=== PATIENT | male | born 1950 | race Caucasian/White ===

== ENCOUNTER → 2017-04-25 08:54 | Outpatient (CLI) | payer OTHER, SELFPAY ==
[2017-04-25 12:48] LABS: Absolute Lymphocyte Count 1.37 X10^3/ul (0.83-4.51); Absolute Neutrophil Count 4.2 X10^3/uL (2.0-7.7); Basophil# 0.01 X10^3/uL; Basophil% 0.2 % (0-1); Eosinophil# 0.18 X10^3/uL; Eosinophils% 2.9 % (0-5); Hematocrit 45.5 % (40-54); Hemoglobin 15.2 g/dl (13.0-16.5); Lymphocyte # 1.37 X10^3/ul (4.0); Lymphocyte % 21.9 % (19-41); Mean Corp Hgb Conc 33.4 g/gl (32-36); Mean Corpuscular Hgb 28.8 pg (27.0-32.0); Mean Corpuscular Volume 86.2 fL (80-94); Mean Platelet Vol. 11.2 fl (6.2-12.0); Monocyte# 0.52 X10^3/uL; Monocyte% 8.3 % (0-10); Neutrophil # 4.18 X10^3/uL (2.7-7.7); Neutrophil % 66.5 % (47-70); Platelet Count 188 K/mm3 (150-450); RBC Distribution Width CV 15.2 % (11.6-14.6); RBC Distribution Width SD 48.2 fl (35.1-43.9); Red Blood Count 5.28 M/mm3 (4.6-6.2); White Blood Count 6.3 K/mm3 (4.4-11.0)
[2017-04-25 12:54] LABS: POSITIVE COUNT NO; POSITIVE DIFFERENTIAL NO; POSITIVE MORPHOLOGY NO
[2017-04-25 12:55] LABS: PSA,Total - Annual Screen 2.02 ng/mL (0.00-4.00)
== END | disposition home or self-care (01) ==
PROVIDERS: Internal Medicine Medical Oncology; Family Provider Family Medicine; PCP Family Medicine; Visit Provider Family Medicine
DX: Z12.5 Encounter for screening for malignant neoplasm of prostate (principal)
CPT/HCPCS: 36415; 84153; 85025; G0103

== ENCOUNTER → 2017-11-02 08:13 | Outpatient (CLI) | payer MEDICARE, OTHER, SELFPAY ==
[2017-11-02 10:00] LABS: Absolute Lymphocyte Count 1.36 X10^3/ul (0.83-4.51); Absolute Neutrophil Count 4.8 X10^3/uL (2.0-7.7); Basophil# 0.01 X10^3/uL; Basophil% 0.1 % (0-1); Eosinophils% 1.4 % (0-5); Hematocrit 47.1 % (40-54); Hemoglobin 16.2 g/dl (13.0-16.5); Lymphocyte # 1.36 X10^3/ul (4.0); Lymphocyte % 19.6 % (19-41); Mean Corp Hgb Conc 34.4 g/gl (32-36); Mean Corpuscular Volume 90.2 fL (80-94); Monocyte# 0.69 X10^3/uL; Monocyte% 9.9 % (0-10); Neutrophil # 4.77 X10^3/uL (2.7-7.7); Neutrophil % 68.9 % (47-70); Platelet Count 171 K/mm3 (150-450); RBC Distribution Width CV 14.3 % (11.6-14.6); RBC Distribution Width SD 46.6 fl (35.1-43.9); Red Blood Count 5.22 M/mm3 (4.6-6.2); White Blood Count 6.9 K/mm3 (4.4-11.0)
[2017-11-02 10:11] LABS: POSITIVE COUNT NO; POSITIVE DIFFERENTIAL NO; POSITIVE MORPHOLOGY NO
[2017-11-02 10:17] LABS: AST(SGOT) 31 U/L (15-37); Alanine Aminotransfer ALT/SGPT 59 U/L (16-61); Albumin, Serum 3.9 g/dL (3.2-5.0); Alkaline Phosphatase 109 U/L (45-117); Anion Gap 7 (5-15); BUN 24 mg/dL (7-18); BUN/Creat Ratio 24.2 RATIO (10-20); Calcium,Total 9.2 mg/dL (8.5-10.1); Chloride 104 mmol/L (98-107); Cholesterol 207 mg/dL (200); Creatinine, Serum 0.99 mg/dL (0.70-1.30); EST Glomerular Filtration Rate 80 mL/min (>60); Est Glom Filt Rate - Afr Amer 97 mL/min (>60); Ferritin 31 ng/mL (26-388); Globulin 3.9 g/dL (2.2-4.2); Glucose 117 mg/dL (74-106); High Density Lipoprotein 44 mg/dL; Iron 120 ug/dL (65-175); Potassium 3.9 mmol/L (3.5-5.1); Protein, Total 7.8 g/dL (6.4-8.2); Sodium Level 138 mmol/L (136-145); Triglycerides 165 mg/dL; Very Low Density Lipoprotein 33 mg/dL (5-40)
== END ==
PROVIDERS: Internal Medicine Medical Oncology; Family Provider Family Medicine; PCP Family Medicine; Visit Provider Family Medicine
DX: E83.118 Other hemochromatosis (principal); R73.01 Impaired fasting glucose; I10 Essential (primary) hypertension; E55.9 Vitamin D deficiency, unspecified
CPT/HCPCS: 80053; 80061; 82306; 82728; 83540; 85025

== ENCOUNTER → 2018-03-15 10:15 | Outpatient (CLI) | payer MEDICARE, OTHER, SELFPAY ==
[2018-03-15 12:33] LABS: Creatinine, Serum 1.01 mg/dL (0.70-1.30); EST Glomerular Filtration Rate 79 mL/min (>60); Est Glom Filt Rate - Afr Amer 95 mL/min (>60)
== END ==
PROVIDERS: Family Provider Family Medicine; PCP Family Medicine; Visit Provider Orthopaedic Surgery
DX: M16.11 Unilateral primary osteoarthritis, right hip (principal); N17.9 Acute kidney failure, unspecified
CPT/HCPCS: 36415; 82565

== ENCOUNTER → 2018-06-08 11:44 | Outpatient (CLI) | payer MEDICARE, SELFPAY ==
[2018-06-08 11:44] VITALS: BMI 38.0
[2018-06-08 16:02] LABS: PSA,Total - Annual Screen 2.19 ng/mL (0.00-4.00)
--- OUTSIDE RECORDS SUMMARY | 2018-07-25 07:15 | XMS RPT_ITS ---
:1950 Author Organization OHIP Support Name Relationship Address Phone [facility] Unavailable [address] + [place] [address] TIMOTEO, CHELSEA Unavailable [address] [facility] + [place] [address] COLIN ACHARYA Unavailable Unavailable + [facility] Unavailable [address] + [place] [address] TIMOTEO, CHELSEA Unavailable [address] [facility] + [place] [address] COLIN ACHARYA Unavailable Unavailable + [facility] Unavailable Unavailable + [facility] Unavailable [address] + [place] [address] TIMOTEO, CHELSEA Unavailable [address] [facility] + [place] [address] COLIN ACHARYA Unavailable Unavailable + [facility] Unavailable [address] + [place] [address] TIMOTEO, CHELSEA Unavailable [address] [facility] + [place] [address] COLIN ACHARYA Unavailable Unavailable + [facility] Unavailable [address] + [place] [address] TIMOTEO CHELSEA Unavailable [address] [facility] [address] [address] [address] + [place] [address] COLIN ACHARYA Unavailable Unavailable + [facility] [address] + [place] [address] TIMOTEO, CHELSEA Unavailable [address] + [place] [address] COLIN ACHARYA Unavailable Unavailable + [facility] [address] + [place] [address] TIMOTEO, CHELSEA Unavailable [address] + [place] [address] COLIN ACHARYA Unavailable Unavailable + [facility] [address] + [place] [address] TIMOTEO, CHELSEA Unavailable [address] + [place] [address] COLIN ACHARYA Unavailable Unavailable + [facility] [address] + [place] [address] TIMOTEO, CHELSEA Unavailable [address] + [place] [address] COLIN ACHARYA Unavailable Unavailable + [facility] [address] + [place] [address] TIMOTEO, CHELSEA Unavailable [address] + [place] [address] COLIN ACHARYA Unavailable Unavailable + [facility] [address] + [place] [address] TIMOTEO, CHELSEA Unavailable [address] + [place] [address] COLIN ACHARYA Unavailable Unavailable [phone] [facility] [address] + [place] [address] TIMOTEO, CHELSEA Unavailable [address] + [place] [address] COLIN ACHARYA Unavailable Unavailable [phone] Care Team Providers Name Role Phone Rober Sandoval Attending Unavailable Dae Peoples Referring Unavailable BenjaminTres Attending Unavailable Benjamin, Tres Primary Care Unavailable Benjamin, Tres Attending Unavailable Benjamin, Tres Primary Care Unavailable Benjamin, Tres Primary Care Unavailable Bayron Ling Attending Unavailable Benjamin, Tres Primary Care Unavailable Emily Ward Attending Unavailable Mars, Gabriela Attending Unavailable Benjamin, Tres Primary Care Unavailable Benjamin, Tres Referring Unavailable Benjamin, Tres Attending Unavailable BenjaminLeandro Referring Unavailable Benjamin, Tres Primary Care Unavailable Praanay, Roque Consulting Unavailable Praanay, Roque Attending Unavailable Benjamin, Tres Referring Unavailable Benjamin, Tres Primary Care Unavailable Mars, Gabriela Consulting Unavailable Carl Alcantar Attending Unavailable Benjamin, Tres Primary Care Unavailable Prah, Roque Attending Unavailable Benjamin, Tres Referring Unavailable Benjamin, Tres Primary Care Unavailable Mars, Gabriela Consulting Unavailable Dae Peoples Admitting Unavailable Dae Peoples Attending Unavailable Dae Peoples Referring Unavailable Benjamin, Tres Primary Care Unavailable Flores Beatty Attending Unavailable Flores Beatty Referring Unavailable Benjamin, Tres Primary Care Unavailable Eshenaur, Ray Admitting Unavailable Eshenaur, Ray Attending Unavailable Arnold Escobedo Primary Care Unavailable PROBLEMS PROBLEMS DATE TYPE CONDITION / CODE ATTENDING STATUS SOURCE 06/16/2018 Unknown R30.0 - Dysuria / Tres Alexander Active [facility] R30.0(ICD-10) [facility] Repository 06/15/2018 Unknown Z96.641 - Presence of Dae Peoples Active [facility] right artificial hip [facility] joint / Hospital Z96.641(ICD-10) Repository 06/08/2018 Unknown Z12.5 - Encounter for Tres Alexander Active [facility] screening for [facility] malignant neoplasm of Hospital prostate / Repository Z12.5(ICD-10) 06/05/2018 Unknown Z01.810 - Encounter Rober Sandoval Active [facility] for preprocedural [facility] cardiovascular Hospital examination / Repository Z01.810(ICD-10) 05/10/2018 Unknown E83.119 - Roque Gunter Active [facility] Hemochromatosis, Community unspecified / Hospital E83.119(ICD-10) Repository 05/10/2018 Unknown E83.118 - Other Mars, Gabriela Active [facility] hemochromatosis / Community E83.118(ICD-10) Hospital Repository 11/02/2017 Unknown R73.01 - Impaired Tres Alexander Active Sh[facility]uth[facility] fasting glucose / Community R73.01(ICD-10) Hospital Repository 11/02/2017 Unknown I10 - Essential Tres Alexander Active Shruthi (primary) [facility] hypertension / Hospital I10(ICD-10) Repository 11/02/2017 Unknown E55.9 - Vitamin D Tres Alexander Active [facility] deficiency, Community unspecified / Hospital E55.9(ICD-10) Repository PROCEDURES PROCEDURES No Procedure Records FoundRESULTS RESULTS Observed: 07/04/2018 Status: F Source: SORRENTO CULTURE, URINE 3:30 PM [facility] REPOSITORY Urine Culture ORGANISM 1: Enterococcus faecalis Reading Count >100,000 Enterococcus faecalis: REACTION Ampicillin $ <=2 S Benzylpenicillin NF 0.5 S Ciprofloxacin $ <=0.5 S Gentamicin SYN-S S Levofloxacin $ 0.5 S Linezolid $$$$ 2 S Nitrofurantoin $ <=16 S Streptomycin $ SYN-R R Tetracycline NF >=16 R Vancomycin $ 1 S (NF) indicates non-formulary drug at [facility]. Approval by Infectious Disease Specialist required before non-formulary drugs may be ordered and/or dispensed. * CLSI guidelines does not recommend testing of cephalosporins. This interpretation is deduced from Beta-lactam/penicillin results. Performed By: #### M100.0650 #### [facility] [address] [facility] [place], [address] EMERGENCY DEPARTMENT Observed: 06/22/2018 Status: F Source: SORRENTO SUMMARY 11:35 PM [facility] REPOSITORY [facility] Medical Records Department [address] [place] [address] Emergency Department Summary 06/22/18 1802 MR#: [id number] Acct: [id number] Name: EDWIGE MAHMOOD Rep #: [id number] : 1950 67 From: Emily Ward MD PCP: Tres Alexander DO Status: DEP ER - ER Visit Summary Date of Service: 06/22/18 Chief Complaint: Urinary retention History of Present Illness: The patient is a 67 M who had a hip replacement on June 14. He had urinary retention requiring a catheter which was taken out yesterday. He feels the need to urinate but is only getting small trickles of urine. He is currently on Bactrim although his urine did not show sign of infection when seen here the . He is also on Flomax twice a day. Physical Examination: Vital signs significant for hypertension with a blood pressure of 170/90. Head neck examination normal. Heart is regular rate and rhythm. Lung sounds are clear. Abdomen is soft with mild superpubic tenderness. Test Results: [] Emergency Department Course and Treatment: Alvarez catheter was placed with 1700 cc of urine returned. Patient feels significantly improved. Alvarez will be left in place. He will continue his Flomax and will follow up with urology. Treatment Plan: [] Disposition: Discharge Impression: Urinary retention This note was generated with [employer] dictation software. It may contain incorrect words, spelling, and punctuation that were not noted in review of the chart prior to signing ED Disposition - Plan for ED Patient: Chief Complaint: Complaint Referrals: Tres Alexander, DO [Primary Care Provider] - What to do if you have Problems For any increased pain, shortness of breath, bleeding, nausea or vomiting, chest pain, or any unexpected problems, contact your Primary Care Provider. Call [facility] ([phone]) or report to the closest Emergency Room. Call 911 if necessary. 06/22/18 9620 <Electronically signed by Emily Ward MD> Date Emily Ward MD Cosigner Signature (If Indicated): Date CC: Tres Alexander DO DISCHARGE INSTRUCTION Observed: 06/22/2018 Status: F Source: SORRENTO 6:06 PM [facility] REPOSITORY [facility] Medical Records Department [address] [place] [address] Discharge Instruction 06/22/18 0575 MR#: [id number] Acct: [id number] Name: EDWIGE MAHMOOD Rep #: [id number] : 1950 67 From: Emily Ward MD PCP: Tres Alexander DO Status: REG ER ED Disposition - Plan for ED Patient: Disposition: Home or Assisted Living Chief Complaint: Complaint Instructions: ED Retention Urinary Male Referrals: Yoshi Sanderson MD [STAFF PHYSICIAN] - As soon as possible What to do if you have Problems For any increased pain, shortness of breath, bleeding, nausea or vomiting, chest pain, or any unexpected problems, contact your Primary Care Provider. Call [facility] ([phone]) or report to the closest Emergency Room. Call 911 if necessary. 06/22/181805 <Electronically signed by Emily Ward MD> Date Emily Ward MD Cosigner Signature (If Indicated): Date CC: Tres Alexander DO EMERGENCY DEPARTMENT Observed: 06/19/2018 Status: F Source: SORRENTO SUMMARY 7:03 AM [facility] Medical Records Department [address] [place] [address] Emergency Department Summary 06/17/18 0738 MR#: [id number] Acct: [id number] Name: EDWIGE MAHMOOD Rep #: [id number] : 1950 67 From: Bayron Ling DO PCP: Tres Alexander DO Status: DEP ER - ER Visit Summary Date of Service: 06/17/18 Chief Complaint: Dysuria History of Present Illness: The patient is a 67 M who is postoperative day 3 from a right total hip replacement by Dr. Peoples. He states that on Tuesday he had a surgery and he stayed overnight. He does not know if he had a catheter. He states that he developed some dysuria and on Tuesday saw his primary care physician. He had a rectal examination which found an enlarged prostate. He was already on Flomax and they had him double his Flomax. I also placed him on Bactrim for UTI. He states he continues to have dribbling, suprapubic pressure, and dysuria. He notes that he had difficulty with urination with prior abdominal surgery. He is never had urologic surgery. He denies any fevers. No bowel issues. He notes his hip is progressing appropriately. He also states that he is passing gas but has not had a bowel movement since surgery. He took a Dulcolax this morning. Physical Examination: Afebrile vital signs are stable Gen: Well-nourished well-developed Head: Normocephalic atraumatic Eyes: Perrl EOMI ENT: TMs clear no rhinorrhea moist mucous membranes Neck: Supple no lymphadenopathy no JVD nontender CVS: Regular rate rhythm no murmurs normal S1-S2 Respiratory: No distress clear to auscultation bilaterally chest nontender Abdomen: Soft suprapubic discomfort with palpation normal bowel sounds no masses Back: Nontender Extremity: ABHAY hose are in place. Surgical site clean dry and intact. Skin: Normal color no rash Neuro: alert orientated 3 CN II-XII intact normal strength sensation reflexes Psych: Normal affect normal mood Test Results: Urinalysis is negative for infection. It did dip positive for nitrates however the microscopic is normal. Creatinine is normal. White count is normal. Emergency Department Course and Treatment: Bedside ultrasound was obtained which demonstrates a distended bladder. Alvarez catheter was placed by nursing. This removed 1500 cc. Patient feels significantly improved. He is to continue on his Flomax and Bactrim. I will also give him some magnesium citrate to assist in his bowel movement. He should call his doctor's office on Tuesday to see if they have office hours and can remove the catheter. I will also give him urology's phone number and if nobody can remove it he is to come back to the emergency room for removal to see if he can urinate again. Patient and noted understanding. Impression: 1. Acute urinary retention 2. Constipation This note was generated with [employer] software. It may contain incorrect words, spelling, and punctuation that were not noted in review of the chart prior to signing ED Disposition - Plan for ED Patient: Disposition: Home or Assisted Living Chief Complaint: Complaint Instructions: ED Retention Urinary Male Referrals: Tres Alexander DO [Primary Care Provider] - (call on Tuesday to see if they are able to remove catheter) Yoshi Sanderson MD [STAFF PHYSICIAN] - (call on Tuesday if your PCP is unable to remove catheter) Additional Instructions: If no one is available to remove the catheter please return to the emergency department What to do if you have Problems For any increased pain, shortness of breath, bleeding, nausea or vomiting, chest pain, or any unexpected problems, contact your Primary Care Provider. Call [facility] ([phone]) or report to the closest Emergency Room. Call 911 if necessary. 06/19/18 0703 <Electronically signed by Bayron Ling DO> Date Bayron Ling DO Cosigner Signature (If Indicated): Date CC: Tres Alexander DO URINALYSIS, COMPLETE Collected: 06/17/2018 Status: F Source: SHRUTHI 7:35 AM [facility] REPOSITORY Order Comment: Order Date: 06/17/18 Has pt arrived? Y How was Urine Obtained? CLEAN CATCH TYPE CODE TESTS RESULT OUT OF RANGE REFERENCE UNITS LAB L400.3000 Yellow COLOR Normal Yellow LAB L400.3050 Clear Normal CLARITY Clear LAB L400.3200 Normal mg/dl Normal GLUCOSE, UR Normal LAB L400.3300 Negative mg/dL Normal BILIRUBIN URINE Negative LAB L400.3400 Negative mg/dl High 5 KETONE UR LAB L400.3465 1.002-1.030 Normal SP.GR. DIPSTX 1.010 LAB L400.3550 5.0 - 8.0 pH UR Normal 6.5 LAB L400.3600 Negative mg/dl PROT Normal DIPSTX Negative LAB L400.3700 Normal mg/dl Normal UROBILI Normal LAB L400.3750 Negative High NITRITE UR Positive LAB L400.3780 Negative /ul Normal OCCULT BLOOD-UR Negative LAB L400.3800 Negative /ul LEUK Normal ESTERASE Negative LAB L400.4050 0-5 /hpf WBC 0 Normal SEEN LAB L400.4100 0-5 /hpf 0 Normal RBC-UA SEEN LAB L400.4150 0-5 /hpf SQUAM 0 Normal EPI SEEN LAB L400.4300 None Seen /hpf 0 Normal BACTERIA SEEN LAB L400.4350 <or=2+ /hpf 0 Normal MUCUS, URINE SEEN Performed By: #### L400.0001 #### [facility] [address] [place], [address] CBC W/DIFF, AUTOMATED Collected: 06/17/2018 Status: F Source: SORRENTO 7:18 AM [facility] REPOSITORY TYPE CODE TESTS RESULT OUT OF RANGE REFERENCE UNITS LAB L100.1000 4.4-11.0 K/mm3 Normal WBC 7.2 LAB L100.1200 4.6-6.2 M/mm3 Low RBC 4.22 LAB L100.1300 13.0-16.5 g/dl Normal HGB 13.6 LAB L100.1400 40-54 % Low HCT 38.5 LAB L100.1500 80-94 fL Normal MCV 91.2 LAB L100.1600 27.0-32.0 pg High MCH 32.2 LAB L100.1700 32-36 g/gl Normal MCHC 35.3 LAB L100.1810 11.6-14.6 % Normal RDW CV 13.4 LAB L100.1820 35.1-43.9 fl High RDW SD 44.0 LAB L100.1900 150-450 K/mm3 Low PLT 148 LAB L100.2000 6.2-12.0 fl Normal MPV 10.4 LAB L100.2100 47-70 % High NEUT% 77.2 LAB L100.2200 19-41 % Low LY% 12.8 LAB L100.2300 0-10 % Normal MONO% 8.5 LAB L100.2400 0-5 % Normal EO% 1.3 LAB L100.2500 0-1 % Normal BASO% 0.1 LAB L100.2550 0.0-0.9 % Normal IM GRAN % 0.100 Result Comment: IG% - Immature Granulocytes (promyelocytes, myelocytes and metamyelocytes) > 1% indicates that a LEFT SHIFT is Present. LAB L100.2620 2.0-7.7 X10 3/uL Normal Absolute Neut 5.5 LAB L100.2720 0.83-4.51 X10 3/ul Normal Absolute Lymph 0.92 Performed By: #### L100.0100 #### [facility] [address] [place], [place], [address] BASIC METABOLIC Collected: 06/17/2018 Status: F Source: SHRUTHI PROFILE (BMP) 7:18 AM [facility] REPOSITORY TYPE CODE TESTS RESULT OUT OF RANGE REFERENCE UNITS LAB L501.0100 74-106 mg/dL High GLU 146 Result Comment: Fasting Glucose result greater than or equal to 126 mg/dL suggests DIABETES MELLITUS per A.D.A. criteria. Please note revised GLUCOSE reference range effective 2017. LAB L501.1000 7-18 mg/dL Normal BUN 12 LAB L501.1100 0.70-1.30 mg/dL Normal CREAT,SERUM 1.03 Result Comment: The validity of the calculated GFR AND GFRAA in patients over 70 years has not been determined. Clinical correlation is essential. LAB L501.1110 >60 mL/min Normal EST GFR 77 Result Comment: Non- GFR Calc LAB L501.1115 >60 mL/min Normal EST GFR - AA 93 Result Comment: GFR Calc LAB L501.1255 ml/min Normal Estimated CRCL 83.13 LAB L501.1300 10-20 RATIO Normal BUN/CRE 11.7 LAB L501.2200 8.5-10 mg/dL Normal .1 CA 8.8 LAB L501.5300 136-14 mmol/L Low 5 NA 135 LAB L501.5600 3.5-5. mmol/L Low 1 K 3.3 LAB L501.5900 98-107 mmol/L Normal CL 98 LAB L501.6100 21.0-3 mmol/L Normal 2.0 CO2 26.0 LAB L501.6200 5-15 Normal GAP 11 Performed By: #### L500.2500 #### [facility] [address] [place], [place], [address] Observed: 06/16/2018 Status: F Source: SHRUTHI CULTURE, URINE 1:27 PM [facility] REPOSITORY Urine Culture Culture exhibits no growth. Performed By: #### M100.0650 #### [facility] [address] [place], [address] DISCHARGE INSTRUCTION Observed: 06/15/2018 Status: F Source: SHRUTHI 8:36 AM [facility] REPOSITORY [facility] Medical Records Department [address] [place] [address] Instructions for Home/Discharge Instructions 06/15/18 0835 MR#: [id number] Acct: [id number] Name: EDWIGE MAHMOOD Rep #: [id number] : 1950 67 From: Ronny Dupree PA-C PCP: Tres Alexander DO Status: ADM IN Discharge Diet: No Restrictions Discharge Activity: May Not Drive - while taking narcotic pain medications. May shower in (days): 1 - Turned dressing away from water Ice area for (Minutes): 20 - Every 1-2 hours while awake Weight Bearing Status: Weight bearing as tolerated Elevate: Operative Extremity Additional Activity Instructions:: Wear elastic stockings for 2 weeks. DO NOT use alcohol with narcotic pain medication. DO NOT make important decisions while taking narcotic medication. If you have problems with taking your medication (rash, itching, nausea, etc.) call the office at once. Call your doctor if your incision/area has: Increased Pain/ Swelling, Increased Redness, Foul Smelling Discharge Call your doctor if you observe: Fever of 101 or Higher Remove Dressing in (days):: 4 - Okay to remove dressing on June 19, 2018 Additional Instructions: Follow [facility] orthopedic postop instructions Allergies/Adverse Reactions: Allergies Penicillins [PCN] Allergy (Severe, Verified 05/29/18 14:27) Hives nabumetone [From Relafen] Allergy (Verified 05/29/18 14:27) Unknown ezetimibe [From Zetia] Adverse Reaction (Intermediate, Verified 05/10/18 12:11) Pain in joints Jhjhmhm-Icg-Xwv Reductase Inhibitor Adverse Reaction (Verified 05/10/18 12:11) Unknown Medications to take at Discharge Sertraline HCl [Zoloft] 100 mg PO DAILY 05/31/13 Multivit-Min/FA/Lycopene/Lut [Centrum Silver Tablet] 1 each PO DAILY 05/22/14 Losartan/Hydrochlorothiazide [Losartan-Hctz 50-12.5 mg Tab] 1 tab PO DAILY 05/10/18 Cholecalciferol (Vitamin D3) [Vitamin D3] 5,000 unit PO DAILY 05/29/18 Acetaminophen [Tylenol] 1,000 mg PO Q8 #90 tab 06/15/18 Aspirin [Aspirin, Baby] 81 mg PO BIDCM #60 tab.chew 06/15/18 Famotidine [Pepcid] 20 mg PO DAILY #30 tab 06/15/18 Meloxicam [Mobic] 7.5 mg PO BID tablet 06/15/18 Oxycodone [Oxyir] 5 - 10 mg PO Q4H PRN PRN 5 Days #60 tab 06/15/18 Senna/Docusate Sodium [Senokot-S] 2 tab PO BID #20 tab 06/15/18 The following prescriptions were given: Oxycodone [Oxyir] 5 - 10 mg PO Q4H PRN PRN 5 Days #60 tab PRN Reason: Mod-Severe Pain (-04/05) Acetaminophen [Tylenol] 1,000 mg PO Q8 #90 tab Famotidine [Pepcid] 20 mg PO DAILY #30 tab Aspirin [Aspirin, Baby] 81 mg PO BIDCM #60 tab.chew Senna/Docusate Sodium [Senokot-S] 2 tab PO BID #20 tab Primary Care Physician: Tres Alexander DO [Primary Care Provider] - Test Results: Test results from this visit will be discussed in further detail at your follow-up appointment, if applicable. Please Follow Up With: Physical Therapy @ [facility] When: 06/19/18 @ 2:30 pm Please Follow Up With: Ronny Dupree PA-C When: 06/28/18 @ 10:30 am 06/15/18 0836 <Electronically signed by Ronny Dupree PA-C> Date Ronny Dupree PA-C CC: Tres Alexander DO CBC-COMPLETE BLOOD CNT Collected: 06/15/2018 Status: F Source: SHRUTHI NO DIFF 5:54 AM [facility] REPOSITORY TYPE CODE TESTS RESULT OUT OF RANGE REFERENCE UNITS LAB L100.1000 4.4-11.0 K/mm3 Normal WBC 10.0 LAB L100.1200 4.6-6.2 M/mm3 Low RBC 4.00 LAB L100.1300 13.0-16.5 g/dl Normal HGB 13.1 LAB L100.1400 40-54 % Low HCT 37.1 LAB L100.1500 80-94 fL Normal MCV 92.8 LAB L100.1600 27.0-32.0 pg High MCH 32.8 LAB L100.1700 32-36 g/gl Normal MCHC 35.3 LAB L100.1810 11.6-14.6 % Normal RDW CV 12.9 LAB L100.1820 35.1-43.9 fl Normal RDW SD 43.0 LAB L100.1900 150-450 K/mm3 Low PLT 146 LAB L100.2000 6.2-12.0 fl Normal MPV 10.4 Performed By: #### L100.0500 #### [facility] [place], [address] BASIC METABOLIC Collected: 06/15/2018 Status: F Source: SHRUTHI PROFILE (BMP) 5:54 AM [facility] REPOSITORY TYPE CODE TESTS RESULT OUT OF RANGE REFERENCE UNITS LAB L501.0100 74-106 mg/dL High GLU 130 Result Comment: Fasting Glucose result greater than or equal to 126 mg/dL suggests DIABETES MELLITUS per A.D.A. criteria. Please note revised GLUCOSE reference range effective 2017. LAB L501.1000 7-18 mg/dL Normal BUN 18 LAB L501.1100 0.70-1.30 mg/dL Normal CREAT,SERUM 1.06 Result Comment: The validity of the calculated GFR AND GFRAA in patients over 70 years has not been determined. Clinical correlation is essential. LAB L501.1110 >60 mL/min Normal EST GFR 74 Result Comment: Non- GFR Calc LAB L501.1115 >60 mL/min Normal EST GFR - AA 90 Result Comment: GFR Calc LAB L501.1255 ml/min Normal Estimated CRCL 78.52 LAB L501.1300 10-20 RATIO Normal BUN/CRE 17.0 LAB L501.2200 8.5-10 mg/dL Normal .1 CA 8.6 LAB L501.5300 136-14 mmol/L Normal 5 NA 137 LAB L501.5600 3.5-5. mmol/L Normal 1 K 3.9 LAB L501.5900 98-107 mmol/L Normal CL 102 LAB L501.6100 21.0-3 mmol/L Normal 2.0 CO2 28.0 LAB L501.6200 5-15 Normal GAP 7 Performed By: #### L500.2500 #### [facility] [address] [facility] [place], [address] OPERATIVE REPORT Observed: 06/14/2018 Status: F Source: SORRENTO 12:11 PM [facility] REPOSITORY [facility] Medical Records Department [address] [place] [address] Operative Report 06/14/18 1022 MR#: [id number] Acct: [id number] Name: TIMOTEO,EDWIGE Moncada Rep #: [id number] : 1950 67 From: Dae Peoples MD PCP: Tres Alexander DO Status: ADM IN Y [id number] Date of Procedure: 06/14/18 Pre-Operative Diagnosis: Right hip osteoarthritis Post-Operative Diagnosis: Right hip osteoarthritis Surgery/Procedure Performed:: Right direct anterior total hip replacement Description of Surgical Findings:: stable hip with equal leg lengths hl7 developer: Shabnam Santillan Type of Anesthesia:: Spinal Anesthesiologist: Isma Paredes Special Medications: Cleocin 600 mg, 1 g TXA at incision, 1 g TXA closure, 10 mg Decadron, joint cocktail (5 mg Duramorph, 30 mL of 0.5% Ropivicaine, 1000 units of epinephrine, 30 mg of Toradol) Specimen's removed: Bony cuts Estimated Blood Loss (mL): 350 Fluids Replaced: 1 liter crystalloid Description of Procedure: Components used: 1. Accolade 2 Vincent femoral stem size 7 127 2. [place] trident acetabular shell size 62 mm 3. Vincent X3 polyethylene g 4. Vincent Biolox delta 36mm, 0mm femoral head Brief history operative indications: 67 yo M who failed conservative measures for their hip osteoarthritis. X-rays were consistent with osteoarthritis including joint space narrowing, osteophyte formation and subchondral cysts. Total hip replacement was discussed with the patient with risks and benefits including but not limited to blood loss, DVTs, PEs, neurovascular damage, dislocation, general risks of anesthesia including loss of life. Patient demonstrated an understanding medical clearance is obtained the patient was consented for surgery. Procedure: On the date of procedure the patient's R hip was marked in the preoperative area. Patient was then taken back to the operating room where anesthesia assumed control of the C-spine and airway and administered anesthetic. Patient was transferred to the operating table and placed in the supine position. The hips were placed at the break of the bed and a sacral bump was placed. The R lower extremity was then prepped out in a sterile fashion using chlorhexidine while the surgeon scrubbed. The PA was vital in the positioning of the patient. Upon reentering the room the R lower extremity was draped in the standard orthopedic fashion and the incision was marked. A timeout was called and everyone agreed upon the side, the site, the procedure be performed, antibody given, and patient's identity. At this time incision was made through skin, subcutaneous tissue, and fat down to fascia. The fascia was then incised and the TFL was retracted laterally. A retractor was placed on the lateral border of the femoral neck. Attention was directed to the inferior portion of the approach and all crossing vessels were identified and appropriately coagulated. A retractor was then placed on the medial portion of the femoral neck. The anterior capsule was then cleared of all soft tissue and then H shaped capsulotomy was made. The retractors were then placed inside the capsule. The femoral neck was identified and a cleanup cut was made. At this time a power corkscrew was used to remove the femoral head. Attention was then turned toward the acetabulum where the soft tissues were appropriately retracted and the acetabulum was sequentially reamed to 62 mm. A 62 mm cup was then selected and impacted into place. Acetabular liner was impacted into place and locking mechanism was verified. The position of the acetabular cup was then verified under live fluoroscopy. Attention was then turned to the femur. Soft tissue releases on the medial and lateral femoral neck were appropriately done, the leg was externally rotated and lateralized. A Lott retractor was placed medially and proximally to the greater trochanter this allowed appropriate visualization and exposure of the femoral canal. Rongeour was then used to remove excess lateral bone. A canal finder and entry broach were used to open the proximal canal. Once we verified we were down the femoral canal we subsequently broached up to a size 7 femur. The appropriate neck was placed in the previously selected head was trialed with a 0 mm neck. Traction was pulled and the hip was reduced with internal rotation. Once it was appropriately reduced and stability was checked. There was minimal shuck, equal leg lengths and appropriate stability with hyperextension and external rotation as well as with 90 flexion and internal rotation. Fluoroscopy was then also used to verify the position of the components and leg lengths using the contralateral side for comparison. The trial components were then dislocated the proximal femur was again exposed and the components were removed from the wound. The final components were verified and opened. The wound was copiously irrigated out with normal saline. The acetabulum was checked for any residual debris. The final components were placed and impacted. Traction and internal rotation were again used to reduce the hip. After adequate reduction the hip remained stable with appropriate leg lengths. The final components were once again checked with live fluoroscopy and were found to be satisfactory. The wound was then copiously irrigated with normal saline once more, and hemostasis was obtained. Closure was then done using #1 Vicryl runner to close the fascia. A 2-0 vicryl interuppted sutures were used to close the subcutaneous skin. A 3-0 Monocryl and Steri-Strips were used for final skin closure. A Silverlon dressing was placed. Patient was awakened by anesthesia and transferred to the [facility]. Patient was then transferred to the PACU for recovery. Postoperative plan: Patient will get 24 hours postop antibiotics. Patient will get in-house physical therapy and will be weight-bear as tolerated. Patient will follow up in office in 2 weeks for a wound check and x-rays. Grafts/Implants Used: Accolade 2, Trident 2 - Complications none - Admit VTE Documentation VTE Present on Admission: No VTE Mechan Device Prophylaxis: SCD's, Thigh High ABHAY Hose VTE Pharm Prophylaxis ordered?: Yes 06/14/18 1211 <Electronically signed by Dae Peoples MD> Date Dae Peoples MD CC: Tres Alexander DO; Dae Peoples MD Signed HIP MIN 2 VIEWS Observed: 06/14/2018 Status: F Source: SHRUTHI (PORTABLE) 7:17 AM [facility] REPOSITORY [facility] Imaging Services [address] [place] [address] Hip Min 2 Views (Portable) MR#: [id number] Acct: [id number] Name: EDWIGE MAHMOOD Rep #: [id number] : 1950 M 67 From: Devan Ny MD PCP: Tres Alexander DO Status: ADM IN Study: Hip Min 2 Views (Portable) Date of Exam: 06/14/18 Exam# [id number] Ordering Dr: Dae Peoples MD STUDY: X-RAY - RIGHT HIP REASON FOR EXAM: Male, 67 years old. Right hip replacement. TECHNIQUE: 2 views of the hip. COMPARISON: None. FINDINGS: The patient is status post right total hip replacement. There is good alignment. RAD/Hip Min 2 Views (Portable) IMPRESSION: Status post right total hip replacement. Electronically Signed: Devan Ny MD at 14:24 EST Tel [phone], Service support , CC: Tres Alexander DO; Dae Peoples MD Planning And Analysis Manager: Signed HIP 1 VIEW WITH Observed: 06/14/2018 Status: F Source: SHRUTHI PELVIS 2:59 AM [facility] REPOSITORY [facility] Imaging Services [address] [place] [address] Hip 1 view with Pelvis MR#: [id number] Acct: [id number] Name: EDWIGE MAHMOOD Coral Rep #: [id number] : 1950 M 67 From: Devan Ny MD PCP: Tres Alexander DO Status: ADM IN Study: Hip 1 view with Pelvis Date of Exam: 06/14/18 Exam# [id number] Ordering Dr: Dae Peoples MD STUDY: X-RAY - RIGHT HIP REASON FOR EXAM: Male, 67 years old. Anterior thalamic replacement. TECHNIQUE: 2 coned-down intraoperative views of the hip. COMPARISON: None. FINDINGS: Intraoperative fluoroscopic imaging was provided for right hip replacement. RAD/Hip 1 view with Pelvis IMPRESSION: Intraoperative imaging provided for right hip replacement. There is good alignment. Electronically Signed: Devan yN MD at 12:58 EST Tel [phone], Service support , CC: Tres Alexander DO; Dae Peoples MD Planning And Analysis Manager: Signed PSA,TOTAL - ANNUAL Collected: 06/08/2018 Status: F Source: SORRENTO SCREEN 11:52 AM [facility] REPOSITORY TYPE CODE TESTS RESULT OUT OF RANGE REFERENCE UNITS LAB L501.9910 0.00-4.00 ng/mL Normal PSA,TOT 2.19 SCREEN Result Comment: This test was performed using the TPSA assay method for the [employer] chemistry system. Values obtained with different assay methods cannot be used interchangably. When changing PSA assays in the course of monitoring a patient, additional sequential testing should be carried out to confirm baseline values. Performed By: #### L501.9910 #### [facility] [address] [place] [address]. [place], [address] HISTORY AND PHYSICAL Observed: 05/30/2018 Status: F Source: SORRENTO EXAM 9:59 PM [facility] REPOSITORY [facility] Medical Records Department [address] [place] [address] History and Physical 05/30/18 2158 MR#: [id number] Acct: [id number] Name: EDWIGE MAHMOOD Rep #: [id number] : 1950 67 From: Ronny Dupree PA-C PCP: Benjamin MENDOZATres Status: PRE IN Y Location: [facility] History and Physical DATE OF SURGERY: 06/14/2018 SCHEDULED PROCEDURE: Right Total Hip Arthroplasty HISTORY OF PRESENT ILLNESS: This is a 67-year-old male who is been having ongoing pain in his right hip since November 2017. Patient states his hip pain has been progressively getting worse. Pain is intermittent, aching, sharp, stabbing. She has increased pain standing. He has increased pain with walking. Patient does complain of startup pain. Pain is located over the lateral hip and radiates into the groin. He has difficult time with activities of daily living including getting dressed putting on socks as well as leisure activities such as walking. Pain does waken him at night. Patient has tried conservative measures consisting of rest, ice, elevation with minimal relief. Patient had an intra-articular right hip injection with only temporary relief. He states the injection gave him approximately 1 day of relief. He has been through physical therapy with no relief in symptoms. He has also been to the chiropractor with no relief in symptoms. Patient denies previous surgery on the right hip. Patient denies any chest pain, shortness of breath, fevers chills, or recent infections. Patient has a medical history pertinent for hypertension, M ni re's disease, hemachromatosis. We are obtaining surgical clearance from his primary care physician. Patient does see Dr. Gunter for his hemachromatosis. REVIEW OF SYSTEMS: ROS: Const: Reports hard of hearing, denies anorexia, anxiety, change in appetite, fever and weight change and vision problems. CV: Denies chest pain, heart murmur, irregular heartbeat and peripheral vascular disease. Resp: Reports sleep apnea (mild), but denies asthma, cough, pneumonia, SOB, tuberculosis and wheezing GI: Denies constipation, diarrhea, heartburn, nausea, bloody stools and vomiting, and difficulty swallowing. : Denies incontinence. Musculo: Denies leg swelling, trouble walking and weakness and limp. Skin: Denies Raynaud's, history of shingles and tattoo. Neuro: Denies ambulatory dysfunction, dizziness, numbness/tingling and tremor. Psych: Denies anxiety, depression, insomnia, mental illness and stress. Dwight/Lymph: Denies anemia, bleeding/bruising tendency and past transfusion. Reviewed, no changes. PAST MEDICAL HISTORY: Advance Care Plan: Other Directive, LIVING WILL Effective Date: 01/17/2018 PMH: Medical Problems: Arthritis, High Blood Pressure, Psoriasis, Mineres, Hemacromotosis Accidents: Fracture - Ankle Surgical Hx: Appendectomy - Shruthi Colon Resection - (1999) Shruthi Hernia Repair - [place] Arthroscopy - (09/07/2006) R KNEE [facility] MSK Back Fusion And L4 Removed - Vasectomy Hemilaminotomy Revision, Neuroforaminotomy - (03/17/2011) CAR @ [facility] Anesthesia Complications: None Assistive Devices: Dentures, Glasses, Hearing Aid Reviewed and updated. 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 Personal Habits: Smoking: Patient is a former smoker.Cigarette Use: Former - 1 pk/day for 15 yrs .Alcohol: Occasionally.Drug Use: Denies Use.Enjoy Exercising: Daily. Reviewed and updated. VITALS: Ht: 73.5 Wt: 299lb Wt k.626 BMI: 38.9 BP: 142/87 Pulse: 65 Resp: 20 T: 97.9 T: 36.6C ALLERGIES: Penicillin Relafen MEDICATIONS: Meloxicam 15 mg 1 by mouth every day, Vitamin D 5000 Unit 1po qday, Sertraline HCL 100 mg 1po qday, Losartan Potassium/Hydrochlorothiazide 50-12.5 mg 1 tab PO daily PRE-OP EXAM: General appearance:NORMAL Other: Eyes: Conjunctivae and lids: NORMAL Pupils: ERR Ears, Nose, Mouth, and Throat: NORMAL Other: Inspection of lips, teeth and gums: NORMAL Other: Neck: Examination of neck: no masses noted. Respiratory: Assessment of respiratory effort: NORMAL Other: Auscultation of lungs: clear to auscultation no wheezes, rhonchi or rales. Cardiovascular: Auscultation of heart: regular rate and rhythm, no murmurs, gallops or rubs. Exam of carotid arteries: NORMAL Other: Gastrointestinal: Exam of abdomen: soft, nontender, nondistended bowel sounds present. PHYSICAL EXAMINATION: Patient does walk with an antalgic gait. Patient has tenderness to palpation over the right greater trochanter. Range of motion right hip: Forward flexion 80, internal rotation neutral, external rotation 20. Pain is increased with range of motion. Patient has pain and weakness with single-leg stance on the right. Sensation intact to light touch. Neurovascularly intact. IMAGING STUDIES: X-rays of the right hip reveal joint space narrowing, subchondral sclerosis, osteophyte formation consistent with moderate to severe osteoarthritis. MRI of the right hip showed degenerative tearing of the labrum with articular cartilage thinning and subchondral cysts in the femoral head and acetabulum. This is consistent with severe arthrosis of the hip. Lumbar MRI reveals significant L5-S1 left sided foraminal stenosis and degenerative changes in lumbar spine. IMPRESSION: 1. Severe right hip osteoarthritis 2. Lumbar degenerative disc disease 3. Hypertension 4. M ni re's disease 5. Hemochromatosis PLAN: Dr. Dae Peoples did discuss and review with the patient all treatment options including surgical versus nonsurgical options. Patient does wish to proceed with the above-stated procedure. Potential risks, benefits, and complications of the procedure were discussed in detail including but not limited to , infection, nerve and blood vessel damage, persistent pain, numbness, tingling, paresthesias, blood clot, pulmonary embolism, and requirement for possible further surgery. The patient expressed full understanding and has no further questions for the doctor. Patient does agree to proceed with the above-stated procedure and has signed the surgery consent form. This dictation was created using voice recognition software. Phonetic and/or grammatical errors may exist.. ___ I have re-examined the patient. There are no clinical changes since date of exam. ___ See progress notes for changes. ___ Dictated on admission Date: Time: Signature: 05/30/18 2909 <Electronically signed by Ronny Eshenaur PA-C> Date Ronny Dupree PA-C Cosigner Signature: Date (if applicable) CC: Tres Alexander DO; Ronny PRIETO Signed 12 LEAD ELECTROCARDIOGRAM Observed: 05/30/2018 Status: F Source: SHRUTHI 3:28 PM [facility] REPOSITORY [facility] Cardiovascular Services [address] [place] [address] EKG - [facility] 05/29/18 1509 MR#: [id number] Acct: [id number] Name: EDWIGE MAHMOOD Rep #: [id number] : 1950 67 From: Rober Sandoval MD Attending Dr: Dae Peoples MD Status: PRE IN Ordering Dr: Dae Peoples MD Date: 05/29/18 Location: [facility] Sex: M C Admitted: Test Reason : Blood Pressure : / mmHG Vent. Rate : 060 BPM Atrial Rate : 060 BPM P-R Int : 162 ms QRS Dur : 076 ms QT Int : 400 ms P-R-T Axes : 047 058 038 degrees QTc Int : 400 ms Normal sinus rhythm Normal ECG Confirmed by LORI FREEMAN, ROBER ([id number]), editor magazine [employer]ATORRE ([id number]) on 05/30/2018 3:28:03 PM Referred By: Dae Peoples Confirmed By:ROBER SANDOVAL MD 05/30/18 1528 Date Rober Sandoval MD CC: Tres Alexander DO; Dae Peoples MD Date Dictated: 05/29/18 1509 Date Transcribed: 05/29/18 150 Planning And Analysis Manager: Signed CBC W/DIFF, AUTOMATED Collected: 05/29/2018 Status: F Source: SHRUTHI 3:14 PM [facility] REPOSITORY TYPE CODE TESTS RESULT OUT OF RANGE REFERENCE UNITS LAB L100.1000 4.4-11.0 K/mm3 Normal WBC 8.9 LAB L100.1200 4.6-6.2 M/mm3 Normal RBC 5.16 LAB L100.1300 13.0-16.5 g/dl High HGB 16.7 LAB L100.1400 40-54 % Normal HCT 47.0 LAB L100.1500 80-94 fL Normal MCV 91.1 LAB L100.1600 27.0-32.0 pg High MCH 32.4 LAB L100.1700 32-36 g/gl Normal MCHC 35.5 LAB L100.1810 11.6-14.6 % Normal RDW CV 13.5 LAB L100.1820 35.1-43.9 fl High RDW SD 44.4 LAB L100.1900 150-450 K/mm3 Normal PLT 182 LAB L100.2000 6.2-12.0 fl Normal MPV 11.0 LAB L100.2100 47-70 % Normal NEUT% 65.5 LAB L100.2200 19-41 % Normal LY% 23.3 LAB L100.2300 0-10 % Normal MONO% 9.0 LAB L100.2400 0-5 % Normal EO% 1.7 LAB L100.2500 0-1 % Normal BASO% 0.2 LAB L100.2550 0.0-0.9 % Normal IM GRAN % 0.300 Result Comment: IG% - Immature Granulocytes (promyelocytes, myelocytes and metamyelocytes) > 1% indicates that a LEFT SHIFT is Present. LAB L100.2620 2.0-7.7 X10 3/uL Normal Absolute Neut 5.8 LAB L100.2720 0.83-4.51 X10 3/ul Normal Absolute Lymph 2.06 Performed By: #### L100.0100 #### [facility] [address] [place], [place], [id number] BASIC METABOLIC Collected: 05/29/2018 Status: F Source: SHRUTHI PROFILE (BMP) 3:14 PM [facility] REPOSITORY TYPE CODE TESTS RESULT OUT OF RANGE REFERENCE UNITS LAB L501.0100 74-106 mg/dL High GLU 119 Result Comment: Fasting Glucose result from 100 to 125 mg/dL suggests IMPAIRED HOMEOSTASIS per A.D.A. criteria. Please note revised GLUCOSE reference range effective 2017. LAB L501.1000 7-18 mg/dL High BUN 23 LAB L501.1100 0.70-1.30 mg/dL Normal CREAT,SERUM 0.92 Result Comment: The validity of the calculated GFR AND GFRAA in patients over 70 years has not been determined. Clinical correlation is essential. LAB L501.1110 >60 mL/min Normal EST GFR 87 Result Comment: Non- GFR Calc LAB L501.1115 >60 mL/min Normal EST GFR - AA 106 Result Comment: GFR Calc LAB L501.1255 ml/min Normal Estimated CRCL 90.47 LAB L501.1300 10-20 RATIO High BUN/CRE 24.9 LAB L501.2200 8.5-10 mg/dL Normal .1 CA 9.3 LAB L501.5300 136-14 mmol/L Normal 5 NA 137 LAB L501.5600 3.5-5. mmol/L Normal 1 K 3.8 LAB L501.5900 98-107 mmol/L Normal CL 102 LAB L501.6100 21.0-3 mmol/L Normal 2.0 CO2 25.0 LAB L501.6200 5-15 Normal GAP 10 Performed By: #### L500.2500 #### [facility] [address] [facility] [place], [address] Observed: 05/29/2018 Status: F Source: SORRENTO MRSA/SAID SCREEN 3:14 PM [facility] REPOSITORY MRSA/SAID SCRN S. AUREUS S. aureus Negative MRSA MRSA Negative Performed By: #### M100.651 #### [facility] [place], [address] ONCOLOGY VISIT REPORT Observed: 05/10/2018 Status: F Source: SORRENTO 12:12 PM [facility] REPOSITORY [facility] [address] [address] OFFICE VISIT Date of Service: 05/10/18 1159 MR#: [id number] Acct: [id number] Name: EDWIGE MAHMOOD Rep #: [id number] : 1950 From: Roque Gunter MD Age/Sex: 67/M Location: ON[facility] Status: Signed Subjective - Date of Service Date of Service:: 05/10/18 - Chief Complaint F/u for hemochromatosis. 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 He has been having therapeutic phlebotomies, lately on hold because Ferritin has been less than 50. Comes in for follow up today. He feels well, going for R hip surgery. He feels he has a foreign body sensation in the back of the tongue x 2 wks. - Past Medical/Social History Past Medical History Past Medical History: Arthritis,Diverticulitis,Hyperlipidemia, Hypertension Other Past Medical History: Hereditary Hemochromatosis cirrhoisis vertigo MAURI Past Surgical History Surgical: Appendectomy,Back,Colon resection,Hernia repair Other Surgical History: Vasectomy Bilateral eye surgery Left Retinal Repair Right ear shunt Family History Paternal Past Medical History: Heart disease Maternal Past Medical History: COPD Social History Smoking Status Unknown if ever smoked Review of Systems Constitutional:: Denies: Fever, Sweats, Weight loss, Appetite change, Chills Cardiovascular:: Denies: Chest pain, Palpitations, Dyspnea on exertion, Orthopnea, PND, Shortness of breath Respiratory: Denies: Cough, Hemoptysis, Shortness of Breath, Wheezing Gastrointestinal:: Denies: Abdominal pain, Nausea, Vomiting, Diarrhea, Constipation, Hematochezia Genitourinary: Denies: Dysuria, Hematuria, 15, Flank pain Musculoskeletal:: Denies: Back pain, Myalgia, Arthralgia Skin: Denies: Rash, Skin Changes, Wounds Neurological:: Denies: Headache, Dizziness, Visual changes, Tinnitus, Hearing loss Psychiatric: Denies: Anxiety, Depression, Homicidal Ideations, Suicidal Ideations Vital Signs Height 6 ft 2.5 in Weight: 131.088 kg Weight in Pounds 289.0 lbs Pulse Ox 95 - Physical Exam General: Alert, Oriented x3, No apparent distress HEENT: Atraumatic, PERRLA, EOMI, Normocephalic Oropharynx:: Dry mucosa Neck:: Supple, Trachea midline. Negative for: JVD, bilateral Cardiac:: Regular rate, Regular rhythm, Normal S1, Normal S2. Negative for: Murmur Lungs: Clear to auscultation, Excusion symmetrical. Negative for: Rhonchi, Wheezes Abdomen:: Bowel sounds x 4, Soft, Non-tender, Non-distended. Negative for: Hepatosplenomegaly Extremities:: Negative for: Cyanosis, Edema Neurological: Neuro grossly intact Skin:: Negative for: Lesions, Rash, Petechiae, Ecchymosis Psychiatric:: Appropriate affect, Euthymic Lymphatics:: Negative for: Cervical lymphadenopathy, Supraclavicular lymphadenopathy, Axillary lymphadenopathy Laboratory Data: Laboratory Tests WBC 5.8 (4.4-11.0) K/mm3 RBC 4.84 (4.6-6.2) M/mm3 Hgb 15.9 (13.0-16.5) g/dl Laboratory Tests Iron 76 Ferritin 26 Assessment and Plan Hemochromatosis, Ferritin 26 on 05/04/2018. No need for phlebotomy. Foreign body sensation in throat. Plan is to continue Observation. He will contact ENT-Dr. Briggs for evaluation. Pt wants 6 months follow up. RTC 6 months with CBC, Ferritin. Medications: Prescriptions This Visit Medication Instructions Recorded Meloxicam [Mobic] 15 mg PO QODAY 09/16/16 Primary Care Provider: Tres Alexander DO Referring Provider: - Problem List (1) Hemochromatosis Status: Chronic Code Visit Office Visits / Consults: [id number] OV L3 Est 05/10/18 1212 <Electronically signed by Roque Gunter MD> Date Roque Gunter MD Cosigner Signature: Date (if applicable) CC: Tres Alexander DO CBC W/DIFF, AUTOMATED Collected: 05/10/2018 Status: F Source: SHRUTHI 11:17 AM [facility] REPOSITORY Order Comment: Reason for Laboratory Test . TYPE CODE TESTS RESULT OUT OF RANGE REFERENCE UNITS LAB L100.1000 4.4-11.0 K/mm3 Normal WBC 5.8 LAB L100.1200 4.6-6.2 M/mm3 Normal RBC 4.84 LAB L100.1300 13.0-16.5 g/dl Normal HGB 15.9 LAB L100.1400 40-54 % Normal HCT 45.2 LAB L100.1500 80-94 fL Normal MCV 93.4 LAB L100.1600 27.0-32.0 pg High MCH 32.9 LAB L100.1700 32-36 g/gl Normal MCHC 35.2 LAB L100.1810 11.6-14.6 % Normal RDW CV 13.9 LAB L100.1820 35.1-43.9 fl High RDW SD 47.3 LAB L100.1900 150-450 K/mm3 Normal PLT 153 LAB L100.2000 6.2-12.0 fl Normal MPV 11.1 LAB L100.2100 47-70 % Normal NEUT% 62.3 LAB L100.2200 19-41 % Normal LY% 23.2 LAB L100.2300 0-10 % High MONO% 10.7 LAB L100.2400 0-5 % Normal EO% 3.4 LAB L100.2500 0-1 % Normal BASO% 0.2 LAB L100.2550 0.0-0.9 % Normal IM GRAN % 0.200 Result Comment: IG% - Immature Granulocytes (promyelocytes, myelocytes and metamyelocytes) > 1% indicates that a LEFT SHIFT is Present. LAB L100.2620 2.0-7.7 X10 3/uL Normal Absolute Neut 3.6 LAB L100.2720 0.83-4.51 X10 3/ul Normal Absolute Lymph 1.35 Performed By: #### L100.0100 #### [facility] [address] [place], [address] COMPREHENSIVE METABOLIC Collected: 05/10/2018 Status: F Source: [facility] 11:17 AM [facility] REPOSITORY Order Comment: Reason for Laboratory Test . TYPE CODE TESTS RESULT OUT OF RANGE REFERENCE UNITS LAB L501.0100 74-106 mg/dL High GLU 117 Result Comment: Fasting Glucose result from 100 to 125 mg/dL suggests IMPAIRED HOMEOSTASIS per A.D.A. criteria. Please note revised GLUCOSE reference range effective 2017. LAB L501.1000 7-18 mg/dL High BUN 28 LAB L501.1100 0.70-1.30 mg/dL Normal CREAT,SERUM 1.00 Result Comment: The validity of the calculated GFR AND GFRAA in patients over 70 years has not been determined. Clinical correlation is essential. LAB L501.1110 >60 mL/min Normal EST GFR 80 Result Comment: Non- GFR Calc LAB L501.1115 >60 mL/min Normal EST GFR - AA 97 Result Comment: GFR Calc LAB L501.1255 ml/min Normal Estimated CRCL 85.63 LAB L501.1300 10-20 RATIO High BUN/CRE 28.1 LAB L501.1500 6.4-8. g/dL Normal 2 T PROT 7.6 LAB L501.1800 3.2-5. g/dL Normal 0 ALB 3.7 LAB L501.1950 2.2-4. g/dL Normal 2 GLOB 3.9 LAB L501.2000 0.9-2. RATIO Normal 4 A/G 0.9 LAB L501.2200 8.5-10 mg/dL Normal .1 CA 8.9 LAB L501.4100 15-37 U/L High AST 69 LAB L501.4305 45-117 U/L Normal ALK P 116 LAB L501.4405 16-61 U/L High ALT 99 LAB L501.4600 0.20-1 mg/dL Normal .00 T BILI 0.70 LAB L501.5300 136-14 mmol/L Normal 5 NA 141 LAB L501.5600 3.5-5. mmol/L Normal 1 K 4.3 LAB L501.5900 98-107 mmol/L Normal CL 107 LAB L501.6100 21.0-3 mmol/L Normal 2.0 CO2 25.0 LAB L501.6200 5-15 Normal GAP 9 Performed By: #### L500.4050 #### [facility] [address] [place], [place], [address] AFP, TUMOR MARKER Collected: 05/10/2018 Status: F Source: SORRENTO 11:17 AM [facility] REPOSITORY Order Comment: Reason for Laboratory Test . Is Patient ? N TYPE CODE TESTS RESULT OUT OF RANGE REFERENCE UNITS LAB L3300.0700 0.0-8.3 ng/mL Normal AFP TUMOR 2.1 2253 Result Comment: Ginger ECLIA methodology Performed at: - [facility] [address], [place], [place] [id number] Registrar Nurses' Registry: Hao Marks PhD, Phone: [phone] Performed By: #### L3300.0700 #### [facility] (refer to report for specific site) refer to report for address and phone number IRON Collected: 05/10/2018 Status: F Source: SORRENTO 11:17 AM [facility] REPOSITORY Order Comment: Reason for Laboratory Test . Reason for Laboratory Test . TYPE CODE TESTS RESULT OUT OF RANGE REFERENCE UNITS LAB L503.6150 65-175 ug/dL Normal IRON 103 Performed By: #### L503.6150, L503.6550 #### [facility] [address] [place], [place], [address] FERRITIN Collected: 05/10/2018 Status: F Source: SORRENTO 11:17 AM [facility] REPOSITORY Order Comment: Reason for Laboratory Test . Reason for Laboratory Test . TYPE CODE TESTS RESULT OUT OF RANGE REFERENCE UNITS LAB L503.6550 26-388 ng/mL Normal FERRITIN 48 Performed By: #### L503.6150, L503.6550 #### [facility] [address] [place], [place], [address] SERUM CREATININE AND Collected: 03/15/2018 Status: F Source: SORRENTO GFR 10:18 AM [facility] REPOSITORY TYPE CODE TESTS RESULT OUT OF RANGE REFERENCE UNITS LAB L501.1100 0.70-1.30 mg/dL Normal 1.01 CREAT,SERUM Result Comment: The validity of the calculated GFR AND GFRAA in patients over 70 years has not been determined. Clinical correlation is essential. LAB L501.1110 >60 mL/min Normal EST GFR 79 Result Comment: Non- GFR Calc LAB L501.1115 >60 mL/min Normal EST GFR - AA 95 Result Comment: GFR Calc Performed By: #### L501.1105 #### [facility] [address] [place], [place], [address] ONCOLOGY VISIT REPORT Observed: 11/02/2017 Status: F Source: SORRENTO 11:48 AM [facility] REPOSITORY [facility] [address] [place] [address] OFFICE VISIT Date of Service: 11/02/17 1130 MR#: [id number] Acct: [id number] Name: EDWIGE MAHMOOD Rep #: [id number] : 1950 From: Roque Gunter MD Age/Sex: 67/M Location: ONC Status: Signed Subjective - Date of Service Date of Service:: 11/02/17 - Chief Complaint F/u for hemochromatosis. 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 He has been having therapeutic phlebotomies, comes in for follow up today. He feels well. - Past Medical/Social History Past Medical History Past Medical History: Arthritis,Diverticulitis,Hyperlipidemia, Hypertension Other Past Medical History: Hereditary Hemochromatosis cirrhoisis vertigo MAURI Past Surgical History Surgical: Appendectomy,Back,Colon resection,Hernia repair Other Surgical History: Vasectomy Bilateral eye surgery Left Retinal Repair Right ear shunt Family History Paternal Past Medical History: Heart disease Maternal Past Medical History: COPD Social History Smoking Status Unknown if ever smoked Review of Systems Constitutional:: Denies: Fever, Sweats, Weight loss, Appetite change, Chills Cardiovascular:: Denies: Chest pain, Palpitations, Dyspnea on exertion, Orthopnea, PND, Shortness of breath Respiratory: Denies: Cough, Hemoptysis, Shortness of Breath, Wheezing Gastrointestinal:: Denies: Abdominal pain, Nausea, Vomiting, Diarrhea, Constipation, Hematochezia Genitourinary: Denies: Dysuria, Hematuria, 15, Flank pain Musculoskeletal:: Denies: Back pain, Myalgia, Arthralgia Skin: Denies: Rash, Skin Changes, Wounds Neurological:: Denies: Headache, Dizziness, Visual changes, Tinnitus, Hearing loss Psychiatric: Denies: Anxiety, Depression, Homicidal Ideations, Suicidal Ideations Vital Signs Height 6 ft 2.5 in Weight: 131.088 kg Weight in Pounds 289.0 lbs Pulse Ox 95 - Physical Exam General: Alert, Oriented x3, No apparent distress HEENT: Atraumatic, PERRLA, EOMI, Normocephalic Oropharynx:: Dry mucosa Neck:: Supple, Trachea midline. Negative for: JVD, bilateral Cardiac:: Regular rate, Regular rhythm, Normal S1, Normal S2. Negative for: Murmur Lungs: Clear to auscultation, Excusion symmetrical. Negative for: Rhonchi, Wheezes Abdomen:: Bowel sounds x 4, Soft, Non-tender, Non-distended. Negative for: Hepatosplenomegaly Extremities:: Negative for: Cyanosis, Edema Neurological: Neuro grossly intact Skin:: Negative for: Lesions, Rash, Petechiae, Ecchymosis Psychiatric:: Appropriate affect, Euthymic Lymphatics:: Negative for: Cervical lymphadenopathy, Supraclavicular lymphadenopathy, Axillary lymphadenopathy Laboratory Data: 11/02/2017 ferritin 31. Assessment and Plan Hemochromatosis, Ferritin 31 today. No need for phlebotomy. Plan is to continue Observation. Pt wants 6 months follow up. RTC 6 months with CBC, Ferritin. Medications: Prescriptions This Visit Medication Instructions Recorded Meloxicam [Mobic] 15 mg PO QODAY 09/16/16 Primary Care Provider: Tres Alexander DO Referring Provider: - Problem List (1) Hemochromatosis Status: Chronic Code Visit Office Visits / Consults: 21403 OV L3 Est 11/02/17 1148 <Electronically signed by Roque Gunter MD> Date Roque Gunter MD Cosigner Signature: Date (if applicable) CC: VITAMIN D,25 HYDROXY Collected: 11/02/2017 Status: F Source: SHRUTHI 8:27 AM [facility] REPOSITORY Order Comment: DR ALEXANDER ORDERED VITD/LIPID/CMP DR GUNTER ORDERED CBCD/CMP/CRISTY/FE TYPE CODE TESTS RESULT OUT OF REFERENCE UNITS RANGE LAB L506.1000 29.95-100.01 ng/mL Low Vitamin D 24.0 25-OH Result Comment: Vitamin D 25(OH) Status Range Deficiency <20 ng/mL (50nmol/L) Insuffciency 20 - 30 ng/mL (50 - 75 nmol/L) Sufficiency 30 - 100 ng/mL (75 - 250 nmol/L) Toxicity >100 ng/mL (>250 nmol/L) Performed By: #### L506.1000 #### [facility] [place], [address] CBC W/DIFF, AUTOMATED Collected: 11/02/2017 Status: F Source: SHRUTHI 8:25 AM [facility] REPOSITORY Order Comment: Reason for Laboratory Test OV DR ALEXANDER ORDERED VITD/LIPID/CMP DR GUNTER ORDERED CBCD/CMP/CRISTY/FE TYPE CODE TESTS RESULT OUT OF RANGE REFERENCE UNITS LAB L100.1000 4.4-11.0 K/mm3 Normal WBC 6.9 LAB L100.1200 4.6-6.2 M/mm3 Normal RBC 5.22 LAB L100.1300 13.0-16.5 g/dl Normal HGB 16.2 LAB L100.1400 40-54 % Normal HCT 47.1 LAB L100.1500 80-94 fL Normal MCV 90.2 LAB L100.1600 27.0-32.0 pg Normal MCH 31.0 LAB L100.1700 32-36 g/gl Normal MCHC 34.4 LAB L100.1810 11.6-14.6 % Normal RDW CV 14.3 LAB L100.1820 35.1-43.9 fl High RDW SD 46.6 LAB L100.1900 150-450 K/mm3 Normal PLT 171 LAB L100.2000 6.2-12.0 fl Normal MPV 11.0 LAB L100.2100 47-70 % Normal NEUT% 68.9 LAB L100.2200 19-41 % Normal LY% 19.6 LAB L100.2300 0-10 % Normal MONO% 9.9 LAB L100.2400 0-5 % Normal EO% 1.4 LAB L100.2500 0-1 % Normal BASO% 0.1 LAB L100.2550 0.0-0.9 % Normal IM GRAN % 0.100 Result Comment: IG% - Immature Granulocytes (promyelocytes, myelocytes and metamyelocytes) > 1% indicates that a LEFT SHIFT is Present. LAB L100.2620 2.0-7.7 X10 3/uL Normal Absolute Neut 4.8 LAB L100.2720 0.83-4.51 X10 3/ul Normal Absolute Lymph 1.36 Performed By: #### L100.0100 #### [facility] [address] [place], [address] COMPREHENSIVE METABOLIC Collected: 11/02/2017 Status: F Source: SHRUTHI [facility] 8:25 AM [facility] REPOSITORY Order Comment: Reason for Laboratory Test OV DR ALEXANDER ORDERED VITD/LIPID/CMP DR GUNTER ORDERED CBCD/CMP/CRISTY/FE TYPE CODE TESTS RESULT OUT OF RANGE REFERENCE UNITS LAB L501.0100 74-106 mg/dL High GLU 117 Result Comment: Fasting Glucose result from 100 to 125 mg/dL suggests IMPAIRED HOMEOSTASIS per A.D.A. criteria. Please note revised GLUCOSE reference range effective 2017. LAB L501.1000 7-18 mg/dL High BUN 24 LAB L501.1100 0.70-1.30 mg/dL Normal CREAT,SERUM 0.99 Result Comment: The validity of the calculated GFR AND GFRAA in patients over 70 years has not been determined. Clinical correlation is essential. LAB L501.1110 >60 mL/min Normal EST GFR 80 Result Comment: Non- GFR Calc LAB L501.1115 >60 mL/min Normal EST GFR - AA 97 Result Comment: GFR Calc LAB L501.1300 10-20 RATIO High BUN/CRE 24.2 LAB L501.1500 6.4-8.2 g/dL T Normal PROT 7.8 LAB L501.1800 3.2-5.0 g/dL Normal ALB 3.9 LAB L501.1950 2.2-4.2 g/dL Normal GLOB 3.9 LAB L501.2000 0.9-2.4 RATIO Normal A/G 1.0 LAB L501.2200 8.5-10.1 mg/dL CA Normal 9.2 LAB L501.4100 15-37 U/L Normal AST 31 LAB L501.4305 45-117 U/L Normal ALK P 109 LAB L501.4405 16-61 U/L Normal ALT 59 LAB L501.4600 0.20-1.00 mg/dL T Normal BILI 0.70 LAB L501.5300 136-145 mmol/L NA Normal 138 LAB L501.5600 3.5-5.1 mmol/L K Normal 3.9 LAB L501.5900 98-107 mmol/L CL Normal 104 LAB L501.6100 21.0-32.0 mmol/L Normal CO2 27.0 LAB L501.6200 5-15 Normal GAP 7 Performed By: #### L500.4050, L500.4100, L503.6150, L503.6550 #### [facility] [address] [place], [place], [address] LIPID PROFILE Collected: 11/02/2017 Status: F Source: SORRENTO 8:25 AM [facility] REPOSITORY Order Comment: Reason for Laboratory Test OV DR ALEXANDER ORDERED VITD/LIPID/CMP DR GUNTER ORDERED CBCD/CMP/CRISTY/FE TYPE CODE TESTS RESULT OUT OF RANGE REFERENCE UNITS LAB L501.4900 200 mg/dL High CHOL 207 Result Comment: <200 mg/dL Desirable 200-240 mg/dL Borderline >240 mg/dL High Risk LAB L501.5000 mg/dL Normal TRIG 165 Result Comment: The drugs N-Acetylcysteine and Metamizole may falsely depress this assay. Serum Triglycerides Reference Interval Normal <150 mg/dL Borderline high 150 - 199 mg/dL High 200 - 499 mg/dL Very High > or = 500 mg/dL LAB L501.6400 mg/dL Normal HDL 44 Result Comment: The drugs N-Acetylcysteine and Metamizole may falsely depress this assay. Reference Range HDL <40 mg/dL Low HDL Cholesterol HDL >or= 60 mg/dL High HDL Cholesterol LAB L501.6500 0-130 mg/dL Normal LDL 130 LAB L501.6600 5-40 mg/dL Normal VLDL 33 Performed By: #### L500.4050, L500.4100, L503.6150, L503.6550 #### [facility] [address] [place], [place], [address] IRON Collected: 11/02/2017 Status: F Source: SORRENTO 8:25 AM [facility] REPOSITORY Order Comment: Reason for Laboratory Test OV DR ALEXANDER ORDERED VITD/LIPID/CMP DR GUNTER ORDERED CBCD/CMP/CRISTY/FE TYPE CODE TESTS RESULT OUT OF RANGE REFERENCE UNITS LAB L503.6150 65-175 ug/dL Normal IRON 120 Performed By: #### L500.4050, L500.4100, L503.6150, L503.6550 #### [facility] [address] [place], [address] FERRITIN Collected: 11/02/2017 Status: F Source: SORRENTO 8:25 AM [facility] REPOSITORY Order Comment: Reason for Laboratory Test OV DR ALEXANDER ORDERED VITD/LIPID/CMP DR GUNTER ORDERED CBCD/CMP/CRISTY/FE TYPE CODE TESTS RESULT OUT OF RANGE REFERENCE UNITS LAB L503.6550 26-388 ng/mL Normal FERRITIN 31 Performed By: #### L500.4050, L500.4100, L503.6150, L503.6550 #### [facility] [address] [place], [address] ALLERGIES ALLERGIES DATE TYPE / CODE NAME / CODE REACTION SEVERITY SOURCE 06/22/2018 Drug Penicillins/J87760 Hives SV Shruthi Allergy/416 0476(RXNORM) [facility] 734180([email or web address] ED CT) Repository 06/22/2018 Drug Puhqphy-Xxu-Aut Unknown Unknown [place] Allergy/416 Reductase [facility] 890836([facility] Inhibitor/[id number] [facility] ED CT) 95(RXNORM) Repository 06/22/2018 Drug nabumetone/[id number] Unknown Unknown [place] Allergy/416 622(RXNORM) [facility] 894400([email or web address] ED CT) Repository 06/22/2018 Drug ezetimibe/[id number] Pain in joints [place] Allergy/416 17(RXNORM) [facility] 967721([email or web address] ED CT) Repository Drug/228916 penicillins [place] 003([facility]) System Repository ENCOUNTERS ENCOUNTERS ADMIT/DISCHARGE ACCOUNT NUMBER ADMITTING ENCOUNTER LOCATION SOURCE CLASS 07/04/2018 [id number] Ambulatory [facility] ding:LABSPEC Repository 06/22/2018/06/22/20 [id number] Emergency [address] ding:ED Repository 06/19/2018 [id number] [place], Ambulatory [facility] ding:[facility] Repository 06/19/2018 [id number] Ambulatory [address] [place] [address] Repository 06/17/2018/06/17/20 [id number] Emergency [address] ding:ED Repository 06/16/2018 [id number] Ambulatory [facility] ding:LAB.FUT Repository URE 06/14/2018/06/15/20 [id number] [place], Inpatient [address] ding:EN3Grbo Repository : TK743Vsl: 1 06/08/2018 [id number] Ambulatory [facility] ding:BFHLAB Repository 05/29/2018 [id number] Ambulatory BMSBuilding: [place] [facility] Repository 05/10/2018 [id number] Ambulatory BMSBuilding: [place] BMS.CF.[facility] Repository 05/10/2018 [id number] Ambulatory [facility] ding:OMD Repository 03/15/2018 [id number] Ambulatory [facility] ding:BFHLAB Repository 11/02/2017 [id number] Ambulatory BMSBuilding: [place] BMS.CF.[facility] Repository 11/02/[id number] [facility] ding:MTLAB Repository PAYERS PAYERS ENCOUNTER GUARANTOR PAYER SUBSCRIBER SOURCE 07/04/2018 EDWIGE [id number] Primary EDWIGE Hawkins [address] Insurance:MEDICARE MOTZDOB: [place] BPolicy [id number] [facility] [address]Zcj: Number: Repository [id number] () Date:2018-07-04 07/04/2018 Secondary EDWIGE Hawkins Insurance:NEW ERA MOTZDOB: Community LIFE INSURANCE [id number] Hospital COMPANIPolicy Number: Repository [id number] Date:5601-31-45YP [address] [place] [address] 10757IJ: 07/04/2018 Tertiary NOT GIVENUNK Shruthi Insurance:SELF PAY [facility] Number: Effective Repository Date:2018-07-04 06/22/2018 EDWIGE E [id number] Primary EDWIGE E Shruthi [address] Insurance:MEDICARE MOTZDOB: Community [place] BPolicy [id number] Regional Medical Center 79416Koi: Number: Repository [id number] (HP) Date:2018-06-22 06/22/2018 Secondary EDWIGE E [place] Insurance:NEW ERA MOTZDOB: Community [employer] INSURANCE [id number] Hospital COMPANolicy Number: Repository [id number] Date:2692-86-54DX [address] [place] [address] 40014PI: 06/22/2018 Tertiary NOT GIVENUNK Shruthi Insurance:SELF PAY [facility] Hospital Number: Effective Repository Date:2018-06-22 06/19/2018 EDWIGE E Primary EDWIGE E [place] MOTZDOB: Insurance:MedicarePol MOTZDOB: [facility] icy Number: Effective [id number] System [facility] Date:2018-05-29 - [facility] [id number] [place], [place] Name:CD:[id number] [facility] [address]Ggz: [id number], [place] [address]Fzq: [id number]: (800) (HP) [phone] (HP) () 06/19/2018 Secondary EDWIGE E [place] Insurance:COMMERCIAL MOTZDOB: [facility] [id number] System Number: Effective [facility] Repository Date:2018-05-29 - [facility], 5030-23-03Kbqc [place] Name:CD:[id number] [place] [id number]: [address] [place] [address]HJ: (298) (HP) [phone] () 06/19/2018 EDWIGE MOTZDOB: Primary EDWIGE MOTQuentinDOB: [place] Insurance:MedicarePol [id number] icy Number: [facility] Repository [place], [id number] [place] [id number]: Date:Plan Name:[facility] [id number]: A (HP) (HP) 06/19/2018 Secondary EDWIGE MOTQuentinDOB: [place] Insurance:MedicarePol [id number] Hospitals icy Number: [facility] Repository [id number] [place], Date:Plan Name:[facility] [id number]: B () 06/19/2018 Tertiary EDWIGE MOTZDOB: [place] Insurance:CommercialP [id number] Hospitals olic Number: [facility] Repository [id number] [place], Date:Plan Name:[facility] [id number]: () 06/17/2018 EDWIGE Coral [id number] Primary EDWIGE E Shruthi [facility] Insurance:MEDICARE MOTZDOB: Community [place] BPolic [id number] Regional Medical Center [address]Fjx: Number: Repository [id number] (HP) Date:2018-06-17 06/17/2018 Secondary EDWIGE E Shruthi Insurance:NEW ERA MOTZDOB: Community [employer]UR[employer] [id number] Hospital COMPANolicy Number: Repository [id number] Date:2179-99-65FN [address] [place] [address] 08846OS: 06/17/2018 Tertiary NOT GIVENUNK Shruthi Insurance:SELF PAY [facility] Effective Repository Date:2018-06-17 06/16/2018 EDWIGE Moncada [id number] Primary EDWIGE E Shruthi [address] Insurance:MEDICARE MOTZDOB: Community [place] A [facility] [id number] Regional Medical Center [address]Tyd: Number: Repository [id number] (HP) Date:2018-06-16 06/16/2018 Secondary EDWIGE E Shruthi Insurance:NEW ERA MOTZDOB: Community [employer] [id number] Hospital COMPANolicy Number: Repository [id number] Date:0904-75-43PS [address] [place] [address] 65496YC: 06/16/2018 Tertiary NOT GIVENUNK Shruthi Insurance:SELF PAY [facility] Number: Effective Repository Date:2018-06-16 06/14/2018 EDWIGE Moncada [id number] Primary EDWIGE E Shruthi [address] Insurance:MEDICARE MOTZDOB: [facility] [id number] Regional Medical Center 383[address]Bhn: Number: Repository [id number] (HP) Date:2018-05-02 06/14/2018 Secondary EDWIGE E [place] Insurance:NEW ERA MOTZDOB: Community [employer] INSURANCE [id number] County Medical Centery Number: Repository [id number] Date:8144-55-56AE [address] [address]AI: 06/14/2018 Tertiary NOT GIVENUNK Shruthi Insurance:SELF PAY [facility] Number: Effective Repository Date:2018-05-02 06/08/2018 EDWIGE Moncada [id number] Primary EDWIGE E Shruthi [address] Insurance:MEDICARE MOTZDOB: Community [place] A [facility] [id number] Regional Medical Center 47[address]Pvc: Number: Repository [id number] (HP) e Date:2018-06-08 06/08/2018 Secondary NOT GIVENUNK [place] Insurance:SELF PAY [facility] Number: Effective Repository Date:2018-06-08 05/29/2018 EDWIGE E [id number] Primary EDWIGE E [place] [address] Insurance:MEDICARE MOTZDOB: Community [place] A [facility] [id number] Regional Medical Center [address]Tkp: Number: Repository [id number] (HP) Date:2018-05-02 05/29/2018 Secondary EDWIGE E Shruthi Insurance:NEW ERA MOTZDOB: Community [employer] [id number] Hospital COMPANIPolicy Number: Repository [id number] Date:5508-34-91FJ [address] [place] [address] 04660LD: 05/29/2018 Tertiary NOT GIVENUNK [place] Insurance:SELF PAY [facility] Number: Effective Repository Date:2018-05-29 05/10/2018 EDWIGE E [id number] Primary EDWIGE E [place] [address] Insurance:MEDICARE MOTZDOB: Community [place] A [facility] [id number] Regional Medical Center 57[address]Fbf: Number: Repository [id number] (HP) Date:2017-08-25 05/10/2018 Secondary EDWIGE E [place] Insurance:NEW ERA MOTZDOB: Community [employer]UR[employer] [id number] Health Allen Hospitalolicy Number: Repository [id number] Date:3908-19-92LS [address] [address]OG: 05/10/2018 Tertiary NOT GIVENUNK Shruthi Insurance:SELF PAY [facility] Number: Effective Repository Date:2018-05-10 05/10/2018 EDWIGE E [id number] Primary EDWIGE E Shruthi [address] [place] Insurance:MEDICARE MOTZDOB: Community [place] A [facility] [id number] Regional Medical Center 30216Xaq: Number: Repository [id number] (HP) Date:2017-08-25 05/10/2018 Secondary EDWIGE E Shruthi Insurance:NEW ERA MOTZDOB: Community [employer] [id number] Hospital COMPANolicy Number: Repository [id number] Date:9213-56-47OV [address] [place] [address] 26104LH: 05/10/2018 Tertiary NOT GIVENUNK Shruthi Insurance:SELF PAY [facility] Number: Effective Repository Date:2016-09-14 03/15/2018 EDWIGE E [id number] Primary EDWIGE E [place] [address] Insurance:MEDICARE MOTZDOB: Community [place] A [facility] [id number] Regional Medical Center 27643Igg: Number: Repository [id number] (HP) Date:2018-03-15 03/15/2018 Secondary EDWIGE E [place] Insurance:NEW ERA MOTZDOB: Community [employer]URANCE [id number] County Medical Centery Number: Repository [id number] Date:8177-62-72LO [address] [place] [address] 35640TE: 03/15/2018 Tertiary NOT GIVENUNK [place] Insurance:SELF PAY [facility] Number: Effective Repository Date:2018-03-15 11/02/2017 EDWIGE E [id number] Primary EDWIGE E [place] [address] Insurance:MEDICARE MOTZDOB: Community [place] A [facility] [id number] Regional Medical Center 05240Tze: Number: Repository [id number] (HP) Date:2017-08-25 11/02/2017 Secondary EDWIGE E Shruthi Insurance:NEW ERA MOTZDOB: Community [employer] [id number] Hospital COMPANolicy Number: Repository [id number] Date:1249-87-44LX [address] [place] [address] 733[address]CV: 11/02/2017 Tertiary NOT GIVENUNK [place] Insurance:SELF PAY [facility] Number: Effective Repository Date:2017-11-02 11/02/2017 EDWIGE E [id number] Primary EDWIGE E [place] [address] Insurance:MEDICARE MOTZDOB: Community [place] [address] [facility] [id number] Regional Medical Center 31844Zzx: Number: Repository [id number] (HP) Date:2017-11-02 11/02/2017 Secondary EDIWGE Hawkins Insurance:NEW ERA DAVONB: [facility] [id number] Number: Repository [id number] Date:0268-12-98JG [address] [place], [place] [address]WP: 11/02/2017 Tertiary NOT GIVENDENA Hawkins Insurance[facility] [place]: Effective Repository Date:2017-11-02
== END ==
PROVIDERS: Family Provider Family Medicine; PCP Family Medicine; Visit Provider Family Medicine
DX: Z12.5 Encounter for screening for malignant neoplasm of prostate (principal)
CPT/HCPCS: 36415; 84153; G0103

== ENCOUNTER 2018-06-14 08:03 | Inpatient (IN) | payer MEDICARE, OTHER, SELFPAY ==
[2018-05-29 14:30] VITALS: BP 144/78; PULSE 64; RESP 16; TEMP 37.2; O2SAT 93; BMI 38.9
--- NOTE | 2018-05-29 15:15 | SDCEKG_ITS ---
Test Reason : Blood Pressure : / mmHG Vent. Rate : 060 BPM Atrial Rate : 060 BPM P-R Int : 162 ms QRS Dur : 076 ms QT Int : 400 ms P-R-T Axes : 047 058 038 degrees QTc Int : 400 ms Normal sinus rhythm Normal ECG Confirmed by LORI FREEMAN, GOYO ([id number]), sound editor BLADE DELATORRE ([id number]) on 05/30/2018 3:28:03 PM Referred By: Dae Peoples Confirmed By:GOYO SANDOVAL MD
[2018-05-29 16:25] LABS: Absolute Lymphocyte Count 2.06 X10^3/ul (0.83-4.51); Absolute Neutrophil Count 5.8 X10^3/uL (2.0-7.7); Basophil# 0.02 X10^3/uL; Basophil% 0.2 % (0-1); Eosinophil# 0.15 X10^3/uL; Eosinophils% 1.7 % (0-5); Hemoglobin 16.7 g/dl (13.0-16.5); Lymphocyte # 2.06 X10^3/ul (4.0); Lymphocyte % 23.3 % (19-41); Mean Corp Hgb Conc 35.5 g/gl (32-36); Mean Corpuscular Hgb 32.4 pg (27.0-32.0); Mean Corpuscular Volume 91.1 fL (80-94); Neutrophil # 5.79 X10^3/uL (2.7-7.7); Neutrophil % 65.5 % (47-70); Platelet Count 182 K/mm3 (150-450); RBC Distribution Width CV 13.5 % (11.6-14.6); RBC Distribution Width SD 44.4 fl (35.1-43.9); Red Blood Count 5.16 M/mm3 (4.6-6.2); White Blood Count 8.9 K/mm3 (4.4-11.0)
[2018-05-29 16:29] LABS: POSITIVE COUNT NO; POSITIVE DIFFERENTIAL NO; POSITIVE MORPHOLOGY NO
[2018-05-29 16:56] LABS: BUN 23 mg/dL (7-18); Creatinine, Serum 0.92 mg/dL (0.70-1.30); Glucose 119 mg/dL (74-106)
[2018-05-29 16:57] LABS: Anion Gap 10 (5-15); BUN/Creat Ratio 24.9 RATIO (10-20); Calcium,Total 9.3 mg/dL (8.5-10.1); Chloride 102 mmol/L (98-107); EST Glomerular Filtration Rate 87 mL/min (>60); Est Glom Filt Rate - Afr Amer 106 mL/min (>60); Estimated Creatinine Clearance 90.47 ml/min; Potassium 3.8 mmol/L (3.5-5.1); Sodium Level 137 mmol/L (136-145)
--- NOTE | 2018-05-30 21:58 | PCM.HP.BLA ---
History and Physical DATE OF SURGERY: 06/14/2018 SCHEDULED PROCEDURE: Right Total Hip Arthroplasty HISTORY OF PRESENT ILLNESS: This is a 67-year-old male who is been having ongoing pain in his right hip since November 2017. Patient states his hip pain has been progressively getting worse. Pain is intermittent, aching, sharp, stabbing. She has increased pain standing. He has increased pain with walking. Patient does complain of startup pain. Pain is located over the lateral hip and radiates into the groin. He has difficult time with activities of daily living including getting dressed putting on socks as well as leisure activities such as walking. Pain does waken him at night. Patient has tried conservative measures consisting of rest, ice, elevation with minimal relief. Patient had an intra-articular right hip injection with only temporary relief. He states the injection gave him approximately 1 day of relief. He has been through physical therapy with no relief in symptoms. He has also been to the chiropractor with no relief in symptoms. Patient denies previous surgery on the right hip. Patient denies any chest pain, shortness of breath, fevers chills, or recent infections. Patient has a medical history pertinent for hypertension, M?ni?re's disease, hemachromatosis. We are obtaining surgical clearance from his primary care physician. Patient does see Dr. Kang for his hemachromatosis. REVIEW OF SYSTEMS: ROS: Const: Reports hard of hearing, denies anorexia, anxiety, change in appetite, fever and weight change and vision problems. CV: Denies chest pain, heart murmur, irregular heartbeat and peripheral vascular disease. Resp: Reports sleep apnea (mild), but denies asthma, cough, pneumonia, SOB, tuberculosis and wheezing GI: Denies constipation, diarrhea, heartburn, nausea, bloody stools and vomiting, and difficulty swallowing. : Denies incontinence. Musculo: Denies leg swelling, trouble walking and weakness and limp. Skin: Denies Raynaud's, history of shingles and tattoo. Neuro: Denies ambulatory dysfunction, dizziness, numbness/tingling and tremor. Psych: Denies anxiety, depression, insomnia, mental illness and stress. Dwight/Lymph: Denies anemia, bleeding/bruising tendency and past transfusion. Reviewed, no changes. PAST MEDICAL HISTORY: Advance Care Plan: Other Directive, LIVING WILL Effective Date: 01/17/2018 PMH: Medical Problems: Arthritis, High Blood Pressure, Psoriasis, Mineres, Hemacromotosis Accidents: Fracture - Ankle Surgical Hx: Appendectomy - [place] Colon Resection - (1999) [facility]i Hernia Repair - [place] Arthroscopy - (09/07/2006) R KNEE [facility] Back Fusion And L4 Removed - Vasectomy Hemilaminotomy Revision, Neuroforaminotomy - (03/17/2011) CAR @ [facility] Anesthesia Complications: None Assistive Devices: Dentures, Glasses, Hearing Aid Reviewed and updated. 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 Personal Habits: Smoking: Patient is a former smoker.Cigarette Use: Former - 1 pk/day for 15 yrs .Alcohol: Occasionally.Drug Use: Denies Use.Enjoy Exercising: Daily. Reviewed and updated. VITALS: Ht: 73.5 Wt: 299lb Wt k.626 BMI: 38.9 BP: 142/87 Pulse: 65 Resp: 20 T: 97.9 T: 36.6C ALLERGIES: Penicillin Relafen MEDICATIONS: Meloxicam 15 mg 1 by mouth every day, Vitamin D 5000 Unit 1po qday, Sertraline HCL 100 mg 1po qday, Losartan Potassium/Hydrochlorothiazide 50-12.5 mg 1 tab PO daily PRE-OP EXAM: General appearance:NORMAL Other: Eyes: Conjunctivae and lids: NORMAL Pupils: ERR Ears, Nose, Mouth, and Throat: NORMAL Other: Inspection of lips, teeth and gums: NORMAL Other: Neck: Examination of neck: no masses noted. Respiratory: Assessment of respiratory effort: NORMAL Other: Auscultation of lungs: clear to auscultation no wheezes, rhonchi or rales. Cardiovascular: Auscultation of heart: regular rate and rhythm, no murmurs, gallops or rubs. Exam of carotid arteries: NORMAL Other: Gastrointestinal: Exam of abdomen: soft, nontender, nondistended bowel sounds present. PHYSICAL EXAMINATION: Patient does walk with an antalgic gait. Patient has tenderness to palpation over the right greater trochanter. Range of motion right hip: Forward flexion 80, internal rotation neutral, external rotation 20. Pain is increased with range of motion. Patient has pain and weakness with single-leg stance on the right. Sensation intact to light touch. Neurovascularly intact. IMAGING STUDIES: X-rays of the right hip reveal joint space narrowing, subchondral sclerosis, osteophyte formation consistent with moderate to severe osteoarthritis. MRI of the right hip showed degenerative tearing of the labrum with articular cartilage thinning and subchondral cysts in the femoral head and acetabulum. This is consistent with severe arthrosis of the hip. Lumbar MRI reveals significant L5-S1 left sided foraminal stenosis and degenerative changes in lumbar spine. IMPRESSION: 1. Severe right hip osteoarthritis 2. Lumbar degenerative disc disease 3. Hypertension 4. M?ni?re's disease 5. Hemochromatosis PLAN: Dr. Dae Peoples did discuss and review with the patient all treatment options including surgical versus nonsurgical options. Patient does wish to proceed with the above-stated procedure. Potential risks, benefits, and complications of the procedure were discussed in detail including but not limited to , infection, nerve and blood vessel damage, persistent pain, numbness, tingling, paresthesias, blood clot, pulmonary embolism, and requirement for possible further surgery. The patient expressed full understanding and has no further questions for the doctor. Patient does agree to proceed with the above-stated procedure and has signed the surgery consent form. This dictation was created using voice recognition software. Phonetic and/or grammatical errors may exist.. ___ I have re-examined the patient. There are no clinical changes since date of exam. ___ See progress notes for changes. ___ Dictated on admission Date: Time: Signature:
--- NOTE | 2018-06-06 13:55 | CASEMGMT ---
Call placed to patient to discuss discharge needs after upcoming surgery. Patient unsure if he wants to go straight home after surgery, is possibly interested in an inpatient unit for therapy. Patient concerned that since I'm a big cricket will not be able to assist with care post-op at home. Currently patient has outpatient physical therapy set up on 06/19/18 at 1430 at [facility], near patients home. will assist with transportation to/from therapy. Patient has a walker, grab bars in bathroom, high toilet. Does not have a shower seat. There is a bed/bathroom on 1st level of home and 2 steps into home. Informed patient that RN-CM will follow up with him and regarding discharge planning after surgery. Marilynn Bates LPN Clinical Support
[2018-06-08 11:44] VITALS: BMI 38.0
[2018-06-14] VITALS (11 sets, daily range): BP systolic 107–159; BP diastolic 61–91; PULSE 59–73; RESP 12–18; TEMP 36.2–37.2; O2SAT 91–96; BMI 38.9
--- NOTE | 2018-06-14 07:13 | RAD_ITS ---
STUDY: X-RAY - RIGHT HIP REASON FOR EXAM: Male, 67 years old. Right hip replacement. TECHNIQUE: 2 views of the hip. COMPARISON: None. FINDINGS: The patient is status post right total hip replacement. There is good alignment. RAD/Hip Min 2 Views (Portable) IMPRESSION: Status post right total hip replacement. Electronically Signed: Devan Ny MD at 14:24 EST Tel [phone], Service support ,
[2018-06-14] MEDS: Celecoxib 200 MG Capsule 400 MG PO (08:54)
[2018-06-14] MEDS: Acetaminophen 500 MG Tablet 1000 MG PO ×3 (08:55→22:00)
--- NOTE | 2018-06-14 10:15 | RAD_ITS ---
STUDY: X-RAY - RIGHT HIP REASON FOR EXAM: Male, 67 years old. Anterior thalamic replacement. TECHNIQUE: 2 coned-down intraoperative views of the hip. COMPARISON: None. FINDINGS: Intraoperative fluoroscopic imaging was provided for right hip replacement. RAD/Hip 1 view with Pelvis IMPRESSION: Intraoperative imaging provided for right hip replacement. There is good alignment. Electronically Signed: Devan Ny MD at 12:58 EST Tel [phone], Service support ,
--- NOTE | 2018-06-14 10:22 | PCM.OPRPT ---
Report of Operation Date of Procedure: 06/14/18 Pre-Operative Diagnosis: Right hip osteoarthritis Post-Operative Diagnosis: Right hip osteoarthritis Surgery/Procedure Performed:: Right direct anterior total hip replacement Description of Surgical Findings:: stable hip with equal leg lengths emergency department manager: Shabnam Santillan Type of Anesthesia:: Spinal Anesthesiologist: Isma Paredes Special Medications: Cleocin 600 mg, 1 g TXA at incision, 1 g TXA closure, 10 mg Decadron, joint cocktail (5 mg Duramorph, 30 mL of 0.5% Ropivicaine, 1000 units of epinephrine, 30 mg of Toradol) Specimen's removed: Bony cuts Estimated Blood Loss (mL): 350 Fluids Replaced: 1 liter crystalloid Description of Procedure: Components used: 1. Accolade 2 Vincent femoral stem size 7 127? 2. Vincent trident acetabular shell size 62 mm 3. [place] X3 polyethylene g 4. [place] Biolox delta 36mm, 0mm femoral head Brief history operative indications: 67 yo M who failed conservative measures for their hip osteoarthritis. X-rays were consistent with osteoarthritis including joint space narrowing, osteophyte formation and subchondral cysts. Total hip replacement was discussed with the patient with risks and benefits including but not limited to blood loss, DVTs, PEs, neurovascular damage, dislocation, general risks of anesthesia including loss of life. Patient demonstrated an understanding medical clearance is obtained the patient was consented for surgery. Procedure: On the date of procedure the patient's R hip was marked in the preoperative area. Patient was then taken back to the operating room where anesthesia assumed control of the C-spine and airway and administered anesthetic. Patient was transferred to the operating table and placed in the supine position. The hips were placed at the break of the bed and a sacral bump was placed. The R lower extremity was then prepped out in a sterile fashion using chlorhexidine while the surgeon scrubbed. The PA was vital in the positioning of the patient. Upon reentering the room the R lower extremity was draped in the standard orthopedic fashion and the incision was marked. A timeout was called and everyone agreed upon the side, the site, the procedure be performed, antibody given, and patient's identity. At this time incision was made through skin, subcutaneous tissue, and fat down to fascia. The fascia was then incised and the TFL was retracted laterally. A retractor was placed on the lateral border of the femoral neck. Attention was directed to the inferior portion of the approach and all crossing vessels were identified and appropriately coagulated. A retractor was then placed on the medial portion of the femoral neck. The anterior capsule was then cleared of all soft tissue and then H shaped capsulotomy was made. The retractors were then placed inside the capsule. The femoral neck was identified and a cleanup cut was made. At this time a power corkscrew was used to remove the femoral head. Attention was then turned toward the acetabulum where the soft tissues were appropriately retracted and the acetabulum was sequentially reamed to 62 mm. A 62 mm cup was then selected and impacted into place. Acetabular liner was impacted into place and locking mechanism was verified. The position of the acetabular cup was then verified under live fluoroscopy. Attention was then turned to the femur. Soft tissue releases on the medial and lateral femoral neck were appropriately done, the leg was externally rotated and lateralized. A Lott retractor was placed medially and proximally to the greater trochanter this allowed appropriate visualization and exposure of the femoral canal. Rongeour was then used to remove excess lateral bone. A canal finder and entry broach were used to open the proximal canal. Once we verified we were down the femoral canal we subsequently broached up to a size 7 femur. The appropriate neck was placed in the previously selected head was trialed with a 0 mm neck. Traction was pulled and the hip was reduced with internal rotation. Once it was appropriately reduced and stability was checked. There was minimal shuck, equal leg lengths and appropriate stability with hyperextension and external rotation as well as with 90? flexion and internal rotation. Fluoroscopy was then also used to verify the position of the components and leg lengths using the contralateral side for comparison. The trial components were then dislocated the proximal femur was again exposed and the components were removed from the wound. The final components were verified and opened. The wound was copiously irrigated out with normal saline. The acetabulum was checked for any residual debris. The final components were placed and impacted. Traction and internal rotation were again used to reduce the hip. After adequate reduction the hip remained stable with appropriate leg lengths. The final components were once again checked with live fluoroscopy and were found to be satisfactory. The wound was then copiously irrigated with normal saline once more, and hemostasis was obtained. Closure was then done using #1 Vicryl runner to close the fascia. A 2-0 vicryl interuppted sutures were used to close the subcutaneous skin. A 3-0 Monocryl and Steri-Strips were used for final skin closure. A Silverlon dressing was placed. Patient was awakened by anesthesia and transferred to the [facility]. Patient was then transferred to the PACU for recovery. Postoperative plan: Patient will get 24 hours postop antibiotics. Patient will get in-house physical therapy and will be weight-bear as tolerated. Patient will follow up in office in 2 weeks for a wound check and x-rays. Grafts/Implants Used: Accolade 2, Trident 2 - Complications none - Admit VTE Documentation VTE Present on Admission: No VTE Mechan Device Prophylaxis: SCD's, Thigh High ABHAY Hose VTE Pharm Prophylaxis ordered?: Yes
[2018-06-14] MEDS: Lactated Ringers 1,000 ML 999 ML IV (12:58)
[2018-06-14] MEDS: Scopolamine 1mg/72hr Patch 1 PATCH TD (13:02)
[2018-06-14] MEDS: Lactated Ringers 1,000 ML 125 ML IV ×2 (13:40→22:01)
[2018-06-14] MEDS: Senna/Docusate Sodium 1 Tablet 2 TABLET PO ×2 (15:01→22:01)
[2018-06-14] MEDS: Sertraline 100 MG Tablet PO (15:01)
[2018-06-14] MEDS: Famotidine 20 MG Tablet PO (15:02)
[2018-06-14] MEDS: Aspirin 81 MG TAB.CHEW PO (16:16)
--- NOTE | 2018-06-14 18:20 | NURSING ---
pt requested that scopoline patch be removed, mouth very dry. patch removed and disgarded as per protocol.
[2018-06-14] MEDS: oxyCODONE 5 MG Tablet PO (19:43)
[2018-06-14] MEDS: BENZOCAINE/MENTHOL 1 LOZENGE MUCOUS MEM (22:02)
[2018-06-15 02:00] VITALS: BP 129/85; PULSE 57; RESP 16; TEMP 36.4; O2SAT 95
[2018-06-15] MEDS: Acetaminophen 500 MG Tablet 1000 MG PO ×2 (05:52→13:02)
[2018-06-15 06:04] LABS: Hematocrit 37.1 % (40-54); Hemoglobin 13.1 g/dl (13.0-16.5); Mean Corp Hgb Conc 35.3 g/gl (32-36); Mean Corpuscular Hgb 32.8 pg (27.0-32.0); Mean Corpuscular Volume 92.8 fL (80-94); Mean Platelet Vol. 10.4 fl (6.2-12.0); Platelet Count 146 K/mm3 (150-450); RBC Distribution Width CV 12.9 % (11.6-14.6)
[2018-06-15 06:22] LABS: Scan Indicated on CBC? Y/N NO
[2018-06-15 06:30] LABS: Anion Gap 7 (5-15); BUN 18 mg/dL (7-18); Calcium,Total 8.6 mg/dL (8.5-10.1); Chloride 102 mmol/L (98-107); Creatinine, Serum 1.06 mg/dL (0.70-1.30); EST Glomerular Filtration Rate 74 mL/min (>60); Est Glom Filt Rate - Afr Amer 90 mL/min (>60); Estimated Creatinine Clearance 78.52 ml/min; Glucose 130 mg/dL (74-106); Potassium 3.9 mmol/L (3.5-5.1); Sodium Level 137 mmol/L (136-145)
--- NOTE | 2018-06-15 08:32 | PN.ORTHO_ITS ---
Subjective: The patient was sitting in bedside chair upon examination. Patient denies any chest pain, shortness of breath, dizziness, lightheadedness, nausea or vomiting, or calf pain. Pain is controlled on medications. No adverse overnight events. Patient does complain of soreness in the anterior thigh region. Overall he states he is doing well. He has been up walking in the room. He has not had physical therapy. Objective: Vital signs stable and afebrile. Patient is able to plantarflex and dorsiflex actively. Sensation is intact to light touch to saphenous, sural, superficial and deep peroneal, and tibial distribution. Dressing is intact with mild drainage over the distal one third not touching any border Negative Homans bilaterally, negative signs and symptoms of DVT. - Physical Exam General: Alert, Oriented x3, Cooperative, No apparent distress Vital Signs Temp Pulse Resp BP Pulse Ox 97.5 F L 57 L 16 129/85 H 95 06/15/18 02:00 06/15/18 02:00 06/15/18 02:00 06/15/18 02:00 06/15/18 02:00 Oxygen Delivery Method Bi-pap Weight: 135.624 kg Body Mass Index (BMI) 38.9 Intake and Output for Last 24 Hours 06/13/18 06/14/18 06/15/18 23:59 23:59 23:59 Intake Total 3954 / 3954 1437 / 1437 Output Total 1650 / 1650 Balance 3954 / 3954 -213 / -213 Laboratory Tests Past 24 Hrs 06/15/18 06/15/18 05:54 05:54 WBC 10.0 RBC 4.00 L Hgb 13.1 Hct 37.1 L MCV 92.8 MCH 32.8 H MCHC 35.3 RDW 12.9 RDW Differential 43.0 Plt Count 146 L MPV 10.4 Sodium 137 Potassium 3.9 Chloride 102 Carbon Dioxide 28.0 Anion Gap 7 BUN 18 Creatinine 1.06 Estim Creat Clear Calc 78.52 Est GFR (MDRD) Af Amer 90 Est GFR (MDRD) Non-Af 74 BUN/Creatinine Ratio 17.0 Glucose 130 H Calcium 8.6 Medical Necessity - Tobacco Use Smoking Status: Unknown if ever smoked Assessment/Plan 1. S/P direct anterior right total hip arthroplasty POD #1 2. Continue Pain Medications: Tylenol and OxyIR 3. DVT Prophylaxis: Aspirin 81 mg twice daily with food for 4 weeks postoperatively 4. PT/OT: Weightbearing as tolerated 5. H & H: 13.1/37.1, asymptomatic 6. Encouraged Incentive Spirometry 7. Disposition: Plan will be for possible discharge home this afternoon/evening if patient tolerates physical therapy and pain is controlled. Prescriptions wi ll be attached to chart. Patient will follow-up per postop instructions.
--- NOTE | 2018-06-15 08:36 | DCINST_ITS ---
Discharge Diet: No Restrictions Discharge Activity: May Not Drive - while taking narcotic pain medications. May shower in (days): 1 - Turned dressing away from water Ice area for (Minutes): 20 - Every 1-2 hours while awake Weight Bearing Status: Weight bearing as tolerated Elevate: Operative Extremity Additional Activity Instructions:: Wear elastic stockings for 2 weeks. DO NOT use alcohol with narcotic pain medication. DO NOT make important decisions while taking narcotic medication. If you have problems with taking your medication (rash, itching, nausea, etc.) call the office at once. Call your doctor if your incision/area has: Increased Pain/ Swelling, Increased Redness, Foul Smelling Discharge Call your doctor if you observe: Fever of 101 or Higher Remove Dressing in (days):: 4 - Okay to remove dressing on June 19, 2018 Additional Instructions: Follow Shruthi orthopedic postop instructions Allergies/Adverse Reactions: Allergies Penicillins [PCN] Allergy (Severe, Verified 05/29/18 14:27) Hives nabumetone [From Relafen] Allergy (Verified 05/29/18 14:27) Unknown ezetimibe [From Zetia] Adverse Reaction (Intermediate, Verified 05/10/18 12:11) Pain in joints Yynvnpi-Uqb-Zbx Reductase Inhibitor Adverse Reaction (Verified 05/10/18 12:11) Unknown Medications to take at Discharge Sertraline HCl [Zoloft] 100 mg PO DAILY 05/31/13 Multivit-Min/FA/Lycopene/Lut [Centrum Silver Tablet] 1 each PO DAILY 05/22/14 Losartan/Hydrochlorothiazide [Losartan-Hctz 50-12.5 mg Tab] 1 tab PO DAILY 05/10/18 Cholecalciferol (Vitamin D3) [Vitamin D3] 5,000 unit PO DAILY 05/29/18 Acetaminophen [Tylenol] 1,000 mg PO Q8 #90 tab 06/15/18 Aspirin [Aspirin, Baby] 81 mg PO BIDCM #60 tab.chew 06/15/18 Famotidine [Pepcid] 20 mg PO DAILY #30 tab 06/15/18 Meloxicam [Mobic] 7.5 mg PO BID tablet 06/15/18 Oxycodone [Oxyir] 5 - 10 mg PO Q4H PRN PRN 5 Days #60 tab 06/15/18 Senna/Docusate Sodium [Senokot-S] 2 tab PO BID #20 tab 06/15/18 The following prescriptions were given: Oxycodone [Oxyir] 5 - 10 mg PO Q4H PRN PRN 5 Days #60 tab PRN Reason: Mod-Severe Pain (-04/05) Acetaminophen [Tylenol] 1,000 mg PO Q8 #90 tab Famotidine [Pepcid] 20 mg PO DAILY #30 tab Aspirin [Aspirin, Baby] 81 mg PO BIDCM #60 tab.chew Senna/Docusate Sodium [Senokot-S] 2 tab PO BID #20 tab Primary Care Physician: Tres Alexander DO [Primary Care Provider] - Test Results: Test results from this visit will be discussed in further detail at your follow- up appointment, if applicable. Please Follow Up With: Physical Therapy @ [facility] When: 06/19/18 @ 2:30 pm Please Follow Up With: Ronny Dupree PA-C When: 06/28/18 @ 10:30 am
[2018-06-15 08:37] VITALS: BP 134/64; PULSE 62; RESP 18; TEMP 36.6; O2SAT 99
[2018-06-15] MEDS: hydroCHLOROthiazide 12.5mg 12.5 MG PO (08:43)
[2018-06-15] MEDS: Senna/Docusate Sodium 1 Tablet 2 TABLET PO (08:43)
[2018-06-15] MEDS: Aspirin 81 MG TAB.CHEW PO (08:43)
[2018-06-15] MEDS: Losartan Potassium 50 MG Tablet PO (08:43)
[2018-06-15] MEDS: Famotidine 20 MG Tablet PO (08:43)
[2018-06-15] MEDS: Meloxicam 7.5 MG Tablet PO (08:43)
[2018-06-15] MEDS: Sertraline 100 MG Tablet PO (08:43)
[2018-06-15] MEDS: oxyCODONE 5 MG Tablet PO ×2 (08:51→13:02)
--- NOTE | 2018-06-15 11:50 | CASEMGMT ---
CLYDE VASQUEZ Face to Face with patient for initial transition planning/care coordination assessment. RN CM introduced self and role at [facility]. Patient lying in bed, alert and oriented. Patient willing to participate in assessment and is able to answer all questions appropriately. Care providers, pharmacy, and demographics verified. Patient wishes to discharge home and is setup with outpatient therapy at [facility] in [place] with providing transportation. Patient has high toilet, walker, and grab bars at home. Patient states he has no further needs or concerns at this time. CM to follow for discharge planning needs that may arise. Disposition Plan: Patient to discharge home with outpatient therapy, family support, and follow-up plans in place. Margoth ERICKSON, RN, CM
[2018-06-15 13:45] VITALS: BP 125/63; PULSE 60; RESP 18; TEMP 36.3; O2SAT 96
--- OUTSIDE RECORDS SUMMARY | 2018-09-15 08:33 | XMS RPT_ITS ---
:1950 Author Organization OHIP Support Name Relationship Address Phone [facility] Unavailable [address] + [place] [address] TIMOTEO, CHELSEA Unavailable [address] + [place] [address] COLIN ACHARYA Unavailable Unavailable + [facility] Unavailable [address] + [place] [address] TIMOTEO, CHELSEA Unavailable [address] [facility] + [place] [address] COLIN ACHARYA Unavailable Unavailable + [facility] Unavailable Unavailable + [facility] Unavailable [address] + [place] [address] TIMOTEO, CHELSEA Unavailable [address] [facility] [address] + [place] [address] COLIN ACHARYA Unavailable Unavailable + [facility] Unavailable [address] + [place] [address] TIMOTEO, CHELSEA Unavailable [address] [facility] [address] + [place] [address] COLIN ACHARYA Unavailable Unavailable + [facility] Unavailable [address] + [place] [address] TIMOTEO CHELSEA Unavailable [address] + [place] [address] COLIN ACHARYA Unavailable Unavailable + [facility] Unavailable [address] + [place] [address] TIMOTEO, CHELSEA Unavailable [address] + [place] [address] COLIN ACHARYA Unavailable Unavailable + [facility] [address] + [place] [address] TIMOTEO, CHELSEA Unavailable [address] + [place] [address] COLIN ACHARYA Unavailable Unavailable + [facility] Unavailable [address] + [place] [address] TIMOTEO, CHELSEA Unavailable [address] + [place] [address] COLIN ACHARYA Unavailable Unavailable + [facility] Unavailable [address] + [place] [address] TIMOTEO, CHELSEA Unavailable [address] + [place] [address] COLIN ACHARYA Unavailable Unavailable + [facility] [address] + [place] [address] TIMOTEO, CHELSEA Unavailable [address] + [place] [address] COLIN ACHARYA Unavailable Unavailable + [facility] Unavailable [address] + [place] [address] TIMOTEO, CHELSEA Unavailable [address] + [place] [address] COLIN ACHARYA Unavailable Unavailable [phone] [facility] [address] + [place] [address] TIMOTEO, CHELSEA Unavailable [address] + [place] [address] COLIN ACHARYA Unavailable Unavailable [phone] Care Team Providers Name Role Phone Rober Sandoval Attending Unavailable Dae Peoples Referring Unavailable BenjaminTres howe Attending Unavailable Benjamin, Tres Primary Care Unavailable Benjamin, Tres Attending Unavailable Benjamin, Tres Primary Care Unavailable Benjamin, Tres Primary Care Unavailable Bayron Ling Attending Unavailable Benjamin, Tres Primary Care Unavailable Emily Ward Attending Unavailable Flores Beatty Attending Unavailable Rogerio, Flores Huitron Referring Unavailable Benjamin, Tres Primary Care Unavailable Mars, Gabriela Attending Unavailable Benjamin, Tres Primary Care Unavailable Benjamin, Tres Referring Unavailable Benjamin, Tres Attending Unavailable BenjaminLeandro Referring Unavailable Benjamin, Tres Primary Care Unavailable Praanay, Roque Consulting Unavailable Praanay, Roque Attending Unavailable Benjamin, Tres Referring Unavailable Benjamin, Tres Primary Care Unavailable Mars, Gabriela Consulting Unavailable Carl Alcantar Attending Unavailable Benjamin, Tres Primary Care Unavailable Praanay, Roque Attending Unavailable Benjamin, Tres Referring Unavailable Benjamin, Tres Primary Care Unavailable Mars, Gabriela Consulting Unavailable Dae Peoples Admitting Unavailable Dae Peoples Attending Unavailable Dae Peoples Referring Unavailable Benjamin, Tres Primary Care Unavailable Arnold Escobedo Primary Care Unavailable Alonzo Dupree Attending Unavailable Alonzo Dupree Admitting Unavailable PROBLEMS PROBLEMS DATE TYPE CONDITION / CODE ATTENDING STATUS SOURCE 06/16/2018 Unknown R30.0 - Dysuria / Tres Alexander Active [facility] R30.0(ICD-10) [facility] Repository 06/15/2018 Unknown Z96.641 - Presence of Dae Peoples Active [facility] right artificial hip [facility] joint / Hospital Z96.641(ICD-10) Repository 06/08/2018 Unknown Z12.5 - Encounter for Tres Alexander Active [facility] screening for [facility] malignant neoplasm of Hospital prostate / Repository Z12.5(ICD-10) 06/05/2018 Unknown Z01.810 - Encounter Rober Sandoval Active [facility] for preprocedural [facility] cardiovascular Hospital examination / Repository Z01.810(ICD-10) 05/10/2018 Unknown E83.119 - Roque Gunter Active [facility] Hemochromatosis, Community unspecified / Hospital E83.119(ICD-10) Repository 05/10/2018 Unknown E83.118 - Other Mars, Gabriela Active [facility] hemochromatosis / Community E83.118(ICD-10) Hospital Repository 11/02/2017 Unknown R73.01 - Impaired Tres Alexander Active [facility] fasting glucose / Community R73.01(ICD-10) Hospital Repository 11/02/2017 Unknown I10 - Essential Tres Alexander Active [facility] (primary) [facility] hypertension / Hospital I10(ICD-10) Repository 11/02/2017 Unknown E55.9 - Vitamin D Tres Alexander Active [facility] deficiency, Community unspecified / Hospital E55.9(ICD-10) Repository PROCEDURES PROCEDURES No Procedure Records FoundRESULTS RESULTS Observed: 07/04/2018 Status: F Source: [place] CULTURE, URINE 3:30 PM [facility] Urine Culture ORGANISM 1: Enterococcus faecalis Brogan Count >100,000 Enterococcus faecalis: REACTION Ampicillin $ <=2 S Benzylpenicillin NF 0.5 S Ciprofloxacin $ <=0.5 S Gentamicin SYN-S S Levofloxacin $ 0.5 S Linezolid $$$$ 2 S Nitrofurantoin $ <=16 S Streptomycin $ SYN-R R Tetracycline NF >=16 R Vancomycin $ 1 S (NF) indicates non-formulary drug at [facility]. Approval by Infectious Disease Specialist required before non-formulary drugs may be ordered and/or dispensed. * CLSI guidelines does not recommend testing of cephalosporins. This interpretation is deduced from Beta-lactam/penicillin results. Performed By: #### M100.0650 #### [facility] [address] [place], [address] EMERGENCY DEPARTMENT Observed: 06/22/2018 Status: F Source: [place] SUMMARY 11:35 PM [facility] Medical Records Department [address] [place] [address] Emergency Department Summary 06/22/18 1802 MR#: [id number] Acct: [id number] Name: DEWIGE MAHMOOD Rep #: [id number] : 1950 67 From: Emily Ward MD [...] Urinary retention This note was generated with [facility] dictation software. It may contain incorrect words, [...] your Primary Care Provider. Call [facility] ([phone]) or report to the closest Emergency Room. Call 911 if necessary. 06/22/18 2197 <Electronically signed by Emily Ward MD> Date Emily Ward MD Cosigner Signature (If Indicated): Date CC: Tres Alexander DO DISCHARGE INSTRUCTION Observed: 06/22/2018 Status: F Source: [place] 6:06 PM [facility] Medical Records Department [address] [place] [address] Discharge Instruction 06/22/18 6115 MR#: [id number] Acct: [id number] Name: EDWIGE MAHMOOD Rep #: [id number] : 1950 67 From: Emily Ward MD [...] your Primary Care Provider. Call [facility] ([phone]) or report to the closest Emergency Room. Call 911 if necessary. 06/22/181805 <Electronically signed by Emily Ward MD> Date Emily Ward MD Cosigner Signature (If Indicated): Date CC: Tres Alexander DO EMERGENCY DEPARTMENT Observed: 06/19/2018 Status: F Source: [place] SUMMARY 7:03 AM [facility] Medical Records Department [address] [place] [address] Emergency Department Summary 06/17/18 0738 MR#: [id number] Acct: [id number] Name: EDWIGE MAHMOOD Rep #: [id number] : 1950 67 From: Bayron Ling DO [...] 2. Constipation This note was generated with [employer] software. It may contain incorrect words, spelling, [...] your Primary Care Provider. Call [facility] ([phone]) or report to the closest Emergency Room. Call 911 if necessary. 06/19/18 0703 <Electronically signed by Bayron Ling DO> Date Bayron Ling DO Cosigner Signature (If Indicated): Date CC: Tres Alexander DO URINALYSIS, COMPLETE Collected: 06/17/2018 Status: F Source: [place] 7:35 AM [facility] Order Comment: Order Date: 06/17/18 Has [...] URINE SEEN Performed By: #### L400.0001 #### [facility] [address] [place], [address] CBC W/DIFF, AUTOMATED Collected: 06/17/2018 Status: F Source: [place] 7:18 AM [facility] TYPE CODE TESTS RESULT OUT OF [...] Lymph 0.92 Performed By: #### L100.0100 #### [facility] [address] [place], [place], [address] BASIC METABOLIC Collected: 06/17/2018 Status: F Source: [place] PROFILE (BMP) 7:18 AM [facility] TYPE CODE TESTS RESULT OUT OF [...] GAP 11 Performed By: #### L500.2500 #### [facility] [address] [place], [place], [address] Observed: 06/16/2018 Status: F Source: [place] CULTURE, URINE 1:27 PM [facility] Urine Culture Culture exhibits no growth. Performed By: #### M100.0650 #### [facility] [address] [place], [address] DISCHARGE INSTRUCTION Observed: 06/15/2018 Status: F Source: [place] 8:36 AM [facility] Medical Records Department [address] [place] [address] Instructions for Home/Discharge Instructions 06/15/18 0835 MR#: [id number] Acct: [id number] Name: EDWIGE MAHMOOD Rep #: [id number] : 1950 67 From: Ronny Dupree PA-C [...] on June 19, 2018 Additional Instructions: Follow [facility] orthopedic postop instructions Allergies/Adverse Reactions: Allergies Penicillins [PCN] Allergy (Severe, Verified 05/29/18 14:27) Hives nabumetone [From Relafen] Allergy (Verified 05/29/18 14:27) Unknown ezetimibe [From Zetia] Adverse Reaction (Intermediate, Verified 05/10/18 12:11) Pain in joints Mogdstw-San-Kqg Reductase Inhibitor Adverse Reaction (Verified 05/10/18 12:11) [...] Please Follow Up With: Physical Therapy @ [facility] When: 06/19/18 @ 2:30 pm Please Follow Up With: Ronny Dupree PA-C When: 06/28/18 @ 10:30 am 06/15/18 0836 <Electronically signed by Ronny Dupree PA-C> Date Ronny Dupree PA-C CC: Tres Alexander DO CBC-COMPLETE BLOOD CNT Collected: 06/15/2018 Status: F Source: [place] NO DIFF 5:54 AM [facility] TYPE CODE TESTS RESULT OUT OF [...] MPV 10.4 Performed By: #### L100.0500 #### [facility] [place], [address] BASIC METABOLIC Collected: 06/15/2018 Status: F Source: [place] PROFILE (BMP) 5:54 AM [facility] TYPE CODE TESTS RESULT OUT OF [...] GAP 7 Performed By: #### L500.2500 #### [facility] [address] [place], [address] OPERATIVE REPORT Observed: 06/14/2018 Status: F Source: [place] 12:11 PM [facility] Medical Records Department [address] [place] [address] Operative Report 06/14/18 1022 MR#: [id number] Acct: [id number] Name: TIMOTEO,EDWIGE Moncada Rep #: [id number] : 1950 67 From: Dae Peoples MD PCP: Tres Alexander DO Status: ADM IN Y [facility] Operation Date of Procedure: 06/14/18 Pre-Operative Diagnosis: Right hip osteoarthritis Post-Operative Diagnosis: Right hip osteoarthritis Surgery/Procedure Performed:: Right direct anterior total hip replacement Description of Surgical Findings:: stable hip with equal leg lengths assistant printer floor covering: Shabnam Santillan Type of Anesthesia:: Spinal Anesthesiologist: [...] Vincent femoral stem size 7 127 2. Eola trident acetabular shell size 62 mm 3. [...] awakened by anesthesia and transferred [facility]. Patient was then transferred to the PACU [...] Status: F Source: [place] (PORTABLE) 7:17 AM [facility] Imaging Services [address] [place] [address] Hip Min 2 Views (Portable) MR#: [id number] Acct: [id number] Name: EDWIGE MAHMOOD Rep #: [id number] : 1950 M 67 From: Devan Ny MD PCP: Tres Alexander DO Status: ADM IN Study: Hip Min 2 Views (Portable) Date of Exam: 06/14/18 Exam# [id number] Ordering Dr: Dae Peoples MD STUDY: X-RAY - RIGHT HIP REASON FOR EXAM: Male, 67 years old. Right hip replacement. TECHNIQUE: 2 views of the hip. COMPARISON: None. FINDINGS: The patient is status post right total hip replacement. There is good alignment. RAD/Hip Min 2 Views (Portable) IMPRESSION: Status post right total hip replacement. Electronically Signed: Devan Ny MD at 14:24 EST Tel [phone], Service support , CC: Tres Alexander DO; Dae Peoples MD Drying Tunnel Operator: Signed HIP 1 VIEW WITH Observed: 06/14/2018 Status: F Source: [place] PELVIS 2:59 AM [facility] REPOSITORY [facility] Imaging Services [address] [place] [address] Hip 1 view with Pelvis MR#: [id number] Acct: [id number] Name: EDWIGE MAHMOOD [place] Rep #: [id number] : 1950 M 67 From: Devan Ny MD PCP: Tres Alexander DO Status: ADM IN Study: Hip 1 view with Pelvis Date of Exam: 06/14/18 Exam# [id number] Ordering Dr: Dae Peoples MD STUDY: X-RAY - RIGHT HIP REASON FOR EXAM: Male, 67 years old. Anterior thalamic replacement. TECHNIQUE: 2 coned-down intraoperative views of the hip. COMPARISON: None. FINDINGS: Intraoperative fluoroscopic imaging was provided for right hip replacement. RAD/Hip 1 view with Pelvis IMPRESSION: Intraoperative imaging provided for right hip replacement. There is good alignment. Electronically Signed: Devan Ny MD at 12:58 EST Tel [phone], Service support , CC: Tres Alexander DO; Dae Peoples MD Drying Tunnel Operator: Signed PSA,TOTAL - ANNUAL Collected: 06/08/2018 Status: F Source: [place] SCREEN 11:52 AM [facility] TYPE CODE TESTS RESULT OUT OF RANGE REFERENCE UNITS LAB L501.9910 0.00-4.00 ng/mL Normal PSA,TOT 2.19 SCREEN Result Comment: This test was performed using the TPSA assay method for the [employer] chemistry system. Values obtained with different assay methods cannot be used interchangably. When changing PSA assays in the course of monitoring a patient, additional sequential testing should be carried out to confirm baseline values. Performed By: #### L501.9910 #### [facility] [address] [place] [address]. [place], [address] HISTORY AND PHYSICAL Observed: 05/30/2018 Status: F Source: [place] EXAM 9:59 PM [facility] Medical Records Department [address] [address] History and Physical 05/30/18 2158 MR#: [id number] Acct: [id number] Name: EDWIGE MAHMOOD Rep #: [id number] : 1950 67 From: Ronny Dupree PA-C PCP: Benjamin MENDOZATres Status: PRE IN Y Location: [facility] History and Physical DATE OF SURGERY: 06/14/2018 [...] Resection - (1999) [facility] Hernia Repair - Dixon Arthroscopy - (09/07/2006) R KNEE [facility] MSK Back Fusion And L4 Removed - Vasectomy Hemilaminotomy Revision, Neuroforaminotomy - (03/17/2011) CAR @ [facility] Anesthesia Complications: None Assistive Devices: Dentures, Glasses, Hearing Aid Reviewed and updated. 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 Personal [...] Dictated on admission Date: Time: Signature: 05/30/18 2869 <Electronically signed by Ronny Eshenaur PA-C> Date Ronny Dupree PA-C Cosigner Signature: Date (if applicable) CC: Tres Alexander DO; Ronny PRIETO Signed 12 LEAD ELECTROCARDIOGRAM Observed: 05/30/2018 Status: F Source: [place] 3:28 PM [facility] Cardiovascular Services [address] [place] [address] EKG - [facility] 05/29/18 1509 MR#: [id number] Acct: [id number] Name: EDWIGE MAHMOOD Rep #: [id number] : 1950 67 From: Rober Sandoval MD Attending Dr: Dae Peoples MD Status: PRE IN Ordering Dr: Dae Peoples MD Date: 05/29/18 Location: [facility] Sex: M C Admitted: Test Reason : Blood Pressure : / mmHG Vent. Rate : 060 BPM Atrial Rate : 060 BPM P-R Int : 162 ms QRS Dur : 076 ms QT Int : 400 ms P-R-T Axes : 047 058 038 degrees QTc Int : 400 ms Normal sinus rhythm Normal ECG Confirmed by LORI FREEMAN, ROBER ([id number]), proposal editor BLADE DELATORRE ([id number]) on 05/30/2018 3:28:03 PM Referred By: Dae Peoples Confirmed By:ROBER SANDOVAL MD 05/30/18 1528 Date Rober Sandoval MD CC: Tres Alexander DO; Dae Peoples MD Date Dictated: 05/29/18 1509 Date Transcribed: 05/29/18 150 Drying Tunnel Operator: Signed CBC W/DIFF, AUTOMATED Collected: 05/29/2018 Status: F Source: [place] 3:14 PM [facility] TYPE CODE TESTS RESULT OUT OF [...] Lymph 2.06 Performed By: #### L100.0100 #### [facility] [address] [place], [place], [address] BASIC METABOLIC Collected: 05/29/2018 Status: F Source: [place] PROFILE (BMP) 3:14 PM [facility] TYPE CODE TESTS RESULT OUT OF [...] GAP 10 Performed By: #### L500.2500 #### [facility] [address] [place], [address] Observed: 05/29/2018 Status: F Source: [place] MRSA/SAID SCREEN 3:14 PM [facility] MRSA/SAID SCRN S. AUREUS S. aureus Negative MRSA MRSA Negative Performed By: #### M100.651 #### [facility] [place], [address] ONCOLOGY VISIT REPORT Observed: 05/10/2018 Status: F Source: [place] 12:12 PM [facility] [address] [place] [address] OFFICE VISIT Date of Service: 05/10/18 1159 MR#: [id number] Acct: [id number] Name: EDWIGE MAHMOOD Rep #: [id number] : 1950 From: Roque Gunter MD Age/Sex: [...] Chronic Code Visit Office Visits / Consults: 20679 OV L3 Est 05/10/18 1212 <Electronically signed by Roque Gunter MD> Date Roque Gunter MD Cosigner Signature: Date (if applicable) CC: Tres Alexander DO CBC W/DIFF, AUTOMATED Collected: 05/10/2018 Status: F Source: [place] 11:17 AM [facility] Order Comment: Reason for Laboratory Test [...] Lymph 1.35 Performed By: #### L100.0100 #### [facility] [address] [place], [address] COMPREHENSIVE METABOLIC Collected: 05/10/2018 Status: F Source: [facility] 11:17 AM [facility] Order Comment: Reason for Laboratory Test [...] GAP 9 Performed By: #### L500.4050 #### [facility] [address] [place], [place], [id number] AFP, TUMOR MARKER Collected: 05/10/2018 Status: F Source: [place] 11:17 AM [facility] Order Comment: Reason for Laboratory Test . Is Patient ? N TYPE CODE TESTS RESULT OUT OF RANGE REFERENCE UNITS LAB L3300.0700 0.0-8.3 ng/mL Normal AFP TUMOR 2.1 2253 Result Comment: Ginger ECLIA methodology Performed at: - [facility] [address], [place], [place] [id number] Sba Underwriter: Hao Marks PhD, Phone: [phone] Performed By: #### L3300.0700 #### [facility] (refer to report for specific site) refer to report for address and phone number IRON Collected: 05/10/2018 Status: F Source: [place] 11:17 AM [facility] Order Comment: Reason for Laboratory Test . Reason for Laboratory Test . TYPE CODE TESTS RESULT OUT OF RANGE REFERENCE UNITS LAB L503.6150 65-175 ug/dL Normal IRON 103 Performed By: #### L503.6150, L503.6550 #### [facility] [address] [place], [place], [address] FERRITIN Collected: 05/10/2018 Status: F Source: [place] 11:17 AM [facility] Order Comment: Reason for Laboratory Test . Reason for Laboratory Test . TYPE CODE TESTS RESULT OUT OF RANGE REFERENCE UNITS LAB L503.6550 26-388 ng/mL Normal FERRITIN 48 Performed By: #### L503.6150, L503.6550 #### [facility] [address] [place], [place], [address] SERUM CREATININE AND Collected: 03/15/2018 Status: F Source: [place] GFR 10:18 AM [facility] TYPE CODE TESTS RESULT OUT OF [...] GFR Calc Performed By: #### L501.1105 #### [facility] [address] [place], [place], [address] ONCOLOGY VISIT REPORT Observed: 11/02/2017 Status: F Source: [place] 11:48 AM [facility] [address] [place] [address] OFFICE VISIT Date of Service: 11/02/17 1130 MR#: [id number] Acct: [id number] Name: EDWIGE MAHMOOD Rep #: [id number] : 1950 From: Roque Gunter MD Age/Sex: [...] Chronic Code Visit Office Visits / Consults: 98046 OV L3 Est 11/02/17 1148 <Electronically signed by Roque Gunter MD> Date Roque Gunter MD Cosigner Signature: Date (if applicable) CC: VITAMIN D,25 HYDROXY Collected: 11/02/2017 Status: F Source: [place] 8:27 AM [facility] Order Comment: DR ALEXANDER ORDERED VITD/LIPID/CMP [...] (>250 nmol/L) Performed By: #### L506.1000 #### [facility] [place], [address] CBC W/DIFF, AUTOMATED Collected: 11/02/2017 Status: F Source: [place] 8:25 AM [facility] Order Comment: Reason for Laboratory Test [...] Lymph 1.36 Performed By: #### L100.0100 #### [facility] [address] [place], [address] COMPREHENSIVE METABOLIC Collected: 11/02/2017 Status: F Source: [place] [facility] 8:25 AM [facility] Order Comment: Reason for Laboratory Test [...] By: #### L500.4050, L500.4100, L503.6150, L503.6550 #### [facility] [address] [place], [place], [address] LIPID PROFILE Collected: 11/02/2017 Status: F Source: [place] 8:25 AM [facility] Order Comment: Reason for Laboratory Test [...] By: #### L500.4050, L500.4100, L503.6150, L503.6550 #### [facility] [address] [place], [place], [address] IRON Collected: 11/02/2017 Status: F Source: [place] 8:25 AM [facility] Order Comment: Reason for Laboratory Test OV DR ALEXANDER ORDERED VITD/LIPID/CMP DR GUNTER ORDERED CBCD/CMP/CRISTY/FE TYPE CODE TESTS RESULT OUT OF RANGE REFERENCE UNITS LAB L503.6150 65-175 ug/dL Normal IRON 120 Performed By: #### L500.4050, L500.4100, L503.6150, L503.6550 #### [facility] [address] [place], [address] FERRITIN Collected: 11/02/2017 Status: F Source: [place] 8:25 AM [facility] Order Comment: Reason for Laboratory Test OV DR ALEXANDER ORDERED VITD/LIPID/CMP DR GUNTER ORDERED CBCD/CMP/CRISTY/FE TYPE CODE TESTS RESULT OUT OF RANGE REFERENCE UNITS LAB L503.6550 26-388 ng/mL Normal FERRITIN 31 Performed By: #### L500.4050, L500.4100, L503.6150, L503.6550 #### [facility] [address] [place], [address] ALLERGIES ALLERGIES DATE TYPE / CODE NAME / CODE REACTION SEVERITY SOURCE 06/22/2018 Drug Penicillins/G10685 Hives SV Sh[facility]i Allergy/416 0476(RXNORM) [facility] [facility] 550240[facility] ED CT) Repository 06/22/2018 Drug Mufbccl-Rkh-Zit Unknown Unknown [place] Allergy/416 Reductase Formerly [facility] 440696([facility] Inhibitor/[id number] [facility] ED CT) 95(RXNORM) Repository 06/22/2018 Drug nabumetone/[id number] Unknown Unknown [place] Allergy/416 622(RXNORM) Community [address]480([facility] ED CT) Repository 06/22/2018 Drug ezetimibe/[id number] Pain in joints [place] Allergy/416 17(RXNORM) [facility] 297188([facility] ED CT) Repository Drug/[id number] penicillins [facility] 003([facility]) System Repository ENCOUNTERS ENCOUNTERS ADMIT/DISCHARGE ACCOUNT NUMBER ADMITTING ENCOUNTER LOCATION SOURCE CLASS 07/04/2018 [id number] Ambulatory [facility] ding:LABSPEC Repository 06/22/2018/06/22/20 [id number] Emergency [address] ding:ED Repository 06/19/2018 [id number] [place], Ambulatory [facility] ding:[facility] Repository 06/19/2018 [id number] Ambulatory [address] [place] [address] Repository 06/17/2018/06/17/20 [id number] Emergency [address] ding:ED Repository 06/16/2018 [id number] Ambulatory [facility] ding:LAB.FUT Repository URE 06/14/2018/06/15/20 [id number] [place], Inpatient [address] ding:GX9Jqby Repository : ZO223Xuk: 1 06/08/2018 [id number] Ambulatory [facility] ding:BFHLAB Repository 05/29/2018 [id number] Ambulatory B[facility]Building: [facility] Repository 05/10/2018 [id number] Ambulatory BMSBuilding: [place] BMS.CF.[facility]ly [facility] Repository 05/10/2018 [id number] Ambulatory [facility] ding:OMD Repository 03/15/2018 [id number] Ambulatory [facility] ding:BFHLAB Repository 11/02/2017 [id number] Ambulatory BMSBuilding: [place] BMS.CF.Formerly [facility] Repository 11/02/2017 [id number] General acute hospital ding:MTLAB Repository PAYERS PAYERS ENCOUNTER GUARANTOR PAYER SUBSCRIBER SOURCE 07/04/2018 EDWIGE [id number] Primary EDWIGE Hawkins [place] Insurance:MEDICARE MOTZDOB: Community [place] BPolicy [id number] 31731Jxe: Number: Repository [id number] () Date:2018-07-04 07/04/2018 Secondary EDWIGE Hawkins Insurance:NEW ERA MOTZDOB: Community LIFE INSURANCE [id number] Hospital COMPANIPolicy Number: Repository [id number] Date:2538-24-58LV [address] [place] [address] 87844WZ: 07/04/2018 Tertiary NOT GIVENUNK Shruthi Insurance:SELF PAY [facility] Number: Effective Repository Date:2018-07-04 06/22/2018 EDWIGE E [id number] Primary EDWIGE E Shruthi [place] Insurance:MEDICARE MOTZDOB: Community [place] BPolicy [id number] [facility]eman Hospital 48595Syc: Number: Repository [id number] (HP) Date:2018-06-22 06/22/2018 Secondary EDWIGE E [place] Insurance:NEW ERA MOTZDOB: Community LIFE INSURANCE [id number] Hospital COMPANolicy Number: Repository [id number] Date:6606-71-38VV [address] [place] [address] 24427AQ: 06/22/2018 Tertiary NOT GIVENUNK Shruthi Insurance:SELF PAY [facility] Number: Effective Repository Date:2018-06-22 06/19/2018 EDWIGE E Primary EDWIGE E [facility] MOTZDOB: Insurance:MedicarePol MOTZDOB: [facility] icy Number: Effective [id number] System [facility] Date:2018-05-29 - [facility] [id number] [place], [place] Name:CD:[id number] [facility] [address]Uas: [id number], [place] [address]Ttn: [id number]: [phone] (HP) [phone] (HP) () 06/19/2018 Secondary EDWIGE E [facility] Insurance:COMMERCIAL MOTZDOB: [facility] [id number] System Number: Effective [facility] Repository Date:2018-05-29 - [facility], [id number] [place] Name:CD:[id number] [place] [id number]: [address] [place] [address]FL: [phone] (HP) [phone] () 06/19/2018 EDWIGE MOTZDOB: Primary EDWIGE MOTQuentinDOB: [place] Insurance:MedicarePol [id number] icy Number: [facility] Repository [place], [id number] [place] [id number]: Date:Plan Name:[facility] [id number]: A (HP) (HP) 06/19/2018 Secondary EDWIGE MOTQuentinDOB: [place] Insurance:MedicarePol [id number] Hospitals icy Number: [facility] Repository [id number] [place], Date:Plan Name:[facility] [id number]: B () 06/19/2018 Tertiary EDWIGE MOTZDOB: [place] Insurance:CommercialP [id number] Hospitals olic Number: [facility] Repository [id number] [place], Date:Plan Name:[facility] [id number]: () 06/17/2018 EDWIGE Coral [id number] Primary EDWIGE E Shruthi [facility] Insurance:MEDICARE MOTZDOB: Community [place] BPolic [id number] [facility] Hospital [address]Iqb: Number: Repository [id number] (HP) Date:2018-06-17 06/17/2018 Secondary EDWIGE E Shruthi Insurance:NEW ERA MOTZDOB: Community LIFE INSURANCE [id number] Hospital COMPANolicy Number: Repository [id number] Date:1884-66-63JO [address] [place] [address] 37797OY: 06/17/2018 Tertiary NOT GIVENUNK Shruthi Insurance:SELF PAY [facility] Number: Effective Repository Date:2018-06-17 06/16/2018 EDWIGE Moncada [id number] Primary EDWIGE E Shruthi [place] Insurance:MEDICARE MOTZDOB: Community [place] [facility] [id number] Kaseman Hospital [address]Aqz: Number: Repository [id number] (HP) Date:2018-06-16 06/16/2018 Secondary EDWIGE E Shruthi Insurance:NEW ERA MOTZDOB: Community LIFE INSURANCE [id number] Hospital COMPANolicy Number: Repository [id number] Date:8341-33-91QA [address] [place] [address] 36137VV: 06/16/2018 Tertiary NOT GIVENUNK Shruthi Insurance:SELF PAY [facility] Number: Effective Repository Date:2018-06-16 06/14/2018 EDWIGE Moncada [id number] Primary EDWIGE E Shruthi [place] Insurance:MEDICARE MOTZDOB: [facility] [id number] Kaseman Hospital 30023Sdz: Number: Repository [id number] (HP) Date:2018-05-02 06/14/2018 Secondary EDWIGE E [place] Insurance:NEW ERA MOTZDOB: Community LIFE INSURANCE [id number] Number: Repository [id number] Date:5954-50-47[address] [address]LL: 06/14/2018 Tertiary NOT GIVENUNK Shruthi Insurance:SELF PAY [facility] Number: Effective Repository Date:2018-05-02 06/08/2018 EDWIGE Moncada [id number] Primary EDWIGE E Shruthi [place] Insurance:MEDICARE MOTZDOB: Community [place] [facility] [id number] [facility] Hospital 85393Xhb: Number: Repository [id number] (HP) e Date:2018-06-08 06/08/2018 Secondary NOT GIVENUNK [place] Insurance:SELF PAY [facility] Number: Effective Repository Date:2018-06-08 05/29/2018 EDWIGE E [id number] Primary EDWIGE E [place] Insurance:MEDICARE MOTZDOB: Community [place] [facility] [id number] [facility]eman Hospital 46526Lwf: Number: Repository [id number] (HP) Date:2018-05-02 05/29/2018 Secondary EDWIGE E Shruthi Insurance:NEW ERA MOTZDOB: Community [employer]URANCE [id number] Hospital COMPANIPolicy Number: Repository [id number] Date:2422-32-69OX [address] [place] [address] 45321TP: 05/29/2018 Tertiary NOT GIVENUNK [place] Insurance:SELF PAY [facility] Number: Effective Repository Date:2018-05-29 05/10/2018 EDWIGE E [id number] Primary EDWIGE E [place] Insurance:MEDICARE MOTZDOB: Community [place] [facility] [id number] Kaseman Hospital 40523Dcj: Number: Repository [id number] (HP) Date:2017-08-25 05/10/2018 Secondary EDWIGE E [place] Insurance:NEW ERA MOTZDOB: Community LIFE INSURANCE [id number] Health [facility] Hospitalolicy Number: Repository [id number] Date:3893-53-63ZA [address] [address]SD: 05/10/2018 Tertiary NOT GIVENUNK Shruthi Insurance:SELF PAY [facility] Number: Effective Repository Date:2018-05-10 05/10/2018 EDWIGE E [id number] Primary EDWIGE E Shruthi [place] Insurance:MEDICARE MOTZDOB: Community [place] [facility] [id number] Kaseman Hospital 88544Xnc: Number: Repository [id number] (HP) Date:2017-08-25 05/10/2018 Secondary EDWIGE E Shruthi Insurance:NEW ERA MOTZDOB: Community [employer]URANCE [id number] Hospital COMPANolicy Number: Repository [id number] Date:5577-83-03FH [address] [place] [address] 47610IA: 05/10/2018 Tertiary NOT GIVENUNK Shruthi Insurance:SELF PAY [facility] Number: Effective Repository Date:2016-09-14 03/15/2018 EDWIGE E [id number] Primary EDWIGE E [place] Insurance:MEDICARE MOTZDOB: Community [place] [facility] [id number] Kaseman Hospital 73786Tpw: Number: Repository [id number] (HP) Date:2018-03-15 03/15/2018 Secondary EDWIGE E [place] Insurance:NEW ERA MOTZDOB: Community LIFE INSURANCE [id number] Hospital [facility] Number: Repository [id number] Date:8496-99-61MA [address] [place] [address] 75942VB: 03/15/2018 Tertiary NOT GIVENUNK [place] Insurance:SELF PAY [facility] Number: Effective Repository Date:2018-03-15 11/02/2017 EDWIGE E [id number] Primary EDWIGE E [place] Insurance:MEDICARE MOTZDOB: Community [place] [facility] [id number] Kaseman Hospital 79999Kcm: Number: Repository [id number] (HP) Date:2017-08-25 11/02/2017 Secondary EDWIGE E Shruthi Insurance:NEW ERA MOTZDOB: Community [employer]URANCE [id number] Hospital COMPANolicy Number: Repository [id number] Date:8195-87-11AV [address] [place] [address] 59249EQ: 11/02/2017 Tertiary NOT GIVENUNK [place] Insurance:SELF PAY [facility] Number: Effective Repository Date:2017-11-02 11/02/2017 EDWIGE E [id number] Primary EDWIGE E [place] Insurance:MEDICARE MOTZDOB: Community [place] [facility] [id number] Kaseman Hospital 15416Htd: Number: Repository [id number] (HP) Date:2017-11-02 11/02/2017 Secondary EDWIGE [place] Insurance:NEW ERA DAVONB: Community [facility] [id number] Hospital Number: Repository [id number] Date:6530-38-30[address], [place] [address]OL: 11/02/2017 Tertiary NOT GIVENDENA [place] Insurance:SELF PAY [facility] Number: Effective Repository Date:2017-11-02
== END 2018-06-15 15:15 | disposition home or self-care (01) | DRG 470 ==
LOC: ACINP 08:08 → MS3 11:07
PROVIDERS: Admitting Provider Specialist; Family Provider Family Medicine; PCP Family Medicine; Referring Provider Specialist; Visit Provider Specialist
PROC: 0SR904A Replacement of Right Hip Joint with Ceramic on Polyethylene Synthetic Substitute, Uncemented, Open Approach (ICD-10-PCS; CPT 27284; principal; 2018-06-14 09:50)
DX: M16.11 Unilateral primary osteoarthritis, right hip (principal); I10 Essential (primary) hypertension; E83.119 Hemochromatosis, unspecified; Z87.891 Personal history of nicotine dependence; H81.09 Meniere's disease, unspecified ear
CPT/HCPCS: 36415; 73501; 73502; 76000; 80048; 85025; 85027; 87081; 93005; 97110; 97161; 97165; 97530; 97535; 99251; C1776; J7120; G0463

== ENCOUNTER → 2018-06-16 13:22 | Outpatient (CLI) | payer MEDICARE, OTHER, SELFPAY ==
[2018-06-14 14:30] VITALS: BMI 38.9
== END ==
PROVIDERS: Family Provider Family Medicine; PCP Family Medicine; Visit Provider Family Medicine
DX: R30.0 Dysuria (principal)
CPT/HCPCS: 87086

== ENCOUNTER 2018-06-17 06:44 | Emergency (ER) | payer MEDICARE, OTHER, SELFPAY ==
[2018-06-14 14:30] VITALS: BMI 38.9
[2018-06-17 06:44] VITALS: PULSE 74; RESP 18; TEMP 36.9; O2SAT 96; BMI 39.9
[2018-06-17 06:46] VITALS: TEMP 36.9
[2018-06-17 06:48] VITALS: BP 164/80; PULSE 73; RESP 18; O2SAT 95
[2018-06-17] MEDS: Lidocaine Jelly 2% 20 ML Syringe (URO-JET) 20 APPLIC TOPICAL (07:36)
--- NOTE | 2018-06-17 07:38 | ED.VISSUMM ---
- ER Visit Summary Date of Service: 06/17/18 Chief Complaint: Dysuria History of Present Illness: The patient is a 67 M who is postoperative day 3 from a right total hip replacement by Dr. Peoples. He states that on Tuesday he had a surgery and he stayed overnight. He does not know if he had a catheter. He states that he developed some dysuria and on Tuesday saw his primary care physician. He had a rectal examination which found an enlarged prostate. He was already on Flomax and they had him double his Flomax. I also placed him on Bactrim for UTI. He states he continues to have dribbling, suprapubic pressure, and dysuria. He notes that he had difficulty with urination with prior abdominal surgery. He is never had urologic surgery. He denies any fevers. No bowel issues. He notes his hip is progressing appropriately. He also states that he is passing gas but has not had a bowel movement since surgery. He took a Dulcolax this morning. Physical Examination: Afebrile vital signs are stable Gen: Well-nourished well-developed Head: Normocephalic atraumatic Eyes: Perrl EOMI ENT: TMs clear no rhinorrhea moist mucous membranes Neck: Supple no lymphadenopathy no JVD nontender CVS: Regular rate rhythm no murmurs normal S1-S2 Respiratory: No distress clear to auscultation bilaterally chest nontender Abdomen: Soft suprapubic discomfort with palpation normal bowel sounds no masses Back: Nontender Extremity: ABHAY hose are in place. Surgical site clean dry and intact. Skin: Normal color no rash Neuro: alert orientated ?3 CN II-XII intact normal strength sensation reflexes Psych: Normal affect normal mood Test Results: Urinalysis is negative for infection. It did dip positive for nitrates however the microscopic is normal. Creatinine is normal. White count is normal. Emergency Department Course and Treatment: Bedside ultrasound was obtained which demonstrates a distended bladder. Alvarez catheter was placed by nursing. This removed 1500 cc. Patient feels significantly improved. He is to continue on his Flomax and Bactrim. I will also give him some magnesium citrate to assist in his bowel movement. He should call his doctor's office on Tuesday to see if they have office hours and can remove the catheter. I will also give him urology's phone number and if nobody can remove it he is to come back to the emergency room for removal to see if he can urinate again. Patient and noted understanding. Impression: 1. Acute urinary retention 2. Constipation This note was generated with [employer] dictation software. It may contain incorrect words, spelling, and punctuation that were not noted in review of the chart prior to signing ED Disposition - Plan for ED Patient: Disposition: Home or Assisted Living Chief Complaint: Complaint Instructions: ED Retention Urinary Male Referrals: Tres Alexander DO [Primary Care Provider] - (call on Tuesday to see if they are able to remove catheter) Yoshi Sanderson MD [STAFF PHYSICIAN] - (call on Tuesday if your PCP is unable to remove catheter) Additional Instructions: If no one is available to remove the catheter please return to the emergency department
[2018-06-17 07:39] LABS: Absolute Lymphocyte Count 0.92 X10^3/ul (0.83-4.51); Absolute Neutrophil Count 5.5 X10^3/uL (2.0-7.7); Basophil# 0.01 X10^3/uL; Basophil% 0.1 % (0-1); Eosinophil# 0.09 X10^3/uL; Eosinophils% 1.3 % (0-5); Hematocrit 38.5 % (40-54); Hemoglobin 13.6 g/dl (13.0-16.5); Lymphocyte # 0.92 X10^3/ul (4.0); Lymphocyte % 12.8 % (19-41); Mean Corp Hgb Conc 35.3 g/gl (32-36); Mean Corpuscular Hgb 32.2 pg (27.0-32.0); Mean Corpuscular Volume 91.2 fL (80-94); Mean Platelet Vol. 10.4 fl (6.2-12.0); Monocyte# 0.61 X10^3/uL; Monocyte% 8.5 % (0-10); Neutrophil # 5.52 X10^3/uL (2.7-7.7); Neutrophil % 77.2 % (47-70); POSITIVE COUNT NO; POSITIVE DIFFERENTIAL NO; POSITIVE MORPHOLOGY NO; Platelet Count 148 K/mm3 (150-450); RBC Distribution Width CV 13.4 % (11.6-14.6); Red Blood Count 4.22 M/mm3 (4.6-6.2); White Blood Count 7.2 K/mm3 (4.4-11.0)
[2018-06-17 07:42] LABS: Bacteria 0 SEEN /hpf (None Seen); Mucous, Urine 0 SEEN /hpf (<or=2+); Red Blood Cells-Urine 0 SEEN /hpf (0-5); Squamous Epithelial Cells - UA 0 SEEN /hpf (0-5); White Blood Cells 0 SEEN /hpf (0-5)
[2018-06-17 07:42] LABS: Anion Gap 11 (5-15); BUN 12 mg/dL (7-18); BUN/Creat Ratio 11.7 RATIO (10-20); Calcium,Total 8.8 mg/dL (8.5-10.1); Chloride 98 mmol/L (98-107); Creatinine, Serum 1.03 mg/dL (0.70-1.30); EST Glomerular Filtration Rate 77 mL/min (>60); Est Glom Filt Rate - Afr Amer 93 mL/min (>60); Estimated Creatinine Clearance 83.13 ml/min; Glucose 146 mg/dL (74-106); Potassium 3.3 mmol/L (3.5-5.1); Sodium Level 135 mmol/L (136-145)
[2018-06-17 07:43] LABS: Color, Urine Yellow (Yellow); Glucose, Dipstick Normal (Normal); Ketone-Dipstick 5 mg/dl (Negative); Leukocyte Esterase-Dipstick Negative /ul (Negative); Nitrite-Dipstick Positive (Negative); Occult Blood-Urine Negative /ul (Negative); Protein-Dipstick Negative (Negative); Urine Bilirubin Dipstick Negative (Negative); Urine Clarity Clear (Clear); Urine Urobilinogen Normal (Normal); Urine pH 6.5 (5.0 - 8.0)
[2018-06-17 08:28] VITALS: BP 124/67; PULSE 59; RESP 16; O2SAT 98
[2018-06-17] MEDS: Magnesium Citrate 300 ML PO (08:31)
== END 2018-06-17 08:31 | disposition home or self-care (01) ==
PROVIDERS: Emergency Provider Emergency Medicine; Family Provider Family Medicine; PCP Family Medicine
DX: N40.1 Benign prostatic hyperplasia with lower urinary tract symptoms (principal); R33.8 Other retention of urine; R30.0 Dysuria; N39.0 Urinary tract infection, site not specified; K59.00 Constipation, unspecified; Z79.82 Long term (current) use of aspirin; Z79.899 Other long term (current) drug therapy; Z96.641 Presence of right artificial hip joint
CPT/HCPCS: 51702; 80048; 81001; 85025; 99285; A4216

== ENCOUNTER 2018-06-22 16:31 | Emergency (ER) | payer MEDICARE, OTHER, SELFPAY ==
[2018-06-22 16:32] VITALS: BP 170/90; PULSE 86; RESP 18; TEMP 36.5; O2SAT 96; BMI 37.8
[2018-06-22 17:18] VITALS: PULSE 83; RESP 18; TEMP 36.5; O2SAT 99
[2018-06-22] MEDS: Lidocaine Jelly 2% 20 ML Syringe (URO-JET) 20 APPLIC TOPICAL (17:56)
--- NOTE | 2018-06-22 18:02 | ED.VISSUMM ---
- ER Visit Summary Date of Service: 06/22/18 Chief Complaint: Urinary retention History of Present Illness: The patient is a 67 M who had a hip replacement on June 14. He had urinary retention requiring a catheter which was taken out yesterday. He feels the need to urinate but is only getting small trickles of urine. He is currently on Bactrim although his urine did not show sign of infection when seen here the . He is also on Flomax twice a day. Physical Examination: Vital signs significant for hypertension with a blood pressure of 170/90. Head neck examination normal. Heart is regular rate and rhythm. Lung sounds are clear. Abdomen is soft with mild superpubic tenderness. Test Results: [] Emergency Department Course and Treatment: Alvarez catheter was placed with 1700 cc of urine returned. Patient feels significantly improved. Alvarez will be left in place. He will continue his Flomax and will follow up with urology. Treatment Plan: [] Disposition: Discharge Impression: Urinary retention This note was generated with [employer] dictation software. It may contain incorrect words, spelling, and punctuation that were not noted in review of the chart prior to signing ED Disposition - Plan for ED Patient: Chief Complaint: Complaint Referrals: Tres Alexander DO [Primary Care Provider] -
--- NOTE | 2018-06-22 18:05 | ED.DEP ---
ED Disposition - Plan for ED Patient: Disposition: Home or Assisted Living Chief Complaint: Complaint Instructions: ED Retention Urinary Male Referrals: Yoshi Sanderson MD [STAFF PHYSICIAN] - As soon as possible
== END 2018-06-22 18:26 | disposition home or self-care (01) ==
PROVIDERS: Emergency Provider Emergency Medicine; Family Provider Family Medicine; PCP Family Medicine
DX: R33.9 Retention of urine, unspecified (principal); I10 Essential (primary) hypertension; Z79.82 Long term (current) use of aspirin; Z79.899 Other long term (current) drug therapy; Z87.891 Personal history of nicotine dependence
CPT/HCPCS: 51702; 99284

== ENCOUNTER → 2018-07-04 17:14 | Outpatient (CLI) | payer MEDICARE, OTHER, SELFPAY ==
[2018-06-22 16:32] VITALS: BMI 37.8
== END ==
PROVIDERS: Family Provider Family Medicine; PCP Family Medicine; Referring Provider Nurse Practitioner Adult Health; Visit Provider Nurse Practitioner Adult Health
DX: R30.0 Dysuria (principal); R33.9 Retention of urine, unspecified
CPT/HCPCS: 87077; 87086; 87088; 87186

== ENCOUNTER → 2018-10-12 08:38 | Outpatient (CLI) | payer MEDICARE, OTHER, SELFPAY ==
[2018-10-12 12:15] LABS: Absolute Lymphocyte Count 1.06 X10^3/ul (0.83-4.51); Absolute Neutrophil Count 3.1 X10^3/uL (2.0-7.7); Basophil# 0.01 X10^3/uL; Basophil% 0.2 % (0-1); Eosinophil# 0.12 X10^3/uL; Eosinophils% 2.5 % (0-5); Hematocrit 46.3 % (40-54); Hemoglobin 15.9 g/dl (13.0-16.5); Lymphocyte # 1.06 X10^3/ul (4.0); Lymphocyte % 21.9 % (19-41); Mean Corp Hgb Conc 34.3 g/gl (32-36); Mean Corpuscular Hgb 29.8 pg (27.0-32.0); Mean Corpuscular Volume 86.9 fL (80-94); Mean Platelet Vol. 11.3 fl (6.2-12.0); Monocyte% 10.4 % (0-10); Neutrophil # 3.13 X10^3/uL (2.7-7.7); Neutrophil % 64.8 % (47-70); Platelet Count 161 K/mm3 (150-450); RBC Distribution Width SD 44.5 fl (35.1-43.9); Red Blood Count 5.33 M/mm3 (4.6-6.2); White Blood Count 4.8 K/mm3 (4.4-11.0)
[2018-10-12 12:17] LABS: POSITIVE COUNT NO; POSITIVE DIFFERENTIAL NO; POSITIVE MORPHOLOGY NO
[2018-10-12 12:30] LABS: AST(SGOT) 72 U/L (15-37); Alanine Aminotransfer ALT/SGPT 106 U/L (16-61); Alkaline Phosphatase 100 U/L (45-117); Anion Gap 6 (5-15); BUN 19 mg/dL (7-18); BUN/Creat Ratio 18.3 RATIO (10-20); Calcium,Total 9.3 mg/dL (8.5-10.1); Chloride 105 mmol/L (98-107); Cholesterol 228 mg/dL (200); Creatinine, Serum 1.04 mg/dL (0.70-1.30); EST Glomerular Filtration Rate 76 mL/min (>60); Est Glom Filt Rate - Afr Amer 92 mL/min (>60); Globulin 3.9 g/dL (2.2-4.2); Glucose 127 mg/dL (74-106); High Density Lipoprotein 38 mg/dL; Potassium 4.2 mmol/L (3.5-5.1); Protein, Total 7.9 g/dL (6.4-8.2); Sodium Level 138 mmol/L (136-145); Triglycerides 220 mg/dL; Very Low Density Lipoprotein 44 mg/dL (5-40)
[2018-10-12 12:31] LABS: Hemoglobin A1c 6.5 % (4.2-6.3)
== END ==
PROVIDERS: Internal Medicine Medical Oncology; Family Provider Family Medicine; PCP Family Medicine; Visit Provider Family Medicine
DX: I10 Essential (primary) hypertension (principal); R73.01 Impaired fasting glucose; R61 Generalized hyperhidrosis; E66.9 Obesity, unspecified; E83.119 Hemochromatosis, unspecified
CPT/HCPCS: 36415; 80053; 80061; 83036; 85025

== ENCOUNTER → 2018-11-30 11:54 | Outpatient (CLI) | payer MEDICARE, OTHER, SELFPAY ==
[2018-11-01 14:18] VITALS: BMI 37.0
[2018-12-05 09:37] LABS: Testosterone, Free 10.77 ng/dL (5.00-21.00)
[2018-12-05 13:24] LABS: Testosterone, % Free 2.79 % (1.50-4.20); Testosterone, Total 386 ng/dL (264-916)
== END ==
PROVIDERS: Family Provider Family Medicine; PCP Family Medicine; Visit Provider Family Medicine
DX: R53.83 Other fatigue (principal); R23.2 Flushing
CPT/HCPCS: 36415; 84402; 84403

== ENCOUNTER → 2018-12-19 10:06 | Outpatient (CLI) | payer MEDICARE, OTHER, SELFPAY ==
[2018-11-01 14:18] VITALS: BMI 37.0
[2018-12-22 03:07] LABS: Lyme IgG P18 Ab Absent (.); Lyme IgG P23 Ab Absent (.); Lyme IgG P28 Ab Absent (.); Lyme IgG P30 Ab Absent (.); Lyme IgG P39 Ab Absent (.); Lyme IgG P41 Ab Absent (.); Lyme IgG P45 Ab Absent (.); Lyme IgG P58 Ab Absent (.); Lyme IgG P66 Ab Absent (.); Lyme IgG P93 Ab Absent (.); Lyme IgM P23 Ab Absent (.); Lyme IgM P39 Ab Absent (.); Lyme IgM P41 Ab Absent (.)
[2018-12-22 11:17] LABS: EBV Acute VCA IgM < 36.0 U/mL (0.0-35.9); EBV Early Antigen IgG >150.0 U/mL (0.0-8.9); EBV-VCA IgG > 600.0 U/mL (0.0-17.9); Lyme IgG WB Interpretation Negative (.); Lyme IgM WB Interpretation Negative (.)
== END ==
PROVIDERS: Family Provider Family Medicine; PCP Family Medicine; Visit Provider Family Medicine
DX: M25.50 Pain in unspecified joint (principal); R53.83 Other fatigue
CPT/HCPCS: 36415; 86617; 86663; 86664; 86665

== ENCOUNTER → 2019-06-05 13:05 | Outpatient (CLI) | payer MEDICARE, OTHER, SELFPAY ==
[2019-05-09 10:37] VITALS: BMI 35.8
--- NOTE | 2019-06-05 13:09 | ECHOCS_ITS ---
Reason For Study: Afib/Flutter Procedure This was a 2D Doppler, Color Flow transthoracic echocardiogram. The study was technically difficult. Contrast injection was performed. Exam performed in department. Left Ventricle Normal LV size. Left ventricular systolic function is normal. The estimated ejection fraction is 60 %. Unable to assess diastolic dysfunction due to arrhythmia. No regional wall motion abnormalities noted. Right Ventricle Normal RV size. Normal systolic function. Atria The left atrium is mildly enlarged. The right atrium is mildly enlarged. Bubble contrast study negative for right to left interatrial shunt. Mitral Valve Normal mitral valve. Tricuspid Valve Normal tricuspid valve. Mild tricuspid valve insufficiency. Aortic Valve The aortic valve is not well visualized. Mild (1+) aortic valve insufficiency. Pulmonic Valve Normal pulmonic valve. Great Vessels Normal aortic root. The pulmonary artery is normal size. Normal inferior vena cava. Pericardium/Pleural No pericardial effusion. Medication 22 gauge I.V. with prn adaptor inserted into right arm. Diluted definity 3ml given slow IV push to enhance endocardial definition. Performed a rapid injection of agitated mix of 9 cc saline and 1cc air to assess for atrial septal defect. MMode/2D Measurements & Calculations LVIDd: 3.9 cm IVSd: 1.4 cm LA dimension: 3.8 cm LVIDs: 2.6 cm LVPWd: 1.1 cm FS: 32.4 % LAV(MOD-bp): 72.5 ml LA A4 area: 24.3 cm2 RA A4 area: 23.1 cm2 LAV(MOD-bp) Indexed: 29.1 ml/m2 LAV(MOD-sp2): 65.1 ml LAV(MOD-sp4): 82.3 ml Doppler Measurements & Calculations MV E max deisy: 58.1 cm/sec Ao V2 max: 78.0 cm/sec AI max deisy: 289.5 cm/sec MV A max deisy: 75.9 cm/sec Ao max P.4 mmHg AI max P.5 mmHg MV E/A: 0.77 AI dec slope: 133.7 cm/sec2 AI P1/2t: 634.1 msec LV V1 max: 73.2 cm/sec PA V2 max: 82.8 cm/sec TR max deisy: 210.0 cm/sec LV V1 max P.1 mmHg TR max P.6 mmHg Interpretation Summary Normal LV size. Left ventricular systolic function is normal. The estimated ejection fraction is 60 %. Unable to assess diastolic dysfunction due to arrhythmia. Bubble contrast study negative for right to left interatrial shunt. Ordering Physician: Faustino Chin Referring Physician: Tres Alexander Performed By: Wilmar Toure RCS
== END ==
PROVIDERS: Family Provider Family Medicine; PCP Family Medicine; Referring Provider Internal Medicine Cardiovascular Disease; Visit Provider Internal Medicine Cardiovascular Disease
DX: R94.31 Abnormal electrocardiogram [ECG] [EKG] (principal); I48.91 Unspecified atrial fibrillation; I48.92 Unspecified atrial flutter; I10 Essential (primary) hypertension; E78.5 Hyperlipidemia, unspecified; E83.119 Hemochromatosis, unspecified; Z79.01 Long term (current) use of anticoagulants
CPT/HCPCS: 93306; Q9957; A4216; C8929

== ENCOUNTER 2019-06-11 10:22 | Day surgery (SDC) | payer MEDICARE, OTHER, SELFPAY ==
[2019-05-09 10:37] VITALS: BMI 35.8
--- NOTE | 2019-05-09 11:32 | RAD_ITS ---
STUDY: X-RAY CHEST REASON FOR EXAM: Male, 68 years old. Preop. TECHNIQUE: Frontal and lateral views of the chest. COMPARISON: 06/02/2016. FINDINGS: The lungs are hyperexpanded. There are coarsened interstitial markings suggestive of mild chronic fibrosis. Micronodular pattern in both upper lobes is stable and likely related to previous granulomatous disease. No gross focal infiltrates. No gross effusions. Normal size heart. Normal mediastinum and leta. Normal visualized pulmonary arteries. Normal visualized aortic arch and descending thoracic aorta. Normal visualized thoracic spine. Normal visualized ribs, clavicles, and shoulders. There is no demonstrated abnormality of the visualized soft tissue structures of the upper abdomen. RAD/Chest PA and Lateral IMPRESSION: There are findings consistent with COPD. There is no evidence of acute chest disease. Electronically Signed: Daren Donnelly MD at 18:27 EST , Service support ,
[2019-05-09 12:42] LABS: International Normalized Ratio 1.9; Prothrombin Time (Protime)PT. 22.1 SECONDS (11.7-14.9)
[2019-05-09 13:00] LABS: Anion Gap 5 (5-15); BUN 26 mg/dL (7-18); BUN/Creat Ratio 30.4 RATIO (10-20); Calcium,Total 9.5 mg/dL (8.5-10.1); Chloride 105 mmol/L (98-107); Creatinine, Serum 0.85 mg/dL (0.70-1.30); EST Glomerular Filtration Rate 95 mL/min (>60); Est Glom Filt Rate - Afr Amer 115 mL/min (>60); Glucose 109 mg/dL (74-106); Sodium Level 135 mmol/L (136-145)
[2019-06-05 13:56] LABS: International Normalized Ratio 2.6; Prothrombin Time (Protime)PT. 28.3 SECONDS (11.7-14.9)
[2019-06-08 10:12] VITALS: BMI 35.8
--- NOTE | 2019-06-11 11:59 | HP.PCM_ITS ---
History and Physical Date of Admission: 06/11/19 This is a 68 year old gentleman that presents here today for a cardioversion. He does have a hx of htn and atrial flutter status post cardioversion in June 2016. At that time he had been undergoing a colonoscopy when this occurred. He does not have any chest discomfort/heaviness/tightness. He does not have any worsening symptoms of shortness of breath. He denies any PND. He does not have any orthopnea. He does not have any symptoms of congestive heart failure. He does not have any palpitations that he is aware of. He does not have any lightheadedness or dizziness. He does not have any near-syncope or syncope. He does not have any lower extremity edema. He does not have any symptoms of claudication. Intake VS: see chart Allergies Penicillins [PCN] Allergy (Severe, Verified 05/02/19 13:49) Hives nabumetone [From Relafen] Allergy (Verified 05/02/19 13:49) Unknown ezetimibe [From Zetia] Adverse Reaction (Intermediate, Verified 05/02/19 13:49) Pain in joints Hmznujz-Kpr-Nyq Reductase Inhibitor Adverse Reaction (Verified 05/02/19 13:49) Unknown Medications Multivit-Min/FA/Lycopene/Lut [Centrum Silver Tablet] 1 ea PO DAILY 05/22/14 [History Confirmed 05/09/19] Losartan/Hydrochlorothiazide [Losartan-Hctz 50-12.5 mg Tab] 1 tab PO DAILY 05/10/18 [History Confirmed 05/09/19] Acetaminophen [Tylenol] 1,000 mg PO Q8 PRN 11/01/18 [History Confirmed 05/09/19] Warfarin Sodium [Coumadin] 10 mg PO DAILY 05/02/19 [History Confirmed 05/09/19] meloxicam 15 mg tablet 15 mg PO DAILY 05/09/19 [History Confirmed 05/09/19] metoprolol succinate ER 50 mg tablet,extended release 24 hr 50 mg PO DAILY #90 tab 05/09/19 [Rx Confirmed 05/09/19] sertraline 100 mg tablet 100 mg PO DAILY 05/09/19 [History Confirmed 05/09/19] [facility] Medical History Paroxysmal atrial flutter (Chronic) Essential (primary) hypertension (Chronic) Hyperlipidemia (Chronic) Hemochromatosis (Chronic) Obesity (Chronic) Arthritis (Chronic) Cirrhosis (Chronic) Diverticulitis (Chronic) Hereditary hemochromatosis (Chronic) MAURI (obstructive sleep apnea) (Chronic) Vertigo (Chronic) Surgical History History of cardioversion (Resolved 06/2016) History of appendectomy (Resolved) History of back surgery (Resolved) History of colon resection (Resolved) History of eye surgery (Resolved) History of hernia repair (Resolved) History of hip replacement, total (Resolved) History of vasectomy (Resolved) Family History Mother COPD (chronic obstructive pulmonary disease) Father Heart disease Social History (Updated 05/09/19 @ 11:07 by Faustino Chin MD) Smoking Status: Former smoker ROS Const Const: Negative for fatigue, weakness, headache(s), frequent falls, difficulty sleeping or excessive sweating Eyes Eyes: Negative for loss of peripheral vision, transient loss of vision, blurry vision, double vision or tunnel vision ENT ENT: Negative for headache(s), dizziness, Nosebleed/epistaxis or balance problems Cardio Chest Pain: No Palpitations: No Edema: None Muscle aches with walking: None Resp Respiratory: Negative for SOB with activity, SOB at rest, SOB orthopnea\SOB lying down, Cough or paroxysmal nocturnal dyspnea Additional Details: Using Bi-Pap GI GI: Negative nausea, vomiting, heartburn or black,tarry stools : Negative for hematuria Musc Musc: Negative for muscle aches/ myalgia, muscle weakness, joint pain or balance problems Skin Skin: Negative non-healing lesions, rash or unusual bruising Neuro Neuro: Negative for dizziness, lightheadedness, near syncope, syncope, orthostatic symptoms, frequent falls, headache(s), weakness, blurry vision, double vision or lack of coordination Dwight Hematologic/Lymphatic: Negative for easy bleeding or easy bruising Endo Endo: Negative for fatigue, excessive sweating or increased thirst/drinking Psych Psych: Negative for anxiety or depression Allergy Allergy/Immunology: Negative for hives, Negative for rash Cardiology Exam Const Appearance: cooperative, healthy appearing, no acute distress, well developed and well groomed Nutritional Appearance: average body habitus and well nourished Orientation: alert, awake and oriented x3 Head Head: normal to inspection, normocephalic and atraumatic Ears: hearing grossly normal bilaterally and external ears normal Nose: external nose normal, nares normal, nasal mucous membranes and turbinates normal, septum normal, no nasal discharge Face and Sinus: face symmetric Mouth: oral mucosae normal, tongue normal, oropharynx normal and moist mucous membranes Teeth and gingiva: dentition normal Throat: posterior oropharynx normal, tonsils normal and uvula midline Eyes General: appearance normal, both eyes and all related structures Eyelids: eyelids normal Conjunctivae: conjunctivae normal Pupils: PERRL, normal by confrontation and accommodation normal EOM: EOM intact bilaterally Neck Neck: normal visual inspection, trachea midline and no JVD JVD: +5 Carotids: normal carotid upstroke and bounding pulses Chest Chest inspection: normal inspection of the chest, symmetric chest movement and normal respiratory effort Auscultation: Bilateral: Clear to Auscultation Cardio Palpation: normal PMI Rate: regular rate Rhythm: irregular rhythm Heart sounds: S1 normal, S2 normal and normal, physiologic split S2; negative rub, gallop or murmur GI GI: normal to inspection, soft, no hepatosplenomegaly and bowel sounds present Neuro General: alert, awake, oriented x3, gait normal, moves all extremities and no focal sensory deficit Skin Skin: no rashes or lesions noted Extremities Pulses: Normal: Right Femoral Pulse, Left Femoral Pulse, Right Dorsalis Pedis Pulse, Left Dorsalis Pedis Pulse, Right Posterior Tibial Pulse, Left Posterior Tibial Pulse, Right Radial Pulse, Left Radial Pulse Lower Extremity Edema: None: Bilateral Musculoskel Musculoskeletal: No joint tenderness Psych Psychological: normal affect Assessment & Plan 1. Paroxysmal atrial flutter I48.92 He does have a history of paroxysmal atrial flutter. At this time it appears to be persistent. He is agreeable to undergo a cardioversion today. 2. Essential (primary) hypertension I10 Blood pressure is well controlled on current medications, we do not recommend any changes at this time.
--- NOTE | 2019-06-11 12:18 | CARDIOVERS ---
Cardioversion Cardioversion: DC cardioversion 68-year-old male with a history of atrial flutter. The patient has been on anticoagulation for the appropriate period of time. The patient was brought into the cardiac catheterization suite in the postabsorptive nonsedated state. The patient was seen by Dr. Amaya of the critical care division. Informed consent was obtained. Anterior-posterior pads were applied. 200 J of synchronized DC cardioversion energy were applied after atrial flutter was confirmed. The patient converted back to sinus rhythm. Patient tolerated the procedure well. Conclusion: DC cardioversion to sinus rhythm from atrial flutter successfully
--- NOTE | 2019-06-11 12:34 | PRO.PCM_ITS ---
Procedure Report Date of Procedure: 06/11/19 CONSCIOUS SEDATION REPORT DATE OF SERVICE: June 11, 2019 BRIEF HISTORY OF PRESENT ILLNESS: The patient is a 68-year-old male who presented to [facility] for an elective outpatient cardioversion due to underlying atrial fibrillation. The patient does have a known history of obstructive sleep apnea and currently utilizes nocturnal BiPAP therapy. His last surface echocardiogram revealed an ejection fraction of approximately 60%. He is currently anticoagulated on Coumadin with an INR of 2.8 today. He denies a history of previous anesthetic complications. He similarly denies a history of COPD or asthma. PHYSICAL EXAMINATION: VITAL SIGNS: Reviewed and were acceptable. GENERAL: The patient is an obese male, in no apparent distress, speaking in full sentences. HEENT: Normocephalic, atraumatic. Mucous membranes are moist and pink. Good mouth opening noted. Trachea is midline. Good neck mobility. MPIII CHEST: S1, S2 irregularly irregular. No murmurs, rubs or gallops were noted. LUNGS: Clear to auscultation bilaterally without appreciable wheezes, rales or rhonchi. ABDOMEN: Soft, nontender, nondistended. Positive bowel sounds. EXTREMITIES: There is no clubbing, cyanosis or edema. ASA Class: II DESCRIPTION OF PROCEDURE: After confirmation of informed consent, the patient's anesthesia plan was reviewed in detail. Propofol was chosen. Risks and benefits were reviewed and the patient agreed to proceed. At 1207, the patient was given his first bolus of propofol. In total, the patient required 100 mg of propofol to achieve an appropriate level of sedation, after which time, he was given a 200 joule synchronized cardioversion by Dr. Chin at the bedside. This was successful in achieving normal sinus rhythm. The patient was monitored until 1218, at which time he reached his baseline mental status and function. The patient tolerated the procedure well. COMPLICATIONS: None ESTIMATED BLOOD LOSS: None RECOMMENDATIONS: Okay to recover in usual fashion. Code Visit 9xxxx: Other Procedure See Report - [id number]
[2019-06-11 14:23] LABS: Prothrombin Time Fingerstick 32.3 SEC (11.9-14.4)
[2019-06-12 15:28] LABS: International Normalized Ratio 2.8; Prothrombin Time (Protime)PT. 29.4 SECONDS (11.7-14.9)
[2019-06-12 15:29] LABS: Anion Gap 9 (5-15); BUN 22 mg/dL (7-18); BUN/Creat Ratio 24.4 RATIO (10-20); Calcium,Total 9.5 mg/dL (8.5-10.1); Chloride 103 mmol/L (98-107); EST Glomerular Filtration Rate 90 mL/min (>60); Est Glom Filt Rate - Afr Amer 109 mL/min (>60); Estimated Creatinine Clearance 93.87 ml/min; Glucose 93 mg/dL (74-106); Potassium 4.1 mmol/L (3.5-5.1); Sodium Level 136 mmol/L (136-145)
== END 2019-06-11 13:30 | disposition home or self-care (01) ==
PROVIDERS: Family Provider Family Medicine; PCP Family Medicine; Referring Provider Internal Medicine Cardiovascular Disease; Visit Provider Internal Medicine Cardiovascular Disease
DX: I48.92 Unspecified atrial flutter (principal); I25.10 Atherosclerotic heart disease of native coronary artery without angina pectoris; I10 Essential (primary) hypertension; R07.9 Chest pain, unspecified; E78.5 Hyperlipidemia, unspecified; M19.90 Unspecified osteoarthritis, unspecified site; E83.110 Hereditary hemochromatosis; G47.33 Obstructive sleep apnea (adult) (pediatric); F17.210 Nicotine dependence, cigarettes, uncomplicated; E66.9 Obesity, unspecified; Z68.33 Body mass index [BMI] 33.0-33.9, adult; Z79.01 Long term (current) use of anticoagulants; Z79.899 Other long term (current) drug therapy
CPT/HCPCS: 36415; 36416; 71046; 80048; 85610; 92960; 93005; J7040

== ENCOUNTER 2019-06-18 09:02 | Outpatient (RCR) | payer MEDICARE, OTHER, SELFPAY ==
[2019-06-18 09:49] LABS: International Normalized Ratio 2.8; Prothrombin Time (Protime)PT. 29.6 SECONDS (11.7-14.9)
== END 2019-06-18 18:00 | disposition home or self-care (01) ==
LOC: LAB 09:02
PROVIDERS: Family Provider Family Medicine; PCP Family Medicine; Referring Provider Internal Medicine Cardiovascular Disease; Visit Provider Internal Medicine Cardiovascular Disease
DX: I48.92 Unspecified atrial flutter (principal); Z79.01 Long term (current) use of anticoagulants
CPT/HCPCS: 36415; 85610

== ENCOUNTER → 2019-11-15 12:31 | Outpatient (CLI) | payer MEDICARE, OTHER, SELFPAY ==
[2018-11-01 14:18] VITALS: BMI 37.0
[2019-10-31 14:24] VITALS: BMI 36.8
[2019-11-16 07:01] LABS: SAR-COV-2 IGG ANTIBODY Negative (Negative)
== END ==
PROVIDERS: Family Provider Family Medicine; PCP Family Medicine; Referring Provider Family Medicine; Visit Provider Family Medicine
DX: Z20.828 Contact with and (suspected) exposure to other viral communicable diseases (principal)
CPT/HCPCS: 86769; G2023

== ENCOUNTER → 2019-12-18 | Outpatient (CLI) | payer MEDICARE, OTHER, SELFPAY ==
[2019-10-31 14:24] VITALS: BMI 36.8
== END | disposition home or self-care (01) ==
LOC: LABSPEC 12:21
PROVIDERS: PCP Family Medicine; Referring Provider Family Medicine; Visit Provider Family Medicine
DX: Z20.828 Contact with and (suspected) exposure to other viral communicable diseases (principal)
CPT/HCPCS: 87635; U0003

== ENCOUNTER → 2020-01-01 10:12 | Outpatient (CLI) | payer MEDICARE, OTHER, SELFPAY ==
[2019-10-31 14:24] VITALS: BMI 36.8
== END ==
PROVIDERS: PCP Family Medicine; Visit Provider Family Medicine
DX: Z20.828 Contact with and (suspected) exposure to other viral communicable diseases (principal)
CPT/HCPCS: 87635; G2023; U0003

== ENCOUNTER → 2020-11-13 08:53 | Outpatient (CLI) | payer MEDICARE, OTHER, SELFPAY ==
[2020-01-29 15:38] VITALS: BMI 37.8
[2020-10-29 14:05] VITALS: BMI 34.9
[2020-11-13 10:41] LABS: Vitamin D,25 Hydroxy 49.5 ng/mL
[2020-11-13 10:57] LABS: Cholesterol 217 mg/dL (200); Hemoglobin A1c 5.6 % (3.8-5.6); High Density Lipoprotein 46 mg/dL; PSA,Total - Annual Screen 1.78 ng/mL (0.00-4.00); Triglycerides 170 mg/dL; Very Low Density Lipoprotein 34 mg/dL (5-40)
== END ==
PROVIDERS: PCP Family Medicine; Referring Provider Family Medicine; Visit Provider Family Medicine
DX: I10 Essential (primary) hypertension (principal); E55.9 Vitamin D deficiency, unspecified; R73.03 Prediabetes; Z12.5 Encounter for screening for malignant neoplasm of prostate
CPT/HCPCS: 36415; 80061; 82306; 83036; 84153; G0103

== ENCOUNTER 2021-05-29 06:49 | Day surgery (SDC) | payer MEDICARE, OTHER, SELFPAY ==
[2021-05-29] VITALS (11 sets, daily range): BP systolic 111–163; BP diastolic 77–102; PULSE 59–74; RESP 16; TEMP 36.2–37.1; O2SAT 93–99; BMI 34.8
[2021-05-29] MEDS: Lactated Ringers 1,000 ML 15 ML IV (07:37)
--- NOTE | 2021-05-29 08:00 | COLBX_PTH ---
PATIENT: EDWIGE MAHMOOD LOC: EN U#:[id number] AGE/SX: 70/M ROOM: RE05/29/[address]: Dr. Douglas Renner MD : 1950 BED: DIS: 05/29/2021 SPEC #: [id number] RECD: 05/29/21 10:45 STATUS: RASHEED RESTREPO #: [id number] SERGE: 05/29/21 08:[address]: Douglas Renner DEPT: SURGICAL PATHOLOGY RECD BY: [address]le St ENTERED: 05/29/21 11:46 SP TYPE: COLON BX OTHR DR: Dr. Tres Alexander, DO Tissues: Rectum, NOS Procedures: Surgery Specimen Level IV HEADER OPERATION: Colonoscopy ? open access (MOD) PRE-OP DIAGNOSIS: History of colonic polyps TISSUE SUBMITTED: Rectal polyp MICROSCOPIC DIAGNOSIS Rectal polyp, biopsy: Hyperplastic polyp. AM:tommy 06/01/2021 MICROSCOPIC DESCRIPTION Slides are reviewed. GROSS DESCRIPTION Received in fixative is one container labeled with the patient's name and designated rectal polyp. The specimen consists of a flores-pink polyp measuring 0.6 x 0.6 x 0.3 cm. The entire specimen is submitted in one cassette. / SJ:tommy 05/29/21 TC:5 CPT: 12473
--- NOTE | 2021-05-29 08:09 | PCM.HP.STD ---
HPI - General HPI Narrative EDWIGE MAHMOOD, is a 70 M who presents today for surveillance colonoscopy. He has a history of colon polyps. He also has a history of hemochromatosis. His last colonoscopy was performed by myself 5 years ago. He has not had COVID-19. He has been vaccinated. He has no abdominal pain no bright red blood per rectum or melena. He otherwise has been enjoying good health particularly over the past year. [facility] Medical History (Updated 05/29/21 @ 08:[address] Douglas Renner MD) Alcohol use Arthritis Back pain BiPAP (biphasic positive airway pressure) dependence Cardiology follow-up encounter Cirrhosis Depression Diverticulitis Essential (primary) hypertension Hemochromatosis Hereditary hemochromatosis Hyperlipidemia Hypertension Leg cramps Meniere disease Non-smoker Obesity MAURI (obstructive sleep apnea) Paroxysmal atrial flutter Vertigo Wears dentures Wears hearing aid Wears partial dentures Home Medications lucwlkeb-dsw-OK-lycopen-lutein 1 ea PO DAILY 05/22/14 [History Last Taken Unknown] meloxicam 15 mg tablet 15 mg PO DAILY 05/09/19 [History Last Taken Unknown] losartan 100 mg tablet 100 mg PO DAILY #90 tab 01/29/20 [Rx Last Taken 05/29/21] Cholecalciferol (Vitamin D3) [Vitamin D3] 1 cap PO DAILY 04/30/20 [History Last Taken Unknown] hydrochlorothiazide 25 mg PO DAILY 04/30/20 [History Last Taken Unknown] sertraline 100 mg tablet 100 mg PO DAILY tab 03/19/21 [History Last Taken Unknown] Allergy/AdvReac Type Severity Reaction Status Date / Time Penicillins [PCN] Allergy Severe Hives Verified 05/29/21 07:18 nabumetone [From Relafen] Allergy Unknown Verified 05/29/21 07:18 ezetimibe [From Zetia] AdvReac Intermediate Pain in Verified 05/29/21 07:18 joints Ikangsf-UYJ-OuN Reductase AdvReac Unknown Verified 05/29/21 07:18 Inhibitor [Pfurdpt-Kpe-Hmc Reductase Inhibitor] Family History Mother COPD (chronic obstructive pulmonary disease) Father Heart disease Surgical History (Updated 05/26/21 @ 16:01 by Christy Gentile) History of appendectomy History of back surgery History of brain shunt History of cardioversion (06/11/19) History of colon resection History of eye surgery History of hernia repair History of hip replacement, total History of liver biopsy History of vasectomy Hx of left cataract extraction Hx of right cataract extraction Social History Smoking Status: Never smoker ROS Constitutional Constitutional: Reports systems reviewed and no addt'l complaints, except as documented Cardiovascular Cardiovascular: Denies chest pain Respiratory/Chest Respiratory/Chest: Denies shortness of breath at rest Gastrointestinal Gastrointestinal: Denies abdominal pain, change in bowel habits, hematochezia or melena Vital Signs Vital Signs Vital Signs: 05/29/21 07:21 Temperature 97.2 F L Temperature Source Temporal Pulse Rate 74 Respiratory Rate 16 Respiratory Pattern Normal Blood Pressure 163/102 H Blood Pressure Mean 122 Blood Pressure Source Monitor Blood Pressure Position Sitting Blood Pressure Location Left Arm Pulse Ox 99 Oxygen Delivery Method Room Air Weight Weight: 271 lb 2.697 oz Body Mass Index (BMI) 34.8 Physical Exam Const alert, oriented x3 and no apparent distress General Appearance: cooperative and comfortable Eyes General Eye: normal appearance of both eyes Neck General: normal visual inspection Chest inspection of chest normal Resp Effort and Inspection: able to speak in complete sentences and symmetric chest movement Auscultation: clear to auscultation bilaterally Cardio regular rate and regular rhythm GI soft to palpation, non-tender and non-distended Extremity no calf tenderness Neuro oriented x3 Psych thought process normal Assessment & Plan Assessment/Plan (1) Personal history of colonic polyps: PLAN: The patient presents via open access today. I propose for him a colonoscopy with possible biopsy or polypectomy as indicated. He is aware of the technique, benefit, risk, alternatives. He has had an opportunity to ask and have questions answered. We will proceed as noted. Douglas Renner M.D., F.A.C.S.
[2021-05-29] MEDS: Midazolam 5 MG/ML Syringe (08:35)
--- NOTE | 2021-05-29 08:38 | OP.COLON_ITS ---
Patient Name: Bernabe Johnson Procedure Date: 05/29/2021 8:06 AM Date of : 1950 Age: 70 Procedure: Colonoscopy Indications: High risk colon cancer surveillance: Personal history of colonic polyps Providers: Douglas Renner MD Medicines: Midazolam 4 mg IV, Meperidine 100 mg IV Patient Profile: Last Colonoscopy: 5 years ago. Complications: No immediate complications. Procedure: Pre-Anesthesia Assessment: - Prior to the procedure, a History and Physical was performed, and patient medications and allergies were reviewed. The patient's tolerance of previous anesthesia was also reviewed. The risks and benefits of the procedure and the sedation options and risks were discussed with the patient. All questions were answered, and informed consent was obtained. Prior Anticoagulants: The patient has taken no previous anticoagulant or antiplatelet agents. ASA Grade Assessment: II - A patient with mild systemic disease. After reviewing the risks and benefits, the patient was deemed in satisfactory condition to undergo the procedure. After I obtained informed consent, the scope was passed under direct vision. Throughout the procedure, the patient's blood pressure, pulse, and oxygen saturations were monitored continuously. The colonoscope was introduced through the anus and advanced to the cecum, identified by appendiceal orifice and ileocecal valve. The colonoscopy was performed without difficulty. The patient tolerated the procedure well. The quality of the bowel preparation was good. The ileocecal valve and the appendiceal orifice were photographed. Moderate Sedation: Moderate (conscious) sedation was personally administered by the endoscopist. The following parameters were monitored: oxygen saturation, heart rate, blood pressure, and response to care. Total physician intraservice time was 15 minutes. Scope In: 8:19:25 AM Scope Withdrawal Time 0 hours 8 minutes 12 seconds Scope Out: 8:32:40 AM Total Procedure Duration Time 0 hours 13 minutes 15 seconds Findings: The digital rectal exam findings include non-thrombosed internal hemorrhoids and internal hemorrhoids that prolapse with straining, but spontaneously regress to the resting position (Grade II). A 6 mm polyp was found in the rectum. The polyp was sessile. The polyp was removed with a hot snare. Resection and retrieval were complete. There was evidence of a prior end-to-end colo-colonic anastomosis in the proximal rectum. This was patent. The exam was otherwise without abnormality. Impression: - Non-thrombosed internal hemorrhoids and internal hemorrhoids that prolapse with straining, but spontaneously regress to the resting position (Grade II) found on digital rectal exam. - One 6 mm polyp in the rectum, removed with a hot snare. Resected and retrieved. - Patent end-to-end colo-colonic anastomosis. - The examination was otherwise normal. Recommendation: - Discharge patient to home. - Resume previous diet. - Continue present medications. - Repeat colonoscopy in 5 years for surveillance based on pathology results. - Telephone my office for pathology results in 1 week. Procedure Code(s): --- Professional --- 20578, Colonoscopy, flexible; with removal of tumor(s), polyp(s), or other lesion(s) by snare technique 33588, 59, Moderate sedation services provided by the same physician or other qualified health urgent care physician performing the diagnostic or therapeutic service that the sedation supports, requiring the presence of an independent trained observer to assist in the monitoring of the patient's level of consciousness and physiological status; initial 15 minutes of intraservice time, patient age 5 years or older Diagnosis Code(s): --- Professional --- Z86.010, Personal history of colonic polyps K64.1, Second degree hemorrhoids K62.1, Rectal polyp Z98.0, Intestinal bypass and anastomosis status CPT copyright 2017 [employer]. All rights reserved. The codes documented in this report are preliminary and upon human resources executive assistant review may be revised to meet current compliance requirements. Douglas Renner MD 05/29/2021 8:38:10 AM This report has been signed electronically. Number of Addenda: 0 Note Initiated On: 05/29/2021 8:06 AM
--- NOTE | 2021-05-29 08:39 | OP.CCLET_ITS ---
05/29/[address] [facility] [place] [address] Re : Colonoscopy procedure for Bernabe Johnson Dear Dr. Alexander This procedure was performed on Saturday, May 29, 2021. My impressions and recommendations are as follows: Impressions : - Non-thrombosed internal hemorrhoids and internal hemorrhoids that prolapse with straining, but spontaneously regress to the resting position (Grade II) found on digital rectal exam. - One 6 mm polyp in the rectum, removed with a hot snare. Resected and retrieved. - Patent end-to-end colo-colonic anastomosis. - The examination was otherwise normal. Recommendations : - Discharge patient to home. - Resume previous diet. - Continue present medications. - Repeat colonoscopy in 5 years for surveillance based on pathology results. - Telephone my office for pathology results in 1 week. My findings are described in the full procedure note, which is enclosed. If I can be of further assistance, please feel free to contact me at Doctor phone number(s): Work: . Sincerely, Douglas Renner MD 05/29/2021 8:38:10 AM This report has been signed electronically.
== END 2021-05-29 09:22 ==
LOC: EN 06:52 → AC 06:53
PROVIDERS: PCP Family Medicine; Referring Provider Family Medicine; Visit Provider Surgery
PROC: 0DJD8ZZ Inspection of Lower Intestinal Tract, Via Natural or Artificial Opening Endoscopic (ICD-10-PCS; CPT 45378; principal; 2021-05-29 07:55)
DX: Z12.11 Encounter for screening for malignant neoplasm of colon (principal); Z86.010 Personal history of colon polyps; K64.8 Other hemorrhoids; K62.1 Rectal polyp; M19.90 Unspecified osteoarthritis, unspecified site; I10 Essential (primary) hypertension; E78.5 Hyperlipidemia, unspecified; E83.110 Hereditary hemochromatosis; G47.33 Obstructive sleep apnea (adult) (pediatric); F41.9 Anxiety disorder, unspecified; F32.9 Major depressive disorder, single episode, unspecified; I48.92 Unspecified atrial flutter; E66.9 Obesity, unspecified; Z98.0 Intestinal bypass and anastomosis status; Z79.899 Other long term (current) drug therapy
CPT/HCPCS: 45385; 88305; 99152; 99153; J7120

== ENCOUNTER → 2021-12-15 | Outpatient (CLI) | payer MEDICARE, OTHER, SELFPAY ==
--- NOTE | 2021-12-15 09:49 | US_ITS ---
STUDY: ABDOMINAL ULTRASOUND REASON FOR EXAM: Male, 71 years old. ABDOMINAL PAIN TECHNIQUE: Transabdominal ultrasound was performed with real-time and static sharpe scale imaging. COMPARISON: 17 FINDINGS: Liver: There is increased echogenicity consistent with fatty infiltration. The bile ducts are within normal limits. There is hepatic color flow. The direction of portal flow is hepatopetal. There is no demonstrated mass lesion. Gallbladder: Normal distended gallbladder. The gallbladder wall measures 2 mm. There is a negative sonographic Rutledge''s sign. There is no pericholecystic fluid. There are multiple echogenic structures within the gallbladder, consistent with multiple gallstones. Common Bile Duct (C.B.D.): The common bile duct measures ( in mm): 4 Pancreas: Normal size of the head and body of the pancreas. There is increased echogenicity of the pancreas. There is no demonstrated pancreatic mass or cyst. Spleen: There is splenomegaly. The spleen measures 17.2 cm. Right Kidney: Normal size of the right kidney. The right kidney measures 12 cm. .There is a normal cortex of the kidney. There is 29mm demonstrated renal cyst. No follow-up required. There is no right hydronephrosis. Left Kidney: Normal size of the left kidney. The left kidney measures 12.5 cm. . There is a normal cortex of the left kidney. There is no demonstrated renal mass or cyst. There is no left hydronephrosis. Aorta: 23 mm in maximal aortic diameter. I.V.C.: The IVC is patent. There is no ascites. US/Abdomen Complete IMPRESSION: Fatty liver. There is splenomegaly. Gallstones. Electronically Signed: Jerome Oakley MD at 16:39 EDT ,
== END | disposition home or self-care (01) ==
LOC: US 09:45
PROVIDERS: PCP Family Medicine; Referring Provider Nurse Practitioner Family; Visit Provider Nurse Practitioner Family
DX: E83.110 Hereditary hemochromatosis (principal); K76.0 Fatty (change of) liver, not elsewhere classified; K80.20 Calculus of gallbladder without cholecystitis without obstruction
CPT/HCPCS: 76700

== ENCOUNTER 2023-01-18 15:01 | Emergency (ER) | payer MEDICARE, OTHER, SELFPAY ==
[2023-01-18 15:02] VITALS: BP 128/84; PULSE 114; RESP 17; TEMP 36.1; O2SAT 92; BMI 36.5
--- NOTE | 2023-01-18 15:28 | EDS_ITS ---
HPI History of Present Illness Chief Complaint: Fatigue Informant: patient, spouse/S.O. and EMS Narrative Narrative: Woke up feeling fatigued today. A couple episodes of lightheadedness, and a couple episodes of sweating but no palpitations, chest discomfort, dyspnea, or neurologic symptoms. Checked his blood pressure/pulse at home, noticed that his blood pressure was high 140-150/100 or so, and his pulse was over 100 multiple checks. Went to the fire station and EMS did an EKG so that he was in atrial flutter and recommended he come to the emergency department. He states he had some type of dysrhythmia before, he saw Dr. Chin, had a cardioversion, and has been fine ever since, is not anticoagulated or on any AV joe reynaldo since then. No other history of heart disease. [facility] Medical History Acute otitis externa of left ear Acute pharyngitis, unspecified Alcohol use Arthritis Back pain BiPAP (biphasic positive airway pressure) dependence Cirrhosis Depression Diverticulitis Essential (primary) hypertension Hemochromatosis Hyperlipidemia Hypertension Leg cramps Meniere disease Non-smoker Obesity MAURI (obstructive sleep apnea) Paroxysmal atrial flutter Personal history of colonic polyps Vertigo Wears dentures Wears hearing aid Wears partial dentures Home Medications bcjnsucu-mvt-dqwnf acid 0.4 mg-lycopene 300 mcg-lutein 250 mcg tablet 1 ea PO DAILY SUPPLEMENT 05/22/14 [History Last Taken Unknown] losartan 100 mg tablet 100 mg PO DAILY #90 tabs 01/29/20 [Rx Last Taken 05/29/21] Cholecalciferol (Vitamin D3) [Vitamin D3] 1 cap PO DAILY 04/30/20 [History Last Taken Unknown] hydrochlorothiazide 25 mg tablet 25 mg PO DAILY 04/30/20 [History Last Taken Unknown] sertraline 100 mg tablet 100 mg PO DAILY 03/19/21 [History Last Taken Unknown] polyethylene glycol 400 0.25 % eye gel drops (Blink Gel Tears) 1 drp ophthalmic (eye) .QDAY PRN dry eye(s) 12/09/21 [History Last Taken Unknown] apixaban 5 mg tablet (Eliquis) 5 mg PO BID #60 tabs 01/18/23 [Rx Last Taken Unknown] metoprolol tartrate 50 mg tablet 50 mg PO BID #60 tabs 01/18/23 [Rx Last Taken Unknown] Allergy/AdvReac Type Severity Reaction Status Date / Time Penicillins [PCN] Allergy Severe Hives Verified 01/18/23 15:05 nabumetone [From Relafen] Allergy Unknown Verified 01/18/23 15:05 ezetimibe [From Zetia] AdvReac Intermediate Pain in Verified 01/18/23 15:05 joints Rlxlddh-CQA-KsS Reductase AdvReac Unknown Verified 01/18/23 15:05 Inhibitor [Uyxbacj-Uby-Nqr Reductase Inhibitor] Family History Mother COPD (chronic obstructive pulmonary disease) Father Heart disease Surgical History History of appendectomy History of back surgery History of brain shunt History of cardioversion (06/11/19) History of colon resection History of eye surgery History of hernia repair History of hip replacement, total History of liver biopsy History of vasectomy Hx of left cataract extraction Hx of right cataract extraction Social History Smoking Status: Never smoker alcohol intake: never ROS ROS ED Constitutional Constitutional ED: Reports fatigue and sweats; Denies chills or fever(s) Eyes Eyes: Denies change in vision or diplopia ENT ENT ED: Denies rhinorrhea or sore throat Cardiovascular Cardiovascular: Reports lightheadedness; Denies chest pain, orthopnea, palpitations, racing heartbeat or syncope Respiratory/Chest Respiratory/Chest: Denies cough, dyspnea, dyspnea on exertion or orthopnea Gastrointestinal Gastrointestinal: Denies abdominal pain, diarrhea, nausea or vomiting Genitourinary Genitourinary ED: Denies dysuria or hematuria Musculoskeletal Musculoskeletal: Denies back pain or neck pain Integumentary Denies abscess or rash Neurologic Neurologic: Denies headache(s), paresthesias or weakness Psychiatric Psychiatric: Denies anxiety or suicidal thoughts EXAM Physical Exam Const Vital Signs: 01/18/23 15:02 01/18/23 15:06 01/18/23 15:51 Temperature 97 F L Temperature Source Temporal Pulse Rate 114 H 86 Respiratory Rate 17 Respiratory Effort Normal Non-Labored Blood Pressure 128/84 H Blood Pressure Mean 98 Pulse Ox 92 Oxygen Delivery Method Room Air Positive well nourished and well developed General Appearance ED: well developed and NAD HEENT Reports moist mucous membranes normocephalic and atraumatic Eyes PERRL and EOMs intact bilaterally Neck full ROM and supple Resp normal respiratory effort and clear to auscultation bilaterally Cardio regular rate, regular rhythm and no murmurs GI non-tender and non-distended Auscultation: normoactive bowel sounds Palpation: soft Back/Spine no CVA tenderness General Back: other FROM Extremity normal to inspection General Extremety ED: Negative for edema, pulses abnormal or tenderness General Extremity: Negative for edema or pulses abnormal Neuro oriented x3, CN's II-XII intact bilaterally and no sensory deficits noted Sensorium / Orientation: awake and alert Motor Exam: strength 5/5 throughout Skin no rashes or lesions noted and no wounds MDM MDM MDM Narrative Medical decision making narrative: While performing laboratory work-up and EKG, confirming a flutter with mild RVR no acute injury pattern, patient was given IV Cardizem 20 mg, on reevaluation his heart rate is in the 80s he is still in atrial flutter, blood pressure stable 128/84. Patient is feeling well. Discussed with cardiology Dr. Chin, he recommends putting him on metoprolol 50 mg twice daily and have him follow-up as an outpatient, as well as anticoagulation given his [id number] 2 score of 2. History & Record Review Additional record(s) reviewed:: Prior outpatient record (Echocardiogram 2018, normal LV function, EF 60%.) Lab Data Attestation: I reviewed the patient's lab results. Labs: Laboratory Results - last 24 hr 01/18/23 15:10 WBC 8.5 RBC 5.04 Hgb 17.2 H Hct 46.9 MCV 93.1 MCH 34.1 H MCHC 36.7 H RDW Std Deviation 42.9 RDW Coeff of Rogelio 12.6 Plt Count 188 MPV 11.3 Immature Gran % (Auto) 0.500 Neut % (Auto) 70.8 H Lymph % (Auto) 19.3 [place] % (Auto) 7.8 Eos % (Auto) 1.1 Baso % (Auto) 0.5 Absolute Neuts (auto) 6.1 Absolute Lymphs (auto) 1.65 Nucleated RBC % 0 Sodium 136 Potassium 3.6 Chloride 105 Carbon Dioxide 24.0 Anion Gap 7 BUN 22 H Creatinine 1.05 Estim Creat Clear Calc 76.11 Est GFR (MDRD) Af Amer 90 Est GFR (MDRD) Non-Af 74 BUN/Creatinine Ratio 21.0 H Glucose 152 H Calcium 9.8 Troponin I High Sens 11 Rhythm Strip Rhythm Strip: Atrial flutter Rate: 110 Ectopy: None EKG Initial EKG: Attestation: I personally reviewed and interpreted this EKG as follows: Interpretation: No Acute Injury Pattern, Atrial Flutter and Non-Specific ST Changes Prior EKG tracings: available for review Prior: Unchanged Management Discussion w/another healthcare provider: Software Support Technician Discharge Plan Triage Chief Complaint: Fatigue ED Provider: Grover Lemons Dx/Rx/DC Orders Clinical Impression: Paroxysmal atrial flutter Instructions: ED Atrial Flutter Prescriptions: New metoprolol tartrate 50 mg tablet 50 mg PO BID Qty: 60 0RF Eliquis 5 mg tablet 5 mg PO BID Qty: 60 0RF Continued sertraline 100 mg tablet 100 mg PO DAILY losartan 100 mg tablet 100 mg PO DAILY Qty: 90 3RF Blink Gel Tears 0.25 % drops,gel 1 drp ophthalmic (eye) .QDAY PRN (Reason: dry eye(s)) faewftoe-rex-KQ-lycopen-lutein 1 EACH tablet 1 ea PO DAILY Patient Comments: suppliment hydrochlorothiazide 25 MG tablet 25 mg PO DAILY Cholecalciferol (Vitamin D3) [Vitamin D3] 5,000 UNIT capsule 1 cap PO DAILY Discontinued meloxicam 15 mg tablet 15 mg PO DAILY Primary Care Provider: Tres Alexander Referrals: Faustino Chin MD [Med Staff - Active Staff] - As soon as possible Tres Alexander DO [Primary Care Provider] - Disposition Disposition: Home, Self Care
--- NOTE | 2023-01-18 15:28 | EKG12_ITS ---
Test Reason : INCREASE HR Blood Pressure : / mmHG Vent. Rate : 114 BPM Atrial Rate : 264 BPM P-R Int : 000 ms QRS Dur : 084 ms QT Int : 306 ms P-R-T Axes : 253 038 -07 degrees QTc Int : 421 ms Atrial flutter with variable A-V block Junctional ST depression, probably normal Abnormal ECG Confirmed by MARE FREEMAN, HERMINIO ([id number]), subeditor NEY REILLY ([id number]) on 01/19/2023 2:25:01 PM Referred By: TANVIR/BB Confirmed By:HERMINIO GARVEY MD
[2023-01-18] MEDS: dilTIAZem 25 MG/5 ML Vial 20 MG IV BOLUS (15:37)
[2023-01-18 15:38] LABS: Absolute Lymphocyte Count 1.65 X10^3/uL (0.83-4.51); Absolute Neutrophil Count 6.1 X10^3/uL (2.0-7.7); Basophil# 0.04 X10^3/uL; Basophil% 0.5 % (0-1); Eosinophil# 0.09 X10^3/uL; Eosinophils% 1.1 % (0-5); Hematocrit 46.9 % (40-54); Hemoglobin 17.2 g/dL (13.0-16.5); Lymphocyte # 1.65 X10^3/ul (0.83-4.51); Lymphocyte % 19.3 % (19-41); Mean Corp Hgb Conc 36.7 g/dL (32-36); Mean Corpuscular Hgb 34.1 pg (27.0-32.0); Mean Corpuscular Volume 93.1 fL (80-94); Mean Platelet Vol. 11.3 fl (6.2-12.0); Monocyte# 0.67 X10^3/uL; Monocyte% 7.8 % (0-10); NRBC Flagged by Analyzer 0 % (0-5); Neutrophil # 6.05 X10^3/uL (2.7-7.7); Neutrophil % 70.8 % (47-70); Platelet Count 188 K/mm3 (150-450); RBC Distribution Width CV 12.6 % (11.6-14.6); RBC Distribution Width SD 42.9 fl (35.1-43.9); Red Blood Count 5.04 M/mm3 (4.6-6.2); White Blood Count 8.5 K/mm3 (4.4-11.0)
[2023-01-18 15:51] VITALS: PULSE 86
[2023-01-18 15:55] LABS: Anion Gap 7 (5-15); BUN 22 mg/dL (7-18); Calcium,Total 9.8 mg/dL (8.5-10.1); Chloride 105 mmol/L (98-107); Creatinine, Serum 1.05 mg/dL (0.70-1.30); EST Glomerular Filtration Rate 74 mL/min (>60); Est Glom Filt Rate - Afr Amer 90 mL/min (>60); Estimated Creatinine Clearance 76.11 ml/min; Glucose 152 mg/dL (74-106); Potassium 3.6 mmol/L (3.5-5.1); Sodium Level 136 mmol/L (136-145); Troponin-I HS 11 pg/mL (3.0-78.0)
[2023-01-18] MEDS: Metoprolol Tartrate 50 MG Tablet PO (17:10)
[2023-01-18 17:13] VITALS: PULSE 85; RESP 18; O2SAT 95
== END 2023-01-18 17:13 | disposition home or self-care (01) ==
PROVIDERS: Emergency Provider Emergency Medicine; PCP Family Medicine; Visit Provider Emergency Medicine
DX: I48.92 Unspecified atrial flutter (principal); I10 Essential (primary) hypertension; G47.33 Obstructive sleep apnea (adult) (pediatric); Z79.899 Other long term (current) drug therapy
CPT/HCPCS: 80048; 84484; 85025; 93005; 96361; 96374; 99285; J7040; A4216

== ENCOUNTER → 2023-01-28 | Outpatient (CLI) | payer MEDICARE, OTHER, SELFPAY ==
--- NOTE | 2023-01-28 08:49 | ECHOD_ITS ---
Reason For Study: AFIB/FLUTTER Procedure This was a 2D Doppler, Color Flow transthoracic echocardiogram. Exam performed in department. Left Ventricle Normal LV size. Left ventricular systolic function is normal. The estimated ejection fraction is 55 %. No regional wall motion abnormalities noted. Right Ventricle Normal RV size. Normal systolic function. Atria Normal left atrium. Normal right atrium. Mitral Valve Normal mitral valve. Tricuspid Valve Normal tricuspid valve. Mild tricuspid valve insufficiency. Pulmonary artery systolic pressure is 30 mmHg. Aortic Valve Normal aortic valve. Pulmonic Valve Normal pulmonic valve. Great Vessels Normal aortic root. Pericardium/Pleural No pericardial effusion. MMode/2D Measurements & Calculations LVIDd: 4.5 cm IVSd: 1.2 cm Ao root diam: 3.6 cm LVIDs: 2.9 cm LVPWd: 1.1 cm FS: 36.6 % LAV(MOD-bp): 75.0 ml LA A4 area: 22.3 cm2 LA dimension(2D): 4.0 cm LAV(MOD-bp) Indexed: 29.9 ml/m2 LAV(MOD-sp2): 73.5 ml LAV(MOD-sp4): 73.8 ml Doppler Measurements & Calculations MV E max deisy: 91.5 cm/sec Ao V2 max: 115.4 cm/sec LV V1 max: 85.3 cm/sec Ao max P.3 mmHg LV V1 max P.9 mmHg Ao V2 mean: 83.4 cm/sec LV V1 mean P.7 mmHg Ao mean P.1 mmHg LV V1 mean: 62.5 cm/sec Ao V2 VTI: 22.9 cm LV V1 VTI: 17.1 cm AV (velocity ratio): 0.75 PA V2 max: 82.5 cm/sec TR max deisy: 251.4 cm/sec PA V2 mean: 63.6 cm/sec TR max P.3 mmHg ECHO/Echo Complete Interpretation Summary Normal LV size. Left ventricular systolic function is normal. The estimated ejection fraction is 55 %. Pulmonary artery systolic pressure is 30 mmHg. Ordering Physician: Latoya Wadsworth Referring Physician: Tres Alexander Performed By: Leslee Pfeiffer, SHANDA, RVT
== END | disposition home or self-care (01) ==
LOC: CVS 08:49
PROVIDERS: PCP Family Medicine; Referring Provider Physician Assistant Medical; Visit Provider Physician Assistant Medical
DX: E83.110 Hereditary hemochromatosis (principal); I48.92 Unspecified atrial flutter; R53.83 Other fatigue
CPT/HCPCS: 93306

== ENCOUNTER → 2023-03-09 | Day surgery (SDC) | payer MEDICARE, OTHER, SELFPAY ==
--- NOTE | 2023-02-13 08:46 | HP.PCM_ITS ---
History and Physical Date of Admission: 03/09/23 Bernabe Johnson is a 72 year-old gentleman that presents here today for cardioversion. He has a history of atrial flutter with a cardioversion in 2017 and 2019. He also has a history of hypertension and hyperlipidemia. He also does have a history of hemochromatosis and does follow with hematology. Pt was in the ER on 01/18/2023. He notes that in the morning he woke up and just did not feel right. He felt like his balance was a little off. His BP was elevated, HR was elevated. He did go to the fire department, they had recommended he come to the ER to be seen. He notes that over the last few weeks he has been fatigued. He does not have any chest pain/heaviness. He does not have any worsening SOB. He does not feel his aflutter. He does not have any lightheadedness/dizziness. While in the ER he was started on Eliquis for his atrial flutter, he was started on Eliquis. He was also started on metoprolol at 50 mg BID. Intake Vital Signs: See EMR Intake Visit Reasons: DCCV Healthcare Management Required: No Is patient in pain?: No Allergies Penicillins [PCN] Allergy (Severe, Verified 01/20/23 10:29) Hives nabumetone [From Relafen] Allergy (Verified 01/20/23 10:29) Unknown ezetimibe [From Zetia] Adverse Reaction (Intermediate, Verified 01/20/23 10:29) Pain in joints Mmwlhzg-TXK-CsE Reductase Inhibitor [Lhogzvv-Lyu-Mck Reductase Inhibitor] Adverse Reaction (Verified 01/20/23 10:29) Unknown Medications See EMR [facility] Medical History Acute otitis externa of left ear Acute pharyngitis, unspecified Alcohol use Arthritis Back pain BiPAP (biphasic positive airway pressure) dependence Cirrhosis Depression Diverticulitis Essential (primary) hypertension Hemochromatosis Hyperlipidemia Hypertension Leg cramps Meniere disease Non-smoker Obesity MAURI (obstructive sleep apnea) Paroxysmal atrial flutter Personal history of colonic polyps Vertigo Wears dentures Wears hearing aid Wears partial dentures Surgical History History of appendectomy History of back surgery History of brain shunt History of cardioversion (06/11/19) History of colon resection History of eye surgery History of hernia repair History of hip replacement, total History of liver biopsy History of vasectomy Hx of left cataract extraction Hx of right cataract extraction Family History Mother COPD (chronic obstructive pulmonary disease)Father Heart disease Social History Smoking Status: Never smoker alcohol intake: never ROS Const Const: Positive for fatigue; Negative for weakness, headache(s), frequent falls, difficulty sleeping or excessive sweating Eyes Eyes: Negative for loss of peripheral vision, transient loss of vision, blurry vision, double vision or tunnel vision ENT ENT: Negative for headache(s), dizziness, Nosebleed/epistaxis or balance problems Cardio Chest Pain: No Palpitations: No Edema: None Muscle aches with walking: None Resp Respiratory: Negative for SOB with activity, SOB at rest, SOB orthopnea\SOB lying down, Cough or paroxysmal nocturnal dyspnea GI GI: Negative nausea, vomiting, heartburn or black,tarry stools : Negative for hematuria Musc Musc: Negative for muscle aches/ myalgia, muscle weakness, joint pain or balance problems Skin Skin: Negative non-healing lesions, rash or unusual bruising Neuro Neuro: Negative for dizziness, lightheadedness, near syncope, syncope, orthostatic symptoms, frequent falls, headache(s), weakness, confusion, memory loss, blurry vision, double vision, vertigo or lack of coordination Dwight Hematologic/Lymphatic: Negative for easy bleeding or easy bruising Endo Endo: Positive for fatigue; Negative for excessive sweating, flushing or increased thirst/drinking Psych Psych: Negative for anxiety or depression Allergy Allergy/Immunology: Negative for hives and Negative for rash Cardiology Exam Const Appearance: cooperative, healthy appearing, comfortable, no acute distress and well developed Orientation: alert, awake and oriented x3 Head Head: normal to inspection Ears: hearing grossly normal bilaterally Nose: external nose normal Face and Sinus: face symmetric Mouth: oral mucosae normal, lip normal and moist mucous membranes Eyes General: appearance normal, both eyes and all related structures Eyelids: eyelids normal Conjunctivae: conjunctivae normal Pupils: PERRL EOM: EOM intact bilaterally Neck Neck: normal visual inspection and trachea midline; Negative no JVD Carotids: Negative bruit Chest Chest inspection: normal inspection of the chest Auscultation: Bilateral: Clear to Auscultation Cardio Palpation: normal PMI Rate: regular rate Rhythm: irregularly irregular Heart sounds: S1 normal and S2 normal; Negative rub, gallop or murmur GI GI: soft, no hepatosplenomegaly and bowel sounds present Neuro General: patient alert, patient awake, patient oriented x3 and CN's II-XI intact bilaterally Extremities Pulses: Normal: Right Posterior Tibial Pulse, Left Posterior Tibial Pulse, Right Radial Pulse and Left Radial Pulse Lower Extremity Edema: None: Bilateral Psych Psychological: normal affect Supplemental Info Echocardiogram from 01/28/2023: Interpretation Summary Normal LV size. Left ventricular systolic function is normal. The estimated ejection fraction is 55 %. Pulmonary artery systolic pressure is 30 mmHg. ECHOCARDIOGRAM 06/05/2019 Interpretation Summary Normal LV size. Left ventricular systolic function is normal. The estimated ejection fraction is 60 %. Unable to assess diastolic dysfunction due to arrhythmia. Bubble contrast study negative for right to left interatrial shunt. Assessment and Plan Assessment and Plan (1) Paroxysmal atrial flutter: Status: Chronic Plan: Patient has returned to atrial flutter. Currently he is not symptomatic as his heart rate is controlled. He will continue with his metoprolol. He also was started on Eliquis. He will proceed with cardioversion. If he has any further recurrence can discuss an EP referral for possible ablation. (2) Essential (primary) hypertension: Status: Chronic Plan: Blood pressure is well controlled on current medications, we do not recommend any changes at this time. (3) Hyperlipidemia: Status: Chronic Plan: Laboratory Tests 11/13/20 08:58 Cholesterol 217 H LDL Cholesterol 137 H HDL Cholesterol 46 Pt is not on anything. He is intolerant to medications. Will monitor with diet. (4) Fatigue: Status: Acute Plan: It is believed that his fatigue is related to his atrial flutter. To assess LV size and atrium size, underwent an echocardiogram 01/28/2023 that showed ejection fraction 55% and normal left and right atrium.
[2023-03-07 16:08] LABS: Absolute Lymphocyte Count 1.44 X10^3/uL (0.83-4.51); Absolute Neutrophil Count 5.1 X10^3/uL (2.0-7.7); Basophil# 0.03 X10^3/uL; Basophil% 0.4 % (0-1); Eosinophil# 0.23 X10^3/uL; Eosinophils% 3.1 % (0-5); Hemoglobin 15.6 g/dL (13.0-16.5); Lymphocyte # 1.44 X10^3/ul (0.83-4.51); Lymphocyte % 19.2 % (19-41); Mean Corp Hgb Conc 36.3 g/dL (32-36); Mean Corpuscular Hgb 34.1 pg (27.0-32.0); Mean Corpuscular Volume 93.9 fL (80-94); Mean Platelet Vol. 11.4 fl (6.2-12.0); Monocyte# 0.67 X10^3/uL; Monocyte% 8.9 % (0-10); NRBC Flagged by Analyzer 0 % (0-5); Neutrophil # 5.11 X10^3/uL (2.7-7.7); Neutrophil % 68.1 % (47-70); Platelet Count 167 K/mm3 (150-450); RBC Distribution Width CV 13.1 % (11.6-14.6); RBC Distribution Width SD 44.7 fl (35.1-43.9); Red Blood Count 4.58 M/mm3 (4.6-6.2); White Blood Count 7.5 K/mm3 (4.4-11.0)
[2023-03-07 16:53] LABS: Anion Gap 9 (5-15); BUN 21 mg/dL (7-18); BUN/Creat Ratio 15.4 RATIO (10-20); Calcium,Total 9.5 mg/dL (8.5-10.1); Chloride 102 mmol/L (98-107); Creatinine, Serum 1.36 mg/dL (0.70-1.30); EST Glomerular Filtration Rate 55 mL/min (>60); Est Glom Filt Rate - Afr Amer 67 mL/min (>60); Glucose 188 mg/dL (74-106); Potassium 3.7 mmol/L (3.5-5.1); Sodium Level 137 mmol/L (136-145)
[2023-03-08 07:53] VITALS: BMI 36.8
--- NOTE | 2023-03-09 10:41 | EKG12_ITS ---
Test Reason : DCCV Blood Pressure : / mmHG Vent. Rate : 056 BPM Atrial Rate : 056 BPM P-R Int : 182 ms QRS Dur : 078 ms QT Int : 412 ms P-R-T Axes : 031 045 046 degrees QTc Int : 397 ms Sinus bradycardia Otherwise normal ECG No previous ECGs available Confirmed by MARE FREEMAN, FAUSTINO ([id number]), non linear editor NEY REILLY ([id number]) on 04/06/2023 10:32:48 AM Referred By: Faustino Chin Confirmed By:FAUSTINO CHIN MD
== END | disposition home or self-care (01) ==
LOC: CLSP 10:55
PROVIDERS: Physician Assistant Medical; PCP Family Medicine; Referring Provider Internal Medicine Cardiovascular Disease; Visit Provider Internal Medicine Cardiovascular Disease
DX: I48.92 Unspecified atrial flutter (principal); I10 Essential (primary) hypertension; E78.5 Hyperlipidemia, unspecified; R53.83 Other fatigue; G47.33 Obstructive sleep apnea (adult) (pediatric); Z79.01 Long term (current) use of anticoagulants; Z79.899 Other long term (current) drug therapy
CPT/HCPCS: 36415; 80048; 85025; 93005

== ENCOUNTER → 2023-03-22 | Outpatient (CLI) | payer MEDICARE, OTHER, SELFPAY ==
[2023-03-22 09:22] LABS: Cholesterol 180 mg/dL (200); High Density Lipoprotein 43 mg/dL; Triglycerides 289 mg/dL; Very Low Density Lipoprotein 58 mg/dL (5-40)
[2023-03-22 09:41] LABS: Microalbumin,Random Urine 19.1 mg/L (NO RANGE EST.); Microalbumin:Creatinine Ratio 13.1 mg/g CRE (<30 mg/g CRE)
[2023-03-22 10:11] LABS: Hemoglobin A1c 7.5 % (3.8-5.6)
== END | disposition home or self-care (01) ==
LOC: LAB 07:45
PROVIDERS: PCP Family Medicine; Referring Provider Family Medicine; Visit Provider Family Medicine
DX: E11.9 Type 2 diabetes mellitus without complications (principal)
CPT/HCPCS: 36415; 80061; 82043; 82570; 83036

== ENCOUNTER → 2023-06-14 | Outpatient (CLI) | payer MEDICARE, OTHER, SELFPAY ==
--- NOTE | 2023-06-14 07:12 | US_ITS ---
STUDY: ABDOMINAL ULTRASOUND - RIGHT UPPER QUADRANT REASON FOR VISIT: Male, 72 years old F/U HEMOCHROMATOSIS TECHNIQUE: Ultrasound evaluation of the right upper quadrant was performed with real-time and static sharpe-scale imaging. TECHNICAL QUALITY: Adequate. COMPARISON: Comparison is made with prior study dated December 15, 2021. FINDINGS: Liver: The liver measures 18.6 cm. There is increased echogenicity consistent with fatty infiltration. The bile ducts are within normal limits. There is hepatic color flow. The direction of portal flow is hepatopetal. There is no demonstrated mass lesion. Gallbladder: Normal distended gallbladder. The gallbladder wall measures 2.0 mm. There is a negative sonographic Rutledge''s sign. There is no pericholecystic fluid. There is a solitary echogenic gallstone within the gallbladder. The gallstone measures 5 mm x 4 mm. Common Bile Duct (C.B.D.): The common bile duct measures 4 mm. Pancreas: Normal size of the head, body and tail of the pancreas. There is normal echogenicity of the pancreas. There is no demonstrated pancreatic mass or cyst. Right Kidney: Normal size of the right kidney. The right kidney measures 13.5 cm x 7.2 cm x 7 cm. Normal renal cortex. The right cortex measures 2.3 cm. There is a 3.4 cm x 3.6 x 2.7 cm right renal cyst. There is no right hydronephrosis. IMPRESSION: Mild hepatomegaly. Fatty infiltration of the liver. Solitary gallstone. Small right renal cyst. Electronically Signed: Devan Ny MD at 13:05 EST , STUDY: ABDOMINAL ULTRASOUND - ELASTOGRAPHY REASON FOR VISIT: Male, 72 years old. Hemochromatosis. TECHNIQUE: Liver stiffness measurements were obtained on a [employer] RS 85 ultrasound machine using a CA 1-7 probe following the SRU guidelines. 3 measurements were obtained using a 2-D-SWE method. TheIQR/M was 20% suggesting a quality data set. TECHNICAL QUALITY: Adequate. COMPARISON: Comparison is made with prior study done earlier in the day. FINDINGS: Liver: Fatty infiltration of the liver. Median liver stiffness measured 7.7 kPa. Abdomen: There is no demonstrated mass lesion. US/Abdomen Limited IMPRESSION: Liver stiffness measures 7.7 kPa compatible with F2-F3 (Mild to moderate liver fibrosis) Metavir score. Electronically Signed: Devan Ny MD at 13:06 EST ,
== END | disposition home or self-care (01) ==
LOC: US 07:12
PROVIDERS: PCP Family Medicine; Referring Provider Internal Medicine Medical Oncology; Visit Provider Internal Medicine Medical Oncology
DX: E83.110 Hereditary hemochromatosis (principal); R79.89 Other specified abnormal findings of blood chemistry
CPT/HCPCS: 76705; 76981

== ENCOUNTER → 2023-07-11 | Outpatient (CLI) | payer MEDICARE, OTHER, SELFPAY ==
[2023-07-11 20:48] LABS: Hemoglobin A1c < 3.8 % (3.8-5.6)
== END | disposition home or self-care (01) ==
LOC: LAB 09:32
PROVIDERS: PCP Family Medicine; Referring Provider Urology; Visit Provider Urology
DX: R35.0 Frequency of micturition (principal); Z79.899 Other long term (current) drug therapy
CPT/HCPCS: 36415; 83036

== ENCOUNTER 2023-08-01 13:31 | Emergency (ER) | payer MEDICARE, OTHER, SELFPAY ==
[2023-08-01 13:32] VITALS: BP 180/95; PULSE 52; RESP 16; TEMP 36; O2SAT 100; BMI 35.9
--- NOTE | 2023-08-01 13:52 | RAD_ITS ---
STUDY: X-RAY - UNILATERAL RIBS ( LEFT ) WITH CHEST REASON FOR EXAM: Male, 72 years old. Left rib pain following a recent fall. TECHNIQUE - RIBS: 4 view(s) of the ribs. TECHNIQUE - CHEST: Single PA view of the chest. COMPARISON: Comparison is made with prior chest radiograph dated May 09, 2019. FINDINGS - RIBS: Nondisplaced transverse fracture of the left ninth 10th and 11th ribs. FINDINGS - CHEST: Stable increased markings in both lungs worse in the right upper lobe and left lower lobe suggestive of scarring. There is no demonstrated pleural abnormality. Normal size heart. Normal mediastinum and leta. Normal visualized pulmonary arteries. There is atherosclerotic tortuosity of the aortic arch and descending thoracic aorta. There are diffuse degenerative changes of the visualized thoracic spine. Normal visualized ribs, clavicles, and shoulders. Kidney stones in the left kidney. RAD/Ribs Uni Min 3V w/PA Chest IMPRESSION: RIBS: Nondisplaced fractures of the left ninth 10th and 11th ribs. Stable scarring as described. CHEST: Normal x-ray examination of the chest. Electronically Signed: Devan Ny MD at 14:14 EST ,
[2023-08-01 17:42] VITALS: BP 176/85; PULSE 85; RESP 14; O2SAT 96; O2SAT 97
--- NOTE | 2023-08-01 17:45 | EX.ED.GENINJ ---
HPI History of Present Illness Chief Complaint: Chest Other Informant: patient and spouse/S.O. Narrative Narrative: Patient presents with left-sided rib pain after a fall yesterday morning. This is a repeat dictation due to a loss dictation because of dragon. There are features and details that may have been placed in the first dictation that are missed in the second. Patient slipped about 1:30 in the morning on Tuesday. He was walking downstairs to urinate at night which she commonly has to do. This was a mechanical fall. He landed on his left ribs and elbow and did not hit his head. He is on Eliquis. He states the only thing that really hurts is his left posterior ribs. He states he is not short of breath. He can even take a deep breath most of the time. He just has sharp pain if he moves or twists a certain way. He is eating and drinking well. He is urinating normally. No blood in the urine. Not lightheaded or dizzy. [facility] Medical History Acute otitis externa of left ear Acute pharyngitis, unspecified Alcohol use Arthritis Back pain BiPAP (biphasic positive airway pressure) dependence Cirrhosis Depression Diverticulitis Essential (primary) hypertension Hemochromatosis Hyperlipidemia Hypertension Leg cramps Meniere disease Non-smoker Obesity MAURI (obstructive sleep apnea) Paroxysmal atrial flutter Personal history of colonic polyps Vertigo Wears dentures Wears hearing aid Wears partial dentures Home Medications lrtdogsv-ruo-odtyg acid 0.4 mg-lycopene 300 mcg-lutein 250 mcg tablet 1 ea PO DAILY SUPPLEMENT 05/22/14 [History Last Taken 03/09/23] losartan 100 mg tablet 100 mg PO DAILY #90 tabs 01/29/20 [Rx Last Taken 03/09/23] Cholecalciferol (Vitamin D3) [Vitamin D3] 1 cap PO DAILY 04/30/20 [History Last Taken 03/09/23] hydrochlorothiazide 25 mg tablet 25 mg PO DAILY 04/30/20 [History Last Taken Unknown] sertraline 100 mg tablet 100 mg PO DAILY 03/19/21 [History Last Taken 03/09/23] polyethylene glycol 400 0.25 % eye gel drops (Blink Gel Tears) 1 drp ophthalmic (eye) .QDAY PRN dry eye(s) 12/09/21 [History Last Taken 03/09/23] meloxicam 15 mg tablet 15 mg PO DAILY 01/20/23 [History Last Taken 03/09/23] metoprolol tartrate 50 mg tablet 50 mg PO BID #180 tabs 02/02/23 [Rx Last Taken 03/09/23] apixaban 5 mg tablet (Eliquis) 5 mg PO BID #180 tabs 03/01/23 [Rx Last Taken 03/09/23] oxycodone-acetaminophen 5 mg-325 mg tablet 1 tab PO Q6H PRN PRN Pain 3 days #12 TABLETS 08/01/23 [Rx Last Taken Unknown] Allergy/AdvReac Type Severity Reaction Status Date / Time Penicillins [PCN] Allergy Severe Hives Verified 06/01/23 14:42 nabumetone [From Relafen] Allergy Unknown Verified 06/01/23 14:42 ezetimibe [From Zetia] AdvReac Intermediate Pain in Verified 06/01/23 14:42 joints Nybygtl-QAA-JnU Reductase AdvReac Unknown Verified 06/01/23 14:42 Inhibitor [Klqwozt-Csh-Hkx Reductase Inhibitor] Family History Mother COPD (chronic obstructive pulmonary disease) Father Heart disease Surgical History History of appendectomy History of back surgery History of brain shunt History of cardioversion (06/11/19) History of colon resection History of eye surgery History of hernia repair History of hip replacement, total History of liver biopsy History of vasectomy Hx of left cataract extraction Hx of right cataract extraction Social History Smoking Status: Never smoker alcohol intake: never ROS ROS ED Constitutional Constitutional ED: Denies chills or fever(s) Eyes Eyes: Denies change in vision ENT ENT ED: Denies rhinorrhea Cardiovascular Cardiovascular: Reports chest pain; Denies palpitations or racing heartbeat Respiratory/Chest Respiratory/Chest: Denies cough or dyspnea Gastrointestinal Gastrointestinal: Denies abdominal pain, melena, nausea or vomiting Genitourinary Genitourinary ED: Denies hematuria Musculoskeletal Musculoskeletal: Reports other Details: See history of present illness. Integumentary Reports Abrasions Neurologic Neurologic: Denies headache(s), paresthesias or weakness Hematologic/Lymphatic Hematologic/Lymphatic: Reports easy bleeding and easy bruising Allergic/Immunologic Allergic/Immunologic ED: Denies urticaria EXAM Physical Exam Narrative Exam Narrative: CONSTITUTIONAL: Patient is nontoxic in appearance. The patient looks comfortable. Work of breathing looks normal. HEENT: No notable trauma. Mucous membranes moist. EYES: No conjunctival injection. No proptosis. NECK:No JVD. No stridor. CARDIOVASCULAR: Regular rate. Regular rhythm. No notable murmur. No JVD. Tones are not muffled and peripheral pulses are normal. RESPIRATORY: There is a small superficial skin abrasion on the left posterior ribs. There is tenderness in this area. But I do not feel a step-off. There is no crepitance. No subcu air. But this area is where he has tenderness. If he moves or twists it hurts. GASTROINTESTINAL: Not distended. Bowel sounds are normal. No tenderness. No guarding. No rebound. No palpable mass. No bruit is heard. Overall very benign abdomen. GENITOURINARY: No tenderness over the bladder. No CVA tenderness. MUSCULOSKELETAL: Slight contusion to posterior elbow but there is no pain with range of motion. NEUROLOGICAL: Patient is alert and appropriate. No focal deficit noted. SKIN: Very slight abrasions and contusions. PSYCHIATRIC: Patient is calm. Mood is appropriate. Const Vital Signs: 08/01/23 13:32 08/01/23 17:42 08/01/23 17:45 Temperature 96.8 F L Temperature Source Temporal Pulse Rate 52 L 85 Respiratory Rate 16 14 Respiratory Effort Normal Non-Labored Blood Pressure 180/95 H 176/85 H Blood Pressure Mean 123 115 Pulse Ox 100 96 Oxygen Delivery Method Room Air MDM MDM MDM Narrative Medical decision making narrative: My independent interpretation of the patient's 5 view x-ray of the ribs do show fractures and final reading is nondisplaced fractures of left ninth 10th and 11th ribs. But I also note there is no notable effusion or haziness. No sign of pulmonary contusion or bleeding. We discussed that with the patient on Eliquis We would often consider CT scan. But this is over a day and a half and there is no clinical indication of significant bleeding. He is not pale or lightheaded or dizzy. There is no effusion or pulmonary contusion noted. His abdomen is completely benign. I do not think we need to CT scan now. We will give him meds for pain. Will use incentive spirometer. I explained duration timing and expected course. We discussed returning with worsening pain and he dyspnea any lightheadedness significant bruising, blood in stool urine problems eating or abdominal pain. Radiography Diagnostic Testing: Clinical Impression(s) from Imaging Studies Ribs w/Chest X-Ray 08/01/23 13:52 IMPRESSION: RIBS: Nondisplaced fractures of the left ninth 10th and 11th ribs. Stable scarring as described. CHEST: Normal x-ray examination of the chest. Electronically Signed: Devan Ny MD at 14:14 EST , Discharge Plan Triage Chief Complaint: Chest Other ED Provider: Jose Luis Bell Dx/Rx/DC Orders Clinical Impression: Medication induced coagulopathy, Left rib fracture, Fall at home Instructions: ED Rib Fracture Prescriptions: New oxycodone-acetaminophen [oxycodone-acetaminophen] 5-325 mg tablet 1 tab PO Q6H PRN PRN (Reason: Pain) 3 Days Qty: 12 0RF No Action sertraline 100 mg tablet 100 mg PO DAILY losartan 100 mg tablet 100 mg PO DAILY Qty: 90 3RF Blink Gel Tears 0.25 % drops,gel 1 drp ophthalmic (eye) .QDAY PRN (Reason: dry eye(s)) meloxicam 15 mg tablet 15 mg PO DAILY kevclcco-fap-BE-lycopen-lutein 1 EACH tablet 1 ea PO DAILY Patient Comments: suppliment hydrochlorothiazide 25 MG tablet 25 mg PO DAILY Cholecalciferol (Vitamin D3) [Vitamin D3] 5,000 UNIT capsule 1 cap PO DAILY metoprolol tartrate 50 mg tablet 50 mg PO BID Qty: 180 3RF Eliquis 5 mg tablet 5 mg PO BID Qty: 180 4RF Primary Care Provider: Tres Alexander Referrals: Tres Alexander DO [Primary Care Provider] - 1-2 Weeks Disposition Disposition: Home, Self Care
[2023-08-01 18:14] VITALS: BP 147/88; PULSE 76; RESP 14; O2SAT 99
== END 2023-08-01 18:15 | disposition home or self-care (01) ==
PROVIDERS: Emergency Provider Emergency Medicine; PCP Family Medicine; Visit Provider Emergency Medicine
DX: S22.42XA Multiple fractures of ribs, left side, initial encounter for closed fracture (principal); D68.9 Coagulation defect, unspecified; G47.33 Obstructive sleep apnea (adult) (pediatric); W19.XXXA Unspecified fall, initial encounter
CPT/HCPCS: 71101; 99282

== ENCOUNTER 2023-09-22 10:57 | Outpatient (RCR) | payer MEDICARE, OTHER, SELFPAY ==
[2023-09-15 11:37] LABS: International Normalized Ratio 1.1; Prothrombin Time (Protime)PT. 14.4 SECONDS (11.7-14.9)
[2023-09-22 11:21] LABS: International Normalized Ratio 1.2; Prothrombin Time (Protime)PT. 14.8 SECONDS (11.7-14.9)
== END 2023-09-25 01:03 | disposition home or self-care (01) ==
LOC: LAB 10:57
PROVIDERS: PCP Family Medicine; Referring Provider Physician Assistant Medical; Visit Provider Physician Assistant Medical
DX: E83.110 Hereditary hemochromatosis (principal); Z79.01 Long term (current) use of anticoagulants
CPT/HCPCS: 36415; 85610

== ENCOUNTER 2023-10-20 11:05 | Outpatient (RCR) | payer MEDICARE, OTHER, SELFPAY ==
[2023-09-29 13:15] LABS: International Normalized Ratio 1.2; Prothrombin Time (Protime)PT. 15.4 SECONDS (11.7-14.9)
[2023-10-13 11:51] LABS: International Normalized Ratio 1.5; Prothrombin Time (Protime)PT. 17.7 SECONDS (11.7-14.9)
[2023-10-20 12:20] LABS: International Normalized Ratio 1.5; Prothrombin Time (Protime)PT. 18.3 SECONDS (11.7-14.9)
== END 2023-10-25 23:15 | disposition home or self-care (01) ==
LOC: LAB 11:05
PROVIDERS: PCP Family Medicine; Referring Provider Physician Assistant Medical; Visit Provider Physician Assistant Medical
DX: E83.110 Hereditary hemochromatosis (principal); Z79.01 Long term (current) use of anticoagulants
CPT/HCPCS: 36415; 85610

== ENCOUNTER 2023-11-24 10:57 | Outpatient (RCR) | payer MEDICARE, OTHER, SELFPAY ==
[2023-10-27 12:00] LABS: International Normalized Ratio 1.6; Prothrombin Time (Protime)PT. 18.8 SECONDS (11.7-14.9)
[2023-11-03 12:43] LABS: International Normalized Ratio 1.7; Prothrombin Time (Protime)PT. 19.6 SECONDS (11.7-14.9)
[2023-11-17 11:45] LABS: International Normalized Ratio 1.6; Prothrombin Time (Protime)PT. 18.8 SECONDS (11.7-14.9)
[2023-11-24 12:05] LABS: Absolute Lymphocyte Count 1.45 X10^3/uL (0.83-4.51); Absolute Neutrophil Count 3.7 X10^3/uL (2.0-7.7); Basophil# 0.03 X10^3/uL; Basophil% 0.5 % (0-1); Eosinophil# 0.12 X10^3/uL; Eosinophils% 2.1 % (0-5); Hematocrit 44.6 % (40-54); Lymphocyte # 1.45 X10^3/ul (0.83-4.51); Mean Corp Hgb Conc 35.9 g/dL (32-36); Mean Corpuscular Hgb 33.5 pg (27.0-32.0); Mean Corpuscular Volume 93.3 fL (80-94); Mean Platelet Vol. 11.3 fl (6.2-12.0); Monocyte# 0.48 X10^3/uL; Monocyte% 8.3 % (0-10); NRBC Flagged by Analyzer 0 % (0-5); Neutrophil % 63.9 % (47-70); Platelet Count 144 K/mm3 (150-450); RBC Distribution Width CV 13.2 % (11.6-14.6); RBC Distribution Width SD 45.2 fl (35.1-43.9); Red Blood Count 4.78 M/mm3 (4.6-6.2); White Blood Count 5.8 K/mm3 (4.4-11.0)
[2023-11-24 12:17] LABS: International Normalized Ratio 1.8; Prothrombin Time (Protime)PT. 20.6 SECONDS (11.7-14.9)
[2023-11-24 12:38] LABS: ALB/GLOB Ratio 0.9 RATIO (0.9-2.4); AST(SGOT) 40 U/L (15-37); Alanine Aminotransfer ALT/SGPT 50 U/L (16-61); Albumin, Serum 3.6 g/dL (3.2-5.0); Alkaline Phosphatase 93 U/L (45-117); Anion Gap 6 (5-15); BUN 23 mg/dL (7-18); BUN/Creat Ratio 26.2 RATIO (10-20); Calcium,Total 9.5 mg/dL (8.5-10.1); Chloride 103 mmol/L (98-107); Creatinine, Serum 0.88 mg/dL (0.70-1.30); EST Glomerular Filtration Rate 91 mL/min (>60); Est Glom Filt Rate - Afr Amer 110 mL/min (>60); Ferritin 91 ng/mL (26-388); Globulin 4.2 g/dL (2.2-4.2); Glucose 112 mg/dL (74-106); LDH 199 U/L (87-241); Potassium 4.1 mmol/L (3.5-5.1); Protein, Total 7.8 g/dL (6.4-8.2); Sodium Level 134 mmol/L (136-145)
[2023-11-25 08:12] LABS: AFP, Tumor Marker 1.9 ng/mL (0.0-8.4)
== END 2023-11-24 18:00 | disposition home or self-care (01) ==
LOC: LAB 10:57
PROVIDERS: Internal Medicine Medical Oncology; PCP Family Medicine; Referring Provider Physician Assistant Medical; Visit Provider Physician Assistant Medical
DX: E83.110 Hereditary hemochromatosis (principal); Z79.01 Long term (current) use of anticoagulants
CPT/HCPCS: 36415; 80053; 82105; 82728; 83615; 85025; 85610

== ENCOUNTER 2023-12-15 11:54 | Outpatient (RCR) | payer MEDICARE, OTHER, SELFPAY ==
[2023-12-01 11:08] LABS: INR Fingerstick 1.6; Prothrombin Time Fingerstick 17.6 SEC (11.7-14.9)
[2023-12-01 12:51] LABS: International Normalized Ratio 2.1; Prothrombin Time (Protime)PT. 23.2 SECONDS (11.7-14.9)
[2023-12-15 12:36] LABS: Prothrombin Time (Protime)PT. 22.2 SECONDS (11.7-14.9)
== END 2023-12-15 18:00 | disposition home or self-care (01) ==
LOC: LAB 11:54
PROVIDERS: PCP Family Medicine; Referring Provider Physician Assistant Medical; Visit Provider Physician Assistant Medical
DX: E83.110 Hereditary hemochromatosis (principal); Z79.01 Long term (current) use of anticoagulants; I48.92 Unspecified atrial flutter
CPT/HCPCS: 36415; 36416; 85610

== ENCOUNTER 2024-01-19 10:48 | Outpatient (RCR) | payer MEDICARE, OTHER, SELFPAY ==
[2024-01-05 11:50] LABS: International Normalized Ratio 1.8; Prothrombin Time (Protime)PT. 20.5 SECONDS (11.7-14.9)
[2024-01-19 11:37] LABS: International Normalized Ratio 1.9; Prothrombin Time (Protime)PT. 21.4 SECONDS (11.7-14.9)
== END 2024-01-25 18:00 | disposition home or self-care (01) ==
LOC: LAB 10:48
PROVIDERS: PCP Family Medicine; Referring Provider Physician Assistant Medical; Visit Provider Physician Assistant Medical
DX: E83.110 Hereditary hemochromatosis (principal); Z79.01 Long term (current) use of anticoagulants
CPT/HCPCS: 36415; 85610

== ENCOUNTER 2024-02-23 11:05 | Outpatient (RCR) | payer MEDICARE, OTHER, SELFPAY ==
[2024-02-02 11:35] LABS: International Normalized Ratio 1.5; Prothrombin Time (Protime)PT. 18.3 SECONDS (11.7-14.9)
[2024-02-09 12:35] LABS: International Normalized Ratio 1.9; Prothrombin Time (Protime)PT. 21.2 SECONDS (11.7-14.9)
[2024-02-23 11:50] LABS: International Normalized Ratio 1.9; Prothrombin Time (Protime)PT. 21.7 SECONDS (11.7-14.9)
== END 2024-02-23 18:00 | disposition home or self-care (01) ==
LOC: LAB 11:05
PROVIDERS: Internal Medicine Cardiovascular Disease; PCP Family Medicine; Referring Provider Physician Assistant Medical; Visit Provider Physician Assistant Medical
DX: Z79.01 Long term (current) use of anticoagulants (principal); E83.110 Hereditary hemochromatosis; I48.92 Unspecified atrial flutter
CPT/HCPCS: 36415; 85610

== ENCOUNTER 2024-03-08 10:45 | Outpatient (RCR) | payer MEDICARE, OTHER, SELFPAY ==
[2024-03-08 11:46] LABS: International Normalized Ratio 2.2; Prothrombin Time (Protime)PT. 24.7 SECONDS (11.7-14.9)
== END 2024-03-08 18:00 | disposition home or self-care (01) ==
LOC: LAB 10:45
PROVIDERS: PCP Family Medicine; Referring Provider Physician Assistant Medical; Visit Provider Physician Assistant Medical
DX: E83.110 Hereditary hemochromatosis (principal); Z79.01 Long term (current) use of anticoagulants
CPT/HCPCS: 36415; 85610

== ENCOUNTER 2024-03-29 12:23 | Outpatient (RCR) | payer MEDICARE, OTHER, SELFPAY ==
[2024-03-29 14:09] LABS: International Normalized Ratio 2.9; Prothrombin Time (Protime)PT. 29.9 SECONDS (11.7-14.9)
== END 2024-03-29 18:00 | disposition home or self-care (01) ==
LOC: LAB 12:23
PROVIDERS: PCP Family Medicine; Referring Provider Physician Assistant Medical; Visit Provider Physician Assistant Medical
DX: E83.110 Hereditary hemochromatosis (principal); Z79.01 Long term (current) use of anticoagulants
CPT/HCPCS: 36415; 85610

== ENCOUNTER → 2024-05-07 | Outpatient (CLI) | payer MEDICARE, OTHER, SELFPAY ==
[2024-05-07 12:51] LABS: Microalbumin,Random Urine 24.4 mg/L (NO RANGE EST.)
== END | disposition home or self-care (01) ==
LOC: BFHLAB 10:12
PROVIDERS: PCP Family Medicine; Referring Provider Family Medicine; Visit Provider Family Medicine
DX: E11.40 Type 2 diabetes mellitus with diabetic neuropathy, unspecified (principal); Z12.5 Encounter for screening for malignant neoplasm of prostate
CPT/HCPCS: 82043; 82570

== ENCOUNTER 2024-05-25 12:42 | Outpatient (RCR) | payer MEDICARE, OTHER, SELFPAY ==
[2024-04-27 12:38] LABS: International Normalized Ratio 3.3
[2024-05-11 08:56] LABS: International Normalized Ratio 2.6; Prothrombin Time (Protime)PT. 27.5 SECONDS (11.7-14.9)
[2024-05-11 08:58] LABS: Cholesterol 226 mg/dL (200); High Density Lipoprotein 35 mg/dL; PSA,Total - Annual Screen 2.56 ng/mL (0.00-4.00); Triglycerides 220 mg/dL; Very Low Density Lipoprotein 44 mg/dL (5-40)
[2024-05-25 13:06] LABS: International Normalized Ratio 2.7; Prothrombin Time (Protime)PT. 28.8 SECONDS (11.7-14.9)
== END 2024-05-26 18:00 | disposition home or self-care (01) ==
LOC: LAB 12:42
PROVIDERS: PCP Family Medicine; Referring Provider Physician Assistant Medical; Visit Provider Physician Assistant Medical
DX: E11.40 Type 2 diabetes mellitus with diabetic neuropathy, unspecified; E83.110 Hereditary hemochromatosis; Z79.01 Long term (current) use of anticoagulants; Z12.5 Encounter for screening for malignant neoplasm of prostate
CPT/HCPCS: 36415; 80061; 84153; 85610; G0103

== ENCOUNTER → 2024-06-06 | Outpatient (CLI) | payer MEDICARE, OTHER, SELFPAY ==
--- NOTE | 2024-06-06 08:13 | US_ITS ---
EXAM: US ABDOMEN LIMITED, RIGHT UPPER QUADRANT CLINICAL INDICATION: RUQ; hemachromatosis TECHNIQUE: Real-time ultrasound of the right upper quadrant with image documentation. COMPARISON: June 14, 2023 FINDINGS: LIVER: 15.5 cm liver is echogenic/fatty. No intrahepatic biliary ductal dilation. GALLBLADDER: Solitary gallstone measuring 6 mm. Sonographic Rutledge''s sign is absent. Gallbladder wall measures 2 mm. No pericholecystic fluid. COMMON BILE DUCT: Common bile duct measures 4 mm. The proximal common bile duct is within normal limits for the patient''s age. PANCREAS: Echogenic pancreas with tail not visualized. No pancreatic ductal dilatation. RIGHT KIDNEY: Right kidney is unremarkable except for note of a 3.5 cm exophytic cyst at the interpolar level, which is likely benign. There is no hydronephrosis. No shadowing calculus. OTHER VASCULATURE: Main portal vein is patent with normal direction of blood flow. US/Abdomen Limited IMPRESSION: 1. Fatty liver. 2. Cholelithiasis without acute cholecystitis. 3. Right renal cyst is benign. It did Electronically Signed: Triston Flower MD at 20:11 EST ,
== END | disposition home or self-care (01) ==
LOC: US 08:09
PROVIDERS: PCP Family Medicine; Referring Provider Nurse Practitioner Family; Visit Provider Nurse Practitioner Family
DX: R10.11 Right upper quadrant pain (principal); E83.110 Hereditary hemochromatosis
CPT/HCPCS: 76705

== ENCOUNTER 2024-06-22 07:55 | Outpatient (RCR) | payer MEDICARE, OTHER, SELFPAY ==
[2024-06-14 12:01] LABS: International Normalized Ratio 4.1
[2024-06-22 08:29] LABS: International Normalized Ratio 2.1; Prothrombin Time (Protime)PT. 23.7 SECONDS (11.7-14.9)
== END 2024-06-22 18:00 | disposition home or self-care (01) ==
LOC: LAB 07:55
PROVIDERS: PCP Family Medicine; Referring Provider Physician Assistant Medical; Visit Provider Physician Assistant Medical
DX: E83.110 Hereditary hemochromatosis (principal); Z79.01 Long term (current) use of anticoagulants
CPT/HCPCS: 36415; 85610

== ENCOUNTER 2024-07-12 10:11 | Outpatient (RCR) | payer MEDICARE, OTHER, SELFPAY ==
[2024-06-28 13:54] LABS: International Normalized Ratio 2.3; Prothrombin Time (Protime)PT. 25.5 SECONDS (11.7-14.9)
[2024-07-12 10:58] LABS: International Normalized Ratio 2.2
== END 2024-07-12 18:00 | disposition home or self-care (01) ==
LOC: LAB 10:11
PROVIDERS: PCP Family Medicine; Referring Provider Physician Assistant Medical; Visit Provider Physician Assistant Medical
DX: Z79.01 Long term (current) use of anticoagulants (principal); E83.110 Hereditary hemochromatosis
CPT/HCPCS: 36415; 85610

== ENCOUNTER 2025-04-20 19:21 | Emergency (ER) | payer MEDICARE, OTHER, SELFPAY ==
[2025-04-20 19:22] VITALS: BP 118/102; PULSE 84; RESP 14; TEMP 36.2; O2SAT 98; BMI 33.6
[2025-04-20 19:48] VITALS: BP 168/89; PULSE 79; RESP 16; O2SAT 99
--- NOTE | 2025-04-20 19:52 | EX.ED.GUMALE ---
HPI History of Present Illness Chief Complaint: Complaint Narrative Narrative: This is a 74-year-old male who presents to the emergency department with urinary retention, abdominal pain and dysuria. The patient states since yesterday he has been having some dysuria. The patient was able to fully urinate this morning but has not been able to since then. He is having trouble initiating stream. He has quite a bit of burning when he urinates. No hematuria. He feels a lot of pain and pressure in the suprapubic region of his abdomen. No back or flank pain. No fevers or chills. No nausea or vomiting. The patient states that he has been constipated, but he drink a full glass with MiraLAX and took a Dulcolax this morning and now he is starting to have multiple bowel movements. Patient states his gave him Azo for the dysuria. He does have a history of BPH. He has required a Alvarez catheter in the past. [facility] Medical History Acute otitis externa of left ear Acute pharyngitis, unspecified Personal history of colonic polyps Wears hearing aid Wears partial dentures Wears dentures Depression Alcohol use Back pain Meniere disease Non-smoker BiPAP (biphasic positive airway pressure) dependence Leg cramps Hypertension Obesity Paroxysmal atrial flutter Essential (primary) hypertension MAURI (obstructive sleep apnea) Vertigo Cirrhosis Hyperlipidemia Diverticulitis Arthritis Hemochromatosis Home Medications ?Medication ?Instructions ?Recorded ?Last Taken ?Type kcsaztjz-lco-vqvtt acid 0.4 1 ea PO DAILY SUPPLEMENT 05/22/14 03/09/23 History mg-lycopene 300 mcg-lutein 250 mcg tablet losartan 100 mg tablet 100 mg PO DAILY #90 tabs 01/29/20 03/09/23 Rx Cholecalciferol (Vitamin D3) 1 cap PO DAILY 04/30/20 03/09/23 History [Vitamin D3] hydrochlorothiazide 25 mg tablet 25 mg PO DAILY 04/30/20 Unknown History sertraline 100 mg tablet 100 mg PO DAILY 03/19/21 03/09/23 History meloxicam 15 mg tablet 15 mg PO DAILY 01/20/23 03/09/23 History apixaban 5 mg tablet 5 mg PO BID #180 tabs 06/22/24 Unknown Rx metoprolol tartrate 50 mg tablet 50 mg PO BID #180 tabs 11/06/24 Unknown Rx semaglutide 1 mg/dose (4 mg/3 mL) 1 mg subcut QWEEK 11/27/24 Unknown History subcutaneous pen injector (Ozempic) docusate sodium 100 mg capsule 100 mg PO DAILY 30 days #30 caps 04/20/25 Unknown Rx (Colace) Allergy/AdvReac Type Severity Reaction Status Date / Time Penicillins (PCN) Allergy Severe Hives Verified 04/20/25 19:23 nabumetone (From Relafen) Allergy Unknown Verified 04/20/25 19:23 ezetimibe (From Zetia) AdvReac Intermediate Pain in Verified 04/20/25 19:23 joints Xowihvw-UPC-XiT Reductase AdvReac Unknown Verified 04/20/25 19:23 Inhibitor (Ybxtgzv-Rop-Xvp Reductase Inhibitor) Family History Mother COPD (chronic obstructive pulmonary disease) Father Heart disease Surgical History History of liver biopsy History of brain shunt Hx of right cataract extraction Hx of left cataract extraction History of cardioversion (06/11/19) History of hip replacement, total History of eye surgery History of vasectomy History of hernia repair History of colon resection History of back surgery History of appendectomy Social History Smoking Status: Never smoker alcohol intake: never ROS ROS ED Constitutional Constitutional ED: Reports as per HPI and headache(s); Denies chills or fever(s) Cardiovascular Cardiovascular: Denies chest pain or dyspnea Respiratory/Chest Respiratory/Chest: Denies dyspnea Gastrointestinal Gastrointestinal: Reports abdominal pain, constipation and diarrhea; Denies nausea or vomiting Genitourinary Genitourinary ED: Reports burning urination and dysuria; Denies flank pain, hematuria or urinary frequency Musculoskeletal Musculoskeletal: Reports arthralgias; Denies back pain or myalgias Hematologic/Lymphatic Hematologic/Lymphatic: Reports none Allergic/Immunologic Allergic/Immunologic ED: Reports none EXAM Physical Exam Const Vital Signs: 04/20/25 19:22 04/20/25 19:48 10/25/25 20:07 Temperature 97.1 F L Temperature Source Temporal Pulse Rate 84 79 66 Respiratory Rate 14 16 16 Blood Pressure 118/102 H 168/89 H 128/79 H Blood Pressure Mean 107 115 95 Pulse Ox 98 99 98 Oxygen Delivery Method Room Air Room Air Room Air Positive well nourished, well developed, oriented x3 and healthy appearing General Appearance ED: active, cooperative and well developed Orientation / Consciousness: awake and oriented to person Exam Limitations: no limitations Nutritional Appearance: Negative for overweight HEENT Reports normocephalic, head/scalp atraumatic, moist mucous membranes, nasal mucous membranes and turbinates normal and oropharynx normal normocephalic, normal to inspection and atraumatic Eyes PERRL, EOMs intact bilaterally and conjunctivae normal General Eye ED: Yes normal appearance of both eyes Visual Acuity: acuity normal Eyelid: eyelids normal Conjunctiva: conjunctiva normal Sclera: sclera normal Cornea: cornea normal Pupil: PERRL and accommodation reflex normal EOM: EOM abnormal Neck full ROM Chest Wall inspection of chest normal Chest: abnormal inspection of the chest Resp normal respiratory effort and normal air movement Effort and Inspection: able to speak in complete sentences and symmetric chest movement Auscultation: clear to auscultation bilaterally Cardio regular rate and regular rhythm Rate: regular rate Peripheral Pulses: pulses 2+ throughout GI normal to inspection, nondistended, normoactive bowel sounds Palpation: soft and tender suprapubic Rectal Exam: deferred Back/Spine normal ROM and normal to inspection Cervical Spine: cervical ROM normal Extremity normal to inspection, full ROM and normal capillary refill Neuro oriented x3, CN's II-XII intact bilaterally, moves all extremities and no focal motor deficits Sensorium / Orientation: awake and alert Motor Exam: strength 5/5 throughout Psych mental status grossly normal Appearance: grossly normal and appropriate Speech: normal speech Skin no rashes or lesions noted MDM MDM MDM Narrative Medical decision making narrative: Patient presents to the emergency department with suprapubic pain and difficulty urinating. We did bedside bladder scan after the patient attempted to urinate he had 800 cc urine in his bladder. At this point we placed a Alvarez catheter and he had output of more than a liter of urine. This was yellow in color. We sent this for urinalysis and patient does not have any evidence of acute infection at this time. Patient continued to have collection of fluid. I discussed keeping the urinary catheter in place given his urinary retention he is agreeable with this. He already follows with urology and will call for follow-up appointment this week. As for the patient's constipation, he will repeat the Dulcolax and MiraLAX tomorrow morning and I also write him prescription for Colace. He was given strict return precautions. All questions answered. We will place a leg bag on and provide emptying instructions of the collecting bag to the patient and his . They are agreeable with this plan. Lab Data Labs: Laboratory Results - last 24 hr 04/20/25 20:05 Urine Color Yellow Urine Clarity Clear Urine pH 6.5 Ur Specific [place] 1.010 Urine Protein 15 H Urine Glucose (UA) Normal Urine Ketones Negative Urine Occult Blood 10 H Urine Nitrite Negative Urine Bilirubin Negative Urine Urobilinogen Normal Ur Leukocyte Esterase Negative Urine RBC 0-5 SEEN Urine WBC 0-5 SEEN Ur Squamous Epith Cells 0-5 SEEN Urine Bacteria 0 SEEN Urine Mucus 0 SEEN Discharge Plan Triage Chief Complaint: Complaint ED Provider: Marine Gold Dx/Rx/DC Orders Clinical Impression: Urinary retention, Constipation Instructions: ED Constipation (Adult), ED Alvarez Catheter, Care, ED Urinary Retention, Male Prescriptions: New docusate sodium [Colace] 100 mg capsule 100 mg PO DAILY 30 Days Qty: 30 0RF No Action sertraline 100 mg tablet 100 mg PO DAILY losartan 100 mg tablet 100 mg PO DAILY Qty: 90 3RF meloxicam 15 mg tablet 15 mg PO DAILY Ozempic 1 mg/dose (4 mg/3 mL) pen injector 1 mg subcut QWEEK ddgioqti-igd-BB-lycopen-lutein 1 EACH tablet 1 ea PO DAILY Patient Comments: suppliment hydrochlorothiazide 25 MG tablet 25 mg PO DAILY Cholecalciferol (Vitamin D3) [Vitamin D3] 5,000 UNIT capsule 1 cap PO DAILY apixaban 5 mg tablet 5 mg PO BID Qty: 180 3RF Rx Instructions: Sending to [facility] metoprolol tartrate 50 mg tablet 50 mg PO BID Qty: 180 3RF Primary Care Provider: Tres Alexander Referrals: Tres Alexander DO [Primary Care Provider, Family Practice] Print Language: [place] Disposition Disposition: Home, Self Care
--- OUTSIDE RECORDS SUMMARY | 2025-04-20 19:57 | XMS RPT_ITS | CCD ---
Author Organization [facility] Care Team Providers Care Warehouse Attendant Name Role Phone Misa TANG, Latoya Woo Unavailable Yamini Lim Unavailable Unavailable Alonzo Dupree Admitting Unavailable Alonzo Dupree Attending Unavailable Arnold Escobedo Primary Care Unavailable Yamini Lim Unavailable Unavailable Ada Alexander Unavailable Vani Cordon Unavailable Unavailable Dr. Ada Alexander Primary Care Provider [phone] Dr. Ada Alexander Referring Provider Mars HOOD, ROAD PATCHER-C Gabriela Attending Provider Dr. Ada Alexander Primary Care Provider Dr. Ada Alexander Referring Provider CONNER Law Attending Provider Dr. Roque Kang Attending Provider CONNER Grover Attending Provider Dr. Faustino Chin Attending Provider Anil HOOD, DEVAUGHN Cueva Attending Provider Dr. Ada Alexander Primary Care Provider [phone] Ada Alexander Referring Provider [phone] Faustino Chin Other Provider Dr. Ada Alexander Primary Care Provider [phone] Dr. Ada Alexander Referring Provider CONNER Grover Attending Provider Dr. Roque Kang Attending Provider Dr. Ada Alexander Primary Care Provider [phone] Dr. Ada Alexander Referring Provider Dr. Ada Alexander Primary Care Provider [phone] Dr. Ada Alexander Referring Provider Dr. Roque Kang Attending Provider CONNER Grover Attending Provider Dr. Ada Alexander Primary Care Provider [phone] Dr. Ada Alexander Referring Provider ANDREZ PINEDO Attending Unavailable HONG, GLORIA HYUN Referring Unavailable FRANCOIS, ADA A Primary Care Unavailable HONG, GLORIA HYUN Referring Unavailable FRANCOIS, ADA A Primary Care Unavailable HONG, GLORIA HYUN Referring Unavailable FRANCOIS, ADA A Primary Care Unavailable HONG, GLORIA HYUN Referring Unavailable FRANCOIS, ADA A Primary Care Unavailable HONG, GLORIA HYUN Referring Unavailable FRANCOIS, ADA A Primary Care Unavailable HONG, GLORIA HYUN Referring Unavailable FRANCOIS, ADA A Primary Care Unavailable ARI CARABALLO Attending Unavailable HONG, GLORIA HYUN Referring Unavailable FRANCOIS, ADA A Primary Care Unavailable Francois Dr. Ada MENDOZA Primary Care Provider Dr. Ada Alexander DO Referring Provider [phone] PATCHER-C, Gabriela Attending Provider Ada Alexander Attending Unavailable Francois, Ada Primary Care Unavailable Francois, Ada Attending Unavailable Francois, Ada Primary Care Unavailable Francois, Ada Referring Unavailable Mars ROAD PATCHER, Gabriela Referring Unavailable Mars ROAD PATCHER, Gabriela Attending Unavailable Francois, Ada Primary Care Unavailable Jay Carter Attending Unavailable Francois, Ada Primary Care Unavailable Francois, Ada Referring Unavailable Francois, Ada Referring Unavailable Mars ROAD PATCHER, Gabriela Attending Unavailable Francois, Ada Primary Care Unavailable Francois, Ada Primary Care Unavailable Francois, Ada Referring Unavailable Latoya Grover Attending Unavail able Mars ROAD PATCHER, Gabriela Attending Unavailable Francois, Ada Primary Care Unavailable Francois, Ada Referring Unavailable Elsy, Faustino Consulting Unavailable Francois, Ada Primary Care Unavailable Latoya Grover Attending Unavail able Latoya Grover Referring Unavail able Francois, Ada Primary Care Unavailable Latoya Grover Referring Unavail able Elsy, Faustino Consulting Unavailable Latoya Grover Attending Unavail able Francois, Ada Primary Care Unavailable Latoya Grover Referring Unavail able Elsy, Afustino Consulting Unavailable Latoya Grover Attending Unavail able Elsy, [place] Consulting Unavailable Francois, Ada Primary Care Unavailable Latoya Grover Referring Unavail able Latoya Grover Attending Unavail able Francois, Ada Attending Unavailable Francois, Ada Primary Care Unavailable Francois, Ada Referring Unavailable Francois, Ada Referring Unavailable Mars ROAD PATCHER, Gabriela Attending Unavailable Francois, Ada Primary Care Unavailable Elsy, Faustino Consulting Unavailable Francois, Ada Primary Care Unavailable Latoya Grover Attending Unavail able Latoya Grover Referring Unavail able Francois, Ada Primary Care Unavailable Latoya Grover Referring Unavail able Elsy, [place] Consulting Unavailable Latoya Grover Attending Unavail able Elsy, [place] Consulting Unavailable Francois, Ada Primary Care Unavailable Latoya Grover Attending Unavail able Latoya Grover Referring Unavail able Allergies Allergy Classification Reported Allergen(s) Allergy Type Date of Onset Reaction(s) Facility Penicillins (antibiotic) (1 source) Penicillin Drug Allergy Hives/Urticaria [facility] (3 sources) ezetimibe drug allergy 6 myalgia [facility] Work Phone: (3 sources) fish, unspecified; Translations: [STATIN MEDICATIONS] food allergy 6 Elevated LFT's [facility] Work Phone: (4 sources) penicillin drug allergy Hives/Urticaria [facility] Work Phone: (12 sources) Penicillins; Translations: [penicillins] Propensity to adverse reactions to drug (disorder) [facility] (10 sources) ezetimibe Drug Allergy 2 Pain in joints [facility] (10 sources) nabumetone Drug Allergy 2 Unknown [facility] (11 sources) Nbwulob-Dlj-Mkm Reductase Inhibitor; Translations: [Qioylcf-Dwd-Ar a Reductase Inhibitor] Propensity to adverse reactions 2 Unknown [facility] (1 source) ALLERGIES NOT ON FILE; Translations: [ALLERGIES NOT ON FILE] Propensity to adverse reactions (disorder) [facility] 2 Repository (1 source) ezetimibe Drug Allergy 5 [facility] Repository (1 source) nabumetone Drug Allergy 5 [facility] Repository Medications Current Medications Medication Drug Class(es) Dates Sig (Normalized) Sig (Original) apixaban 5 mg oral tablet (20 sources) Factor Xa Inhibitor Start: 06-22-2024 take 1 tablet by mouth twice daily Apixaban 5 mg tablet Active 5 mg PO TWICE A DAY 180 June 22, 2024 1:00am Sending to [facility] Start: 01-18-2023 End: 09-01-2023 take 1 tablet by mouth twice daily Apixaban (Eliquis) 5 mg tablet Discontinued 5 mg PO TWICE A DAY 180 August 22, 2023 12:40pm September 01, 2023 11:05am Cholecalciferol (Vitamin D3) (Vitamin D3) 5,000 UNIT capsule (10 sources) Start: 04-30-2020 Cholecalcifero l (Vitamin D3) (Vitamin D3) 5,000 UNIT capsule Active 1 NMA PO DAILY April 30, 2020 1:00am Start: 04-30-2020 take 1 capsule by mo uth once daily Cholecalciferol (Vitamin D3) (Vitamin D3) 5,000 UNIT capsule Active 1 CAP PO DAILY April 30, 2020 12:00am Start: 04-30-2020 take 1 capsule by mo uth once daily Cholecalciferol (Vitamin D3) (Vitamin D3) 5,000 UNIT capsule Active 1 CAP PO DAILY April 30, 2020 1:00am hydroCHLOROthiazide 25 mg oral tablet (20 sources) Thiazide Diuretic Start: 04-30-2020 take 1 tablet by mouth once daily Hydrochlorothiazide 25 MG tablet Active 25 mg PO DAILY April 30, 2020 1:00am Start: 01-29-2020 End: 01-29-2020 take 1 tablet by mouth once daily Hydrochlorothiazide 12.5 mg tablet Discontinued 12.5 mg PO DAILY January 29, 2020 12:00am January 29, 2020 4:09pm losartan potassium 100 mg oral tablet (20 sources) Angiotensin 2 Receptor Fabio Start: 01-29-2020 take 1 tablet by mouth once daily Losartan 100 mg tablet Active 100 mg PO DAILY 90 January 29, 2020 12:00am Start: 01-29-2020 End: 01-29-2020 take 1 tablet by mouth once daily Losartan 50 mg tablet Discontinued 50 mg PO DAILY January 29, 2020 12:00am January 29, 2020 4:10pm take [facility] daily losartan 25 mg oral tablet ; 1 tab(s) orally once a day Quantity: 0 Refills: 0 Ordered: 21-Jun-2019 Keely Abbott Generic Substitution Allowed meloxicam 15 mg oral tablet (20 sources) Nonsteroidal Anti-inflammatory Drug Start: 01-20-2023 take 1 tablet by mouth once daily Meloxicam 15 mg tablet Active 15 mg PO DAILY January 20, 2023 12:00am Start: 05-09-2019 End: 01-18-2023 take 1 tablet by mouth once daily Meloxicam 15 mg tablet Discontinued 15 mg PO DAILY May 09, 2019 1:00am January 18, 2023 4:57pm Start: 06-15-2018 End: 05-09-2019 take 1 tablet by mouth twice daily Meloxicam 7.5 MG tablet Discontinued 7.5 mg PO TWICE A DAY June 15, 2018 1:00am May 09, 2019 11:42am Start: 01-27-2016 End: 06-15-2018 take 1 tablet by mouth every other day Meloxicam (Mobic) 15 MG tablet Discontinued 15 mg PO EVERY OTHER DAY September 16, 2016 12:00am June 15, 2018 9:34am take 1 capsule by mo [facility] once daily meloxicam 5 mg oral capsule ; 1 cap(s) orally once a day Quantity: 0 Refills: 0 Ordered: 21-Jun-2019 Keely Abbott Generic Substitution Allowed End: 10-28-2015 take 1 tablet by mouth once daily MELOXICAM 15 MG TABS One tablet by mouth daily MELOXICAM [id number] Morgandesean Villalta metoprolol tartrate 50 mg oral tablet (20 sources) beta-Adrenergic Fabio Start: 01-18-2023 End: 11-06-2024 take 1 tablet by mouth twice daily Metoprolol Tartrate 50 mg tablet Active 50 mg PO TWICE A DAY November 06, 2024 12:05pm Start: 05-09-2019 End: 01-29-2020 take 1 tablet by mouth once daily Metoprolol Succinate (Toprol Xl) 50 mg tablet extended release 24 hr Discontinued 50 mg PO DAILY July 05, 2019 2:52pm January 29, 2020 4:10pm Start: 06-04-2016 METOPROLOL TAR TRATE 25 MG TABS One half tablet by mouth twice daily- STOP METOPROLOL TARTRATE [id number] Latoya Wadsworth PA-C Zairgmcx-Hqf-Nw-Lycopen-Lute in (9 sources) Start: 05-22-2014 Zwhilcdq-Wrc-Ku-Lycopen-Lute in Active 1 EACH PO DAILY May 22, 2014 12:00am Start: 05-22-2014 Gyccwtkf-Rce-E x-Ghptndk-Oxltka Active 1 EACH PO DAILY May 22, 2014 1:00am Vjkmgvrk-Khh-Tj-Lycopen-Lute in 1 EACH tablet (1 source) Start: 05-22-2014 Cukzbtfy-Fge-Zg-Lycopen-Lute in 1 EACH tablet Active 1 NMA PO DAILY May 22, 2014 1:00am Multivitamin preparation (2 sources) Multi Vitamin+ Q uantity: 0 Refills: 0 Ordered: 21-Jun-2019 Keely Abbott Generic Substitution Allowed Semaglutide (1 source) Start: 11-27-2024 Semaglutide (Ozempic) 1 mg/d ose (4 mg/3 mL) pen injector Active 1 mg SC EVERY WEEK November 27, 2024 12:00am sertraline 100 mg oral table t (20 sources) Seroto greg Reupta ke Inhibi tor Start: 03-19-2021 take 1 tablet by mouth once daily Sertraline 100 mg tablet Active 100 mg PO DAILY March 19, 2021 1:00pm Start: 05-09-2019 End: 03-19-2021 take 2 tablets by mouth once daily Sertraline 100 mg tablet Discontinued 200 mg PO DAILY May 09, 2019 1:00am March 19, 2021 1:01pm Start: 05-09-2019 End: 03-19-2021 take 200 mg by mouth once daily Sertraline Discontinue d 200 MG PO DAILY May 09, 2019 1:00am March 19, 2021 1:01pm Start: 05-31-2013 End: 05-09-2019 Sertraline 100 MG tablet Discontinued 50 mg PO DAILY May 31, 2013 1:00am May 09, 2019 11:41am weaning off of Start: 05-31-2013 End: 05-09-2019 take 50 mg by mouth once daily Sertraline Discontinued 50 MG PO DAILY May 31, 2013 1:00am May 09, 2019 11:41am weaning off of Start: 11-07-2012 take 1 tablet by wolf th once daily ZOLOFT 100 MG TABS One tablet by mouth daily SERTRALINE HCL [id number] Clau Smart LPN take 1 tablet by wolf th once daily sertraline 25 mg oral tablet ; 1 tab(s) orally once a day Quantity: 0 Refills: 0 Ordered: 21-Jun-2019 Keely Abbott Generic Substitution Allowed take 1 tablet by wolf th every other day, then take 0.5 tablet by mouth once daily ZOLOFT 50 MG TABS One tablet by mouth every other day. Take 1/2 tablet (25 mg) on the opposite days. SERTRALINE HCL [id number] Eddie Villalta take 1 tablet by wolf th once daily ZOLOFT 50 MG TABS One tablet by mouth daily. SERTRALINE HCL [id number] Lalito Carty DO Completed/Discontinued Medications Medication Drug Class(es) Dates Sig (Normalized) Sig (Original) acetaminophen 500 mg oral tablet (10 sources) Start: 06-15-2018 End: 11-01-2018 take 2 tablets by mouth every eight hours Acetaminophen 500 MG tablet Discontinued 1000 mg PO EVERY 8 HOURS June 15, 2018 1:00am November 01, 2018 2:16pm Start: 06-15-2018 End: 11-01-2018 take 1000 mg by mouth every eight hours Acetaminophen Discontinued 1000 MG PO EVERY 8 HOURS June 15, 2018 1:00am November 01, 2018 2:16pm acetaminophen 325 mg / oxyCODONE hydrochloride 5 mg oral tablet (4 sources) Opioid Agonist Start: 08-01-2023 End: 03-20-2024 Oxycodone-Acetaminophen 5-32 5 mg tablet Discontinued 1 {tbl} PO EVERY 6 HOURS NEEDED as needed for Pain 05 29August 01, 2023 March 20, 2024 11:27am Start: 08-01-2023 take 1 tablet by wolf th every six hours as needed Oxycodone-Acetaminophen Active 1 TABLET PO EVERY 6 HOURS NEEDED 05 29August 01, 2023 aspirin 81 mg delayed release oral tablet (2 sources) Nonsteroidal Anti-inflammatory Drug Start: 11-15-2016 take 1 tablet by mouth once daily ASPIRIN EC 81 MG TBEC One tablet by mouth daily ASPIRIN [id number] Latoya Wadsworth PA-C azithromycin 250 mg oral tablet (2 sources) Macrolide Antimicrobial Start: 06-21-2019 Zithromax Z-Tez 250 mg oral tablet ; as directed on package Quantity: 1 Refills: 0 Ordered: 21-Jun-2019 Carl Haq Start: 21-Jun-2019 Status: Completed Generic Substitution Allowed Comments: Do not take dairy products, antacids, or iron preparations within one hour of this medication.Finish all this medication unless otherwise directed by prescriber. Comment on above: Do not take dairy pr oducts, antacids, or iron preparations within one hour of this medication.Finish all this medication unless otherwise directed by prescriber. benzonatate 100 mg oral capsule (1 source) Non-narcotic Antitussive Start: 06-19-2024 End: 11-27-2024 take 2 capsules by mouth three times daily as needed for cough Benzonatate 100 mg capsule Discontinued 200 mg PO THREE TIMES A DAY as needed for cough June 19, 2024 1:00am November 27, 2024 2:24pm cholecalciferol 0.125 mg oral capsule (12 sources) Vitamin D Start: 05-29-2018 End: 05-09-2019 take 1 capsule by mouth once daily Cholecalciferol (Vitamin D3) 5,000 UNIT capsule Discontinued 5000 U PO DAILY May 29, 2018 1:00am May 09, 2019 11:43am take 1 capsule by mouth every we ek Vitamin D3 50,000 intl units (1250 mcg) oral capsule ; 1 cap(s) orally once a week Quantity: 0 Refills: 0 Ordered: 21-Jun-2019 Keely Abbott Generic Substitution Allowed doxycycline monohydrate 100 mg oral tablet (1 source) Tetracycline-class Drug Start: 06-19-2024 End: 06-29-2024 take 1 tablet by mouth twice daily Doxycycline Monohydrate 100 mg tablet Discontinued 100 mg PO TWICE A DAY 15 04June 19, 2024 1:00am June 28, 2024 1:00am June 29, 2024 1:11am ezetimibe 10 mg oral tablet (6 sources) Dietary Cholesterol Absorption Inhibitor End: 07-17-2014 take 1 tablet by mouth once daily ZETIA 10 MG TABS One tablet by mouth daily EZETIMIBE [id number] Clau Smart LPN hydroCHLOROthiazide 12.5 mg / losartan potassium 50 mg oral tablet (10 sources) Thiazide Diuretic, Angiotensin 2 Receptor Fabio Start: 05-10-2018 End: 01-29-2020 Losartan-Hydroch lorothiazide 1 EACH tablet Discontinued 1 {tbl} PO DAILY May 10, 2018 1:00am January 29, 2020 3:44pm Start: 05-10-2018 End: 01-29-2020 take 1 tablet by mouth once daily Losartan-Hydrochlorothiazide Discontinue d 1 TABLET PO DAILY May 10, 2018 1:00am January 29, 2020 3:44pm hydroCHLOROthiazide 25 mg / valsartan 160 mg oral tablet (6 sources) Thiazide Diuretic, Angiotensin 2 Receptor Fabio DIOVAN HCT 160-25 MG TABS One-half tablet by mouth daily VALSARTAN-HYDROCHLOROTHIAZIDE [id number] [facility] 0.5 tablet by m outh once daily, then take 160-25 tablets by mouth DIOVAN HCT 160-25 MG TABS One-half table t by mouth daily VALSARTAN-HYDROCHLOROTHIAZIDE [id number] [facility] H Machelle DO take 1 tablet by wolf th once daily DIOVAN HCT 160-25 MG TABS One tablet by mouth daily VALSARTAN-HYDROCHLOROTHIAZIDE [id number] Clau Smart LPN hydrocortisone 10 mg/ml / neomycin 3.5 mg/ml / polymyxin b 08922 unt/ml otic suspension (9 sources) Aminoglycoside Antibacterial, Polymyxin-class Antibacterial, Corticosteroid Start: 10-28-2022 End: 11-07-2022 Jaozeaya-Sijeywhzh-Bh 3.5-10,000-1 mg/mL-unit/mL-% drops,suspension Discontinued 4 NMA OTIC THREE TIMES A DAY 04 05October 28, 2022 12:00am November 06, 2022 12:00am November 07, 2022 12:04am to affected ear(s) Start: 10-28-2022 End: 11-07-2022 Jngnecwy-Swxrpjyki-Bs Discon tinued 4 DRP OTIC THREE TIMES A DAY 04 05October 28, 2022 12:00am November 07, 2022 12:04am to affected ear(s) ibuprofen 200 mg oral tablet (6 sources) Nonsteroidal Anti-inflammatory Drug End: 07-17-2014 take 2 tablets by mouth three times daily as needed ADVIL 200 MG TABS Two tablets by mouth three times daily as needed IBUPROFEN [id number] Clau Smart LPN 3 ml insulin glargine 100 unt/ml pen injector (1 source) Insulin Analog Start: 03-20-2024 End: 11-27-2024 Insulin Glargine (Basaglar Kwikpen U-100 Insulin) 100 unit/mL (3 mL) insulin pen Discontinued U SC March 20, 2024 12:00am November 27, 2024 2:22pm MULTIPLE VITAMIN (2 sources) take 1 tablet by mouth once daily MULTIVITAMINS TABS One tablet by mouth daily MULTIPLE VITAMIN [id number] Clau Smart LPN MULTIPLE VITAMIN (1 source) take 1 tablet by mouth once daily MULTIVITAMINS TABS One tablet by mouth daily MULTIPLE VITAMIN [id number] Clau Smart LPN oxyCODONE hydrochloride 5 mg oral tablet (10 sources) Opioid Agonist Start: 06-15-2018 End: 06-20-2018 take 5-10 mg by mouth every four hours as needed for pain Oxycodone 5 MG tablet Discontinued 5 - 10 mg PO EVERY 4 HOURS NEEDED as needed for Mod-Severe Pain (4-10/10) 60 5 June 15, 2018 1:00am June 19, 2018 1:00am June 20, 2018 1:09am polyethylene glycol 400 2.5 mg/ml ophthalmic solution (10 sources) Start: 12-09-2021 End: 03-20-2024 apply 0.25 drop(s) into the eye(s) once daily as needed Polyethylene Glycol 400 (Blink Gel Tears) 0.25 % drops,gel Discontinued 1 NMA OPHTHALMIC .QDAY as needed for dry eye(s) December 09, 2021 12:00am March 20, 2024 11:27am Start: 12-09-2021 apply 0.25 drop(s) i nto the eye(s) once daily Polyethylene Glycol 400 (Blink Gel Tears) 0.25 % drops,gel Active 1 DRP OPHTHALMIC .QDAY December 09, 2021 12:00am Start: 12-09-2021 Polyethylene G lycol 400 (Blink Gel Tears) 0.25 % drops,gel Active DRP OPHTHALMIC December 09, 2021 12:00am predniSONE 10 mg oral tablet (12 sources) Start: 06-28-2019 End: 01-29-2020 take 30 mg by mouth once daily Prednisone Discontinued 30 MG PO DAILY June 28, 2019 1:00am January 29, 2020 3:43pm Start: 06-26-2019 End: 01-29-2020 take 3 tablets by mouth once daily Prednisone 10 mg tablet Discontinued 30 mg PO DAILY June 28, 2019 1:00am January 29, 2020 3:43pm Comment on above: It is very important that you take or use this exactly as directed. Do not skip doses or discontinue unless directed by your doctor.Obtain medical advice before taking any non-prescription drugs as some may affect the action of this medication.Take with food or milk. rivaroxaban 20 mg oral tablet (16 sources) Factor Xa Inhibitor Start: 05-07-20 End: 05-07-20 take 1 tablet by mouth once daily in the evening Rivaroxaban (Xarelto) 20 mg tablet Discontinued 20 mg PO EVERY EVENING May 07, 2019 1:00am May 07, 2019 4:52pm Start: 06-04-2016 End: 07-07-2016 take 1 tablet by mouth once daily XARELTO 20 MG TABS One tablet by mouth daily RIVAROXABAN [id number] Faustino Chin MD rosuvastatin 10 mg oral capsule (1 source) HMG-CoA Reductase Inhibitor Start: 05-30-2024 End: 11-27-2024 take 1 tablet by mouth at bedtime Rosuvastatin 10 mg tablet Discontinued 10 mg PO AT BEDTIME May 30, 2024 1:00am November 27, 2024 2:25pm terbinafine 250 mg oral tablet (1 source) Allylamine Antifungal Start: 11-30-2023 End: 03-20-2024 take 1 tablet by mouth once daily Terbinafine Hcl 250 mg tablet Discontinued 250 mg PO DAILY November 30, 2023 12:00am March 20, 2024 11:27am warfarin sodium 5 mg oral tablet (20 sources) Vitamin K Antagonist Start: 01-02-2024 End: 07-16-2024 take 2 tablets by mouth once daily Warfarin 5 mg tablet Discontinued 10 mg PO DAILY June 22, 2024 5:41pm July 16, 2024 11:42am Take 10mg (2 tabs) daily; or use as directed Will discontinue once patient received eliquis from [facility] Please contact the information source for Protocol details. Start: 10-28-2023 End: 06-22-2024 Warfarin 4 mg tablet Discont inued 4 mg PO .COMPLEX 200 October 28, 2023 2:07pm June 22, 2024 5:39pm 4 mg orally 2 tablets ( 8 mg) Mon, , , ; and 2.5 tablets (10 mg) on Tuesday, Tue, and Tuesday; or as directed; please give 200 tablets for dose changes Please contact the information source for Protocol details. Start: 09-01-2023 End: 10-28-2023 take 1 tablet by mouth once daily Warfarin 4 mg tablet Discontinued 4 mg PO DAILY September 07, 2023 11:35am October 28, 2023 2:09pm Please contact the information source for Protocol details. Start: 05-18-2019 End: 01-29-2020 take 1 tablet by mouth four times weekly Warfarin (Coumadin) 2.5 mg tablet Discontinued 2.5 mg PO .COMPLEX July 05, 2019 2:52pm January 29, 2020 4:10pm 2.5 mg PO 4 times per week or as directed for dose changes; Please contact the information source for Protocol details. Start: 05-02-2019 End: 01-29-2020 take 1 tablet by mouth once daily Warfarin 10 mg tablet Discontinued 10 mg PO DAILY July 05, 2019 2:52pm January 29, 2020 4:10pm or otherwise as directed Please contact the information source for Protocol details. Problems Active Problems Problem Classification Problem Date Documented Da te Episodic/Chronic Cardiac dysrhythmias (20 sources) Atrial flutter; Translations: [Paroxysmal atrial flutter] Onset: 06-02-2016 06-02-2016 Chronic Coagulation and hemorrhagic disorders (4 sources) Acquired coagulation disorder; Translations: [Coagulation defect, unspecified] 08-01-2023 Chronic Diabetes mellitus with complications (2 sources) Type 2 diabetes mellitus with diabetic neuropathy, unspecified; Translations: [Type 2 diabetes mellitus with diabetic neuropathy, unspecified] Onset: 05-07-2024 Chronic Disorders of lipid metabolism (20 sources) Hyperlipidemia; Translations: [Hyperlipidemia, unspecified] Onset: 06-02-2016 06-02-2016 Chronic E Codes: Fall (4 sources) Fall in home; Translations: [Unspecified fall, initial encounter] 08-01-2023 Episodic Essential hypertension (20 sources) Hypertensive disorder; Translations: [Essential hypertension] Onset: 06-02-2016 06-02-2016 Chronic Lymphadenitis (1 source) Lymphadenopathy; Translations: [Enlargement of lymph nodes] 12-31-2020 Episodic Malaise and fatigue (12 sources) Fatigue; Translations: [Other fatigue] 01-20-2023 Episodic Other aftercare (10 sources) Long-term current use of anticoagulant; Translations: [assisted (current) use of anticoagulants] 10-31-2019 Episodic Other and unspecified benign neoplasm (10 sources) History of polyp of colon; Translations: [Personal history of colonic polyps] 01-24-2022 Episodic Other ear and sense organ disorders (9 sources) Acute otitis externa; Translations: [Unspecified acute noninfective otitis externa, left ear] 10-28-2022 Episodic Other ear and sense organ disorders (1 source) Unspecified acute noninfective otitis externa, left ear; Translations: [Infective otitis externa, unspecified] 10-28-2022 Episodic Other fractures (1 source) Fracture of rib; Translations: [Fracture of one rib, left side, initial encounter for closed fracture] 08-01-2023 Episodic Other fractures (3 sources) Fracture of left rib; Translations: [Fracture of one rib, left side, initial encounter for closed fracture] 08-09-2023 Episodic Other non-traumatic joint disorders (2 sources) Pain in left hip; Translations: [Pain in left hip] Onset: 02-16-2024 Episodic Other nutritional; endocrine; and metabolic disorders (5 sources) Body mass index (BMI) 36.0-36.9, adult; Translations: [Hereditary hemochromatosis] Onset: 12-10-2003 06-04-2016 Chronic Other nutritional; endocrine; and metabolic disorders (1 source) Hereditary hemochromatosis; Translations: [Hereditary hemochromatosis] Onset: 12-10-2003 11-07-2012 Chronic Other nutritional; endocrine; and metabolic disorders (12 sources) Hemochromatosis; Translations: [Hemochromatosis, unspecified] 12-08-2022 Chronic Other nutritional; endocrine; and metabolic disorders (17 sources) Hemochromatosis, unspecified; Translations: [Other hemochromatosis] Onset: 11-27-2024 Chronic Other nutritional; endocrine; and metabolic disorders (2 sources) Hereditary hemochromatosis; Translations: [Hereditary hemochromatosis] Onset: 11-27-2024 Chronic Other upper respiratory disease (2 sources) Pain in throat 12-31-2020 Episodic Comment on above: SORE THROAT Other upper respiratory disease (2 sources) Nasal congestion; Translations: [Other disease of nasal cavity and sinuses] 09-16-2021 Episodic Other upper respiratory infections (12 sources) Viral upper respiratory tract infection; Translations: [Acute upper respiratory infections of unspecified site] 09-16-2021 Episodic Spondylosis; intervertebral disc disorders; other back problems (4 sources) Spinal stenosis, lumbar region with neurogenic claudication; Translations: [Spinal stenosis, lumbar region without neurogenic claudication] Onset: 02-16-2024 Episodic Unclassified (1 source) Enlarged lymph node 12-31-2020 Unclassified (2 sources) COUGH CONGESTED 09-16-2021 Comment on above: COUGH CONGESTED Unclassified (1 source) Viral URI with cough 09-16-2021 Past or Other Problems Problem Classification Problem Date Documented Da te Episodic/Chronic Abdominal pain (1 source) Right upper quadrant pain; Translations: [Right upper quadrant pain] Onset: 07-08-2024 Episodic Other 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 (3 sources) 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; Translations: [Long-term (current) use of anticoagulants] Onset: 07-28-2024 09-01-2023 Episodic Other screening for suspected conditions (not mental disorders or infectious disease) (2 sources) Encounter for screening for malignant neoplasm of prostate; Translations: [Encounter for screening for malignant neoplasm of prostate] Onset: 05-07-2024 Episodic Results Test Name Value Interpretation Reference Range Facility Absolute lymphocyte countOrd ered By: Gabriela Crews on 11-27-2024 Lymphocytes Auto (Unsp spec) [#/Vol] 1.50 10*3/uL 0.83-4.51 [facility] Absolute neutrophil countOrd ered By: Gabriela Crews on 11-27-2024 Neutrophils (Bld) [#/Vol] 5.3 10*3/uL 2.0-7.7 [facility] Anion gap in Serum or Plasma Ordered By: Gabriela Crews on 11-27-2024 Anion gap [Moles/Vol] 12 mmol/L 5-15 [facility] Automated lymphocyte count a s percentage of total leukocytesOrdered By: Gabriela Crews on 11-27-2024 Lymphocytes/100 WBC Auto (Unsp spec) 19.9 % 19-41 [facility] BUN/creatinine ratioOrdered By: [facility] on 11-27-2024 Urea nitrogen/Creatinine [Mass ratio] 25.0 mg/mg High 10-20 [facility] Basophil percentageOrdered B y: Gabriela Crews on 11-27-2024 Basophils/100 WBC (Bld) 0.4 % 0-1 [facility] Bilirubin, totalOrdered By: Gabriela Crews on 11-27-2024 Bilirubin [Mass/Vol] 0.99 mg/dL 0.00-1.30 [facility] CBC W/Diff, Automatedon Absolute Lymph 1.50 X10 3/uL Normal 0.83-4.51 [facility] Comment on above: Performed By: #### L 501.9910, L300.3900, L500.4100 #### [facility] [address] [place], [place], [id number] Absolute Neut 5.3 X10 3/uL Normal 2.0-7.7 [facility] Comment on above: Performed By: #### L 501.9910, L300.3900, L500.4100 #### [facility] [address] [place], [address] Basophils/100 WBC (Bld) 0.4 % Normal 0-1 [facility] Comment on above: Performed By: #### L 501.9910, L300.3900, L500.4100 #### [facility] [address] [place], [address] Eosinophils/100 WBC (Bld) 1.9 % Normal 0-5 [facility] Comment on above: Performed By: #### L 501.9910, L300.3900, L500.4100 #### [facility] [address] [place], [address] Erythrocyte distribution width (RBC) [Ratio] 13.2 % Normal 11.6-14.6 [facility] Comment on above: Performed By: #### L 501.9910, L300.3900, L500.4100 #### [facility] [address] [place], [address] Hematocrit (Bld) [Volume fraction] 44.7 % Normal 40-54 [facility] Comment on above: Performed By: #### L 501.9910, L300.3900, L500.4100 #### [facility] [address] [place], [address] Hemoglobin (Bld) [Mass/Vol] 16.5 g/dL Normal 13.0-16.5 [facility] Comment on above: Performed By: #### L 501.9910, L300.3900, L500.4100 #### [facility] [address] [place], [address] IG% 0.300 Normal 0.0-0.9 [facility] Comment on above: Result Comment: IG% - Immature Granulocytes (promyelocytes, myelocytes and metamyelocytes) > 1% indicates that a LEFT SHIFT is Present. Performed By: #### L 501.9910, L300.3900, L500.4100 #### [facility] [address] [place], [address] Lymphocytes/100 WBC (Bld) 19.9 % Normal 19-41 [facility] Comment on above: Performed By: #### L 501.9910, L300.3900, L500.4100 #### [facility] [address] [place], [address] MCH (RBC) [Entitic mass] 34.2 pg High 27.0-32.0 [facility] Comment on above: Performed By: #### L 501.9910, L300.3900, L500.4100 #### [facility] [address] [place], [address] MCHC (RBC) [Mass/Vol] 36.9 g/dL High 32-36 [facility] Comment on above: Performed By: #### L 501.9910, L300.3900, L500.4100 #### [facility] [address] [place], [address] MCV (RBC) [Entitic vol] 92.5 fL Normal 80-94 [facility] Comment on above: Performed By: #### L 501.9910, L300.3900, L500.4100 #### [facility] [address] [place], [address] Monocytes/100 WBC (Bld) 7.7 % Normal 0-10 [facility] Comment on above: Performed By: #### L 501.9910, L300.3900, L500.4100 #### [facility] [address] [place], [address] Neutrophils/100 WBC (Bld) 69.8 % Normal 47-70 [facility] Comment on above: Performed By: #### L 501.9910, L300.3900, L500.4100 #### [facility] [address] [place], [address] Nucleated RBC (Bld) [#/Vol] 0 10*3/uL Normal 0-5 [facility] Comment on above: Performed By: #### L 501.9910, L300.3900, L500.4100 #### [facility] [address] [place], [address] Platelet mean volume (Bld) [Entitic vol] 10.6 fL Normal 6.2-12.0 [facility] Comment on above: Performed By: #### L 501.9910, L300.3900, L500.4100 #### [facility] [address] [place], [address] Platelets (Bld) [#/Vol] 196 10*3/uL Normal 150-450 [facility] Comment on above: Performed By: #### L 501.9910, L300.3900, L500.4100 #### [facility] [address] [place], [address] RBC (Bld) [#/Vol] 4.83 10*6/uL Normal 4.6-6.[address] [facility] Comment on above: Performed By: #### L 501.9910, L300.3900, L500.4100 #### [facility] [address] [place], [address] RDW SD 44.9 fl High 35.1-43.9 [facility] Comment on above: Performed By: #### L 501.9910, L300.3900, L500.4100 #### [facility] [address] [place], [address] WBC (Bld) [#/Vol] 7.6 10*3/uL Normal 4.4-11.0 [facility] Comment on above: Performed By: #### L 501.9910, L300.3900, L500.4100 #### [facility] [address] [place], [address] Carbon dioxide, total [Moles /volume] in Central venous bloodOrdered By: Gabriela Mars on 11-27-2024 CO2 [Moles/Vol] 22.9 mmol/L 21.0-32.0 [facility] Chloride assayOrdered By: Ty ra Crews on 11-27-2024 Chloride [Moles/Vol] 99 mmol/L 98-108 [facility] Comprehensive Metabolic Prof ilon 11-27-2024 Albumin [Mass/Vol] 4.4 g/dL Normal 3.4-4.8 [facility] Comment on above: Performed By: #### L 501.9910, L300.3900, L500.4100 #### [facility] [address] [place], [address] Albumin/Globulin [Mass ratio] 1.3 {ratio} Normal 0.9-2.4 [facility] Comment on above: Performed By: #### L 501.9910, L300.3900, L500.4100 #### [facility] [address] [place], [address] ALK PHOS 100 U/L Normal 40-129 [facility] Comment on above: Performed By: #### L 501.9910, L300.3900, L500.4100 #### [facility] [address] [place], [address] ALT [Catalytic activity/Vol] 38 U/L Normal <=46 [facility] Comment on above: Performed By: #### L 501.9910, L300.3900, L500.4100 #### [facility] [address] [place], [address] AST [Catalytic activity/Vol] 38 U/L Normal <=37 [facility] Comment on above: Performed By: #### L 501.9910, L300.3900, L500.4100 #### [facility] [address] [place], [address] Bilirubin [Mass/Vol] 0.99 mg/dL Normal 0.00-1.30 [facility] Comment on above: Performed By: #### L 501.9910, L300.3900, L500.4100 #### [facility] [address] [place], [address] BUN/CRE 25.0 RATIO High 10-20 [facility] Comment on above: Performed By: #### L 501.9910, L300.3900, L500.4100 #### [facility] [address] [place], [address] Calcium [Mass/Vol] 9.9 mg/dL Normal 7.6-11.0 [facility] Comment on above: Performed By: #### L 501.9910, L300.3900, L500.4100 #### [facility] [address] [place], [address] Chloride [Moles/Vol] 99 mmol/L Normal 98-108 [facility] Comment on above: Performed By: #### L 501.9910, L300.3900, L500.4100 #### [facility] [address] [place], [address] CO2 [Moles/Vol] 22.9 mmol/L Normal 21.0-32.0 [facility] Comment on above: Performed By: #### L 501.9910, L300.3900, L500.4100 #### [facility] [address] [place], [address] Creatinine [Mass/Vol] 0.94 mg/dL Normal 0.70-1.20 [facility] Comment on above: Performed By: #### L 501.9910, L300.3900, L500.4100 #### [facility] [address] [place], [address] ECRCL 104.28 ml/min Normal 50-250 [facility] Comment on above: Performed By: #### L 501.9910, L300.3900, L500.4100 #### [facility] [address] [place], [address] GAP 12 Normal 5-15 [facility] Comment on above: Performed By: #### L 501.9910, L300.3900, L500.4100 #### [facility] [address] [place], [address] GFR/1.73 sq M.predicted among non-blacks MDRD (S/P/Bld) [Vol rate/Area] 86 mL/min/{1.73_m2} Normal >60 [facility] Comment on above: Result Comment: mL/m in/1.73m2 CKD-EPI Creatinine Equation (2020) Performed By: #### L 501.9910, L300.3900, L500.4100 #### [facility] [address] [place], [address] Globulin (S) [Mass/Vol] 3.3 g/dL Normal 2.2-4.2 [facility] Comment on above: Performed By: #### L 501.9910, L300.3900, L500.4100 #### [facility] [address] [place], [address] Glucose [Mass/Vol] 125 mg/dL High 70-99 [facility] Comment on above: Performed By: #### L 501.9910, L300.3900, L500.4100 #### [facility] [address] [place], [address] Potassium [Moles/Vol] 4.0 mmol/L Normal 3.3-5.1 [facility] Comment on above: Performed By: #### L 501.9910, L300.3900, L500.4100 #### [facility] [address] [place], [address] Sodium [Moles/Vol] 134 mmol/L Normal 133-145 [facility] Comment on above: Performed By: #### L 501.9910, L300.3900, L500.4100 #### [facility] [address] [place], [address] T PROT 7.7 g/dL Normal 5.9-8.4 [facility] Comment on above: Performed By: #### L 501.9910, L300.3900, L500.4100 #### [facility] [address] [place], [address] Urea nitrogen [Mass/Vol] 24 mg/dL High 4-19 [facility] Comment on above: Performed By: #### L 501.9910, L300.3900, L500.4100 #### [facility] [address] [place], [address] Eosinophil percentageOrdered By: Gabriela Mars on 11-27-2024 Eosinophils/100 WBC (Bld) 1.9 % 0-5 [facility] Erythrocyte distribution wid th ratioOrdered By: Gabriela Mars on 11-27-2024 Erythrocyte distribution width (RBC) [Ratio] 13.2 % 11.6-14.6 [facility] Erythrocyte distribution wid th standard deviationOrdered By: Gabriela Mars on 11-27-2024 Erythrocyte distribution width (RBC) [Ratio] 44.9 fl High 35.1-43.9 [facility] Ferritinon 11-27-2024 Ferritin [Mass/Vol] 153 ng/mL Normal 37-[address] [facility] Comment on above: Performed By: #### L 501.9910, L300.3900, L500.4100 #### [facility] [address] [place], [address] Glomerular filtration rate ( GFR) estimation/1.73 sq m using serum, plasma, or whole bOrdered By: Gabriela Crews on 11-27-2024 GFR/1.73 sq M.predicted among non-blacks MDRD (S/P/Bld) [Vol rate/Area] 86 mL/min/{1.73_m2} >60 [facility] Comment on above: mL/min/1.73m2 CKD-EP I Creatinine Equation (2020) Hematocrit Auto (Bld) [Volum e fraction]Ordered By: Gabriela Crews on 11-27-2024 Hematocrit (Bld) [Volume fraction] 44.7 % 40-54 [facility] Hemoglobin measurementOrdere d By: Gabriela Crews on 11-27-2024 Hemoglobin (Bld) [Mass/Vol] 16.5 g/dL 13.0-16.5 [facility] Immature granulocytes/100 WB C Auto (Bld)Ordered By: Gabriela Crews on 11-27-2024 Immature granulocytes/100 WBC (Bld) 0.300 % 0.0-0.9 [facility] Comment on above: IG% - Immature Granu locytes (promyelocytes, myelocytes and metamyelocytes) > 1% indicates that a LEFT SHIFT is Present. Laboratory - Chemistry and C hemistry - challengeOrdered By: Gabriela Crews on 11-27-2024 AST [Catalytic activity/Vol] 38 U/L <38 [facility] MCV (mean corpuscular volume ) determinationOrdered By: Gabriela Crews on 11-27-2024 MCV (RBC) [Entitic vol] 92.5 fL 80-94 [facility] Mean corpuscular hemoglobin (MCH) determinationOrdered By: Gabriela Crews on 11-27-2024 MCH (RBC) [Entitic mass] 34.2 pg High 27.0-32.0 [facility] Mean corpuscular hemoglobin concentration (MCHC) determinationOrdered By: Gabriela Crews on 11-27-2024 MCHC (RBC) [Mass/Vol] 36.9 g/dL High 32-36 [facility] Mean platelet volume determi nationOrdered By: Gabriela Crews on 11-27-2024 Platelet mean volume (Bld) [Entitic vol] 10.6 fL 6.2-12.0 [facility] Monocyte percentageOrdered B y: Gabriela Crews on 11-27-2024 Monocytes/100 WBC (Bld) 7.7 % 0-10 [facility] Neutrophil percentageOrdered By: Gabriela Crews on 11-27-2024 Neutrophils/100 WBC (Bld) 69.8 % 47-70 [facility] Nucleated red blood cell per centageOrdered By: Gabriela Crews on 11-27-2024 Nucleated RBC/100 WBC (Bld) [Ratio] 0 % 0-5 [facility] Oncology Visit Reporton Oncology Visit Report [facility] [address] [place] [address] OFFICE VISIT Date of Service: 11/27/24 1417 MR#: [id number] Acct: [id number] Name: EDWIGE JOHNSON Rep #: [id number] : 1950 From: Gabriela [address] [employer] -C Age/Sex: 74/M [place] 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 He has been having therapeutic phlebotomies for Ferritin >150. Interval History The patient is presenting to clinic for a routine 6 month follow up. Last phlebotomy 05/30/24. Fatigue mild. Specifically denies sweats, joint pain, abd pain, pruritus, changes in his bowel habits, and swelling/pain of his extremities. [facility] Medical History Acute otitis externa of left ear Acute pharyngitis, unspecified Personal history of colonic polyps Wears hearing aid Wears partial dentures Wears dentures Depression Alcohol use Back pain Meniere disease Non-smoker BiPAP (biphasic positive airway pressure) dependence Leg cramps Hypertension Obesity Paroxysmal atrial flutter Essential (primary) hypertension MAURI (obstructive sleep apnea) Vertigo Cirrhosis Hyperlipidemia Diverticulitis Arthritis Hemochromatosis Surgical History History of liver biopsy History of brain shunt Hx of right cataract extraction Hx of left cataract extraction History of cardioversion (06/11/19) History of hip replacement, total History of eye surgery History of vasectomy History of hernia repair History of colon resection History of back surgery History of appendectomy Family History Mother COPD (chronic obstructive pulmonary disease) Father Heart disease Social History Smoking Status: Never smoker alcohol intake: never ROS ROS Narrative Negative except as documented in the interval HPI Intake Vital Signs 05/30/24 14:08 11/27/24 14:19 Height 6 ft 2 in 6 ft 2 in Weight: 277 lb 4 oz BMI 35.6 BP 116/77 Blood Pressure Location Lt brachial Position Sitting Respiration 18 Pulse 63 Pulse Source Monitor Temp 98.2 F Temperature Source Temporal Artery Pulse Oximetry (%) 93 Oxygen Delivery Method room air Intake Is patient in pain?: No Allergies Penicillins (PCN) Allergy (Severe, Verified 11/27/24 14:22) Hives nabumetone (From Relafen) Allergy (Verified 11/27/24 14:22) Unknown ezetimibe (From Zetia) Adverse Reaction (Intermediate, Verified 11/27/24 14:22) Pain in joints Lusoapa-HHJ-ReP Reductase Inhibitor (Qoarexw-Qfq-Mpe Reductase Inhibitor) Adverse Reaction (Verified 11/27/24 14:22) Unknown Medications ???Medication ???Instructions ???Recorded ???Confirmed ???Type xhbinlli-mer-ppcdm acid 0.4 1 ea PO DAILY SUPPLEMENT 05/22/14 11/27/24 History mg-lycopene 300 mcg-lutein 250 mcg tablet losartan 100 mg tablet 100 mg PO DAILY #90 tabs 01/29/20 11/27/24 Rx Cholecalciferol (Vitamin D3) 1 cap PO DAILY 04/30/20 11/27/24 H istory [Vitamin D3] hydrochlorothiazide 25 mg tablet 25 mg PO DAILY 04/30/20 11/27/24 H istory sertraline 100 mg tablet 100 mg PO DAILY 03/19/21 11/27/24 History meloxicam 15 mg tablet 15 mg PO DAILY 01/20/23 11/27/24 H istory apixaban 5 mg tablet 5 mg PO BID #180 tabs 06/22/2409/18 Rx metoprolol tartrate 50 mg tablet 50 mg PO BID #180 tabs 11/06/24 Rx semaglutide 1 mg/dose (4 mg/3 mL) 1 mg subcut QWEEK 11/27/24 History subcutaneous pen injector (Ozempic) Have you fallen in the past year?: Yes (fell down stairs) Laboratory Tests 12/09/21 11/27/24 14:25 13:37 WBC 7.6 Hgb 15.9 16.5 Hct 44.7 MCV 92.5 Plt Count 196 BUN 24 H Creatinine 0.94 Ferritin 153 Total Bilirubin 0.99 AST 38 ALT 38 Alkaline Phosphatase 100 Exam Physical Exam Const alert, oriented x3 and no apparent distress General Appearance: comfortable HEENT normocephalic Neck no lymphadenopathy and supple Resp normal respiratory effort Cardio regular rate, regular rhythm, S1 normal heart sound and S2 normal heart sound GI normal to inspection, nondistended, normoactive bowel sounds Back/Spine thoracic and lumbar spine normal to inspection Extremity normal to inspection Skin no rashes or lesions noted Neuro oriented x3, CN's II-XII intact bilaterally and moves all extremities Psych mental status grossly normal and cooperative Coding Level of Care Code O (more content not included)... Normal [facility] Platelet countOrdered By: Peewee Crews on 11-27-2024 Platelets (Bld) [#/Vol] 196 10*3/uL 150-450 [facility] Potassium measurement (mass/ volume)Ordered By: Gabriela Crews on 11-27-2024 Potassium (Unsp spec) [Mass/Vol] 4.0 mmol/L 3.3-5.1 [facility] RBC Auto (Bld) [#/Vol]Ordere d By: Gabriela Crews on 11-27-2024 RBC (Bld) [#/Vol] 4.83 10*6/uL 4.6-6.[address] [facility] Serum creatinine measurement (mass/volume)Ordered By: Gabriela Crews on 11-27-2024 Creatinine [Mass/Vol] 0.94 mg/dL 0.70-1.20 [facility] Serum globulin measurementOr dered By: Gabriela Crews on 11-27-2024 Globulin (S) [Mass/Vol] 3.3 g/dL 2.2-4.2 [facility] Serum glucose measurement (m ass/volume)Ordered By: Gabriela Crews on 11-27-2024 Glucose [Mass/Vol] 125 mg/dL High 70-99 [facility] Serum or plasma alanine turcios otransferase (ALT) measurementOrdered By: Gabriela Crews on 11-27-2024 ALT [Catalytic activity/Vol] 38 U/L <47 [facility] Serum or plasma albumin liudmila urement (mass/volume)Ordered By: Gabriela Crews on 11-27-2024 Albumin [Mass/Vol] 4.4 g/dL 3.4-4.8 [facility] Serum or plasma albumin/glob ulin mass ratioOrdered By: Gabriela Crews on 11-27-2024 Albumin/Globulin [Mass ratio] 1.3 {ratio} 0.9-2.4 [facility] Serum or plasma alkaline christel sphatase measurementOrdered By: Gabriela Crews on 11-27-2024 ALP [Catalytic activity/Vol] 100 U/L 40-129 [facility] Serum or plasma calcium liudmila urement (mass/volume)Ordered By: Gabriela Crews on 11-27-2024 Calcium [Mass/Vol] 9.9 mg/dL 7.6-11.0 [facility] Serum or plasma ferritin ash surement (mass/volume)Ordered By: Gabriela Crews on 11-27-2024 Ferritin [Mass/Vol] 153 ng/mL 37-[address] [facility] Serum or plasma urea nitroge n measurement (mass/volume)Ordered By: Gabriela Crews on 11-27-2024 Urea nitrogen [Mass/Vol] 24 mg/dL High 4-19 [facility] Sodium levelOrdered By: Gabriela Crews on 11-27-2024 Sodium [Moles/Vol] 134 mmol/L 133-145 [facility] Total proteinOrdered By: Ryan Crews on 11-27-2024 Protein [Mass/Vol] 7.7 g/dL 5.9-8.4 [facility] White blood cell (WBC) count Ordered By: Gabriela Cerws on 11-27-2024 WBC (Bld) [#/Vol] 7.6 10*3/uL 4.4-11.0 [facility] Prothrombin Time w/INRon INR Coag (PPP) [Relative time] 2.2 {INR} Normal [facility] Comment on above: Performed By: #### L 501.9910, L300.3900, L500.4100 #### [facility] [address] [place], [address] PT Coag (PPP) [Time] 25.0 s High 11.7-14.9 [facility] Comment on above: Performed By: #### L 501.9910, L300.3900, L500.4100 #### [facility] [address] [place], [address] Prothrombin Time w/INRon INR Coag (PPP) [Relative time] 2.3 {INR} Normal [facility] Comment on above: Performed By: #### L 300.3900 #### [facility] [address] [place], [address] PT Coag (PPP) [Time] 25.5 s High 11.7-14.9 [facility] Comment on above: Performed By: #### L 300.3900 #### [facility] [address] [place], [address] Prothrombin Time w/INRon INR Coag (PPP) [Relative time] 2.1 {INR} Normal [facility] Comment on above: Performed By: #### L 300.3900 #### [facility] [address] [place], [address] PT Coag (PPP) [Time] 23.7 s High 11.7-14.9 [facility] Comment on above: Performed By: #### L 891.9085 #### [facility] [address] [place], [address] Urgent Care Visit Reporton 1 08-20-2023 Urgent Care Visit Report [facility] [address], [address] [place], [place] [address] OFFICE VISIT Date of Service: 06/19/24 MR#: [id number] Acct: [id number] Name: EDWIGE JOHNSON Rep #: [id number] : 1950 Provider: CONNER Wilson Age/Sex: 73/M [place] [facility] Status: Signed Intake Vital Signs 05/30/24 15:27 06/19/24 08:51 Height 6 ft 2 in 6 ft 2 in Weight: 305 lb 6 oz BMI 39.2 BP 122/84 H Pulse 54 L Temp 97.6 F L Temp Source Oral Pulse Oximetry (%) 97 Intake Visit Reasons: COUGH/KAVITA/SINUS COMP Chief Complaint: Cough and congestion Allergies Penicillins (PCN) Allergy (Severe, Verified 06/19/24 08:45) Hives nabumetone (From Relafen) Allergy (Verified 06/19/24 08:45) Unknown ezetimibe (From Zetia) Adverse Reaction (Intermediate, Verified 06/19/24 08:45) Pain in joints Azkvgfs-FWS-WeF Reductase Inhibitor (Qdaeubu-Xnm-Efu Reductase Inhibitor) Adverse Reaction (Verified 06/19/24 08:45) Unknown Medications ???Medication ???Instructions ???Recorded ???Confirmed ???Type lpybajrw-znb-pjtqd acid 0.4 1 ea PO DAILY SUPPLEMENT 05/22/14 06/19/24 History mg-lycopene 300 mcg-lutein 250 mcg tablet losartan 100 mg tablet 100 mg PO DAILY #90 tabs 01/29/20 06/19/24 Rx Cholecalciferol (Vitamin D3) 1 cap PO DAILY 04/30/20 06/19/24 History [Vitamin D3] hydrochlorothiazide 25 mg tablet 25 mg PO DAILY 04/30/20 06/19/24 History sertraline 100 mg tablet 100 mg PO DAILY 03/19/21 06/19/24 History meloxicam 15 mg tablet 15 mg PO DAILY 01/20/23 06/19/24 History warfarin 4 mg tablet 4 mg PO .COMPLEX #200 tabs 10/28/23 06/19/24 Rx metoprolol tartrate 50 mg tablet 50 mg PO BID 12/28/23 06/19/24 History warfarin 5 mg tablet 10 mg PO DAILY #180 tabs 01/02/24 06/19/24 Rx insulin glargine 100 unit/mL (3 unit subcut 03/20/24 06/19/24 History mL) subcutaneous pen (Basaglar KwikPen U-100 Insulin) rosuvastatin 10 mg tablet 10 mg PO QHS 05/30/24 06/19/24 History benzonatate 100 mg capsule 200 mg (2 x 100 mg) PO TID PRN 06/19/24 06/19/24 Rx cough #30 caps doxycycline monohydrate 100 mg 100 mg PO BID 10 days #20 tabs 06/19/24 06/19/24 Rx tablet Have you fallen in the past year?: No Nurse's Note: Patient has been congested for 8 days. Patient has a ST,Laryngitis and he is coughing up phlegm and blowing green snot. [facility] Medical History Acute otitis externa of left ear Acute pharyngitis, unspecified Personal history of colonic polyps Wears hearing aid Wears partial dentures Wears dentures Depression Alcohol use Back pain Meniere disease Non-smoker BiPAP (biphasic positive airway pressure) dependence Leg cramps Hypertension Obesity Paroxysmal atrial flutter Essential (primary) hypertension MAURI (obstructive sleep apnea) Vertigo Cirrhosis Hyperlipidemia Diverticulitis Arthritis Hemochromatosis Surgical History History of liver biopsy History of brain shunt Hx of right cataract extraction Hx of left cataract extraction History of cardioversion (06/11/19) History of hip replacement, total History of eye surgery History of vasectomy History of hernia repair History of colon resection History of back surgery History of appendectomy Family History Mother COPD (chronic obstructive pulmonary disease) Father Heart disease Social History Smoking Status: Never smoker alcohol intake: never HPI HPI Chief Complaint: Cough and congestion Details: EDWIGE JOHNSON, is a 73 M who presents to the office today for complaint of cough and congestion for the past 8 days. Patient states that he has had a sore throat and sinus pressure as well as pain and sinus headache. He denies fever, chills, sweats. No hemoptysis, shortness of breath or difficulty breathing. No loss of taste or smell. No other associated symptoms or alleviating/aggravating factors. ROS Const Constitutional: No other (As above) Exam Const General: cooperative and healthy appearing HENMT Head: normal to inspection Ears: hearing grossly normal bilaterally, TM's normal bilaterally and EAC's normal Nose: nasal discharge purulent Face and sinus: sinus tenderness frontal and maxillary Mouth: oral mucosae normal Throat: abnormal tonsil bilaterally erythema and hypertrophy 1+ and postnasal drainage Resp Effort Inspection: normal respiratory effort Auscultation: Bilateral: Clear to Auscultation Cardio Rate: regular rate Rhythm: regular rhythm Neuro General: CN's II-XI intact bilaterally Psych Appearance: grossly normal Mental Status: mental status grossly normal Coding Level of Care Code Off vis,est,level (more content not included)... Normal [facility] Prothrombin Time w/INRon INR Coag (PPP) [Relative time] 4.1 {INR} Invalid Interpretation Code [facility] Comment on above: Result Comment: CRIT ICAL VALUE CALLED TO ROSEY TANG ([facility]) 06/14/24 [address] RESULTS READ BACK BY SAME. Performed By: #### L 501.9910, L300.3900, L500.4100 #### [facility] [address] [place], [place], [id number] PT Coag (PPP) [Time] 39.0 s High 11.7-14.9 [facility] Comment on above: Performed By: #### L 501.9910, L300.3900, L500.4100 #### [facility] [address] [place], [address] Abdomen Limitedon 06-06-2024 Abdomen Limited [facility] [address] [place] [address] Abdomen Limited MR#: [id number] Acct: [id number] Name: EDWIGE JOHNSON Rep #: [id number] : 1950 M 73 From: Triston Flower MD PCP: Dr. Ada Alexander DO Status: REG CLI Study: Abdomen Limited Date of Exam: 06/06/24 Exam# [id number] Ordering Dr: Gabriela Crews NP, NP [id number] EXAM: US ABDOMEN LIMITED, RIGHT UPPER QUADRANT CLINICAL INDICATION: RUQ; hemachromatosis TECHNIQUE: Real-time ultrasound of the right upper quadrant with image documentation. COMPARISON: June 14, 2023 FINDINGS: LIVER: 15.5 cm liver is echogenic/fatty. No intrahepatic biliary ductal dilation. GALLBLADDER: Solitary gallstone measuring 6 mm. Sonographic Rutledge''s sign is absent. Gallbladder wall measures 2 mm. No pericholecystic fluid. COMMON BILE DUCT: Common bile duct measures 4 mm. The proximal common bile duct is within normal limits for the patient''s age. PANCREAS: Echogenic pancreas with tail not visualized. No pancreatic ductal dilatation. RIGHT KIDNEY: Right kidney is unremarkable except for note of a 3.5 cm exophytic cyst at the interpolar level, which is likely benign. There is no hydronephrosis. No shadowing calculus. OTHER VASCULATURE: Main portal vein is patent with normal direction of blood flow. US/Abdomen Limited IMPRESSION: 1. Fatty liver. 2. Cholelithiasis without acute cholecystitis. 3. Right renal cyst is benign. It did Electronically Signed: Triston Flower MD at 20:11 EST , CC: DEVAUGHN Crews; Dr. Ada Alexander DO Director Strategic Planning: Signed Normal [facility] CBC W/Diff, Automatedon 12-0 4-2024 Absolute Lymph 1.59 X10 3/uL Normal 0.83-4.51 [facility] Comment on above: Performed By: #### L 501.9910, L300.3900, L500.4100 #### [facility] [address] [place], [address] Absolute Neut 4.6 X10 3/uL Normal 2.0-7.7 [facility] Comment on above: Performed By: #### L 501.9910, L300.3900, L500.4100 #### [facility] [address] [place], [address] Basophils/100 WBC (Bld) 0.3 % Normal 0-1 [facility] Comment on above: Performed By: #### L 501.9910, L300.3900, L500.4100 #### [facility] [address] [place], [address] Eosinophils/100 WBC (Bld) 2.1 % Normal 0-5 [facility] Comment on above: Performed By: #### L 501.9910, L300.3900, L500.4100 #### [facility] [address] [place], [address] Erythrocyte distribution width (RBC) [Ratio] 13.1 % Normal 11.6-14.6 [facility] Comment on above: Performed By: #### L 501.9910, L300.3900, L500.4100 #### [facility] [address] [place], [address] Hematocrit (Bld) [Volume fraction] 43.7 % Normal 40-54 [facility] Comment on above: Performed By: #### L 501.9910, L300.3900, L500.4100 #### [facility] [address] [place], [address] Hemoglobin (Bld) [Mass/Vol] 15.8 g/dL Normal 13.0-16.5 [facility] Comment on above: Performed By: #### L 501.9910, L300.3900, L500.4100 #### [facility] [address] [place], [address] IG% 0.400 Normal 0.0-0.9 [facility] Comment on above: Result Comment: IG% - Immature Granulocytes (promyelocytes, myelocytes and metamyelocytes) > 1% indicates that a LEFT SHIFT is Present. Performed By: #### L 501.9910, L300.3900, L500.4100 #### [facility] [address] [place], [address] Lymphocytes/100 WBC (Bld) 22.8 % Normal 19-41 [facility] Comment on above: Performed By: #### L 501.9910, L300.3900, L500.4100 #### [facility] [address] [place], [address] MCH (RBC) [Entitic mass] 33.8 pg High 27.0-32.0 [facility] Comment on above: Performed By: #### L 501.9910, L300.3900, L500.4100 #### [facility] [address] [place], [address] MCHC (RBC) [Mass/Vol] 36.2 g/dL High 32-36 [facility] Comment on above: Performed By: #### L 501.9910, L300.3900, L500.4100 #### [facility] [address] [place], [address] MCV (RBC) [Entitic vol] 93.4 fL Normal 80-94 [facility] Comment on above: Performed By: #### L 501.9910, L300.3900, L500.4100 #### [facility] [address] [place], [address] Monocytes/100 WBC (Bld) 8.0 % Normal 0-10 [facility] Comment on above: Performed By: #### L 501.9910, L300.3900, L500.4100 #### [facility] [address] [place], [address] Neutrophils/100 WBC (Bld) 66.4 % Normal 47-70 [facility] Comment on above: Performed By: #### L 501.9910, L300.3900, L500.4100 #### [facility] [address] [place], [address] Nucleated RBC (Bld) [#/Vol] 0 10*3/uL Normal 0-5 [facility] Comment on above: Performed By: #### L 501.9910, L300.3900, L500.4100 #### [facility] [address] [place], [address] Platelet mean volume (Bld) [Entitic vol] 10.9 fL Normal 6.2-12.0 [facility] Comment on above: Performed By: #### L 501.9910, L300.3900, L500.4100 #### [facility] [address] [place], [address] Platelets (Bld) [#/Vol] 173 10*3/uL Normal 150-450 [facility] Comment on above: Performed By: #### L 501.9910, L300.3900, L500.4100 #### [facility] [address] [place], [address] RBC (Bld) [#/Vol] 4.68 10*6/uL Normal 4.6-6.[address] [facility] Comment on above: Performed By: #### L 501.9910, L300.3900, L500.4100 #### [facility] [address] [place], [address] RDW SD 44.5 fl High 35.1-43.9 [facility] Comment on above: Performed By: #### L 501.9910, L300.3900, L500.4100 #### [facility] [address] [place], [address] WBC (Bld) [#/Vol] 7.0 10*3/uL Normal 4.4-11.0 [facility] Comment on above: Performed By: #### L 501.9910, L300.3900, L500.4100 #### [facility] [address] [place], [address] Comprehensive Metabolic Prof ilon 05-30-2024 Albumin [Mass/Vol] 3.7 g/dL Normal 3.2-5.0 [facility] Comment on above: Order Comment: 1 Performed By: #### L 501.9910, L300.3900, L500.4100 #### [facility] [address] [place], [address] Albumin/Globulin [Mass ratio] 0.9 {ratio} Normal 0.9-2.4 [facility] Comment on above: Order Comment: 1 Performed By: #### L 501.9910, L300.3900, L500.4100 #### [facility] [address] [place], [address] ALK P 115 U/L Normal 45-117 [facility] Comment on above: Order Comment: 1 Performed By: #### L 501.9910, L300.3900, L500.4100 #### [facility] [address] [place], [address] ALT [Catalytic activity/Vol] 73 U/L High 16-61 [facility] Comment on above: Order Comment: 1 Performed By: #### L 501.9910, L300.3900, L500.4100 #### [facility] [address] [place], [address] AST [Catalytic activity/Vol] 62 U/L High 15-37 [facility] Comment on above: Order Comment: 1 Result Comment: Slig ht Hemolysis, Result may be falsely increased. Performed By: #### L 501.9910, L300.3900, L500.4100 #### [facility] [address] [place], [address] Bilirubin [Mass/Vol] 0.70 mg/dL Normal 0.20-1.00 [facility] Comment on above: Order Comment: 1 Result Comment: For patients on eltrombopag therapy, use of Dimension [place] TBIL is not recommended. Performed By: #### L 501.9910, L300.3900, L500.4100 #### [facility] [address] [place], [address] BUN/CRE 27.4 RATIO High 10-20 [facility] Comment on above: Order Comment: 1 Performed By: #### L 501.9910, L300.3900, L500.4100 #### [facility] [address] [place], [address] CA,Total 9.2 mg/dL Normal 8.5-10.1 [facility] Comment on above: Order Comment: 1 Performed By: #### L 501.9910, L300.3900, L500.4100 #### [facility] [address] [place], [address] Chloride [Moles/Vol] 105 mmol/L Normal 98-107 [facility] Comment on above: Order Comment: 1 Performed By: #### L 501.9910, L300.3900, L500.4100 #### [facility] [address] [place], [address] CO2 [Moles/Vol] 25.0 mmol/L Normal 21.0-32.0 [facility] Comment on above: Order Comment: 1 Performed By: #### L 501.9910, L300.3900, L500.4100 #### [facility] [address] [place], [address] Creatinine [Mass/Vol] 0.91 mg/dL Normal 0.70-1.30 [facility] Comment on above: Order Comment: 1 Result Comment: The validity of the calculated GFR GFRAA in patients over 70 years has not been determined. Clinical correlation is essential. Performed By: #### L 501.9910, L300.3900, L500.4100 #### [facility] [address] [place], [address] ECRCL 109.30 ml/min Normal [facility] Comment on above: Order Comment: 1 Performed By: #### L 501.9910, L300.3900, L500.4100 #### [facility] [address] [place], [address] EST GFR - AA 105 mL/min Normal >60 [facility] Comment on above: Order Comment: 1 Result Comment: Afri can [place] GFR Calc Performed By: #### L 501.9910, L300.3900, L500.4100 #### [facility] [address] [place], [address] GAP 6 Normal 5-15 [facility] Comment on above: Order Comment: 1 Performed By: #### L 501.9910, L300.3900, L500.4100 #### [facility] [address] [place], [address] GFR/1.73 sq M.predicted among non-blacks MDRD (S/P/Bld) [Vol rate/Area] 87 mL/min/{1.73_m2} Normal >60 [facility] Comment on above: Order Comment: 1 Result Comment: Non- GFR Calc Performed By: #### L 501.9910, L300.3900, L500.4100 #### [facility] [address] [place], [address] Globulin (S) [Mass/Vol] 4.0 g/dL Normal 2.2-4.2 [facility] Comment on above: Order Comment: 1 Performed By: #### L 501.9910, L300.3900, L500.4100 #### [facility] [address] [place], [address] Glucose [Mass/Vol] 162 mg/dL High 74-106 [facility] Comment on above: Order Comment: 1 Result Comment: Fast ing Glucose result greater than or equal to 126 mg/dL suggests DIABETES MELLITUS per A.D.A. criteria. Performed By: #### L 501.9910, L300.3900, L500.4100 #### [facility] [address] [place], [address] Potassium [Moles/Vol] 4.0 mmol/L Normal 3.5-5.1 [facility] Comment on above: Order Comment: 1 Result Comment: Slig ht Hemolysis, Result may be falsely increased. Performed By: #### L 501.9910, L300.3900, L500.4100 #### [facility] [address] [place], [address] Sodium [Moles/Vol] 137 mmol/L Normal 136-145 [facility] Comment on above: Order Comment: 1 Performed By: #### L 501.9910, L300.3900, L500.4100 #### [facility] [address] [place], [address] T PROT 7.7 g/dL Normal 6.4-8.2 [facility] Comment on above: Order Comment: 1 Performed By: #### L 501.9910, L300.3900, L500.4100 #### [facility] [address] [place], [address] Urea nitrogen [Mass/Vol] 25 mg/dL High 7-18 [facility] Comment on above: Order Comment: 1 Performed By: #### L 501.9910, L300.3900, L500.4100 #### [facility] [address] [place], [address] Ferritinon 05-30-2024 Ferritin [Mass/Vol] 156 ng/mL Normal 26-[address] [facility] Comment on above: Order Comment: 1 Performed By: #### L 501.9910, L300.3900, L500.4100 #### [facility] [address] [place], [address] LDHon 05-30-2024 LDH 258 U/L High 87-241 [facility] Comment on above: Order Comment: 1 Result Comment: Slig ht Hemolysis, Result may be falsely increased. Performed By: #### L 501.9910, L300.3900, L500.4100 #### [facility] [address] [place], [address] Lactate dehydrogenase (LDH) measurementOrdered By: Roque Kang on 05-30-2024 LDH [Catalytic activity/Vol] 258 U/L High 87-241 [facility] Comment on above: Slight Hemolysis, Re sult may be falsely increased. Oncology Visit Reporton Oncology Visit Report [facility] [address] [place] [address] OFFICE VISIT Date of Service: 05/30/24 1406 MR#: [id number] Acct: [id number] Name: EDWIGE JOHNSON Rep #: [id number] : 1950 From: Gabriela Castillo Age/Sex: 73/M [place] 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 He has been having therapeutic phlebotomies for Ferritin >150. Interval History The patient is presenting to clinic for a routine 6 month follow up. Fatigue mild. Specifically denies sweats, joint pain, abd pain, pruritus, changes in his bowel habits, and swelling/pain of his extremities. [facility] Medical History Acute otitis externa of left ear Acute pharyngitis, unspecified Personal history of colonic polyps Wears hearing aid Wears partial dentures Wears dentures Depression Alcohol use Back pain Meniere disease Non-smoker BiPAP (biphasic positive airway pressure) dependence Leg cramps Hypertension Obesity Paroxysmal atrial flutter Essential (primary) hypertension MAURI (obstructive sleep apnea) Vertigo Cirrhosis Hyperlipidemia Diverticulitis Arthritis Hemochromatosis Surgical History History of liver biopsy History of brain shunt Hx of right cataract extraction Hx of left cataract extraction History of cardioversion (06/11/19) History of hip replacement, total History of eye surgery History of vasectomy History of hernia repair History of colon resection History of back surgery History of appendectomy Family History Mother COPD (chronic obstructive pulmonary disease) Father Heart disease Social History Smoking Status: Never smoker alcohol intake: never ROS ROS Narrative Negative except as documented in the interval HPI Intake Vital Signs 11/30/23 15:06 05/30/24 14:08 Height 6 ft 2 in 6 ft 2 in Weight: 300 lb 3 oz BMI 38.5 BP 127/82 H Blood Pressure Location Rt brachial Position Sitting Respiration 18 Pulse 54 L Pulse Source Monitor Temp 97.8 F Temperature Source Oral Pulse Oximetry (%) 93 Oxygen Delivery Method room air Intake Is patient in pain?: No Allergies Penicillins (PCN) Allergy (Severe, Verified 05/30/24 14:10) Hives nabumetone (From Relafen) Allergy (Verified 05/30/24 14:10) Unknown ezetimibe (From Zetia) Adverse Reaction (Intermediate, Verified 05/30/24 14:10) Pain in joints Uahuvwx-WRZ-SpC Reductase Inhibitor (Hntstap-Ixb-Oki Reductase Inhibitor) Adverse Reaction (Verified 05/30/24 14:10) Unknown Medications ???Medication ???Instructions ???Recorded ???Confirmed ???Type fkaxfaks-rba-quryf acid 0.4 1 ea PO DAILY SUPPLEMENT 05/22/14 05/30/24 History mg-lycopene 300 mcg-lutein 250 mcg tablet losartan 100 mg tablet 100 mg PO DAILY #90 tabs 01/29/20 05/30/24 Rx Cholecalciferol (Vitamin D3) 1 cap PO DAILY 04/30/20 05/30/24 History [Vitamin D3] hydrochlorothiazide 25 mg tablet 25 mg PO DAILY 04/30/20 05/30/24 History sertraline 100 mg tablet 100 mg PO DAILY 03/19/21 05/30/24 History meloxicam 15 mg tablet 15 mg PO DAILY 01/20/23 05/30/24 History warfarin 4 mg tablet 4 mg PO .COMPLEX #200 tabs 10/28/23 05/30/24 Rx metoprolol tartrate 50 mg tablet 50 mg PO BID 12/28/23 05/30/24 History warfarin 5 mg tablet 10 mg PO DAILY #180 tabs 01/02/24 05/30/24 Rx insulin glargine 100 unit/mL (3 unit subcut 03/20/24 05/30/24 History mL) subcutaneous pen (Basaglar KwikPen U-100 Insulin) rosuvastatin 10 mg tablet 10 mg PO QHS 05/30/24 05/30/24 History Have you fallen in the past year?: Yes Laboratory Results 05/30/24 13:40 WBC 7.0 Hgb 15.8 Hct 43.7 MCV 93.4 Plt Count 173 Sodium 137 Potassium 4.0 Chloride 105 Carbon Dioxide 25.0 Anion Gap 6 BUN 25 H Creatinine 0.91 Glucose 162 H Calcium 9.2 Ferritin 156 Total Bilirubin 0.70 AST 62 H ALT 73 H Lactate Dehydrogenase 258 H Exam Physical Exam Const alert, oriented x3 and no apparent distress General Appearance: comfortable HEENT normocephalic Neck no lymphadenopathy and supple Resp normal respiratory effort Cardio regular rate, regular rhythm, S1 normal heart sound and S2 normal heart sound GI normal to inspection, nondistended, normoactive bowel sounds Back/Spine thoracic and lumbar spine normal to inspection Extremity normal to inspection Skin no rash (more content not included)... Normal [facility] Prothrombin Time w/INRon INR Coag (PPP) [Relative time] 2.7 {INR} Normal [facility] Comment on above: Performed By: #### L 300.3900 #### [facility] [address] [place], [address] PT Coag (PPP) [Time] 28.8 s High 11.7-14.9 [facility] Comment on above: Performed By: #### L 300.3900 #### [facility] [address] [place], [address] Lipid Profileon 05-11-2024 Cholesterol [Mass/Vol] 226 mg/dL High 200 [facility] Comment on above: Result Comment: <200 mg/dL Desirable 200-240 mg/dL Borderline >240 mg/dL High Risk Performed By: #### L 501.9910, L300.3900, L500.4100 #### [facility] [address] [place], [address] Cholesterol in HDL [Mass/Vol] 35 mg/dL Low [facility] Comment on above: Result Comment: The drugs N-Acetylcysteine and Metamizole may falsely depress this assay. Reference Range HDL <40 mg/dL Low HDL Cholesterol HDL >or= 60 mg/dL High HDL Cholesterol Performed By: #### L 501.9910, L300.3900, L500.4100 #### [facility] [address] [place], [address] Cholesterol in LDL [Mass/Vol] 147 mg/dL High 0-130 [facility] Comment on above: Performed By: #### L 501.9910, L300.3900, L500.4100 #### [facility] [address] [place], [address] Cholesterol in VLDL [Mass/Vol] 44 mg/dL High 5-40 [facility] Comment on above: Performed By: #### L 501.9910, L300.3900, L500.4100 #### [facility] [address] [place], [address] Triglyceride [Mass/Vol] 220 mg/dL High [facility] Comment on above: Result Comment: The drugs N-Acetylcysteine and Metamizole may falsely depress this assay. Serum Triglycerides Reference Interval Normal <150 mg/dL Borderline high 150 - 199 mg/dL High 200 - 499 mg/dL Very High > or = 500 mg/dL Performed By: #### L 501.9910, L300.3900, L500.4100 #### [facility] [address] [place], [address] PSA,Total - Annual Screenon 05-11-2024 PSA,TOT SCREEN 2.56 ng/mL Normal 0.00-4.00 [facility] Comment on above: Result Comment: This test was performed using the TPSA assay method for the [employer] chemistry system. Values obtained with different assay methods cannot be used interchangably. When changing PSA assays in the course of monitoring a patient, additional sequential testing should be carried out to confirm baseline values. Performed By: #### L 501.9910, L300.3900, L500.4100 #### [facility] [address] [place], [address] Prothrombin Time w/INRon INR Coag (PPP) [Relative time] 2.6 {INR} Normal [facility] Comment on above: Performed By: #### L 501.9910, L300.3900, L500.4100 #### [facility] [address] [place], [address] PT Coag (PPP) [Time] 27.5 s High 11.7-14.9 [facility] Comment on above: Performed By: #### L 501.9910, L300.3900, L500.4100 #### [facility] [address] [place], [address] Microalb:Creat Ratio,Random URon 05-07-2024 Creatinine [Mass/Vol] 61.00 mg/dL Normal NO RAN GE EST. [facility] Comment on above: Performed By: #### L 502.0250 #### [facility] [address] [place], [address] MALB:CRE 40.0 mg/g CRE High <30 mg/g CRE [facility] Comment on above: Performed By: #### L 502.0250 #### [facility] [address] [place], [address] MICROALBUMIN,UR 24.4 mg/L Normal NO RANGE EST. [facility] Comment on above: Performed By: #### L 502.0250 #### [facility] [address] [place], [address] Prothrombin Time w/INRon INR Coag (PPP) [Relative time] 3.3 {INR} Normal [facility] [facility] Comment on above: Performed By: #### L 300.3900 #### [facility] [address] [place], [address] PT Coag (PPP) [Time] 33.0 s High 11.7-14.9 [facility] Comment on above: Performed By: #### L 300.3900 #### [facility] [address] [place], [address] Prothrombin Time w/INRon INR Coag (PPP) [Relative time] 2.9 {INR} Normal [facility] Comment on above: Performed By: #### L 300.3900 #### [facility] [address] [place], [address] PT Coag (PPP) [Time] 29.9 s High 11.7-14.9 [facility] Comment on above: Performed By: #### L 300.3900 #### [facility] [address] [place], [address] Cardiology Visit Reporton Cardiology Visit Report [facility] [address] [place] [address] OFFICE VISIT Date of Service: 03/20/24 MR#: [id number] Acct: [id number] Name: EDWIGE JOHNSON Rep #: [id number] : 1950 Provider: CONNER Encarnacion Age/Sex: 73/M [place] [facility] Status: Signed HPI HPI History of Present Illness Details: Edwige Johnson is a 73 year-old gentleman that presents here today for a cardiovascular follow-up. He has a history of atrial flutter with a cardioversion in 2016 and 2018. He also has a history of hypertension and hyperlipidemia. He also does have a history of hemochromatosis and does follow with hematology. Pt ws in the ER in December of 2022 and noted to be in Atrial flutter. In 08/2023 was scheduled to undergo a DCCV, His pre procedure EKG demonstrated Sinus Asad. From a cardiac standpoint, patient is doing well. He does not have any chest discomfort/heaviness/tight ness. His exercise tolerance is stable for his age. He does not have any worsening symptoms of shortness of breath. He denies any PND. He does not have any orthopnea. He does not have any symptoms of congestive heart failure. He does not have any palpitations that he is aware of. He does not have any lightheadedness or dizziness. He does not have any near-syncope or syncope. He does not have any lower extremity edema. He does not have any symptoms of claudication. Intake Vital Signs 11/30/23 15:06 03/20/24 11:24 03/20/24 11:29 Height 6 ft 2 in 6 ft 2 in 6 ft 2 in Weight: 298 lb BMI 38.2 BP 151/88 H 138/78 H Blood Pressure Location Lt brachial Position Sitting Respiration 18 Pulse 57 L Pulse Source Monitor Pulse Oximetry (%) 95 Intake Visit Reasons: 6 m fu Supervisory Investigative Specialist Required: No Is patient in pain?: No Allergies Penicillins (PCN) Allergy (Severe, Verified 03/20/24 11:26) Hives nabumetone (From Relafen) Allergy (Verified 03/20/24 11:26) Unknown ezetimibe (From Zetia) Adverse Reaction (Intermediate, Verified 03/20/24 11:26) Pain in joints Thchzqr-SAI-UtN Reductase Inhibitor (Yabuygx-Bnp-Kui Reductase Inhibitor) Adverse Reaction (Verified 03/20/24 11:26) Unknown Medications ???Medication ???Instructions ???Recorded ???Confirmed ???Type tzfwkcdh-[id number] acid 0.4 1 ea PO DAILY SUPPLEMENT 05/22/14 11/30/23 History mg-lycopene 300 mcg-lutein 250 mcg tablet losartan 100 mg tablet 100 mg PO DAILY #90 tabs 01/29/20 03/20/24 Rx Cholecalciferol (Vitamin D3) 1 cap PO DAILY 04/30/20 03/20/24 History [Vitamin D3] hydrochlorothiazide 25 mg tablet 25 mg PO DAILY 04/30/20 03/20/24 History sertraline 100 mg tablet 100 mg PO DAILY 03/19/21 03/20/24 History meloxicam 15 mg tablet 15 mg PO DAILY 01/20/23 03/20/24 History warfarin 4 mg tablet 4 mg PO .COMPLEX #200 tabs 10/28/23 03/20/24 Rx metoprolol tartrate 50 mg tablet 50 mg PO BID 12/28/23 03/20/24 History warfarin 5 mg tablet 10 mg PO DAILY #180 tabs 01/02/24 03/20/24 Rx insulin glargine 100 unit/mL (3 unit subcut 03/20/24 03/20/24 History mL) subcutaneous pen (Basaglar KwikPen U-100 Insulin) Have you fallen in the past year?: No PFSH Medical History Acute otitis externa of left ear Acute pharyngitis, unspecified Personal history of colonic polyps Wears hearing aid Wears partial dentures Wears dentures Depression Alcohol use Back pain Meniere disease Non-smoker BiPAP (biphasic positive airway pressure) dependence Leg cramps Hypertension Obesity Paroxysmal atrial flutter Essential (primary) hypertension MAURI (obstructive sleep apnea) Vertigo Cirrhosis Hyperlipidemia Diverticulitis Arthritis Hemochromatosis Surgical History History of liver biopsy History of brain shunt Hx of right cataract extraction Hx of left cataract extraction History of cardioversion (06/11/19) History of hip replacement, total History of eye surgery History of vasectomy History of hernia repair History of colon resection History of back surgery History of appendectomy Family History Mother COPD (chronic obstructive pulmonary disease) Father Heart disease Social History Smoking Status: Never smoker alcohol intake: never ROS Const Const: Negative for fatigue, weakness, headache(s), frequent falls, difficulty sleeping or excessive sweating Eyes Eyes: Negative for loss of peripheral vision, transient loss of vision, blurry vision, double vision or tunnel vision ENT ENT: Negative for headache(s), dizziness, Nosebleed/epistaxis or balance problems Cardio Chest Pain: No Palpitati (more content not included)... Normal [facility] Prothrombin Time w/INRon INR Coag (PPP) [Relative time] 2.2 {INR} Normal [facility] Comment on above: Performed By: #### L 501.9910, L300.3900, L500.4100 #### [facility] [address] [place], [address] PT Coag (PPP) [Time] 24.7 s High 11.7-14.9 [facility] Comment on above: Performed By: #### L 501.9910, L300.3900, L500.4100 #### [facility] [address] [place], [address] Prothrombin Time w/INRon INR Coag (PPP) [Relative time] 1.9 {INR} Normal [facility] Comment on above: Performed By: #### L 300.3900 #### [facility] [address] [place], [address] PT Coag (PPP) [Time] 21.7 s High 11.7-14.9 [facility] Comment on above: Performed By: #### L 300.3900 #### [facility] [address] [place], [address] Prothrombin Time w/INRon INR Coag (PPP) [Relative time] 1.9 {INR} Normal [facility] Comment on above: Order Comment: Comme nts: STANDING ORDER-MAY DO FINGERSTICK Performed By: #### L 501.9910, L300.3900, L500.4100 #### [facility] [address] [place], [address] PT Coag (PPP) [Time] 21.2 s High 11.7-14.9 [facility] Comment on above: Order Comment: Comme nts: STANDING ORDER-MAY DO FINGERSTICK Performed By: #### L 501.9910, L300.3900, L500.4100 #### [facility] [address] [place], [address] Laboratory - CoagulationOrde red By: Latoya Wadsworth on 10-20-2023 INR Coag (Bld) [Relative time] 1.5 {INR} [facility] PT Coag (PPP) [Time] 18.3 s 11.7-14.9 [facility] - CoagulationOrde red By: Latoya Wadsworth on 09-22-2023 INR Coag (Bld) [Relative time] 1.2 {INR} [facility] PT Coag (PPP) [Time] 14.8 s 11.7-14.9 [facility] Whole blood hemoglobin A1c/t otal hemoglobin ratio (mass fraction)Ordered By: Yoshi Sanderson on 07-11-2023 HbA1c (Bld) [Mass fraction] % 3.8-5.6 [facility] Comment on above: Normal < 5.7 % Predi abetic 5.7 - 6.4 % Diabetic >or= 6.5 % Please note range changes. Absolute lymphocyte countOrd ered By: Roque Kang on 06-01-2023 Lymphocytes Auto (Unsp spec) [#/Vol] 1.32 10*3/uL 0.83-4.51 [facility] Basophil percentageOrdered B y: Roque Kang on 06-01-2023 Basophils/100 WBC (Bld) 0.5 % 0-1 [facility] Bilirubin [Mass/Vol] 0.70 mg/dL 0.20-1.00 [facility] Comment on above: For patients on eltr ombopag therapy, use of Dimension [place] TBIL is not recommended. Chloride [Moles/Vol] 103 mmol/L 98-107 [facility] Eosinophils/100 WBC (Bld) 1.6 % 0-5 [facility] Glucose [Mass/Vol] 225 mg/dL 74-106 [facility] Comment on above: Glucose result great er than or equal to 200 mg/dLsuggests DIABETES MELLITUS per A.D.A. criteria. LDH [Catalytic activity/Vol] 233 U/L 87-241 [facility] Neutrophils (Bld) [#/Vol] 4.4 10*3/uL 2.0-7.7 [facility] Neutrophils/100 WBC (Bld) 69.2 % 47-70 [facility] Potassium [Moles/Vol] 3.9 mmol/L 3.5-5.1 [facility] Protein [Mass/Vol] 7.6 g/dL 6.4-8.2 [facility] Sodium [Moles/Vol] 135 mmol/L 136-145 [facility] WBC (Bld) [#/Vol] 6.4 10*3/uL 4.4-11.0 [facility] Blood erythrocytes count (nu mber/volume)Ordered By: Roque Kang on 06-01-2023 RBC (Bld) [#/Vol] 4.90 10*6/uL 4.6-6.[address] [facility] Blood hemoglobin measurement (mass/volume)Ordered By: Roque Kang on 06-01-2023 Hemoglobin (Bld) [Mass/Vol] 15.9 g/dL 13.0-16.5 [facility] Blood lymphocytes/100 leukoc ytesOrdered By: Roque Kang on 06-01-2023 Lymphocytes/100 WBC (Bld) 20.6 % 19-41 [facility] Blood monocytes/100 leukocyt esOrdered By: Roque Kang on 06-01-2023 Monocytes/100 WBC (Bld) 7.8 % 0-10 [facility] Blood platelet mean volumeOr dered By: Roque Kang on 06-01-2023 Platelet mean volume (Bld) [Entitic vol] 11.3 fL 6.2-12.0 [facility] Determination of erythrocyte mean corpuscular volume (MCV)Ordered By: Roque Kang on 06-01-2023 MCV (RBC) [Entitic vol] 91.2 fL 80-94 [facility] Hematocrit Auto (Bld) [Volum e fraction]Ordered By: Roque Kang on 06-01-2023 Hematocrit (Bld) [Volume fraction] 44.7 % 40-54 [facility] - Chemistry and C hemistry - challengeOrdered By: Roque Kang on 06-01-2023 ALP [Catalytic activity/Vol] 140 U/L 45-117 [facility] ALT [Catalytic activity/Vol] 140 U/L 16-61 [facility] CO2 [Moles/Vol] 25.0 mmol/L 21.0-32.0 [facility] Globulin (S) [Mass/Vol] 3.9 g/dL 2.2-4.2 [facility] Urea nitrogen/Creatinine [Mass ratio] 23.1 mg/mg 10-20 [facility] - Hematology and Cell countsOrdered By: Roque Kang on 06-01-2023 Erythrocyte distribution width (RBC) [Entitic vol] 42.1 fL 35.1-43.9 [facility] Erythrocyte distribution width (RBC) [Ratio] 12.7 % 11.6-14.6 [facility] Immature granulocytes/100 WBC (Bld) 0.300 % 0.0-0.9 [facility] Comment on above: IG% - Immature Granu locytes (promyelocytes, myelocytes and metamyelocytes) > 1% indicates that a LEFT SHIFT is Present. MCH (RBC) [Entitic mass] 32.4 pg 27.0-32.0 [facility] Nucleated RBC/100 WBC (Bld) [Ratio] 0 % [facility] [Mass/Vol]Or dered By: Roque Kang on 06-01-2023 MCHC (RBC) [Mass/Vol] 35.6 g/dL 32-36 [facility] No Panel InformationOrdered By: Roque Kang on 06-01-2023 Estimated Creatinine Clearance Calc 76.84 ml/min [facility] Estimated GFR (MDRD) Amer 91 mL/min >60 [facility] Comment on above: GFR Calc Estimated GFR (MDRD) Non-Af Amer 75 mL/min >60 [facility] Comment on above: Non- GFR Calc Platelets bldOrdered By: Piyush Kang on 06-01-2023 Platelets (Bld) [#/Vol] 166 10*3/uL 150-450 [facility] Serum or plasma albumin liudmila urement (mass/volume)Ordered By: Roque Kang on 06-01-2023 Albumin [Mass/Vol] 3.7 g/dL 3.2-5.0 [facility] Serum or plasma albumin/glob ulin mass ratioOrdered By: Roque Kang on 06-01-2023 Albumin/Globulin [Mass ratio] 0.9 {ratio} 0.9-2.4 [facility] Serum or plasma calcium liudmila urement (mass/volume)Ordered By: Roque Kang on 06-01-2023 Calcium [Mass/Vol] 9.2 mg/dL 8.5-10.1 [facility] Serum or plasma creatinine m easurement (mass/volume)Ordered By: Roque Kang on 06-01-2023 Creatinine [Mass/Vol] 1.04 mg/dL 0.70-1.30 [facility] Comment on above: The validity of the calculated GFR & GFRAA in patients over 70 years has not been determined. Clinical correlation is essential. Serum or plasma ferritin ash surement (mass/volume)Ordered By: Roque Kang on 06-01-2023 Ferritin [Mass/Vol] 276 ng/mL 26-[address] [facility] Serum or plasma urea nitroge n measurement (mass/volume)Ordered By: Roque Kang on 06-01-2023 Urea nitrogen [Mass/Vol] 24 mg/dL 7-18 [facility] Thin prep Papanicolaou smear with manual screeningOrdered By: Roque Kang on 06-01-2023 Thin prep Papanicolaou smear with manual screening 106 U/L 15-37 [facility] Thin prep Papanicolaou smear with manual screening 7 5-15 [facility] Basophil percentageOrdered B y: Ada Alexander on 03-22-2023 Cholesterol [Mass/Vol] 180 mg/dL <200 [facility] Comment on above: <200 mg/dL Desirable 200-240 mg/dL Borderline >240 mg/dL High Risk Triglyceride [Mass/Vol] 289 mg/dL <199 [facility] Comment on above: The drugs N-Acetylcy steine and Metamizole may falsely depress this assay.Serum Triglycerides Reference Interval Normal <150 mg/dL Borderline high 150 - 199 mg/dL High 200 - 499 mg/dL Very High > or = 500 mg/dL No Panel InformationOrdered By: Ada Alexander on 03-22-2023 Urine Microalbumin/Creatinin e Ratio 13.1 mg/g CRE <30 [facility] Serum or plasma cholesterol in HDL measurement (mass/volume)Ordered By: Ada Alexander on 03-22-2023 Cholesterol in HDL [Mass/Vol] 43 mg/dL >40 [facility] Comment on above: The drugs N-Acetylcy steine and Metamizole may falsely depress this assay. Reference Range HDL <40 mg/dL Low HDL Cholesterol HDL >or= 60 mg/dL High HDL Cholesterol Serum or plasma cholesterol in VLDL measurement (mass/volume)Ordered By: Ada Alexander on 03-22-2023 Cholesterol in VLDL [Mass/Vol] 58 mg/dL 5-40 [facility] Serum or plasma low density lipoprotein (LDL) cholesterol measurement (mass/volume)Ordered By: Ada Alexander on 03-22-2023 Cholesterol in LDL [Mass/Vol] 79 mg/dL 0-130 [facility] Thin prep Papanicolaou smear with manual screeningOrdered By: Ada Alexander on 03-22-2023 Thin prep Papanicolaou smear with manual screening 19.1 mg/L NO RANGE EST. [facility] Urine creatinine measurement (mass/volume)Ordered By: Ada Alexander on 03-22-2023 Creatinine (U) [Mass/Vol] 146.00 mg/dL NO RANGE EST. [facility] Whole blood hemoglobin A1c/t otal hemoglobin ratio (mass fraction)Ordered By: Ada Alexander on 03-22-2023 HbA1c (Bld) [Mass fraction] 7.5 % 3.8-5.6 [facility] Comment on above: Normal < 5.7 % Predi abetic 5.7 - 6.4 % Diabetic >or= 6.5 % Please note range changes. Absolute lymphocyte countOrd ered By: Latoya Wadsworth on 03-07-2023 Lymphocytes Auto (Unsp spec) [#/Vol] 1.44 10*3/uL 0.83-4.51 [facility] Basophil percentageOrdered B y: Latoya Wadsworth on 03-07-2023 Basophils/100 WBC (Bld) 0.4 % 0-1 [facility] Chloride [Moles/Vol] 102 mmol/L 98-107 [facility] Eosinophils/100 WBC (Bld) 3.1 % 0-5 [facility] Glucose [Mass/Vol] 188 mg/dL 74-106 [facility] Comment on above: Fasting Glucose resu lt greater than or equal to 126 mg/dL suggests DIABETES MELLITUS per A.D.A. criteria. Neutrophils (Bld) [#/Vol] 5.1 10*3/uL 2.0-7.7 [facility] Neutrophils/100 WBC (Bld) 68.1 % 47-70 [facility] Potassium [Moles/Vol] 3.7 mmol/L 3.5-5.1 [facility] Sodium [Moles/Vol] 137 mmol/L 136-145 [facility] WBC (Bld) [#/Vol] 7.5 10*3/uL 4.4-11.0 [facility] Blood erythrocytes count (nu mber/volume)Ordered By: Latoya Wadsworth on 03-07-2023 RBC (Bld) [#/Vol] 4.58 10*6/uL 4.6-6.[address] [facility] Blood hemoglobin measurement (mass/volume)Ordered By: Latoya Wadsworth on 03-07-2023 Hemoglobin (Bld) [Mass/Vol] 15.6 g/dL 13.0-16.5 [facility] Blood lymphocytes/100 leukoc ytesOrdered By: Latoya Wadsworth on 03-07-2023 Lymphocytes/100 WBC (Bld) 19.2 % 19-41 [facility] Blood monocytes/100 leukocyt esOrdered By: Latoya Wadsworth on 03-07-2023 Monocytes/100 WBC (Bld) 8.9 % 0-10 [facility] Blood platelet mean volumeOr dered By: Latoya Wadsworth on 03-07-2023 Platelet mean volume (Bld) [Entitic vol] 11.4 fL 6.2-12.0 [facility] Determination of erythrocyte mean corpuscular volume (MCV)Ordered By: Latoya Wadsworth on 03-07-2023 MCV (RBC) [Entitic vol] 93.9 fL 80-94 [facility] Hematocrit Auto (Bld) [Volum e fraction]Ordered By: Latoya Wadsworth on 03-07-2023 Hematocrit (Bld) [Volume fraction] 43.0 % 40-54 [facility] - Chemistry and C hemistry - challengeOrdered By: Latoya Wadsworth on 03-07-2023 CO2 [Moles/Vol] 26.0 mmol/L 21.0-32.0 [facility] Urea nitrogen/Creatinine [Mass ratio] 15.4 mg/mg 10-20 [facility] - Hematology and Cell countsOrdered By: Latoya Wadsworth on 03-07-2023 Erythrocyte distribution width (RBC) [Entitic vol] 44.7 fL 35.1-43.9 [facility] Erythrocyte distribution width (RBC) [Ratio] 13.1 % 11.6-14.6 [facility] Immature granulocytes/100 WBC (Bld) 0.300 % 0.0-0.9 [facility] Comment on above: IG% - Immature Granu locytes (promyelocytes, myelocytes and metamyelocytes) > 1% indicates that a LEFT SHIFT is Present. MCH (RBC) [Entitic mass] 34.1 pg 27.0-32.0 [facility] Nucleated RBC/100 WBC (Bld) [Ratio] 0 % 0-5 [facility] MCHC Auto (RBC) [Mass/Vol]Or dered By: Latoya Wadsworth on 03-07-2023 MCHC (RBC) [Mass/Vol] 36.3 g/dL 32-36 [facility] No Panel InformationOrdered By: Latoya Wadsworth on 03-07-2023 Estimated GFR (MDRD) Amer 67 mL/min >60 [facility] Comment on above: GFR Calc Estimated GFR (MDRD) Non-Af Amer 55 mL/min >60 [facility] Comment on above: Non- GFR Calc Platelets bldOrdered By: Shakeel jannadinh Wadsworth on 03-07-2023 Platelets (Bld) [#/Vol] 167 10*3/uL 150-450 [facility] Serum or plasma calcium liudmila urement (mass/volume)Ordered By: Latoya Wadsworth on 03-07-2023 Calcium [Mass/Vol] 9.5 mg/dL 8.5-10.1 [facility] Serum or plasma creatinine m easurement (mass/volume)Ordered By: Latoya Wadsworth on 03-07-2023 Creatinine [Mass/Vol] 1.36 mg/dL 0.70-1.30 [facility] Comment on above: The validity of the calculated GFR & GFRAA in patients over 70 years has not been determined. Clinical correlation is essential. Serum or plasma urea nitroge n measurement (mass/volume)Ordered By: Latoya Wadsworth on 03-07-2023 Urea nitrogen [Mass/Vol] 21 mg/dL 7-18 [facility] Thin prep Papanicolaou smear with manual screeningOrdered By: Latoya Wadsworth on 03-07-2023 Thin prep Papanicolaou smear with manual screening 9 5-15 [facility] Absolute lymphocyte countOrd ered By: Grover Lemons on 01-18-2023 Lymphocytes Auto (Unsp spec) [#/Vol] 1.65 10*3/uL 0.83-4.51 [facility] Basophil percentageOrdered B y: Grover Lemons on 01-18-2023 Basophils/100 WBC (Bld) 0.5 % 0-1 [facility] Chloride [Moles/Vol] 105 mmol/L 98-107 [facility] Eosinophils/100 WBC (Bld) 1.1 % 0-5 [facility] Glucose [Mass/Vol] 152 mg/dL 74-106 [facility] Comment on above: Fasting Glucose resu lt greater than or equal to 126 mg/dL suggests DIABETES MELLITUS per A.D.A. criteria. Neutrophils (Bld) [#/Vol] 6.1 10*3/uL 2.0-7.7 [facility] Neutrophils/100 WBC (Bld) 70.8 % 47-70 [facility] Potassium [Moles/Vol] 3.6 mmol/L 3.5-5.1 [facility] Sodium [Moles/Vol] 136 mmol/L 136-145 [facility] WBC (Bld) [#/Vol] 8.5 10*3/uL 4.4-11.0 [facility] Blood erythrocytes count (nu mber/volume)Ordered By: Grover Lemons on 01-18-2023 RBC (Bld) [#/Vol] 5.04 10*6/uL 4.6-6.[address] [facility] Blood hemoglobin measurement (mass/volume)Ordered By: Grover Lemons on 01-18-2023 Hemoglobin (Bld) [Mass/Vol] 17.2 g/dL 13.0-16.5 [facility] Blood lymphocytes/100 leukoc ytesOrdered By: Grover Lemons on 01-18-2023 Lymphocytes/100 WBC (Bld) 19.3 % 19-41 [facility] Blood monocytes/100 leukocyt esOrdered By: Grover Lemons on 01-18-2023 Monocytes/100 WBC (Bld) 7.8 % 0-10 [facility] Blood platelet mean volumeOr dered By: Grover Lemons on 01-18-2023 Platelet mean volume (Bld) [Entitic vol] 11.3 fL 6.2-12.0 [facility] Determination of erythrocyte mean corpuscular volume (MCV)Ordered By: Grover Lemons on 01-18-2023 MCV (RBC) [Entitic vol] 93.1 fL 80-94 [facility] Hematocrit Auto (Bld) [Volum e fraction]Ordered By: Grover Lemons on 01-18-2023 Hematocrit (Bld) [Volume fraction] 46.9 % 40-54 [facility] - Chemistry and C hemistry - challengeOrdered By: Grover Lemons on 01-18-2023 CO2 [Moles/Vol] 24.0 mmol/L 21.0-32.0 [facility] Urea nitrogen/Creatinine [Mass ratio] 21.0 mg/mg 10-20 [facility] - Hematology and Cell countsOrdered By: Grover Lemons on 01-18-2023 Erythrocyte distribution width (RBC) [Entitic vol] 42.9 fL 35.1-43.9 [facility] Erythrocyte distribution width (RBC) [Ratio] 12.6 % 11.6-14.6 [facility] Immature granulocytes/100 WBC (Bld) 0.500 % 0.0-0.9 [facility] Comment on above: IG% - Immature Granu locytes (promyelocytes, myelocytes and metamyelocytes) > 1% indicates that a LEFT SHIFT is Present. MCH (RBC) [Entitic mass] 34.1 pg 27.0-32.0 [facility] Nucleated RBC/100 WBC (Bld) [Ratio] 0 % 0-5 [facility] MCHC Auto (RBC) [Mass/Vol]Or dered By: Grover Lemons on 01-18-2023 MCHC (RBC) [Mass/Vol] 36.7 g/dL 32-36 [facility] No Panel InformationOrdered By: Grover Lemons on 01-18-2023 Estimated Creatinine Clearance Calc 76.11 ml/min [facility] Estimated GFR (MDRD) Amer 90 mL/min >60 [facility] Comment on above: GFR Calc Estimated GFR (MDRD) Non-Af Amer 74 mL/min >60 [facility] Comment on above: Non- GFR Calc Troponin I High Sensitivity 11 pg/mL 3.0-78.0 [facility] Comment on above: Please Note: New Aicha t Units and Gender Specific Reference Ranges. For more information see Policy Stat Procedure [place] High Sensitivity Troponin (TNIH) and attachments. Platelets bldOrdered By: Nunu Lemons on 01-18-2023 Platelets (Bld) [#/Vol] 188 10*3/uL 150-450 [facility] Serum or plasma calcium liudmila urement (mass/volume)Ordered By: Grover Lemons on 01-18-2023 Calcium [Mass/Vol] 9.8 mg/dL 8.5-10.1 [facility] Serum or plasma creatinine m easurement (mass/volume)Ordered By: Grover Lemons on 01-18-2023 Creatinine [Mass/Vol] 1.05 mg/dL 0.70-1.30 [facility] Comment on above: The validity of the calculated GFR & GFRAA in patients over 70 years has not been determined. Clinical correlation is essential. Serum or plasma urea nitroge n measurement (mass/volume)Ordered By: Grover Lemons on 01-18-2023 Urea nitrogen [Mass/Vol] 22 mg/dL 7-18 [facility] Thin prep Papanicolaou smear with manual screeningOrdered By: Grover Lemons on 01-18-2023 Thin prep Papanicolaou smear with manual screening 7 - [facility] Absolute lymphocyte countOrd ered By: Rouqe Kang on 12-08-2022 Lymphocytes Auto (Unsp spec) [#/Vol] 1.64 10*3/uL 0.83-4.51 [facility] Basophil percentageOrdered B y: Roque Kang on 12-08-2022 Basophils/100 WBC (Bld) 0.5 % 0-1 [facility] Bilirubin [Mass/Vol] 0.90 mg/dL 0.20-1.00 [facility] Comment on above: For patients on eltr ombopag therapy, use of Dimension [place] TBIL is not recommended. Chloride [Moles/Vol] 104 mmol/L 98-107 [facility] Eosinophils/100 WBC (Bld) 1.7 % 0-5 [facility] Glucose [Mass/Vol] 129 mg/dL 74-106 [facility] Comment on above: Fasting Glucose resu lt greater than or equal to 126 mg/dL suggests DIABETES MELLITUS per A.D.A. criteria. LDH [Catalytic activity/Vol] 189 U/L 87-241 [facility] Neutrophils (Bld) [#/Vol] 4.2 10*3/uL 2.0-7.7 [facility] [facility] Neutrophils/100 WBC (Bld) 64.3 % 47-70 [facility] Potassium [Moles/Vol] 3.9 mmol/L 3.5-5.1 [facility] Protein [Mass/Vol] 7.9 g/dL 6.4-8.2 [facility] Sodium [Moles/Vol] 137 mmol/L 136-145 [facility] WBC (Bld) [#/Vol] 6.5 10*3/uL 4.4-11.0 [facility] Blood erythrocytes count (nu mber/volume)Ordered By: Roque Kang on 12-08-2022 RBC (Bld) [#/Vol] 4.91 10*6/uL 4.6-6.[address] [facility] Blood hemoglobin measurement (mass/volume)Ordered By: Roque Kang on 12-08-2022 Hemoglobin (Bld) [Mass/Vol] 16.6 g/dL 13.0-16.5 [facility] Blood lymphocytes/100 leukoc ytesOrdered By: Roque Kang on 12-08-2022 Lymphocytes/100 WBC (Bld) 25.2 % 19-41 [facility] Blood monocytes/100 leukocyt esOrdered By: Roque Kang on 12-08-2022 Monocytes/100 WBC (Bld) 7.8 % 0-10 [facility] Blood platelet mean volumeOr dered By: Roque Kang on 12-08-2022 Platelet mean volume (Bld) [Entitic vol] 10.9 fL 6.2-12.0 [facility] Determination of erythrocyte mean corpuscular volume (MCV)Ordered By: Roque Kang on 12-08-2022 MCV (RBC) [Entitic vol] 93.5 fL 80-94 [facility] Hematocrit Auto (Bld) [Volum e fraction]Ordered By: Roque Kang on 12-08-2022 Hematocrit (Bld) [Volume fraction] 45.9 % 40-54 [facility] Laboratory - Chemistry and C hemistry - challengeOrdered By: Roque Kang on 12-08-2022 ALP [Catalytic activity/Vol] 107 U/L 45-117 [facility] ALT [Catalytic activity/Vol] 69 U/L 16-61 [facility] CO2 [Moles/Vol] 25.0 mmol/L 21.0-32.0 [facility] Globulin (S) [Mass/Vol] 4.0 g/dL 2.2-4.2 [facility] Urea nitrogen/Creatinine [Mass ratio] 29.5 mg/mg 10-20 [facility] Laboratory - Hematology and Cell countsOrdered By: Roque Kang on 12-08-2022 Erythrocyte distribution width (RBC) [Entitic vol] 44.2 fL 35.1-43.9 [facility] Erythrocyte distribution width (RBC) [Ratio] 12.9 % 11.6-14.6 [facility] Immature granulocytes/100 WBC (Bld) 0.500 % 0.0-0.9 [facility] Comment on above: IG% - Immature Granu locytes (promyelocytes, myelocytes and metamyelocytes) > 1% indicates that a LEFT SHIFT is Present. MCH (RBC) [Entitic mass] 33.8 pg 27.0-32.0 [facility] Nucleated RBC/100 WBC (Bld) [Ratio] 0 % 0-5 [facility] MCHC Auto (RBC) [Mass/Vol]Or dered By: Roque Kang on 12-08-2022 MCHC (RBC) [Mass/Vol] 36.2 g/dL 32-36 [facility] No Panel InformationOrdered By: Roque Kang on 12-08-2022 Estimated Creatinine Clearance Calc 86.87 ml/min [facility] Estimated GFR (MDRD) Amer 105 mL/min >60 [facility] Comment on above: GFR Calc Estimated GFR (MDRD) Non-Af Amer 87 mL/min >60 [facility] Comment on above: Non- GFR Calc Platelets bldOrdered By: Piyush Kang on 12-08-2022 Platelets (Bld) [#/Vol] 175 10*3/uL 150-450 [facility] Serum or plasma albumin liudmila urement (mass/volume)Ordered By: Roque Kang on 12-08-2022 Albumin [Mass/Vol] 3.9 g/dL 3.2-5.0 [facility] Serum or plasma albumin/glob ulin mass ratioOrdered By: Roque Kang on 12-08-2022 Albumin/Globulin [Mass ratio] 1.0 {ratio} 0.9-2.4 [facility] Serum or plasma calcium liudmila urement (mass/volume)Ordered By: Roque Kang on 12-08-2022 Calcium [Mass/Vol] 10.0 mg/dL 8.5-10.1 [facility] Serum or plasma creatinine m easurement (mass/volume)Ordered By: Roque Guadalupe on 12-08-2022 Creatinine [Mass/Vol] 0.92 mg/dL 0.70-1.30 [facility] Comment on above: The validity of the calculated GFR & GFRAA in patients over 70 years has not been determined. Clinical correlation is essential. Serum or plasma ferritin ash surement (mass/volume)Ordered By: Roque Guadalupe on 12-08-2022 Ferritin [Mass/Vol] 98 ng/mL 26-[address] [facility] Serum or plasma urea nitroge n measurement (mass/volume)Ordered By: [facility] on 12-08-2022 Urea nitrogen [Mass/Vol] 27 mg/dL 7-18 [facility] Thin prep Papanicolaou smear with manual screeningOrdered By: [facility] on 12-08-2022 Thin prep Papanicolaou smear with manual screening 48 U/L 15-37 [facility] Thin prep Papanicolaou smear with manual screening 8 5-15 [facility] Laboratory - Microbiology an d Antimicrobial susceptibilityon 10-28-2022 S. pyogenes Ag IA Ql (Unsp spec) Negative [facility] Provider Note - ED v3on 12-25 Provider Note - ED v3 Provider Note: Chart Review: HISTORY OF PRESENTING ILLNESS EDWIGE is a 71 year old Male and was seen by me at 04-Jan-2022 08:47. Triage Information: Most recent Vital Sign Value Date PAST MEDICAL HISTORY CURRENT OR FORMER SUBSTANCE USE: Tobacco/Nicotine Use: never smoker Alcohol Use: occasionally ALLERGIES/INTOLERANCES: Allergy Allergen: penicillin Type: Drug Reaction: Hives/Urticaria HEALTH HISTORY: Medical History Name:Atrial flutter Code:I48.92 OUTPATIENT MEDICATIONS: Home Medications Review Status for Reconciliation: Complete Med Status: Patient Currently Takes Medications Drug Name: sertraline 25 mg oral tablet Instructions: 1 tab(s) orally once a day Drug Name: meloxicam 5 mg oral capsule Instructions: 1 cap(s) orally once a day Drug Name: losartan 25 mg oral tablet Instructions: 1 tab(s) orally once a day Drug Name: Vitamin D3 50,000 intl units (1250 mcg) oral capsule Instructions: 1 cap(s) orally once a week Drug Name: Multi Vitamin+ Instructions: null Drug Name: hydroCHLOROthiazide 25 mg oral tablet Instructions: 1 tab(s) orally once a day Drug Name: butenafine 1% topical cream Instructions: Apply topically to affected area once a day SIGNIFICANT EVENTS: Past Medical History Description:Hypertension (HTN) CRITICAL CARE VITAL SIGNS: T PRBP SpO2O2(LPM) %FiO2 Method 04-Jan-2022 08:48:[id number] 96 MDM MDM/ED COURSE: CC: I have a Rash on my feet HPI: Historian: Patient The patient presents today with symptoms starting {30 days ago). Symptoms include see ROS Negative for see ROS.. Patient has tried using cortisone cream that has not helped. REVIEW OF SYSTEMS (-)=Denies (+)=Complains of General: (-)Fatigue, (-)Fever, and (-)Chills. Skin: (+) Itching, , (+) peeling skin, (-) drainage, (+) redness, (+) crusting, (-) bruising, and (-) bleeding. Vision:(-) Eye pain, Nose/Sinuses:(-) Nasal Stuffiness, (-)Congestion, (-)Discharge, Ears: (-) Pain, Pulmonary: (-) Cough, (-) Dyspnea, (-) Wheezing. Cardiovascular: (-) Chest pain, Gastrointestinal: (-) Nausea, (-) Vomiting, (-) Diarrhea, (-) Abdominal Pain. Psychological: (-) Anxiety, (-) Depression, (-) Thoughts of self-harm PHYSICAL EXAM Patient in seated position. Appearance well groomed, alert and orientated, no acute distress, speech clear, and evenly paced, good historian, cooperative. Head: Normocephalic. Ear: External pinna skin intact with no mases, lesions, tenderness, or discharge. Otoscopic: Landmarks external canals clear with no redness swelling, lesions, discharge. TM bilaterally pearly sharpe with light reflex and landmarks intact, no perforation. Clear effusion left ear Nose: Nose symmetric, no deformity, or lesions, nares patent, mucosa pink, no discharge, Mouth: Throat mucosa pink, no lesions, or exudate. Uvula midline rises on phonation. Tonsils 1+, + gag reflex. Lips moist and pink. Teeth intact and well maintained no missing or chipped teeth. No foul-smelling odor from breath. Soft and hard palpate intact. Tongue surface smooth, shiny with veins. Skin: Inspection: Color: medium brown, Bilateral feet difuse scale on the plantar surface and side of the foot, erythema skin between the toes Cardiac: Regular S1 S2 no murmur, gallop/rub noted Lungs: Inspection +symmetric expansion, Patient sitting , respirations full, easy, and unlabored, skin color appropriate for ethnicity, pink, no cyanosis, or lesions noted. Auscultation Clear to auscultation bilaterally all vesicular paulson. Tracheal/bronchial- loud high pitch. Bronchovesicular moderate pitch. Plan: RX Butenafine cream Patient Education and Follow up: Patient educated on plan above. Pt verbalized understanding; Reviewed red flags, counseled on potential adverse reactions of treatments, expectations for improvement in sxs, and advised to follow-up with primary care provider in 3-5 days if symptoms persist, or to ER sooner if worsening or if any additional concerns/red flags develop. Patient agreed with plan of care; questions were encouraged and answered. DISPOSITION Diagnosis/Annotation: ED Dx Name:Tinea pedis Code:B35.3 Disposition: discharged Type: home CONSULT CRITICAL CARE TIME Is this a critically ill patient: no Electronic Signatures: Devi Barry ([facility]) (Signed 04-Jan-2022 09:42) Authored: HPI, PMH, PE, Results/Vital Signs, MDM/ED Course, Clinical Impression, Attestation, Chart Review, Scores Last Updated: 04-Jan-2022 09:42 by Devi Barry ([facility]) Normal [facility] Absolute lymphocyte counton 12-09-2021 Lymphocytes Auto (Unsp spec) [#/Vol] 1.35 10*3/uL 0.83-4.51 [facility] Work Phone: Basophil percentageon 2021 Basophils/100 WBC (Bld) 0.2 % 0-1 [facility] Work Phone: Bilirubin [Mass/Vol] 0.80 mg/dL 0.20-1.00 [facility] Work Phone: Comment on above: For patients on eltr ombopag therapy, use of Dimension [place] TBIL is not recommended. Chloride [Moles/Vol] 103 mmol/L 98-107 [facility] Work Phone: Eosinophils/100 WBC (Bld) 1.2 % 0-5 [facility] Work Phone: Glucose [Mass/Vol] 155 mg/dL 74-106 [facility] Work Phone: Comment on above: Fasting Glucose resu lt greater than or equal to 126 mg/dL suggests DIABETES MELLITUS per A.D.A. criteria. Neutrophils (Bld) [#/Vol] 4.5 10*3/uL 2.0-7.7 [facility] Work Phone: Neutrophils/100 WBC (Bld) 70.2 % 47-70 [facility] Work Phone: Potassium [Moles/Vol] 3.8 mmol/L 3.5-5.1 [facility] Work Phone: Protein [Mass/Vol] 7.7 g/dL 6.4-8.2 [facility] Work Phone: Sodium [Moles/Vol] 137 mmol/L 136-145 [facility] Work Phone: WBC (Bld) [#/Vol] 6.5 10*3/uL 4.4-11.0 [facility] Work Phone: Blood erythrocytes count (nu mber/volume)on 12-09-2021 RBC (Bld) [#/Vol] 4.74 10*6/uL 4.6-6.[address] [facility] Work Phone: Blood hemoglobin measurement (mass/volume)on 12-09-2021 Hemoglobin (Bld) [Mass/Vol] 15.9 g/dL 13.0-16.5 [facility] Work Phone: Blood lymphocytes/100 leukoc yteson 12-09-2021 Lymphocytes/100 WBC (Bld) 20.9 % 19-41 [facility] Work Phone: Blood monocytes/100 leukocyt eson 12-09-2021 Monocytes/100 WBC (Bld) 7.0 % 0-10 [facility] Work Phone: Blood platelet mean volumeon 12-09-2021 Platelet mean volume (Bld) [Entitic vol] 11.0 fL 6.2-12.0 [facility] Work Phone: Determination of erythrocyte mean corpuscular volume (MCV)on 12-09-2021 MCV (RBC) [Entitic vol] 94.5 fL 80-94 [facility] Work Phone: Hematocrit Auto (Bld) [Volum e fraction]on 12-09-2021 Hematocrit (Bld) [Volume fraction] 44.8 % 40-54 [facility] Work Phone: [phone] Laboratory - Chemistry and C hemistry - challengeon 12-09-2021 ALP [Catalytic activity/Vol] 96 U/L 45-117 [facility] Work Phone: ALT [Catalytic activity/Vol] 81 U/L 16-61 [facility] Work Phone: CO2 [Moles/Vol] 25.0 mmol/L 21.0-32.0 [facility] Work Phone: [phone] Globulin (S) [Mass/Vol] 3.9 g/dL 2.2-4.2 [facility] Work Phone: Urea nitrogen/Creatinine [Mass ratio] 20.3 mg/mg 10-20 [facility] Work Phone: Laboratory - Hematology and Cell countson 12-09-2021 Erythrocyte distribution width (RBC) [Entitic vol] 44.2 fL 35.1-43.9 [facility] Work Phone: Erythrocyte distribution width (RBC) [Ratio] 12.8 % 11.6-14.6 [facility] Work Phone: Immature granulocytes/100 WBC (Bld) 0.500 % 0.0-0.9 [facility] Work Phone: [phone] Comment on above: IG% - Immature Granu locytes (promyelocytes, myelocytes and metamyelocytes) > 1% indicates that a LEFT SHIFT is Present. MCH (RBC) [Entitic mass] 33.5 pg 27.0-32.0 [facility] Work Phone: Nucleated RBC/100 WBC (Bld) [Ratio] 0 % 0-5 [facility] Work Phone: MCHC Auto (RBC) [Mass/Vol]on 12-09-2021 MCHC (RBC) [Mass/Vol] 35.5 g/dL 32-36 [facility] Work Phone: No Panel Informationon 12-09 Estimated Creatinine Clearance Calc 63.33 ml/min [facility] Work Phone: Estimated GFR (MDRD) Amer 72 mL/min >60 [facility] Work Phone: Comment on above: GFR Calc Estimated GFR (MDRD) Non-Af Amer 59 mL/min >60 [facility] Work Phone: Comment on above: Non- GFR Calc Platelets bldon 12-09-2021 Platelets (Bld) [#/Vol] 166 10*3/uL 150-450 [facility] Work Phone: Serum or plasma albumin liudmila urement (mass/volume)on 12-09-2021 Albumin [Mass/Vol] 3.8 g/dL 3.2-5.0 [facility] Work Phone: Serum or plasma albumin/glob ulin mass ratioon 12-09-2021 Albumin/Globulin [Mass ratio] 1.0 {ratio} 0.9-2.4 [facility] Work Phone: Serum or plasma [id number] protein tumor marker measurement (units/volume)Ordered By: Roque Kang on 12-09-2021 AFP.tumor marker Qn 1.7 ng/mL 0.0-8.[address] [facility] Comment on above: [employer] El ectrochemiluminescence Immunoassay(ECLIA)Values obtained with different assay methods or kits cannotbe used interchangeably. Results cannot be interpreted asabsolute evidence of the presence or absence of malignantdisease.This test is not interpretable in females.Performed at: [facility] [id number] Director: Hao Marks PhD, Phone: [phone] Serum or plasma calcium liudmila urement (mass/volume)on 12-09-2021 Calcium [Mass/Vol] 9.4 mg/dL 8.5-10.1 [facility] Work Phone: Serum or plasma creatinine m easurement (mass/volume)on 12-09-2021 Creatinine [Mass/Vol] 1.28 mg/dL 0.70-1.30 [facility] Work Phone: Comment on above: The validity of the calculated GFR & GFRAA in patients over 70 years has not been determined. Clinical correlation is essential. Serum or plasma ferritin ash surement (mass/volume)on 12-09-2021 Ferritin [Mass/Vol] 107 ng/mL 26-[address] [facility] Work Phone: Serum or plasma urea nitroge n measurement (mass/volume)on 12-09-2021 Urea nitrogen [Mass/Vol] 26 mg/dL 7-18 [facility] Work Phone: Thin prep Papanicolaou smear with manual screeningon 12-09-2021 Thin prep Papanicolaou smear with manual screening 53 U/L 15-37 [facility] Work Phone: Thin prep Papanicolaou smear with manual screening 9 5-15 [facility] Work Phone: Thin prep Papanicolaou smear with manual screening 191 U/L 87-241 [facility] Work Phone: Covid 19 Resultson 2 SARS-CoV-2 (COVID-19) RNA JAYNE+probe Ql (Unsp spec) NEGATIVE COVID-19 Test Coronaviruses are common world-wide and are the cause of many common colds. SARS-COV2 is a new coronavirus that began circulating worldwide in 2019 so we are calling it COVID-19. It has been estimated that four out of five patients with COVID-19 will recover at home without the need for medical attention. Symptoms of COVID-19 may include cough, fever, shortness of breath, loss of taste or smell and other flu-like symptoms including chills, sore muscles, sore throat, and headache. Severe illness is more common in older people and people with other health problems such as high blood pressure, obesity, and immune system problems. If the test is positive, you have COVID-19. You will be contacted by the ordering physicians office and instructed to remain on home isolation, in accordance with CDC guidelines. You may also be contacted by the [facility] to see if any of your close contacts may have been exposed to the virus and need to quarantine. If the test is negative, you likely do not have COVID-19 at this time, but you still may have a different illness that can spread to other people (like Influenza, or the Flu) and could still be at risk for getting COVID-19. We recommend that you stay away from other people to limit the spread of illness until your symptoms are improving and you are fever-free for 24 hours without the use of fever lowering medications such as acetaminophen or ibuprofen. No test is 100% accurate so if you are still concerned you may have COVID-19, talk to your doctor about the need to continue to stay away from others. Medicines Unless your provider told you not to use the following: Acetaminophen (Tylenol and others) is generally safe. Anti-inflammatory medications, such as Ibuprofen (Advil or Motrin) or Naproxen (Aleve) can also be used. Opzw-hia-mciugxn cough and cold medicines can be used according to the instructions on the package. Some pnar-xmp-bvbpurx medicines also contain acetaminophen. Make sure you are not taking more than your recommended dose. For those not hospitalized, there is no specific treatment available for this illness. Antibiotics do not treat Coronaviruses. Follow-Up Follow up with your doctor by scheduling a virtual visit or consider follow-up at one of our urgent care fever clinics. If you are having difficulty breathing, or are very weak and having difficulty standing, this is a medical emergency. Call 911 or have someone take you to the nearest emergency room immediately. If possible, wear a facemask. Additional guidance from the CDC for patients who tested POSITIVE for COVID-19 How to isolate: Isolate yourself in a specific room at home and limit your contact with others. Use a separate bathroom from other members of the household, when possible. Leave home only to get essential medical care. Do not go to work, school or public areas. Avoid using public transportation, ride-sharing, or taxis. Restrict contact with pets and other animals. If you must care for your pet or be around animals while you are sick, wash your hands before and after your interaction and wear a facemask. Make sure that shared spaces in the home have good airflow, such as by an air conditioner or an opened window, weather permitting. Personal Hygiene Procedures: Wear a face mask when in the same room as other people or pets. If a face mask interferes with your breathing, others should wear a mask when sharing space with you. Frequent hand-washing: wash your hands with soap and water for at least 20 seconds. If soap and water are not available, use alcohol-based hand hospital sales representative. Avoid touching your eyes, nose, and mouth with unwashed hands. Household Hygiene Procedures: Avoid sharing personal household items such as dishes, glassware, cups, eating utensils, towels or bedding with other people or pets in your home. After use, these items should be washed with soap and hot water. Disinfect all high-touch surfaces every day with antibacterial cleaning solutions such as Lysol wipes, bleach, cleansers, etc. High-touch surfaces include tabletops, doorknobs, bathroom fixtures, toilets, phones, keyboards, tablets and bedside tables. Immediately clean any surfaces that may have blood, poop or body fluids on them, using antibacterial cleaning solutions such as Lysol wipes, bleach, cleansers, etc. If clothing or bedding come into contact with blood, poop or body fluids, they should be washed immediately. Follow the directions on the laundry detergent and clothing labels but hot water is recommended when possible. Stopping home isolation precautions: If possible, consult your doctor before stopping home isolation precautions. According to the CDC, you can discontinue home isolation precautions when you have met both of these criteria: Your fever and respiratory symptoms have been gone for 24 janice (more content not included)... Normal [facility] INFLUENZA A/B, COVID 2019 PC R,SYMPTOMATICon 09-17-2021 INFLUENZA A, PCR Not detected Normal Not Detected [facility] Comment on above: Result Comment: Resp iratory virus testing is performed routinely by PCR for Influenza A/B and RSV. If Influenza and RSV PCR are negative, testing for parainfluenza 1,2,3 viruses and adenovirus is routinely performed for oncology inpatients and intensive care unit patients at [facility] and is available on request on other patients by calling Laboratory Client Services at [phone]. Not Detected results do not preclude Influenza A/B or RSV infections since the adequacy of sample collection or low viral burden may impact the clinical sensitivity of this test method. Performed By: #### C OINP #### [facility] [address] [place] [address] INFLUENZA B, PCR Not detected Normal Not Detected [facility] Comment on above: Result Comment: Resp iratory virus testing is performed routinely by PCR for Influenza A/B and RSV. If Influenza and RSV PCR are negative, testing for parainfluenza 1,2,3 viruses and adenovirus is routinely performed for oncology inpatients and intensive care unit patients at [facility] and is available on request on other patients by calling Laboratory Client Services at [phone] Not Detected results do not preclude Influenza A/B or RSV infections since the adequacy of sample collection or low viral burden may impact the clinical sensitivity of this test method. . The TaqManTM SARS-CoV-2, Flu A, Flu B Multiplex Assay is a multiplex, real-time RT-PCR assay for the detection of RNA from the SARS-CoV-2, Influenza A, and Influenza B viruses. A negative result does not preclude the possibility of SARS-CoV-2, Influenza A, or Influenza B infections, and should not be used as the sole basis for patient management decision as a negative result may be caused by very low levels of infection, collection errors, or testing errors. . This test was developed and its performance characteristics were determined by the Microbiology Laboratory, Department of Pathology, [facility], [place], [place]. It has not been cleared or approved by the US Food and Drug Administration; however, FDA clearance or approval is not currently required for clinical use. This test should not be regarded as investigational or for research purposes. Performed By: #### C OINP #### [facility] [address] [place] [address] SARS-CoV-2 (COVID-19) RNA JAYNE+probe Ql (Unsp spec) Not detected Normal Not Detected [facility] Comment on above: Result Comment: . This assay is designed to detect the N, ORF1ab and/or S genes of SARS-CoV-2 via nucleic acid amplification. A Negative (NOT DETECTED) result does not preclude 2019-nCoV infection since the adequacy of sample collection and/or low viral burden may result in presence of viral nucleic acids below the clinical sensitivity of this test method. Negative (NOT DETECTED) result should not be used as the sole basis for treatment or other patient management decisions. Rather negative results should be combined with clinical observations, patient history, and epidemiological information to make patient management decisions. Fact sheet for providers: https://www.fda.gov/media/646193/download Fact sheet for patients: https://www.fda.gov/media/882540/download This test has received FDA Emergency Use Authorization (EUA) and has been verified by [facility] ([facility]). This test is only authorized for the duration of time that circumstances exist to justify the authorization of the emergency use of in vitro diagnostic tests for the detection of SARS-CoV-2 virus and/or diagnosis of COVID-19 infection under section 564(b)(1) of the Act, 21 U.S.C. 360bbb-3(b)(1), unless the authorization is terminated or revoked sooner. [facility] is certified under CLIA-88 as qualified to perform high complexity testing. Testing is performed in the [facility] laboratories located at [address] [place] [address]. Performed By: #### C OINP #### [facility] [id number] [place] [address]. [place] [address] INFLUENZA A/B, COVID 2019 PC R,SYMPTOMATICon 09-16-2021 Lab Specimen Source Nasal, Nasopharyngeal Normal [facility] Comment on above: Performed By: #### C OINP #### [address] [place] [address] DATE OF SYMPTOM ONSET [YYYYMMDD]? [id number] Normal [facility] Comment on above: Performed By: #### C OINP #### [facility] [address] [place] [address] Provider Note - ED v3on 08-26 Provider Note - ED v3 Provider Note: Chart Review HISTORY OF PRESENTING ILLNESS EDWIGE is a 71 year old Male and was seen by me at 16-Sep-2021 11:05. The historian is the patient. Triage Information: Most recent Vital Sign Value Date PAST MEDICAL HISTORY ALLERGIES/INTOLERANCES: Allergy Allergen: penicillin Type: Drug Reaction: Hives/Urticaria HEALTH HISTORY: Medical History Name:Atrial flutter Code:I48.92 Pt also reports history of HTN, Meniere's Disease, arthritis, anxiety/depression, sleep apnea (wears BiPap nightly), and a shunt in his R ear. No other known health issues. Follows regularly with PCP Dr. Alexander. Family history: no pertinent history. Social history: Former smoker - quit ~40 years ago. 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 . Has grandchildren in [place]. OUTPATIENT MEDICATIONS: Home Medications Review Status for Reconciliation: Complete Med Status: Complete Medication History Drug Name: sertraline 25 mg oral tablet Instructions: 1 tab(s) orally once a day Drug Name: meloxicam 5 mg oral capsule Instructions: 1 cap(s) orally once a day Drug Name: losartan 25 mg oral tablet Instructions: 1 tab(s) orally once a day Drug Name: Vitamin D3 50,000 intl units (1250 mcg) oral capsule Instructions: 1 cap(s) orally once a week Drug Name: Multi Vitamin+ Instructions: null Drug Name: hydroCHLOROthiazide 25 mg oral tablet Instructions: 1 tab(s) orally once a day SIGNIFICANT EVENTS: Past Medical History Description:Hypertension (HTN) Also reports history of shunt in R ear r/t Meniere's Disease. No other known significant events or known past surgical history. Has received Moderna COVID-19 Vaccine x 2 + one booster vaccine. CRITICAL CARE VITAL SIGNS: T PRBP SpO2O2(LPM) %FiO2 Method 16-Sep-2021 10:41:[id number] 95 Recheck BP 147/75. MDM MDM/ED COURSE: This note was generated with voice recognition software and may contain errors including spelling, grammar, syntax, and misrecognization of what was dictated CHIEF COMPLAINT cough, stuffy nose, fatigue HISTORY OF PRESENT ILLNESS Patient presents today for evaluation of cold symptoms. Reports he woke up Tuesday AM and had a sore throat - attributed it to his BiPap not working correctly overnight - humidification chamber was still full in the morning. Reports his sore throat has resolved, but since then, he has developed a dry cough, PND, and mild fatigue. Also has nasal congestion (clear drainage) - worst in the AM. He denies any fever/chills, body aches, sinus tenderness, ear pain, headaches, abdominal pain, chest pain, wheezing/shortness of breath, rashes, urinary symptoms, nausea/vomiting, and diarrhea. Denies any lightheadedness or dizziness; no changes in mental status. No new swelling in legs. Appetite is normal and is able to drink fluids without difficulty; denies any loss of sense of taste/smell. Reports feels like symptoms are a little worse since onset. Has been taking cough drops with some relief; no other rjnu-wsh-jyqvqvj medications or home remedies for symptom management. No known ill contacts. Has received the COVID-19 vaccine x2 plus one booster. Did not receive flu vaccine this year. Is a former smoker. REVIEW OF SYSTEMS 10 systems reviewed negative with exception of history of present illness listed above PHYSICAL EXAMINATION General: Mildly ill-appearing, well nourished older male; alert and oriented; in no acute distress. Sitting comfortably on exam table. Non-dyspneic. Eyes: Pupils equal, round and reactive to light. No conjunctival erythema; no scleral icterus. HENT: No frontal or maxillary sinus tenderness; + very mild audible nasal congestion. Airway patent. Wearing hearing aids bilat - upon removal, TMs with cloudy fluid but no erythema and not retracted or bulging, and ear canals clear bilaterally. Nasal mucosa mildly injected and edematous. Oral mucosa moist. Posterior pharynx unremarkable and without vesicles or oropharyngeal exudate aside from PND. Uvula is midline. Managing oral secretions without difficulty. Neck: Supple. Mildly tender, mobile anterior cervical lymphadenopathy bilat. Trachea is midline. No JVD. Respiratory: Respirations easy and unlabored, Breath sounds equal. Lungs are clear to auscultation; no wheezes, rhonchi, or rales; has good air movement throughout. Loose, mild, productive cough noted a few times during visit. Non-dyspneic with ambulation; able to maintain SpO2. Cardiovascular: Normal rate, Regular rhythm. Normal S1S2. No m/r/g. No peripheral edema. Gastrointestinal: Soft, non-tender, non-distended; no palpable masses or organomegaly. Bowel sounds normoactive. Musculoskeletal: Grossly normal; appropriate for age. Integumentary: [place], warm, dry, and intact. No rashes or skin discoloration appreciated. Good skin turgor. Neurologic: Alert an (more content not included)... Normal [facility] Erythrocyte distribution wid th standard deviationon 11-01-2018 Erythrocyte distribution width (RBC) [Entitic vol] 43.7 fL 35.1-43.9 [facility] Iron measurement (mass/mass) on 11-01-2018 Iron (Unsp spec) [Mass/Mass] 108 ug/dL 65-175 [facility] Laboratory - Hematology and Cell countson 11-01-2018 Erythrocyte distribution width (RBC) [Ratio] 14.3 % 11.6-14.6 [facility] No Panel Informationon 11-01 Total Iron Binding Capacity 308 ug/dL 250-450 [facility] Serum or plasma iron saturat ion measurement (mass fraction)on 11-01-2018 Iron saturation [Mass fraction] 35.1 % 15.0-55.0 [facility] Total cell counton 9 Cells counted Molgen (Bld/Tiss) [#] Not Reportable [facility] Office Visit: [facility] 11-16-19 17 Documentation of current medications (procedure) Done Invalid Interpretation Code [facility] [employer] Work Phone: Fall risk assessment No [facility] [employer] Work Phone: Clinical Lists Update: 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 Left ventricular Ejection fraction 65 % [facility] [employer] Work Phone: Lab Report: AFP, Tumor Ning donahue 07-28-2016 AFP TUMOR 2253 1.7 ng/mL 0.0-8.3 [facility] [employer] Work Phone: alpha-1 fetoprotein tumor marker, serum/plasma 1.7 ng/mL Invalid Interpretation Code 0.0-8.3 [facility] Work Phone: Lab Report: CBC W/Diff, Auto - EPLAB Onlyon 07-27-2016 Basophils/100 leukocytes 0.8 % Invalid Interpretation Code 0-1 [facility] Work Phone: Basophils/100 WBC (Bld) 0.8 % 0-1 [facility] Work Phone: Eosinophils/100 leukocytes 3.7 % Invalid Interpretation Code 0-5 [facility] Work Phone: Eosinophils/100 WBC (Bld) 3.7 % 0-5 [facility] Work Phone: Erythrocyte distribution width (RBC) [Ratio] 15.1 % High 11.6-14.6 [facility] Work Phone: Erythrocytes (RBC) 5.17 10*6/uL Invalid Interpretation Code 4.6-6.2 [facility] Work Phone: Hematocrit (Bld) [Volume fraction] 43.1 % 40-54 [facility] Work Phone: Hematocrit (HCT) 43.1 % Invalid Interpretation Code 40-54 [facility] Work Phone: Hemoglobin (HGB) 13.8 g/dL 13.0-16.5 [facility] Work Phone: Lymphocytes 1.36 X10 3/UL Invalid Interpretation Code 0.83-4.51 [facility] Work Phone: Lymphocytes (Bld) [#/Vol] 1.36 X10 3/UL 0.83-4.51 [facility] Work Phone: Lymphocytes/100 leukocytes 21.2 % Invalid Interpretation Code 19-41 [facility] Work Phone: Lymphocytes/100 WBC (Bld) 21.2 % 19-41 [facility] Work Phone: MCH 26.7 pg Low 27.0-32.0 [facility] Work Phone: MCH (RBC) [Entitic mass] 26.7 pg Low 27.0-32.0 [facility] Work Phone: MCHC 32.0 g/dL Invalid Interpretation Code 32-36 [facility] Work Phone: MCHC (RBC) [Mass/Vol] 32.0 g/dL 32-36 [facility] Work Phone: MCV 83.5 fL Invalid Interpretation Code 80-94 [facility] Work Phone: MCV (RBC) [Entitic vol] 83.5 fL 80-94 [facility] Work Phone: Monocytes/100 leukocytes 6.3 % Invalid Interpretation Code 0-10 [facility] Work Phone: Monocytes/100 WBC (Bld) 6.3 % 0-10 [facility] Work Phone: neutrophil count, blood 4.4 X10 3/UL Invalid Interpretation Code 2.0-7.7 [facility] Work Phone: Neutrophils (Bld) [#/Vol] 4.4 X10 3/UL 2.0-7.7 [facility] Work Phone: Neutrophils/100 leukocytes 67.9 % Invalid Interpretation Code 47-70 [facility] Work Phone: Neutrophils/100 WBC (Bld) 67.9 % 47-70 [facility] Work Phone: Platelet mean volume (Bld) [Entitic vol] 8.2 fL 6.2-12.0 [facility] Work Phone: Platelets 192 10*3/mm3 Invalid Interpretation Code 150-450 [facility] Work Phone: Platelets (Bld) [#/Vol] 192 10*3/mm3 150-450 [facility] Work Phone: PMV by Ruchi 8.2 fL Invalid Interpretation Code 6.2-12.0 [facility] Work Phone: RBC (Bld) [#/Vol] 5.17 10*6/uL 4.6-6.2 [facility] Work Phone: RDW-CA 15.1 % High 11.6-14.6 [facility] Work [phone] WBC (Bld) [#/Vol] 6.4 10*3/uL 4.4-11.0 [facility] Work Phone: [phone] WBC (Leukocytes) 6.4 10*3/uL Invalid Interpretation Code 4.4-11.0 [facility] Work Phone: [phone] Lab Report: Comprehensive [facility] Profilon 07-27-2016 Alanine aminotransferase (ALT) 53 U/L 12-78 [facility] Work Phone: [phone] Albumin 3.7 g/dL 3.4-5.0 [facility] Work Phone: [phone] Albumin/Globulin Ratio 0.9 {ratio} 0.9-2.4 [facility] Work Phone: [phone] Alkaline phosphatase (ALP) 103 U/L Invalid Interpretation Code 45-117 [facility] Work Phone: [phone] ALP (Bld) [Catalytic activity/Vol] 103 U/L 45-117 [facility] Work Phone: [phone] Anion gap 10 mmol/L Invalid Interpretation Code 5-15 [facility] Work Phone: [phone] Anion gap [Moles/Vol] 10 mmol/L 5-15 [facility] Work Phone: [phone] Aspartate aminotransferase (AST) 42 U/L High 15-37 [facility] Work Phone: [phone] Bilirubin (total) 0.60 mg/dL 0.20-1.00 [facility] Work Phone: [phone] BUN/Creatinine Ratio 15.9 RATIO 10-[address] [facility] Work Phone: [phone] Calcium 9.0 mg/dL 8.5-10.1 [facility] Work Phone: [phone] Chloride 101 mmol/L 98-107 [facility] Work Phone: [phone] CO2 26.0 mmol/L Invalid Interpretation Code 21.0-32.0 [facility] Work Phone: [phone] CO2 (BldV) [Partial pressure] 26.0 mmol/L 21.0-32.0 [facility] Work Phone: [phone] Creatinine 1.07 mg/dL 0.70-1.30 [facility] Work Phone: [phone] eGFR (non-black) 90 mL/min/{1.73_m2} Invalid Interpretation Code >60 [facility] Work Phone: [phone] eGFR (non-black) 74 mL/min/{1.73_m2} >60 [facility] Work Phone: [phone] EST GFR - AA 90 mL/min >60 [facility] Work Phone: [phone] Globulin 4.0 g/dL High 2.3-3.5 [facility] Work Phone: [phone] Globulin (S) [Mass/Vol] 4.0 g/dL High 2.3-3.5 [facility] Work [phone] Glucose 163 mg/dL High 70-110 [facility] Work Phone: [phone] Glucose [Mass/Vol] 163 mg/dL High 70-110 [facility] Work Phone: [phone] Potassium 4.3 mmol/L 3.5-5.1 [facility] Work Phone: [phone] Protein 7.7 g/dL 6.4-8.2 [facility] Work Phone: [phone] Sodium 137 mmol/L 136-145 [facility] Work Phone: [phone] Urea nitrogen 17 mg/dL 7-18 [facility] Work Phone: [phone] Lab Report: Ferritinon 07-27 Ferritin 17 ng/mL Low 26-388 [facility] Work Phone: [phone] Lab Report: Ironon 7 Iron 52 ug/dL Low 65-175 [facility] Work Phone: [phone] Lab Report: Iron Binding Cap acity,Totalon 07-27-2016 iron binding capacity, total 322 ug/dL 250-450 [facility] Work Phone: Lab Report: LDHon 07-27-2016 lactate dehydrogenase - serum 184 U/L Invalid Interpretation Code 87-241 [facility] Work Phone: [phone] LDH 184 U/L 87-241 [facility] Work Phone: [phone] Lab Report: Uric Acidon 06-29 Urate 5.8 mg/dL 3.5-7.2 [facility] Work Phone: [phone] Office Visit: 6 month f/u (H H) *PHQ9 Completeon 07-27-2016 Adolescent depression screening assessment Adolescent depression screening assessment Invalid Interpretation Code [employer] Phone: [phone] Adult depression screening assessment Adolescent depression screening assessment [employer] Phone: [phone] Dietary management education, guidance, and counseling (procedure) yes Invalid Interpretation Code [employer] Phone: [phone] Documentation of current medications (procedure) Done Invalid Interpretation Code [facility] Work Phone: [phone] Tobacco smoking status NHIS Former smoker [facility] Work Phone: [phone] Tobacco use CPHS Former smoker Invalid Interpretation Code [employer] Phone: [phone] Replaced Document: Jeri Bookeron 07-07-2016 EKG QRS axis 47 deg [employer] Phone: [phone] electrocardiogram interpretation Sinus Bradycardia WITHIN NORMAL LIMITS Invalid Interpretation Code [employer] Phone: [phone] GE use only - for [employer] import when terms are not otherwise specified 407 ms Invalid Interpretation Code [employer] Phone: [phone] Interpretation Sinus Bradycardia WI THIN NORMAL LIMITS [employer] Phone: [phone] P [place] 34 deg [facility] Work Phone: [phone] P wave axis, electrocardiogram 34 deg Invalid Interpretation Code [facility] Work Phone: [phone] MA Interval 170 ms [facility] Work Phone: [phone] MA interval, electrocardiogram 170 ms Invalid Interpretation Code [facility] Work Phone: [phone] Pulse (Heart Rate) 57 /min Invalid Interpretation Code [facility] Work Phone: [phone] QRS axis, electrocardiogram 47 deg Invalid Interpretation Code [facility] Work Phone: [phone] QRS Duration 84 ms [facility] Work Phone: [phone] QRS duration, electrocardiogram 84 ms Invalid Interpretation Code [facility] Work Phone: [phone] QT Interval new path ms [facility] Work Phone: [phone] QT interval, electrocardiogram new path ms Invalid Interpretation Code [facility] Work Phone: [phone] QTc Aldana 407 ms [facility] Work Phone: [phone] T Milaca 29 deg [facility] Work Phone: [phone] T wave axis, electrocardiogram 29 deg Invalid Interpretation Code [facility] Work Phone: [phone] 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 Ur-Randomon 01-28-2016 Protein [Mass] in unspecified time Urine 8.9 mg/dL Not Estab. [facility] Work Phone: [phone] Lab Report: Protein Electrop h, Son 01-28-2016 Globulin . Invalid Interpretation Code [facility] Work Phone: [phone] M-SPIKE . [facility] Work Phone: [phone] Albumin 3.6 g/dL 2.9-4.4 [facility] Work Phone: [phone] Albumin/Globulin Ratio 0.9 (?) 0.7-1.7 [facility] Work Phone: [phone] ALPHA-1 GLOBUL 0.2 g/dL 0.0-0.4 [facility] Work Phone: [phone] ALPHA-2 GLOBUL 0.9 g/dL 0.4-1.0 [facility] Work Phone: BETA GLOBULIN 1.1 g/dL 0.7-1.3 [facility] Work Phone: [phone] GAMMA GLOBULIN 1.6 g/dL 0.4-1.8 [facility] Work Phone: [phone] Globulin 1.6 g/dL Invalid Interpretation Code 0.4-1.8 [facility] Work Phone: [phone] Globulin 1.1 g/dL Invalid Interpretation Code 0.7-1.3 [facility] Work Phone: [phone] Globulin 0.9 g/dL Invalid Interpretation Code 0.4-1.0 [facility] Work Phone: [phone] Globulin 0.2 g/dL Invalid Interpretation Code 0.0-0.4 [facility] Work Phone: [phone] Globulin 3.8 g/dL Invalid Interpretation Code 2.2-3.9 [facility] [employer] Work Phone: [phone] Globulin (S) [Mass/Vol] 3.8 g/dL 2.2-3.9 [facility] Work Phone: [phone] INTERPRETATION Comment . [facility] Work Phone: [phone] lab comments Comment Invalid Interpretation Code . [facility] Work Phone: [phone] NOTE: Comment . [facility] Work Phone: [phone] Protein 7.4 g/dL 6.0-8.5 [facility] Work Phone: [phone] serum protein electrophoresis, interpretation/comment Comment Invalid Interpretation Code . [facility] Work Phone: [phone] Lab Report: Bilirubin, Direc ton 01-23-2016 Bilirubin (direct) 0.12 mg/dL 0.00-0.30 [facility] Work Phone: [phone] Lab Report: CBC W/Diff, Auto matedon 01-23-2016 Erythrocyte distribution width (RBC) [Ratio] 44.2 fL High 35.1-43.9 [facility] Work Phone: [phone] Immature granulocytes (Bld) [#/Vol] 0.200 % 0.0-0.9 [facility] Work Phone: [phone] immature granulocytes, percentage of total cells, blood 0.200 % Invalid Interpretation Code 0.0-0.9 [facility] Work Phone: [phone] red blood cell distribution width, size density 44.2 fL High 35.1-43.9 [facility] Work Phone: [phone] Lab Report: Lipid Profileon 07-15-2015 Cholesterol 166 mg/dL 200 [facility] Work Phone: [phone] HDL Cholesterol 37 mg/dL Low [facility] Work Phone: [phone] LDL Cholesterol 106 mg/dL 0-130 [facility] Work Phone: [phone] Triglyceride 115 mg/dL [facility] Work Phone: [phone] very low density lipoproteins 23 mg/dL 5-40 [facility] Work Phone: [phone] Replaced Document: Microalb: Creat Ratio,Random URon 07-15-2015 ACR (microalbumin/creatini ne) ratio 6.9 MG/G CRE Invalid Interpretation Code <30 mg/g CRE [facility] Work Phone: [phone] Albumin/Creatinine DL <= 20 mg/L (U) [Ratio] 6.9 MG/G CRE <30 mg/g CRE [facility] Work Phone: [phone] Urine, creatinine 159.00 mg/dL NO RANGE EST. [facility] Work Phone: [phone] Urine, microalbumin 1.1 mg/dL Units converted. See lab report for original value. [facility] Work Phone: [phone] Office Visiton 04-16-2015 Smoking cessation education (procedure) yes Invalid Interpretation Code [employer] Phone: [phone] Lab Report: CBC W/Diff, Auto - EPLAB Onlyon 01-15-2015 Absolute Neut 3.9 X10 3/UL 2.0-7.7 [facility] Work Phone: [phone] Absolute Neutrophil count 3.9 X10 3/UL Invalid Interpretation Code 2.0-7.7 [facility] Work Phone: [phone] Lab Report: LDHon 01-15-2015 Lactate dehydrogenase (LDH) 193 U/L 84-246 [facility] Work Phone: Office Visit: 3 month follow up.on 06-27-2012 Colonoscopy (procedure) Hyperplastic Polyp Invalid Interpretation Code [facility] [employer] Phone: Vital Signs Date Time Vital Sign Value Performing Clinician Facility 11-27-2024 14:19-0400 Body height 187.[address] Ada Alexander DO Work Phone: [facility] 11-27-2024 14:19-0400 Body mass index (BMI) [Ratio] 35.6 kg/m2 Dr. Ada Alexander DO Work Phone: [facility] 11-27-2024 14:19-0400 Body temperature 98.2 [degF] Dr. Aad Alxeander DO Work Phone: [facility] 11-27-2024 14:19-0400 Body weight 125.[address] Ada Alexander DO Work Phone: [facility] 11-27-2024 14:19-0400 Diastolic blood pressure 77 mm[Hg] Dr. Ada Alexander DO Work Phone: [facility] 11-27-2024 14:19-0400 Heart rate 63 /min Dr. Ada Alexander DO Work Phone: [facility] 11-27-2024 14:19-0400 Respiratory rate 18 /min Dr. Ada Alexander DO Work Phone: [facility] 11-27-2024 14:19-0400 SaO2% (BldA) [Mass fraction] 93 % Dr. Ada Alexander DO Work Phone: [facility] 11-27-2024 14:19-0400 Systolic blood pressure 116 mm[Hg] Dr. Ada Alexander DO Work Phone: [facility] 05-30-2024 15:44-0500 Body temperature 97.2 [degF] Dr. Ada Alexander DO Work Phone: [facility] 05-30-2024 15:44-0500 Diastolic blood pressure 67 mm[Hg] Dr. Ada Alexander DO Work Phone: [facility] 05-30-2024 15:44-0500 Heart rate 54 /min Dr. Ada Alexander DO Work Phone: [facility] 05-30-2024 15:44-0500 Respiratory rate 16 /min Dr. Ada Alexander DO Work Phone: [facility] 05-30-2024 15:44-0500 SaO2% (BldA) [Mass fraction] 96 % Dr. Ada Alexander DO Work Phone: [facility] 05-30-2024 15:44-0500 Systolic blood pressure 141 mm[Hg] Dr. Ada Alexander DO Work Phone: [facility] 05-30-2024 15:27-0500 Body mass index (BMI) [Ratio] 38.5 kg/m2 Dr. Ada Alexander DO Work Phone: [facility] 09-01-2023 10:11-0500 Diastolic blood pressure 84 mm[Hg] Dr. Ada Alexander Work Phone: [facility] 09-01-2023 10:11-0500 Systolic blood pressure 128 mm[Hg] Dr. Ada Alexander Work Phone: [facility] 09-01-2023 09:30-0500 Body height 187.[address] Ada Alexander Work Phone: [facility] 09-01-2023 09:30-0500 Body mass index (BMI) [Ratio] 34.1 kg/m2 Dr. Ada Alexander Work Phone: [facility] 09-01-2023 09:30-0500 Body weight 120.[address] Ada Alexander Work Phone: [facility] 09-01-2023 09:30-0500 Heart rate 59 /min Dr. Ada Alexander Work Phone: [facility] 09-01-2023 09:30-0500 Respiratory rate 20 /min Dr. Ada Alexander Work Phone: [facility] 09-01-2023 09:30-0500 SaO2% (BldA) [Mass fraction] 93 % Dr. Ada Alexander Work Phone: [facility] 08-01-2023 18:14-0500 Diastolic blood pressure 88 mm[Hg] Dr. Ada Alexander Work Phone: [facility] 08-01-2023 18:14-0500 Heart rate 76 /min Dr. Ada Alexander Work Phone: [facility] 08-01-2023 18:14-0500 Respiratory rate 14 /min Dr. Ada Alexander Work Phone: [facility] 08-01-2023 18:14-0500 SaO2% (BldA) [Mass fraction] 99 % Dr. Ada Alexander Work Phone: [facility] 08-01-2023 18:14-0500 Systolic blood pressure 147 mm[Hg] Dr. Ada Alexander Work Phone: [facility] 08-01-2023 13:32-0500 Body height 187.[address] Ada Alexander Work Phone: [facility] 08-01-2023 13:32-0500 Body mass index (BMI) [Ratio] 35.9 kg/m2 Dr. Ada Alexander Work Phone: [facility] 08-01-2023 13:32-0500 Body temperature 96.8 [degF] Dr. Ada Alexander Work Phone: [facility] 08-01-2023 13:32-0500 Body weight 126.[address] Ada Alexander Work Phone: [facility] 06-01-2023 15:35-0500 Diastolic blood pressure 63 mm[Hg] Dr. Ada Alexander Work Phone: [facility] 06-01-2023 15:35-0500 Heart rate 61 /min Dr. Ada Alexander Work Phone: [facility] 06-01-2023 15:35-0500 Respiratory rate 16 /min Dr. Ada Alexander Work Phone: [facility] 06-01-2023 15:35-0500 Systolic blood pressure 123 mm[Hg] Dr. Ada Alexander Work Phone: [facility] 06-01-2023 15:22-0500 Body height 187.[address] Ada Alexander Work Phone: [facility] 06-01-2023 14:36-0500 Body mass index (BMI) [Ratio] 35.9 kg/m2 Dr. Ada Alexander Work Phone: [facility] 06-01-2023 14:36-0500 Body temperature 97.5 [degF] Dr. Ada Alexander Work Phone: [facility] 06-01-2023 14:36-0500 Body weight 127.[address] Ada Alexander Work Phone: [facility] 06-01-2023 14:36-0500 Diastolic blood pressure 78 mm[Hg] Dr. Ada Alexander Work Phone: [facility] 06-01-2023 14:36-0500 Heart rate 63 /min Dr. Ada Alexander Work Phone: [facility] 06-01-2023 14:36-0500 Respiratory rate 18 /min Dr. Ada Alexander Work Phone: [facility] 06-01-2023 14:36-0500 SaO2% (BldA) [Mass fraction] 95 % Dr. Ada Alexander Work Phone: [facility] 12-06-2023 14:36-0500 Systolic blood pressure 118 mm[Hg] Dr. Ada Alexander Work Phone: [facility] 03-22-2023 09:10-0400 Body height 187.[address] Ada Alexander Work Phone: [facility] 03-22-2023 09:10-0400 Body mass index (BMI) [Ratio] 36.1 kg/m2 Dr. Ada Alexander Work Phone: [facility] 03-22-2023 09:10-0400 Body weight 127.[address] Ada Alexander Work Phone: [facility] 03-22-2023 09:10-0400 Diastolic blood pressure 77 mm[Hg] Dr. Ada Alexander Work Phone: [facility] 03-22-2023 09:10-0400 Heart rate 74 /min Dr. Ada Alexander Work Phone: [facility] 03-22-2023 09:10-0400 Respiratory rate 18 /min Dr. Ada Alexander Work Phone: [facility] 03-22-2023 09:10-0400 SaO2% (BldA) [Mass fraction] 94 % Dr. Ada Alexander Work Phone: [facility] 03-22-2023 09:10-0400 Systolic blood pressure 146 mm[Hg] Dr. Ada Alexander Work Phone: [facility] 03-08-2023 14:24-0400 Body height 187.[address] Ada Alexander Work Phone: [facility] 03-08-2023 14:24-0400 Body weight 130.[address] Ada Alexander Work Phone: [facility] 03-08-2023 07:53-0400 Body mass index (BMI) [Ratio] 36.8 kg/m2 Dr. Ada Alexander Work Phone: [facility] 01-20-2023 10:28-0400 Body height 187.[address] Ada Alexander Work Phone: [facility] 01-20-2023 10:28-0400 Body mass index (BMI) [Ratio] 36.1 kg/m2 Dr. Ada Alexander Work Phone: [facility] 01-20-2023 10:28-0400 Body weight 127.[address] Ada Alexander Work Phone: [facility] 01-20-2023 10:28-0400 Diastolic blood pressure 87 mm[Hg] Dr. Ada Alexander Work Phone: [facility] 01-20-2023 10:28-0400 Heart rate 97 /min Dr. Ada Alexander Work Phone: [facility] 01-20-2023 10:28-0400 Respiratory rate 18 /min Dr. Ada Alexander Work Phone: [facility] 01-20-2023 10:28-0400 SaO2% (BldA) [Mass fraction] 98 % Dr. Ada Alexander Work Phone: [facility] 01-20-2023 10:28-0400 Systolic blood pressure 124 mm[Hg] Dr. Ada Alexander Work Phone: [facility] 01-18-2023 17:13-0400 Heart rate 85 /min Dr. Ada Alexander Work Phone: [facility] 01-18-2023 17:13-0400 Respiratory rate 18 /min Dr. Ada Alexander Work Phone: [facility] 01-18-2023 17:13-0400 SaO2% (BldA) [Mass fraction] 95 % Dr. Ada Alexander Work Phone: [facility] 01-18-2023 15:02-0400 Body mass index (BMI) [Ratio] 36.5 kg/m2 Dr. Ada Alexander Work Phone: [facility] 01-18-2023 15:02-0400 Body temperature 97 [degF] Dr. Ada Alexander Work Phone: [facility] 01-18-2023 15:02-0400 Body weight [address] Ada Alexander Work Phone: [facility] 01-18-2023 15:02-0400 Diastolic blood pressure 84 mm[Hg] Dr. Ada Alexander Work Phone: [facility] 01-18-2023 15:02-0400 Systolic blood pressure 128 mm[Hg] Dr. Ada Alexander Work Phone: [facility] 12-08-2022 14:49-0400 Body mass index (BMI) [Ratio] 36.8 kg/m2 Dr. Ada Alexander Work Phone: [facility] 12-08-2022 14:49-0400 Body temperature 97.7 [degF] Dr. Ada Alexander Work Phone: [facility] 12-08-2022 14:49-0400 Body weight 126.[address] Ada Alexander Work Phone: [facility] 12-08-2022 14:49-0400 Diastolic blood pressure 77 mm[Hg] Dr. Ada Alexander Work Phone: [facility] 12-08-2022 14:49-0400 Heart rate 62 /min Dr. Ada Alexander Work Phone: [facility] 12-08-2022 14:49-0400 Respiratory rate 16 /min Dr. Ada Alexander Work Phone: [facility] 12-08-2022 14:49-0400 SaO2% (BldA) [Mass fraction] 62 % Dr. Ada Alexander Work Phone: [facility] 12-08-2022 14:49-0400 Systolic blood pressure 133 mm[Hg] Dr. Ada Alexander Work Phone: [facility] 10-28-2022 17:05-0400 Body mass index (BMI) [Ratio] 36.9 kg/m2 Dr. Ada Alexander Work Phone: [facility] 10-28-2022 17:05-0400 Body temperature 97.8 [degF] Dr. Ada Alexander Work Phone: [facility] 10-28-2022 17:05-0400 Body weight [address] Ada Alexander Work Phone: [facility] 10-28-2022 17:05-0400 Diastolic blood pressure 90 mm[Hg] Dr. Ada Alexander Work Phone: [facility] 10-28-2022 17:05-0400 Heart rate 67 /min Dr. Ada Alexander Work Phone: [facility] 10-28-2022 17:05-0400 Respiratory rate 16 /min Dr. Ada Alexander Work Phone: [facility] 10-28-2022 17:05-0400 SaO2% (BldA) [Mass fraction] 96 % Dr. Ada Alexander Work Phone: [facility] 10-28-2022 17:05-0400 Systolic blood pressure 162 mm[Hg] Dr. Ada Alexander Work Phone: [facility] 06-09-2022 14:54-0500 Diastolic blood pressure 77 mm[Hg] Dr. Ada Alexander Work Phone: [facility] 06-09-2022 14:54-0500 Heart rate 67 /min Dr. Ada Alexander Work Phone: [facility] 06-09-2022 14:54-0500 Respiratory rate 16 /min Dr. Ada Alexander Work Phone: [facility] 06-09-2022 14:54-0500 Systolic blood pressure 141 mm[Hg] Dr. Ada Alexander Work Phone: [facility] 12-09-2021 16:36-0400 Diastolic blood pressure 71 mm[Hg] Dr. Ada Alexnader Work Phone: [facility] Work Phone: 12-09-2021 16:36-0400 Heart rate 61 /min Dr. Ada Alexander Work Phone: [facility] Work Phone: 12-09-2021 16:36-0400 Respiratory rate 16 /min Dr. Ada Alexander Work Phone: [facility] Work Phone: 12-09-2021 16:36-0400 SaO2% (BldA) [Mass fraction] 92 % Dr. Ada Alexander Work Phone: [facility] 12-09-2021 16:36-0400 Systolic blood pressure 140 mm[Hg] Dr. Ada Alexander Work Phone: [facility] Work Phone: 12-09-2021 16:12-0400 Body mass index (BMI) [Ratio] 36.2 kg/m2 Dr. Ada Alexander Work Phone: [facility] 12-09-2021 15:00-0400 Body height 189.[address] Ada Alexander Work Phone: [facility] Work Phone: 12-09-2021 15:00-0400 Body mass index (BMI) [Ratio] 35.6 kg/m2 Dr. Ada Alexander Work Phone: [facility] Work Phone: 12-09-2021 15:00-0400 Body temperature 97.6 [degF] Dr. Ada Alexander Work Phone: [facility] Work Phone: 12-09-2021 15:00-0400 Body weight 127.[address] Ada Alexander Work Phone: [facility] Work Phone: 12-09-2021 15:00-0400 Diastolic blood pressure 73 mm[Hg] Dr. Ada Alexander Work Phone: [facility] Work Phone: 12-09-2021 15:00-0400 Heart rate 66 /min Dr. Ada Alexander Work Phone: [facility] Work Phone: 12-09-2021 15:00-0400 Respiratory rate 16 /min Dr. Ada Alexander Work Phone: [facility] Work Phone: 12-09-2021 15:00-0400 SaO2% (BldA) [Mass fraction] 93 % Dr. Ada Alexander Work Phone: [facility] Work Phone: 12-09-2021 15:00-0400 Systolic blood pressure 145 mm[Hg] Dr. Ada Alexander Work Phone: [facility] Work Phone: 09-16-2021 12:41-0400 Body height 187.9 cm Ada Alexander Other Phone: [facility] 09-16-2021 12:41-0400 Body temperature 98.42 [degF] Ada Alexander Other Phone: [facility] 09-16-2021 12:41-0400 Diastolic blood pressure 90 mm[Hg] Ada Alexander Other Phone: [facility] 09-16-2021 12:41-0400 Heart rate 61 /min Ada Alexander Other Phone: [facility] 09-16-2021 12:41-0400 Respiratory rate 16 /min Ada Alexander Other Phone: [facility] 09-16-2021 12:41-0400 SaO2% (BldA) [Mass fraction] 95 % Ada Alexander Other Phone: [facility] 09-16-2021 12:41-0400 Systolic blood pressure 168 mm[Hg] Ada Alexander Other Phone: [facility] 06-02-2021 12:03-0500 Body weight 129.[address] Ada Alexander Work Phone: [facility] 12-31-2020 13:46-0400 Body height 187.9 cm Ada Alexander Other Phone: [facility] 12-31-2020 13:46-0400 Body temperature 98.24 [degF] Ada Alexander Other Phone: [facility] 12-31-2020 13:46-0400 Diastolic blood pressure 73 mm[Hg] Ada Alexander Other Phone: [facility] 12-31-2020 13:46-0400 Heart rate 60 /min Ada Alexander Other Phone: [facility] 12-31-2020 13:46-0400 Respiratory rate 16 /min Ada Alexander Other Phone: [facility] 12-31-2020 13:46-0400 SaO2% (BldA) [Mass fraction] 97 % Ada Alexander Other Phone: [facility] 12-31-2020 13:46-0400 Systolic blood pressure 124 mm[Hg] Ada Alexander Other Phone: [facility] 04-30-2020 14:09-0500 Body temperature 97.3 [degF] Dr. Ada Alexander Work Phone: [facility] 11-15-2016 14:00-0400 BMI (Body Mass Index) 38.43 kg/m2 Yamini Lim [facility] Work Phone: 11-15-2016 14:00-0400 Body weight 137.62 kg [facility] Work Phone: 11-15-2016 14:00-0400 BP Diastolic 80 mm[Hg] [facility] Work Phone: 11-15-2016 14:00-0400 BP Systolic 144 mm[Hg] [facility] Work Phone: 11-15-2016 14:00-0400 Pulse (Heart Rate) 56 /min [facility] Work Phone: 11-15-2016 14:00-0400 Weight 137.62 kg Y[facility]i [facility] Work Phone: 07-27-2016 10:38-0500 BMI (Body Mass Index) 37.92 kg/m2 [facility] Work Phone: 07-27-2016 10:38-0500 Body Temperature 97.5 [degF] [facility] Work Phone: 07-27-2016 10:38-0500 Body weight 136.09 kg Yamini [facility] Work Phone: 07-27-2016 10:38-0500 BP Diastolic 79 mm[Hg] [facility] Work Phone: 07-27-2016 10:38-0500 BP Systolic 123 mm[Hg] Latoya Bynum RN [facility] Work Phone: 07-27-2016 10:38-0500 BSA (Body Surface Area) 2.59 m2 Latoya Bynum RN [facility] Work Phone: 07-27-2016 10:38-0500 Height 189.23 cm [facility] Work Phone: 07-27-2016 10:38-0500 Pulse (Heart Rate) 60 /min [facility] Work Phone: 07-27-2016 10:38-0500 Pulse Oximetry 95 % Latoya Bynum RN [facility] Work Phone: 07-27-2016 10:38-0500 Respiratory Rate 20 /min [facility] Work Phone: 07-27-2016 10:38-0500 Weight 135.81 kg Latoya Bynum RN [facility] Work Phone: 07-27-2016 10:38-0500 Weight 136.09 kg Latoya Bynum RN [facility] Work Phone: 07-07-2016 11:20-0500 Heart rate 57 /min [facility] Work Phone: 06-04-2016 08:01-0500 Height 189.23 cm [facility] Work Phone: 04-27-2016 12:28-0400 Body surface area Derived from formula 89.70 mL/min [facility] Work Phone: 01-27-2016 11:18-0400 Body Temperature 98.29 [degF] [facility] Work Phone: Encounters Encounter Date Encounter Type Care Provider Facility Start: 05-10-2025 ambulatory Ada Alexander Facility: [facility] Start: 11-27-2024 Registered Recurring Gabriela CANTOR -[facility] Start: 11-27-2024 End: 11-27-2024 Patient encounter procedure Gabriela CANTOR [facility] Work Phone: Start: 11-27-2024 End: 11-27-[address] Ada Alexander DO Work Phone: [facility] Work Phone: Start: 07-28-2024 ambulatory [facility] Facility:[facility] Start: 07-12-2024 End: 07-12-2024 ambulatory Faustino Elsy Facility:[facility] Start: 06-22-2024 End: 06-22-2024 ambulatory Faustino Elsy Facility:[facility] Start: 06-19-2024 End: 06-19-2024 ambulatory Jay Montiel PA Facility:[facility] Start: 06-06-2024 End: 06-06-[address] Facility:[facility] Start: 05-30-2024 End: 05-30-[address] Facility:[facility] Start: 05-25-2024 End: 05-26-2024 ambulatory Hollywood Elsy Facility:[facility] Start: 05-07-2024 End: 05-07-2024 ambulatory Ada Alexander Facility:[facility] Start: 03-29-2024 End: 03-29-2024 ambulatory Ada Alexander Facility:[facility] Start: 03-20-2024 End: 03-20-2024 ambulatory Ada Alexander Facility:[facility] Start: 03-19-2024 End: 03-19-2024 ambulatory ARI [facility]ABALL[facility] Start: 03-16-2024 End: 03-16-2024 ambulatory [facility] Start: 03-09-2024 End: 03-09-2024 ambulatory [facility] Start: 03-08-2024 End: 03-08-2024 ambulatory Ada Alexander Facility:[facility] Start: 03-05-2024 End: 03-05-2024 ambulatory [facility] Start: 02-24-2024 End: 02-24-2024 ambulatory [facility] Start: 02-23-2024 End: 02-23-2024 ambulatory Ada Alexander Facility:[facility] Start: 02-20-2024 End: 02-20-2024 ambulatory [facility] Start: 02-16-2024 End: 02-16-2024 ambulatory ANDREZ PINEDO [facility] Start: 10-20-2023 End: 10-25-[address] Ada Alexander Work Phone: [facility] Work Phone: Start: 10-20-2023 End: 10-25-[address] Ada Alexander Work Phone: [facility] Work Phone: Start: 09-22-2023 End: 09-25-[address] Ada Alexander Work Phone: [facility] Work Phone: Start: 09-22-2023 End: 09-25-[address] Ada Alexander Work Phone: [facility] Work Phone: Start: 09-01-2023 End: 09-01-[address] Ada Alexander Work Phone: [facility] Work Phone: Start: 08-01-2023 End: 08-01-2023 Emergency department patient visit Dr. Ada Alexander Work Phone: [facility]Emer[facility] Department Work Phone: Start: 07-11-2023 End: 07-11-[address] Ada Alexander Work Phone: [facility] Work Phone: Start: 07-11-2023 End: 07-11-[address] Ada Alexander Work Phone: [facility] Work Phone: Start: 06-14-2023 End: 06-14-[address] Ada Alexander Work Phone: [facility] Work Phone: Start: 06-14-2023 End: 06-14-[address] Ada Alexander Work Phone: [facility] Work Phone: Start: 06-01-2023 End: 06-01-[address] Ada Alexander Work Phone: [facility] Work Phone: Start: 06-01-[address] Ada Alexander Work Phone: [facility] Start: 03-22-2023 End: 03-22-[address] Ada Alexander Work Phone: [facility] Work Phone: Start: 03-22-2023 End: 03-22-[address] Ada Alexander Work Phone: [facility] Work Phone: Start: 03-22-2023 End: 03-22-[address] Ada Alexander Work Phone: [facility] Work Phone: Start: 03-09-2023 End: 03-09-2023 Admission to same day surgery center Dr. Ada Alexander Work Phone: [facility] Work Phone: Start: 03-09-2023 End: 03-09-[address] Ada Alexander Work Phone: [facility] Work Phone: Start: 02-13-2023 Non-patient / Non-visit Dr. Janae Alexander Work Phone: [facility] Start: 01-28-2023 Non-patient / Non-visit Dr. Janae Alexander Work Phone: [facility] Work Phone: Start: 01-28-2023 Non-patient / Non-visit Dr. Janae Alexander Work Phone: [facility] Start: 01-28-2023 End: 01-28-[address] Ada Alexander Work Phone: [facility] Work Phone: Start: 01-28-2023 End: 01-28-[address] [facility] Start: 01-20-2023 End: 01-20-[address] Ada Alexander Work Phone: [facility] Work Phone: Start: 01-18-2023 End: 01-18-2023 Emergency department patient visit Dr. Ada Alexander Work Phone: [facility] Work Phone: Start: 12-08-[address] dAa Alexander Work Phone: [facility] Start: 12-08-2022 End: 12-08-[address] Ada Alexander Work Phone: [facility] Work Phone: Start: 10-28-2022 End: 10-28-[address] Ada Alexander Work Phone: [facility] Work Phone: Start: 12-15-2021 End: 12-15-[address] Ada Alexander Work Phone: [facility] Start: 12-09-2021 End: 12-09-[address] Ada Alexander Work Phone: [facility] Start: 12-09-[address] Ada Alexander Work Phone: [facility] Start: 09-16-2021 End: 09-16-2021 Emergency department patient visit Vani Cordon [facility] 02 Start: 12-31-2020 End: 12-31-2020 Emergency department patient visit Vani Cordon [facility] 02 Start: 06-19-2018 End: 09-15-2018 Patient encounter procedure Ray Eshenaur Facility:[facility] Procedures Date Procedure Procedure Detail Performing Clinician Start: 11-27-[address] Ada Alexander DO Work Phone: Start: 05-30-2024 Measurement of renal function Dr. Ada Alexander DO Work Phone: Comment on above: GFR Calc Start: 08-01-2023 X-ray of chest posteroanterior view Dr. Ada Alexander Work Phone: Start: 06-14-[address] Ada Alexander Work Phone: Start: 06-14-[address] Ada Alexander Work Phone: Start: 12-15-[address] Ada Alexander Work Phone: Start: 11-15-2016 End: 11-15-2016 Documentation of current medications Yamini Lim Start: 11-15-2016 End: 11-15-2016 REGISTERED [facility] Latoya Wadsworth PA-C Work Phone: Start: 11-15-2016 End: 11-15-2016 Follow Up Appt 6 months Latoya melchor PA-C Work Phone: Start: 07-27-2016 End: 07-27-2016 Dietary management education, guidance, and counseling Yamini Ramosby Start: 07-27-2016 End: 07-27-2016 *CMP Complete Metabolic Panel Eddie Villalta Work Phone: Start: 07-27-2016 End: 07-27-2016 Ferritin Eddie Villalta Work Phone: Start: 07-27-2016 End: 07-27-2016 Iron Eddie Villalta Work Phone: Start: 07-27-2016 End: 07-27-2016 Iron binding capacity [Mass/volume] in Serum or Plasma Eddie Villalta Work Phone: Start: 07-27-2016 End: 07-27-2016 Lactate dehydrogenase (LDH) Eddie gonzáles Work Phone: Start: 07-27-2016 End: 07-27-2016 Urate Eddie Villalta Work Phone: Start: 07-07-2016 End: 07-07-2016 Electrocardiogram, complete Faustino Howard i, MD Start: 07-07-2016 End: 07-07-2016 Follow Up Appt 4 months Penny Ramirez Start: 07-07-2016 End: 07-07-2016 MMM Faustino Chin MD Start: 06-04-2016 End: 06-04-2016 REGISTERED [facility] HE[facility] Faustino Chin MD Start: 06-04-2016 End: 06-11-2016 Echocardiography Faustino Chin MD Start: 06-04-2016 End: 06-04-2016 Follow Up Appt 6 weeks Faustino Chin MD Start: 04-27-2016 End: 04-27-2016 *CMP Complete Metabolic Panel Eddie Villalta Work Phone: Start: 04-27-2016 End: 04-27-2016 Ferritin Eddie Villalta Work Phone: Start: 04-27-2016 End: 04-27-2016 Iron Eddie Villalta Work Phone: Start: 04-27-2016 End: 04-27-2016 Iron binding capacity [Mass/volume] in Serum or Plasma Eddie Villalta Work Phone: Start: 04-27-2016 End: 04-27-2016 Lactate dehydrogenase (LDH) Eddie Clark gonzáles Work Phone: Start: 04-27-2016 End: 04-27-2016 Urate Eddie Villalta Work Phone: Start: 01-23-2016 End: 01-26-2016 *CBC with Differential Eddie Villalta Work Phone: Start: 01-23-2016 End: 01-26-2016 *CMP Complete Metabolic Panel Eddie Huitron Alapenny Work Phone: Start: 01-23-2016 End: 01-26-2016 Ferritin Eddie Villalta Work Phone: Start: 01-23-2016 End: 01-26-2016 Lactate dehydrogenase (LDH) Eddie Huitron A gonzáles Work Phone: Start: 01-23-2016 End: 01-26-2016 Urate Eddie Villalta Work Phone: Start: 11-25-2015 End: 11-26-2015 *CMP Complete Metabolic Panel Eddie Villalta Work Phone: Start: 11-25-2015 End: 11-26-2015 Lactate dehydrogenase (LDH) Eddie Clark gonzáles Work Phone: Start: 11-25-2015 End: 11-26-2015 Urate Eddie Villalta Work Phone: Start: 10-15-2015 End: 10-28-2015 *CMP Complete Metabolic Panel Lalito Kelvin Machelle DO Start: 10-15-2015 End: 10-28-2015 Ferritin Lalito Kelvin Machelle DO Start: 10-15-2015 End: 10-28-2015 Lactate dehydrogenase (LDH) Lalito Kelvin Ac harya DO Start: 10-15-2015 End: 10-28-2015 Urate Lalito H Machelle DO Start: 07-15-2015 End: 07-15-2015 *CMP Complete Metabolic Panel Lalito H Machelle DO Start: 07-15-2015 End: 07-15-2015 Ferritin Lalito Carty DO Start: 07-15-2015 End: 07-15-2015 Lactate dehydrogenase (LDH) Lalito bunch DO Start: 07-15-2015 End: 07-15-2015 Urate Lalito Carty DO Start: 04-16-2015 End: 04-16-2015 Smoking cessation education Yamini Lim Start: 04-16-2015 End: 04-16-2015 *CMP Complete Metabolic Panel Morgan M Alam Work Phone: Start: 04-16-2015 End: 04-16-2015 Lactate dehydrogenase (LDH) Morgan M A gonzáles Work Phone: Start: 04-16-2015 End: 04-16-2015 Urate Morgan M Alam Work Phone: Start: 01-15-2015 End: 01-21-2015 *CMP Complete Metabolic Panel Morgan M Alam Work Phone: Start: 01-15-2015 End: 01-21-2015 Lactate dehydrogenase (LDH) Morgan M A gonzáles Work Phone: Start: 01-15-2015 End: 01-21-2015 Urate Morgan M Alam Work Phone: Start: 10-16-2014 End: 10-16-2014 *CMP Complete Metabolic Panel Morgan M Alam Work Phone: Start: 10-16-2014 End: 10-16-2014 Ferritin Morgan M Alam Work Phone: Start: 10-16-2014 End: 10-16-2014 Lactate dehydrogenase (LDH) Morgan M A gonzáles Work Phone: Start: 10-16-2014 End: 10-16-2014 Urate Morgan M Alam Work Phone: Start: 07-17-2014 End: 10-10-2014 *CBC with Differential Morgan M Alam Work Phone: Start: 07-17-2014 End: 10-10-2014 Ferritin Morgan M Alam Work Phone: Start: 06-27-2012 End: 06-27-2012 Aster Yamini Lim Plan of Treatment Date Care Activity Detail Author Start: 11-27-2024 Phlebotomy [facility] Start: 11-27-2024 [facility] Start: 05-30-2024 Phlebotomy [facility] Start: 08-01-2023 Incentive spirometry [facility] Start: 08-01-2023 [facility] Start: 06-01-2023 Phlebotomy [facility] Start: 06-09-2022 Phlebotomy [facility] Start: 12-09-2021 Phlebotomy [facility] Start: 06-02-2021 Phlebotomy [facility] Start: 05-02-2019 Flushing of Port-a-cath [facility] Work Phone: Start: 05-02-2019 Irrigation of vascular catheter [facility] Start: 05-11-2018 Ferritin [Mass/volume] in Serum or Plasma [facility] Start: 04-29-2017 End: 04-29-2017 Appointment Appointment [facility] Work Phone: Start: 04-29-2017 End: 04-29-2017 Appointment Appointment [facility] Work Phone: Start: 11-15-2016 End: 11-15-2016 Appointment [facility] Work Phone: Start: 11-15-2016 End: 11-15-2016 REGISTERED NURSE [facility]IORAL HEALTH REGISTERED [facility] Work Phone: Start: 11-15-2016 End: 07-27-2016 Echo exam of abdomen US Abdomen, limited [facility] Work Phone: Start: 11-15-2016 End: 11-15-2016 Follow Up Appt 6 months Follow Up Appt 6 months [facility] Work Phone: Start: 10-25-2016 Ferritin [Mass/volume] in Serum or Plasma [facility] Start: 10-25-2016 Iron [Mass/mass] in Unspecified specimen [facility] Start: 10-18-2016 End: 07-27-2016 *CBC w/Diff - oncology ONLY *CBC w/Diff - oncology ONLY [facility] Work Phone: Start: 10-18-2016 End: 07-27-2016 *CMP Complete Metabolic Panel *CMP Complete Metabolic Panel [facility] Work Phone: Start: 10-18-2016 End: 07-27-2016 [id number] (AFP) tumor marker *AFPT - Alpha-Fetoprotein -Serum [facility] Work Phone: Start: 10-18-2016 End: 07-27-2016 Ferritin *Ferritin [facility] Work Phone: Start: 10-18-2016 End: 07-27-2016 Iron *Iron [facility] Work Phone: Start: 10-18-2016 End: 07-27-2016 Iron binding capacity [Mass/volume] in Serum or Plasma *TIBC [facility] Work Phone: Start: 07-27-2016 End: 01-27-2016 *CBC with Differential *CBC with Differential [facility] Work Phone: Start: 07-27-2016 End: 07-27-2016 *CMP Complete Metabolic Panel *CMP Complete Metabolic Panel [facility] Work Phone: Start: 07-27-2016 End: 07-27-2016 Ferritin *Ferritin [facility] Work Phone: Start: 07-27-2016 End: 07-27-2016 Iron *Iron [facility] Work Phone: Start: 07-27-2016 End: 07-27-2016 Iron binding capacity [Mass/volume] in Serum or Plasma *TIBC [facility] Work Phone: Start: 07-27-2016 End: 07-27-2016 Lactate dehydrogenase (LDH) *LDH -LDH (Lactate Dehydrogenase) [facility] Work Phone: Start: 07-27-2016 End: 07-27-2016 Urate *Uric Acid Blood [facility] Work Phone: Start: 07-07-2016 End: 07-07-2016 Electrocardiogram, complete EKG (In office) [facility] Work Phone: Start: 07-07-2016 End: 07-07-2016 Follow Up Appt 4 months Follow Up Appt 4 months [facility] Work Phone: Start: 07-07-2016 End: 07-07-2016 MMM MMM [facility] Work Phone: Start: 06-04-2016 End: 06-04-2016 REGISTERED NURSE BEHAVIORAL HEALTH REGISTERED NURSE BEHAVIORAL HEALTH [facility] Work Phone: Start: 06-04-2016 End: 06-04-2016 Echocardiography Echocardiogram (complete) [facility] Work Phone: Start: 06-04-2016 End: 06-04-2016 Follow Up Appt 6 weeks Follow Up Appt 6 weeks [facility] Work Phone: Start: 04-27-2016 End: 01-27-2016 *CBC with Differential *CBC with Differential [facility] Work Phone: Start: 04-27-2016 End: 04-27-2016 *CMP Complete Metabolic Panel *CMP Complete Metabolic Panel [facility] Work Phone: Start: 04-27-2016 End: 04-27-2016 Ferritin *Ferritin [facility] Work Phone: Start: 04-27-2016 End: 04-27-2016 Iron *Iron [facility] Work Phone: Start: 04-27-2016 End: 04-27-2016 Iron binding capacity [Mass/volume] in Serum or Plasma *TIBC [facility] Work Phone: Start: 04-27-2016 End: 04-27-2016 Lactate dehydrogenase (LDH) *LDH -LDH (Lactate Dehydrogenase) [facility] Work Phone: Start: 04-27-2016 End: 04-27-2016 Urate *Uric Acid Blood [facility] Work Phone: Start: 01-23-2016 End: 01-26-2016 *CBC with Differential *CBC with Differential [facility] Work Phone: Start: 01-23-2016 End: 01-26-2016 *CMP Complete Metabolic Panel *CMP Complete Metabolic Panel [facility] Work Phone: Start: 01-23-2016 End: 01-26-2016 Ferritin *Ferritin [facility] Work Phone: Start: 01-23-2016 End: 01-26-2016 Lactate dehydrogenase (LDH) *LDH -LDH (Lactate Dehydrogenase) [facility] Work Phone: Start: 01-23-2016 End: 01-26-2016 Urate *Uric Acid Blood [facility] Work Phone: Start: 11-25-2015 End: 11-26-2015 *CMP Complete Metabolic Panel *CMP Complete Metabolic Panel [facility] Work Phone: Start: 11-25-2015 End: 11-26-2015 Lactate dehydrogenase (LDH) *LDH -LDH (Lactate Dehydrogenase) [facility] Work Phone: Start: 11-25-2015 End: 11-26-2015 Urate *Uric Acid Blood [facility] Work Phone: Start: 10-15-2015 End: 04-16-2015 *CBC with Differential *CBC with Differential [facility] Work Phone: Start: 10-15-2015 End: 10-28-2015 *CMP Complete Metabolic Panel *CMP Complete Metabolic Panel [facility] Work Phone: Start: 10-15-2015 End: 10-28-2015 Ferritin *Ferritin [facility] Work Phone: Start: 10-15-2015 End: 10-28-2015 Lactate dehydrogenase (LDH) *LDH -LDH (Lactate Dehydrogenase) [facility] Work Phone: Start: 10-15-2015 End: 10-28-2015 Urate *Uric Acid Blood [facility] Work Phone: Start: 07-15-2015 End: 04-16-2015 *CBC with Differential *CBC with Differential [facility] Work Phone: Start: 07-15-2015 End: 07-15-2015 *CMP Complete Metabolic Panel *CMP Complete Metabolic Panel [facility] Work Phone: Start: 07-15-2015 End: 07-15-2015 Ferritin *Ferritin [facility] Work Phone: Start: 07-15-2015 End: 07-15-2015 Lactate dehydrogenase (LDH) *LDH -LDH (Lactate Dehydrogenase) [facility] Work Phone: Start: 07-15-2015 End: 07-15-2015 Urate *Uric Acid Blood [facility] Work Phone: Start: 04-16-2015 End: 01-01-2015 *CBC with Differential *CBC with Differential [facility] Work Phone: Start: 04-16-2015 End: 04-16-2015 *CMP Complete Metabolic Panel *CMP Complete Metabolic Panel [facility] Work Phone: Start: 04-16-2015 End: 04-16-2015 Lactate dehydrogenase (LDH) *LDH -LDH (Lactate Dehydrogenase) [facility] Work Phone: Start: 04-16-2015 End: 04-16-2015 Urate *Uric Acid Blood [facility] Work Phone: Start: 01-15-2015 End: 01-01-2015 *CBC with Differential *CBC with Differential [facility] Work Phone: Start: 01-15-2015 End: 01-15-2015 *CMP Complete Metabolic Panel *CMP Complete Metabolic Panel [facility] Work Phone: Start: 01-15-2015 End: 01-15-2015 Lactate dehydrogenase (LDH) *LDH -LDH (Lactate Dehydrogenase) [facility] Work Phone: Start: 01-15-2015 End: 01-15-2015 Urate *Uric Acid Blood [facility] Work Phone: Start: 10-16-2014 End: 10-10-2014 *CBC with Differential *CBC with Differential [facility] Work Phone: Start: 10-16-2014 End: 10-16-2014 *CMP Complete Metabolic Panel *CMP Complete Metabolic Panel [facility] Work Phone: Start: 10-16-2014 End: 10-16-2014 Ferritin *Ferritin [facility] Work Phone: Start: 10-16-2014 End: 10-16-2014 Lactate dehydrogenase (LDH) *LDH -LDH (Lactate Dehydrogenase) [facility] Work Phone: Start: 10-16-2014 End: 10-16-2014 Urate *Uric Acid Blood [facility] Work Phone: Start: 07-17-2014 End: 10-10-2014 *CBC with Differential *CBC with Differential [facility] Work Phone: Start: 07-17-2014 End: 10-10-2014 Ferritin *Ferritin [facility] Work Phone: CBC W Auto Different ial panel - Blood [facility] Work Phone: CBC W Auto Different ial panel - Blood [facility] CBC W Auto Different ial panel - Blood [facility] Comprehensive metabo lic 2000 panel - Serum or Plasma [facility] Ferritin [Mass/volum e] in Serum or Plasma [facility] Work Phone: Ferritin [Mass/volum e] in Serum or Plasma [facility] Ferritin [Mass/volum e] in Serum or Plasma [facility] Lactate dehydrogenas e measurement [facility] Patient Education [facility] Work Phone: Patient referral [facility] Work Phone: [place] Abdomen limited [facility] Immunizations Immunization Date Immunization Notes Care Provider Fa cili 05-16-[address] Ada Alexander Work Phone: [facility] 03-27-[address] Ada Alexander Work Phone: [facility] Payers Date Payer Category Payer Medicare 2018 Unknown 2017 Medicare [id number] 2017 Unknown [id number] 2016 Self-pay [id number] 2016 Unknown [id number] 1950 Unknown [id number] 2.16.84 [id number] 1950 Unknown [id number] 2.16.8 40.1.817346.3.579.2.1243 1950 Unknown [id number] 2.16.8 40.1.859430.3.579.2.1243 1950 Unknown [id number] 2.16.8 40.1.430976.3.579.2.1243 1950 Unknown [id number] 2.16.8 40.1.366391.3.579.2.1243 1950 Unknown [id number] 2.16.8 40.1.361724.3.579.2.1243 1950 Unknown [id number] 2.16.8 40.1.175806.3.579.2.1243 1950 Unknown [id number] 2.16.8 40.1.193746.3.579.2.1243 Unknown [id number] 2.16.8 40.1.058851.3.579.2.462 Unknown [id number] 2.16.8 40.1.714329.3.579.2.462 Unknown [id number] 2.16.8 40.1.995906.3.579.2.462 Unknown [id number] 2.16.8 40.1.423666.3.579.2.462 Unknown [id number] 2.16.8 40.1.235106.3.579.2.462 Unknown [id number] 2.16.8 40.1.711420.3.579.2.462 Unknown [id number] 2.16.8 40.1.685917.3.579.2.462 Unknown [id number] 2.16.8 40.1.382177.3.579.2.462 Unknown [id number] 2.16.8 40.1.603673.3.579.2.462 Unknown [id number] 2.16.8 40.1.954104.3.579.2.462 Unknown [id number] 2.16.8 40.1.515867.3.579.2.462 Unknown [id number] 2.16.8 40.1.623634.3.579.2.462 Unknown [id number] 2.16.8 40.1.351038.3.579.2.462 Unknown [id number] 2.16.8 40.1.095593.3.579.2.462 Unknown [id number] 2.16.8 40.1.683153.3.579.2.462 Unknown [id number] 2.16.8 40.1.943614.3.579.2.462 Social History Date Type Detail Facility [facility] Start: 05-26-2021 End: 09-01-2023 Tobacco smoking consumption unknown [facility] Start: 1950 Sex Assigned At Male [facility] Start: 09-01-2023 Tobacco smoking status NHIS Never smoked tobacco (finding) [facility] Medical Equipment Procedure Code Equipment Code Equipment Origin al Text Equipment Identifier Dates Primary uncemented total hip replacement TRIDENT X3 0 POLY INSERT FDA Start: 06-14-2018 Primary uncemented total hip replacement accolade [address] FDA Start: 06-14-2018 Primary uncemented total hip replacement biolox delta ceramic fem head FDA Start: 06-14-2018 Primary uncemented total hip replacement trident tritanium acetab. leonie FDA Start: 06-14-2018 Primary uncemented total hip replacement TRIDENT X3 0 POLY INSERT FDA Start: 06-14-2018 Primary uncemented total hip replacement accolade [address] FDA Start: 06-14-2018 Primary uncemented total hip replacement biolox delta ceramic fem head FDA Start: 06-14-2018 Primary uncemented total hip replacement trident tritanium acetab. leonie FDA Start: 06-14-2018 Primary uncemented total hip replacement TRIDENT X3 0 POLY INSERT FDA Start: 06-14-2018 Primary uncemented total hip replacement accolade [address] FDA Start: 06-14-2018 Primary uncemented total hip replacement biolox delta ceramic fem head FDA Start: 06-14-2018 Primary uncemented total hip replacement trident tritanium acetab. leonie FDA Start: 06-14-2018 Primary uncemented total hip replacement TRIDENT X3 0 POLY INSERT FDA Start: 06-14-2018 Primary uncemented total hip replacement accolade [address] FDA Start: 06-14-2018 Primary uncemented total hip replacement biolox delta ceramic fem head FDA Start: 06-14-2018 Primary uncemented total hip replacement trident tritanium acetab. leonie FDA Start: 06-14-2018 Primary uncemented total hip replacement TRIDENT X3 0 POLY INSERT FDA Start: 06-14-2018 Primary uncemented total hip replacement accolade [address] FDA Start: 06-14-2018 Primary uncemented total hip replacement biolox delta ceramic fem head FDA Start: 06-14-2018 Primary uncemented total hip replacement trident tritanium acetab. leonie FDA Start: 06-14-2018 Primary uncemented total hip replacement TRIDENT X3 0 POLY INSERT FDA Start: 06-14-2018 Primary uncemented total hip replacement accolade [address] FDA Start: 06-14-2018 Primary uncemented total hip replacement biolox delta ceramic fem head FDA Start: 06-14-2018 Primary uncemented total hip replacement trident tritanium acetab. leonie FDA Start: 06-14-2018 Primary uncemented total hip replacement TRIDENT X3 0 POLY INSERT FDA Start: 06-14-2018 Primary uncemented total hip replacement accolade [address] FDA Start: 06-14-2018 Primary uncemented total hip replacement biolox delta ceramic fem head FDA Start: 06-14-2018 Primary uncemented total hip replacement trident tritanium acetab. leonie FDA Start: 06-14-2018 Primary uncemented total hip replacement TRIDENT X3 0 POLY INSERT FDA Start: 06-14-2018 Primary uncemented total hip replacement accolade [address] FDA Start: 06-14-2018 Primary uncemented total hip replacement biolox delta ceramic fem head FDA Start: 06-14-2018 Primary uncemented total hip replacement trident tritanium acetab. leonie FDA Start: 06-14-2018 Primary uncemented total hip replacement TRIDENT X3 0 POLY INSERT FDA Start: 06-14-2018 Primary uncemented total hip replacement accolade [address] FDA Start: 06-14-2018 Primary uncemented total hip replacement biolox delta ceramic fem head FDA Start: 06-14-2018 Primary uncemented total hip replacement trident tritanium acetab. leonie FDA Start: 06-14-2018 Primary uncemented total hip replacement TRIDENT X3 0 POLY INSERT FDA Start: 06-14-2018 Primary uncemented total hip replacement accolade [address] FDA Start: 06-14-2018 Primary uncemented total hip replacement biolox delta ceramic fem head FDA Start: 06-14-2018 Primary uncemented total hip replacement trident tritanium acetab. leonie FDA Start: 06-14-2018 Mental Status Date Assessment Result Facility 05-30-2024 Cognitive function [facility] Work Phone: 08-01-2023 Cognitive function Awake;Alert;A ppropriate;Follo ws Commands [facility] Work Phone: 06-01-2023 Cognitive function Awake;Alert;A ppropriate;Follo ws Commands [facility] Work Phone: 01-18-2023 Cognitive function Level Of Cons ciousness Awake;Alert;Appropriate [facility] Work Phone: 12-09-2021 Cognitive function Level Of Cons ciousness Awake;Alert;Appropriate;Follo ws Commands [facility] Work Phone: 06-02-2021 Cognitive function Voice/Name [facility] Work Phone: Clinical Notes 02-14-2023 to 11-27-2024 Note Date & Type Note Facility 11-27-2024 Progress note [facility] 08-01-2023 Discharge summary Note Date/Time August 01, 2023 5:50pm [facility] Medical Records Department [address] [place] [address] Emergency Department Summary 08/01/23 MR#: [id number] Acct: [id number] Name: EDWIGE JOHNSON Rep #:[id number] : 1950 72 From: Jose Luis Bell MD PCP: Dr. Ada Alexander, DO Status:REG ER Location: ED HPI History of Present Illness Chief Complaint: Chest Other Informant: patient and spouse/S.O. Narrative Narrative: Patient presents with left-sided rib pain after a fall yesterday morning. This is a repeat dictation due to a loss dictation because of dragon. There arefeatures and details that may have been placed in the first dictation that are missed in the second. Patient slipped about 1:30 in the morning on Tuesday. He was walking downstairs to urinate at night which she commonly has to do. This was a mechanical fall. He landed on his left ribs and elbow and did not hit his head. He is on Eliquis. He states the only thing that really hurts is his left posterior ribs. He states he is not short of breath. He can even take a deep breath most of the time. He just has sharp pain if he moves or twists a certain way. He is eating and drinking well. He is urinating normally. No blood in the urine. Not lightheaded or dizzy. [facility] Medical History Acute otitis externa of left ear Acute pharyngitis, unspecified Alcohol use Arthritis Back pain BiPAP (biphasic positive airway pressure) dependence Cirrhosis Depression Diverticulitis Essential (primary) hypertension Hemochromatosis Hyperlipidemia Hypertension Leg cramps Meniere disease Non-smoker Obesity MAURI (obstructive sleep apnea) Paroxysmal atrial flutter Personal history of colonic polyps Vertigo Wears dentures Wears hearing aid Wears partial dentures Home Medications dekarmks-oqy-squsl acid 0.4 mg-lycopene 300 mcg-lutein 250 mcg tablet 1 ea PO DAILY SUPPLEMENT 05/22/14 [History Last Taken 03/09/23] losartan 100 mg tablet 100 mg PO DAILY #90 tabs 01/29/20 [Rx Last Taken 03/09/23] Cholecalciferol (Vitamin D3) [Vitamin D3] 1 cap PO DAILY 04/30/20 [History Last Taken 03/09/23] hydrochlorothiazide 25 mg tablet 25 mg PO DAILY 04/30/20 [History Last Taken Unknown] sertraline 100 mg tablet 100 mg PO DAILY 03/19/21 [History Last Taken 03/09/23] polyethylene glycol 400 0.25 % eye gel drops (Blink Gel Tears) 1 drp ophthalmic (eye) .QDAY PRN dry eye(s) 12/09/21 [History Last Taken 03/09/23] meloxicam 15 mg tablet 15 mg PO DAILY 01/20/23 [History Last Taken 03/09/23] metoprolol tartrate 50 mg tablet 50 mg PO BID #180 tabs 02/02/23 [Rx Last Taken 03/09/23] apixaban 5 mg tablet (Eliquis) 5 mg PO BID #180 tabs 03/01/23 [Rx Last Taken 03/09/23] oxycodone-acetaminophen 5 mg-325 mg tablet 1 tab PO Q6H PRN PRN Pain 3 days #12 TABLETS 08/01/23 [Rx Last Taken Unknown] Allergy/AdvReac Type Severity Reaction Status Date / Time Penicillins [PCN] Allergy Severe Hives Verified 06/01/23 14:42 nabumetone [From Relafen] Allergy Unknown Verified 06/01/23 14:42 ezetimibe [From Zetia] AdvReac Intermediate Pain in Verified 06/01/23 14:42 joints Mwjyxem-LXM-PxB Reductase AdvReac Unknown Verified 06/01/23 14:42 Inhibitor [Bgngtbl-Hdo-Pjk Reductase Inhibitor] Family History Mother COPD (chronic obstructive pulmonary disease) Father Heart disease Surgical History History of appendectomy History of back surgery History of brain shunt History of cardioversion (06/11/19) History of colon resection History of eye surgery History of hernia repair History of hip replacement, total History of liver biopsy History of vasectomy Hx of left cataract extraction Hx of right cataract extraction Social History Smoking Status: Never smoker alcohol intake: never ROS ROS ED Constitutional Constitutional ED: Denies chills or fever(s) Eyes Eyes: Denies change in vision ENT ENT ED: Denies rhinorrhea Cardiovascular Cardiovascular: Reports chest pain; Denies palpitations or racing heartbeat Respiratory/Chest Respiratory/Chest: Denies cough or dyspnea Gastrointestinal Gastrointestinal: Denies abdominal pain, melena, nausea or vomiting Genitourinary Genitourinary ED: Denies hematuria Musculoskeletal Musculoskeletal: Reports other Details: See history of present illness. Integumentary Reports Abrasions Neurologic Neurologic: Denies headache(s), paresthesias or weakness Hematologic/Lymphatic Hematologic/Lymphatic: Reports easy bleeding and easy bruising Allergic/Immunologic Allergic/Immunologic ED: Denies urticaria EXAM Physical Exam Narrative Exam Narrative: CONSTITUTIONAL: Patient is nontoxic in appearance. The patient looks comfortable. Work of breathing looks normal. HEENT: No notable trauma. Mucous membranes moist. EYES: No conjunctival injection. No proptosis. NECK:No JVD. No stridor. CARDIOVASCULAR: Regular rate. Regular rhythm. No notable murmur. No JVD. Tones are not muffled and peripheral pulses are normal. RESPIRATORY: There is a small superficial skin abrasion on the left posterior ribs. There is tenderness in this area. But I do not feel a step-off. There is no crepitance. No subcu air. But this area is where he has tenderness. If he moves or twists it hurts. GASTROINTESTINAL: Not distended. Bowel sounds are normal. No tenderness. No guarding. No rebound. No palpable mass. No bruit is heard. Overall very benign abdomen. GENITOURINARY: No tenderness over the bladder. No CVA tenderness. MUSCULOSKELETAL: Slight contusion to posterior elbow but there is no pain with range of motion. NEUROLOGICAL: Patient is alert and appropriate. No focal deficit noted. SKIN: Very slight abrasions and contusions. PSYCHIATRIC: Patient is calm. Mood is appropriate. Const Vital Signs: 08/01/23 13:32 08/01/23 17:42 08/01/23 17:45 Temperature 96.8 F L Temperature Source Temporal Pulse Rate 52 L 85 Respiratory Rate 16 14 Respiratory Effort Normal Non-Labored Blood Pressure 180/95 H 176/85 H Blood Pressure Mean 123 115 Pulse Ox 100 96 Oxygen Delivery Method Room Air MDM MDM MDM Narrative Medical decision making narrative: My independent interpretation of the patient's 5 view x-ray of the ribs do show fractures and final reading is nondisplaced fractures of left ninth 10th and 11th ribs. But I also note there is no notable effusion or haziness. No sign of pulmonary contusion or bleeding. We discussed that with the patient on Eliquis We would often consider CT scan. But this is over a day and a half and there is no clinical indication of significant bleeding. He is not pale or lightheaded or dizzy. There is no effusion or pulmonary contusion noted. His abdomen is completely benign. I do not think we need to CT scan now. We will give him meds for pain. Will use incentive spirometer. I explained duration timing and expected course. We discussed returning with worsening painand he dyspnea any lightheadedness significant bruising, blood in stool urine problems eating or abdominal pain. Radiography Diagnostic Testing: Clinical Impression(s) from Imaging Studies Ribs w/Chest X-Ray 08/01/23 13:52 IMPRESSION: RIBS: Nondisplaced fractures of the left ninth 10th and 11th ribs. Stable scarring as described. CHEST: Normal x-ray examination of the chest. Electronically Signed: Devan Ny MD at 14:14 EST , Discharge Plan Triage Chief Complaint: Chest Other ED Provider: Jose Luis Bell Dx/Rx/DC Orders Clinical Impression: Medication induced coagulopathy, Left rib fracture, Fall at home Instructions: ED Rib Fracture Prescriptions: New oxycodone-acetaminophen [oxycodone-acetaminophen] 5-325 mg tablet 1 tab PO Q6H PRN PRN (Reason: Pain) 3 Days Qty: 12 0RF No Action sertraline 100 mg tablet 100 mg PO DAILY losartan 100 mg tablet 100 mg PO DAILY Qty: 90 3RF Blink Gel Tears 0.25 % drops,gel 1 drp ophthalmic (eye) .QDAY PRN (Reason: dry eye(s)) meloxicam 15 mg tablet 15 mg PO DAILY pijzrccy-cha-ST-lycopen-lutein 1 EACH tablet 1 ea PO DAILY Patient Comments: suppliment hydrochlorothiazide 25 MG tablet 25 mg PO DAILY Cholecalciferol (Vitamin D3) [Vitamin D3] 5,000 UNIT capsule 1 cap PO DAILY metoprolol tartrate 50 mg tablet 50 mg PO BID Qty: 180 3RF Eliquis 5 mg tablet 5 mg PO BID Qty: 180 4RF Primary Care Provider: Ada Alexander Referrals: Ada Alexander DO [Primary Care Provider] - 1-2 Weeks Disposition Disposition: Home, Self Care What to do if you have Problems For any increased pain, shortness of breath, bleeding, nausea or vomiting, chestpain, or any unexpected problems, contact your Primary Care Provider. Call [facility] ([phone]) or report to the closest Emergency Room. Call 911 if necessary. 08/01/23 [id number] <Electronically signed by Jose Luis Bell MD> Cosigner Signature (if applicable): CC: Dr. Ada Alexander, DO ~ Signed [facility] Work Phone: 1(845) 484-542508-21-2023 History and physical note Author Faustino Chin [facility] February 14, 2023 3:35pm Note Date/Time February 13, 2023 8: 52am [facility] Medical Records Department [address] [place] [address] History & Physical Exam 02/13/23 0846 MR#: [id number] Acct: [id number] Name: EDWIGE JOHNSON Rep #:[id number] : 1950 72 From: Faustino Chin MD PCP: Dr. Ada Alexander DO Status:[facility] [place] Location: [facility] History and Physical Date of Admission: 03/09/23 Edwige Johnson is a 72 year-old gentleman that presents here today for cardioversion. He has a history of atrial flutter with a cardioversion in 2017 and 2019. He also has a history of hypertension and hyperlipidemia. He also does have a history of hemochromatosis and does follow with hematology. Pt was in the ER on 01/18/2023. He notes that in the morning he woke up and just did not feel right. He felt like his balance was a little off. His BP waselevated, HR was elevated. He did go to the fire department, they had recommended he come to the ER to be seen. He notes that over the last few weekshe has been fatigued. He does not have any chest pain/heaviness. He does not have any worsening SOB. He does not feel his aflutter. He does not have any lightheadedness/dizziness. While in the ER he was started on Eliquis for his atrial flutter, he was started on Eliquis. He was also started on metoprolol at 50 mg BID. 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 Is patient in pain?: No Allergies Penicillins [PCN] Allergy (Severe, Verified 01/20/23 10:29) Hives nabumetone [From Relafen] Allergy (Verified 01/20/23 10:29) Unknown ezetimibe [From Zetia] Adverse Reaction (Intermediate, Verified 01/20/23 10:29) Pain in joints Bspbvyq-RPC-EsZ Reductase Inhibitor [Mwtzcpr-Art-Hrx Reductase Inhibitor] Adverse Reaction (Verified 01/20/23 10:29) Unknown Medications See EMR [facility] Medical History Acute otitis externa of left ear Acute pharyngitis, unspecified Alcohol use Arthritis Back pain BiPAP (biphasic positive airway pressure) dependence Cirrhosis Depression Diverticulitis Essential (primary) hypertension Hemochromatosis Hyperlipidemia Hypertension Leg cramps Meniere disease Non-smoker Obesity MAURI (obstructive sleep apnea) Paroxysmal atrial flutter Personal history of colonic polyps Vertigo Wears dentures Wears hearing aid Wears partial dentures Surgical History History of appendectomy History of back surgery History of brain shunt History of cardioversion (06/11/19) History of colon resection History of eye surgery History of hernia repair History of hip replacement, total History of liver biopsy History of vasectomy Hx of left cataract extraction Hx of right cataract extraction Family History Mother COPD (chronic obstructive pulmonary disease)Father Heart disease Social History Smoking Status: Never smoker alcohol intake: never ROS Const Const: Positive for fatigue; Negative for weakness, headache(s), frequent falls, difficulty sleeping or excessive sweating Eyes Eyes: Negative for loss of peripheral vision, transient loss of vision, blurry vision, double vision or tunnel vision ENT ENT: Negative for headache(s), dizziness, Nosebleed/epistaxis or balance problems Cardio Chest Pain: No Palpitations: No Edema: None Muscle aches with walking: None Resp Respiratory: Negative for SOB with activity, SOB at rest, SOB orthopnea\SOB lying down, Cough or paroxysmal nocturnal dyspnea GI GI: Negative nausea, vomiting, heartburn or black,tarry stools : Negative for hematuria Musc Musc: Negative for muscle aches/ myalgia, muscle weakness, joint pain or balanceproblems Skin Skin: Negative non-healing lesions, rash or unusual bruising Neuro Neuro: Negative for dizziness, lightheadedness, near syncope, syncope, orthostatic symptoms, frequent falls, headache(s), weakness, confusion, memory loss, blurry vision, double vision, vertigo or lack of coordination Dwight Hematologic/Lymphatic: Negative for easy bleeding or easy bruising Endo Endo: Positive for fatigue; Negative for excessive sweating, flushing or increased thirst/drinking Psych Psych: Negative for anxiety or depression Allergy Allergy/Immunology: Negative for hives and Negative for rash Cardiology Exam Const Appearance: cooperative, healthy appearing, comfortable, no acute distress and well developed Orientation: alert, awake and oriented x3 Head Head: normal to inspection Ears: hearing grossly normal bilaterally Nose: external nose normal Face and Sinus: face symmetric Mouth: oral mucosae normal, lip normal and moist mucous membranes Eyes General: appearance normal, both eyes and all related structures Eyelids: eyelids normal Conjunctivae: conjunctivae normal Pupils: PERRL EOM: EOM intact bilaterally Neck Neck: normal visual inspection and trachea midline; Negative no JVD Carotids: Negative bruit Chest Chest inspection: normal inspection of the chest Auscultation: Bilateral: Clear to Auscultation Cardio Palpation: normal PMI Rate: regular rate Rhythm: irregularly irregular Heart sounds: S1 normal and S2 normal; Negative rub, gallop or murmur GI GI: soft, no hepatosplenomegaly and bowel sounds present Neuro General: patient alert, patient awake, patient oriented x3 and CN's II-XI intactbilaterally Extremities Pulses: Normal: Right Posterior Tibial Pulse, Left Posterior Tibial Pulse, RightRadial Pulse and Left Radial Pulse Lower Extremity Edema: None: Bilateral Psych Psychological: normal affect Supplemental Info Echocardiogram from 01/28/2023: Interpretation Summary Normal LV size. Left ventricular systolic function is normal. The estimated ejection fraction is 55 %. Pulmonary artery systolic pressure is 30 mmHg. ECHOCARDIOGRAM 06/05/2019 Interpretation Summary Normal LV size. Left ventricular systolic function is normal. The estimated ejection fraction is 60 %. Unable to assess diastolic dysfunction due to arrhythmia. Bubble contrast study negative for right to left interatrial shunt. Assessment and Plan Assessment and Plan (1) Paroxysmal atrial flutter: Status: Chronic Plan: Patient has returned to atrial flutter. Currently he is not symptomatic as his heart rate is controlled. He will continue with his metoprolol. He also was started on Eliquis. He will proceed with cardioversion. If he has any further recurrence can discuss an EP referral for possible ablation. (2) Essential (primary) hypertension: Status: Chronic Plan: Blood pressure is well controlled on current medications, we do not recommend any changes at this time. (3) Hyperlipidemia: Status: Chronic Plan: Laboratory Tests 11/13/20 08:58 Cholesterol 217 H LDL Cholesterol 137 H HDL Cholesterol 46 Pt is not on anything. He is intolerant to medications. Will monitor with diet. (4) Fatigue: Status: Acute Plan: It is believed that his fatigue is related to his atrial flutter. To assess LV size and atrium size, underwent an echocardiogram 01/28/2023 that showed ejection fraction 55% and normal left and right atrium. 02/14/23 1535 <Electronically signed by Faustino Chin MD> Cosigner Signature (if applicable): 02/13/23 2407 <Electronically signed by Brandan CANTOR> CC: DEVAUGHN Ma; Dr. Faustino Chin MD; Dr. Ada Alexander, DO~ Signed [facility] Work Phone: Evaluation note* Diagnosis Onset Date Resolution Status Hemochromatosis chronic Hemochromatosis chronic [facility] Work Phone: Evaluation note* Diagnosis Onset Date Resolution Status Acute otitis externa of left ear acute Acute pharyngitis, unspecified acute Hemochromatosis chronic Hemochromatosis chronic Fatigue acute Essential (primary) hypertension chronic Hyperlipidemia chronic Paroxysmal atrial flutter [facility] Work Phone: Evaluation note* Diagnosis Onset Date Resolution Status Hemochromatosis chronic Hemochromatosis chronic Fatigue acute Essential (primary) hypertension chronic Hyperlipidemia chronic Paroxysmal atrial flutter [facility] Work Phone: Evaluation note* Diagnosis Onset Date Resolution Status Hemochromatosis chronic Hemochromatosis chronic Fatigue acute Essential (primary) hypertension chronic Hyperlipidemia chronic Paroxysmal atrial flutter [facility] Essential (primary) hypertension chronic Hyperlipidemia chronic Paroxysmal atrial flutter [facility] Work Phone: Evaluation note* Diagnosis Onset Date Resolution Status Essential (primary) hypertension chronic Hyperlipidemia chronic Paroxysmal atrial flutter [facility] Hemochromatosis chronic Hemochromatosis [facility] Work Phone: Evaluation note* Diagnosis Onset Date Resolution Status Hemochromatosis chronic Hemochromatosis chronic Essential (primary) hypertension chronic Hyperlipidemia 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 Paroxysmal atrial flutter [facility] Work Phone: Evaluation note* Diagnosis Onset Date Resolution Status Essential (primary) hypertension chronic Hyperlipidemia chronic assisted (current) use of anticoagulants chronic Paroxysmal atrial flutter [facility] Work Phone: Evaluation note* Diagnosis Onset Date Resolution Status Admit Date Hemochromatosis chronic November 27, 2024 1:35pm Hemochromatosis chronic November 27, 2024 1:45pm [facility] Work [facility] Work Phone: Hospital Discharge instructionsAmbulatory Orders* Iron Facility: [facility], Location: Laboratory * Ferritin Facility: [facility], Location: Laboratory * Ferritin Location: Laboratory [facility] Work Phone: Progress note Author Gabriela Crews [facility] Note Date/Time November 27, 2024 2:59p m [facility] [address] [place] [address] OFFICE VISIT Date of Service: 11/27/24 1417 MR#: [id number] Acct: [id number] Name: EDWIGE JOHNSON Rep #: [id number] : 1950 From: Gabriela Álvarez ch [address] PATCHER-C Age/Sex: 74/M Location: [facility] Status: Signed HPI Subjective Date of Service 11/27/24 Chief Complaint phlebotomy History of Present Illness 74 y.o.man was diagnosed with Hemochromatosis, 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 He has been having therapeuticphlebotomies for Ferritin >150. Interval History The patient is presenting to clinic for a routine 6 month follow up. Last phlebotomy 05/30/24. Fatigue mild. Specifically denies sweats, joint pain, abd pain, pruritus, changes in his bowelhabits, and swelling/pain of his extremities. [facility] Medical History Acute otitis externa of left ear Acute pharyngitis, unspecified Personal history of colonic polyps Wears hearing aid Wears partial dentures Wears dentures Depression Alcohol use Back pain Meniere disease Non-smoker BiPAP (biphasic positive airway pressure) dependence Leg cramps Hypertension Obesity Paroxysmal atrial flutter Essential (primary) hypertension MAURI (obstructive sleep apnea) Vertigo Cirrhosis Hyperlipidemia Diverticulitis Arthritis Hemochromatosis Surgical History History of liver biopsy History of brain shunt Hx of right cataract extraction Hx of left cataract extraction History of cardioversion (06/11/19) History of hip replacement, total History of eye surgery History of vasectomy History of hernia repair History of colon resection History of back surgery History of appendectomy Family History Mother COPD (chronic obstructive pulmonary disease) Father Heart disease Social History Smoking Status: Never smoker alcohol intake: never ROS ROS Narrative Negative except as documented in the interval HPI Intake Vital Signs 05/30/24 14:08 11/27/24 14:19 Height 6 ft 2 in 6 ft 2 in Weight: 277 lb 4 oz BMI 35.6 BP 116/77 Blood Pressure Location Lt brachial Position Sitting Respiration 18 Pulse 63 Pulse Source Monitor Temp 98.2 F Temperature Source Temporal Artery Pulse Oximetry (%) 93 Oxygen Delivery Method room air Intake Is patient in pain?: No Allergies Penicillins (PCN) Allergy (Severe, Verified 11/27/24 14:22) Hives nabumetone (From Relafen) Allergy (Verified 11/27/24 14:22) Unknown ezetimibe (From Zetia) Adverse Reaction (Intermediate, Verified 11/27/24 14:22) Pain in joints Jubaiky-EGE-WjP Reductase Inhibitor (Fzwuqvz-Vfp-Tfq Reductase Inhibitor) Adverse Reaction (Verified 11/27/24 14:22) Unknown Medications ?Medication ?Instructions ?Recorded ?Confirmed ?Type njmkyzjp-via-maziy acid 0.4 1 ea PO DAILY SUPPLEMENT 1 07/22/13 11/27/24 History mg-lycopene 300 mcg-lutein 250 mcg tablet losartan 100 mg tablet 100 mg PO DAILY #90 tabs 10/1411/27/24 Rx Cholecalciferol (Vitamin D3) 1 cap PO DAILY 04/30/20 0 11/27/24 History [Vitamin D3] hydrochlorothiazide 25 mg tablet 25 mg PO DAILY 11/27/24 History sertraline 100 mg tablet 100 mg PO DAILY 03/19/2109/18 History meloxicam 15 mg tablet 15 mg PO DAILY 01/20/2309/18 History apixaban 5 mg tablet 5 mg PO BID #180 tabs 11/27/24 Rx metoprolol tartrate 50 mg tablet 50 mg PO BID #180 tab s 11/06/24 11/27/24 Rx semaglutide 1 mg/dose (4 mg/3 mL) 1 mg subcut QWEEK 11/27/24 History subcutaneous pen injector (Ozempic) Have you fallen in the past year?: Yes (fell down stairs) Laboratory Tests 12/09/21 11/27/24 14:25 13:37 WBC 7.6 Hgb 15.9 16.5 Hct 44.7 MCV 92.5 Plt Count 196 BUN 24 H Creatinine 0.94 Ferritin 153 Total Bilirubin 0.99 AST 38 ALT 38 Alkaline Phosphatase 100 Exam Physical Exam Const alert, oriented x3 and no apparent distress General Appearance: comfortable HEENT normocephalic Neck no lymphadenopathy and supple Resp normal respiratory effort Cardio regular rate, regular rhythm, S1 normal heart sound and S2 normal heart sound GI normal to inspection, nondistended, normoactive bowel sounds Back/Spine thoracic and lumbar spine normal to inspection Extremity normal to inspection Skin no rashes or lesions noted Neuro oriented x3, CN's II-XII intact bilaterally and moves all extremities Psych mental status grossly normal and cooperative Coding Level of Care Code Off vis,est,level 4 Exam Problem Focused Diagnoses Hereditary hemochromatosis E83.110 Hemochromatosis type: hereditary Assessment and Plan Assessment and Plan (1) Hemochromatosis: Status: Chronic Qualifiers: Hemochromatosis type: hereditary Qualified Code(s): E83.110 - Hereditary hemochromatosis Plan: Phlebotomy 500cc today. Request RUQ US May 2025. RTO in 6 mo, CBC/CMP/FERRITIN Orders: Orders CBC W/Diff, Automated 6 Months E83.110 - Hereditary hemochromatosis Comprehensive Metabolic Profil 6 Months E83.110 - Hereditary hemochromatosis Ferritin 6 Months E83.110 - Hereditary hemochromatosis Abdomen Limited 6 Months E83.110 - Hereditary hemochromatosis Clinical Quality Measures Falls Risk Screening/Assistive Devices Have you fallen in the past year?: Yes (fell down stairs) 11/27/24 7038 <Electronically signed by Gabriela cueva NP ROAD PATCHER-C> Date _ Gabriela Crews NP ROAD PATCHER-C Cosigner Signature: Date (if applicable) CC: ~ [facility] Work Phone: Reason for referral (narrative)No reason for referral information availableBlWhittier [facility] Work Phone: Summary Purpose Family History No Family History Records Found Relationship Condition Age at Onset Recorded Date/T lynette mother Chronic obstructive pulmonary disease Unk nown father Cardiac disease Unknown Advance Directives No Advanced Directives Records Found Advance Directive Response Recorded Date/ Time Advance Directives Yes May 11:54am Living Will Yes May 26, 021 4:42pm Power of [employer] [place] Yes May 26, 2021 4:42pm Advance Directive Response Recorded Date/ Time Advance Directives Yes May 11:54am Living Will No January 18, 2023 3:06pm Power of [employer] [place] No January 18 3:06pm Advance Directive Response Recorded Date/ Time Advance Directives on File No 2022 2:24pm Advance Directives No February 2:24pm Living Will No March 08, 2023 2:24pm Power of [employer] [place] No February 2:24pm Advance Directive Response Recorded Date/ Time Advance Directives on File No 2022 1:24pm Advance Directives No February 1:24pm Living Will No March 08, 2023 1:24pm Power of [employer] [place] No February 1:24pm Advance Directive Response Recorded Date/ Time Advance Directives No February 1:24pm Living Will No March 08, 2023 1:24pm Power of [employer] [place] No February 1:24pm Advance Directive Response Recorded Date/ Time Advance Directives No February 1:24pm Living Will No August 01 5:45pm Power of [employer] [place] No August 01, 2023 5:45pm Advance Directive Response Recorded Date/ Time Advance Directives No February 2:24pm Living Will No August 01 6:45pm Power of [employer] [place] No August 01, 2023 6:45pm Advance Directive Response Recorded Date/ Time Living Will No April 27 11:50am Do you have a Healthcare Power of [employer] [place]? No April 27, 2016 11:50am Advance Directives No February 2:24pm Chief Complaint and Reason for Visit Chief Complaint ONC/HEM 6MO LABS PHLEBO? Hereditary hemochromatosis Reason for Visit Hemochromatosis Hemochromatosis Chief Complaint SORE THROAT 6MO LABS PHLEBO ONC/HEM FATIGUE S/P [facility] 01/18/23 AFLUTTER AFIB Amb Documentation Reason for Visit Acute otitis externa of left ear Acute pharyngitis, unspecified Hemochromatosis Hemochromatosis Fatigue Essential (primary) hypertension Hyperlipidemia Paroxysmal atrial flutter Chief Complaint 6MO LABS PHLEBO ONC/HEM FATIGUE S/P [facility] 01/18/23 AFLUTTER AFIB Amb Documentation A FLUTTER A FLUTTER Reason for Visit Hemochromatosis Hemochromatosis Fatigue Essential (primary) hypertension Hyperlipidemia Paroxysmal atrial flutter Chief Complaint 6MO LABS PHLEBO ONC/HEM FATIGUE S/P [facility] 01/18/23 AFLUTTER AFIB Amb Documentation A FLUTTER A FLUTTER 2 m fu Reason for Visit Hemochromatosis Hemochromatosis Fatigue Essential (primary) hypertension Hyperlipidemia Paroxysmal atrial flutter Essential (primary) hypertension Hyperlipidemia Paroxysmal atrial flutter Chief Complaint A FLUTTER 2 m fu ONC/HEM 6MO LABS PHLEBO Hemochromatosis, unspecified Reason for Visit Essential (primary) hypertension Hyperlipidemia Paroxysmal atrial flutter Hemochromatosis Hemochromatosis Chief Complaint 2 m fu ONC/HEM 6MO LABS PHLEBO Hemochromatosis, unspecified Reason for Visit Essential (primary) hypertension Hyperlipidemia Paroxysmal atrial flutter Hemochromatosis Hemochromatosis Chief Complaint ONC/HEM 6MO LABS PHLEBO Hemochromatosis, unspecified chest other Reason for Visit Hemochromatosis Hemochromatosis Chief Complaint ONC/HEM 6MO LABS PHLEBO Hemochromatosis, unspecified chest other Wants moved up, see clinical note Zen CLAY RECURRING INR Reason for Visit Hemochromatosis Hemochromatosis Essential (primary) hypertension Hyperlipidemia assisted (current) use of anticoagulants Paroxysmal atrial flutter Chief Complaint chest other Wants moved up, see clinical note Zen CLAY RECURRING INR NEW RECURRING INR Reason for Visit Essential (primary) hypertension Hyperlipidemia assisted (current) use of anticoagulants Paroxysmal atrial flutter Chief Complaint Admit Date 6MO LABS PHLEBO November 27, 2024 1:35p m ONC/HEM November 27, 2024 1:45p m Reason for Visit Admit Date Hemochromatosis November 27, 2024 1:35p m Hemochromatosis November 27, 2024 1:45p m Additional Source Comments (unrecognized sect ion and content) No Status Records FoundNo Status Records FoundNo Status Records FoundNo Status Records FoundNo Status Records Found INFORMATION SOURCE (unrecogn ized section and content) DATE CREATED AUTHOR 09/15/2018 [facility] DATE CREATED AUTHOR AUTHOR'S ORGANIZ ATION 09/18/2021 [facility] DATE CREATED AUTHOR AUTHOR'S ORGANIZ ATION 01/13/2022 [facility] DATE CREATED AUTHOR AUTHOR'S ORGANIZ ATION 03/24/2024 [facility] DATE CREATED AUTHOR AUTHOR'S ORGANIZ ATION 02/06/2025 [facility] <item><item> Privacy Markings (unrecogniz ed section and content) Section Author: Mariluz Mitchell PROHIBITION ON REDISCLOSURE OF CONFIDENTIAL INFORMATION This notice accompanies a disclosure of information concerning a client made to you with the consent of such client. Section Author: Mariluz Mitchell PROHIBITION ON REDISCLOSURE OF CONFIDENTIAL INFORMATION This notice accompanies a disclosure of information concerning a client made to you with the consent of such client. Goals (unrecognized section and content) Goals may be documented in a n alternate sectionGoals may be documented in an alternate sectionGoals may be documented in an alternate sectionGoals may be documented in an alternate sectionGoals may be documented in an alternate sectionGoals may be documented in an alternate sectionGoals may be documented in an alternate sectionGoals may be documented in an alternate sectionGoals may be documented in an alternate sectionGoals may be documented in an alternate section Care Teams (unrecognized sec tion and content) Team Status: Active Member Role Status Dates Dr. Ada Alexander DO Family Provider Active Dr. Ada Alexander DO Primary Care Provider Active Team Status: Inactive Member Role Status Dates Dr. Ada Alexander DO Primary Care Provider, Referrin g Provider Active Dr. Roque Kang MD Attending Provider Active Team Status: Inactive Member Role Status Dates Dr. Ada Alexander DO Primary Care Provider, Referrin g Provider Active Gloria Rdz PA, PA Attending Provider Active Team Status: Inactive Member Role Status Dates Dr. Ada Alexander DO Primary Care Provider, Referrin g Provider Active Latoya Wadsworth PA, PA Attending Provider Active Team Status: Active Member Role Status Dates Dr. Ada Alexander DO Primary Care Provider Active Dr. Faustino Chin MD Attending Provider Active Team Status: Active Member Role Status Dates Dr. Ada Alexander DO Primary Care Provider Active Brandan Ma ROAD PATCHER, ROAD PATCHER-C Attending Provider Active Team Status: Active Member Role Status Dates Dr. Ada Alexander DO Primary Care Prov ider, Family Provider, Referring Provider Active Gabriela Crews ROAD PATCHER, ROAD PATCHER-C Attending Provider Active Team Status: Inactive Member Role Status Dates Dr. Ada Alexander DO Primary Care Provider Active Dr. Grover Lemons MD Attending Provider, Emergency Provider Active Team Status: Inactive Member Role Status Dates Dr. Ada Alexander DO Primary Care Provider Active Latoya Wadsworth PA, PA Attending Provider, Referr ing Provider Active Team Status: Active Member Role Status Dates Dr. Ada Alexander DO Primary Care Provider Active Dr. Faustino Chin MD Attending Provider, Other Provide r Active Team Status: Inactive Member Role Status Dates Dr. Ada Alexander DO Primary Care Provider Active Dr. Faustino Chin MD Attending Provider, Referring Pro vider Active Team Status: Inactive Member Role Status Dates Dr. Ada Alexander DO Primary Care Prov ider, Attending Provider, Referring Provider Active Team Status: Inactive Member Role Status Dates Dr. Ada Alexander DO Primary Care Provider Active Dr. Roque Kang MD Attending Provider, Referring Pro vider Active Team Status: Inactive Member Role Status Dates Dr. Ada Alexander DO Primary Care Provider Active Dr. Yoshi Sanderson MD Attending Provider, Referr ing Provider Active Team Status: Inactive Member Role Status Dates Dr. Ada Alexander DO Primary Care Provider Active Dr. Jose Luis Bell MD Emergency Provider Active Team Status: Inactive Member Role Status Dates Dr. Ada Alexander DO Primary Care Provider Active Dr. Jose Luis Bell MD Attending Provider, Emergency Provider Active Team Status: Active Member Role Status Dates Dr. Ada Alexander DO Primary Care Provider Active Team Status: Inactive Member Role Status Dates Dr. Ada Alexander DO Primary Care Provider Active Start: November 27, 2024 End: November 27, 2024 Dr. Ada Alexander DO Referring Provider Active Start: November 27, 2024 End: November 27, [address] PATCHER-C Attending Provider Active Start: November 27, 2024 End: November 27, 2024 Team Status: Active Member Role Status Dates Dr. Ada Alexander DO Primary Care Provider Active Start: November 27, 2024 Dr. Ada Alexander DO Family Provider Active St art: November 27, 2024 Dr. Ada Alexander DO Referring Provider Active Start: November 27, 2024 Gabriela Crews NP, ROAD PATCHER-C Attending Provider Active Start: November 27, 2024 FOR RECORDS PERTAINING TO PATIENTS WHO ARE OR HAVE BEEN ENROLLED IN A CHEMICAL DEPENDENCY/SUBSTANCEABUSE PROGRAM, SOME INFORMATION MAY BE OMITTED. This clinical summary was aggregated from multiple sources. Caution should be exercised in using it in the provision of clinical care. This summary normalizes information from multiple sources, and as a consequence, information in this document may materially change the coding, format and clinical context of patient data. In addition, data may be omitted in some cases. CLINICAL DECISIONS SHOULD BE BASED ON THE PRIMARY CLINICAL RECORDS. [employer] provides no warranty or guarantee of the accuracy or completeness of information in this document.
[2025-04-20 20:07] VITALS: BP 128/79; PULSE 66; RESP 16; O2SAT 98
[2025-04-20 20:10] LABS: Mucous, Urine 0 SEEN /hpf (<or=2+)
[2025-04-20 20:12] LABS: Color, Urine Yellow (Yellow); Glucose, Dipstick Normal (Normal); Ketone-Dipstick Negative (Negative); Leukocyte Esterase-Dipstick Negative /ul (Negative); Nitrite-Dipstick Negative (Negative); Occult Blood-Urine 10 /ul (Negative); Protein-Dipstick 15 mg/dl (Negative); Specific Gravity, Urine 1.010 (1.002-1.030); Urine Bilirubin Dipstick Negative (Negative)
[2025-04-20 20:47] LABS: Red Blood Cells-Urine 0-5 SEEN /hpf (0-5); Squamous Epithelial Cells - UA 0-5 SEEN /hpf (0-5)
[2025-04-20 22:00] VITALS: BP 134/82; PULSE 65; RESP 16; TEMP 36.7; O2SAT 95
[2025-04-20 22:07] VITALS: BP 134/82; PULSE 65; RESP 16; TEMP 36.7; O2SAT 95
== END 2025-04-20 22:08 | disposition home or self-care (01) ==
PROVIDERS: Emergency Provider Emergency Medicine; PCP Family Medicine; Visit Provider Emergency Medicine
DX: N40.1 Benign prostatic hyperplasia with lower urinary tract symptoms (principal); K59.00 Constipation, unspecified; R33.8 Other retention of urine; R30.0 Dysuria; I10 Essential (primary) hypertension; E78.5 Hyperlipidemia, unspecified; Z79.01 Long term (current) use of anticoagulants; Z79.85 Long-term (current) use of injectable non-insulin antidiabetic drugs; Z79.899 Other long term (current) drug therapy
CPT/HCPCS: 81001; 99282

== ENCOUNTER 2025-04-22 09:54 | Emergency (ER) | payer MEDICARE, OTHER, SELFPAY ==
[2025-04-22 09:55] VITALS: BP 135/86; PULSE 97; RESP 18; TEMP 36.6; O2SAT 96
--- NOTE | 2025-04-22 10:11 | ED.VIS.GI ---
HPI HPI - GI History of Present Illness Chief Complaint: Constipation Informant: patient and spouse/S.O. Narrative Narrative: Patient is a 74-year-old male with a history of diverticulitis and colonic resection presenting with constipation and abdominal discomfort. - Reports constipation for past 4 days, with associated abdominal discomfort and nausea today. - Describes a sensation of pressure in the rectal area, particularly bothersome when sitting; alleviated when lying down. - Has felt some liquid stool on toilet paper but not in the toilet. - Has tried Miralax (two capfuls yesterday, morning and night) and Colace (two doses yesterday) with minimal relief. - Denies significant dietary changes; has been on Ozempic for 6-8 months with previous mild constipation managed by Dulcolax. - Has lost 55 lbs since starting Ozempic. - Recent urinary retention required catheterization 2 days ago; has an enlarged prostate and is awaiting follow-up with urologist. - History of four hernia repairs and colonic resection in 2000 for diverticulitis; denies having a colostomy bag. [facility] Medical History Acute otitis externa of left ear Acute pharyngitis, unspecified Personal history of colonic polyps Wears hearing aid Wears partial dentures Wears dentures Depression Alcohol use Back pain Meniere disease Non-smoker BiPAP (biphasic positive airway pressure) dependence Leg cramps Hypertension Obesity Paroxysmal atrial flutter Essential (primary) hypertension MAURI (obstructive sleep apnea) Vertigo Cirrhosis Hyperlipidemia Diverticulitis Arthritis Hemochromatosis Home Medications ?Medication ?Instructions ?Recorded ?Last Taken ?Type rxtsmbqb-muh-otzaa acid 0.4 1 ea PO DAILY SUPPLEMENT 05/22/14 03/09/23 History mg-lycopene 300 mcg-lutein 250 mcg tablet losartan 100 mg tablet 100 mg PO DAILY #90 tabs 01/29/20 03/09/23 Rx Cholecalciferol (Vitamin D3) 1 cap PO DAILY 04/30/20 03/09/23 History [Vitamin D3] hydrochlorothiazide 25 mg tablet 25 mg PO DAILY 04/30/20 Unknown History sertraline 100 mg tablet 100 mg PO DAILY 03/19/21 03/09/23 History meloxicam 15 mg tablet 15 mg PO DAILY 01/20/23 03/09/23 History apixaban 5 mg tablet 5 mg PO BID #180 tabs 06/22/24 Unknown Rx metoprolol tartrate 50 mg tablet 50 mg PO BID #180 tabs 11/06/24 Unknown Rx semaglutide 1 mg/dose (4 mg/3 mL) 1 mg subcut QWEEK 11/27/24 Unknown History subcutaneous pen injector (Ozempic) docusate sodium 100 mg capsule 100 mg PO DAILY 30 days #30 caps 04/20/25 Unknown Rx (Colace) Allergy/AdvReac Type Severity Reaction Status Date / Time Penicillins (PCN) Allergy Severe Hives Verified 04/22/25 09:58 nabumetone (From Relafen) Allergy Unknown Verified 04/22/25 09:58 ezetimibe (From Zetia) AdvReac Intermediate Pain in Verified 04/22/25 09:58 joints Odrtovz-VQF-OxD Reductase AdvReac Unknown Verified 04/22/25 09:58 Inhibitor (Teulsbh-Mmt-Pzv Reductase Inhibitor) Family History Mother COPD (chronic obstructive pulmonary disease) Father Heart disease Surgical History History of liver biopsy History of brain shunt Hx of right cataract extraction Hx of left cataract extraction History of cardioversion (06/11/19) History of hip replacement, total History of eye surgery History of vasectomy History of hernia repair History of colon resection History of back surgery History of appendectomy Social History Smoking Status: Never smoker alcohol intake: never ROS ROS ED Constitutional Constitutional ED: Denies chills or fever(s) Eyes Eyes: Denies change in vision or diplopia ENT ENT ED: Denies rhinorrhea or sore throat Cardiovascular Cardiovascular: Denies chest pain or palpitations Respiratory/Chest Respiratory/Chest: Denies cough or dyspnea Gastrointestinal Gastrointestinal: Reports abdominal pain, constipation and nausea; Denies diarrhea, hematochezia, melena or vomiting Genitourinary Genitourinary ED: Denies hematuria Musculoskeletal Musculoskeletal: Denies back pain or neck pain Integumentary Denies abscess or rash Neurologic Neurologic: Denies headache(s), paresthesias or weakness Psychiatric Psychiatric: Denies anxiety or suicidal thoughts EXAM Physical Exam Const Vital Signs: 04/22/25 09:55 Temperature 97.8 F Temperature Source Oral Pulse Rate 97 Respiratory Rate 18 Blood Pressure 135/86 H Blood Pressure Mean 102 Pulse Ox 96 Oxygen Delivery Method Room Air Positive well nourished and well developed General Appearance ED: well developed and NAD HEENT Reports moist mucous membranes normocephalic and atraumatic Eyes PERRL and EOMs intact bilaterally Neck full ROM and supple Resp normal respiratory effort and clear to auscultation bilaterally Cardio regular rate, regular rhythm and no murmurs GI non-tender and non-distended Auscultation: normoactive bowel sounds Palpation: soft Narrative: There is no rectal tenderness or abscess, fissure. There is hard stool palpable deep within the rectal vault fingertip, it is movable and light brown and there is no blood or melena. Back/Spine no CVA tenderness General Back: other FROM Extremity normal to inspection General Extremety ED: Negative for edema, pulses abnormal or tenderness General Extremity: Negative for edema or pulses abnormal Neuro oriented x3, CN's II-XII intact bilaterally and no sensory deficits noted Sensorium / Orientation: awake and alert Motor Exam: strength 5/5 throughout Skin no rashes or lesions noted and no wounds MDM MDM MDM Narrative Medical decision making narrative: Assessment: The patient is a 74-year-old male with PMH of enlarged prostate, multiple prior abdominal hernia repairs, and a 2001 colon resection for diverticulitis presenting for four-day constipation now progressed to fecal impaction with associated abdominal pressure, nausea, and sensation of incomplete evacuation. He also carries a Alvarez catheter placed two days ago for urinary retention, which may be multifactorial but likely exacerbated by the current impaction. Following bedside digital disimpaction and enemas, copious stool was expelled with immediate reduction in abdominal discomfort and nausea. Plan: - Bedside digital disimpaction completed in ED. - Therapeutic enemas administered for further stool evacuation. - Continue oral stool softener (Colace) and polyethylene glycol (Miralax) 1 capful daily x 1?2 weeks to prevent recurrence. - Encourage liberal oral fluid intake. - Maintain indwelling Alvarez catheter until scheduled urology follow-up tomorrow; defer trial of void until then. - Discharged home in improved condition with return precautions and instructions provided. Reevaluations: - Post-procedure: significant stool output; patient reports reduced pressure, improved nausea; rectal soreness only. Discharge Plan Triage Chief Complaint: Constipation ED Provider: Grover Lemons Dx/Rx/DC Orders Clinical Impression: Fecal impaction, Constipation Instructions: ED Fecal Impaction, Treated Prescriptions: No Action sertraline 100 mg tablet 100 mg PO DAILY losartan 100 mg tablet 100 mg PO DAILY Qty: 90 3RF meloxicam 15 mg tablet 15 mg PO DAILY Ozempic 1 mg/dose (4 mg/3 mL) pen injector 1 mg subcut QWEEK misbjqkp-mdz-IV-lycopen-lutein 1 EACH tablet 1 ea PO DAILY Patient Comments: suppliment hydrochlorothiazide 25 MG tablet 25 mg PO DAILY Cholecalciferol (Vitamin D3) [Vitamin D3] 5,000 UNIT capsule 1 cap PO DAILY docusate sodium [Colace] 100 mg capsule 100 mg PO DAILY 30 Days Qty: 30 0RF apixaban 5 mg tablet 5 mg PO BID Qty: 180 3RF Rx Instructions: Sending to [facility] metoprolol tartrate 50 mg tablet 50 mg PO BID Qty: 180 3RF Primary Care Provider: Tres Alexander Referrals: Tres Alexander DO [Primary Care Provider, Family Practice] - As Needed Activity Restrictions/Additional Instructions: - Continue your stool softeners for the next 1?2 weeks to keep your bowels moving: - Miralax (polyethylene glycol) one capful mixed in water once daily - Colace as you were using before - Drink plenty of fluids each day, especially with your Miralax doses - If you become constipated again, use a therapeutic dose of Miralax (one full cup of powder mixed in water) with plenty of fluid to help flush the blockage - Keep your urinary catheter in place and attend your urology follow-up appointment tomorrow morning before trying to remove it - If constipation or difficulty urinating returns after your urology visit, contact your healthcare provider for further guidance Print Language: Belgian Disposition Disposition: Home, Self Care
[2025-04-22 10:40] VITALS: BMI 33.0
[2025-04-22 12:24] VITALS: BP 135/86; PULSE 97; RESP 18; TEMP 36.6; O2SAT 96
== END 2025-04-22 12:25 | disposition home or self-care (01) ==
PROVIDERS: Emergency Provider Emergency Medicine; PCP Family Medicine; Visit Provider Emergency Medicine
DX: K56.41 Fecal impaction (principal); N40.1 Benign prostatic hyperplasia with lower urinary tract symptoms; R33.8 Other retention of urine; I10 Essential (primary) hypertension; E78.5 Hyperlipidemia, unspecified; Z79.01 Long term (current) use of anticoagulants; Z79.85 Long-term (current) use of injectable non-insulin antidiabetic drugs; Z79.899 Other long term (current) drug therapy; Z87.19 Personal history of other diseases of the digestive system
CPT/HCPCS: 99284

== ENCOUNTER → 2025-05-02 | Outpatient (CLI) | payer MEDICARE, OTHER, SELFPAY ==
[2025-05-02 10:43] LABS: Creatinine, Urine (random) 89.20 mg/dL (39.00-259.00); Microalbumin,Random Urine 25.2 mg/L (<20 mg/L)
[2025-05-02 10:50] LABS: AST(SGOT) 32 U/L (<=37); Alanine Aminotransfer ALT/SGPT 32 U/L (<=46); Albumin, Serum 4.3 g/dL (3.4-4.8); Alkaline Phosphatase 101 U/L (40-129); Anion Gap 11 (5-15); BUN 16 mg/dL (4-19); BUN/Creat Ratio 19.7 RATIO (10-20); Calcium,Total 10.2 mg/dL (7.6-11.0); Carbon Dioxide 25.9 mmol/L (21.0-32.0); Chloride 99 mmol/L (98-108); Cholesterol 174 mg/dL (<=200); Globulin 3.4 g/dL (2.2-4.2); Glucose 133 mg/dL (70-99); Low Density Lipoprotein Calc. 105 mg/dL; Potassium 4.3 mmol/L (3.3-5.1); Triglycerides 201 mg/dL; Very Low Density Lipoprotein 40 mg/dL (5-40); cholesterol:hdl ratio screen 5.10
== END | disposition home or self-care (01) ==
LOC: LAB 08:59
PROVIDERS: PCP Family Medicine; Referring Provider Family Medicine; Visit Provider Family Medicine
DX: I10 Essential (primary) hypertension (principal); E11.59 Type 2 diabetes mellitus with other circulatory complications; E83.110 Hereditary hemochromatosis; Z12.5 Encounter for screening for malignant neoplasm of prostate
CPT/HCPCS: 36415; 80053; 80061; 82043; 82570; 83036

== ENCOUNTER → 2025-05-16 | Outpatient (CLI) | payer MEDICARE, OTHER, SELFPAY ==
[2025-05-16 17:44] LABS: Hematocrit 45.4 % (40-54); Hemoglobin 15.9 g/dL (13.0-16.5); Immature Granulocytes Count 0.030 X10^3/uL (0.0-0.0); Mean Corp Hgb Conc 35.0 g/dL (32-36); Mean Corpuscular Volume 93.6 fL (80-94); Mean Platelet Vol. 11.1 fl (6.2-12.0); NRBC Flagged by Analyzer 0 % (0-5); Platelet Count 179 K/mm3 (150-450); RBC Distribution Width CV 13.2 % (11.6-14.6); RBC Distribution Width SD 45.0 fl (35.1-43.9); Red Blood Count 4.85 M/mm3 (4.6-6.2); White Blood Count 7.5 K/mm3 (4.4-11.0)
[2025-05-16 18:18] LABS: AST(SGOT) 38 U/L (<=37); Alanine Aminotransfer ALT/SGPT 44 U/L (<=46); Albumin, Serum 4.3 g/dL (3.4-4.8); Alkaline Phosphatase 100 U/L (40-129); Anion Gap 14 (5-15); BUN 22 mg/dL (4-19); BUN/Creat Ratio 25.9 RATIO (10-20); Calcium,Total 10.1 mg/dL (7.6-11.0); Carbon Dioxide 23.0 mmol/L (21.0-32.0); Chloride 97 mmol/L (98-108); Ferritin 180 ng/mL (37-417); Globulin 3.6 g/dL (2.2-4.2); Glucose 160 mg/dL (70-99); Potassium 4.0 mmol/L (3.3-5.1)
[2025-05-16 18:43] LABS: PSA,Total - Annual Screen 7.07 ng/mL (0.02-4.00)
--- OUTSIDE RECORDS SUMMARY | 2025-05-16 19:04 | XMS RPT_ITS | CCD ---
Author Organization [facility] Care Team Providers Care Trim Line Worker Name Role Phone Misa TANG, Latoya Woo Unavailable Yamini Lim Unavailable Unavailable Alonzo Dupree Admitting Unavailable Alonzo Dupree Attending Unavailable Arnold Escobedo Primary Care Unavailable Yamini Lim Unavailable Unavailable Ada Alexander Unavailable Vani Cordon Unavailable Unavailable Dr. Ada Alexander Primary Care Provider [phone] Dr. Ada Alexander Referring Provider Mars HOOD, QUALITY ASSURANCE PRACTICE MANAGER-C Gabriela Attending Provider Dr. Ada Alexander Primary Care Provider Dr. Ada Alexander Referring Provider CONNER Law Attending Provider Dr. Roque Kang Attending Provider CONNER Grover Attending Provider Dr. Faustino Chin Attending Provider Anil HOOD, DEVAUGHN Warren Attending Provider Dr. Ada Alexander Primary Care Provider [phone] Ada Alexander Referring Provider [phone] Faustino Chin Other Provider Dr. Ada Alexander Primary Care Provider [phone] Dr. Ada Alexander Referring Provider CONNER Grover Attending Provider Dr. Roque Kang Attending Provider Dr. Ada Alexander Primary Care Provider Dr. Ada Alexander Referring Provider Dr. Ada Alexander Primary Care Provider [phone] Dr. Ada Alexander Referring Provider Dr. Roque Kang Attending Provider CONNER Grover Attending Provider Dr. Ada Alexander Primary Care Provider Dr. Ada Alexander Referring Provider ANDREZ PINEDO Attending Unavailable HONG, GLORIA HYUN Referring Unavailable FRANCOIS, ADA A Primary Care Unavailable HONG, GLORIA KINGN Referring Unavailable FRANCOIS, ADA A Primary Care Unavailable HONG, GLORIA KINGN Referring Unavailable FRANCOIS, ADA A Primary Care Unavailable HONG, GLORIA HYUN Referring Unavailable FRANCOIS, ADA A Primary Care Unavailable HONG, GLORIA PURVIS Referring Unavailable FRANCOIS, ADA A Primary Care Unavailable HONG, GLORIA PURVIS Referring Unavailable FRANCOIS, ADA A Primary Care Unavailable ARI CARABALLO Attending Unavailable HONG, GLORIA HYUN Referring Unavailable FRANCOIS, ADA A Primary Care Unavailable Francois Dr. Ada MENDOZA Primary Care Provider Dr. Ada Alexander DO Referring Provider [phone] Mars QUALITY ASSURANCE PRACTICE MANAGER-C, Gabriela Attending Provider Ada Alexander Attending Unavailable Francois, Ada Primary Care Unavailable Francois, Ada Attending Unavailable Francois, Ada Primary Care Unavailable Francois, Ada Referring Unavailable Francois, Ada Primary Care Unavailable Elsy, Orchard Consulting Unavailable Ermelinda PRIETO, Latoya Huitron Attending Unavail able Latoya Grover Referring Unavail able FrancoisAda miramontes Attending Unavailable Francois, Ada Primary Care Unavailable Francois, Ada Referring Unavailable Francois, Ada Primary Care Unavailable Mars QUALITY ASSURANCE PRACTICE MANAGER, Gabriela Referring Unavailable Mars QUALITY ASSURANCE PRACTICE MANAGER, Gabriela Attending Unavailable Francois, Ada Primary Care Unavailable Francois, Ada Referring Unavailable Mars QUALITY ASSURANCE PRACTICE MANAGER, Gabriela Attending Unavailable Francois, Ada Primary Care Unavailable Francois, Ada Referring Unavailable Mars QUALITY ASSURANCE PRACTICE MANAGER, Gabriela Attending Unavailable Francois, Ada Primary Care Unavailable Francois, Ada Referring Unavailable Jay Carter Attending Unavailable Francois, Ada Primary Care Unavailable Latoya Grover Attending Unavail able Elsy, Faustino Consulting Unavailable Latoya Grover Referring Unavail able Francois, Ada Primary Care Unavailable Latoya Grover Attending Unavail able Elsy, Orchard Consulting Unavailable Latoya Grover Referring Unavail able Francois, Ada Primary Care Unavailable Francois, Ada Referring Unavailable Francois, Ada Attending Unavailable Francois, Ada Primary Care Unavailable Marine Gold Attending Unavailable Francois, Ada Primary Care Unavailable Grover Lemons Attending Unavailable Francois, Ada Referring Unavailable Mars QUALITY ASSURANCE PRACTICE MANAGER, Gabriela Attending Unavailable Francois, Ada Primary Care Unavailable Francois, Ada Primary Care Unavailable Latoya Grover Attending Unavail able Elsy, Faustino Consulting Unavailable Latoya Grover Referring Unavail able Allergies Allergy Classification Reported Allergen(s) Allergy Type Date of Onset Reaction(s) Facility Penicillins (antibiotic) (1 source) Penicillin Drug Allergy Hives/Urticaria [facility] (3 sources) ezetimibe drug allergy 6 myalgia [facility] Work Phone: (3 sources) fish, unspecified; Translations: [STATIN MEDICATIONS] food allergy 6 Elevated LFT's [facility] Work Phone: (4 sources) penicillin drug allergy Hives/Urticaria [facility] Work Phone: (12 sources) Penicillins; Translations: [penicillins] Propensity to adverse reactions to drug (disorder) 2 [facility] Repository (10 sources) ezetimibe Drug Allergy 2 Pain in joints [facility] (10 sources) nabumetone Drug Allergy 2 Unknown [facility] (11 sources) Zdccspk-Mfn-Sww Reductase Inhibitor; Translations: [Qyrmwxb-Kld-Qv a Reductase Inhibitor] Propensity to adverse reactions 2 Unknown [facility] (1 source) ALLERGIES NOT ON FILE; Translations: [ALLERGIES NOT ON FILE] Propensity to adverse reactions (disorder) [facility] 2 Repository (1 source) ezetimibe Drug Allergy 5 [facility] Repository (1 source) nabumetone Drug Allergy 5 [facility] Repository Medications Current Medications Medication Drug Class(es) Dates Sig (Normalized) Sig (Original) apixaban 5 mg oral tablet (20 sources) Factor Xa Inhibitor Start: 06-22-2024 take 1 tablet by mouth twice daily Apixaban 5 mg tablet Active 5 mg PO TWICE A DAY 180 June 22, 2024 1:00am Sending to [employer] Start: 01-18-2023 End: 09-01-2023 take 1 tablet [...] Start: 04-30-2020 take 1 capsule by mo [facility] once daily Cholecalciferol (Vitamin D3) (Vitamin D3) 5,000 UNIT capsule Active 1 CAP PO DAILY April 30, 2020 12:00am Start: 04-30-2020 take 1 capsule by mo [facility] once daily Cholecalciferol (Vitamin D3) (Vitamin D3) [...] mg tablet Active 100 mg PO DAILY January 29, 2020 12:00am Start: 01-29-2020 End: 01-29-2020 take 1 tablet by mouth once daily Losartan 50 mg tablet Discontinued 50 mg PO DAILY January 29, 2020 12:00am January 29, 2020 4:10pm [facility] losartan 25 mg oral tablet [...] 2018 9:34am take 1 capsule by mo [facility] once daily meloxicam 5 mg oral capsule ; 1 cap(s) orally once a day Quantity: 0 Refills: 0 Ordered: 21-Jun-2019 Keely Abbott Generic Substitution Allowed End: 10-28-2015 take 1 tablet by mouth once daily MELOXICAM 15 MG TABS One tablet by mouth daily MELOXICAM [id number] Eddie Villalta metoprolol tartrate 50 mg oral tablet [...] by mouth twice daily- STOP METOPROLOL TARTRATE [id number] Latoya Wadsworth PA-C Mtccqtna-Ivs-Md-Lycopen-Lute in (9 sources) Start: 05-22-2014 Mqyziigf-Chr-Ax-Lycopen-Lute in Active 1 EACH PO DAILY May 22, 2014 12:00am Start: 05-22-2014 Pndzlaur-Hky-B d-Ogfxgtu-Hbtrvz Active 1 EACH PO DAILY May 22, 2014 1:00am Efldasyn-Skc-Pa-Lycopen-Lute in 1 EACH tablet (1 source) Start: 05-22-2014 Paifzvqg-Skx-Ck-Lycopen-Lute in 1 EACH tablet Active 1 NMA [...] oral table t (20 sources) Seroto greg Rekaydena ke Inhibi tor Start: 03-19-2021 take 1 [...] One tablet by mouth daily SERTRALINE HCL [id number] Clau Smart LPN take 1 tablet by [...] mg) on the opposite days. SERTRALINE HCL [id number] Eddie Villalta take 1 tablet by wolf th once daily ZOLOFT 50 MG TABS One tablet by mouth daily. SERTRALINE HCL [id number] Lalito Carty DO Completed/Discontinued Medications Medication Drug [...] TBEC One tablet by mouth daily ASPIRIN [id number] Latoya Wadsworth PA-C azithromycin 250 mg oral [...] TABS One tablet by mouth daily EZETIMIBE [id number] Clau Smart LPN hydroCHLOROthiazide 12.5 mg / [...] TABS One-half tablet by mouth daily VALSARTAN-HYDROCHLOROTHIAZIDE [id number] [facility] Machelle DO take 0.5 tablet by m outh once daily, then take 160-25 tablets by mouth DIOVAN HCT 160-25 MG TABS One-half table t by mouth daily VALSARTAN-HYDROCHLOROTHIAZIDE [id number] [facility] Machelle DO take 1 tablet by wolf th once daily DIOVAN HCT 160-25 MG TABS One tablet by mouth daily VALSARTAN-HYDROCHLOROTHIAZIDE [id number] Clau Smart LPN hydrocortisone 10 mg/ml / neomycin 3.5 mg/ml / polymyxin b 46217 unt/ml otic suspension (9 sources) Aminoglycoside Antibacterial, Polymyxin-class Antibacterial, Corticosteroid Start: 10-28-2022 End: 11-07-2022 Qvgqzveh-Mpzobsoxh-Lb 3.5-10,000-1 mg/mL-unit/mL-% drops,suspension Discontinued 4 NMA OTIC THREE TIMES A DAY 04 05October 28, 2022 12:00am November 06, 2022 12:00am November 07, 2022 12:04am to affected ear(s) Start: 10-28-2022 End: 11-07-2022 Orrqxvfi-Fzplkfrmk-Wp Discon tinued 4 DRP OTIC THREE TIMES A DAY 10 October 28, 2022 12:00am November 07, 2022 12:04am to affected ear(s) ibuprofen 200 mg oral tablet (6 sources) Nonsteroidal Anti-inflammatory Drug End: 07-17-2014 take 2 tablets by mouth three times daily as needed ADVIL 200 MG TABS Two tablets by mouth three times daily as needed IBUPROFEN [id number] Clau Berry LPN 3 ml insulin glargine 100 unt/ml pen injector (1 source) Insulin Analog Start: 03-20-2024 End: 11-27-2024 Insulin Glargine (Basaglar Kwikpen U-100 Insulin) 100 unit/mL (3 mL) insulin pen Discontinued U SC March 20, 2024 12:00am November 27, 2024 2:22pm MULTIPLE VITAMIN (2 sources) take 1 tablet by mouth once daily MULTIVITAMINS TABS One tablet by mouth daily MULTIPLE VITAMIN [id number] Clau Berry PUENTE MULTIPLE VITAMIN (1 source) take 1 tablet by mouth once daily MULTIVITAMINS TABS One tablet by mouth daily MULTIPLE VITAMIN [id number] Clau Berry LPN oxyCODONE hydrochloride 5 mg oral tablet [...] TABS One tablet by mouth daily RIVAROXABAN [id number] Faustino Chin MD rosuvastatin 10 mg oral [...] Will discontinue once patient received eliquis from [facility] Please contact the information source for Protocol details. Start: 10-28-2023 End: 06-22-2024 Warfarin 4 mg tablet Discont inued 4 mg PO .COMPLEX 200 October 28, 2023 2:07pm June 22, 2024 5:39pm 4 mg orally 2 tablets ( 8 mg) Tue, , , ; and 2.5 tablets (10 [...] unspecified] 08-01-2023 Chronic Diabetes mellitus with complications (3 sources) Type 2 diabetes mellitus with other circulatory complications; Translations: [Type 2 diabetes mellitus with diabetic neuropathy, unspecified] Onset: 05-07-2024 Chronic Disorders of lipid metabolism (20 sources) Hyperlipidemia; Translations: [Hyperlipidemia, unspecified] Onset: 06-02-2016 06-02-2016 Chronic E Codes: Fall (4 sources) Fall in home; Translations: [Unspecified fall, initial encounter] 08-01-2023 Episodic Essential hypertension (20 sources) Hypertensive disorder; Translations: [Essential hypertension] Onset: 06-02-2016 06-02-2016 Chronic Genitourinary symptoms and ill-defined conditions (1 source) Unspecified symptoms and signs involving the genitourinary system; Translations: [Unspecified symptoms and signs involving the genitourinary system] Onset: 05-02-2025 Episodic Lymphadenitis (1 source) Lymphadenopathy; Translations: [Enlargement of lymph nodes] 12-31-2020 Episodic Malaise and fatigue (12 sources) Fatigue; Translations: [Other fatigue] 01-20-2023 Episodic Other aftercare (10 sources) Long-term current use of anticoagulant; Translations: [senior care (current) use of anticoagulants] 10-31-2019 Episodic Other [...] encounter for closed fracture] 08-09-2023 Episodic Other gastrointestinal disorders (1 source) Constipation, unspecified; Translations: [Constipation, unspecified] Onset: 05-03-2025 Episodic Other non-traumatic joint disorders (2 sources) [...] Translations: [Hereditary hemochromatosis] Onset: 11-27-2024 Chronic Other screening for suspected conditions (not mental disorders or infectious disease) (2 sources) Encounter for screening for malignant neoplasm of prostate; Translations: [Encounter for screening for malignant neoplasm of prostate] Onset: 05-26-2024 Episodic Other upper respiratory disease (2 sources) Pain [...] Onset: 07-08-2024 Episodic Other aftercare (3 sources) 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, [address] Albumin/Globulin [Mass ratio] 1.2 {ratio} Normal 0.9-2.4 [facility] Comment on above: Performed By: #### L 503.6550, L500.4050, L100.0100 #### [facility] [address] [place], [address] ALK PHOS 101 U/L Normal 40-129 [facility] Comment on above: Performed By: #### L 503.6550, L500.4050, L100.0100 #### [facility] [address] [place], [address] ALT [Catalytic activity/Vol] 32 U/L Normal <=46 [facility] Comment on above: Performed By: #### L 503.6550, L500.4050, L100.0100 #### [facility] [address] [place], [address] AST [Catalytic activity/Vol] 32 U/L Normal <=37 [facility] Comment on above: Performed By: #### L 503.6550, L500.4050, L100.0100 #### [facility] [address] [place], [address] Bilirubin [Mass/Vol] 0.91 mg/dL Normal 0.00-1.30 [facility] Comment on above: Performed By: #### L 503.6550, L500.4050, L100.0100 #### [facility] [address] [place], [address] BUN/CRE 19.7 RATIO Normal 10-20 [facility] Comment on above: Performed By: #### L 503.6550, L500.4050, L100.0100 #### [facility] [address] [place], [address] Calcium [Mass/Vol] 10.2 mg/dL Normal 7.6-11.0 [facility] Comment on above: Performed By: #### L 503.6550, L500.4050, L100.0100 #### [facility] [address] [place], [address] Chloride [Moles/Vol] 99 mmol/L Normal 98-108 [facility] Comment on above: Performed By: #### L 503.6550, L500.4050, L100.0100 #### [facility] [address] [place], [address] CO2 [Moles/Vol] 25.9 mmol/L Normal 21.0-32.0 [facility] Comment on above: Performed By: #### L 503.6550, L500.4050, L100.0100 #### [facility] [address] [place], [address] Creatinine [Mass/Vol] 0.82 mg/dL Normal 0.70-1.20 [facility] Comment on above: Performed By: #### L 503.6550, L500.4050, L100.0100 #### [facility] [address] [place], [address] GAP 11 Normal 5-15 [facility] Comment on above: Performed By: #### L 503.6550, L500.4050, L100.0100 #### [facility] [address] [place], [address] GFR/1.73 sq M.predicted among non-blacks MDRD (S/P/Bld) [Vol rate/Area] 93 mL/min/{1.73_m2} Normal >60 [facility] Comment on above: Result Comment: mL/m in/1.73m2 CKD-EPI Creatinine Equation (2020) Performed By: #### L 503.6550, L500.4050, L100.0100 #### [facility] [address] [place], [address] Globulin (S) [Mass/Vol] 3.4 g/dL Normal 2.2-4.2 [facility] Comment on above: Performed By: #### L 503.6550, L500.4050, L100.0100 #### [facility] [address] [place], [address] Glucose [Mass/Vol] 133 mg/dL High 70-99 [facility] Comment on above: Performed By: #### L 503.6550, L500.4050, L100.0100 #### [facility] [address] [place], [address] Potassium [Moles/Vol] 4.3 mmol/L Normal 3.3-5.1 [facility] Comment on above: Performed By: #### L 503.6550, L500.4050, L100.0100 #### [facility] [address] [place], [address] Sodium [Moles/Vol] 136 mmol/L Normal 133-145 [facility] Comment on above: Performed By: #### L 503.6550, L500.4050, L100.0100 #### [facility] [address] [place], [address] T PROT 7.7 g/dL Normal 5.9-8.4 [facility] Comment on above: Performed By: #### L 503.6550, L500.4050, L100.0100 #### [facility] [address] [place], [address] Urea nitrogen [Mass/Vol] 16 mg/dL Normal 4-19 [facility] Comment on above: Performed By: #### L 503.6550, L500.4050, L100.0100 #### [facility] [address] [place], [address] Hemoglobin A1con 05-02-2025 HbA1c (Bld) [Mass fraction] 5.9 % High <=5.6 [facility] Comment on above: Result Comment: Norm al < 5.7 % Prediabetic 5.7 - 6.4 % Diabetic >or= 6.5 % Please note range changes. Performed By: #### L 503.6550, L500.4050, L100.0100 #### [facility] [address] [place], [address] Lipid Profileon 05-02-2025 CHOL:HDL 5.10 Normal [facility] Comment on above: Performed By: #### L 503.6550, L500.4050, L100.0100 #### [facility] [address] [place], [address] Cholesterol [Mass/Vol] 174 mg/dL Normal <=200 [facility] Comment on above: Result Comment: Chol esterol level, Desirable <200 mg/dL Borderline high cholesterol 200-239 mg/dL High cholesterol >=240 mg/dL Recommendations of the NCEP Adult Treatment Panel for the following risk-cutoff thresholds for the [place] population. Performed By: #### L 503.6550, L500.4050, L100.0100 #### [facility] [address] [place], [address] Cholesterol in HDL [Mass/Vol] 34 mg/dL Low [facility] Comment on above: Result Comment: Alla onal Cholesterol Education Program (NCEP) guidelines: <40 mg/dL: Low HDL-cholesterol (major risk factor for CHD) >= 60 mg/dL: High HDL-cholesterol (negative risk factor for CHD) HDL-cholesterol is affected by a number of factors, e.g. smoking, exercise, hormones, sex and age. Performed By: #### L 503.6550, L500.4050, L100.0100 #### [facility] [address] [place], [address] Cholesterol in LDL [Mass/Vol] 105 mg/dL Normal [facility] Comment on above: Result Comment: Bord kfpweb=687-425 mg/dL Higher Tkvj=302 mg/dL or greater Wilson Equation 2020 for LDL-C Performed By: #### L 503.6550, L500.4050, L100.0100 #### [facility] [address] [place], [address] Cholesterol in VLDL [Mass/Vol] 40 mg/dL Normal 5-40 [facility] Comment on above: Performed By: #### L 503.6550, L500.4050, L100.0100 #### [facility] [address] [place], [address] Triglyceride [Mass/Vol] 201 mg/dL High [facility] Comment on above: Result Comment: The drugs N-Acetylcysteine and Metamizole may falsely depress this assay. Normal range: <150 mg/dL Borderline High: 150-199 mg/dL High: 200-499 mg/dL Very High: >500 mg/dL Performed By: #### L 503.6550, L500.4050, L100.0100 #### [facility] [address] [place], [address] Microalb:Creat Ratio,Random URon 05-02-2025 Creatinine [Mass/Vol] 89.20 mg/dL Normal 39.00- 259.0 0 [facility] Comment on above: Performed By: #### L 503.6550, L500.4050, L100.0100 #### [facility] [address] [place], [address] MALB:CREAT 28.3 mg/g CRE Normal <30 mg/g CRE [facility] Comment on above: Performed By: #### L 503.6550, L500.4050, L100.0100 #### [facility] [address] [place], [address] MICROALBUMIN,UR 25.2 mg/L Normal <20 mg/L [facility] Comment on above: Performed By: #### L 503.6550, L500.4050, L100.0100 #### [facility] [address] [place], [address] Emergency Department Summary on 04-22-2025 Emergency Department Summary [facility] Medical Records Department [address] [place] [address] Emergency Department Summary 04/22/25 MR#: [id number] Acct: [id number] Name: EDWIGE MAHMOOD Rep #: [id number] : 1950 74 From: Grover Lemons MD PCP: Dr. Ada Alexander, DO Status:REG ER Location: ED HPI HPI - GI History of Present Illness Chief Complaint: Constipation Informant: patient and spouse/S.O. Narrative Narrative: Patient is a 74-year-old male with a history of diverticulitis and colonic resection presenting with constipation and abdominal discomfort. - Reports constipation for past 4 days, with associated abdominal discomfort and nausea today. - Describes a sensation of pressure in the rectal area, particularly bothersome when sitting; alleviated when lying down. - Has felt some liquid stool on toilet paper but not in the toilet. - Has tried Miralax (two capfuls yesterday, morning and night) and Colace (two doses yesterday) with minimal relief. - Denies significant dietary changes; has been on Ozempic for 6-8 months with previous mild constipation managed by Dulcolax. - Has lost 55 lbs since starting Ozempic. - Recent urinary retention required catheterization 2 days ago; has an enlarged prostate and is awaiting follow-up with urologist. - History of four hernia repairs and colonic resection in 2000 for diverticulitis; denies having a colostomy bag. [facility] Medical History Acute otitis externa of left ear Acute pharyngitis, unspecified Personal history of colonic polyps Wears hearing aid Wears partial dentures Wears dentures Depression Alcohol use Back pain Meniere disease Non-smoker BiPAP (biphasic positive airway pressure) dependence Leg cramps Hypertension Obesity Paroxysmal atrial flutter Essential (primary) hypertension MAURI (obstructive sleep apnea) Vertigo Cirrhosis Hyperlipidemia Diverticulitis Arthritis Hemochromatosis Home Medications ???Medication ???Instructions ???Recorded ???Last Taken ???Type odnmbetl-ebn-fzmyo acid 0.4 1 ea PO DAILY SUPPLEMENT 05/22/14 03/09/23 History mg-lycopene 300 mcg-lutein 250 mcg tablet losartan 100 mg tablet 100 mg PO DAILY #90 tabs 01/29/20 03/09/23 Rx Cholecalciferol (Vitamin D3) 1 cap PO DAILY 04/30/20 03/09/23 H istory [Vitamin D3] hydrochlorothiazide 25 mg tablet 25 mg PO DAILY 04/30/20 Unknown Hi story sertraline 100 mg tablet 100 mg PO DAILY 03/19/21 03/09/23 History meloxicam 15 mg tablet 15 mg PO DAILY 01/20/23 03/09/23 H istory apixaban 5 mg tablet 5 mg PO BID #180 tabs 06/22/24 Unk nown Rx metoprolol tartrate 50 mg tablet 50 mg PO BID #180 tabs 11/06/24 Un known Rx semaglutide 1 mg/dose (4 mg/3 mL) 1 mg subcut QWEEK 11/27/24 Unknow n History subcutaneous pen injector (Ozempic) docusate sodium 100 mg capsule 100 mg PO DAILY 30 days #30 caps 1 Unknown Rx (Colace) Allergy/AdvReac Type Severity Reaction Status Date / Time Penicillins (PCN) Allergy Severe Hives Verified 04/22/25 09:58 nabumetone (From Relafen) Allergy Unknown Verified 04/22/25 09:58 ezetimibe (From Zetia) AdvReac Intermediate Pain in Verified 04/22/25 09:58 joints Wrbnjpn-OXA-ApI Reductase AdvReac Unknown Verified 04/22/25 09:58 Inhibitor (Vhqdegg-Nxd-Dpk Reductase Inhibitor) Family History Mother COPD (chronic obstructive pulmonary disease) Father Heart disease Surgical History History of liver biopsy History of brain shunt Hx of right cataract extraction Hx of left cataract extraction History of cardioversion (06/11/19) History of hip replacement, total History of eye surgery History of vasectomy History of hernia repair History of colon resection History of back surgery History of appendectomy Social History Smoking Status: Never smoker alcohol intake: never ROS ROS ED Constitutional Constitutional ED: Denies chills or fever(s) Eyes Eyes: Denies change in vision or diplopia ENT ENT ED: Denies rhinorrhea or sore throat Cardiovascular Cardiovascular: Denies chest pain or palpitations Respiratory/Chest Respiratory/Chest: Denies cough or dyspnea Gastrointestinal Gastrointestinal: Reports abdominal pain, constipation and nausea; Denies diarrhea, hematochezia, melena or vomiting Genitourinary Genitourinary ED: Denies hematuria Musculoskeletal Musculoskeletal: Denies back pain or neck pain Integumentary Denies abscess or rash Neurologic Neurologic: Denies headache(s), paresthesias or weakness Psychiatric Psychiatric: Denies anxiety or suicidal thoughts EXAM Physical Exam (more content not included)... Normal [facility] Department Summary on 04-20-2025 Emergency Department Summary [facility] Medical Records Department [address] [place] [address] Emergency Department Summary 04/20/25 MR#: [id number] Acct: [id number] Name: EDWIGE MAHMOOD Cor[place] Rep #: [id number] : 1950 74 From: Marine Gold MD PCP: Dr. Ada Alexander DO Status:REG ER Location: ED HPI History of Present Illness Chief Complaint: Complaint Narrative Narrative: This is a 74-year-old male who presents to the emergency department with urinary retention, abdominal pain and dysuria. The patient states since yesterday he has been having some dysuria. The patient was able to fully urinate this morning but has not been able to since then. He is having trouble initiating stream. He has quite a bit of burning when he urinates. No hematuria. He feels a lot of pain and pressure in the suprapubic region of his abdomen. No back or flank pain. No fevers or chills. No nausea or vomiting. The patient states that he has been constipated, but he drink a full glass with MiraLAX and took a Dulcolax this morning and now he is starting to have multiple bowel movements. Patient states his gave him Azo for the dysuria. He does have a history of BPH. He has required a Alvarez catheter in the past. [facility] Medical History Acute otitis externa of left ear Acute pharyngitis, unspecified Personal history of colonic polyps Wears hearing aid Wears partial dentures Wears dentures Depression Alcohol use Back pain Meniere disease Non-smoker BiPAP (biphasic positive airway pressure) dependence Leg cramps Hypertension Obesity Paroxysmal atrial flutter Essential (primary) hypertension MAURI (obstructive sleep apnea) Vertigo Cirrhosis Hyperlipidemia Diverticulitis Arthritis Hemochromatosis Home Medications ???Medication ???Instructions ???Recorded ???Last Taken ???Type clsytlde-jpy-sxozd acid 0.4 1 ea PO DAILY SUPPLEMENT 05/22/14 03/09/23 History mg-lycopene 300 mcg-lutein 250 mcg tablet losartan 100 mg tablet 100 mg PO DAILY #90 tabs 01/29/20 03/09/23 Rx Cholecalciferol (Vitamin D3) 1 cap PO DAILY 04/30/20 03/09/23 H istory [Vitamin D3] hydrochlorothiazide 25 mg tablet 25 mg PO DAILY 04/30/20 Unknown Hi story sertraline 100 mg tablet 100 mg PO DAILY 03/19/21 03/09/23 History meloxicam 15 mg tablet 15 mg PO DAILY 01/20/23 03/09/23 H istory apixaban 5 mg tablet 5 mg PO BID #180 tabs 06/22/24 Unk nown Rx metoprolol tartrate 50 mg tablet 50 mg PO BID #180 tabs 11/06/24 Un known Rx semaglutide 1 mg/dose (4 mg/3 mL) 1 mg subcut QWEEK 11/27/24 Unknow n History subcutaneous pen injector (Ozempic) docusate sodium 100 mg capsule 100 mg PO DAILY 30 days #30 caps 1 Unknown Rx (Colace) Allergy/AdvReac Type Severity Reaction Status Date / Time Penicillins (PCN) Allergy Severe Hives Verified 04/20/25 19:23 nabumetone (From Relafen) Allergy Unknown Verified 04/20/25 19:23 ezetimibe (From Zetia) AdvReac Intermediate Pain in Verified 04/20/25 19:23 joints Hmmtmus-NXX-PoG Reductase AdvReac Unknown Verified 04/20/25 19:23 Inhibitor (Bjprksp-Zay-Nua Reductase Inhibitor) Family History Mother COPD (chronic obstructive pulmonary disease) Father Heart disease Surgical History History of liver biopsy History of brain shunt Hx of right cataract extraction Hx of left cataract extraction History of cardioversion (06/11/19) History of hip replacement, total History of eye surgery History of vasectomy History of hernia repair History of colon resection History of back surgery History of appendectomy Social History Smoking Status: Never smoker alcohol intake: never ROS ROS ED Constitutional Constitutional ED: Reports as per HPI and headache(s); Denies chills or fever(s) Cardiovascular Cardiovascular: Denies chest pain or dyspnea Respiratory/Chest Respiratory/Chest: Denies dyspnea Gastrointestinal Gastrointestinal: Reports abdominal pain, constipation and diarrhea; Denies nausea or vomiting Genitourinary Genitourinary ED: Reports burning urination and dysuria; Denies flank pain, hematuria or urinary frequency Musculoskeletal Musculoskeletal: Reports arthralgias; Denies back pain or myalgias Hematologic/Lymphatic Hematologic/Lymphatic: Reports none Allergic/Immunologic Allergic/Immunologic ED: Reports none EXAM Physical Exam Const Vital Signs: 04/20/25 19:22 04/20/25 19:48 04/20/25 20:07 Temperature 97.1 F L Temperature Source Temporal Pulse Rate 84 79 66 Respiratory Rate 14 16 16 Blood Pressure 118/102 H 168/89 H 128/7 (more content not included)... Normal [facility] Urinalysis, Completeon 04-20 EPI,SQUAMOUS 0-5 SEEN Normal 0-5 [facility] Comment on above: Order Comment: BRANDON TER SPECIMEN Performed By: #### L 400.0001 #### [facility] [address] [place], [address] RBC 0-5 SEEN Normal 0-5 [facility] Comment on above: Order Comment: BRANDON TER SPECIMEN Performed By: #### L 400.0001 #### [facility] [address] [place], [address] WBC 0-5 SEEN Normal 0-5 [facility] Comment on above: Order Comment: BRANDON TER SPECIMEN Performed By: #### L 400.0001 #### [facility] [address] [place], [address] BACTERIA 0 SEEN Normal None Seen [facility] Comment on above: Order Comment: BRANDON TER SPECIMEN Performed By: #### L 400.0001 #### [facility] [address] [place], [address] Mucus Ql (Urine sed) 0 SEEN Normal [facility] Comment on above: Order Comment: BRANDON TER SPECIMEN Performed By: #### L 400.0001 #### [facility] [address] [place], [address] Absolute lymphocyte countOrd ered By: Gabirela Crews on 11-27-2024 Lymphocytes Auto (Unsp spec) [#/Vol] 1.50 10*3/uL 0.83-4.51 [facility] Absolute neutrophil countOrd ered By: Gabriela Crews on 11-27-2024 Neutrophils (Bld) [#/Vol] 5.3 10*3/uL 2.0-7.7 [facility] Anion gap in Serum or Plasma Ordered By: Gabriela Crews on 11-27-2024 Anion gap [Moles/Vol] 12 mmol/L 5-15 [facility] Automated lymphocyte count a s percentage of total leukocytesOrdered By: Gabriela Crews on 11-27-2024 Lymphocytes/100 WBC Auto (Unsp spec) 19.9 % 19-41 [facility] BUN/creatinine ratioOrdered By: Gabriela Crews on 11-27-2024 Urea nitrogen/Creatinine [Mass ratio] 25.0 mg/mg High 10-20 [facility] Basophil percentageOrdered B y: Gabriela Crews on 11-27-2024 Basophils/100 WBC (Bld) 0.4 % 0-1 [facility] Bilirubin, totalOrdered By: Gabriela Crews on 11-27-2024 Bilirubin [Mass/Vol] 0.99 mg/dL 0.00-1.30 [facility] CBC W/Diff, Automatedon Absolute Lymph 1.50 X10 3/uL Normal 0.83-4.51 [facility] Comment on above: Performed By: #### L 503.6550, L500.4050, L100.0100 #### [facility] [address] [place], [address] Absolute Neut 5.3 X10 3/uL Normal 2.0-7.7 [facility] Comment on above: Performed By: #### L 503.6550, L500.4050, L100.0100 #### [facility] [address] [place], [address] Basophils/100 WBC (Bld) 0.4 % Normal 0-1 [facility] Comment on above: Performed By: #### L 503.6550, L500.4050, L100.0100 #### [facility] [address] [place], [address] Eosinophils/100 WBC (Bld) 1.9 % Normal 0-5 [facility] Comment on above: Performed By: #### L 503.6550, L500.4050, L100.0100 #### [facility] [address] [place], [address] Erythrocyte distribution width (RBC) [Ratio] 13.2 % Normal 11.6-14.6 [facility] Comment on above: Performed By: #### L 503.6550, L500.4050, L100.0100 #### [facility] [address] [place], [address] Hematocrit (Bld) [Volume fraction] 44.7 % Normal 40-54 [facility] Comment on above: Performed By: #### L 503.6550, L500.4050, L100.0100 #### [facility] [address] [place], [address] Hemoglobin (Bld) [Mass/Vol] 16.5 g/dL Normal 13.0-16.5 [facility] Comment on above: Performed By: #### L 503.6550, L500.4050, L100.0100 #### [facility] [address] [place], [address] IG% 0.300 Normal 0.0-0.9 [facility] Comment on above: Result Comment: IG% - Immature Granulocytes (promyelocytes, myelocytes and metamyelocytes) > 1% indicates that a LEFT SHIFT is Present. Performed By: #### L 503.6550, L500.4050, L100.0100 #### [facility] [address] [place], [address] Lymphocytes/100 WBC (Bld) 19.9 % Normal 19-41 [facility] Comment on above: Performed By: #### L 503.6550, L500.4050, L100.0100 #### [facility] [address] [place], [address] MCH (RBC) [Entitic mass] 34.2 pg High 27.0-32.0 [facility] Comment on above: Performed By: #### L 503.6550, L500.4050, L100.0100 #### [facility] [address] [place], [address] MCHC (RBC) [Mass/Vol] 36.9 g/dL High 32-36 [facility] Comment on above: Performed By: #### L 503.6550, L500.4050, L100.0100 #### [facility] [address] [place], [address] MCV (RBC) [Entitic vol] 92.5 fL Normal 80-94 [facility] Comment on above: Performed By: #### L 503.6550, L500.4050, L100.0100 #### [facility] [address] [place], [address] Monocytes/100 WBC (Bld) 7.7 % Normal 0-10 [facility] Comment on above: Performed By: #### L 503.6550, L500.4050, L100.0100 #### [facility] [address] [place], [address] Neutrophils/100 WBC (Bld) 69.8 % Normal 47-70 [facility] Comment on above: Performed By: #### L 503.6550, L500.4050, L100.0100 #### [facility] [address] [place], [address] Nucleated RBC (Bld) [#/Vol] 0 10*3/uL Normal 0-5 [facility] Comment on above: Performed By: #### L 503.6550, L500.4050, L100.0100 #### [facility] [address] [place], [address] Platelet mean volume (Bld) [Entitic vol] 10.6 fL Normal 6.2-12.0 [facility] Comment on above: Performed By: #### L 503.6550, L500.4050, L100.0100 #### [facility] [address] [place], [address] Platelets (Bld) [#/Vol] 196 10*3/uL Normal 150-450 [facility] Comment on above: Performed By: #### L 503.6550, L500.4050, L100.0100 #### [facility] [address] [place], [address] RBC (Bld) [#/Vol] 4.83 10*6/uL Normal 4.6-6.2 [facility] Comment on above: Performed By: #### L 503.6550, L500.4050, L100.0100 #### [facility] [address] [place], [address] RDW SD 44.9 fl High 35.1-43.9 [facility] Comment on above: Performed By: #### L 503.6550, L500.4050, L100.0100 #### [facility] [address] [place], [address] WBC (Bld) [#/Vol] 7.6 10*3/uL Normal 4.4-11.0 [facility] Comment on above: Performed By: #### L 503.6550, L500.4050, L100.0100 #### [facility] [address] [place], [address] Carbon dioxide, total [Moles /volume] in Central venous bloodOrdered By: Gabriela Mars on 11-27-2024 CO2 [Moles/Vol] 22.9 mmol/L 21.0-32.0 [facility] Chloride assayOrdered By: Peewee Crews on 11-27-2024 Chloride [Moles/Vol] 99 mmol/L 98-108 [facility] Comprehensive Metabolic Prof ilon 11-27-2024 Albumin [Mass/Vol] 4.4 g/dL Normal 3.4-4.8 [facility] Comment on above: Performed By: #### L 503.6550, L500.4050, L100.0100 #### [facility] [address] [place], [address] Albumin/Globulin [Mass ratio] 1.3 {ratio} Normal 0.9-2.4 [facility] Comment on above: Performed By: #### L 503.6550, L500.4050, L100.0100 #### [facility] [address] [place], [address] ALK PHOS 100 U/L Normal 40-129 [facility] Comment on above: Performed By: #### L 503.6550, L500.4050, L100.0100 #### [facility] [address] [place], [address] ALT [Catalytic activity/Vol] 38 U/L Normal <=46 [facility] Comment on above: Performed By: #### L 503.6550, L500.4050, L100.0100 #### [facility] [address] [place], [address] AST [Catalytic activity/Vol] 38 U/L Normal <=37 [facility] Comment on above: Performed By: #### L 503.6550, L500.4050, L100.0100 #### [facility] [address] [place], [address] Bilirubin [Mass/Vol] 0.99 mg/dL Normal 0.00-1.30 [facility] Comment on above: Performed By: #### L 503.6550, L500.4050, L100.0100 #### [facility] [address] [place], [address] BUN/CRE 25.0 RATIO High 10-20 [facility] Comment on above: Performed By: #### L 503.6550, L500.4050, L100.0100 #### [facility] [address] [place], [address] Calcium [Mass/Vol] 9.9 mg/dL Normal 7.6-11.0 [facility] Comment on above: Performed By: #### L 503.6550, L500.4050, L100.0100 #### [facility] [address] [place], [address] Chloride [Moles/Vol] 99 mmol/L Normal 98-108 [facility] Comment on above: Performed By: #### L 503.6550, L500.4050, L100.0100 #### [facility] [address] [place], [address] CO2 [Moles/Vol] 22.9 mmol/L Normal 21.0-32.0 [facility] Comment on above: Performed By: #### L 503.6550, L500.4050, L100.0100 #### [facility] [address] [place], [address] Creatinine [Mass/Vol] 0.94 mg/dL Normal 0.70-1.20 [facility] Comment on above: Performed By: #### L 503.6550, L500.4050, L100.0100 #### [facility] [address] [place], [address] ECRCL 104.28 ml/min Normal 50-250 [facility] Comment on above: Performed By: #### L 503.6550, L500.4050, L100.0100 #### [facility] [address] [place], [address] GAP 12 Normal 5-15 [facility] Comment on above: Performed By: #### L 503.6550, L500.4050, L100.0100 #### [facility] [address] [place], [address] GFR/1.73 sq M.predicted among non-blacks MDRD (S/P/Bld) [Vol rate/Area] 86 mL/min/{1.73_m2} Normal >60 [facility] Comment on above: Result Comment: mL/m in/1.73m2 CKD-EPI Creatinine Equation (2020) Performed By: #### L 503.6550, L500.4050, L100.0100 #### [facility] [address] [place], [address] Globulin (S) [Mass/Vol] 3.3 g/dL Normal 2.2-4.2 [facility] Comment on above: Performed By: #### L 503.6550, L500.4050, L100.0100 #### [facility] [address] [place], [address] Glucose [Mass/Vol] 125 mg/dL High 70-99 [facility] Comment on above: Performed By: #### L 503.6550, L500.4050, L100.0100 #### [facility] [address] [place], [address] Potassium [Moles/Vol] 4.0 mmol/L Normal 3.3-5.1 [facility] Comment on above: Performed By: #### L 503.6550, L500.4050, L100.0100 #### [facility] [address] [place], [address] Sodium [Moles/Vol] 134 mmol/L Normal 133-145 [facility] Comment on above: Performed By: #### L 503.6550, L500.4050, L100.0100 #### [facility] [address] [place], [address] T PROT 7.7 g/dL Normal 5.9-8.4 [facility] Comment on above: Performed By: #### L 503.6550, L500.4050, L100.0100 #### [facility] [address] [place], [place], [address] Urea nitrogen [Mass/Vol] 24 mg/dL High 4-19 [facility] Comment on above: Performed By: #### L 503.6550, L500.4050, L100.0100 #### [facility] [address] [place], [place], [id number] (820) Eosinophil percentageOrdered By: Gabriela Crews on 11-27-2024 Eosinophils/100 WBC (Bld) 1.9 % 0-5 [facility] Erythrocyte distribution wid th ratioOrdered By: Gabriela Crews on 11-27-2024 Erythrocyte distribution width (RBC) [Ratio] 13.2 % 11.6-14.6 [facility] Erythrocyte distribution wid th standard deviationOrdered By: Gabriela Crews on 11-27-2024 Erythrocyte distribution width (RBC) [Ratio] 44.9 fl High 35.1-43.9 [facility] Ferritinon 11-27-2024 Ferritin [Mass/Vol] 153 ng/mL Normal 37-417 [facility] Comment on above: Performed By: #### L 503.6550, L500.4050, L100.0100 #### [facility] [address] [place], [place], [address] Glomerular filtration rate ( GFR) estimation/1.73 sq m using serum, plasma, or whole bOrdered By: Gabriela Crews on 11-27-2024 GFR/1.73 sq M.predicted among non-blacks MDRD (S/P/Bld) [Vol rate/Area] 86 mL/min/{1.73_m2} >60 [facility] Comment on above: mL/min/1.73m2 CKD-EP I Creatinine Equation (2020) Hematocrit Auto (Bld) [Volum e fraction]Ordered By: Gabriela Crews on 11-27-2024 Hematocrit (Bld) [Volume fraction] 44.7 % 40-54 [facility] Hemoglobin measurementOrdere d By: Gabriela Crews on 11-27-2024 Hemoglobin (Bld) [Mass/Vol] 16.5 g/dL 13.0-16.5 [facility] Immature granulocytes/100 WB C Auto (Bld)Ordered By: Gabriela Crews on 11-27-2024 Immature granulocytes/100 WBC (Bld) 0.300 % 0.0-0.9 [facility] Comment on above: IG% - Immature Granu locytes (promyelocytes, myelocytes and metamyelocytes) > 1% indicates that a LEFT SHIFT is Present. Laboratory - Chemistry and C hemistry - challengeOrdered By: Gabriela Crews on 11-27-2024 AST [Catalytic activity/Vol] 38 U/L <38 [facility] MCV (mean corpuscular volume ) determinationOrdered By: Gabriela Crews on 11-27-2024 MCV (RBC) [Entitic vol] 92.5 fL 80-94 [facility] Mean corpuscular hemoglobin (MCH) determinationOrdered By: Gabriela Crews on 11-27-2024 MCH (RBC) [Entitic mass] 34.2 pg High 27.0-32.0 [facility] Mean corpuscular hemoglobin concentration (MCHC) determinationOrdered By: Gabriela Crews on 11-27-2024 MCHC (RBC) [Mass/Vol] 36.9 g/dL High 32-36 [facility] Mean platelet volume determi nationOrdered By: Gabriela Crews on 11-27-2024 Platelet mean volume (Bld) [Entitic vol] 10.6 fL 6.2-12.0 [facility] Monocyte percentageOrdered B y: Gabriela Crews on 11-27-2024 Monocytes/100 WBC (Bld) 7.7 % 0-10 [facility] Neutrophil percentageOrdered By: Garbiela Crews on 11-27-2024 Neutrophils/100 WBC (Bld) 69.8 % 47-70 [facility] Nucleated red blood cell per centageOrdered By: Gabriela Crews on 11-27-2024 Nucleated RBC/100 WBC (Bld) [Ratio] 0 % 0-5 [facility] Oncology Visit Reporton 06-0 Oncology Visit Report [facility] [address] [place] [address] OFFICE VISIT Date of Service: 11/27/24 1417 MR#: [id number] Acct: [id number] Name: EDWIGE MAHMOOD Rep #: [id number] : 1950 From: Gabriela Crews NP [employer] -C Age/Sex: 74/M Location: [facility] [place] Status: Signed HPI Subjective Date of Service [...] bowel habits, and swelling/pain of his extremities. [facility] Medical History Acute otitis externa of left [...] (Intermediate, Verified 11/27/24 14:22) Pain in joints Lpwropv-ZZK-SpO Reductase Inhibitor (Xbbtvdl-Yne-Bts Reductase Inhibitor) Adverse Reaction (Verified 11/27/24 14:22) Unknown Medications ???Medication ???Instructions ???Recorded ???Confirmed ???Type kgojxhfa-jat-dhwkc acid 0.4 1 ea PO DAILY SUPPLEMENT [...] Code O (more content not included)... Normal [facility] Platelet countOrdered By: Peewee Crews on 11-27-2024 Platelets (Bld) [#/Vol] 196 10*3/uL 150-450 [facility] Potassium measurement (mass/ volume)Ordered By: Gabriela Crews on 11-27-2024 Potassium (Unsp spec) [Mass/Vol] 4.0 mmol/L 3.3-5.1 [facility] RBC Auto (Bld) [#/Vol]Ordere d By: Gabriela Crews on 11-27-2024 RBC (Bld) [#/Vol] 4.83 10*6/uL 4.6-6.2 [facility] Serum creatinine measurement (mass/volume)Ordered By: Gabriela Crews on 11-27-2024 Creatinine [Mass/Vol] 0.94 mg/dL 0.70-1.20 [facility] Serum globulin measurementOr dered By: Gabriela Crews on 11-27-2024 Globulin (S) [Mass/Vol] 3.3 g/dL 2.2-4.2 [facility] Serum glucose measurement (m ass/volume)Ordered By: Gabriela Crews on 11-27-2024 Glucose [Mass/Vol] 125 mg/dL High 70-99 [facility] Serum or plasma alanine turcios otransferase (ALT) measurementOrdered By: Gabriela Crews on 11-27-2024 ALT [Catalytic activity/Vol] 38 U/L <47 [facility] Serum or plasma albumin liudmila urement (mass/volume)Ordered By: Gabriela Crews on 11-27-2024 Albumin [Mass/Vol] 4.4 g/dL 3.4-4.8 [facility] Serum or plasma albumin/glob ulin mass ratioOrdered By: Gabriela Crews on 11-27-2024 Albumin/Globulin [Mass ratio] 1.3 {ratio} 0.9-2.4 [facility] Serum or plasma alkaline christel sphatase measurementOrdered By: Gabriela Crews on 11-27-2024 ALP [Catalytic activity/Vol] 100 U/L 40-129 [facility] Serum or plasma calcium liudmila urement (mass/volume)Ordered By: Gabriela Crews on 11-27-2024 Calcium [Mass/Vol] 9.9 mg/dL 7.6-11.0 [facility] Serum or plasma ferritin ash surement (mass/volume)Ordered By: Gabriela Crews on 11-27-2024 Ferritin [Mass/Vol] 153 ng/mL 37-417 [facility] Serum or plasma urea nitroge n measurement (mass/volume)Ordered By: Gabriela Crews on 11-27-2024 Urea nitrogen [Mass/Vol] 24 mg/dL High 4-19 [facility] Sodium levelOrdered By: Gabriela Crews on 11-27-2024 Sodium [Moles/Vol] 134 mmol/L 133-145 [facility] Total proteinOrdered By: Ryan Crews on 11-27-2024 Protein [Mass/Vol] 7.7 g/dL 5.9-8.4 [facility] White blood cell (WBC) count Ordered By: Gabriela Crews on 11-27-2024 WBC (Bld) [#/Vol] 7.6 10*3/uL 4.4-11.0 [facility] Prothrombin Time w/INRon INR Coag (PPP) [Relative time] 2.2 {INR} Normal [facility] Comment on above: Performed By: #### L 503.6577, L500.4050, L100.0100 #### [facility] [address] [place], [place] [address], [address] PT Coag (PPP) [Time] 25.0 s High 11.7-14.9 [facility] Comment on above: Performed By: #### L 503.6550, L500.4050, L100.0100 #### [facility] [address] [place], [address] Prothrombin Time w/INRon INR Coag (PPP) [Relative time] 2.3 {INR} Normal [facility] Comment on above: Performed By: #### L 300.3900 #### [facility] [address] [place], [address] PT Coag (PPP) [Time] 25.5 s High 11.7-14.9 [facility] Comment on above: Performed By: #### L 300.3900 #### [facility] [address] [place], [address] Prothrombin Time w/INRon INR Coag (PPP) [Relative time] 2.1 {INR} Normal [facility] Comment on above: Performed By: #### L 300.3900 #### [facility] [address] [place], [address] PT Coag (PPP) [Time] 23.7 s High 11.7-14.9 [facility] Comment on above: Performed By: #### L 300.3900 #### [facility] [address] [place], [address] Urgent Care Visit Reporton 1 08-20-2023 Urgent Care Visit Report [facility] [address] , [address] [place], [place] [address] OFFICE VISIT Date of Service: 06/19/24 MR#: [id number] Acct: [id number] Name: EDWIGE MAHMOOD [place] Rep #: [id number] : 1950 Provider: CONNER Wilson Age/Sex: 73/M Location: [facility] Status: Signed Intake Vital Signs 05/30/24 15:27 [...] (Intermediate, Verified 06/19/24 08:45) Pain in joints Airblzb-LYK-XsM Reductase Inhibitor (Imzcudi-Igy-Des Reductase Inhibitor) Adverse Reaction (Verified 06/19/24 08:45) Unknown Medications ???Medication ???Instructions ???Recorded ???Confirmed ???Type fjlxwcar-uke-nggvl acid 0.4 1 ea PO DAILY SUPPLEMENT [...] coughing up phlegm and blowing green snot. [facility] Medical History Acute otitis externa of left [...] Chief Complaint: Cough and congestion Details: EDWIGE MAHMOOD, is a 73 M who presents to [...] Off vis,est,level (more content not included)... Normal [facility] Prothrombin Time w/INRon INR Coag (PPP) [Relative time] 4.1 {INR} Invalid Interpretation Code [facility] Comment on above: Result Comment: CRIT ICAL VALUE CALLED TO ROSEY TANG ([facility]) 06/14/24 [address] RESULTS READ BACK BY SAME. Performed By: #### L 503.6550, L500.4050, L100.0100 #### [facility] [address] [place], [address] PT Coag (PPP) [Time] 39.0 s High 11.7-14.9 [facility] Comment on above: Performed By: #### L 503.6550, L500.4050, L100.0100 #### [facility] [address] [place], [address] Abdomen Limitedon 06-06-2024 Abdomen Limited [facility] [address] [place] [address] Abdomen Limited MR#: [id number] Acct: [id number] Name: EDWIGE MAHMOOD Rep #: [id number] : 1950 M 73 From: Triston Flower MD PCP: Dr. Ada Alexander, DO Status: REG CLI Study: Abdomen Limited Date of Exam: 06/06/24 Exam# [id number] Ordering Dr: Gabriela Crews QUALITY ASSURANCE PRACTICE MANAGER QUALITY ASSURANCE PRACTICE MANAGER -C 62:[id number] EXAM: US ABDOMEN LIMITED, RIGHT UPPER QUADRANT [...] CC: DEVAUGHN Crews; Dr. Ada Alexander DO [employer] Line [employer]: Signed Normal [facility] CBC W/Diff, Automatedon 12-0 Absolute Lymph 1.59 X10 3/uL Normal 0.83-4.51 [facility] Comment on above: Performed By: #### L 503.6550, L500.4050, L100.0100 #### [facility] [address] [place], [address] Absolute Neut 4.6 X10 3/uL Normal 2.0-7.7 [facility] Comment on above: Performed By: #### L 503.6550, L500.4050, L100.0100 #### [facility] [address] [place], [address] Basophils/100 WBC (Bld) 0.3 % Normal 0-1 [facility] Comment on above: Performed By: #### L 503.6550, L500.4050, L100.0100 #### [facility] [address] [place], [address] Eosinophils/100 WBC (Bld) 2.1 % Normal 0-5 [facility] Comment on above: Performed By: #### L 503.6550, L500.4050, L100.0100 #### [facility] [address] [place], [address] Erythrocyte distribution width (RBC) [Ratio] 13.1 % Normal 11.6-14.6 [facility] Comment on above: Performed By: #### L 503.6550, L500.4050, L100.0100 #### [facility] [address] [place], [address] Hematocrit (Bld) [Volume fraction] 43.7 % Normal 40-54 [facility] Comment on above: Performed By: #### L 503.6550, L500.4050, L100.0100 #### [facility] [address] [place], [address] Hemoglobin (Bld) [Mass/Vol] 15.8 g/dL Normal 13.0-16.5 [facility] Comment on above: Performed By: #### L 503.6550, L500.4050, L100.0100 #### [facility] [address] [place], [address] IG% 0.400 Normal 0.0-0.9 [facility] Comment on above: Result Comment: IG% - Immature Granulocytes (promyelocytes, myelocytes and metamyelocytes) > 1% indicates that a LEFT SHIFT is Present. Performed By: #### L 503.6550, L500.4050, L100.0100 #### [facility] [address] [place], [address] Lymphocytes/100 WBC (Bld) 22.8 % Normal 19-41 [facility] Comment on above: Performed By: #### L 503.6550, L500.4050, L100.0100 #### [facility] [address] [place], [address] MCH (RBC) [Entitic mass] 33.8 pg High 27.0-32.0 [facility] Comment on above: Performed By: #### L 503.6550, L500.4050, L100.0100 #### [facility] [address] [place], [address] MCHC (RBC) [Mass/Vol] 36.2 g/dL High 32-36 [facility] Comment on above: Performed By: #### L 503.6550, L500.4050, L100.0100 #### [facility] [address] [place], [address] MCV (RBC) [Entitic vol] 93.4 fL Normal 80-94 [facility] Comment on above: Performed By: #### L 503.6550, L500.4050, L100.0100 #### [facility] [address] [place], [address] Monocytes/100 WBC (Bld) 8.0 % Normal 0-10 [facility] Comment on above: Performed By: #### L 503.6550, L500.4050, L100.0100 #### [facility] [address] [place], [address] Neutrophils/100 WBC (Bld) 66.4 % Normal 47-70 [facility] Comment on above: Performed By: #### L 503.6550, L500.4050, L100.0100 #### [facility] [address] [place], [address] Nucleated RBC (Bld) [#/Vol] 0 10*3/uL Normal 0-5 [facility] Comment on above: Performed By: #### L 503.6550, L500.4050, L100.0100 #### [facility] [address] [place], [address] Platelet mean volume (Bld) [Entitic vol] 10.9 fL Normal 6.2-12.0 [facility] Comment on above: Performed By: #### L 503.6550, L500.4050, L100.0100 #### [facility] [address] [place], [address] Platelets (Bld) [#/Vol] 173 10*3/uL Normal 150-450 [facility] Comment on above: Performed By: #### L 503.6550, L500.4050, L100.0100 #### [facility] [address] [place], [address] RBC (Bld) [#/Vol] 4.68 10*6/uL Normal 4.6-6.2 [facility] Comment on above: Performed By: #### L 503.6550, L500.4050, L100.0100 #### [facility] [address] [place], [address] RDW SD 44.5 fl High 35.1-43.9 [facility] Comment on above: Performed By: #### L 503.6550, L500.4050, L100.0100 #### [facility] [address] [place], [address] WBC (Bld) [#/Vol] 7.0 10*3/uL Normal 4.4-11.0 [facility] Comment on above: Performed By: #### L 503.6550, L500.4050, L100.0100 #### [facility] [address] [place], [address] Comprehensive Metabolic Prof hermelindo 05-30-2024 Albumin [Mass/Vol] 3.7 g/dL Normal 3.2-5.0 [facility] Comment on above: Order Comment: 1 Performed By: #### L 503.6550, L500.4050, L100.0100 #### [facility] [address] [place], [address] Albumin/Globulin [Mass ratio] 0.9 {ratio} Normal 0.9-2.4 [facility] Comment on above: Order Comment: 1 Performed By: #### L 503.6550, L500.4050, L100.0100 #### [facility] [address] [place], [address] ALK P 115 U/L Normal 45-117 [facility] Comment on above: Order Comment: 1 Performed By: #### L 503.6550, L500.4050, L100.0100 #### [facility] [address] [place], [address] ALT [Catalytic activity/Vol] 73 U/L High 16-61 [facility] Comment on above: Order Comment: 1 Performed By: #### L 503.6550, L500.4050, L100.0100 #### [facility] [address] [place], [address] AST [Catalytic activity/Vol] 62 U/L High 15-37 [facility] Comment on above: Order Comment: 1 Result Comment: Slig ht Hemolysis, Result may be falsely increased. Performed By: #### L 503.6550, L500.4050, L100.0100 #### [facility] [address] [place], [address] Bilirubin [Mass/Vol] 0.70 mg/dL Normal 0.20-1.00 [facility] Comment on above: Order Comment: 1 Result Comment: For patients on eltrombopag therapy, use of Dimension [place] TBIL is not recommended. Performed By: #### L 503.6550, L500.4050, L100.0100 #### [facility] [address] [place], [address] BUN/CRE 27.4 RATIO High 10-20 [facility] Comment on above: Order Comment: 1 Performed By: #### L 503.6550, L500.4050, L100.0100 #### [facility] [address] [place], [address] CA,Total 9.2 mg/dL Normal 8.5-10.1 [facility] Comment on above: Order Comment: 1 Performed By: #### L 503.6550, L500.4050, L100.0100 #### [facility] [address] [place], [address] Chloride [Moles/Vol] 105 mmol/L Normal 98-107 [facility] Comment on above: Order Comment: 1 Performed By: #### L 503.6550, L500.4050, L100.0100 #### [facility] [address] [place], [address] CO2 [Moles/Vol] 25.0 mmol/L Normal 21.0-32.0 [facility] Comment on above: Order Comment: 1 Performed By: #### L 503.6550, L500.4050, L100.0100 #### [facility] [address] [place], [address] Creatinine [Mass/Vol] 0.91 mg/dL Normal 0.70-1.30 [facility] Comment on above: Order Comment: 1 Result Comment: The validity of the calculated GFR GFRAA in patients over 70 years has not been determined. Clinical correlation is essential. Performed By: #### L 503.6550, L500.4050, L100.0100 #### [facility] [address] [place], [address] ECRCL 109.30 ml/min Normal [facility] Comment on above: Order Comment: 1 Performed By: #### L 503.6550, L500.4050, L100.0100 #### [facility] [address] [place], [address] EST GFR - AA 105 mL/min Normal >60 [facility] Comment on above: Order Comment: 1 Result Comment: Afri can Turkish GFR Calc Performed By: #### L 503.6550, L500.4050, L100.0100 #### [facility] [address] [place], [address] GAP 6 Normal 5-15 [facility] Comment on above: Order Comment: 1 Performed By: #### L 503.6550, L500.4050, L100.0100 #### [facility] [address] [place], [address] GFR/1.73 sq M.predicted among non-blacks MDRD (S/P/Bld) [Vol rate/Area] 87 mL/min/{1.73_m2} Normal >60 [facility] Comment on above: Order Comment: 1 Result Comment: Non- GFR Calc Performed By: #### L 503.6550, L500.4050, L100.0100 #### [facility] [address] [place], [address] Globulin (S) [Mass/Vol] 4.0 g/dL Normal 2.2-4.2 [facility] Comment on above: Order Comment: 1 Performed By: #### L 503.6550, L500.4050, L100.0100 #### [facility] [address] [place], [address] Glucose [Mass/Vol] 162 mg/dL High 74-106 [facility] Comment on above: Order Comment: 1 Result Comment: Fast ing Glucose result greater than or equal to 126 mg/dL suggests DIABETES MELLITUS per A.D.A. criteria. Performed By: #### L 503.6550, L500.4050, L100.0100 #### [facility] [address] [place], [address] Potassium [Moles/Vol] 4.0 mmol/L Normal 3.5-5.1 [facility] Comment on above: Order Comment: 1 Result Comment: Slig ht Hemolysis, Result may be falsely increased. Performed By: #### L 503.6550, L500.4050, L100.0100 #### [facility] [address] [place], [address] Sodium [Moles/Vol] 137 mmol/L Normal 136-145 [facility] Comment on above: Order Comment: 1 Performed By: #### L 503.6550, L500.4050, L100.0100 #### [facility] [address] [place], [address] T PROT 7.7 g/dL Normal 6.4-8.2 [facility] Comment on above: Order Comment: 1 Performed By: #### L 503.6550, L500.4050, L100.0100 #### [facility] [address] [place], [address] Urea nitrogen [Mass/Vol] 25 mg/dL High 7-18 [facility] Comment on above: Order Comment: 1 Performed By: #### L 503.6550, L500.4050, L100.0100 #### [facility] [address] [place], [address] Ferritinon 05-30-2024 Ferritin [Mass/Vol] 156 ng/mL Normal 26-388 [facility] Comment on above: Order Comment: 1 Performed By: #### L 503.6550, L500.4050, L100.0100 #### [facility] [address] [place], [address] LDHon 05-30-2024 LDH 258 U/L High 87-241 [facility] Comment on above: Order Comment: 1 Result Comment: Slig ht Hemolysis, Result may be falsely increased. Performed By: #### L 503.6550, L500.4050, L100.0100 #### [facility] [address] [place], [address] Lactate dehydrogenase (LDH) measurementOrdered By: Roque Kang on 05-30-2024 LDH [Catalytic activity/Vol] 258 U/L High 87-241 [facility] Comment on above: Slight Hemolysis, Re sult may be falsely increased. Oncology Visit Reporton Oncology Visit Report [facility] [address] [place] [address] OFFICE VISIT Date of Service: 05/30/24 1406 MR#: [id number] Acct: [id number] Name: EDWIGE MAHMOOD Coral Rep #: [id number] : 1950 From: Gabriela Crews NP QUALITY ASSURANCE PRACTICE MANAGER -C Age/Sex: 73/M Location: [facility] Status: Signed HPI Subjective Date of Service [...] bowel habits, and swelling/pain of his extremities. [facility] Medical History Acute otitis externa of left [...] (Intermediate, Verified 05/30/24 14:10) Pain in joints Nxrywdw-TMR-MjZ Reductase Inhibitor (Skiwkax-Myw-Zzd Reductase Inhibitor) Adverse Reaction (Verified 05/30/24 14:10) Unknown Medications ???Medication ???Instructions ???Recorded ???Confirmed ???Type lrdrusqo-yjw-czgxn acid 0.4 1 ea PO DAILY SUPPLEMENT [...] no rash (more content not included)... Normal [facility] Prothrombin Time w/INRon INR Coag (PPP) [Relative time] 2.7 {INR} Normal [facility] Comment on above: Performed By: #### L 503.6550, L500.4050, L100.0100 #### [facility] [address] [place], [address] PT Coag (PPP) [Time] 28.8 s High 11.7-14.9 [facility] Comment on above: Performed By: #### L 503.6550, L500.4050, L100.0100 #### [facility] [address] [place], [address] Lipid Profileon 05-11-2024 Cholesterol [Mass/Vol] 226 mg/dL High 200 [facility] Comment on above: Result Comment: <200 mg/dL Desirable 200-240 mg/dL Borderline >240 mg/dL High Risk Performed By: #### L 501.9910, L300.3900, L500.4100 #### [facility] [address] [place], [address] Cholesterol in HDL [Mass/Vol] 35 mg/dL Low [facility] Comment on above: Result Comment: The drugs N-Acetylcysteine and Metamizole may falsely depress this assay. Reference Range HDL <40 mg/dL Low HDL Cholesterol HDL >or= 60 mg/dL High HDL Cholesterol Performed By: #### L 501.9910, L300.3900, L500.4100 #### [facility] [address] [place], [address] Cholesterol in LDL [Mass/Vol] 147 mg/dL High 0-130 [facility] Comment on above: Performed By: #### L 501.9910, L300.3900, L500.4100 #### [facility] [address] [place], [address] Cholesterol in VLDL [Mass/Vol] 44 mg/dL High 5-40 [facility] Comment on above: Performed By: #### L 501.9910, L300.3900, L500.4100 #### [facility] [address] [place], [address] Triglyceride [Mass/Vol] 220 mg/dL High [facility] Comment on above: Result Comment: The drugs N-Acetylcysteine and Metamizole may falsely depress this assay. Serum Triglycerides Reference Interval Normal <150 mg/dL Borderline high 150 - 199 mg/dL High 200 - 499 mg/dL Very High > or = 500 mg/dL Performed By: #### L 501.9910, L300.3900, L500.4100 #### [facility] [address] [place], [address] PSA,Total - Annual Screenon 05-11-2024 PSA,TOT SCREEN 2.56 ng/mL Normal 0.00-4.00 [facility] Comment on above: Result Comment: This test was performed using the TPSA assay method for the [facility] chemistry system. Values obtained with different assay methods cannot be used interchangably. When changing PSA assays in the course of monitoring a patient, additional sequential testing should be carried out to confirm baseline values. Performed By: #### L 501.9910, L300.3900, L500.4100 #### [facility] [address] [place], [address] Prothrombin Time w/INRon INR Coag (PPP) [Relative time] 2.6 {INR} Normal [facility] Comment on above: Performed By: #### L 501.9910, L300.3900, L500.4100 #### [facility] [address] [place], [address] PT Coag (PPP) [Time] 27.5 s High 11.7-14.9 [facility] Comment on above: Performed By: #### L 501.9910, L300.3900, L500.4100 #### [facility] [address] [place], [address] Microalb:Creat Ratio,Random URon 05-07-2024 Creatinine [Mass/Vol] 61.00 mg/dL Normal NO RAN GE EST. [facility] Comment on above: Performed By: #### L 502.0250 #### [facility] [address] [place], [address] MALB:CRE 40.0 mg/g CRE High <30 mg/g CRE [facility] Comment on above: Performed By: #### L 502.0250 #### [facility] [address] [place], [address] MICROALBUMIN,UR 24.4 mg/L Normal NO RANGE EST. [facility] Comment on above: Performed By: #### L 502.0250 #### [facility] [address] [place], [address] Laboratory - CoagulationOrde red By: Latoya Wadsworth on 10-20-2023 INR Coag (Bld) [Relative time] 1.5 {INR} [facility] PT Coag (PPP) [Time] 18.3 s 11.7-14.9 [facility] - CoagulationOrde red By: Latoya Wadsworth on 09-22-2023 INR Coag (Bld) [Relative time] 1.2 {INR} [facility] PT Coag (PPP) [Time] 14.8 s 11.7-14.9 [facility] Whole blood hemoglobin A1c/t otal hemoglobin ratio (mass fraction)Ordered By: Yoshi Sanderson on 07-11-2023 HbA1c (Bld) [Mass fraction] % 3.8-5.6 [facility] Comment on above: Normal < 5.7 % Predi abetic 5.7 - 6.4 % Diabetic >or= 6.5 % Please note range changes. Absolute lymphocyte countOrd ered By: Roque Kang on 06-01-2023 Lymphocytes Auto (Unsp spec) [#/Vol] 1.32 10*3/uL 0.83-4.51 [facility] Basophil percentageOrdered B y: Roque Kang on 06-01-2023 Basophils/100 WBC (Bld) 0.5 % 0-1 [facility] Bilirubin [Mass/Vol] 0.70 mg/dL 0.20-1.00 [facility] Comment on above: For patients on eltr ombopag therapy, use of Dimension [place] TBIL is not recommended. Chloride [Moles/Vol] 103 mmol/L 98-107 [facility] Eosinophils/100 WBC (Bld) 1.6 % 0-5 [facility] Glucose [Mass/Vol] 225 mg/dL 74-106 [facility] Comment on above: Glucose result great er than or equal to 200 mg/dLsuggests DIABETES MELLITUS per A.D.A. criteria. LDH [Catalytic activity/Vol] 233 U/L 87-241 [facility] Neutrophils (Bld) [#/Vol] 4.4 10*3/uL 2.0-7.7 [facility] Neutrophils/100 WBC (Bld) 69.2 % 47-70 [facility] Potassium [Moles/Vol] 3.9 mmol/L 3.5-5.1 [facility] Protein [Mass/Vol] 7.6 g/dL 6.4-8.2 [facility] Sodium [Moles/Vol] 135 mmol/L 136-145 [facility] WBC (Bld) [#/Vol] 6.4 10*3/uL 4.4-11.0 [facility] Blood erythrocytes count (nu mber/volume)Ordered By: Roque Kang on 06-01-2023 RBC (Bld) [#/Vol] 4.90 10*6/uL 4.6-6.2 [facility] Blood hemoglobin measurement (mass/volume)Ordered By: Roque Kang on 06-01-2023 Hemoglobin (Bld) [Mass/Vol] 15.9 g/dL 13.0-16.5 [facility] Blood lymphocytes/100 leukoc ytesOrdered By: Roque Kang on 06-01-2023 Lymphocytes/100 WBC (Bld) 20.6 % 19-41 [facility] Blood monocytes/100 leukocyt esOrdered By: Roque Kang on 06-01-2023 Monocytes/100 WBC (Bld) 7.8 % 0-10 [facility] Blood platelet mean volumeOr dered By: Roque Kang on 06-01-2023 Platelet mean volume (Bld) [Entitic vol] 11.3 fL 6.2-12.0 [facility] Determination of erythrocyte mean corpuscular volume (MCV)Ordered By: Roque Kang on 06-01-2023 MCV (RBC) [Entitic vol] 91.2 fL 80-94 [facility] Hematocrit Auto (Bld) [Volum e fraction]Ordered By: Roque Kang on 06-01-2023 Hematocrit (Bld) [Volume fraction] 44.7 % 40-54 [facility] - Chemistry and C hemistry - challengeOrdered By: Roque Kang on 06-01-2023 ALP [Catalytic activity/Vol] 140 U/L 45-117 [facility] ALT [Catalytic activity/Vol] 140 U/L 16-61 [facility] CO2 [Moles/Vol] 25.0 mmol/L 21.0-32.0 [facility] Globulin (S) [Mass/Vol] 3.9 g/dL 2.2-4.2 [facility] Urea nitrogen/Creatinine [Mass ratio] 23.1 mg/mg 10-20 [facility] - Hematology and Cell countsOrdered By: Roque Kang on 06-01-2023 Erythrocyte distribution width (RBC) [Entitic vol] 42.1 fL 35.1-43.9 [facility] Erythrocyte distribution width (RBC) [Ratio] 12.7 % 11.6-14.6 [facility] Immature granulocytes/100 WBC (Bld) 0.300 % 0.0-0.9 [facility] Comment on above: IG% - Immature Granu locytes (promyelocytes, myelocytes and metamyelocytes) > 1% indicates that a LEFT SHIFT is Present. MCH (RBC) [Entitic mass] 32.4 pg 27.0-32.0 [facility] Nucleated RBC/100 WBC (Bld) [Ratio] 0 % 0-5 [facility] MCHC Auto (RBC) [Mass/Vol]Or dered By: Roque Kang on 06-01-2023 MCHC (RBC) [Mass/Vol] 35.6 g/dL 32-36 [facility] No Panel InformationOrdered By: Roque Kang on 06-01-2023 Estimated Creatinine Clearance Calc 76.84 ml/min [facility] Estimated GFR (MDRD) Amer 91 mL/min >60 [facility] Comment on above: GFR Calc Estimated GFR (MDRD) Non-Af Amer 75 mL/min >60 [facility] Comment on above: Non- GFR Calc Platelets bldOrdered By: Piyush Kang on 06-01-2023 Platelets (Bld) [#/Vol] 166 10*3/uL 150-450 [facility] Serum or plasma albumin liudmila urement (mass/volume)Ordered By: Roque Kang on 06-01-2023 Albumin [Mass/Vol] 3.7 g/dL 3.2-5.0 [facility] Serum or plasma albumin/glob ulin mass ratioOrdered By: Roque Kang on 06-01-2023 Albumin/Globulin [Mass ratio] 0.9 {ratio} 0.9-2.4 [facility] Serum or plasma calcium liudmila urement (mass/volume)Ordered By: Roque Kang on 06-01-2023 Calcium [Mass/Vol] 9.2 mg/dL 8.5-10.1 [facility] Serum or plasma creatinine m easurement (mass/volume)Ordered By: Roque Kang on 06-01-2023 Creatinine [Mass/Vol] 1.04 mg/dL 0.70-1.30 [facility] Comment on above: The validity of the calculated GFR & GFRAA in patients over 70 years has not been determined. Clinical correlation is essential. Serum or plasma ferritin ash surement (mass/volume)Ordered By: Roque Kang on 06-01-2023 Ferritin [Mass/Vol] 276 ng/mL 26-388 [facility] Serum or plasma urea nitroge n measurement (mass/volume)Ordered By: Roque Kang on 06-01-2023 Urea nitrogen [Mass/Vol] 24 mg/dL 7-18 [facility] Thin prep Papanicolaou smear with manual screeningOrdered By: Roque Kang on 06-01-2023 Thin prep Papanicolaou smear with manual screening 106 U/L 15-37 [facility] Thin prep Papanicolaou smear with manual screening 7 5-15 [facility] Basophil percentageOrdered B y: Ada Alexander on 03-22-2023 Cholesterol [Mass/Vol] 180 mg/dL <200 [facility] Comment on above: <200 mg/dL Desirable 200-240 mg/dL Borderline >240 mg/dL High Risk Triglyceride [Mass/Vol] 289 mg/dL <199 [facility] Comment on above: The drugs N-Acetylcy steine and Metamizole may falsely depress this assay.Serum Triglycerides Reference Interval Normal <150 mg/dL Borderline high 150 - 199 mg/dL High 200 - 499 mg/dL Very High > or = 500 mg/dL No Panel InformationOrdered By: Ada Alexander on 03-22-2023 Urine Microalbumin/Creatinin e Ratio 13.1 mg/g CRE <30 [facility] Serum or plasma cholesterol in HDL measurement (mass/volume)Ordered By: Ada Alexander on 03-22-2023 Cholesterol in HDL [Mass/Vol] 43 mg/dL >40 [facility] Comment on above: The drugs N-Acetylcy steine and Metamizole may falsely depress this assay. Reference Range HDL <40 mg/dL Low HDL Cholesterol HDL >or= 60 mg/dL High HDL Cholesterol Serum or plasma cholesterol in VLDL measurement (mass/volume)Ordered By: Ada Alexander on 03-22-2023 Cholesterol in VLDL [Mass/Vol] 58 mg/dL 5-40 [facility] Serum or plasma low density lipoprotein (LDL) cholesterol measurement (mass/volume)Ordered By: Ada Alexander on 03-22-2023 Cholesterol in LDL [Mass/Vol] 79 mg/dL 0-130 [facility] Thin prep Papanicolaou smear with manual screeningOrdered By: Ada Alexander on 03-22-2023 Thin prep Papanicolaou smear with manual screening 19.1 mg/L NO RANGE EST. [facility] Urine creatinine measurement (mass/volume)Ordered By: Ada Alexander on 03-22-2023 Creatinine (U) [Mass/Vol] 146.00 mg/dL NO RANGE EST. [facility] Whole blood hemoglobin A1c/t otal hemoglobin ratio (mass fraction)Ordered By: Ada Alexander on 03-22-2023 HbA1c (Bld) [Mass fraction] 7.5 % 3.8-5.6 [facility] Comment on above: Normal < 5.7 % Predi abetic 5.7 - 6.4 % Diabetic >or= 6.5 % Please note range changes. Absolute lymphocyte countOrd ered By: Latoya Wadsworth on 03-07-2023 Lymphocytes Auto (Unsp spec) [#/Vol] 1.44 10*3/uL 0.83-4.51 [facility] Basophil percentageOrdered B y: Latoya Wadsworth on 03-07-2023 Basophils/100 WBC (Bld) 0.4 % 0-1 [facility] Chloride [Moles/Vol] 102 mmol/L 98-107 [facility] Eosinophils/100 WBC (Bld) 3.1 % 0-5 [facility] Glucose [Mass/Vol] 188 mg/dL 74-106 [facility] Comment on above: Fasting Glucose resu lt greater than or equal to 126 mg/dL suggests DIABETES MELLITUS per A.D.A. criteria. Neutrophils (Bld) [#/Vol] 5.1 10*3/uL 2.0-7.7 [facility] Neutrophils/100 WBC (Bld) 68.1 % 47-70 [facility] Potassium [Moles/Vol] 3.7 mmol/L 3.5-5.1 [facility] Sodium [Moles/Vol] 137 mmol/L 136-145 [facility] WBC (Bld) [#/Vol] 7.5 10*3/uL 4.4-11.0 [facility] Blood erythrocytes count (nu mber/volume)Ordered By: Latoya Wadsworth on 03-07-2023 RBC (Bld) [#/Vol] 4.58 10*6/uL 4.6-6.2 [facility] Blood hemoglobin measurement (mass/volume)Ordered By: Latoya Wadsworth on 03-07-2023 Hemoglobin (Bld) [Mass/Vol] 15.6 g/dL 13.0-16.5 [facility] Blood lymphocytes/100 leukoc ytesOrdered By: Latoya Wadsworth on 03-07-2023 Lymphocytes/100 WBC (Bld) 19.2 % 19-41 [facility] Blood monocytes/100 leukocyt esOrdered By: Latoya Wadsworth on 03-07-2023 Monocytes/100 WBC (Bld) 8.9 % 0-10 [facility] Blood platelet mean volumeOr dered By: Latoya Wadsworth on 03-07-2023 Platelet mean volume (Bld) [Entitic vol] 11.4 fL 6.2-12.0 [facility] Determination of erythrocyte mean corpuscular volume (MCV)Ordered By: Latoya Wadsworth on 03-07-2023 MCV (RBC) [Entitic vol] 93.9 fL 80-94 [facility] Hematocrit Auto (Bld) [Volum e fraction]Ordered By: Latoya Wadsworth on 03-07-2023 Hematocrit (Bld) [Volume fraction] 43.0 % 40-54 [facility] - Chemistry and C hemistry - challengeOrdered By: Latoya Wadsworth on 03-07-2023 CO2 [Moles/Vol] 26.0 mmol/L 21.0-32.0 [facility] Urea nitrogen/Creatinine [Mass ratio] 15.4 mg/mg 10-20 [facility] - Hematology and Cell countsOrdered By: Latoya Wadsworth on 03-07-2023 Erythrocyte distribution width (RBC) [Entitic vol] 44.7 fL 35.1-43.9 [facility] Erythrocyte distribution width (RBC) [Ratio] 13.1 % 11.6-14.6 [facility] Immature granulocytes/100 WBC (Bld) 0.300 % 0.0-0.9 [facility] Comment on above: IG% - Immature Granu locytes (promyelocytes, myelocytes and metamyelocytes) > 1% indicates that a LEFT SHIFT is Present. MCH (RBC) [Entitic mass] 34.1 pg 27.0-32.0 [facility] Nucleated RBC/100 WBC (Bld) [Ratio] 0 % 0-5 [facility] MCHC Auto (RBC) [Mass/Vol]Or dered By: Latoya Wadsworth on 03-07-2023 MCHC (RBC) [Mass/Vol] 36.3 g/dL 32-36 [facility] No Panel InformationOrdered By: Latoya Wadsworth on 03-07-2023 Estimated GFR (MDRD) Amer 67 mL/min >60 [facility] Comment on above: GFR Calc Estimated GFR (MDRD) Non-Af Amer 55 mL/min >60 [facility] Comment on above: Non- GFR Calc Platelets bldOrdered By: Shakeel Wadsworth on 03-07-2023 Platelets (Bld) [#/Vol] 167 10*3/uL 150-450 [facility] Serum or plasma calcium liudmila urement (mass/volume)Ordered By: Latoya Wadsworth on 03-07-2023 Calcium [Mass/Vol] 9.5 mg/dL 8.5-10.1 [facility] Serum or plasma creatinine m easurement (mass/volume)Ordered By: Latoya Wadsworth on 03-07-2023 Creatinine [Mass/Vol] 1.36 mg/dL 0.70-1.30 [facility] Comment on above: The validity of the calculated GFR & GFRAA in patients over 70 years has not been determined. Clinical correlation is essential. Serum or plasma urea nitroge n measurement (mass/volume)Ordered By: Latoya Wadsworth on 03-07-2023 Urea nitrogen [Mass/Vol] 21 mg/dL 7-18 [facility] Thin prep Papanicolaou smear with manual screeningOrdered By: Latoya Wadsworth on 03-07-2023 Thin prep Papanicolaou smear with manual screening 9 5-15 [facility] Absolute lymphocyte countOrd ered By: Grover Lemons on 01-18-2023 Lymphocytes Auto (Unsp spec) [#/Vol] 1.65 10*3/uL 0.83-4.51 [facility] Basophil percentageOrdered B y: Grover Lemons on 01-18-2023 Basophils/100 WBC (Bld) 0.5 % 0-1 [facility] Chloride [Moles/Vol] 105 mmol/L 98-107 [facility] Eosinophils/100 WBC (Bld) 1.1 % 0-5 [facility] Glucose [Mass/Vol] 152 mg/dL 74-106 [facility] Comment on above: Fasting Glucose resu lt greater than or equal to 126 mg/dL suggests DIABETES MELLITUS per A.D.A. criteria. Neutrophils (Bld) [#/Vol] 6.1 10*3/uL 2.0-7.7 [facility] Neutrophils/100 WBC (Bld) 70.8 % 47-70 [facility] Potassium [Moles/Vol] 3.6 mmol/L 3.5-5.1 [facility] Sodium [Moles/Vol] 136 mmol/L 136-145 [facility] WBC (Bld) [#/Vol] 8.5 10*3/uL 4.4-11.0 [facility] Blood erythrocytes count (nu mber/volume)Ordered By: Grover Lemons on 01-18-2023 RBC (Bld) [#/Vol] 5.04 10*6/uL 4.6-6.2 [facility] Blood hemoglobin measurement (mass/volume)Ordered By: Grover Lemons on 01-18-2023 Hemoglobin (Bld) [Mass/Vol] 17.2 g/dL 13.0-16.5 [facility] Blood lymphocytes/100 leukoc ytesOrdered By: Grover Lemons on 01-18-2023 Lymphocytes/100 WBC (Bld) 19.3 % 19-41 [facility] Blood monocytes/100 leukocyt esOrdered By: Grover Lemons on 01-18-2023 Monocytes/100 WBC (Bld) 7.8 % 0-10 [facility] Blood platelet mean volumeOr dered By: Grover Lemons on 01-18-2023 Platelet mean volume (Bld) [Entitic vol] 11.3 fL 6.2-12.0 [facility] Determination of erythrocyte mean corpuscular volume (MCV)Ordered By: Grover Lemons on 01-18-2023 MCV (RBC) [Entitic vol] 93.1 fL 80-94 [facility] Hematocrit Auto (Bld) [Volum e fraction]Ordered By: Grover Lemons on 01-18-2023 Hematocrit (Bld) [Volume fraction] 46.9 % 40-54 [facility] Laboratory - Chemistry and C hemistry - challengeOrdered By: Grover Lemons on 01-18-2023 CO2 [Moles/Vol] 24.0 mmol/L 21.0-32.0 [facility] Urea nitrogen/Creatinine [Mass ratio] 21.0 mg/mg 10-20 [facility] - Hematology and Cell countsOrdered By: Grover Lemons on 01-18-2023 Erythrocyte distribution width (RBC) [Entitic vol] 42.9 fL 35.1-43.9 [facility] Erythrocyte distribution width (RBC) [Ratio] 12.6 % 11.6-14.6 [facility] Immature granulocytes/100 WBC (Bld) 0.500 % 0.0-0.9 [facility] Comment on above: IG% - Immature Granu locytes (promyelocytes, myelocytes and metamyelocytes) > 1% indicates that a LEFT SHIFT is Present. MCH (RBC) [Entitic mass] 34.1 pg 27.0-32.0 [facility] Nucleated RBC/100 WBC (Bld) [Ratio] 0 % 0-5 [facility] MCHC Auto (RBC) [Mass/Vol]Or dered By: Grover Lemons on 01-18-2023 MCHC (RBC) [Mass/Vol] 36.7 g/dL 32-36 [facility] No Panel InformationOrdered By: Grover Lemons on 01-18-2023 Estimated Creatinine Clearance Calc 76.11 ml/min [facility] Estimated GFR (MDRD) Amer 90 mL/min >60 [facility] Comment on above: GFR Calc Estimated GFR (MDRD) Non-Af Amer 74 mL/min >60 [facility] Comment on above: Non- GFR Calc Troponin I High Sensitivity 11 pg/mL 3.0-78.0 [facility] Comment on above: Please Note: New Aicha t Units and Gender Specific Reference Ranges. For more information see Policy Stat Procedure [place] High Sensitivity Troponin (TNIH) and attachments. Platelets bldOrdered By: Nunu Lemons on 01-18-2023 Platelets (Bld) [#/Vol] 188 10*3/uL 150-450 [facility] Serum or plasma calcium liudmila urement (mass/volume)Ordered By: Grover Lemons on 01-18-2023 Calcium [Mass/Vol] 9.8 mg/dL 8.5-10.1 [facility] Serum or plasma creatinine m easurement (mass/volume)Ordered By: Grover Lemons on 01-18-2023 Creatinine [Mass/Vol] 1.05 mg/dL 0.70-1.30 [facility] Comment on above: The validity of the calculated GFR & GFRAA in patients over 70 years has not been determined. Clinical correlation is essential. Serum or plasma urea nitroge n measurement (mass/volume)Ordered By: Grover Lemons on 01-18-2023 Urea nitrogen [Mass/Vol] 22 mg/dL 7-18 [facility] Thin prep Papanicolaou smear with manual screeningOrdered By: Grover Lemons on 01-18-2023 Thin prep Papanicolaou smear with manual screening 7 5-15 [facility] Absolute lymphocyte countOrd ered By: Roque Kang on 12-08-2022 Lymphocytes Auto (Unsp spec) [#/Vol] 1.64 10*3/uL 0.83-4.51 [facility] Basophil percentageOrdered B y: Roque Kang on 12-08-2022 Basophils/100 WBC (Bld) 0.5 % 0-1 [facility] Bilirubin [Mass/Vol] 0.90 mg/dL 0.20-1.00 [facility] Comment on above: For patients on eltr ombopag therapy, use of Dimension [place] TBIL is not recommended. Chloride [Moles/Vol] 104 mmol/L 98-107 [facility] Eosinophils/100 WBC (Bld) 1.7 % 0-5 [facility] Glucose [Mass/Vol] 129 mg/dL 74-106 [facility] Comment on above: Fasting Glucose resu lt greater than or equal to 126 mg/dL suggests DIABETES MELLITUS per A.D.A. criteria. LDH [Catalytic activity/Vol] 189 U/L 87-241 [facility] Neutrophils (Bld) [#/Vol] 4.2 10*3/uL 2.0-7.7 [facility] Neutrophils/100 WBC (Bld) 64.3 % 47-70 [facility] Potassium [Moles/Vol] 3.9 mmol/L 3.5-5.1 [facility] Protein [Mass/Vol] 7.9 g/dL 6.4-8.2 [facility] Sodium [Moles/Vol] 137 mmol/L 136-145 [facility] WBC (Bld) [#/Vol] 6.5 10*3/uL 4.4-11.0 [facility] Blood erythrocytes count (nu mber/volume)Ordered By: Roque Kang on 12-08-2022 RBC (Bld) [#/Vol] 4.91 10*6/uL 4.6-6.2 [facility] Blood hemoglobin measurement (mass/volume)Ordered By: Roque Kang on 12-08-2022 Hemoglobin (Bld) [Mass/Vol] 16.6 g/dL 13.0-16.5 [facility] Blood lymphocytes/100 leukoc ytesOrdered By: Roque Kang on 12-08-2022 Lymphocytes/100 WBC (Bld) 25.2 % 19-41 [facility] Blood monocytes/100 leukocyt esOrdered By: Roque Kang on 12-08-2022 Monocytes/100 WBC (Bld) 7.8 % 0-10 [facility] Blood platelet mean volumeOr dered By: Roque Kang on 12-08-2022 Platelet mean volume (Bld) [Entitic vol] 10.9 fL 6.2-12.0 [facility] Determination of erythrocyte mean corpuscular volume (MCV)Ordered By: Roque Kang on 12-08-2022 MCV (RBC) [Entitic vol] 93.5 fL 80-94 [facility] Hematocrit Auto (Bld) [Volum e fraction]Ordered By: Roque Kang on 12-08-2022 Hematocrit (Bld) [Volume fraction] 45.9 % 40-54 [facility] - Chemistry and C hemistry - challengeOrdered By: Roque Kang on 12-08-2022 ALP [Catalytic activity/Vol] 107 U/L 45-117 [facility] ALT [Catalytic activity/Vol] 69 U/L 16-61 [facility] CO2 [Moles/Vol] 25.0 mmol/L 21.0-32.0 [facility] Globulin (S) [Mass/Vol] 4.0 g/dL 2.2-4.2 [facility] Urea nitrogen/Creatinine [Mass ratio] 29.5 mg/mg 10-20 [facility] - Hematology and Cell countsOrdered By: Roque Kang on 12-08-2022 Erythrocyte distribution width (RBC) [Entitic vol] 44.2 fL 35.1-43.9 [facility] Erythrocyte distribution width (RBC) [Ratio] 12.9 % 11.6-14.6 [facility] Immature granulocytes/100 WBC (Bld) 0.500 % 0.0-0.9 [facility] Comment on above: IG% - Immature Granu locytes (promyelocytes, myelocytes and metamyelocytes) > 1% indicates that a LEFT SHIFT is Present. MCH (RBC) [Entitic mass] 33.8 pg 27.0-32.0 [facility] Nucleated RBC/100 WBC (Bld) [Ratio] 0 % 0-5 [facility] MCHC Auto (RBC) [Mass/Vol]Or dered By: Roque Kang on 12-08-2022 MCHC (RBC) [Mass/Vol] 36.2 g/dL 32-36 [facility] No Panel InformationOrdered By: Roque Kang on 12-08-2022 Estimated Creatinine Clearance Calc 86.87 ml/min [facility] Estimated GFR (MDRD) Amer 105 mL/min >60 [facility] Comment on above: GFR Calc Estimated GFR (MDRD) Non-Af Amer 87 mL/min >60 [facility] Comment on above: Non- GFR Calc Platelets bldOrdered By: Piyush Kang on 12-08-2022 Platelets (Bld) [#/Vol] 175 10*3/uL 150-450 [facility] Serum or plasma albumin liudmila urement (mass/volume)Ordered By: Roque Kang on 12-08-2022 Albumin [Mass/Vol] 3.9 g/dL 3.2-5.0 [facility] Serum or plasma albumin/glob ulin mass ratioOrdered By: Roque Kang on 12-08-2022 Albumin/Globulin [Mass ratio] 1.0 {ratio} 0.9-2.4 [facility] Serum or plasma calcium liudmila urement (mass/volume)Ordered By: Roque Kang on 12-08-2022 Calcium [Mass/Vol] 10.0 mg/dL 8.5-10.1 [facility] Serum or plasma creatinine m easurement (mass/volume)Ordered By: Roque Kang on 12-08-2022 Creatinine [Mass/Vol] 0.92 mg/dL 0.70-1.30 [facility] Comment on above: The validity of the calculated GFR & GFRAA in patients over 70 years has not been determined. Clinical correlation is essential. Serum or plasma ferritin ash surement (mass/volume)Ordered By: Roque Kang on 12-08-2022 Ferritin [Mass/Vol] 98 ng/mL 26-388 [facility] Serum or plasma urea nitroge n measurement (mass/volume)Ordered By: Roque Kang on 12-08-2022 Urea nitrogen [Mass/Vol] 27 mg/dL 7-18 [facility] Thin prep Papanicolaou smear with manual screeningOrdered By: Roque Kang on 12-08-2022 Thin prep Papanicolaou smear with manual screening 48 U/L 15-37 [facility] Thin prep Papanicolaou smear with manual screening 8 5-15 [facility] Laboratory - Microbiology an d Antimicrobial susceptibilityon 10-28-2022 S. pyogenes Ag IA Ql (Unsp spec) Negative [facility] Provider Note - ED v3on 12-25 [...] SIGNS: T PRBP SpO2O2(LPM) %FiO2 Method 04-Jan-2022 08:48:[id number]/76 96 MDM MDM/ED COURSE: CC: I have [...] encouraged and answered. DISPOSITION Diagnosis/Annotation: ED Dx Name:Cipriano ashley Code:B35.3 Disposition: discharged Type: home CONSULT CRITICAL CARE TIME Is this a critically ill patient: no Electronic Signatures: Devi Barry (DENTAL TECH-TAX INTERN) (Signed 04-Jan-2022 09:42) Authored: HPI, PMH, PE, Results/Vital Signs, MDM/ED Course, Clinical Impression, Attestation, Chart Review, Scores Last Updated: 04-Jan-2022 09:42 by Devi Barry (DENTAL TECH-TAX INTERN) [facility]ly [facility] Absolute lymphocyte counton 12-09-2021 Lymphocytes Auto (Unsp spec) [#/Vol] 1.35 10*3/uL 0.83-4.51 [facility] Work Phone: [phone] Basophil percentageon 2021 Basophils/100 WBC (Bld) 0.2 % 0-1 [facility] Work Phone: [phone] Bilirubin [Mass/Vol] 0.80 mg/dL 0.20-1.00 [facility] Work Phone: [phone] Comment on above: For patients on eltr ombopag therapy, use of Dimension [place] TBIL is not recommended. Chloride [Moles/Vol] 103 mmol/L 98-107 [facility] Work Phone: [phone] Eosinophils/100 WBC (Bld) 1.2 % 0-5 [facility] Work Phone: [phone] Glucose [Mass/Vol] 155 mg/dL 74-106 [facility] Work Phone: [phone] Comment on above: Fasting Glucose resu lt greater than or equal to 126 mg/dL suggests DIABETES MELLITUS per A.D.A. criteria. Neutrophils (Bld) [#/Vol] 4.5 10*3/uL 2.0-7.7 [facility] Work Phone: [phone] Neutrophils/100 WBC (Bld) 70.2 % 47-70 [facility] Work Phone: [phone] Potassium [Moles/Vol] 3.8 mmol/L 3.5-5.1 [facility] Work Phone: Protein [Mass/Vol] 7.7 g/dL 6.4-8.2 [facility] Work Phone: Sodium [Moles/Vol] 137 mmol/L 136-145 [facility] Work Phone: WBC (Bld) [#/Vol] 6.5 10*3/uL 4.4-11.0 [facility] Work Phone: [phone] Blood erythrocytes count (nu mber/volume)on 12-09-2021 RBC (Bld) [#/Vol] 4.74 10*6/uL 4.6-6.2 [facility] Work Phone: [phone] Blood hemoglobin measurement (mass/volume)on 12-09-2021 Hemoglobin (Bld) [Mass/Vol] 15.9 g/dL 13.0-16.5 [facility] Work Phone: Blood lymphocytes/100 leukoc yteson 12-09-2021 Lymphocytes/100 WBC (Bld) 20.9 % 19-41 [facility] Work Phone: Blood monocytes/100 leukocyt eson 12-09-2021 Monocytes/100 WBC (Bld) 7.0 % 0-10 [facility] Work Phone: Blood platelet mean volumeon 12-09-2021 Platelet mean volume (Bld) [Entitic vol] 11.0 fL 6.2-12.0 [facility] Work Phone: [phone] Determination of erythrocyte mean corpuscular volume (MCV)on 12-09-2021 MCV (RBC) [Entitic vol] 94.5 fL 80-94 [facility] Work Phone: Hematocrit Auto (Bld) [Volum e fraction]on 12-09-2021 Hematocrit (Bld) [Volume fraction] 44.8 % 40-54 [facility] Work Phone: [phone] Laboratory - Chemistry and C hemistry - challengeon 06-15-2022 ALP [Catalytic activity/Vol] 96 U/L 45-117 [facility] Work Phone: ALT [Catalytic activity/Vol] 81 U/L 16-61 [facility] Work Phone: [phone] CO2 [Moles/Vol] 25.0 mmol/L 21.0-32.0 [facility] Work Phone: [phone] Globulin (S) [Mass/Vol] 3.9 g/dL 2.2-4.2 [facility] Work Phone: [phone] Urea nitrogen/Creatinine [Mass ratio] 20.3 mg/mg 10-20 [facility] Work Phone: Laboratory - Hematology and Cell countson 12-09-2021 Erythrocyte distribution width (RBC) [Entitic vol] 44.2 fL 35.1-43.9 [facility] Work Phone: [phone] Erythrocyte distribution width (RBC) [Ratio] 12.8 % 11.6-14.6 [facility] Work Phone: [phone] Immature granulocytes/100 WBC (Bld) 0.500 % 0.0-0.9 [facility] Work Phone: [phone] Comment on above: IG% - Immature Granu locytes (promyelocytes, myelocytes and metamyelocytes) > 1% indicates that a LEFT SHIFT is Present. MCH (RBC) [Entitic mass] 33.5 pg 27.0-32.0 [facility] Work Phone: [phone] Nucleated RBC/100 WBC (Bld) [Ratio] 0 % 0-5 [facility] Work Phone: [phone] MCHC Auto (RBC) [Mass/Vol]on 12-09-2021 MCHC (RBC) [Mass/Vol] 35.5 g/dL 32-36 [facility] Work Phone: [phone] No Panel Informationon 12-09 Estimated Creatinine Clearance Calc 63.33 ml/min [facility] Work Phone: [phone] Estimated GFR (MDRD) Amer 72 mL/min >60 [facility] Work Phone: Comment on above: GFR Calc Estimated GFR (MDRD) Non-Af Amer 59 mL/min >60 [facility] Work Phone: Comment on above: Non- GFR Calc Platelets bldon 12-09-2021 Platelets (Bld) [#/Vol] 166 10*3/uL 150-450 [facility] Work Phone: Serum or plasma albumin liudmila urement (mass/volume)on 12-09-2021 Albumin [Mass/Vol] 3.8 g/dL 3.2-5.0 [facility] Work Phone: Serum or plasma albumin/glob ulin mass ratioon 12-09-2021 Albumin/Globulin [Mass ratio] 1.0 {ratio} 0.9-2.4 [facility] Work Phone: Serum or plasma [id number] protein tumor marker measurement (units/volume)Ordered By: Roque Kang on 12-09-2021 AFP.tumor marker Qn 1.7 ng/mL 0.0-8.4 [facility] Comment on above: [employer] [employer] El ectrochemiluminescence Immunoassay(ECLIA)Values obtained with different assay methods or kits cannotbe used interchangeably. Results cannot be interpreted asabsolute evidence of the presence or absence of malignantdisease.This test is not interpretable in females.Performed at: [facility] [id number] Director: Hao Marks PhD, Phone: [phone] Serum or plasma calcium liudmila urement (mass/volume)on 12-09-2021 Calcium [Mass/Vol] 9.4 mg/dL 8.5-10.1 [facility] Work Phone: Serum or plasma creatinine m easurement (mass/volume)on 12-09-2021 Creatinine [Mass/Vol] 1.28 mg/dL 0.70-1.30 [facility] Work Phone: Comment on above: The validity of the calculated GFR & GFRAA in patients over 70 years has not been determined. Clinical correlation is essential. Serum or plasma ferritin ash surement (mass/volume)on 12-09-2021 Ferritin [Mass/Vol] 107 ng/mL 26-388 [facility] Work Phone: Serum or plasma urea nitroge n measurement (mass/volume)on 12-09-2021 Urea nitrogen [Mass/Vol] 26 mg/dL 7-18 [facility] Work Phone: Thin prep Papanicolaou smear with manual screeningon 12-09-2021 Thin prep Papanicolaou smear with manual screening 53 U/L 15-37 [facility] Work Phone: Thin prep Papanicolaou smear with manual screening 9 5-15 [facility] Work Phone: Thin prep Papanicolaou smear with manual screening 191 U/L 87-241 [facility] Work Phone: Covid 19 Resultson 2 [...] You may also be contacted by the [facility] to see if any of your close [...] or Naproxen (Aleve) can also be used. Yrdk-rqe-kgguaak cough and cold medicines can be used according to the instructions on the package. Some fedq-pmu-lbdqrrz medicines also contain acetaminophen. Make sure you [...] water are not available, use alcohol-based hand pelota maker. Avoid touching your eyes, nose, and mouth [...] 24 janice (more content not included)... Normal [facility] INFLUENZA A/B, COVID 2019 PC R,SYMPTOMATICon 09-17-2021 INFLUENZA A, PCR Not detected Normal Not Detected [facility] Comment on above: Result Comment: Resp iratory virus testing is performed routinely by PCR for Influenza A/B and RSV. If Influenza and RSV PCR are negative, testing for parainfluenza 1,2,3 viruses and adenovirus is routinely performed for oncology inpatients and intensive care unit patients at [facility] and is available on request on other patients by calling Laboratory Client Services at [phone]. Not Detected results do not preclude Influenza A/B or RSV infections since the adequacy of sample collection or low viral burden may impact the clinical sensitivity of this test method. Performed By: #### C IFEOMA #### [facility] [id number] [place] [address] INFLUENZA B, PCR Not detected Normal Not Detected [facility] Comment on above: Result Comment: Resp iratory virus testing is performed routinely by PCR for Influenza A/B and RSV. If Influenza and RSV PCR are negative, testing for parainfluenza 1,2,3 viruses and adenovirus is routinely performed for oncology inpatients and intensive care unit patients at [facility] and is available on request on other patients by calling Laboratory Client Services at [phone] Not Detected results do not preclude Influenza [...] by the Microbiology Laboratory, Department of Pathology, [facility], [place], [place]. It has not been cleared or approved by the US Food and Drug Administration; however, FDA clearance or approval is not currently required for clinical use. This test should not be regarded as investigational or for research purposes. Performed By: #### C OINP #### [facility] [id number] [place] [address] SARS-CoV-2 (COVID-19) RNA JAYNE+probe Ql (Unsp spec) Not detected Normal Not Detected [facility] Comment on above: Result Comment: [...] patient management decisions. Fact sheet for providers: https://www.fda.gov/media/797630/download Fact sheet for patients: https://www.fda.gov/media/583551/download This test has received FDA Emergency Use Authorization (EUA) and has been verified by [facility] ([facility]). This test is only authorized for the duration of time that circumstances exist to justify the authorization of the emergency use of in vitro diagnostic tests for the detection of SARS-CoV-2 virus and/or diagnosis of COVID-19 infection under section 564(b)(1) of the Act, 21 U.S.C. 360bbb-3(b)(1), unless the authorization is terminated or revoked sooner. [facility] is certified under CLIA-88 as qualified to perform high complexity testing. Testing is performed in the [facility] laboratories located at [address] [place] [address]. Performed By: #### C OINP #### [address] [place] [address] INFLUENZA A/B, COVID 2019 PC R,SYMPTOMATICon 09-16-2021 Lab Specimen Source Nasal, Nasopharyngeal Normal [facility] Comment on above: Performed By: #### C OINP #### [address] [place] [address] DATE OF SYMPTOM ONSET [YYYYMMDD]? [id number] Normal [facility] Comment on above: Performed By: #### C OINP #### [address] [place] [address] Provider Note - ED v3on 08-26 Provider [...] sleep apnea (wears BiPap nightly), and a "shunt" in his R ear. No other known health issues. Follows regularly with PCP Dr. Alexander. Family history: no pertinent history. Social history: Former smoker - quit ~40 years ago. 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 . Has grandchildren in [place]. OUTPATIENT MEDICATIONS: Home Medications Review Status for [...] History Description:Hypertension (HTN) Also reports history of "shunt" in R ear r/t Meniere's Disease. No other known significant events or known past surgical history. Has received Moderna COVID-19 Vaccine x 2 + one booster vaccine. CRITICAL CARE VITAL SIGNS: T PRBP SpO2O2(LPM) %FiO2 Method 16-Sep-2021 10:41:[id number]/90 95 Recheck BP 147/75. MDM MDM/ED COURSE: [...] cough drops with some relief; no other lwrl-sii-oalibxx medications or home remedies for symptom management. [...] Musculoskeletal: Grossly normal; appropriate for age. Integumentary: Evan, warm, dry, and intact. No rashes or skin discoloration appreciated. Good skin turgor. Neurologic: Alert an (more content not included)... Normal [facility] Erythrocyte distribution wid th standard deviationon 11-01-2018 Erythrocyte distribution width (RBC) [Entitic vol] 43.7 fL 35.1-43.9 [facility] Iron measurement (mass/mass) on 11-01-2018 Iron (Unsp spec) [Mass/Mass] 108 ug/dL 65-175 [facility] Laboratory - Hematology and Cell countson 11-01-2018 Erythrocyte distribution width (RBC) [Ratio] 14.3 % 11.6-14.6 [facility] No Panel Informationon 11-01 Total Iron Binding Capacity 308 ug/dL 250-450 [facility] Serum or plasma iron saturat ion measurement (mass fraction)on 11-01-2018 Iron saturation [Mass fraction] 35.1 % 15.0-55.0 [facility] [facility] Total cell counton 9 Cells counted [employer] (Bld/Tiss) [#] Not Reportable [facility] Office Visit: [facility] 11-16-19 17 Documentation of current medications (procedure) Done Invalid Interpretation Code [facility] [employer] Work Phone: [phone] Fall risk assessment No [facility] [employer] 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 Work Phone: [phone] alpha-1 fetoprotein tumor marker, serum/plasma 1.7 ng/mL Invalid Interpretation Code 0.0-8.3 [facility] [employer] Work Phone: [phone] Lab Report: CBC W/Diff, Auto - EPLAB Onlyon 07-27-2016 Basophils/100 leukocytes 0.8 % Invalid Interpretation Code 0-1 [facility] [employer] Work Phone: Basophils/100 WBC (Bld) 0.8 % 0-1 [facility] Work Phone: Eosinophils/100 leukocytes 3.7 % Invalid Interpretation Code 0-5 [facility] Work Phone: Eosinophils/100 WBC (Bld) 3.7 % 0-5 [facility] [employer] [facility] [employer] Work Phone: [phone] Erythrocyte distribution width (RBC) [Ratio] 15.1 % High 11.6-14.6 [facility] [employer] Work Phone: [phone] Erythrocytes (RBC) 5.17 10*6/uL Invalid Interpretation Code 4.6-6.2 [facility] Work Phone: Hematocrit (Bld) [Volume fraction] 43.1 % 40-54 [facility] Work Phone: Hematocrit (HCT) 43.1 % Invalid Interpretation Code 40-54 [facility] Work Phone: Hemoglobin (HGB) 13.8 g/dL 13.0-16.5 [facility] Work Phone: Lymphocytes 1.36 X10 3/UL Invalid Interpretation Code 0.83-4.51 [facility] Work Phone: Lymphocytes (Bld) [#/Vol] 1.36 X10 3/UL 0.83-4.51 [facility] Work Phone: Lymphocytes/100 leukocytes 21.2 % Invalid Interpretation Code 19-41 [facility] Work Phone: Lymphocytes/100 WBC (Bld) 21.2 % 19-41 [facility] Work Phone: MCH 26.7 pg Low 27.0-32.0 [facility] Work Phone: MCH (RBC) [Entitic mass] 26.7 pg Low 27.0-32.0 [facility] Work Phone: MCHC 32.0 g/dL Invalid Interpretation Code 32-36 [facility] Work Phone: MCHC (RBC) [Mass/Vol] 32.0 g/dL 32-36 [facility] Work Phone: MCV 83.5 fL Invalid Interpretation Code 80-94 [facility] Work Phone: MCV (RBC) [Entitic vol] 83.5 fL 80-94 [facility] Work Phone: Monocytes/100 leukocytes 6.3 % Invalid Interpretation Code 0-10 [facility] Work Phone: Monocytes/100 WBC (Bld) 6.3 % 0-10 [facility] Work Phone: neutrophil count, blood 4.4 X10 3/UL Invalid Interpretation Code 2.0-7.7 [facility] Work Phone: Neutrophils (Bld) [#/Vol] 4.4 X10 3/UL 2.0-7.7 [facility] Work Phone: Neutrophils/100 leukocytes 67.9 % Invalid Interpretation Code 47-70 [facility] Work Phone: Neutrophils/100 WBC (Bld) 67.9 % 47-70 [facility] Work Phone: Platelet mean volume (Bld) [Entitic vol] 8.2 fL 6.2-12.0 [facility] Work Phone: Platelets 192 10*3/mm3 Invalid Interpretation Code 150-450 [facility] Work Phone: Platelets (Bld) [#/Vol] 192 10*3/mm3 150-450 [facility] Work Phone: PMV by Ruchi 8.2 fL Invalid Interpretation Code 6.2-12.0 [facility] Work Phone: RBC (Bld) [#/Vol] 5.17 10*6/uL 4.6-6.2 [facility] Work Phone: RDW-CA 15.1 % High 11.6-14.6 [facility] Work Phone: WBC (Bld) [#/Vol] 6.4 10*3/uL 4.4-11.0 [facility] Work Phone: WBC (Leukocytes) 6.4 10*3/uL Invalid Interpretation Code 4.4-11.0 [facility] Work Phone: [phone] Lab Report: [facility] 07-27-2016 Alanine aminotransferase (ALT) 53 U/L 12-78 [facility] Work Phone: Albumin 3.7 g/dL 3.4-5.0 [facility] Work Phone: [phone] Albumin/Globulin Ratio 0.9 {ratio} 0.9-2.4 [facility] Work Phone: [phone] Alkaline phosphatase (ALP) 103 U/L Invalid Interpretation Code 45-117 [facility] Work Phone: [phone] ALP (Bld) [Catalytic activity/Vol] 103 U/L 45-117 [facility] Work Phone: [phone] Anion gap 10 mmol/L Invalid Interpretation Code 5-15 [facility] Work Phone: [phone] Anion gap [Moles/Vol] 10 mmol/L 5-15 [facility] Work Phone: [phone] Aspartate aminotransferase (AST) 42 U/L High 15-37 [facility] Work Phone: [phone] Bilirubin (total) 0.60 mg/dL 0.20-1.00 [facility] Work Phone: [phone] BUN/Creatinine Ratio 15.9 RATIO 10-[address] [facility] Work Phone: [phone] Calcium 9.0 mg/dL 8.5-10.1 [facility] Work Phone: [phone] Chloride 101 mmol/L 98-107 [facility] Work Phone: [phone] CO2 26.0 mmol/L Invalid Interpretation Code 21.0-32.0 [facility] Work Phone: [phone] CO2 (BldV) [Partial pressure] 26.0 mmol/L 21.0-32.0 [facility] Work Phone: [phone] Creatinine 1.07 mg/dL 0.70-1.30 [facility] Work Phone: [phone] eGFR (non-black) 90 mL/min/{1.73_m2} Invalid Interpretation Code >60 [facility] Work Phone: [phone] eGFR (non-black) 74 mL/min/{1.73_m2} >60 [facility] Work Phone: [phone] EST GFR - AA 90 mL/min >60 [facility] Work Phone: [phone] Globulin 4.0 g/dL High 2.3-3.5 [facility] Work Phone: [phone] Globulin (S) [Mass/Vol] 4.0 g/dL High 2.3-3.5 [facility] Work Phone: [phone] Glucose 163 mg/dL High 70-110 [facility] [employer] [facility] Work Phone: [phone] Glucose [Mass/Vol] 163 mg/dL High 70-110 [facility] [employer] Work Phone: [phone] Potassium 4.3 mmol/L 3.5-5.1 [facility] Work Phone: [phone] Protein 7.7 g/dL 6.4-8.2 [facility] [employer] Work Phone: [phone] Sodium 137 mmol/L 136-145 [employer] Work Phone: [phone] Urea nitrogen 17 mg/dL 7-18 [employer] Work Phone: [phone] Lab Report: Ferritinon 07-27 Ferritin 17 ng/mL Low 26-388 [employer] Work Phone: [phone] Lab Report: Ironon 7 Iron 52 ug/dL Low 65-175 [employer] Work Phone: [phone] Lab Report: Iron Binding Cap acity,Totalon 07-27-2016 iron binding capacity, total 322 ug/dL 250-450 [employer] Work Phone: [phone] Lab Report: LDHon 07-27-2016 lactate dehydrogenase - serum 184 U/L Invalid Interpretation Code 87-241 [employer] Work Phone: [phone] LDH 184 U/L 87-241 [facility] [employer] Work Phone: [phone] Lab Report: Uric Acidon 06-29 Urate 5.8 mg/dL 3.5-7.2 [employer] Work Phone: [phone] Office Visit: 6 month f/u (H H) *PHQ9 Completeon 07-27-2016 Adolescent depression screening assessment Adolescent depression screening assessment Invalid Interpretation Code [employer] Work Phone: [phone] Adult depression screening assessment Adolescent depression screening assessment [employer] Work Phone: [phone] Dietary management education, guidance, and counseling (procedure) yes Invalid Interpretation Code [facility] Work Phone: [phone] Documentation of current medications (procedure) Done Invalid Interpretation Code [facility] Work Phone: [phone] Tobacco smoking status NHIS Former smoker [facility] Work Phone: [phone] Tobacco use CPHS Former smoker Invalid Interpretation Code [facility] Work Phone: [phone] Replaced Document: Jeri OCHOA Observationson 07-07-2016 EKG QRS axis 47 deg [facility] Work Phone: electrocardiogram interpretation Sinus Bradycardia WITHIN NORMAL LIMITS Invalid Interpretation Code [facility] Work Phone: [phone] GE use only - for [employer] import when terms are not otherwise specified 407 ms Invalid Interpretation Code [facility] Work Phone: Interpretation Sinus Bradycardia WI THIN NORMAL LIMITS [facility] [employer] Work Phone: P Kyburz 34 deg [facility] [employer] [facility] [employer] Work Phone: [phone] P wave axis, electrocardiogram 34 deg Invalid Interpretation Code [facility] Work Phone: ID Interval 170 ms [facility] Work Phone: ID interval, electrocardiogram 170 ms Invalid Interpretation Code [facility] Work Phone: Pulse (Heart Rate) 57 /min Invalid Interpretation Code [facility] Work Phone: QRS axis, electrocardiogram 47 deg Invalid Interpretation Code [facility] Work Phone: QRS Duration 84 ms [facility] Work Phone: QRS duration, electrocardiogram 84 ms Invalid Interpretation Code [facility] [employer] 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 Ur-Randomon 01-28-2016 Protein [Mass] in unspecified time Urine 8.9 mg/dL Not Estab. [facility] Work Phone: [phone] Lab Report: Protein Electrop h, Son 01-28-2016 Globulin . Invalid Interpretation Code [facility] Work Phone: [phone] M-SPIKE . [facility] Work Phone: [phone] Albumin 3.6 g/dL 2.9-4.4 [facility] Work Phone: [phone] Albumin/Globulin Ratio 0.9 (?) 0.7-1.7 [facility] Work Phone: [phone] ALPHA-1 GLOBUL 0.2 g/dL 0.0-0.4 [facility] Work Phone: [phone] ALPHA-2 GLOBUL 0.9 g/dL 0.4-1.0 [facility] Work Phone: [phone] BETA GLOBULIN 1.1 g/dL 0.7-1.3 [facility] Work Phone: [phone] GAMMA GLOBULIN 1.6 g/dL 0.4-1.8 [facility] Work Phone: Globulin 1.6 g/dL Invalid Interpretation Code 0.4-1.8 [facility] Work Phone: Globulin 1.1 g/dL Invalid Interpretation Code 0.7-1.3 [facility] Work Phone: Globulin 0.9 g/dL Invalid Interpretation Code 0.4-1.0 [facility] Work Phone: Globulin 0.2 g/dL Invalid Interpretation Code 0.0-0.4 [facility] Work Phone: [phone] Globulin 3.8 g/dL Invalid Interpretation Code 2.2-3.9 [facility] Work Phone: Globulin (S) [Mass/Vol] 3.8 g/dL 2.2-3.9 [facility] Work Phone: [phone] INTERPRETATION Comment . [facility] Work Phone: [phone] lab comments Comment Invalid Interpretation Code . [facility] Work Phone: [phone] NOTE: Comment . [facility] Work Phone: [phone] Protein 7.4 g/dL 6.0-8.5 [facility] Work Phone: [phone] serum protein electrophoresis, interpretation/comment Comment Invalid Interpretation Code . [facility] Work Phone: [phone] Lab Report: Bilirubin, Direc ton 01-23-2016 Bilirubin (direct) 0.12 mg/dL 0.00-0.30 [facility] Work Phone: [phone] Lab Report: CBC W/Diff, Auto matedon 01-23-2016 Erythrocyte distribution width (RBC) [Ratio] 44.2 fL High 35.1-43.9 [facility] Work Phone: [phone] Immature granulocytes (Bld) [#/Vol] 0.200 % 0.0-0.9 [facility] Work Phone: [phone] immature granulocytes, percentage of total cells, blood 0.200 % Invalid Interpretation Code 0.0-0.9 [facility] Work Phone: [phone] red blood cell distribution width, size density 44.2 fL High 35.1-43.9 [facility] Work Phone: [phone] Lab Report: Lipid Profileon 07-15-2015 Cholesterol 166 mg/dL 200 [facility] Work Phone: [phone] HDL Cholesterol 37 mg/dL Low [facility] Work Phone: [phone] LDL Cholesterol 106 mg/dL 0-130 [facility] Work Phone: [phone] Triglyceride 115 mg/dL [facility] Work Phone: [phone] very low density lipoproteins 23 mg/dL 5-40 [facility] Work Phone: [phone] Replaced Document: Microalb: Creat Ratio,Random URon 07-15-2015 ACR (microalbumin/creatini ne) ratio 6.9 MG/G CRE Invalid Interpretation Code <30 mg/g CRE [facility] Phone: Albumin/Creatinine DL <= 20 mg/L (U) [Ratio] 6.9 MG/G CRE <30 mg/g CRE [facility] [employer] Work Phone: [phone] Urine, creatinine 159.00 mg/dL NO RANGE EST. [facility] [employer] Work Phone: [phone] Urine, microalbumin 1.1 mg/dL Units converted. See lab report for original value. [facility] [employer] Work Phone: Office Visiton 04-16-2015 Smoking cessation education (procedure) yes Invalid Interpretation Code [facility] Phone: Lab Report: CBC W/Diff, Auto - EPLAB Onlyon 01-15-2015 Absolute Neut 3.9 X10 3/UL 2.0-7.7 [facility] [employer] Work Phone: Absolute Neutrophil count 3.9 X10 3/UL Invalid Interpretation Code 2.0-7.7 [facility] Phone: Lab Report: LDHon 01-15-2015 Lactate dehydrogenase (LDH) 193 U/L 84-246 [facility] Phone: Office Visit: 3 month follow up.on 06-27-2012 Colonoscopy (procedure) Hyperplastic Polyp Invalid Interpretation Code [facility] Phone: Vital Signs Date Time Vital Sign Value Performing Clinician Facility 11-27-2024 14:19-040 Body height 187.[address] Ada Alexander DO Work Phone: [facility] 11-27-2024 14:040 Body mass index (BMI) [Ratio] 35.6 kg/m2 Dr. Ada Alexander DO Work Phone: [facility] 11-27-2024 14:19040 Body temperature 98.2 [degF] Dr. Ada Alexander DO Work Phone: [facility] 11-27-2024 14:19-0400 Body weight 125.[address] Ada Alexander DO Work Phone: [facility] 11-27-2024 14:19-0400 Diastolic blood pressure 77 mm[Hg] Dr. Ada Alexander DO Work Phone: [facility] 11-27-2024 14:19-0400 Heart rate 63 /min Dr. Ada Alexander DO Work Phone: [facility] 11-27-2024 14:19-0400 Respiratory rate 18 /min Dr. Ada Alexander DO Work Phone: [facility] 11-27-2024 14:19-0400 SaO2% (BldA) [Mass fraction] 93 % Dr. Ada Alexander DO Work Phone: [facility] 11-27-2024 14:19-0400 Systolic blood pressure 116 mm[Hg] Dr. Ada Alexander DO Work Phone: [facility] 05-30-2024 15:44-0500 Body temperature 97.2 [degF] Dr. Ada Alexander DO Work Phone: [facility] 05-30-2024 15:44-0500 Diastolic blood pressure 67 mm[Hg] Dr. Ada Alexander DO Work Phone: [facility] 05-30-2024 15:44-0500 Heart rate 54 /min Dr. Ada Alexander DO Work Phone: [facility] 05-30-2024 15:44-0500 Respiratory rate 16 /min Dr. Ada Alexander DO Work Phone: [facility] 05-30-2024 15:44-0500 SaO2% (BldA) [Mass fraction] 96 % Dr. Ada Alexander DO Work Phone: [facility] 05-30-2024 15:44-0500 Systolic blood pressure 141 mm[Hg] Dr. Ada Alexander DO Work Phone: [facility] 05-30-2024 15:27-0500 Body mass index (BMI) [Ratio] 38.5 kg/m2 Dr. Ada Alexander DO Work Phone: [facility] 09-01-2023 10:11-0500 Diastolic blood pressure 84 mm[Hg] Dr. Ada Alexander Work Phone: [facility] 09-01-2023 10:11-0500 Systolic blood pressure 128 mm[Hg] Dr. Ada Alexander Work Phone: [facility] 09-01-2023 09:30-0500 Body height 187.[address] Ada Alexander Work Phone: [facility] 09-01-2023 09:30-0500 Body mass index (BMI) [Ratio] 34.1 kg/m2 Dr. Ada Alexander Work Phone: [facility] 09-01-2023 09:30-0500 Body weight 120.[address] Ada Alexander Work Phone: [facility] 09-01-2023 09:30-0500 Heart rate 59 /min Dr. Ada Alexander Work Phone: [facility] 09-01-2023 09:30-0500 Respiratory rate 20 /min Dr. Ada Alexander Work Phone: [facility] 09-01-2023 09:30-0500 SaO2% (BldA) [Mass fraction] 93 % Dr. Ada Alexander Work Phone: [facility] 08-01-2023 18:14-0500 Diastolic blood pressure 88 mm[Hg] Dr. Ada Alexander Work Phone: [facility] 08-01-2023 18:14-0500 Heart rate 76 /min Dr. Ada Alexander Work Phone: [facility] 08-01-2023 18:14-0500 Respiratory rate 14 /min Dr. Ada Alexander Work Phone: [facility] 08-01-2023 18:14-0500 SaO2% (BldA) [Mass fraction] 99 % Dr. Ada Alexander Work Phone: [facility] 08-01-2023 18:14-0500 Systolic blood pressure 147 mm[Hg] Dr. Ada Alexander Work Phone: [facility] 08-01-2023 13:32-0500 Body height 187.[address] Ada Alexander Work Phone: [facility] 08-01-2023 13:32-0500 Body mass index (BMI) [Ratio] 35.9 kg/m2 Dr. Ada Alexander Work Phone: [facility] 08-01-2023 13:32-0500 Body temperature 96.8 [degF] Dr. Ada Alexander Work Phone: [facility] 08-01-2023 13:32-0500 Body weight 126.[address] Ada Alexander Work Phone: [facility] 06-01-2023 15:35-0500 Diastolic blood pressure 63 mm[Hg] Dr. Ada Alexander Work Phone: [facility] 06-01-2023 15:35-0500 Heart rate 61 /min Dr. Ada Alexander Work Phone: [facility] 06-01-2023 15:35-0500 Respiratory rate 16 /min Dr. Ada Alexander Work Phone: [facility] 06-01-2023 15:35-0500 Systolic blood pressure 123 mm[Hg] Dr. Ada Alexander Work Phone: [facility] 06-01-2023 15:22-0500 Body height 187.[address] Ada Alexander Work Phone: [facility] 06-01-2023 14:36-0500 Body mass index (BMI) [Ratio] 35.9 kg/m2 Dr. Ada Alexander Work Phone: [facility] 06-01-2023 14:36-0500 Body temperature 97.5 [degF] Dr. Ada Alexander Work Phone: [facility] 06-01-2023 14:36-0500 Body weight 127.[address] Ada Alexander Work Phone: [facility] 06-01-2023 14:36-0500 Diastolic blood pressure 78 mm[Hg] Dr. Ada Alexander Work Phone: [facility] 06-01-2023 14:36-0500 Heart rate 63 /min Dr. Ada Alexander Work Phone: [facility] 06-01-2023 14:36-0500 Respiratory rate 18 /min Dr. Ada Alexander Work Phone: [facility] 06-01-2023 14:36-0500 SaO2% (BldA) [Mass fraction] 95 % Dr. Ada Alexander Work Phone: [facility] 06-01-2023 14:36-0500 Systolic blood pressure 118 mm[Hg] Dr. Ada Alexander Work Phone: [facility] 03-22-2023 09:10-0400 Body height 187.[address] Ada Alexander Work Phone: [facility] 03-22-2023 09:10-0400 Body mass index (BMI) [Ratio] 36.1 kg/m2 Dr. Ada Alexander Work Phone: [facility] 03-22-2023 09:10-0400 Body weight 127.[address] Ada Alexander Work Phone: [facility] 03-22-2023 09:10-0400 Diastolic blood pressure 77 mm[Hg] Dr. Ada Alexander Work Phone: [facility] 03-22-2023 09:10-0400 Heart rate 74 /min Dr. Ada Alexander Work Phone: [facility] 03-22-2023 09:10-0400 Respiratory rate 18 /min Dr. Aad Alexander Work Phone: [facility] 03-22-2023 09:10-0400 SaO2% (BldA) [Mass fraction] 94 % Dr. Ada Alexander Work Phone: [facility] 03-22-2023 09:10-0400 Systolic blood pressure 146 mm[Hg] Dr. Ada Alexander Work Phone: [facility] 03-08-2023 14:24-0400 Body height 187.[address] Ada Alexander Work Phone: [facility] 03-08-2023 14:24-0400 Body weight 130.[address] Ada Alexander Work Phone: [facility] 03-08-2023 07:53-0400 Body mass index (BMI) [Ratio] 36.8 kg/m2 Dr. Ada Alexander Work Phone: [facility] 01-20-2023 10:28-0400 Body height 187.[address] Ada Alexander Work Phone: [facility] 01-20-2023 10:28-0400 Body mass index (BMI) [Ratio] 36.1 kg/m2 Dr. Ada Alexander Work Phone: [facility] 01-20-2023 10:28-0400 Body weight 127.[address] Ada Aleaxnder Work Phone: [facility] 01-20-2023 10:28-0400 Diastolic blood pressure 87 mm[Hg] Dr. Ada Alexander Work Phone: [facility] 01-20-2023 10:28-0400 Heart rate 97 /min Dr. Ada Alexander Work Phone: [facility] 01-20-2023 10:28-0400 Respiratory rate 18 /min Dr. Ada Alexander Work Phone: [facility] 01-20-2023 10:28-0400 SaO2% (BldA) [Mass fraction] 98 % Dr. Ada Alexander Work Phone: [facility] 01-20-2023 10:28-0400 Systolic blood pressure 124 mm[Hg] Dr. Ada Alexander Work Phone: [facility] 01-18-2023 17:13-0400 Heart rate 85 /min Dr. Ada Alexander Work Phone: [facility] 01-18-2023 17:13-0400 Respiratory rate 18 /min Dr. Ada Alexander Work Phone: [facility] 01-18-2023 17:13-0400 SaO2% (BldA) [Mass fraction] 95 % Dr. Ada Alexander Work Phone: [facility] 01-18-2023 15:02-0400 Body mass index (BMI) [Ratio] 36.5 kg/m2 Dr. Ada Alexander Work Phone: [facility] 01-18-2023 15:02-0400 Body temperature 97 [degF] Dr. Ada Alexander Work Phone: [facility] 01-18-2023 15:02-0400 Body weight [address] Ada Alexander Work Phone: [facility] 01-18-2023 15:02-0400 Diastolic blood pressure 84 mm[Hg] Dr. Ada Alexander Work Phone: [facility] 01-18-2023 15:02-0400 Systolic blood pressure 128 mm[Hg] Dr. Ada Alexander Work Phone: [facility] 12-08-2022 14:49-0400 Body mass index (BMI) [Ratio] 36.8 kg/m2 Dr. Ada Alexander Work Phone: [facility] 12-08-2022 14:49-0400 Body temperature 97.7 [degF] Dr. Ada Alexander Work Phone: [facility] 12-08-2022 14:49-0400 Body weight 126.[address] Ada Alexander Work Phone: [facility] 12-08-2022 14:49-0400 Diastolic blood pressure 77 mm[Hg] Dr. Ada Alexander Work Phone: [facility] 12-08-2022 14:49-0400 Heart rate 62 /min Dr. Ada Alexander Work Phone: [facility] 12-08-2022 14:49-0400 Respiratory rate 16 /min Dr. Ada Alexander Work Phone: [facility] 12-08-2022 14:49-0400 SaO2% (BldA) [Mass fraction] 62 % Dr. Ada Alexander Work Phone: [facility] 12-08-2022 14:49-0400 Systolic blood pressure 133 mm[Hg] Dr. Ada Alexander Work Phone: [facility] 10-28-2022 17:05-0400 Body mass index (BMI) [Ratio] 36.9 kg/m2 Dr. Ada Alexander Work Phone: [facility] 10-28-2022 17:05-0400 Body temperature 97.8 [degF] Dr. Ada Alexander Work Phone: [facility] 10-28-2022 17:05-0400 Body weight [address] Ada Alexander Work Phone: [facility] 10-28-2022 17:05-0400 Diastolic blood pressure 90 mm[Hg] Dr. Ada Alexander Work Phone: [facility] 10-28-2022 17:05-0400 Heart rate 67 /min Dr. Ada Alexander Work Phone: [facility] 10-28-2022 17:05-0400 Respiratory rate 16 /min Dr. Ada Alexander Work Phone: [facility] 10-28-2022 17:05-0400 SaO2% (BldA) [Mass fraction] 96 % Dr. Ada Alexander Work Phone: [facility] 10-28-2022 17:05-0400 Systolic blood pressure 162 mm[Hg] Dr. Ada Alexander Work Phone: [facility] 06-09-2022 14:54-0500 Diastolic blood pressure 77 mm[Hg] Dr. Ada Alexander Work Phone: [facility] 06-09-2022 14:54-0500 Heart rate 67 /min Dr. Ada Alexander Work Phone: [facility] 06-09-2022 14:54-0500 Respiratory rate 16 /min Dr. Ada Alexander Work Phone: [facility] 06-09-2022 14:54-0500 Systolic blood pressure 141 mm[Hg] Dr. Ada Alexander Work Phone: [facility] 12-09-2021 16:36-0400 Diastolic blood pressure 71 mm[Hg] Dr. Ada Alexander Work Phone: [facility] Work Phone: 12-09-2021 16:36-0400 Heart rate 61 /min Dr. Ada Alexander Work Phone: [facility] Work Phone: 12-09-2021 16:36-0400 Respiratory rate 16 /min Dr. Ada Alexander Work Phone: [facility] Work Phone: 12-09-2021 16:36-0400 SaO2% (BldA) [Mass fraction] 92 % Dr. Ada Alexander Work Phone: [facility] 12-09-2021 16:36-0400 Systolic blood pressure 140 mm[Hg] Dr. Ada Alexander Work Phone: [facility] Work Phone: 12-09-2021 16:12-0400 Body mass index (BMI) [Ratio] 36.2 kg/m2 Dr. Ada Alexander Work Phone: [facility] 12-09-2021 15:00-0400 Body height 189.[address] Ada Alexander Work Phone: [facility] Work Phone: 12-09-2021 15:00-0400 Body mass index (BMI) [Ratio] 35.6 kg/m2 Dr. Ada Alexander Work Phone: [facility] Work Phone: 12-09-2021 15:00-0400 Body temperature 97.6 [degF] Dr. Ada Alexander Work Phone: [facility] Work Phone: 12-09-2021 15:00-0400 Body weight 127.[address] Ada Alexander Work Phone: [facility] Work Phone: 12-09-2021 15:00-0400 Diastolic blood pressure 73 mm[Hg] Dr. Ada Alexander Work Phone: [facility] Work Phone: 12-09-2021 15:00-0400 Heart rate 66 /min Dr. Ada Alexander Work Phone: [facility] Work Phone: 12-09-2021 15:00-0400 Respiratory rate 16 /min Dr. Ada Alexander Work Phone: [facility] Work Phone: 12-09-2021 15:00-0400 SaO2% (BldA) [Mass fraction] 93 % Dr. Ada Alexander Work Phone: [facility] Work Phone: 12-09-2021 15:00-0400 Systolic blood pressure 145 mm[Hg] Dr. Ada Alexander Work Phone: [facility] Work Phone: 09-16-2021 12:41-0400 Body height 187.9 cm Ada Alexander Other Phone: [facility] 09-16-2021 12:41-0400 Body temperature 98.42 [degF] Ada Alexander Other Phone: [facility] 09-16-2021 12:41-0400 Diastolic blood pressure 90 mm[Hg] Ada Alexander Other Phone: [facility] 09-16-2021 12:41-0400 Heart rate 61 /min Ada Alexander Other Phone: [facility] 09-16-2021 12:41-0400 Respiratory rate 16 /min Ada Alexander Other Phone: [facility] 09-16-2021 12:41-0400 SaO2% (BldA) [Mass fraction] 95 % Ada Alexander Other Phone: [facility] 09-16-2021 12:41-0400 Systolic blood pressure 168 mm[Hg] Ada Alexander Other Phone: [facility] 06-02-2021 12:03-0500 Body weight 129.[address] Ada Alexander Work Phone: [facility] 12-31-2020 13:46-0400 Body height 187.9 cm Ada Alexander Other Phone: [facility] 12-31-2020 13:46-0400 Body temperature 98.24 [degF] Ada Alexander Other Phone: [facility] 12-31-2020 13:46-0400 Diastolic blood pressure 73 mm[Hg] Ada Alexander Other Phone: [facility] 12-31-2020 13:46-0400 Heart rate 60 /min Ada Alexander Other Phone: [facility] 12-31-2020 13:46-0400 Respiratory rate 16 /min Ada Alexander Other Phone: [facility] 12-31-2020 13:46-0400 SaO2% (BldA) [Mass fraction] 97 % Ada Alexander Other Phone: [facility] 12-31-2020 13:46-0400 Systolic blood pressure 124 mm[Hg] Ada Alexander Other Phone: [facility] 04-30-2020 14:09-0500 Body temperature 97.3 [degF] Dr. Ada Alexander Work Phone: [facility] 11-15-2016 14:00-0400 BMI (Body Mass Index) 38.43 kg/m2 [facility]i [facility] Work Phone: 11-15-2016 14:00-0400 Body weight 137.62 kg [facility] Work Phone: 11-15-2016 14:00-0400 BP Diastolic 80 mm[Hg] [facility] Work Phone: 11-15-2016 14:00-0400 BP Systolic 144 mm[Hg] [facility] Work Phone: 11-15-2016 14:00-0400 Pulse (Heart Rate) 56 /min [facility] Work Phone: 11-15-2016 14:00-0400 Weight 137.62 kg [facility] Work Phone: 07-27-2016 10:38-0500 BMI (Body Mass Index) 37.92 kg/m2 [facility] Work Phone: 07-27-2016 10:38-0500 Body Temperature 97.5 [degF] [facility] Work Phone: 07-27-2016 10:38-0500 Body weight 136.09 kg Yamini Lim [facility] Work Phone: 07-27-2016 10:38-0500 BP Diastolic 79 mm[Hg] Latoya Bynum RN [facility] Work Phone: 07-27-2016 10:38-0500 BP Systolic 123 mm[Hg] Latoya Bynum RN [facility] Work Phone: 07-27-2016 10:38-0500 BSA (Body Surface Area) 2.59 m2 Latoya Bynum RN [facility] Work Phone: 07-27-2016 10:38-0500 Height 189.23 cm Latoya Bynum RN [facility] Work Phone: 07-27-2016 10:38-0500 Pulse (Heart Rate) 60 /min [facility] Work Phone: 07-27-2016 10:38-0500 Pulse Oximetry 95 % Latoya Bynum RN [facility] Work Phone: 07-27-2016 10:38-0500 Respiratory Rate 20 /min [facility] Work Phone: 07-27-2016 10:38-0500 Weight 135.81 kg Latoya Bynum RN [facility] Work Phone: 07-27-2016 10:38-0500 Weight 136.09 kg [facility] Work Phone: 07-07-2016 11:20-0500 Heart rate 57 /min Yamini Lim [facility] Work Phone: 06-04-2016 08:01-0500 Height 189.23 cm [facility] Work Phone: 04-27-2016 [id number] Body surface area Derived from formula 89.70 mL/min [facility] Work Phone: 01-27-2016 11:18-0400 Body Temperature 98.29 [degF] [facility] Work Phone: Encounters Encounter Date Encounter Type Care Provider Facility Start: 05-11-2025 ambulatory [facility] Facility: [facility] Start: 05-02-2025 ambulatory [facility] Facility: [facility] Start: 04-22-2025 End: 04-22-2025 Emergency department patient visit [facility] Facility:[facility] Start: 04-20-2025 End: 04-20-2025 Emergency department patient visit [facility] Facility:[facility] Start: 11-27-2024 Registered Recurring Gabriela [facility] Start: 11-27-2024 End: 11-27-2024 Patient encounter procedure Gabriela [facility] Work Phone: Start: 11-27-2024 End: 11-27-[address] Ada Alexander DO Work Phone: [facility] Work Phone: Start: 07-28-2024 ambulatory Ada [facility] Facility: [facility] Start: 07-12-2024 End: 07-12-2024 ambulatory [facility] Facility:[facility] Start: 06-22-2024 End: 06-22-2024 ambulatory [facility] Facility:[facility] Start: 06-19-2024 End: 06-19-2024 ambulatory Ada [facility] Facility:[facility] Start: 06-06-2024 End: 06-06-2024 ambulatory [facility] Facility:[facility] Start: 05-30-2024 End: 05-30-2024 ambulatory Ada Alexander Facility:[facility] Start: 05-25-2024 End: 05-26-2024 ambulatory Ada [facility] Facility:[facility] Start: 05-07-2024 End: 05-07-2024 ambulatory Ada Alexander Facility:[facility] Start: 03-19-2024 End: 03-19-2024 ambulatory ARI Frias [facility] Start: 03-16-2024 End: 03-16-2024 ambulatory [facility] Start: 03-09-2024 End: 03-09-2024 ambulatory [facility] Start: 03-05-2024 End: 03-05-2024 ambulatory [facility] Start: 02-24-2024 End: 02-24-2024 ambulatory [facility] Start: 02-20-2024 End: 02-20-2024 ambulatory [facility] Start: 02-16-2024 End: 02-16-20[facility] Start: 10-20-2023 End: 10-25-[address] Ada Alexander Work Phone: [facility] Work Phone: Start: 10-20-2023 End: 10-25-[address] Ada Alexander Work Phone: [facility] Work Phone: Start: 09-22-2023 End: 09-25-[address] Ada Alexander Work Phone: [facility] Work Phone: Start: 09-22-2023 End: 09-25-[address] Ada Alexander Work Phone: [facility] Work Phone: Start: 09-01-2023 End: 09-01-[address] Ada Alexander Work Phone: [facility] Work Phone: Start: 08-01-2023 End: 08-01-2023 Emergency department patient visit Dr. Ada Alexander Work Phone: [facility] Work Phone: Start: 07-11-2023 End: 07-11-[address] Ada Alexander Work Phone: [facility] Work Phone: Start: 07-11-2023 End: 07-11-[address] Ada Alexander Work Phone: [facility] Work Phone: Start: 06-14-2023 End: 06-14-[address] Ada Alexander Work Phone: [facility] Work Phone: Start: 06-14-2023 End: 06-14-[address] Ada Alexander Work Phone: [facility] Work Phone: Start: 06-01-2023 End: 06-01-[address] Ada Alexander Work Phone: [facility] Work Phone: Start: 06-01-[address] Ada Alexander Work Phone: [facility] Start: 03-22-2023 End: 03-22-[address] Ada Alexander Work Phone: [facility] Work Phone: Start: 03-22-2023 End: 03-22-[address] Ada Alexander Work Phone: [facility] Work Phone: Start: 03-22-2023 End: 03-22-[address] Ada Alexander Work Phone: [facility] Work Phone: Start: 03-09-2023 End: 03-09-2023 Admission to same day surgery center Dr. Ada Alexander Work Phone: [facility] Work Phone: Start: 03-09-2023 End: 03-09-[address] Ada Alexander Work Phone: [facility] Work Phone: Start: 02-13-2023 Non-patient / Non-visit Dr. Janae Alexander Work Phone: [facility] Start: 01-28-2023 Non-patient / Non-visit Dr. Janae Alexander Work Phone: [facility] Work Phone: Start: 01-28-2023 Non-patient / Non-visit Dr. Janae Alexander Work Phone: [facility] Start: 01-28-2023 End: 01-28-[address] Ada Alexander Work Phone: [facility] Work Phone: Start: 01-28-2023 End: 01-28-[address] [facility] Work [facility]: Start: 01-20-2023 End: 01-20-[address] Ada Alexander Work Phone: [facility] Work Phone: Start: 01-18-2023 End: 01-18-2023 Emergency department patient visit Dr. Ada Alexander Work Phone: [facility] Work Phone: Start: 12-08-[address] Ada Alexander Work Phone: [facility] Start: 12-08-2022 End: 12-08-[address] Ada Alexander Work Phone: [facility] Work Phone: Start: 10-28-2022 End: 10-28-[address] Ada Alexander Work Phone: [facility] Work Phone: Start: 12-15-2021 End: 12-15-[address] Ada Alexander Work Phone: [facility] Start: 12-09-2021 End: 12-09-[address] Ada Alexander Work Phone: [facility] Start: 12-09-[address] Ada Alexander Work Phone: [facility] Start: 09-16-2021 End: 09-16-2021 Emergency department patient visit [facility] 02 Start: 12-31-2020 End: 12-31-2020 Emergency department patient visit [facility] 02 Start: 06-19-2018 End: 09-15-2018 Patient encounter procedure Ray Leia Facility:[facility] Procedures Date Procedure Procedure Detail [...] medications Yamini Lim Start: 11-15-2016 End: 11-15-2016 RADIOPHONE OPERATOR Latoya Wadsworth PA-C Work Phone: Start: 11-15-2016 End: 11-15-2016 Follow Up Appt 6 months Latoya melchor PA-C Work Phone: Start: 07-27-2016 End: 07-27-2016 Dietary management education, guidance, and counseling Yamini Lim Start: 07-27-2016 End: 07-27-2016 *CMP Complete Metabolic Panel Eddie Villalta Work Phone: Start: 07-27-2016 End: 07-27-2016 Ferritin Eddie Villalta Work Phone: Start: 07-27-2016 End: 07-27-2016 Iron Eddie Villalta Work Phone: Start: 07-27-2016 End: 07-27-2016 Iron binding capacity [Mass/volume] in Serum or Plasma Eddie Villalta Work Phone: Start: 07-27-2016 End: 07-27-2016 Lactate dehydrogenase (LDH) Eddie Clark gonzáles Work Phone: Start: 07-27-2016 End: 07-27-2016 Urate Eddie Villalta Work Phone: Start: 07-07-2016 End: 07-07-2016 Electrocardiogram, complete Faustino Howard i, MD Start: 07-07-2016 End: 07-07-2016 Follow Up Appt 4 months Tomy Ramirez Start: 07-07-2016 End: 07-07-2016 MMM Faustino Chin MD Start: 06-04-2016 End: 06-04-2016 RADIOPHONE OPERATOR Faustino Chin MD Start: 06-04-2016 End: 06-11-2016 Echocardiography Faustino Chin MD Start: 06-04-2016 End: 06-04-2016 Follow Up Appt 6 weeks Faustino Chin MD Start: 04-27-2016 End: 04-27-2016 *CMP Complete Metabolic Panel Eddie Huitron Alam Work Phone: Start: 04-27-2016 End: 04-27-2016 Ferritin Eddie Huitron Alam Work Phone: Start: 04-27-2016 End: 04-27-2016 Iron Eddie Huitron Alam Work Phone: Start: 04-27-2016 End: 04-27-2016 Iron binding capacity [Mass/volume] in Serum or Plasma Eddie Huitron Alam Work Phone: Start: 04-27-2016 End: 04-27-2016 Lactate dehydrogenase (LDH) Morgan Tomy A gonzáles Work Phone: Start: 04-27-2016 End: 04-27-2016 Urate Eddie Huitron Alam Work Phone: Start: 01-23-2016 End: 01-26-2016 *CBC with Differential Morgan Tomy Alam Work Phone: Start: 01-23-2016 End: 01-26-2016 *CMP Complete Metabolic Panel Morgan Tomy Alam Work Phone: Start: 01-23-2016 End: 01-26-2016 Ferritin Eddie Huitron Alam Work Phone: Start: 01-23-2016 End: 01-26-2016 Lactate dehydrogenase (LDH) Eddie M A gonzáles Work Phone: Start: 01-23-2016 End: 01-26-2016 Urate Morgan M Alam Work Phone: Start: 11-25-2015 End: 11-26-2015 *CMP Complete Metabolic Panel Eddie Villalta Work Phone: Start: 11-25-2015 End: 11-26-2015 Lactate dehydrogenase (LDH) Eddie gonzáles Work Phone: Start: 11-25-2015 End: 11-26-2015 Urate Eddie Villalta Work Phone: Start: 10-15-2015 End: 10-28-2015 *CMP Complete Metabolic Panel Lalito H Machelle DO Start: 10-15-2015 End: 10-28-2015 Ferritin Lalito H Machelle DO Start: 10-15-2015 End: 10-28-2015 Lactate dehydrogenase (LDH) Lalito H Ac harya DO Start: 10-15-2015 End: 10-28-2015 Urate Lalito H Machelle DO Start: 07-15-2015 End: 07-15-2015 *CMP Complete Metabolic Panel Lalito H Machelle DO Start: 07-15-2015 End: 07-15-2015 Ferritin Lalito H Machelle DO Start: 07-15-2015 End: 07-15-2015 Lactate dehydrogenase (LDH) Lalito H Ac harya DO Start: 07-15-2015 End: 07-15-2015 Urate Lalito H Machelle DO Start: 04-16-2015 End: 04-16-2015 Smoking cessation education Yamini Lim Start: 04-16-2015 End: 04-16-2015 *CMP Complete Metabolic Panel Eddie Villalta Work Phone: Start: 04-16-2015 End: 04-16-2015 Lactate dehydrogenase (LDH) Eddie gonzáles Work Phone: Start: 04-16-2015 End: 04-16-2015 Urate Eddie Villalta Work Phone: Start: 01-15-2015 End: 01-21-2015 *CMP Complete Metabolic Panel Eddie Villalta Work Phone: Start: 01-15-2015 End: 01-21-2015 Lactate dehydrogenase (LDH) Eddie gonzáles Work Phone: Start: 01-15-2015 End: 01-21-2015 Urate Eddie Villalta Work Phone: Start: 10-16-2014 End: 10-16-2014 *CMP Complete Metabolic Panel Eddie Villalta Work Phone: Start: 10-16-2014 End: 10-16-2014 Ferritin Eddie Villalta Work Phone: Start: 10-16-2014 End: 10-16-2014 Lactate dehydrogenase (LDH) Eddie gonzáles Work Phone: Start: 10-16-2014 End: 10-16-2014 Urate Eddie Villalta Work Phone: Start: 07-17-2014 End: 10-10-2014 *CBC with Differential Eddie Villalta Work Phone: Start: 07-17-2014 End: 10-10-2014 Ferritin Eddie Villalta Work Phone: Start: 06-27-2012 End: 06-27-2012 Aster Lim Plan of Treatment Date Care Activity Detail Author Start: 11-27-2024 Phlebotomy [facility] Start: 11-27-2024 [facility] Start: 05-30-2024 Phlebotomy [facility] Start: 08-01-2023 Incentive spirometry [facility] Start: 08-01-2023 [facility] Start: 06-01-2023 Phlebotomy [facility] Start: 06-09-2022 Phlebotomy [facility] Start: 12-09-2021 Phlebotomy [facility] Start: 06-02-2021 Phlebotomy [facility] Start: 05-02-2019 Flushing of Port-a-cath [facility] Work Phone: Start: 05-02-2019 Irrigation of vascular catheter [facility] Start: 05-11-2018 Ferritin [Mass/volume] in Serum or Plasma [facility] Start: 04-29-2017 End: 04-29-2017 Appointment Appointment [facility] Work Phone: Start: 04-29-2017 End: 04-29-2017 Appointment Appointment [facility] Work Phone: Start: 11-15-2016 End: 11-15-2016 Appointment [facility] Work Phone: Start: 11-15-2016 End: 11-15-2016 RADIOPHONE OPERATOR RADIOPHONE OPERATOR [facility] Work Phone: Start: 11-15-2016 End: 07-27-2016 Echo exam of abdomen US Abdomen, limited [facility] Work Phone: Start: 11-15-2016 End: 11-15-2016 Follow Up Appt 6 months Follow Up Appt 6 months [facility] [employer] Work Phone: Start: 10-25-2016 Ferritin [Mass/volume] in Serum or Plasma [facility] Start: 10-25-2016 Iron [Mass/mass] in Unspecified specimen [facility] Start: 10-18-2016 End: 07-27-2016 *CBC w/Diff - oncology ONLY *CBC w/Diff - oncology ONLY [facility] [employer] Work Phone: Start: 10-18-2016 End: 07-27-2016 *CMP Complete Metabolic Panel *CMP Complete Metabolic Panel [facility] [employer] Work Phone: Start: 10-18-2016 End: 07-27-2016 [id number] (AFP) tumor marker *AFPT - Alpha-Fetoprotein -Serum [facility] [employer] Work Phone: Start: 10-18-2016 End: 07-27-2016 Ferritin *Ferritin [facility] Work Phone: Start: 10-18-2016 End: 07-27-2016 Iron *Iron [facility] Work Phone: Start: 10-18-2016 End: 07-27-2016 Iron binding capacity [Mass/volume] in Serum or Plasma *TIBC [facility] Work Phone: Start: 07-27-2016 End: 01-27-2016 *CBC with Differential *CBC with Differential [employer] [facility] [employer] Work Phone: Start: 07-27-2016 End: 07-27-2016 *CMP Complete Metabolic Panel *CMP Complete Metabolic Panel [facility] [employer] Work Phone: Start: 07-27-2016 End: 07-27-2016 Ferritin *Ferritin [facility] [employer] Work Phone: Start: 07-27-2016 End: 07-27-2016 Iron *Iron [facility] [employer] Work Phone: Start: 07-27-2016 End: 07-27-2016 Iron binding capacity [Mass/volume] in Serum or Plasma *TIBC [facility] [employer] Work Phone: Start: 07-27-2016 End: 07-27-2016 Lactate dehydrogenase (LDH) *LDH -LDH (Lactate Dehydrogenase) [facility] [employer] Work Phone: Start: 07-27-2016 End: 07-27-2016 Urate *Uric Acid Blood [employer] [facility] [employer] Work Phone: Start: 07-07-2016 End: 07-07-2016 Electrocardiogram, complete EKG (In office) [employer] [facility] [employer] Work Phone: Start: 07-07-2016 End: 07-07-2016 Follow Up Appt 4 months Follow Up Appt 4 months [facility] [employer] Work Phone: Start: 07-07-2016 End: 07-07-2016 MMM MMM [employer] [facility] [employer] Work Phone: Start: 06-04-2016 End: 06-04-2016 RADIOPHONE OPERATOR RADIOPHONE OPERATOR [employer] [facility] [employer] Work Phone: Start: 06-04-2016 End: 06-04-2016 Echocardiography Echocardiogram (complete) [employer] [facility] [employer] Work Phone: Start: 06-04-2016 End: 06-04-2016 Follow Up Appt 6 weeks Follow Up Appt 6 weeks [facility] [employer] Work Phone: Start: 04-27-2016 End: 01-27-2016 *CBC with Differential *CBC with Differential [employer] [facility] [employer] Work Phone: Start: 04-27-2016 End: 04-27-2016 *CMP Complete Metabolic Panel *CMP Complete Metabolic Panel [facility] Work Phone: Start: 04-27-2016 End: 04-27-2016 Ferritin *Ferritin [facility] Work Phone: Start: 04-27-2016 End: 04-27-2016 Iron *Iron [facility] Work Phone: Start: 04-27-2016 End: 04-27-2016 Iron binding capacity [Mass/volume] in Serum or Plasma *TIBC [facility] Work Phone: Start: 04-27-2016 End: 04-27-2016 Lactate dehydrogenase (LDH) *LDH -LDH (Lactate Dehydrogenase) [facility] Work Phone: Start: 04-27-2016 End: 04-27-2016 Urate *Uric Acid Blood [facility] Work Phone: Start: 01-23-2016 End: 01-26-2016 *CBC with Differential *CBC with Differential [facility] Work Phone: Start: 01-23-2016 End: 01-26-2016 *CMP Complete Metabolic Panel *CMP Complete Metabolic Panel [facility] Work Phone: Start: 01-23-2016 End: 01-26-2016 Ferritin *Ferritin [facility] Work Phone: Start: 01-23-2016 End: 01-26-2016 Lactate dehydrogenase (LDH) *LDH -LDH (Lactate Dehydrogenase) [facility] Work Phone: Start: 01-23-2016 End: 01-26-2016 Urate *Uric Acid Blood [facility] Work Phone: Start: 11-25-2015 End: 11-26-2015 *CMP Complete Metabolic Panel *CMP Complete Metabolic Panel [facility] Work Phone: Start: 11-25-2015 End: 11-26-2015 Lactate dehydrogenase (LDH) *LDH -LDH (Lactate Dehydrogenase) [facility] Work Phone: Start: 11-25-2015 End: 11-26-2015 Urate *Uric Acid Blood [facility] Work Phone: Start: 10-15-2015 End: 04-16-2015 *CBC with Differential *CBC with Differential [facility] Work Phone: Start: 10-15-2015 End: 10-28-2015 *CMP Complete Metabolic Panel *CMP Complete Metabolic Panel [facility] Work Phone: Start: 10-15-2015 End: 10-28-2015 Ferritin *Ferritin [facility] Work Phone: Start: 10-15-2015 End: 10-28-2015 Lactate dehydrogenase (LDH) *LDH -LDH (Lactate Dehydrogenase) [facility] Work Phone: Start: 10-15-2015 End: 10-28-2015 Urate *Uric Acid Blood [facility] Work Phone: Start: 07-15-2015 End: 04-16-2015 *CBC with Differential *CBC with Differential [facility] Work Phone: Start: 07-15-2015 End: 07-15-2015 *CMP Complete Metabolic Panel *CMP Complete Metabolic Panel [facility] Work Phone: Start: 07-15-2015 End: 07-15-2015 Ferritin *Ferritin [facility] Work Phone: Start: 07-15-2015 End: 07-15-2015 Lactate dehydrogenase (LDH) *LDH -LDH (Lactate Dehydrogenase) [facility] Work Phone: Start: 07-15-2015 End: 07-15-2015 Urate *Uric Acid Blood [facility] Work Phone: Start: 04-16-2015 End: 01-01-2015 *CBC with Differential *CBC with Differential [facility] Work Phone: Start: 04-16-2015 End: 04-16-2015 *CMP Complete Metabolic Panel *CMP Complete Metabolic Panel [facility] Work Phone: Start: 04-16-2015 End: 04-16-2015 Lactate dehydrogenase (LDH) *LDH -LDH (Lactate Dehydrogenase) [facility] Work Phone: Start: 04-16-2015 End: 04-16-2015 Urate *Uric Acid Blood [facility] Work Phone: Start: 01-15-2015 End: 01-01-2015 *CBC with Differential *CBC with Differential [facility] Work Phone: Start: 01-15-2015 End: 01-15-2015 *CMP Complete Metabolic Panel *CMP Complete Metabolic Panel [facility] Work Phone: Start: 01-15-2015 End: 01-15-2015 Lactate dehydrogenase (LDH) *LDH -LDH (Lactate Dehydrogenase) [facility] Work Phone: Start: 01-15-2015 End: 01-15-2015 Urate *Uric Acid Blood [facility] Work Phone: Start: 10-16-2014 End: 10-10-2014 *CBC with Differential *CBC with Differential [facility] Work Phone: Start: 10-16-2014 End: 10-16-2014 *CMP Complete Metabolic Panel *CMP Complete Metabolic Panel [facility] Work Phone: Start: 10-16-2014 End: 10-16-2014 Ferritin *Ferritin [facility] Work Phone: Start: 10-16-2014 End: 10-16-2014 Lactate dehydrogenase (LDH) *LDH -LDH (Lactate Dehydrogenase) [facility] Work Phone: Start: 10-16-2014 End: 10-16-2014 Urate *Uric Acid Blood [facility] Work Phone: Start: 07-17-2014 End: 10-10-2014 *CBC with Differential *CBC with Differential [facility] Work Phone: Start: 07-17-2014 End: 10-10-2014 Ferritin *Ferritin [facility] Work Phone: CBC W Auto Different ial panel - Blood [facility] Work Phone: CBC W Auto Different ial panel - Blood [facility] CBC W Auto Different ial panel - Blood [facility] Comprehensive metabo lic 2000 panel - Serum or Plasma [facility] Ferritin [Mass/volum e] in Serum or Plasma [facility] Work Phone: Ferritin [Mass/volum e] in Serum or Plasma [facility] Ferritin [Mass/volum e] in Serum or Plasma [facility] Lactate dehydrogenas e measurement [facility] Patient Education [facility] Work Phone: Patient referral [facility] Work Phone: US Abdomen limited [facility] Immunizations Immunization Date Immunization Notes Care Provider Fa [facility] 05-16-[address] Ada Alexander Work Phone: [facility] 03-27-[address] Ada Alexander Work Phone: [facility] Payers Date Payer Category Payer Medicare 2018 Unknown 2017 Medicare [id number] [facility] [id number] 2017 Unknown [id number] 2016 Self-pay [id number] 2016 Unknown [id number] 1952 Unknown [id number] 1950 Unknown [id number] 40.1.500534.3.579.2.1243 1950 Unknown [id number] 2.16.8 40.1.865313.3.579.2.1243 1950 Unknown [id number] 2.16.8 40.1.474007.3.579.2.1243 1950 Unknown [id number] 2.16.8 40.1.453785.3.579.2.1243 1950 Unknown [id number] 2.16.8 40.1.714701.3.579.2.1243 1950 Unknown [id number] 2.16.8 40.1.628575.3.579.2.1243 1950 Unknown [id number] 2.16.8 40.1.607543.3.579.2.1243 Unknown [id number] 2.16.8 40.1.784599.3.579.2.462 Unknown [id number] 2.16.8 40.1.887585.3.579.2.462 Unknown [id number] 2.16.8 40.1.883407.3.579.2.462 Unknown [id number] 2.16.8 40.1.496779.3.579.2.462 Unknown [id number] 2.16.8 40.1.599562.3.579.2.462 Unknown [id number] 2.16.8 40.1.046282.3.579.2.462 Unknown [id number] 2.16.8 40.1.139844.3.579.2.462 Unknown [id number] 2.16.8 40.1.996609.3.579.2.462 Unknown [id number] 2.16.8 40.1.555822.3.579.2.462 Unknown [id number] 2.16.8 40.1.056896.3.579.2.462 Unknown [id number] 2.16.8 40.1.688881.3.579.2.462 Unknown [id number] 2.16.8 40.1.713152.3.579.2.462 Unknown [id number] 2.16.8 40.1.620231.3.579.2.462 Unknown [id number] 2.16.8 40.1.300256.3.579.2.462 Unknown [id number] 2.16.8 40.1.656351.3.579.2.462 Social History Date Type Detail Facility [facility] Start: 05-26-2021 End: 09-01-2023 Tobacco smoking consumption unknown [facility] Start: 1950 Sex Assigned At Male [facility] Start: 09-01-2023 Tobacco smoking status NHIS Never smoked tobacco (finding) [facility] Medical Equipment Procedure Code Equipment Code [...] Start: 06-14-2018 Primary uncemented total hip replacement [facility] judi had[facility] Start: 06-14-2018 Mental Status Date Assessment Result Facility 05-30-2024 Cognitive function Voice/Name [facility] Work Phone: 08-01-2023 Cognitive function Awake;Alert;A ppropriate;Elizao ws Commands [facility] Work Phone: 06-01-2023 Cognitive function Awake;Alert;A ppropriate;Follo ws Commands [facility] Work Phone: 01-18-2023 Cognitive function Level Of Cons ciousness Awake;Alert;Appropriate [facility] Work Phone: 12-09-2021 Cognitive function Level Of Cons ciousness Awake;Alert;Appropriate;Follo ws Commands [facility] Work Phone: 06-02-2021 Cognitive function Voice/Name [facility] Work Phone: Clinical Notes 02-14-2023 to 11-27-2024 Note Date & Type Note Facility 11-27-2024 Progress note [facility] 08-01-2023 Discharge summary Note Date/Time August 01, 2023 5:50pm [facility] Medical Records Department [address] [place] [address] Emergency Department Summary 08/01/23 MR#: [id number] Acct: [id number] Name: EDWIGE MAHMOOD Rep #:[id number] : 1950 72 From: Jose Luis Bell [...] in the urine. Not lightheaded or dizzy. [facility] Medical History Acute otitis externa of left ear Acute pharyngitis, unspecified Alcohol use Arthritis Back pain BiPAP (biphasic positive airway pressure) dependence Cirrhosis Depression Diverticulitis Essential (primary) hypertension Hemochromatosis Hyperlipidemia Hypertension Leg cramps Meniere disease Non-smoker Obesity MAURI (obstructive sleep apnea) Paroxysmal atrial flutter Personal history of colonic polyps Vertigo Wears dentures Wears hearing aid Wears partial dentures Home Medications abhtqdxy-wjg-okhcu acid 0.4 mg-lycopene 300 mcg-lutein 250 mcg [...] Intermediate Pain in Verified 06/01/23 14:42 joints Hybfuoi-NBR-IaF Reductase AdvReac Unknown Verified 06/01/23 14:42 Inhibitor [Qtbynrh-Unv-Axf Reductase Inhibitor] Family History Mother COPD (chronic [...] 15 mg tablet 15 mg PO DAILY ohqrizdx-flm-ZO-lycopen-lutein 1 EACH tablet 1 ea PO DAILY [...] your Primary Care Provider. Call [facility] ([phone]) or report to the closest Emergency Room. Call 911 if necessary. 08/01/23 6780 <Electronically signed by Jose Luis Bell MD> Cosigner Signature (if applicable): CC: Dr. Ada Alexander DO ~ Signed [facility] Work Phone: 1(107) 817-466308-21-2023 History and physical note Author Faustino Chin [facility] February 14, 2023 3:35pm Note Date/Time February 13, 2023 8: 52am [facility] Medical Records Department [address] [place] [address] History & Physical Exam 02/13/23 0846 MR#: [id number] Acct: [id number] Name: EDWIGE MAHMOOD Rep #:[id number] : 1950 72 From: Faustino Chin MD PCP: Dr. Ada Alexander, DO Status:PRE [facility] Location: [facility] History and Physical Date of Admission: 03/09/23 Edwige Mahmood is a 72 year-old gentleman that presents [...] Vital Signs: See EMR [facility] Professional Ergonomist Required: No Is patient in pain?: No Allergies Penicillins [PCN] Allergy (Severe, Verified 01/20/23 10:29) Hives nabumetone [From Relafen] Allergy (Verified 01/20/23 10:29) Unknown ezetimibe [From Zetia] Adverse Reaction (Intermediate, Verified 01/20/23 10:29) Pain in joints Llrdwwx-APU-QbR Reductase Inhibitor [Fcqipws-Wgl-Mon Reductase Inhibitor] Adverse Reaction (Verified 01/20/23 10:29) Unknown Medications See EMR [facility] Medical History Acute otitis externa of left [...] SOB with activity, SOB at rest, SOB orthopnea\\SOB lying down, Cough or paroxysmal nocturnal dyspnea [...] Chin MD> Cosigner Signature (if applicable): 02/13/23 6852 <Electronically signed by Brandan CANTOR> CC: DEVAUGHN Ma; Dr. Faustino Chin MD; Dr. Ada Alexander, DO~ Signed [facility] Work Phone: Evaluation note* Diagnosis Onset Date Resolution Status Hemochromatosis chronic Hemochromatosis [facility] Work Phone: Evaluation note* Diagnosis Onset Date Resolution Status Acute otitis externa of left ear acute Acute pharyngitis, unspecified acute Hemochromatosis chronic Hemochromatosis chronic Fatigue acute Essential (primary) hypertension chronic Hyperlipidemia chronic Paroxysmal atrial flutter [facility] Work Phone: Evaluation note* Diagnosis Onset Date Resolution Status Hemochromatosis chronic Hemochromatosis chronic Fatigue acute Essential (primary) hypertension chronic Hyperlipidemia chronic Paroxysmal atrial flutter [facility] Work Phone: Evaluation note* Diagnosis Onset Date Resolution Status Hemochromatosis chronic Hemochromatosis chronic Fatigue acute Essential (primary) hypertension chronic Hyperlipidemia chronic Paroxysmal atrial flutter [facility] Essential (primary) hypertension chronic Hyperlipidemia chronic Paroxysmal atrial flutter [facility] Work Phone: Evaluation note* Diagnosis Onset Date Resolution Status Essential (primary) hypertension chronic Hyperlipidemia [facility] Diagnosis Onset Date Resolution Status Hemochromatosis chronic Hemochromatosis chronic Essential (primary) hypertension chronic Hyperlipidemia 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 Paroxysmal atrial flutter [facility] Work Phone: Evaluation note* Diagnosis Onset Date Resolution Status Essential (primary) hypertension chronic Hyperlipidemia 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 Paroxysmal atrial flutter [facility] Work Phone: Evaluation note* Diagnosis Onset Date Resolution Status Admit Date Hemochromatosis chronic November 27, 2024 1:35pm Hemochromatosis chronic November 27, 2024 1:45pm [facility] Work Phone: [facility] Work Phone: Hospital Discharge instructionsAmbulatory Orders* Iron Facility: [facility], Location: Laboratory * Ferritin Facility: [facility], Location: Laboratory * Ferritin Location: Laboratory [facility] Work Phone: Progress note Author Gabriela Crews [facility] Note Date/Time November 27, 2024 2:59p m [facility] [address] [address] OFFICE VISIT Date of Service: 11/27/24 1417 MR#: [id number] Acct: [id number] Name: EDWIGE MAHMOOD Rep #: [id number] : 1950 From: Gabriela Álvarez ch, NP QUALITY ASSURANCE PRACTICE MANAGER-C Age/Sex: 74/M Location: [facility] Status: Signed HPI Subjective Date of Service [...] his bowelhabits, and swelling/pain of his extremities. [facility] Medical History Acute otitis externa of left [...] (Intermediate, Verified 11/27/24 14:22) Pain in joints Ahdqvdy-DBI-IuX Reductase Inhibitor (Plbwlmn-Cnd-Tbr Reductase Inhibitor) Adverse Reaction (Verified 11/27/24 14:22) Unknown Medications ?Medication ?Instructions ?Recorded ?Confirmed ?Type xnpbchlm-efm-rssor acid 0.4 1 ea PO DAILY SUPPLEMENT [...] 15 mg tablet 15 mg PO DAILY 01/20/23/09/18 History apixaban 5 mg tablet 5 mg [...] past year?: Yes (fell down stairs) 11/27/24 1459 <Electronically signed by Gabriela warren QUALITY ASSURANCE PRACTICE MANAGER QUALITY ASSURANCE PRACTICE MANAGER-C> Date _ Gabriela Crews QUALITY ASSURANCE PRACTICE MANAGER QUALITY ASSURANCE PRACTICE MANAGER-C Cosigner Signature: Date (if applicable) CC: ~ [facility] Work Phone: Reason for referral (narrative)No reason for referral information availableLong Beach Doctors Hospital Work Phone: Summary Purpose Family History No Family History Records Found Relationship Condition Age at Onset Recorded Date/T lynette mother Chronic obstructive pulmonary disease Unk nown father Cardiac disease Unknown Advance Directives No Advanced Directives Records Found Advance Directive Response Recorded Date/ Time Advance Directives Yes May 11:54am Living Will Yes May 26, 4:42pm Power of Network Support Administrator Yes May 26, 2021 4:42pm Advance Directive Response Recorded Date/ Time Advance Directives Yes May 11:54am Living Will No January 18, 2023 3:06pm Power of Network Support Administrator No January 18 3:06pm Advance Directive Response Recorded Date/ Time Advance Directives on File No 2022 2:24pm Advance Directives No February 2:24pm Living Will No March 08, 2023 2:24pm Power of Network Support Administrator No February 2:24pm Advance Directive Response Recorded Date/ Time Advance Directives on File No 2022 1:24pm Advance Directives No February 1:24pm Living Will No March 08, 2023 1:24pm Power of Network Support Administrator No February 1:24pm Advance Directive Response Recorded Date/ Time Advance Directives No February 1:24pm Living Will No March 08, 2023 1:24pm Power of Network Support Administrator No February 1:24pm Advance Directive Response Recorded Date/ Time Advance Directives No February 1:24pm Living Will No August 01 5:45pm Power of Network Support Administrator No August 01, 2023 5:45pm Advance Directive Response Recorded Date/ Time Advance Directives No February 2:24pm Living Will No August 01 6:45pm Power of Network Support Administrator No August 01, 2023 6:45pm Advance Directive Response Recorded Date/ Time Living Will No April 27 11:50am Do you have a [facility] Power of Network Support Administrator? No April 27, 2016 11:50am Advance Directives No February 2:24pm Chief Complaint and Reason for Visit Chief Complaint ONC/HEM 6MO LABS PHLEBO? Hereditary hemochromatosis Reason for Visit Hemochromatosis Hemochromatosis Chief Complaint SORE THROAT 6MO LABS PHLEBO ONC/HEM FATIGUE S/P [facility] 01/18/23 AFLUTTER AFIB Amb Documentation Reason for Visit Acute otitis externa of left ear Acute pharyngitis, unspecified Hemochromatosis Hemochromatosis Fatigue Essential (primary) hypertension Hyperlipidemia Paroxysmal atrial flutter Chief Complaint 6MO LABS PHLEBO ONC/HEM FATIGUE S/P [facility] 01/18/23 AFLUTTER AFIB Amb Documentation A FLUTTER A FLUTTER Reason for Visit Hemochromatosis Hemochromatosis Fatigue Essential (primary) hypertension Hyperlipidemia Paroxysmal atrial flutter Chief Complaint 6MO LABS PHLEBO ONC/HEM FATIGUE S/P [facility] 01/18/23 AFLUTTER AFIB Amb Documentation A FLUTTER [...] Wants moved up, see clinical note Zen NEW RECURRING INR Reason for Visit Hemochromatosis Hemochromatosis Essential (primary) hypertension 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 Paroxysmal atrial flutter Chief Complaint chest other Wants moved up, see clinical note Zen NEW RECURRING INR NEW RECURRING INR Reason for Visit Essential (primary) hypertension Hyperlipidemia senior care (current) use of anticoagulants Paroxysmal atrial flutter [...] section and content) DATE CREATED AUTHOR 09/15/2018 [facility] DATE CREATED AUTHOR AUTHOR'S ORGANIZ ATION 09/18/2021 [facility] DATE CREATED AUTHOR AUTHOR'S ORGANIZ ATION 01/13/2022 [facility] DATE CREATED AUTHOR AUTHOR'S ORGANIZ ATION 03/24/2024 [facility] DATE CREATED AUTHOR AUTHOR'S ORGANIZ ATION 05/04/2025 [facility] <item><item> Privacy Markings (unrecogniz ed section [...] Member Role Status Dates Dr. Ada Alexander , DO Family Provider Active Dr. Ada Alexander [...] DO Primary Care Provider Active Brandan Ma QUALITY ASSURANCE PRACTICE MANAGER, QUALITY ASSURANCE PRACTICE MANAGER-C Attending Provider Active Team Status: Active Member Role Status Dates Dr. Ada Alexander DO Primary Care Prov ider, Family Provider, Referring Provider Active Gabriela Crews QUALITY ASSURANCE PRACTICE MANAGER, QUALITY ASSURANCE PRACTICE MANAGER-C Attending Provider Active Team Status: Inactive Member [...] 2024 End: November 27, 2024 Gabriela Crews NP, QUALITY ASSURANCE PRACTICE MANAGER-C Attending Provider Active Start: November 27, 2024 End: November 27, 2024 Team Status: Active Member Role Status Dates Dr. Ada Alexander DO Primary Care Provider Active Start: November 27, 2024 Dr. Ada Alexander DO Family Provider Active St art: November 27, 2024 Dr. Ada Alexander DO Referring Provider Active Start: November 27, 2024 Gabriela Crews QUALITY ASSURANCE PRACTICE MANAGER, QUALITY ASSURANCE PRACTICE MANAGER-C Attending Provider Active Start: November 27, 2024 [...] BE BASED ON THE PRIMARY CLINICAL RECORDS. [facility], [facility]. provides no warranty or guarantee of the accuracy or completeness of information in this document.
== END | disposition home or self-care (01) ==
PROVIDERS: Nurse Practitioner Family; PCP Family Medicine; Visit Provider Family Medicine
DX: I10 Essential (primary) hypertension (principal); E11.59 Type 2 diabetes mellitus with other circulatory complications; E83.110 Hereditary hemochromatosis; Z12.5 Encounter for screening for malignant neoplasm of prostate
CPT/HCPCS: 36415; 80053; 82728; 84153; 85025; G0103

== ENCOUNTER → 2025-05-30 | Outpatient (CLI) | payer MEDICARE, OTHER, SELFPAY ==
--- NOTE | 2025-05-30 07:45 | US_ITS ---
PROCEDURE: ABDOMEN LIMITED 05/30/2025 REASON FOR EXAM: SCREENING FOR HCC; HEMACHROMATOSIS TECHNIQUE: Procedure Code: USABDL Modality: US Procedure: ABDOMEN LIMITED COMPARISON: June 06, 2024. FINDINGS: Liver: Diffusely echogenic suggesting fatty infiltration. Gallbladder: 5 mm x 7 mm x 6 mm solitary gallstone. Common bile duct: Normal measuring 4 mm. . Pancreas: Normal Other: Visualized portions of the right kidney are unremarkable except for a 3.6 cm 3.5 cm 3.3 cm right renal cyst.. No right upper quadrant ascites. US/Abdomen Limited IMPRESSION: Stable examination. Reading Location: [place] [address]
--- OUTSIDE RECORDS SUMMARY | 2025-05-30 08:02 | XMS RPT_ITS | CCD ---
Author Organization [facility] Care Team Providers Care Almond Blancher Operator Name Role Phone Misa TANG, Latoya Woo Unavailable Yamini Lim Unavailable Unavailable Alonzo Dupree Admitting Unavailable Alonzo Dupree Attending Unavailable Arnold Escobedo Primary Care Unavailable Yamini Lim Unavailable Unavailable Ada Alexander Unavailable Vani Cordon Unavailable Unavailable Dr. Ada Alexander Primary Care Provider [phone] Dr. Ada Alexander Referring Provider Mars HOOD, VP PATIENT-Javi Ochoa Attending Provider Dr. Ada Alexander Primary Care Provider Dr. Ada Alexander Referring Provider CONNER Law Attending Provider Dr. Roque Kang Attending Provider CONNER Grover Attending Provider Dr. Faustino Chin Attending Provider Anil HOOD, DEVAUGHN Warren Attending Provider Dr. Ada Alexander Primary Care Provider [phone] Ada Alexander Referring Provider [phone] Faustino Chin Other Provider Dr. Ada Alexander Primary Care Provider [phone] Dr. Ada Alexander Referring Provider CONNER Grover Attending Provider Dr. Roque Kang Attending Provider Dr. Ada Alexander Primary Care Provider Dr. Ada Alexander Referring Provider Dr. Ada Alexander Primary Care Provider [phone] Dr. Ada Alexander Referring Provider Dr. Roque Kang Attending Provider OCNNER Grover Attending Provider Dr. Ada Alexander Primary [...] Dr. Ada Alexander DO Referring Provider [phone] Mars VP PATIENT-C, Gabriela Attending Provider Ada Alexander Attending Unavailable Francois, Ada Primary Care Unavailable Francois, Ada Attending Unavailable Francois, Ada Primary Care Unavailable Francois, Ada Referring Unavailable Francois, Ada Primary Care Unavailable Elsy, Faustino Consulting Unavailable Ermelinda PRIETO, Latoya Huitron Attending Unavail able Latoya Grover Referring Unavail able FrancoisAda miramontes Attending Unavailable Francois, Ada Primary Care Unavailable Francois, Ada Referring Unavailable Francois, Ada Primary Care Unavailable Mars VP PATIENT, Gabriela Referring Unavailable Mars VP PATIENT, Gabriela Attending Unavailable Francois, Ada Primary Care Unavailable Francois, Ada Referring Unavailable Mars VP PATIENT, Gabriela Attending Unavailable Francois, Ada Primary Care Unavailable Francois, Ada Referring Unavailable Mars VP PATIENT, Gabriela Attending Unavailable Francois, Ada Primary Care [...] Attending Unavailable Francois, Ada Referring Unavailable Mars VP PATIENT, Gabriela Attending Unavailable Francois, Ada Primary Care Unavailable Francois, Ada Primary Care Unavailable Latoya Grover Attending Unavail able Elsy, Faustino Consulting Unavailable Latoya Grover Referring Unavail able Allergies Allergy Classification Reported Allergen(s) Allergy Type Date of Onset Reaction(s) Facility Penicillins (antibiotic) (1 source) Penicillin Drug Allergy Hives/Urticaria [facility] (3 sources) ezetimibe drug allergy 6 myalgia [facility] Work Phone: (3 sources) fish, unspecified; Translations: [STATIN MEDICATIONS] food allergy 6 Elevated LFT's [facility] Work Phone: (4 sources) penicillin drug allergy Hives/Urticaria [facility] Work Phone: (12 sources) Penicillins; Translations: [penicillins] Propensity to adverse reactions to drug (disorder) 2 [facility] Repository (10 sources) ezetimibe Drug Allergy 2 Pain in joints [facility] (10 sources) nabumetone Drug Allergy 2 Unknown [facility] (11 sources) Tlpufcs-Tig-Qjb Reductase Inhibitor; Translations: [Bpdgzeh-Tor-Hb a Reductase Inhibitor] Propensity to adverse reactions 2 Unknown [facility] (1 source) ALLERGIES NOT ON FILE; Translations: [ALLERGIES NOT ON FILE] Propensity to adverse reactions (disorder) [facility] 2 Repository (1 source) ezetimibe Drug Allergy 5 [facility] Repository (1 source) nabumetone Drug Allergy 5 [facility] Repository Medications Current Medications Medication Drug Class(es) Dates Sig (Normalized) Sig (Original) apixaban 5 mg oral tablet (20 sources) Factor Xa Inhibitor Start: 06-22-2024 take 1 tablet by mouth twice daily Apixaban 5 mg tablet Active 5 mg PO TWICE A DAY 180 June 22, 2024 1:00am Sending to [facility] Start: 01-18-2023 End: 09-01-2023 take 1 tablet [...] Start: 04-30-2020 take 1 capsule by mo [facility] once daily Cholecalciferol (Vitamin D3) (Vitamin D3) 5,000 UNIT capsule Active 1 CAP PO DAILY April 30, 2020 12:00am Start: 04-30-2020 take 1 capsule by mo [facility] once daily Cholecalciferol (Vitamin D3) (Vitamin [...] 29, 2020 4:10pm [facility] losartan 25 mg oral [...] 2018 9:34am take 1 capsule by mo [facility] once daily meloxicam 5 mg oral capsule ; 1 cap(s) orally once a day Quantity: 0 Refills: 0 Ordered: 21-Jun-2019 Keely Abbott Generic Substitution Allowed End: 10-28-2015 take 1 tablet by mouth once daily MELOXICAM 15 MG TABS One tablet by mouth daily MELOXICAM [id number] Eddie Villalta metoprolol tartrate 50 mg oral [...] by mouth twice daily- STOP METOPROLOL TARTRATE [id number] Latoya [facility] PA-C Dwxdsbqn-Twd-Dy-Lycopen-Lute in (9 sources) Start: 05-22-2014 Qfkpgrwn-Eyo-Pw-Lycopen-Lute in Active 1 EACH PO DAILY May 22, 2014 12:00am Start: 05-22-2014 Yozzmgqh-Rax-R s-Uguvlyw-Eirebt Active 1 EACH PO DAILY May 22, 2014 1:00am Qhvjzeei-Hoc-Bq-Lycopen-Lute in 1 EACH tablet (1 source) Start: 05-22-2014 Xohmnufi-Kqg-Tf-Lycopen-Lute in 1 EACH tablet Active 1 NMA [...] One tablet by mouth daily SERTRALINE HCL [id number] Clau Smart LPN take 1 tablet by [...] mg) on the opposite days. SERTRALINE HCL [id number] Eddie Villalta take 1 tablet by wolf th once daily ZOLOFT 50 MG TABS One tablet by mouth daily. SERTRALINE HCL [id number] Lalito Carty DO Completed/Discontinued Medications Medication Drug [...] TBEC One tablet by mouth daily ASPIRIN [id number] Latoya [facility] PA-C azithromycin 250 mg oral [...] TABS One tablet by mouth daily EZETIMIBE [id number] Clau Smart LPN hydroCHLOROthiazide 12.5 mg / [...] TABS One-half tablet by mouth daily VALSARTAN-HYDROCHLOROTHIAZIDE [id number] [facility] Machelle DO take 0.5 tablet by m outh once daily, then take 160-25 tablets by mouth DIOVAN HCT 160-25 MG TABS One-half table t by mouth daily VALSARTAN-HYDROCHLOROTHIAZIDE 06496138147 [facility] Machelle DO take 1 tablet by wolf th once daily DIOVAN HCT 160-25 MG TABS One tablet by mouth daily VALSARTAN-HYDROCHLOROTHIAZIDE 15225663225 Clau Smart LPN hydrocortisone 10 mg/ml / neomycin 3.5 mg/ml / polymyxin b 28944 unt/ml otic suspension (9 sources) Aminoglycoside Antibacterial, Polymyxin-class Antibacterial, Corticosteroid Start: 10-28-2022 End: 11-07-2022 Ojufkgiu-Wnsrffxxu-Vj 3.5-10,000-1 mg/mL-unit/mL-% drops,suspension Discontinued 4 NMA OTIC THREE TIMES A DAY 04 05October 28, 2022 12:00am November 06, 2022 12:00am November 07, 2022 12:04am to affected ear(s) Start: 10-28-2022 End: 11-07-2022 [place]-Hwtczcjqd-Xk Discon tinued 4 DRP OTIC THREE TIMES A DAY 10 October 28, 2022 12:00am November 07, 2022 12:04am to affected ear(s) ibuprofen 200 mg oral tablet (6 sources) Nonsteroidal Anti-inflammatory Drug End: 07-17-2014 take 2 tablets by mouth three times daily as needed ADVIL 200 MG TABS Two tablets by mouth three times daily as needed IBUPROFEN [id number] Clau Berry LPN 3 ml insulin glargine 100 unt/ml pen injector (1 source) Insulin Analog Start: 03-20-2024 End: 11-27-2024 Insulin Glargine (Basaglar Kwikpen U-100 Insulin) 100 unit/mL (3 mL) insulin pen Discontinued U SC March 20, 2024 12:00am November 27, 2024 2:22pm MULTIPLE VITAMIN (2 sources) take 1 tablet by mouth once daily MULTIVITAMINS TABS One tablet by mouth daily MULTIPLE VITAMIN [id number] Clau Berry PUENTE MULTIPLE VITAMIN (1 source) take 1 tablet by mouth once daily MULTIVITAMINS TABS One tablet by mouth daily MULTIPLE VITAMIN [id number] Clau Berry LPN oxyCODONE hydrochloride 5 mg [...] TABS One tablet by mouth daily RIVAROXABAN [id number] Faustino Chin MD rosuvastatin 10 mg oral [...] Will discontinue once patient received eliquis from [facility] Please contact the information source for [...] sources) Long-term current use of anticoagulant; 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, [address] Albumin/Globulin [Mass ratio] 1.2 {ratio} Normal 0.9-2.4 [facility] Comment on above: Performed By: #### L 503.6550, L500.4050, L100.0100 #### [facility] [address] [place], [address] ALK PHOS 101 U/L Normal 40-129 [facility] Comment on above: Performed By: #### L 503.6550, L500.4050, L100.0100 #### [facility] [address] [place], [address] ALT [Catalytic activity/Vol] 32 U/L Normal <=46 [facility] Comment on above: Performed By: #### L 503.6550, L500.4050, L100.0100 #### [facility] [address] [place], [address] AST [Catalytic activity/Vol] 32 U/L Normal <=37 [facility] Comment on above: Performed By: #### L 503.6550, L500.4050, L100.0100 #### [facility] [address] [place], [address] Bilirubin [Mass/Vol] 0.91 mg/dL Normal 0.00-1.30 [facility] Comment on above: Performed By: #### L 503.6550, L500.4050, L100.0100 #### [facility] [address] [place], [address] BUN/CRE 19.7 RATIO Normal 10-20 [facility] Comment on above: Performed By: #### L 503.6550, L500.4050, L100.0100 #### [facility] [address] [place], [address] Calcium [Mass/Vol] 10.2 mg/dL Normal 7.6-11.0 [facility] Comment on above: Performed By: #### L 503.6550, L500.4050, L100.0100 #### [facility] [address] [place], [address] Chloride [Moles/Vol] 99 mmol/L Normal 98-108 [facility] Comment on above: Performed By: #### L 503.6550, L500.4050, L100.0100 #### [facility] [address] [place], [address] CO2 [Moles/Vol] 25.9 mmol/L Normal 21.0-32.0 [facility] Comment on above: Performed By: #### L 503.6550, L500.4050, L100.0100 #### [facility] [address] [place], [address] Creatinine [Mass/Vol] 0.82 mg/dL Normal 0.70-1.20 [facility] Comment on above: Performed By: #### L 503.6550, L500.4050, L100.0100 #### [facility] [address] [place], [address] GAP 11 Normal 5-15 [facility] Comment on above: Performed By: #### L 503.6550, L500.4050, L100.0100 #### [facility] [address] [place], [address] GFR/1.73 sq M.predicted among non-blacks MDRD (S/P/Bld) [Vol rate/Area] 93 mL/min/{1.73_m2} Normal >60 [facility] Comment on above: Result Comment: mL/m in/1.73m2 CKD-EPI Creatinine Equation (2020) Performed By: #### L 503.6550, L500.4050, L100.0100 #### [facility] [address] [place], [address] Globulin (S) [Mass/Vol] 3.4 g/dL Normal 2.2-4.2 [facility] Comment on above: Performed By: #### L 503.6550, L500.4050, L100.0100 #### [facility] [address] [place], [address] Glucose [Mass/Vol] 133 mg/dL High 70-99 [facility] Comment on above: Performed By: #### L 503.6550, L500.4050, L100.0100 #### [facility] [address] [place], [address] Potassium [Moles/Vol] 4.3 mmol/L Normal 3.3-5.1 [facility] Comment on above: Performed By: #### L 503.6550, L500.4050, L100.0100 #### [facility] [address] [place], [address] Sodium [Moles/Vol] 136 mmol/L Normal 133-145 [facility] Comment on above: Performed By: #### L 503.6550, L500.4050, L100.0100 #### [facility] [address] [place], [address] T PROT 7.7 g/dL Normal 5.9-8.4 [facility] Comment on above: Performed By: #### L 503.6550, L500.4050, L100.0100 #### [facility] [address] [place], [address] Urea nitrogen [Mass/Vol] 16 mg/dL Normal 4-19 [facility] Comment on above: Performed By: #### L 503.6550, L500.4050, L100.0100 #### [facility] [address] [place], [address] Hemoglobin A1con 05-02-2025 HbA1c (Bld) [Mass fraction] 5.9 % High <=5.6 [facility] Comment on above: Result Comment: Norm al < 5.7 % Prediabetic 5.7 - 6.4 % Diabetic >or= 6.5 % Please note range changes. Performed By: #### L 503.6550, L500.4050, L100.0100 #### [facility] [address] [place], [address] Lipid Profileon 05-02-2025 CHOL:HDL 5.10 Normal [facility] Comment on above: Performed By: #### L 503.6550, L500.4050, L100.0100 #### [facility] [address] [place], [address] Cholesterol [Mass/Vol] 174 mg/dL Normal <=200 [facility] Comment on above: Result Comment: Chol esterol level, Desirable <200 mg/dL Borderline high cholesterol 200-239 mg/dL High cholesterol >=240 mg/dL Recommendations of the NCEP Adult Treatment Panel for the following risk-cutoff thresholds for the [place] population. Performed By: #### L 503.6550, L500.4050, L100.0100 #### [facility] [address] [place], [address] Cholesterol in HDL [Mass/Vol] 34 mg/dL Low [facility] Comment on above: Result Comment: Alla onal Cholesterol Education Program (NCEP) guidelines: <40 mg/dL: Low HDL-cholesterol (major risk factor for CHD) >= 60 mg/dL: High HDL-cholesterol (negative risk factor for CHD) HDL-cholesterol is affected by a number of factors, e.g. smoking, exercise, hormones, sex and age. Performed By: #### L 503.6550, L500.4050, L100.0100 #### [facility] [address] [place], [address] Cholesterol in LDL [Mass/Vol] 105 mg/dL Normal [facility] Comment on above: Result Comment: Bord owckrj=391-698 mg/dL Higher Liia=101 mg/dL or greater Wilson Equation 2020 for LDL-C Performed By: #### L 503.6550, L500.4050, L100.0100 #### [facility] [address] [place], [address] Cholesterol in VLDL [Mass/Vol] 40 mg/dL Normal 5-40 [facility] Comment on above: Performed By: #### L 503.6550, L500.4050, L100.0100 #### [facility] [address] [place], [address] Triglyceride [Mass/Vol] 201 mg/dL High [facility] Comment on above: Result Comment: The drugs N-Acetylcysteine and Metamizole may falsely depress this assay. Normal range: <150 mg/dL Borderline High: 150-199 mg/dL High: 200-499 mg/dL Very High: >500 mg/dL Performed By: #### L 503.6550, L500.4050, L100.0100 #### [facility] [address] [place], [address] Microalb:Creat Ratio,Random URon 05-02-2025 Creatinine [Mass/Vol] 89.20 mg/dL Normal 39.00- 259.0 0 [facility] Comment on above: Performed By: #### L 503.6550, L500.4050, L100.0100 #### [facility] [address] [place], [address] MALB:CREAT 28.3 mg/g CRE Normal <30 mg/g CRE [facility] Comment on above: Performed By: #### L 503.6550, L500.4050, L100.0100 #### [facility] [address] [place], [address] MICROALBUMIN,UR 25.2 mg/L Normal <20 mg/L [facility] Comment on above: Performed By: #### L 503.6550, L500.4050, L100.0100 #### [facility] [address] [place], [address] Emergency Department Summary on 04-22-2025 Emergency Department Summary [facility] Medical Records Department [address] [place] [address] Emergency Department Summary 04/22/25 MR#: [id number] Acct: [id number] Name: EDWIGE MAHMOOD Rep #: [id number] : 1950 74 From: Grover Lemons MD [...] for diverticulitis; denies having a colostomy bag. [facility] Medical History Acute otitis externa [...] Medications ???Medication ???Instructions ???Recorded ???Last Taken ???Type tumvvsht-icd-wdbcl acid 0.4 1 ea PO DAILY SUPPLEMENT [...] Intermediate Pain in Verified 04/22/25 09:58 joints Tuuxiqv-OAI-FtY Reductase AdvReac Unknown Verified 04/22/25 09:58 Inhibitor (Phtnjeo-Uhf-Uye Reductase Inhibitor) Family History Mother COPD (chronic [...] Physical Exam (more content not included)... Normal [facility] Emergency Department Summary on 04-20-2025 Emergency Department Summary [facility] Medical Records Department [address] [place] [address] Emergency Department Summary 04/20/25 MR#: [id number] Acct: [id number] Name: EDWIGE MAHMOOD [place] Rep #: [id number] : 1950 74 From: Marine Gold MD [...] required a Alvarez catheter in the past. [facility] Medical History Acute otitis externa [...] Medications ???Medication ???Instructions ???Recorded ???Last Taken ???Type mibhmyqp-juq-fmbju acid 0.4 1 ea PO DAILY SUPPLEMENT [...] Intermediate Pain in Verified 04/20/25 19:23 joints Ermujry-YVK-LyZ Reductase AdvReac Unknown Verified 04/20/25 19:23 Inhibitor (Dxvnnhm-Yey-Ekv Reductase Inhibitor) Family History Mother COPD (chronic [...] H 128/7 (more content not included)... Normal [facility] Urinalysis, Completeon 04-20 EPI,SQUAMOUS 0-5 SEEN Normal 0-5 [facility] Comment on above: Order Comment: BRANDON TER SPECIMEN Performed By: #### L 400.0001 #### [facility] [address] [place], [address] RBC 0-5 SEEN Normal 0-5 [facility] Comment on above: Order Comment: BRANDON TER SPECIMEN Performed By: #### L 400.0001 #### [facility] [address] [place], [address] WBC 0-5 SEEN Normal 0-5 [facility] Comment on above: Order Comment: BRANDON TER SPECIMEN Performed By: #### L 400.0001 #### [facility] [address] [place], [address] BACTERIA 0 SEEN Normal None Seen [facility] Comment on above: Order Comment: BRANDON TER SPECIMEN Performed By: #### L 400.0001 #### [facility] [address] [place], [address] Mucus Ql (Urine sed) 0 SEEN Normal [facility] Comment on above: Order Comment: BRANDON TER SPECIMEN Performed By: #### L 400.0001 #### [facility] [address] [place], [address] Absolute lymphocyte countOrd ered By: Gabriela Crews on 11-27-2024 Lymphocytes Auto (Unsp spec) [#/Vol] 1.50 10*3/uL 0.83-4.51 [facility] Absolute neutrophil countOrd ered By: Gabriela Crews on 11-27-2024 Neutrophils (Bld) [#/Vol] 5.3 10*3/uL 2.0-7.7 [facility] Anion gap in Serum or Plasma Ordered By: Gabriela Crews on 11-27-2024 Anion gap [Moles/Vol] 12 mmol/L 5-15 [facility] Automated lymphocyte count a s percentage of total leukocytesOrdered By: Gabriela Crews on 11-27-2024 Lymphocytes/100 WBC Auto (Unsp spec) 19.9 % 19-41 [facility] BUN/creatinine ratioOrdered By: Gabriela Crews on 11-27-2024 Urea nitrogen/Creatinine [Mass ratio] 25.0 mg/mg High 10-20 [facility] Basophil percentageOrdered B y: Gabriela Crews on 11-27-2024 Basophils/100 WBC (Bld) 0.4 % 0-1 [facility] Bilirubin, totalOrdered By: Gabriela Crews on 11-27-2024 Bilirubin [Mass/Vol] 0.99 mg/dL 0.00-1.30 [facility] CBC W/Diff, Automatedon Absolute Lymph 1.50 X10 3/uL Normal 0.83-4.51 [facility] Comment on above: Performed By: #### L 503.6550, L500.4050, L100.0100 #### [facility] [address] [place], [address] Absolute Neut 5.3 X10 3/uL Normal 2.0-7.7 [facility] Comment on above: Performed By: #### L 503.6550, L500.4050, L100.0100 #### [facility] [address] [place], [address] Basophils/100 WBC (Bld) 0.4 % Normal 0-1 [facility] Comment on above: Performed By: #### L 503.6550, L500.4050, L100.0100 #### [facility] [address] [place], [address] Eosinophils/100 WBC (Bld) 1.9 % Normal 0-5 [facility] Comment on above: Performed By: #### L 503.6550, L500.4050, L100.0100 #### [facility] [address] [place], [address] Erythrocyte distribution width (RBC) [Ratio] 13.2 % Normal 11.6-14.6 [facility] Comment on above: Performed By: #### L 503.6550, L500.4050, L100.0100 #### [facility] [address] [place], [address] Hematocrit (Bld) [Volume fraction] 44.7 % Normal 40-54 [facility] Comment on above: Performed By: #### L 503.6550, L500.4050, L100.0100 #### [facility] [address] [place], [address] Hemoglobin (Bld) [Mass/Vol] 16.5 g/dL Normal 13.0-16.5 [facility] Comment on above: Performed By: #### L 503.6550, L500.4050, L100.0100 #### [facility] [address] [place], [address] IG% 0.300 Normal 0.0-0.9 [facility] Comment on above: Result Comment: IG% - Immature Granulocytes (promyelocytes, myelocytes and metamyelocytes) > 1% indicates that a LEFT SHIFT is Present. Performed By: #### L 503.6550, L500.4050, L100.0100 #### [facility] [address] [place], [address] Lymphocytes/100 WBC (Bld) 19.9 % Normal 19-41 [facility] Comment on above: Performed By: #### L 503.6550, L500.4050, L100.0100 #### [facility] [address] [place], [address] MCH (RBC) [Entitic mass] 34.2 pg High 27.0-32.0 [facility] Comment on above: Performed By: #### L 503.6550, L500.4050, L100.0100 #### [facility] [address] [place], [address] MCHC (RBC) [Mass/Vol] 36.9 g/dL High 32-36 [facility] Comment on above: Performed By: #### L 503.6550, L500.4050, L100.0100 #### [facility] [address] [place], [address] MCV (RBC) [Entitic vol] 92.5 fL Normal 80-94 [facility] Comment on above: Performed By: #### L 503.6550, L500.4050, L100.0100 #### [facility] [address] [place], [address] Monocytes/100 WBC (Bld) 7.7 % Normal 0-10 [facility] Comment on above: Performed By: #### L 503.6550, L500.4050, L100.0100 #### [facility] [address] [place], [address] Neutrophils/100 WBC (Bld) 69.8 % Normal 47-70 [facility] Comment on above: Performed By: #### L 503.6550, L500.4050, L100.0100 #### [facility] [address] [place], [address] Nucleated RBC (Bld) [#/Vol] 0 10*3/uL Normal 0-5 [facility] Comment on above: Performed By: #### L 503.6550, L500.4050, L100.0100 #### [facility] [address] [place], [address] Platelet mean volume (Bld) [Entitic vol] 10.6 fL Normal 6.2-12.0 [facility] Comment on above: Performed By: #### L 503.6550, L500.4050, L100.0100 #### [facility] [address] [place], [address] Platelets (Bld) [#/Vol] 196 10*3/uL Normal 150-450 [facility] Comment on above: Performed By: #### L 503.6550, L500.4050, L100.0100 #### [facility] [address] [place], [address] RBC (Bld) [#/Vol] 4.83 10*6/uL Normal 4.6-6.2 [facility] Comment on above: Performed By: #### L 503.6550, L500.4050, L100.0100 #### [facility] [address] [place], [address] RDW SD 44.9 fl High 35.1-43.9 [facility] Comment on above: Performed By: #### L 503.6550, L500.4050, L100.0100 #### [facility] [address] [place], [address] WBC (Bld) [#/Vol] 7.6 10*3/uL Normal 4.4-11.0 [facility] Comment on above: Performed By: #### L 503.6550, L500.4050, L100.0100 #### [facility] [address] [place], [address] Carbon dioxide, total [Moles /volume] in Central venous bloodOrdered By: Gabriela Mars on 11-27-2024 CO2 [Moles/Vol] 22.9 mmol/L 21.0-32.0 [facility] Chloride assayOrdered By: Peewee Crews on 11-27-2024 Chloride [Moles/Vol] 99 mmol/L 98-108 [facility] Comprehensive Metabolic Prof ilon 11-27-2024 Albumin [Mass/Vol] 4.4 g/dL Normal 3.4-4.8 [facility] Comment on above: Performed By: #### L 503.6550, L500.4050, L100.0100 #### [facility] [address] [place], [address] Albumin/Globulin [Mass ratio] 1.3 {ratio} Normal 0.9-2.4 [facility] Comment on above: Performed By: #### L 503.6550, L500.4050, L100.0100 #### [facility] [address] [place], [address] ALK PHOS 100 U/L Normal 40-129 [facility] Comment on above: Performed By: #### L 503.6550, L500.4050, L100.0100 #### [facility] [address] [place], [address] ALT [Catalytic activity/Vol] 38 U/L Normal <=46 [facility] Comment on above: Performed By: #### L 503.6550, L500.4050, L100.0100 #### [facility] [address] [place], [address] AST [Catalytic activity/Vol] 38 U/L Normal <=37 [facility] Comment on above: Performed By: #### L 503.6550, L500.4050, L100.0100 #### [facility] [address] [place], [address] Bilirubin [Mass/Vol] 0.99 mg/dL Normal 0.00-1.30 [facility] Comment on above: Performed By: #### L 503.6550, L500.4050, L100.0100 #### [facility] [address] [place], [address] BUN/CRE 25.0 RATIO High 10-20 [facility] Comment on above: Performed By: #### L 503.6550, L500.4050, L100.0100 #### [facility] [address] [place], [address] Calcium [Mass/Vol] 9.9 mg/dL Normal 7.6-11.0 [facility] Comment on above: Performed By: #### L 503.6550, L500.4050, L100.0100 #### [facility] [address] [place], [address] Chloride [Moles/Vol] 99 mmol/L Normal 98-108 [facility] Comment on above: Performed By: #### L 503.6550, L500.4050, L100.0100 #### [facility] [address] [place], [address] CO2 [Moles/Vol] 22.9 mmol/L Normal 21.0-32.0 [facility] Comment on above: Performed By: #### L 503.6550, L500.4050, L100.0100 #### [facility] [address] [place], [address] Creatinine [Mass/Vol] 0.94 mg/dL Normal 0.70-1.20 [facility] Comment on above: Performed By: #### L 503.6550, L500.4050, L100.0100 #### [facility] [address] [place], [address] ECRCL 104.28 ml/min Normal 50-250 [facility] Comment on above: Performed By: #### L 503.6550, L500.4050, L100.0100 #### [facility] [address] [place], [address] GAP 12 Normal 5-15 [facility] Comment on above: Performed By: #### L 503.6550, L500.4050, L100.0100 #### [facility] [address] [place], [address] GFR/1.73 sq M.predicted among non-blacks MDRD (S/P/Bld) [Vol rate/Area] 86 mL/min/{1.73_m2} Normal >60 [facility] Comment on above: Result Comment: mL/m in/1.73m2 CKD-EPI Creatinine Equation (2020) Performed By: #### L 503.6550, L500.4050, L100.0100 #### [facility] [address] [place], [address] Globulin (S) [Mass/Vol] 3.3 g/dL Normal 2.2-4.2 [facility] Comment on above: Performed By: #### L 503.6550, L500.4050, L100.0100 #### [facility] [address] [place], [address] Glucose [Mass/Vol] 125 mg/dL High 70-99 [facility] Comment on above: Performed By: #### L 503.6550, L500.4050, L100.0100 #### [facility] [address] [place], [address] Potassium [Moles/Vol] 4.0 mmol/L Normal 3.3-5.1 [facility] Comment on above: Performed By: #### L 503.6550, L500.4050, L100.0100 #### [facility] [address] [place], [address] Sodium [Moles/Vol] 134 mmol/L Normal 133-145 [facility] Comment on above: Performed By: #### L 503.6550, L500.4050, L100.0100 #### [facility] [address] [place], [address] T PROT 7.7 g/dL Normal 5.9-8.4 [facility] Comment on above: Performed By: #### L 503.6550, L500.4050, L100.0100 #### [facility] [address] [place], [place], [id number] Urea nitrogen [Mass/Vol] 24 mg/dL High 4-19 [facility] Comment on above: Performed By: #### L 503.6550, L500.4050, L100.0100 #### [facility] [address] [place], [place], [id number] (766) Eosinophil percentageOrdered By: Gabriela Crews on 11-27-2024 Eosinophils/100 WBC (Bld) 1.9 % 0-5 [facility] Erythrocyte distribution wid th ratioOrdered By: Gabriela Crews on 11-27-2024 Erythrocyte distribution width (RBC) [Ratio] 13.2 % 11.6-14.6 [facility] Erythrocyte distribution wid th standard deviationOrdered By: Gabriela Crews on 11-27-2024 Erythrocyte distribution width (RBC) [Ratio] 44.9 fl High 35.1-43.9 [facility] Ferritinon 11-27-2024 Ferritin [Mass/Vol] 153 ng/mL Normal 37-417 [facility] Comment on above: Performed By: #### L 503.6550, L500.4050, L100.0100 #### [facility] [address] [place], [place], [address] Glomerular filtration rate ( GFR) estimation/1.73 sq m using serum, plasma, or whole bOrdered By: Gabriela Crews on 11-27-2024 GFR/1.73 sq M.predicted among non-blacks MDRD (S/P/Bld) [Vol rate/Area] 86 mL/min/{1.73_m2} >60 [facility] Comment on above: mL/min/1.73m2 CKD-EP I Creatinine Equation (2020) Hematocrit Auto (Bld) [Volum e fraction]Ordered By: Gabriela Crews on 11-27-2024 Hematocrit (Bld) [Volume fraction] 44.7 % 40-54 [facility] Hemoglobin measurementOrdere d By: Gabriela Crews on 11-27-2024 Hemoglobin (Bld) [Mass/Vol] 16.5 g/dL 13.0-16.5 [facility] Immature granulocytes/100 WB C Auto (Bld)Ordered By: Gabriela Crews on 11-27-2024 Immature granulocytes/100 WBC (Bld) 0.300 % 0.0-0.9 [facility] Comment on above: IG% - Immature Granu locytes (promyelocytes, myelocytes and metamyelocytes) > 1% indicates that a LEFT SHIFT is Present. Laboratory - Chemistry and C hemistry - challengeOrdered By: Gabriela Crews on 11-27-2024 AST [Catalytic activity/Vol] 38 U/L <38 [facility] MCV (mean corpuscular volume ) determinationOrdered By: Gabriela Crews on 11-27-2024 MCV (RBC) [Entitic vol] 92.5 fL 80-94 [facility] Mean corpuscular hemoglobin (MCH) determinationOrdered By: Gabriela Crews on 11-27-2024 MCH (RBC) [Entitic mass] 34.2 pg High 27.0-32.0 [facility] Mean corpuscular hemoglobin concentration (MCHC) determinationOrdered By: Gabriela Crews on 11-27-2024 MCHC (RBC) [Mass/Vol] 36.9 g/dL High 32-36 [facility] Mean platelet volume determi nationOrdered By: Gabriela Crews on 11-27-2024 Platelet mean volume (Bld) [Entitic vol] 10.6 fL 6.2-12.0 [facility] Monocyte percentageOrdered B y: Gabriela Crews on 11-27-2024 Monocytes/100 WBC (Bld) 7.7 % 0-10 [facility] Neutrophil percentageOrdered By: Gabriela Crews on 11-27-2024 Neutrophils/100 WBC (Bld) 69.8 % 47-70 [facility] Nucleated red blood cell per centageOrdered By: Gabriela Crews on 11-27-2024 Nucleated RBC/100 WBC (Bld) [Ratio] 0 % 0-5 [facility] Oncology Visit Reporton 06-0 Oncology Visit Report [facility] [address] [place] [address] OFFICE VISIT Date of Service: 11/27/24 1417 MR#: [id number] Acct: [id number] Name: EDWIGE MAHMOOD Rep #: [id number] : 1950 From: Gabriela Crews NP VP PATIENT -C Age/Sex: 74/M [place] [facility] [place] Status: Signed HPI Subjective Date of Service [...] bowel habits, and swelling/pain of his extremities. [facility] Medical History Acute otitis externa of [...] (Intermediate, Verified 11/27/24 14:22) Pain in joints Vbxcxjv-CFZ-SmB Reductase Inhibitor (Gexkstg-Pkt-Lee Reductase Inhibitor) Adverse Reaction (Verified 11/27/24 14:22) Unknown Medications ???Medication ???Instructions ???Recorded ???Confirmed ???Type dcrdbrbu-oda-bmteq acid 0.4 1 ea PO DAILY SUPPLEMENT [...] Code O (more content not included)... Normal [facility] Platelet countOrdered By: Peewee Crews on 11-27-2024 Platelets (Bld) [#/Vol] 196 10*3/uL 150-450 [facility] Potassium measurement (mass/ volume)Ordered By: Gabriela Crews on 11-27-2024 Potassium (Unsp spec) [Mass/Vol] 4.0 mmol/L 3.3-5.1 [facility] RBC Auto (Bld) [#/Vol]Ordere d By: Gabriela Crews on 11-27-2024 RBC (Bld) [#/Vol] 4.83 10*6/uL 4.6-6.2 [facility] Serum creatinine measurement (mass/volume)Ordered By: Gabriela Crews on 11-27-2024 Creatinine [Mass/Vol] 0.94 mg/dL 0.70-1.20 [facility] Serum globulin measurementOr dered By: Gabriela Crews on 11-27-2024 Globulin (S) [Mass/Vol] 3.3 g/dL 2.2-4.2 [facility] Serum glucose measurement (m ass/volume)Ordered By: Gabriela Crews on 11-27-2024 Glucose [Mass/Vol] 125 mg/dL High 70-99 [facility] Serum or plasma alanine turcios otransferase (ALT) measurementOrdered By: Gabriela Crews on 11-27-2024 ALT [Catalytic activity/Vol] 38 U/L <47 [facility] Serum or plasma albumin liudmila urement (mass/volume)Ordered By: Gabriela Crews on 11-27-2024 Albumin [Mass/Vol] 4.4 g/dL 3.4-4.8 [facility] Serum or plasma albumin/glob ulin mass ratioOrdered By: Gabriela Crews on 11-27-2024 Albumin/Globulin [Mass ratio] 1.3 {ratio} 0.9-2.4 [facility] Serum or plasma alkaline christel sphatase measurementOrdered By: Gabriela Crews on 11-27-2024 ALP [Catalytic activity/Vol] 100 U/L 40-129 [facility] Serum or plasma calcium liudmila urement (mass/volume)Ordered By: Gabriela Crews on 11-27-2024 Calcium [Mass/Vol] 9.9 mg/dL 7.6-11.0 [facility] Serum or plasma ferritin ash surement (mass/volume)Ordered By: Gabriela Crews on 11-27-2024 Ferritin [Mass/Vol] 153 ng/mL 37-417 [facility] Serum or plasma urea nitroge n measurement (mass/volume)Ordered By: Gabriela Crews on 11-27-2024 Urea nitrogen [Mass/Vol] 24 mg/dL High 4-19 [facility] Sodium levelOrdered By: Gabriela Crews on 11-27-2024 Sodium [Moles/Vol] 134 mmol/L 133-145 [facility] Total proteinOrdered By: Ryan Crews on 11-27-2024 Protein [Mass/Vol] 7.7 g/dL 5.9-8.4 [facility] White blood cell (WBC) count Ordered By: Gabriela Crews on 11-27-2024 WBC (Bld) [#/Vol] 7.6 10*3/uL 4.4-11.0 [facility] Prothrombin Time w/INRon INR Coag (PPP) [Relative time] 2.2 {INR} Normal [facility] Comment on above: Performed By: #### L 503.6571, L500.4050, L100.0100 #### [facility] [address] [place], [place] [address], [address] PT Coag (PPP) [Time] 25.0 s High 11.7-14.9 [facility] Comment on above: Performed By: #### L 503.6550, L500.4050, L100.0100 #### [facility] [address] [place], [address] Prothrombin Time w/INRon INR Coag (PPP) [Relative time] 2.3 {INR} Normal [facility] Comment on above: Performed By: #### L 300.3900 #### [facility] [address] [place], [address] PT Coag (PPP) [Time] 25.5 s High 11.7-14.9 [facility] Comment on above: Performed By: #### L 300.3900 #### [facility] [address] [place], [address] Prothrombin Time w/INRon INR Coag (PPP) [Relative time] 2.1 {INR} Normal [facility] Comment on above: Performed By: #### L 300.3900 #### [facility] [address] [place], [address] PT Coag (PPP) [Time] 23.7 s High 11.7-14.9 [facility] Comment on above: Performed By: #### L 300.3900 #### [facility] [address] [place], [address] Urgent Care Visit Reporton 1 08-20-2023 Urgent Care Visit Report [facility] [address] , [address] [place], [place] [address] OFFICE VISIT Date of Service: 06/19/24 MR#: [id number] Acct: [id number] Name: EDWIGE MAHMOOD [place] Rep #: [id number] : 1950 Provider: CONNER Wilson Age/Sex: 73/M [...] (Intermediate, Verified 06/19/24 08:45) Pain in joints Jstilio-DIU-TcG Reductase Inhibitor (Hzpyhdu-Ksi-Qyg Reductase Inhibitor) Adverse Reaction (Verified 06/19/24 08:45) Unknown Medications ???Medication ???Instructions ???Recorded ???Confirmed ???Type hdhoijry-wbi-lyizf acid 0.4 1 ea PO DAILY SUPPLEMENT [...] coughing up phlegm and blowing green snot. [facility] Medical History Acute otitis externa of [...] Off vis,est,level (more content not included)... Normal [facility] Prothrombin Time w/INRon INR Coag (PPP) [Relative time] 4.1 {INR} Invalid Interpretation Code [facility] Comment on above: Result Comment: CRIT ICAL VALUE CALLED TO ROSEY TANG ([facility]) 06/14/24 [address] RESULTS READ BACK BY SAME. Performed By: #### L 503.6550, L500.4050, L100.0100 #### [facility] [address] [place], [address] PT Coag (PPP) [Time] 39.0 s High 11.7-14.9 [facility] Comment on above: Performed By: #### L 503.6550, L500.4050, L100.0100 #### [facility] [address] [place], [address] Abdomen Limitedon 06-06-2024 Abdomen Limited [facility] [address] [place] [address] Abdomen Limited MR#: [id number] Acct: [id number] Name: EDWIGE MAHMOOD Rep #: [id number] : 1950 M 73 From: Triston Flower MD PCP: Dr. Ada Alexander, DO Status: REG CLI Study: Abdomen Limited Date of Exam: 06/06/24 Exam# [id number] Ordering Dr: Gabriela Crews VP PATIENT VP PATIENT -C [id number] EXAM: US ABDOMEN LIMITED, RIGHT UPPER QUADRANT [...] CC: DEVAUGHN Crews; Dr. Ada Alexander DO Exhibition Designer: Signed Normal [facility] CBC W/Diff, Automatedon 12-0 Absolute Lymph 1.59 X10 3/uL Normal 0.83-4.51 [facility] Comment on above: Performed By: #### L 503.6550, L500.4050, L100.0100 #### [facility] [address] [place], [address] Absolute Neut 4.6 X10 3/uL Normal 2.0-7.7 [facility] Comment on above: Performed By: #### L 503.6550, L500.4050, L100.0100 #### [facility] [address] [place], [address] Basophils/100 WBC (Bld) 0.3 % Normal 0-1 [facility] Comment on above: Performed By: #### L 503.6550, L500.4050, L100.0100 #### [facility] [address] [place], [address] Eosinophils/100 WBC (Bld) 2.1 % Normal 0-5 [facility] Comment on above: Performed By: #### L 503.6550, L500.4050, L100.0100 #### [facility] [address] [place], [address] Erythrocyte distribution width (RBC) [Ratio] 13.1 % Normal 11.6-14.6 [facility] Comment on above: Performed By: #### L 503.6550, L500.4050, L100.0100 #### [facility] [address] [place], [address] Hematocrit (Bld) [Volume fraction] 43.7 % Normal 40-54 [facility] Comment on above: Performed By: #### L 503.6550, L500.4050, L100.0100 #### [facility] [address] [place], [address] Hemoglobin (Bld) [Mass/Vol] 15.8 g/dL Normal 13.0-16.5 [facility] Comment on above: Performed By: #### L 503.6550, L500.4050, L100.0100 #### [facility] [address] [place], [address] IG% 0.400 Normal 0.0-0.9 [facility] Comment on above: Result Comment: IG% - Immature Granulocytes (promyelocytes, myelocytes and metamyelocytes) > 1% indicates that a LEFT SHIFT is Present. Performed By: #### L 503.6550, L500.4050, L100.0100 #### [facility] [address] [place], [address] Lymphocytes/100 WBC (Bld) 22.8 % Normal 19-41 [facility] Comment on above: Performed By: #### L 503.6550, L500.4050, L100.0100 #### [facility] [address] [place], [address] MCH (RBC) [Entitic mass] 33.8 pg High 27.0-32.0 [facility] Comment on above: Performed By: #### L 503.6550, L500.4050, L100.0100 #### [facility] [address] [place], [address] MCHC (RBC) [Mass/Vol] 36.2 g/dL High 32-36 [facility] Comment on above: Performed By: #### L 503.6550, L500.4050, L100.0100 #### [facility] [address] [place], [address] MCV (RBC) [Entitic vol] 93.4 fL Normal 80-94 [facility] Comment on above: Performed By: #### L 503.6550, L500.4050, L100.0100 #### [facility] [address] [place], [address] Monocytes/100 WBC (Bld) 8.0 % Normal 0-10 [facility] Comment on above: Performed By: #### L 503.6550, L500.4050, L100.0100 #### [facility] [address] [place], [address] Neutrophils/100 WBC (Bld) 66.4 % Normal 47-70 [facility] Comment on above: Performed By: #### L 503.6550, L500.4050, L100.0100 #### [facility] [address] [place], [address] Nucleated RBC (Bld) [#/Vol] 0 10*3/uL Normal 0-5 [facility] Comment on above: Performed By: #### L 503.6550, L500.4050, L100.0100 #### [facility] [address] [place], [address] Platelet mean volume (Bld) [Entitic vol] 10.9 fL Normal 6.2-12.0 [facility] Comment on above: Performed By: #### L 503.6550, L500.4050, L100.0100 #### [facility] [address] [place], [address] Platelets (Bld) [#/Vol] 173 10*3/uL Normal 150-450 [facility] Comment on above: Performed By: #### L 503.6550, L500.4050, L100.0100 #### [facility] [address] [place], [address] RBC (Bld) [#/Vol] 4.68 10*6/uL Normal 4.6-6.2 [facility] Comment on above: Performed By: #### L 503.6550, L500.4050, L100.0100 #### [facility] [address] [place], [address] RDW SD 44.5 fl High 35.1-43.9 [facility] Comment on above: Performed By: #### L 503.6550, L500.4050, L100.0100 #### [facility] [address] [place], [address] WBC (Bld) [#/Vol] 7.0 10*3/uL Normal 4.4-11.0 [facility] Comment on above: Performed By: #### L 503.6550, L500.4050, L100.0100 #### [facility] [address] [place], [address] Comprehensive Metabolic Prof hermelindo 05-30-2024 Albumin [Mass/Vol] 3.7 g/dL Normal 3.2-5.0 [facility] Comment on above: Order Comment: 1 Performed By: #### L 503.6550, L500.4050, L100.0100 #### [facility] [address] [place], [address] Albumin/Globulin [Mass ratio] 0.9 {ratio} Normal 0.9-2.4 [facility] Comment on above: Order Comment: 1 Performed By: #### L 503.6550, L500.4050, L100.0100 #### [facility] [address] [place], [address] ALK P 115 U/L Normal 45-117 [facility] Comment on above: Order Comment: 1 Performed By: #### L 503.6550, L500.4050, L100.0100 #### [facility] [address] [place], [address] ALT [Catalytic activity/Vol] 73 U/L High 16-61 [facility] Comment on above: Order Comment: 1 Performed By: #### L 503.6550, L500.4050, L100.0100 #### [facility] [address] [place], [address] AST [Catalytic activity/Vol] 62 U/L High 15-37 [facility] Comment on above: Order Comment: 1 Result Comment: Slig ht Hemolysis, Result may be falsely increased. Performed By: #### L 503.6550, L500.4050, L100.0100 #### [facility] [address] [place], [address] Bilirubin [Mass/Vol] 0.70 mg/dL Normal 0.20-1.00 [facility] Comment on above: Order Comment: 1 Result Comment: For patients on eltrombopag therapy, use of Dimension Maria Stein TBIL is not recommended. Performed By: #### L 503.6550, L500.4050, L100.0100 #### [facility] [address] [place], [address] BUN/CRE 27.4 RATIO High 10-20 [facility] Comment on above: Order Comment: 1 Performed By: #### L 503.6550, L500.4050, L100.0100 #### [facility] [address] [place], [address] CA,Total 9.2 mg/dL Normal 8.5-10.1 [facility] Comment on above: Order Comment: 1 Performed By: #### L 503.6550, L500.4050, L100.0100 #### [facility] [address] [place], [address] Chloride [Moles/Vol] 105 mmol/L Normal 98-107 [facility] Comment on above: Order Comment: 1 Performed By: #### L 503.6550, L500.4050, L100.0100 #### [facility] [address] [place], [address] CO2 [Moles/Vol] 25.0 mmol/L Normal 21.0-32.0 [facility] Comment on above: Order Comment: 1 Performed By: #### L 503.6550, L500.4050, L100.0100 #### [facility] [address] [place], [address] Creatinine [Mass/Vol] 0.91 mg/dL Normal 0.70-1.30 [facility] Comment on above: Order Comment: 1 Result Comment: The validity of the calculated GFR GFRAA in patients over 70 years has not been determined. Clinical correlation is essential. Performed By: #### L 503.6550, L500.4050, L100.0100 #### [facility] [address] [place], [address] ECRCL 109.30 ml/min Normal [facility] Comment on above: Order Comment: 1 Performed By: #### L 503.6550, L500.4050, L100.0100 #### [facility] [address] [place], [address] EST GFR - AA 105 mL/min Normal >60 [facility] Comment on above: Order Comment: 1 Result Comment: Afri can [place] GFR Calc Performed By: #### L 503.6550, L500.4050, L100.0100 #### [facility] [address] [place], [address] GAP 6 Normal 5-15 [facility] Comment on above: Order Comment: 1 Performed By: #### L 503.6550, L500.4050, L100.0100 #### [facility] [address] [place], [address] GFR/1.73 sq M.predicted among non-blacks MDRD (S/P/Bld) [Vol rate/Area] 87 mL/min/{1.73_m2} Normal >60 [facility] Comment on above: Order Comment: 1 Result Comment: Non- GFR Calc Performed By: #### L 503.6550, L500.4050, L100.0100 #### [facility] [address] [place], [address] Globulin (S) [Mass/Vol] 4.0 g/dL Normal 2.2-4.2 [facility] Comment on above: Order Comment: 1 Performed By: #### L 503.6550, L500.4050, L100.0100 #### [facility] [address] [place], [address] Glucose [Mass/Vol] 162 mg/dL High 74-106 [facility] Comment on above: Order Comment: 1 Result Comment: Fast ing Glucose result greater than or equal to 126 mg/dL suggests DIABETES MELLITUS per A.D.A. criteria. Performed By: #### L 503.6550, L500.4050, L100.0100 #### [facility] [address] [place], [address] Potassium [Moles/Vol] 4.0 mmol/L Normal 3.5-5.1 [facility] Comment on above: Order Comment: 1 Result Comment: Slig ht Hemolysis, Result may be falsely increased. Performed By: #### L 503.6550, L500.4050, L100.0100 #### [facility] [address] [place], [address] Sodium [Moles/Vol] 137 mmol/L Normal 136-145 [facility] Comment on above: Order Comment: 1 Performed By: #### L 503.6550, L500.4050, L100.0100 #### [facility] [address] [place], [address] T PROT 7.7 g/dL Normal 6.4-8.2 [facility] Comment on above: Order Comment: 1 Performed By: #### L 503.6550, L500.4050, L100.0100 #### [facility] [address] [place], [address] Urea nitrogen [Mass/Vol] 25 mg/dL High 7-18 [facility] Comment on above: Order Comment: 1 Performed By: #### L 503.6550, L500.4050, L100.0100 #### [facility] [address] [place], [address] Ferritinon 05-30-2024 Ferritin [Mass/Vol] 156 ng/mL Normal 26-388 [facility] Comment on above: Order Comment: 1 Performed By: #### L 503.6550, L500.4050, L100.0100 #### [facility] [address] [place], [address] LDHon 05-30-2024 LDH 258 U/L High 87-241 [facility] Comment on above: Order Comment: 1 Result Comment: Slig ht Hemolysis, Result may be falsely increased. Performed By: #### L 503.6550, L500.4050, L100.0100 #### [facility] [address] [place], [address] Lactate dehydrogenase (LDH) measurementOrdered By: Roque Kang on 05-30-2024 LDH [Catalytic activity/Vol] 258 U/L High 87-241 [facility] Comment on above: Slight Hemolysis, Re sult may be falsely increased. Oncology Visit Reporton Oncology Visit Report [facility] [place] [facility] [address] [place] [address] OFFICE VISIT Date of Service: 05/30/24 1406 MR#: [id number] Acct: [id number] Name: EDWIGE MAHMOOD Coral Rep #: [id number] : 1950 From: Gabriela Crews NP VP PATIENT -C Age/Sex: 73/M Location[place] [facility] [place] Status: Signed HPI Subjective Date of [...] bowel habits, and swelling/pain of his extremities. [facility] Medical History Acute otitis externa of [...] (Intermediate, Verified 05/30/24 14:10) Pain in joints Rcemlrk-KGU-RwW Reductase Inhibitor (Aqzizgn-Utb-Pmt Reductase Inhibitor) Adverse Reaction (Verified 05/30/24 14:10) Unknown Medications ???Medication ???Instructions ???Recorded ???Confirmed ???Type ogbnvpur-gta-udtnb acid 0.4 1 ea PO DAILY SUPPLEMENT [...] no rash (more content not included)... Normal [facility] Prothrombin Time w/INRon INR Coag (PPP) [Relative time] 2.7 {INR} Normal [facility] Comment on above: Performed By: #### L 503.6550, L500.4050, L100.0100 #### [facility] [address] [place], [address] PT Coag (PPP) [Time] 28.8 s High 11.7-14.9 [facility] Comment on above: Performed By: #### L 503.6550, L500.4050, L100.0100 #### [facility] [address] [place], [address] Lipid Profileon 05-11-2024 Cholesterol [Mass/Vol] 226 mg/dL High 200 [facility] Comment on above: Result Comment: <200 mg/dL Desirable 200-240 mg/dL Borderline >240 mg/dL High Risk Performed By: #### L 501.9910, L300.3900, L500.4100 #### [facility] [address] [place], [address] Cholesterol in HDL [Mass/Vol] 35 mg/dL Low [facility] Comment on above: Result Comment: The drugs N-Acetylcysteine and Metamizole may falsely depress this assay. Reference Range HDL <40 mg/dL Low HDL Cholesterol HDL >or= 60 mg/dL High HDL Cholesterol Performed By: #### L 501.9910, L300.3900, L500.4100 #### [facility] [address] [place], [address] Cholesterol in LDL [Mass/Vol] 147 mg/dL High 0-130 [facility] Comment on above: Performed By: #### L 501.9910, L300.3900, L500.4100 #### [facility] [address] [place], [address] Cholesterol in VLDL [Mass/Vol] 44 mg/dL High 5-40 [facility] Comment on above: Performed By: #### L 501.9910, L300.3900, L500.4100 #### [facility] [address] [place], [address] Triglyceride [Mass/Vol] 220 mg/dL High [facility] Comment on above: Result Comment: The drugs N-Acetylcysteine and Metamizole may falsely depress this assay. Serum Triglycerides Reference Interval Normal <150 mg/dL Borderline high 150 - 199 mg/dL High 200 - 499 mg/dL Very High > or = 500 mg/dL Performed By: #### L 501.9910, L300.3900, L500.4100 #### [facility] [address] [place], [address] PSA,Total - Annual Screenon 05-11-2024 PSA,TOT SCREEN 2.56 ng/mL Normal 0.00-4.00 [facility] Comment on above: Result Comment: This test was performed using the TPSA assay method for the [employer] chemistry system. Values obtained with different assay methods cannot be used interchangably. When changing PSA assays in the course of monitoring a patient, additional sequential testing should be carried out to confirm baseline values. Performed By: #### L 501.9910, L300.3900, L500.4100 #### [facility] [address] [place], [address] Prothrombin Time w/INRon INR Coag (PPP) [Relative time] 2.6 {INR} Normal [facility] Comment on above: Performed By: #### L 501.9910, L300.3900, L500.4100 #### [facility] [address] [place], [address] PT Coag (PPP) [Time] 27.5 s High 11.7-14.9 [facility] Comment on above: Performed By: #### L 501.9910, L300.3900, L500.4100 #### [facility] [address] [place], [address] Microalb:Creat Ratio,Random URon 05-07-2024 Creatinine [Mass/Vol] 61.00 mg/dL Normal NO RAN GE EST. [facility] Comment on above: Performed By: #### L 502.0250 #### [facility] [address] [place], [address] MALB:CRE 40.0 mg/g CRE High <30 mg/g CRE [facility] Comment on above: Performed By: #### L 502.0250 #### [facility] [address] [place], [address] MICROALBUMIN,UR 24.4 mg/L Normal NO RANGE EST. [facility] Comment on above: Performed By: #### L 502.0250 #### [facility] [address] [place], [address] Laboratory - CoagulationOrde red By: Latoya Wadsworth on 10-20-2023 INR Coag (Bld) [Relative time] 1.5 {INR} [facility] PT Coag (PPP) [Time] 18.3 s 11.7-14.9 [facility] - CoagulationOrde red By: Latoya Wadsworth on 09-22-2023 INR Coag (Bld) [Relative time] 1.2 {INR} [facility] PT Coag (PPP) [Time] 14.8 s 11.7-14.9 [facility] Whole blood hemoglobin A1c/t otal hemoglobin ratio (mass fraction)Ordered By: Yoshi Sanderson on 07-11-2023 HbA1c (Bld) [Mass fraction] % 3.8-5.6 [facility] Comment on above: Normal < 5.7 % Predi abetic 5.7 - 6.4 % Diabetic >or= 6.5 % Please note range changes. Absolute lymphocyte countOrd ered By: Roque Kang on 06-01-2023 Lymphocytes Auto (Unsp spec) [#/Vol] 1.32 10*3/uL 0.83-4.51 [facility] Basophil percentageOrdered B y: Roque Kang on 06-01-2023 Basophils/100 WBC (Bld) 0.5 % 0-1 [facility] Bilirubin [Mass/Vol] 0.70 mg/dL 0.20-1.00 [facility] Comment on above: For patients on eltr ombopag therapy, use of Dimension Maria Stein TBIL is not recommended. Chloride [Moles/Vol] 103 mmol/L 98-107 [facility] Eosinophils/100 WBC (Bld) 1.6 % 0-5 [facility] Glucose [Mass/Vol] 225 mg/dL 74-106 [facility] Comment on above: Glucose result great er than or equal to 200 mg/dLsuggests DIABETES MELLITUS per A.D.A. criteria. LDH [Catalytic activity/Vol] 233 U/L 87-241 [facility] Neutrophils (Bld) [#/Vol] 4.4 10*3/uL 2.0-7.7 [facility] Neutrophils/100 WBC (Bld) 69.2 % 47-70 [facility] Potassium [Moles/Vol] 3.9 mmol/L 3.5-5.1 [facility] Protein [Mass/Vol] 7.6 g/dL 6.4-8.2 [facility] Sodium [Moles/Vol] 135 mmol/L 136-145 [facility] WBC (Bld) [#/Vol] 6.4 10*3/uL 4.4-11.0 [facility] Blood erythrocytes count (nu mber/volume)Ordered By: Roque Kang on 06-01-2023 RBC (Bld) [#/Vol] 4.90 10*6/uL 4.6-6.2 [facility] Blood hemoglobin measurement (mass/volume)Ordered By: Roque Kang on 06-01-2023 Hemoglobin (Bld) [Mass/Vol] 15.9 g/dL 13.0-16.5 [facility] Blood lymphocytes/100 leukoc ytesOrdered By: Roque Kang on 06-01-2023 Lymphocytes/100 WBC (Bld) 20.6 % 19-41 [facility] Blood monocytes/100 leukocyt esOrdered By: Roque Kang on 06-01-2023 Monocytes/100 WBC (Bld) 7.8 % 0-10 [facility] Blood platelet mean volumeOr dered By: Roque Kang on 06-01-2023 Platelet mean volume (Bld) [Entitic vol] 11.3 fL 6.2-12.0 [facility] Determination of erythrocyte mean corpuscular volume (MCV)Ordered By: Roque Kang on 06-01-2023 MCV (RBC) [Entitic vol] 91.2 fL 80-94 [facility] Hematocrit Auto (Bld) [Volum e fraction]Ordered By: Roque Kang on 06-01-2023 Hematocrit (Bld) [Volume fraction] 44.7 % 40-54 [facility] - Chemistry and C hemistry - challengeOrdered By: Roque Kang on 06-01-2023 ALP [Catalytic activity/Vol] 140 U/L 45-117 [facility] ALT [Catalytic activity/Vol] 140 U/L 16-61 [facility] CO2 [Moles/Vol] 25.0 mmol/L 21.0-32.0 [facility] Globulin (S) [Mass/Vol] 3.9 g/dL 2.2-4.2 [facility] Urea nitrogen/Creatinine [Mass ratio] 23.1 mg/mg 10-20 [facility] - Hematology and Cell countsOrdered By: Roque Kang on 06-01-2023 Erythrocyte distribution width (RBC) [Entitic vol] 42.1 fL 35.1-43.9 [facility] Erythrocyte distribution width (RBC) [Ratio] 12.7 % 11.6-14.6 [facility] Immature granulocytes/100 WBC (Bld) 0.300 % 0.0-0.9 [facility] Comment on above: IG% - Immature Granu locytes (promyelocytes, myelocytes and metamyelocytes) > 1% indicates that a LEFT SHIFT is Present. MCH (RBC) [Entitic mass] 32.4 pg 27.0-32.0 [facility] Nucleated RBC/100 WBC (Bld) [Ratio] 0 % 0-5 [facility] MCHC Auto (RBC) [Mass/Vol]Or dered By: Roque Kang on 06-01-2023 MCHC (RBC) [Mass/Vol] 35.6 g/dL 32-36 [facility] No Panel InformationOrdered By: Roque Kang on 06-01-2023 Estimated Creatinine Clearance Calc 76.84 ml/min [facility] Estimated GFR (MDRD) Amer 91 mL/min >60 [facility] Comment on above: GFR Calc Estimated GFR (MDRD) Non-Af Amer 75 mL/min >60 [facility] Comment on above: Non- GFR Calc Platelets bldOrdered By: Piyush Kang on 06-01-2023 Platelets (Bld) [#/Vol] 166 10*3/uL 150-450 [facility] Serum or plasma albumin liudmila urement (mass/volume)Ordered By: Roque Kang on 06-01-2023 Albumin [Mass/Vol] 3.7 g/dL 3.2-5.0 [facility] Serum or plasma albumin/glob ulin mass ratioOrdered By: Roque Kang on 06-01-2023 Albumin/Globulin [Mass ratio] 0.9 {ratio} 0.9-2.4 [facility] Serum or plasma calcium liudmila urement (mass/volume)Ordered By: Roque Kang on 06-01-2023 Calcium [Mass/Vol] 9.2 mg/dL 8.5-10.1 [facility] Serum or plasma creatinine m easurement (mass/volume)Ordered By: Roque Kang on 06-01-2023 Creatinine [Mass/Vol] 1.04 mg/dL 0.70-1.30 [facility] Comment on above: The validity of the calculated GFR & GFRAA in patients over 70 years has not been determined. Clinical correlation is essential. Serum or plasma ferritin ash surement (mass/volume)Ordered By: Roque Kang on 06-01-2023 Ferritin [Mass/Vol] 276 ng/mL 26-388 [facility] Serum or plasma urea nitroge n measurement (mass/volume)Ordered By: Roque Kang on 06-01-2023 Urea nitrogen [Mass/Vol] 24 mg/dL 7-18 [facility] Thin prep Papanicolaou smear with manual screeningOrdered By: Roque Kang on 06-01-2023 Thin prep Papanicolaou smear with manual screening 106 U/L 15-37 [facility] Thin prep Papanicolaou smear with manual screening 7 5-15 [facility] Basophil percentageOrdered B y: Ada Alexander on 03-22-2023 Cholesterol [Mass/Vol] 180 mg/dL <200 [facility] Comment on above: <200 mg/dL Desirable 200-240 mg/dL Borderline >240 mg/dL High Risk Triglyceride [Mass/Vol] 289 mg/dL <199 [facility] Comment on above: The drugs N-Acetylcy steine and Metamizole may falsely depress this assay.Serum Triglycerides Reference Interval Normal <150 mg/dL Borderline high 150 - 199 mg/dL High 200 - 499 mg/dL Very High > or = 500 mg/dL No Panel InformationOrdered By: Ada Alexander on 03-22-2023 Urine Microalbumin/Creatinin e Ratio 13.1 mg/g CRE <30 [facility] Serum or plasma cholesterol in HDL measurement (mass/volume)Ordered By: Ada Alexander on 03-22-2023 Cholesterol in HDL [Mass/Vol] 43 mg/dL >40 [facility] Comment on above: The drugs N-Acetylcy steine and Metamizole may falsely depress this assay. Reference Range HDL <40 mg/dL Low HDL Cholesterol HDL >or= 60 mg/dL High HDL Cholesterol Serum or plasma cholesterol in VLDL measurement (mass/volume)Ordered By: Ada Alexander on 03-22-2023 Cholesterol in VLDL [Mass/Vol] 58 mg/dL 5-40 [facility] Serum or plasma low density lipoprotein (LDL) cholesterol measurement (mass/volume)Ordered By: Ada Alexander on 03-22-2023 Cholesterol in LDL [Mass/Vol] 79 mg/dL 0-130 [facility] Thin prep Papanicolaou smear with manual screeningOrdered By: Ada Alexander on 03-22-2023 Thin prep Papanicolaou smear with manual screening 19.1 mg/L NO RANGE EST. [facility] Urine creatinine measurement (mass/volume)Ordered By: Ada Alexander on 03-22-2023 Creatinine (U) [Mass/Vol] 146.00 mg/dL NO RANGE EST. [facility] Whole blood hemoglobin A1c/t otal hemoglobin ratio (mass fraction)Ordered By: Ada Alexander on 03-22-2023 HbA1c (Bld) [Mass fraction] 7.5 % 3.8-5.6 [facility] Comment on above: Normal < 5.7 % Predi abetic 5.7 - 6.4 % Diabetic >or= 6.5 % Please note range changes. Absolute lymphocyte countOrd ered By: Latoya Wadsworth on 03-07-2023 Lymphocytes Auto (Unsp spec) [#/Vol] 1.44 10*3/uL 0.83-4.51 [facility] Basophil percentageOrdered B y: Latoya Wadsworth on 03-07-2023 Basophils/100 WBC (Bld) 0.4 % 0-1 [facility] Chloride [Moles/Vol] 102 mmol/L 98-107 [facility] Eosinophils/100 WBC (Bld) 3.1 % 0-5 [facility] Glucose [Mass/Vol] 188 mg/dL 74-106 [facility] Comment on above: Fasting Glucose resu lt greater than or equal to 126 mg/dL suggests DIABETES MELLITUS per A.D.A. criteria. Neutrophils (Bld) [#/Vol] 5.1 10*3/uL 2.0-7.7 [facility] Neutrophils/100 WBC (Bld) 68.1 % 47-70 [facility] Potassium [Moles/Vol] 3.7 mmol/L 3.5-5.1 [facility] Sodium [Moles/Vol] 137 mmol/L 136-145 [facility] WBC (Bld) [#/Vol] 7.5 10*3/uL 4.4-11.0 [facility] Blood erythrocytes count (nu mber/volume)Ordered By: Latoya Wadsworth on 03-07-2023 RBC (Bld) [#/Vol] 4.58 10*6/uL 4.6-6.2 [facility] Blood hemoglobin measurement (mass/volume)Ordered By: Latoya Wadsworth on 03-07-2023 Hemoglobin (Bld) [Mass/Vol] 15.6 g/dL 13.0-16.5 [facility] Blood lymphocytes/100 leukoc ytesOrdered By: Latoya Wadsworth on 03-07-2023 Lymphocytes/100 WBC (Bld) 19.2 % 19-41 [facility] Blood monocytes/100 leukocyt esOrdered By: Latoya Wadsworth on 03-07-2023 Monocytes/100 WBC (Bld) 8.9 % 0-10 [facility] Blood platelet mean volumeOr dered By: Latoya Wdasworth on 03-07-2023 Platelet mean volume (Bld) [Entitic vol] 11.4 fL 6.2-12.0 [facility] Determination of erythrocyte mean corpuscular volume (MCV)Ordered By: Latoya Wadsworth on 03-07-2023 MCV (RBC) [Entitic vol] 93.9 fL 80-94 [facility] Hematocrit Auto (Bld) [Volum e fraction]Ordered By: Latoya Wadsworth on 03-07-2023 Hematocrit (Bld) [Volume fraction] 43.0 % 40-54 [facility] - Chemistry and C hemistry - challengeOrdered By: Latoya Wadsworth on 03-07-2023 CO2 [Moles/Vol] 26.0 mmol/L 21.0-32.0 [facility] Urea nitrogen/Creatinine [Mass ratio] 15.4 mg/mg 10-20 [facility] - Hematology and Cell countsOrdered By: Latoya Wadsworth on 03-07-2023 Erythrocyte distribution width (RBC) [Entitic vol] 44.7 fL 35.1-43.9 [facility] Erythrocyte distribution width (RBC) [Ratio] 13.1 % 11.6-14.6 [facility] Immature granulocytes/100 WBC (Bld) 0.300 % 0.0-0.9 [facility] Comment on above: IG% - Immature Granu locytes (promyelocytes, myelocytes and metamyelocytes) > 1% indicates that a LEFT SHIFT is Present. MCH (RBC) [Entitic mass] 34.1 pg 27.0-32.0 [facility] Nucleated RBC/100 WBC (Bld) [Ratio] 0 % 0-5 [facility] MCHC Auto (RBC) [Mass/Vol]Or dered By: Latoya Wadsworth on 03-07-2023 MCHC (RBC) [Mass/Vol] 36.3 g/dL 32-36 [facility] No Panel InformationOrdered By: Latoya Wadsworth on 03-07-2023 Estimated GFR (MDRD) Amer 67 mL/min >60 [facility] Comment on above: GFR Calc Estimated GFR (MDRD) Non-Af Amer 55 mL/min >60 [facility] Comment on above: Non- GFR Calc Platelets bldOrdered By: Shakeel Wadsworth on 03-07-2023 Platelets (Bld) [#/Vol] 167 10*3/uL 150-450 [facility] Serum or plasma calcium liudmila urement (mass/volume)Ordered By: Latoya Wadsworth on 03-07-2023 Calcium [Mass/Vol] 9.5 mg/dL 8.5-10.1 [facility] Serum or plasma creatinine m easurement (mass/volume)Ordered By: Latoya Wadsworth on 03-07-2023 Creatinine [Mass/Vol] 1.36 mg/dL 0.70-1.30 [facility] Comment on above: The validity of the calculated GFR & GFRAA in patients over 70 years has not been determined. Clinical correlation is essential. Serum or plasma urea nitroge n measurement (mass/volume)Ordered By: Latoya Wadsworth on 03-07-2023 Urea nitrogen [Mass/Vol] 21 mg/dL 7-18 [facility] Thin prep Papanicolaou smear with manual screeningOrdered By: Latoya Wadsworth on 03-07-2023 Thin prep Papanicolaou smear with manual screening 9 5-15 [facility] Absolute lymphocyte countOrd ered By: Grover Lemons on 01-18-2023 Lymphocytes Auto (Unsp spec) [#/Vol] 1.65 10*3/uL 0.83-4.51 [facility] Basophil percentageOrdered B y: Grover Lemons on 01-18-2023 Basophils/100 WBC (Bld) 0.5 % 0-1 [facility] Chloride [Moles/Vol] 105 mmol/L 98-107 [facility] Eosinophils/100 WBC (Bld) 1.1 % 0-5 [facility] Glucose [Mass/Vol] 152 mg/dL 74-106 [facility] Comment on above: Fasting Glucose resu lt greater than or equal to 126 mg/dL suggests DIABETES MELLITUS per A.D.A. criteria. Neutrophils (Bld) [#/Vol] 6.1 10*3/uL 2.0-7.7 [facility] Neutrophils/100 WBC (Bld) 70.8 % 47-70 [facility] Potassium [Moles/Vol] 3.6 mmol/L 3.5-5.1 [facility] Sodium [Moles/Vol] 136 mmol/L 136-145 [facility] WBC (Bld) [#/Vol] 8.5 10*3/uL 4.4-11.0 [facility] Blood erythrocytes count (nu mber/volume)Ordered By: Grover Lemons on 01-18-2023 RBC (Bld) [#/Vol] 5.04 10*6/uL 4.6-6.2 [facility] Blood hemoglobin measurement (mass/volume)Ordered By: Grover Lemons on 01-18-2023 Hemoglobin (Bld) [Mass/Vol] 17.2 g/dL 13.0-16.5 [facility] Blood lymphocytes/100 leukoc ytesOrdered By: Grover Lemons on 01-18-2023 Lymphocytes/100 WBC (Bld) 19.3 % 19-41 [facility] Blood monocytes/100 leukocyt esOrdered By: Grover Lemons on 01-18-2023 Monocytes/100 WBC (Bld) 7.8 % 0-10 [facility] Blood platelet mean volumeOr dered By: Grover Lemons on 01-18-2023 Platelet mean volume (Bld) [Entitic vol] 11.3 fL 6.2-12.0 [facility] Determination of erythrocyte mean corpuscular volume (MCV)Ordered By: Grover Lemons on 01-18-2023 MCV (RBC) [Entitic vol] 93.1 fL 80-94 [facility] Hematocrit Auto (Bld) [Volum e fraction]Ordered By: Grover Lemons on 01-18-2023 Hematocrit (Bld) [Volume fraction] 46.9 % 40-54 [facility] - Chemistry and C hemistry - challengeOrdered By: Grover Lemons on 01-18-2023 CO2 [Moles/Vol] 24.0 mmol/L 21.0-32.0 [facility] Urea nitrogen/Creatinine [Mass ratio] 21.0 mg/mg 10-20 [facility] - Hematology and Cell countsOrdered By: Grover Lemons on 01-18-2023 Erythrocyte distribution width (RBC) [Entitic vol] 42.9 fL 35.1-43.9 [facility] Erythrocyte distribution width (RBC) [Ratio] 12.6 % 11.6-14.6 [facility] Immature granulocytes/100 WBC (Bld) 0.500 % 0.0-0.9 [facility] Comment on above: IG% - Immature Granu locytes (promyelocytes, myelocytes and metamyelocytes) > 1% indicates that a LEFT SHIFT is Present. MCH (RBC) [Entitic mass] 34.1 pg 27.0-32.0 [facility] Nucleated RBC/100 WBC (Bld) [Ratio] 0 % 0-5 [facility] MCHC Auto (RBC) [Mass/Vol]Or dered By: Grover Lemons on 01-18-2023 MCHC (RBC) [Mass/Vol] 36.7 g/dL 32-36 [facility] No Panel InformationOrdered By: Grover Lemons on 01-18-2023 Estimated Creatinine Clearance Calc 76.11 ml/min [facility] Estimated GFR (MDRD) Amer 90 mL/min >60 [facility] Comment on above: GFR Calc Estimated GFR (MDRD) Non-Af Amer 74 mL/min >60 [facility] Comment on above: Non- GFR Calc Troponin I High Sensitivity 11 pg/mL 3.0-78.0 [facility] Comment on above: Please Note: New Aicha t Units and Gender Specific Reference Ranges. For more information see Policy Stat Procedure Maria Stein High Sensitivity Troponin (TNIH) and attachments. Platelets bldOrdered By: Nunu Lemons on 01-18-2023 Platelets (Bld) [#/Vol] 188 10*3/uL 150-450 [facility] Serum or plasma calcium liudmila urement (mass/volume)Ordered By: Grover Lemons on 01-18-2023 Calcium [Mass/Vol] 9.8 mg/dL 8.5-10.1 [facility] Serum or plasma creatinine m easurement (mass/volume)Ordered By: Grover Lemons on 01-18-2023 Creatinine [Mass/Vol] 1.05 mg/dL 0.70-1.30 [facility] Comment on above: The validity of the calculated GFR & GFRAA in patients over 70 years has not been determined. Clinical correlation is essential. Serum or plasma urea nitroge n measurement (mass/volume)Ordered By: Grover Lemons on 01-18-2023 Urea nitrogen [Mass/Vol] 22 mg/dL 7-18 [facility] Thin prep Papanicolaou smear with manual screeningOrdered By: Grover Lemons on 01-18-2023 Thin prep Papanicolaou smear with manual screening 7 5-15 [facility] Absolute lymphocyte countOrd ered By: Roque Kang on 12-08-2022 Lymphocytes Auto (Unsp spec) [#/Vol] 1.64 10*3/uL 0.83-4.51 [facility] Basophil percentageOrdered B y: Roque Kang on 12-08-2022 Basophils/100 WBC (Bld) 0.5 % 0-1 [facility] Bilirubin [Mass/Vol] 0.90 mg/dL 0.20-1.00 [facility] Comment on above: For patients on eltr ombopag therapy, use of Dimension Maria Stein TBIL is not recommended. Chloride [Moles/Vol] 104 mmol/L 98-107 [facility] Eosinophils/100 WBC (Bld) 1.7 % 0-5 [facility] Glucose [Mass/Vol] 129 mg/dL 74-106 [facility] Comment on above: Fasting Glucose resu lt greater than or equal to 126 mg/dL suggests DIABETES MELLITUS per A.D.A. criteria. LDH [Catalytic activity/Vol] 189 U/L 87-241 [facility] Neutrophils (Bld) [#/Vol] 4.2 10*3/uL 2.0-7.7 [facility] Neutrophils/100 WBC (Bld) 64.3 % 47-70 [facility] Potassium [Moles/Vol] 3.9 mmol/L 3.5-5.1 [facility] Protein [Mass/Vol] 7.9 g/dL 6.4-8.2 [facility] Sodium [Moles/Vol] 137 mmol/L 136-145 [facility] WBC (Bld) [#/Vol] 6.5 10*3/uL 4.4-11.0 [facility] Blood erythrocytes count (nu mber/volume)Ordered By: Roque Kang on 12-08-2022 RBC (Bld) [#/Vol] 4.91 10*6/uL 4.6-6.2 [facility] Blood hemoglobin measurement (mass/volume)Ordered By: Roque Kang on 12-08-2022 Hemoglobin (Bld) [Mass/Vol] 16.6 g/dL 13.0-16.5 [facility] Blood lymphocytes/100 leukoc ytesOrdered By: Rouqe Kang on 12-08-2022 Lymphocytes/100 WBC (Bld) 25.2 % 19-41 [facility] Blood monocytes/100 leukocyt esOrdered By: Roque Kang on 12-08-2022 Monocytes/100 WBC (Bld) 7.8 % 0-10 [facility] Blood platelet mean volumeOr dered By: Roque Kang on 12-08-2022 Platelet mean volume (Bld) [Entitic vol] 10.9 fL 6.2-12.0 [facility] Determination of erythrocyte mean corpuscular volume (MCV)Ordered By: Roque Kang on 12-08-2022 MCV (RBC) [Entitic vol] 93.5 fL 80-94 [facility] Hematocrit Auto (Bld) [Volum e fraction]Ordered By: Roque Kang on 12-08-2022 Hematocrit (Bld) [Volume fraction] 45.9 % 40-54 [facility] Laboratory - Chemistry and C hemistry - challengeOrdered By: Roque Kang on 12-08-2022 ALP [Catalytic activity/Vol] 107 U/L 45-117 [facility] ALT [Catalytic activity/Vol] 69 U/L 16-61 [facility] CO2 [Moles/Vol] 25.0 mmol/L 21.0-32.0 [facility] Globulin (S) [Mass/Vol] 4.0 g/dL 2.2-4.2 [facility] Urea nitrogen/Creatinine [Mass ratio] 29.5 mg/mg 10-20 [facility] Laboratory - Hematology and Cell countsOrdered By: Roque Kang on 12-08-2022 Erythrocyte distribution width (RBC) [Entitic vol] 44.2 fL 35.1-43.9 [facility] Erythrocyte distribution width (RBC) [Ratio] 12.9 % 11.6-14.6 [facility] Immature granulocytes/100 WBC (Bld) 0.500 % 0.0-0.9 [facility] Comment on above: IG% - Immature Granu locytes (promyelocytes, myelocytes and metamyelocytes) > 1% indicates that a LEFT SHIFT is Present. MCH (RBC) [Entitic mass] 33.8 pg 27.0-32.0 [facility] Nucleated RBC/100 WBC (Bld) [Ratio] 0 % 0-5 [facility] MCHC Auto (RBC) [Mass/Vol]Or dered By: Roque Kang on 12-08-2022 MCHC (RBC) [Mass/Vol] 36.2 g/dL 32-36 [facility] No Panel InformationOrdered By: Roque Kang on 12-08-2022 Estimated Creatinine Clearance Calc 86.87 ml/min [facility] Estimated GFR (MDRD) Amer 105 mL/min >60 [facility] Comment on above: GFR Calc Estimated GFR (MDRD) Non-Af Amer 87 mL/min >60 [facility] Comment on above: Non- GFR Calc Platelets bldOrdered By: Piyush Knag on 12-08-2022 Platelets (Bld) [#/Vol] 175 10*3/uL 150-450 [facility] Serum or plasma albumin liudmila urement (mass/volume)Ordered By: Roque Kang on 12-08-2022 Albumin [Mass/Vol] 3.9 g/dL 3.2-5.0 [facility] Serum or plasma albumin/glob ulin mass ratioOrdered By: Roque Kang on 12-08-2022 Albumin/Globulin [Mass ratio] 1.0 {ratio} 0.9-2.4 [facility] Serum or plasma calcium liudmila urement (mass/volume)Ordered By: Roque Kang on 12-08-2022 Calcium [Mass/Vol] 10.0 mg/dL 8.5-10.1 [facility] Serum or plasma creatinine m easurement (mass/volume)Ordered By: Roque Kang on 12-08-2022 Creatinine [Mass/Vol] 0.92 mg/dL 0.70-1.30 [facility] Comment on above: The validity of the calculated GFR & GFRAA in patients over 70 years has not been determined. Clinical correlation is essential. Serum or plasma ferritin ash surement (mass/volume)Ordered By: Roque Kang on 12-08-2022 Ferritin [Mass/Vol] 98 ng/mL 26-388 [facility] Serum or plasma urea nitroge n measurement (mass/volume)Ordered By: Roque Kang on 12-08-2022 Urea nitrogen [Mass/Vol] 27 mg/dL 7-18 [facility] Thin prep Papanicolaou smear with manual screeningOrdered By: Roque Kang on 12-08-2022 Thin prep Papanicolaou smear with manual screening 48 U/L 15-37 [facility] Thin prep Papanicolaou smear with manual screening 8 5-15 [facility] Laboratory - Microbiology an d Antimicrobial susceptibilityon 10-28-2022 S. pyogenes Ag IA Ql (Unsp spec) Negative [facility] Provider Note - ED v3on 12-25 [...] SIGNS: T PRBP SpO2O2(LPM) %FiO2 Method 04-Jan-2022 08:48:[id number]/76 96 MDM MDM/ED COURSE: CC: I have [...] ill patient: no Electronic Signatures: Devi Barry ([employer]) (Signed 04-Jan-2022 09:42) Authored: HPI, PMH, PE, Results/Vital Signs, MDM/ED Course, Clinical Impression, Attestation, Chart Review, Scores Last Updated: 04-Jan-2022 09:42 by Devi Barry ([employer]) [facility] Absolute lymphocyte counton 12-09-2021 Lymphocytes Auto (Unsp spec) [#/Vol] 1.35 10*3/uL 0.83-4.51 [facility] Work Phone: [phone] Basophil percentageon 2021 Basophils/100 WBC (Bld) 0.2 % 0-1 [facility] Work Phone: [phone] Bilirubin [Mass/Vol] 0.80 mg/dL 0.20-1.00 [facility] Work Phone: [phone] Comment on above: For patients on eltr ombopag therapy, use of Dimension Maria Stein TBIL is not recommended. Chloride [Moles/Vol] 103 mmol/L 98-107 [facility] Work Phone: [phone] Eosinophils/100 WBC (Bld) 1.2 % 0-5 [facility] Work Phone: [phone] Glucose [Mass/Vol] 155 mg/dL 74-106 [facility] Work Phone: [phone] Comment on above: Fasting Glucose resu lt greater than or equal to 126 mg/dL suggests DIABETES MELLITUS per A.D.A. criteria. Neutrophils (Bld) [#/Vol] 4.5 10*3/uL 2.0-7.7 [facility] Work Phone: [phone] Neutrophils/100 WBC (Bld) 70.2 % 47-70 [facility] Work Phone: [phone] Potassium [Moles/Vol] 3.8 mmol/L 3.5-5.1 [facility] Work Phone: Protein [Mass/Vol] 7.7 g/dL 6.4-8.2 [facility] Work Phone: Sodium [Moles/Vol] 137 mmol/L 136-145 [facility] Work Phone: WBC (Bld) [#/Vol] 6.5 10*3/uL 4.4-11.0 [facility] Work Phone: [phone] Blood erythrocytes count (nu mber/volume)on 12-09-2021 RBC (Bld) [#/Vol] 4.74 10*6/uL 4.6-6.2 [facility] Work Phone: [phone] Blood hemoglobin measurement (mass/volume)on 12-09-2021 Hemoglobin (Bld) [Mass/Vol] 15.9 g/dL 13.0-16.5 [facility] Work Phone: Blood lymphocytes/100 leukoc yteson 12-09-2021 Lymphocytes/100 WBC (Bld) 20.9 % 19-41 [facility] Work Phone: Blood monocytes/100 leukocyt eson 12-09-2021 Monocytes/100 WBC (Bld) 7.0 % 0-10 [facility] Work Phone: Blood platelet mean volumeon 12-09-2021 Platelet mean volume (Bld) [Entitic vol] 11.0 fL 6.2-12.0 [facility] Work Phone: [phone] Determination of erythrocyte mean corpuscular volume (MCV)on 12-09-2021 MCV (RBC) [Entitic vol] 94.5 fL 80-94 [facility] Work Phone: Hematocrit Auto (Bld) [Volum e fraction]on 12-09-2021 Hematocrit (Bld) [Volume fraction] 44.8 % 40-54 [facility] Work Phone: [phone] Laboratory - Chemistry and C hemistry - challengeon 06-15-2022 ALP [Catalytic activity/Vol] 96 U/L 45-117 [facility] Work Phone: ALT [Catalytic activity/Vol] 81 U/L 16-61 [facility] Work Phone: [phone] CO2 [Moles/Vol] 25.0 mmol/L 21.0-32.0 [facility] Work Phone: [phone] Globulin (S) [Mass/Vol] 3.9 g/dL 2.2-4.2 [facility] Work Phone: [phone] Urea nitrogen/Creatinine [Mass ratio] 20.3 mg/mg 10-20 [facility] Work Phone: Laboratory - Hematology and Cell countson 12-09-2021 Erythrocyte distribution width (RBC) [Entitic vol] 44.2 fL 35.1-43.9 [facility] Work Phone: [phone] Erythrocyte distribution width (RBC) [Ratio] 12.8 % 11.6-14.6 [facility] Work Phone: [phone] Immature granulocytes/100 WBC (Bld) 0.500 % 0.0-0.9 [facility] Work Phone: [phone] Comment on above: IG% - Immature Granu locytes (promyelocytes, myelocytes and metamyelocytes) > 1% indicates that a LEFT SHIFT is Present. MCH (RBC) [Entitic mass] 33.5 pg 27.0-32.0 [facility] Work Phone: [phone] Nucleated RBC/100 WBC (Bld) [Ratio] 0 % 0-5 [facility] Work Phone: [phone] MCHC Auto (RBC) [Mass/Vol]on 12-09-2021 MCHC (RBC) [Mass/Vol] 35.5 g/dL 32-36 [facility] Work Phone: [phone] No Panel Informationon 12-09 Estimated Creatinine Clearance Calc 63.33 ml/min [facility] Work Phone: [phone] Estimated GFR (MDRD) Amer 72 mL/min >60 [facility] Work Phone: Comment on above: GFR Calc Estimated GFR (MDRD) Non-Af Amer 59 mL/min >60 [facility] Work Phone: Comment on above: Non- GFR Calc Platelets bldon 12-09-2021 Platelets (Bld) [#/Vol] 166 10*3/uL 150-450 [facility] Work Phone: Serum or plasma albumin liudmila urement (mass/volume)on 12-09-2021 Albumin [Mass/Vol] 3.8 g/dL 3.2-5.0 [facility] Work Phone: Serum or plasma albumin/glob ulin mass ratioon 12-09-2021 Albumin/Globulin [Mass ratio] 1.0 {ratio} 0.9-2.4 [facility] Work Phone: Serum or plasma [id number] protein tumor marker measurement (units/volume)Ordered By: Roque Kang on 12-09-2021 AFP.tumor marker Qn 1.7 ng/mL 0.0-8.4 [facility] Comment on above: [employer] El ectrochemiluminescence Immunoassay(ECLIA)Values obtained with different assay methods or kits cannotbe used interchangeably. Results cannot be interpreted asabsolute evidence of the presence or absence of malignantdisease.This test is not interpretable in females.Performed at: [employer] [address] [id number] Director: Hao Marks PhD, Phone: [phone] Serum or plasma calcium liudmila urement (mass/volume)on 12-09-2021 Calcium [Mass/Vol] 9.4 mg/dL 8.5-10.1 [facility] Work Phone: Serum or plasma creatinine m easurement (mass/volume)on 12-09-2021 Creatinine [Mass/Vol] 1.28 mg/dL 0.70-1.30 [facility] Work Phone: Comment on above: The validity of the calculated GFR & GFRAA in patients over 70 years has not been determined. Clinical correlation is essential. Serum or plasma ferritin ash surement (mass/volume)on 12-09-2021 Ferritin [Mass/Vol] 107 ng/mL 26-388 [facility] Work Phone: Serum or plasma urea nitroge n measurement (mass/volume)on 12-09-2021 Urea nitrogen [Mass/Vol] 26 mg/dL 7-18 [facility] Work Phone: Thin prep Papanicolaou smear with manual screeningon 12-09-2021 Thin prep Papanicolaou smear with manual screening 53 U/L 15-37 [facility] Work Phone: Thin prep Papanicolaou smear with manual screening 9 5-15 [facility] Work Phone: Thin prep Papanicolaou smear with manual screening 191 U/L 87-241 [facility] Work Phone: Covid 19 Resultson 2 [...] You may also be contacted by the [facility] to see if any of your [...] or Naproxen (Aleve) can also be used. Dpwk-scz-hvucseo cough and cold medicines can be used according to the instructions on the package. Some kblj-akq-xxwvdps medicines also contain acetaminophen. Make sure you [...] water are not available, use alcohol-based hand furnace helper. Avoid touching your eyes, nose, and mouth [...] 24 janice (more content not included)... Normal [facility] INFLUENZA A/B, COVID 2019 PC R,SYMPTOMATICon 09-17-2021 INFLUENZA A, PCR Not detected Normal Not Detected [facility] Comment on above: Result Comment: Resp iratory virus testing is performed routinely by PCR for Influenza A/B and RSV. If Influenza and RSV PCR are negative, testing for parainfluenza 1,2,3 viruses and adenovirus is routinely performed for oncology inpatients and intensive care unit patients at [facility] and is available on request on other patients by calling Laboratory Client Services at [phone]. Not Detected results do not preclude Influenza A/B or RSV infections since the adequacy of sample collection or low viral burden may impact the clinical sensitivity of this test method. Performed By: #### C IFEOMA #### [facility] [address] [place] [address] INFLUENZA B, PCR Not detected Normal Not Detected [facility] Comment on above: Result Comment: Resp iratory virus testing is performed routinely by PCR for Influenza A/B and RSV. If Influenza and RSV PCR are negative, testing for parainfluenza 1,2,3 viruses and adenovirus is routinely performed for oncology inpatients and intensive care unit patients at [facility] and is available on request on other patients by calling Laboratory Client Services at [phone] Not Detected results do not preclude Influenza [...] by the Microbiology Laboratory, Department of Pathology, [facility], [place], [place]. It has not been cleared or approved by the US Food and Drug Administration; however, FDA clearance or approval is not currently required for clinical use. This test should not be regarded as investigational or for research purposes. Performed By: #### C OINP #### [facility] [address] [place] [address] SARS-CoV-2 (COVID-19) RNA JAYNE+probe Ql (Unsp spec) Not detected Normal Not Detected [facility] Comment on above: Result Comment: [...] patient management decisions. Fact sheet for providers: https://www.fda.gov/media/465862/download Fact sheet for patients: https://www.fda.gov/media/138038/download This test has received FDA Emergency Use Authorization (EUA) and has been verified by [facility] ([facility]). This test is only authorized for the duration of time that circumstances exist to justify the authorization of the emergency use of in vitro diagnostic tests for the detection of SARS-CoV-2 virus and/or diagnosis of COVID-19 infection under section 564(b)(1) of the Act, 21 U.S.C. 360bbb-3(b)(1), unless the authorization is terminated or revoked sooner. [facility] is certified under CLIA-88 as qualified to perform high complexity testing. Testing is performed in the [facility] laboratories located at [address] [place] [address]. Performed By: #### C OINP #### [address] [place] [address] INFLUENZA A/B, COVID 2019 PC R,SYMPTOMATICon 09-16-2021 Lab Specimen Source Nasal, Nasopharyngeal Normal [facility] Comment on above: Performed By: #### C OINP #### [address] [place] [address] DATE OF SYMPTOM ONSET [YYYYMMDD]? [id number] Normal [facility] Comment on above: Performed By: #### C OINP #### [address] [place] [address] Provider Note - ED v3on 08-26 Provider [...] quit ~40 years ago. 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 . Has grandchildren in [place]. OUTPATIENT MEDICATIONS: Home Medications Review Status for [...] SIGNS: T PRBP SpO2O2(LPM) %FiO2 Method 16-Sep-2021 10:41:[id number]/90 95 Recheck BP 147/75. MDM MDM/ED COURSE: [...] cough drops with some relief; no other elkp-ypp-usrxhhp medications or home remedies for symptom management. [...] Musculoskeletal: Grossly normal; appropriate for age. Integumentary: [place], warm, dry, and intact. No rashes or skin discoloration appreciated. Good skin turgor. Neurologic: Alert an (more content not included)... Normal [facility] Erythrocyte distribution wid th standard deviationon 11-01-2018 Erythrocyte distribution width (RBC) [Entitic vol] 43.7 fL 35.1-43.9 [facility] Iron measurement (mass/mass) on 11-01-2018 Iron (Unsp spec) [Mass/Mass] 108 ug/dL 65-175 [facility] Laboratory - Hematology and Cell countson 11-01-2018 Erythrocyte distribution width (RBC) [Ratio] 14.3 % 11.6-14.6 [facility] No Panel Informationon 11-01 Total Iron Binding Capacity 308 ug/dL 250-450 [facility] Serum or plasma iron saturat ion measurement (mass fraction)on 11-01-2018 Iron saturation [Mass fraction] 35.1 % 15.0-55.0 [facility] Total cell counton 9 Cells counted [employer] (Bld/Tiss) [#] Not Reportable [facility] Documentation of current medications (procedure) Done Invalid Interpretation Code [facility] Work Phone: [phone] Fall risk assessment No [facility] Work Phone: [phone] Clinical Lists Update: Prelo lab tester 11-12-2016 Left ventricular Ejection fraction 65 % [facility] Work Phone: [phone] Lab Report: AFP, Tumor Marke godfrey 07-28-2016 AFP TUMOR 2253 1.7 ng/mL 0.0-8.3 [facility] Work Phone: [phone] alpha-1 fetoprotein tumor marker, serum/plasma 1.7 ng/mL Invalid Interpretation Code 0.0-8.3 [facility] Work Phone: [phone] Lab Report: CBC W/Diff, Auto - EPLAB Onlyon 07-27-2016 Basophils/100 leukocytes 0.8 % Invalid Interpretation Code 0-1 [facility] Work Phone: Basophils/100 WBC (Bld) 0.8 % 0-1 [facility] Work Phone: Eosinophils/100 leukocytes 3.7 % Invalid Interpretation Code 0-5 [facility] Work Phone: Eosinophils/100 WBC (Bld) 3.7 % 0-5 [facility] Work Phone: [phone] Erythrocyte distribution width (RBC) [Ratio] 15.1 % High 11.6-14.6 [facility] Work Phone: [phone] Erythrocytes (RBC) 5.17 10*6/uL Invalid Interpretation Code 4.6-6.2 [facility] Work Phone: Hematocrit (Bld) [Volume fraction] 43.1 % 40-54 [facility] Work Phone: Hematocrit (HCT) 43.1 % Invalid Interpretation Code 40-54 [facility] Work Phone: Hemoglobin (HGB) 13.8 g/dL 13.0-16.5 [facility] Work Phone: Lymphocytes 1.36 X10 3/UL Invalid Interpretation Code 0.83-4.51 [facility] Work Phone: Lymphocytes (Bld) [#/Vol] 1.36 X10 3/UL 0.83-4.51 [facility] Work Phone: Lymphocytes/100 leukocytes 21.2 % Invalid Interpretation Code 19-41 [facility] Work Phone: Lymphocytes/100 WBC (Bld) 21.2 % 19-41 [facility] Work Phone: MCH 26.7 pg Low 27.0-32.0 [facility] Work Phone: MCH (RBC) [Entitic mass] 26.7 pg Low 27.0-32.0 [facility] Work Phone: MCHC 32.0 g/dL Invalid Interpretation Code 32-36 [facility] Work Phone: MCHC (RBC) [Mass/Vol] 32.0 g/dL 32-36 [facility] Work Phone: MCV 83.5 fL Invalid Interpretation Code 80-94 [facility] Work Phone: MCV (RBC) [Entitic vol] 83.5 fL 80-94 [facility] Work Phone: Monocytes/100 leukocytes 6.3 % Invalid Interpretation Code 0-10 [facility] Work Phone: Monocytes/100 WBC (Bld) 6.3 % 0-10 [facility] Work Phone: neutrophil count, blood 4.4 X10 3/UL Invalid Interpretation Code 2.0-7.7 [facility] Work Phone: Neutrophils (Bld) [#/Vol] 4.4 X10 3/UL 2.0-7.7 [facility] Work Phone: Neutrophils/100 leukocytes 67.9 % Invalid Interpretation Code 47-70 [facility] Work Phone: Neutrophils/100 WBC (Bld) 67.9 % 47-70 [facility] Work Phone: Platelet mean volume (Bld) [Entitic vol] 8.2 fL 6.2-12.0 [facility] Work Phone: Platelets 192 10*3/mm3 Invalid Interpretation Code 150-450 [facility] Work Phone: Platelets (Bld) [#/Vol] 192 10*3/mm3 150-450 [facility] Work Phone: PMV by Ruchi 8.2 fL Invalid Interpretation Code 6.2-12.0 [facility] Work Phone: RBC (Bld) [#/Vol] 5.17 10*6/uL 4.6-6.2 [facility] Work Phone: RDW-CA 15.1 % High 11.6-14.6 [facility] Work Phone: WBC (Bld) [#/Vol] 6.4 10*3/uL 4.4-11.0 [facility] Work Phone: WBC (Leukocytes) 6.4 10*3/uL Invalid Interpretation Code 4.4-11.0 [facility] Work Phone: Lab Report: Comprehensive Nm tabolic Profilon 07-27-2016 Alanine aminotransferase (ALT) 53 U/L 12-78 [facility] Work Phone: Albumin 3.7 g/dL 3.4-5.0 [facility] Work Phone: Albumin/Globulin Ratio 0.9 {ratio} 0.9-2.4 [facility] Work Phone: Alkaline phosphatase (ALP) 103 U/L Invalid Interpretation Code 45-117 [facility] Work Phone: [phone] ALP (Bld) [Catalytic activity/Vol] 103 U/L 45-117 [facility] Work Phone: [phone] Anion gap 10 mmol/L Invalid Interpretation Code 5-15 [facility] Work Phone: [phone] Anion gap [Moles/Vol] 10 mmol/L 5-15 [facility] Work Phone: [phone] Aspartate aminotransferase (AST) 42 U/L High 15-37 [facility] Work Phone: [phone] Bilirubin (total) 0.60 mg/dL 0.20-1.00 [facility] Work Phone: [phone] BUN/Creatinine Ratio 15.9 RATIO 10-[address] [facility] Work Phone: [phone] Calcium 9.0 mg/dL 8.5-10.1 [facility] Work Phone: [phone] Chloride 101 mmol/L 98-107 [facility] Work Phone: [phone] CO2 26.0 mmol/L Invalid Interpretation Code 21.0-32.0 [facility] Work Phone: [phone] CO2 (BldV) [Partial pressure] 26.0 mmol/L 21.0-32.0 [facility] Work Phone: [phone] Creatinine 1.07 mg/dL 0.70-1.30 [facility] Work Phone: [phone] eGFR (non-black) 90 mL/min/{1.73_m2} Invalid Interpretation Code >60 [facility] Work Phone: [phone] eGFR (non-black) 74 mL/min/{1.73_m2} >60 [facility] Work Phone: [phone] EST GFR - AA 90 mL/min >60 [facility] Work Phone: [phone] Globulin 4.0 g/dL High 2.3-3.5 [facility] Work Phone: [phone] Globulin (S) [Mass/Vol] 4.0 g/dL High 2.3-3.5 [facility] Work Phone: [phone] Glucose 163 mg/dL High 70-110 [facility] Work Phone: [phone] Glucose [Mass/Vol] 163 mg/dL High 70-110 [facility] Work Phone: [phone] Potassium 4.3 mmol/L 3.5-5.1 [facility] Work Phone: [phone] Protein 7.7 g/dL 6.4-8.2 [facility] Work Phone: [phone] Sodium 137 mmol/L 136-145 [facility] Work Phone: [phone] Urea nitrogen 17 mg/dL 7-18 [facility] Work Phone: [phone] Lab Report: Ferritinon 07-27 Ferritin 17 ng/mL Low 26-388 [facility] Work Phone: [phone] Lab Report: Ironon 7 Iron 52 ug/dL Low 65-175 [facility] Work Phone: [phone] Lab Report: Iron Binding Cap acity,Totalon 07-27-2016 iron binding capacity, total 322 ug/dL 250-450 [facility] Work Phone: [phone] Lab Report: LDHon 07-27-2016 lactate dehydrogenase - serum 184 U/L Invalid Interpretation Code 87-241 [facility] Work Phone: [phone] 184 U/L 87-241 [facility] Work Phone: [phone] Lab Report: Uric Acidon 06-29 Urate 5.8 mg/dL 3.5-7.2 [facility] Work Phone: [phone] Office Visit: 6 month f/u (H H) *PHQ9 Completeon 07-27-2016 Adolescent depression screening assessment Adolescent depression screening assessment Invalid Interpretation Code [facility] Work Phone: [phone] Adult depression screening assessment Adolescent depression screening assessment [facility] Work Phone: [phone] Dietary management education, guidance, and counseling (procedure) yes Invalid Interpretation Code [facility] Work Phone: [phone] Documentation of current medications (procedure) Done Invalid Interpretation Code [facility] Work Phone: [phone] Tobacco smoking status NHIS Former smoker [facility] Work Phone: [phone] Tobacco use CPHS Former smoker Invalid Interpretation Code [facility] [facility] Work Phone: [phone] Replaced Document: Jeri OCHOA Observationson 07-07-2016 EKG QRS axis 47 deg [facility] Work Phone: electrocardiogram interpretation Sinus Bradycardia WITHIN NORMAL LIMITS Invalid Interpretation Code [facility] Work Phone: [phone] GE use only - for [employer] import when terms are not otherwise specified 407 ms Invalid Interpretation Code [facility] Work Phone: [phone] Interpretation Sinus Bradycardia WI THIN NORMAL LIMITS [facility] Work Phone: P [place] 34 deg [facility] Work Phone: [phone] P wave axis, electrocardiogram 34 deg Invalid Interpretation Code [facility] Work Phone: MS Interval 170 ms [facility] Work Phone: [phone] MS interval, electrocardiogram 170 ms Invalid Interpretation Code [facility] Work Phone: Pulse (Heart Rate) 57 /min Invalid Interpretation Code [facility] Work Phone: QRS axis, electrocardiogram 47 deg Invalid Interpretation Code [facility] Work Phone: QRS Duration 84 ms [facility] Work Phone: QRS duration, electrocardiogram 84 ms Invalid Interpretation Code [facility] Work Phone: QT Interval new path ms [facility] Work Phone: QT interval, electrocardiogram new path ms Invalid Interpretation Code [facility] Work Phone: QTc Aldana 407 ms [facility] Work Phone: T [place] 29 deg [facility] Work Phone: T wave axis, electrocardiogram 29 deg Invalid Interpretation Code [facility] Work Phone: [phone] Clinical Lists Update: Prelo lab tester 06-08-2016 HbA1c 6.0 % [facility] Work Phone: [phone] Lab Report: Comprehensive Me tabolic Profilon 04-27-2016 Creatinine 89.70 mL/min Invalid Interpretation Code [facility] Work Phone: [phone] Lab Report: Protein Electro. Ur-Randomon 01-28-2016 Protein [Mass] in unspecified time Urine 8.9 mg/dL Not Estab. [facility] Work Phone: [phone] Lab Report: Protein Electrop h, Son 01-28-2016 Globulin . Invalid Interpretation Code [facility] Work Phone: [phone] M-SPIKE . [facility] Work Phone: [phone] Albumin 3.6 g/dL 2.9-4.4 [facility] Work Phone: [phone] Albumin/Globulin Ratio 0.9 (?) 0.7-1.7 [facility] Work Phone: [phone] ALPHA-1 GLOBUL 0.2 g/dL 0.0-0.4 [facility] Work Phone: [phone] ALPHA-2 GLOBUL 0.9 g/dL 0.4-1.0 [facility] Work Phone: [phone] BETA GLOBULIN 1.1 g/dL 0.7-1.3 [facility] Work Phone: [phone] GAMMA GLOBULIN 1.6 g/dL 0.4-1.8 [facility] Work Phone: [phone] Globulin 1.6 g/dL Invalid Interpretation Code 0.4-1.8 [facility] Work Phone: Globulin 1.1 g/dL Invalid Interpretation Code 0.7-1.3 [facility] Work Phone: Globulin 0.9 g/dL Invalid Interpretation Code 0.4-1.0 [facility] Work Phone: Globulin 0.2 g/dL Invalid Interpretation Code 0.0-0.4 [facility] Work Phone: Globulin 3.8 g/dL Invalid Interpretation Code 2.2-3.9 [facility] Work Phone: Globulin (S) [Mass/Vol] 3.8 g/dL 2.2-3.9 [facility] Work Phone: [phone] INTERPRETATION Comment . [facility] Work Phone: [phone] lab comments Comment Invalid Interpretation Code . [facility] Work Phone: [phone] NOTE: Comment . [facility] Work Phone: [phone] Protein 7.4 g/dL 6.0-8.5 [facility] Work Phone: [phone] serum protein electrophoresis, interpretation/comment Comment Invalid Interpretation Code . [facility] Work Phone: [phone] Lab Report: Bilirubin, Direc ton 01-23-2016 Bilirubin (direct) 0.12 mg/dL 0.00-0.30 [facility] Work Phone: [phone] Lab Report: CBC W/Diff, Auto matedon 01-23-2016 Erythrocyte distribution width (RBC) [Ratio] 44.2 fL High 35.1-43.9 [facility] Work Phone: [phone] Immature granulocytes (Bld) [#/Vol] 0.200 % 0.0-0.9 [facility] Work Phone: [phone] immature granulocytes, percentage of total cells, blood 0.200 % Invalid Interpretation Code 0.0-0.9 [facility] Work Phone: [phone] red blood cell distribution width, size density 44.2 fL High 35.1-43.9 [facility] Work Phone: [phone] Lab Report: Lipid Profileon 07-15-2015 Cholesterol 166 mg/dL 200 [facility] Work Phone: [phone] HDL Cholesterol 37 mg/dL Low [facility] Work Phone: [phone] LDL Cholesterol 106 mg/dL 0-130 [facility] Work Phone: [phone] Triglyceride 115 mg/dL [facility] Work Phone: [phone] very low density lipoproteins 23 mg/dL 5-40 [facility] Work Phone: [phone] Replaced Document: Microalb: Creat Ratio,Random URon 07-15-2015 ACR (microalbumin/creatini ne) ratio 6.9 MG/G CRE Invalid Interpretation Code <30 mg/g CRE [facility] Phone: Albumin/Creatinine DL <= 20 mg/L (U) [Ratio] 6.9 MG/G CRE <30 mg/g CRE [facility] Work Phone: [phone] Urine, creatinine 159.00 mg/dL NO RANGE EST. [facility] Work Phone: [phone] Urine, microalbumin 1.1 mg/dL Units converted. See lab report for original value. [facility] Work Phone: Office Visiton 04-16-2015 Smoking cessation education (procedure) yes Invalid Interpretation Code [facility] Phone: Lab Report: CBC W/Diff, Auto - EPLAB Onlyon 01-15-2015 Absolute Neut 3.9 X10 3/UL 2.0-7.7 [facility] Work Phone: Absolute Neutrophil count 3.9 X10 3/UL Invalid Interpretation Code 2.0-7.7 [facility] Phone: Lab Report: LDHon 01-15-2015 Lactate dehydrogenase (LDH) 193 U/L 84-246 [facility] Phone: Office Visit: 3 month follow up.on 06-27-2012 Colonoscopy (procedure) Hyperplastic Polyp Invalid Interpretation Code [facility] Phone: Vital Signs Date Time Vital Sign Value Performing Clinician Facility 11-27-2024 14:040 Body height 187.[address] Ada Alexander DO Work Phone: [facility] 11-27-2024 14:040 Body mass index (BMI) [Ratio] 35.6 kg/m2 Dr. Ada Alexander DO Work Phone: [facility] 11-27-2024 14:040 Body temperature 98.2 [degF] Dr. Ada Alexander DO Work Phone: [facility] 11-27-2024 14:19-0400 Body weight 125.[address] Ada Alexander DO Work Phone: [facility] 11-27-2024 14:19-0400 Diastolic blood pressure 77 mm[Hg] Dr. Ada Alexander DO Work Phone: [facility] 11-27-2024 14:19-0400 Heart rate 63 /min Dr. Ada Alexander DO Work Phone: [facility] 11-27-2024 14:19-0400 Respiratory rate 18 /min Dr. Ada Alexander DO Work Phone: [facility] 11-27-2024 14:19-0400 SaO2% (BldA) [Mass fraction] 93 % Dr. Ada Alexander DO Work Phone: [facility] 11-27-2024 14:19-0400 Systolic blood pressure 116 mm[Hg] Dr. Ada Alexander DO Work Phone: [facility] 05-30-2024 15:44-0500 Body temperature 97.2 [degF] Dr. Ada Alexander DO Work Phone: [facility] 05-30-2024 15:44-0500 Diastolic blood pressure 67 mm[Hg] Dr. Ada Alexander DO Work Phone: [facility] 05-30-2024 15:44-0500 Heart rate 54 /min Dr. Ada Alexander DO Work Phone: [facility] 05-30-2024 15:44-0500 Respiratory rate 16 /min Dr. Ada Alexander DO Work Phone: [facility] 05-30-2024 15:44-0500 SaO2% (BldA) [Mass fraction] 96 % Dr. Ada Alexander DO Work Phone: [facility] 05-30-2024 15:44-0500 Systolic blood pressure 141 mm[Hg] Dr. Ada Alexander DO Work Phone: [facility] 05-30-2024 15:27-0500 Body mass index (BMI) [Ratio] 38.5 kg/m2 Dr. Ada Alexander DO Work Phone: [facility] 09-01-2023 10:11-0500 Diastolic blood pressure 84 mm[Hg] Dr. Ada Alexander Work Phone: [facility] 09-01-2023 10:11-0500 Systolic blood pressure 128 mm[Hg] Dr. Ada Alexander Work Phone: [facility] 09-01-2023 09:30-0500 Body height 187.[address] Ada Alexander Work Phone: [facility] 09-01-2023 09:30-0500 Body mass index (BMI) [Ratio] 34.1 kg/m2 Dr. Ada Alexander Work Phone: [facility] 09-01-2023 09:30-0500 Body weight 120.[address] Ada Alexander Work Phone: [facility] 09-01-2023 09:30-0500 Heart rate 59 /min Dr. Ada Alexander Work Phone: [facility] 09-01-2023 09:30-0500 Respiratory rate 20 /min Dr. Ada Alexander Work Phone: [facility] 09-01-2023 09:30-0500 SaO2% (BldA) [Mass fraction] 93 % Dr. Ada Alexander Work Phone: [facility] 08-01-2023 18:14-0500 Diastolic blood pressure 88 mm[Hg] Dr. Ada Alexander Work Phone: [facility] 08-01-2023 18:14-0500 Heart rate 76 /min Dr. Ada Alexander Work Phone: [facility] 08-01-2023 18:14-0500 Respiratory rate 14 /min Dr. Ada Alexander Work Phone: [facility] 08-01-2023 18:14-0500 SaO2% (BldA) [Mass fraction] 99 % Dr. Ada Alexander Work Phone: [facility] 08-01-2023 18:14-0500 Systolic blood pressure 147 mm[Hg] Dr. Ada Alexander Work Phone: [facility] 08-01-2023 13:32-0500 Body height 187.[address] Ada Alexander Work Phone: [facility] 08-01-2023 13:32-0500 Body mass index (BMI) [Ratio] 35.9 kg/m2 Dr. Ada Alexander Work Phone: [facility] 08-01-2023 13:32-0500 Body temperature 96.8 [degF] Dr. Ada Alexander Work Phone: [facility] 08-01-2023 13:32-0500 Body weight 126.[address] Ada Alexander Work Phone: [facility] 06-01-2023 15:35-0500 Diastolic blood pressure 63 mm[Hg] Dr. Ada Alexander Work Phone: [facility] 06-01-2023 15:35-0500 Heart rate 61 /min Dr. Ada Alexander Work Phone: [facility] 06-01-2023 15:35-0500 Respiratory rate 16 /min Dr. Ada Alexander Work Phone: [facility] 06-01-2023 15:35-0500 Systolic blood pressure 123 mm[Hg] Dr. Ada Alexander Work Phone: [facility] 06-01-2023 15:22-0500 Body height 187.[address] Ada Alexander Work Phone: [facility] 06-01-2023 14:36-0500 Body mass index (BMI) [Ratio] 35.9 kg/m2 Dr. Ada Alexander Work Phone: [facility] 06-01-2023 14:36-0500 Body temperature 97.5 [degF] Dr. Ada Alexander Work Phone: [facility] 06-01-2023 14:36-0500 Body weight 127.[address] Ada Alexander Work Phone: [facility] 06-01-2023 14:36-0500 Diastolic blood pressure 78 mm[Hg] Dr. Ada Alexander Work Phone: [facility] 06-01-2023 14:36-0500 Heart rate 63 /min Dr. Ada Alexander Work Phone: [facility] 06-01-2023 14:36-0500 Respiratory rate 18 /min Dr. Ada Alexander Work Phone: [facility] 06-01-2023 14:36-0500 SaO2% (BldA) [Mass fraction] 95 % Dr. Ada Alexander Work Phone: [facility] 06-01-2023 14:36-0500 Systolic blood pressure 118 mm[Hg] Dr. Ada Alexander Work Phone: [facility] 03-22-2023 09:10-0400 Body height 187.[address] Ada Alexander Work Phone: [facility] 03-22-2023 09:10-0400 Body mass index (BMI) [Ratio] 36.1 kg/m2 Dr. Ada Alexander Work Phone: [facility] 03-22-2023 09:10-0400 Body weight 127.[address] Ada Alexander Work Phone: [facility] 03-22-2023 09:10-0400 Diastolic blood pressure 77 mm[Hg] Dr. Ada Alexander Work Phone: [facility] 09-26-2023 09:10-0400 Heart rate 74 /min Dr. Ada Alexander Work Phone: [facility] 03-22-2023 09:10-0400 Respiratory rate 18 /min Dr. Ada Alexander Work Phone: [facility] 03-22-2023 09:10-0400 SaO2% (BldA) [Mass fraction] 94 % Dr. Ada Alexander Work Phone: [facility] 03-22-2023 09:10-0400 Systolic blood pressure 146 mm[Hg] Dr. Ada Alexander Work Phone: [facility] 03-08-2023 14:24-0400 Body height 187.[address] Ada Alexander Work Phone: [facility] 03-08-2023 14:24-0400 Body weight 130.[address] Ada Alexander Work Phone: [facility] 03-08-2023 07:53-0400 Body mass index (BMI) [Ratio] 36.8 kg/m2 Dr. Ada Alexander Work Phone: [facility] 01-20-2023 10:28-0400 Body height 187.[address] Ada Alexander Work Phone: [facility] 01-20-2023 10:28-0400 Body mass index (BMI) [Ratio] 36.1 kg/m2 Dr. Ada Alexander Work Phone: [facility] 01-20-2023 10:28-0400 Body weight 127.[address] Ada Alexander Work Phone: [facility] 01-20-2023 10:28-0400 Diastolic blood pressure 87 mm[Hg] Dr. Ada Alexander Work Phone: [facility] 01-20-2023 10:28-0400 Heart rate 97 /min Dr. Ada Alexander Work Phone: [facility] 01-20-2023 10:28-0400 Respiratory rate 18 /min Dr. Ada Alexander Work Phone: [facility] 01-20-2023 10:28-0400 SaO2% (BldA) [Mass fraction] 98 % Dr. Ada Alexander Work Phone: [facility] 01-20-2023 10:28-0400 Systolic blood pressure 124 mm[Hg] Dr. Ada Alexander Work Phone: [facility] 01-18-2023 17:13-0400 Heart rate 85 /min Dr. Ada Alexander Work Phone: [facility] 01-18-2023 17:13-0400 Respiratory rate 18 /min Dr. Ada Alexander Work Phone: [facility] 01-18-2023 17:13-0400 SaO2% (BldA) [Mass fraction] 95 % Dr. Ada Alexander Work Phone: [facility] 01-18-2023 15:02-0400 Body mass index (BMI) [Ratio] 36.5 kg/m2 Dr. Ada Alexander Work Phone: [facility] 01-18-2023 15:02-0400 Body temperature 97 [degF] Dr. Ada Alexander Work Phone: [facility] 01-18-2023 15:02-0400 Body weight [address] Ada Alexander Work Phone: [facility] 01-18-2023 15:02-0400 Diastolic blood pressure 84 mm[Hg] Dr. Ada Alexander Work Phone: [facility] 01-18-2023 15:02-0400 Systolic blood pressure 128 mm[Hg] Dr. Ada Alexander Work Phone: [facility] 12-08-2022 14:49-0400 Body mass index (BMI) [Ratio] 36.8 kg/m2 Dr. Ada Alexander Work Phone: [facility] 12-08-2022 14:49-0400 Body temperature 97.7 [degF] Dr. Ada Alexander Work Phone: [facility] 12-08-2022 14:49-0400 Body weight 126.[address] Ada Alexander Work Phone: [facility] 12-08-2022 14:49-0400 Diastolic blood pressure 77 mm[Hg] Dr. Ada Alexander Work Phone: [facility] 12-08-2022 14:49-0400 Heart rate 62 /min Dr. Ada Alexander Work Phone: [facility] 12-08-2022 14:49-0400 Respiratory rate 16 /min Dr. Ada Alexander Work Phone: [facility] 12-08-2022 14:49-0400 SaO2% (BldA) [Mass fraction] 62 % Dr. Ada Alexander Work Phone: [facility] 12-08-2022 14:49-0400 Systolic blood pressure 133 mm[Hg] Dr. Ada Alexander Work Phone: [facility] 10-28-2022 17:05-0400 Body mass index (BMI) [Ratio] 36.9 kg/m2 Dr. Ada Alexander Work Phone: [facility] 10-28-2022 17:05-0400 Body temperature 97.8 [degF] Dr. Ada Alexander Work Phone: [facility] 10-28-2022 17:05-0400 Body weight [address] Ada Alexander Work Phone: [facility] 10-28-2022 17:05-0400 Diastolic blood pressure 90 mm[Hg] Dr. Ada Alexander Work Phone: [facility] 10-28-2022 17:05-0400 Heart rate 67 /min Dr. Ada Alexander Work Phone: [facility] 10-28-2022 17:05-0400 Respiratory rate 16 /min Dr. Ada Alexander Work Phone: [facility] 10-28-2022 17:05-0400 SaO2% (BldA) [Mass fraction] 96 % Dr. Ada Alexander Work Phone: [facility] 10-28-2022 17:05-0400 Systolic blood pressure 162 mm[Hg] Dr. Ada Alexander Work Phone: [facility] 06-09-2022 14:54-0500 Diastolic blood pressure 77 mm[Hg] Dr. Ada Alexander Work Phone: [facility] 06-09-2022 14:54-0500 Heart rate 67 /min Dr. Ada Alexander Work Phone: [facility] 06-09-2022 14:54-0500 Respiratory rate 16 /min Dr. Ada Alexander Work Phone: [facility] 06-09-2022 14:54-0500 Systolic blood pressure 141 mm[Hg] Dr. Ada Alexander Work Phone: [facility] 12-09-2021 16:36-0400 Diastolic blood pressure 71 mm[Hg] Dr. Ada Alexander Work Phone: [facility] Work Phone: 12-09-2021 16:36-0400 Heart rate 61 /min Dr. Ada Alexander Work Phone: [facility] Work Phone: 12-09-2021 16:36-0400 Respiratory rate 16 /min Dr. Ada Alexander Work Phone: [facility] Work Phone: 12-09-2021 16:36-0400 SaO2% (BldA) [Mass fraction] 92 % Dr. Ada Alexander Work Phone: [facility] 12-09-2021 16:36-0400 Systolic blood pressure 140 mm[Hg] Dr. Ada Alexander Work Phone: [facility] Work Phone: 12-09-2021 16:12-0400 Body mass index (BMI) [Ratio] 36.2 kg/m2 Dr. Ada Alexander Work Phone: [facility] 12-09-2021 15:00-0400 Body height 189.[address] Ada Alexander Work Phone: [facility] Work Phone: 12-09-2021 15:00-0400 Body mass index (BMI) [Ratio] 35.6 kg/m2 Dr. Ada Alexander Work Phone: [facility] Work Phone: 12-09-2021 15:00-0400 Body temperature 97.6 [degF] Dr. Ada Alexander Work Phone: [facility] Work Phone: 12-09-2021 15:00-0400 Body weight 127.[address] Ada Alexander Work Phone: [facility] Work Phone: 12-09-2021 15:00-0400 Diastolic blood pressure 73 mm[Hg] Dr. Ada Alexander Work Phone: [facility] Work Phone: 12-09-2021 15:00-0400 Heart rate 66 /min Dr. Ada Alexander Work Phone: [facility] Work Phone: 12-09-2021 15:00-0400 Respiratory rate 16 /min Dr. Ada Alexander Work Phone: [facility] Work Phone: 12-09-2021 15:00-0400 SaO2% (BldA) [Mass fraction] 93 % Dr. Ada Alexander Work Phone: [facility] Work Phone: 12-09-2021 15:00-0400 Systolic blood pressure 145 mm[Hg] Dr. Ada Alexander Work Phone: [facility] Work Phone: 09-16-2021 12:41-0400 Body height 187.9 cm Ada Alexander Other Phone: [facility] 09-16-2021 12:41-0400 Body temperature 98.42 [degF] Ada Alexander Other Phone: [facility] 09-16-2021 12:41-0400 Diastolic blood pressure 90 mm[Hg] Ada Alexander Other Phone: [facility] 09-16-2021 12:41-0400 Heart rate 61 /min Ada Alexander Other Phone: [facility] 09-16-2021 12:41-0400 Respiratory rate 16 /min Ada Alexander Other Phone: [facility] 09-16-2021 12:41-0400 SaO2% (BldA) [Mass fraction] 95 % Ada Alexander Other Phone: [facility] 09-16-2021 12:41-0400 Systolic blood pressure 168 mm[Hg] Ada Alexander Other Phone: [facility] 06-02-2021 12:03-0500 Body weight 129.[address] Ada Alexander Work Phone: [facility] 12-31-2020 13:46-0400 Body height 187.9 cm Ada Alexander Other Phone: [facility] 12-31-2020 13:46-0400 Body temperature 98.24 [degF] Ada Alexander Other Phone: [facility] 12-31-2020 13:46-0400 Diastolic blood pressure 73 mm[Hg] Ada Alexander Other Phone: [facility] 12-31-2020 13:46-0400 Heart rate 60 /min Ada Alexander Other Phone: [facility] 12-31-2020 13:46-0400 Respiratory rate 16 /min Ada Alexander Other Phone: [facility] 12-31-2020 13:46-0400 SaO2% (BldA) [Mass fraction] 97 % Ada Alexander Other Phone: [facility] 12-31-2020 13:46-0400 Systolic blood pressure 124 mm[Hg] Ada Alexander Other Phone: [facility] 04-30-2020 14:09-0500 Body temperature 97.3 [degF] Dr. Ada Alexander Work Phone: [facility] 11-15-2016 14:00-0400 BMI (Body Mass Index) 38.43 kg/m2 [facility] Work Phone: 11-15-2016 14:00-0400 Body weight 137.62 kg [facility] Work Phone: 11-15-2016 14:00-0400 BP Diastolic 80 mm[Hg] [facility] Work Phone: 11-15-2016 14:00-0400 BP Systolic 144 mm[Hg] [facility] Work Phone: 11-15-2016 14:00-0400 Pulse (Heart Rate) 56 /min Yamini Lim [facility] Work Phone: 11-15-2016 14:00-0400 Weight 137.62 kg Yamini Lim [facility] Work Phone: 07-27-2016 10:38-0500 BMI (Body Mass Index) 37.92 kg/m2 [facility] Work Phone: 07-27-2016 10:38-0500 Body Temperature 97.5 [degF] [facility] Work Phone: 07-27-2016 10:38-0500 Body weight 136.09 kg Yamini Lim [facility] Work Phone: 07-27-2016 10:38-0500 BP Diastolic 79 mm[Hg] Latoya Bynum RN [facility] Work Phone: 07-27-2016 10:38-0500 BP Systolic 123 mm[Hg] Latoya Bynum RN [facility] Work Phone: 07-27-2016 10:38-0500 BSA (Body Surface Area) 2.59 m2 Latoya Bynum RN [facility] Work Phone: 07-27-2016 10:38-0500 Height 189.23 cm Latoya Bynum RN [facility] Work Phone: 07-27-2016 10:38-0500 Pulse (Heart Rate) 60 /min [facility] Work Phone: 07-27-2016 10:38-0500 Pulse Oximetry 95 % Latoya Bynum RN [facility] Work Phone: 07-27-2016 10:38-0500 [...] [facility] Work Phone: 01-27-2016 11:180400 Body Temperature 98.29 [degF] [facility] Work Phone: Encounters Encounter Date Encounter Type Care Provider Facility Start: 05-11-2025 ambulatory [facility] Facility: [facility] Start: 05-02-2025 ambulatory [facility] Facility: [facility] Start: 04-22-2025 End: 04-22-2025 Emergency department patient visit [facility] Facility:[facility] Start: 04-20-2025 End: 04-20-2025 Emergency department patient visit [facility] Facility:[facility] Start: 11-27-2024 Registered Recurring Gabriela [facility] Start: 11-27-2024 End: 11-27-2024 Patient encounter procedure Gabriela [facility] Work Phone: Start: 11-27-2024 End: 11-27-[address] Ada Alexander DO Work Phone: [facility] Work Phone: Start: 07-28-2024 ambulatory [facility] Facility: [facility] Start: 07-12-2024 End: 07-12-2024 ambulatory [facility] Facility:[facility] Start: 06-22-2024 End: 06-22-2024 ambulatory [facility] Facility:[facility] Start: 06-19-2024 End: 06-19-2024 ambulatory [facility] Facility:[facility] Start: 06-06-2024 End: 06-06-2024 ambulatory [facility] Facility:[facility] Start: 05-30-2024 End: 05-30-2024 ambulatory Ada MatthewsFrancois Facility:[facility] Start: 05-25-2024 End: 05-26-2024 ambulatory [facility] Facility:[facility] Start: 05-07-2024 End: 05-07-2024 ambulatory Ada Alexander Facility:[facility] Start: 03-19-2024 End: 03-19-2024 ambulatory ARI Frias [facility] Start: 03-16-2024 End: 03-16-2024 ambulatory [facility] Start: 03-09-2024 End: 03-09-2024 ambulatory [facility] Start: 03-05-2024 End: 03-05-2024 ambulatory [facility] Start: 02-24-2024 End: 02-24-2024 ambulatory [facility] Start: 02-20-2024 End: 02-20-2024 ambulatory [facility] Start: 02-16-2024 End: 02-16-2024 ambulatory ANDREZ PINEDO [facility] Start: 10-20-2023 End: 10-25-[address] Ada Alexander Work Phone: [facility] Work Phone: Start: 10-20-2023 End: 10-25-[address] Ada Alexander Work Phone: [facility] Work Phone: Start: 09-22-2023 End: 09-25-[address] Ada Alexander Work Phone: [facility] Work Phone: Start: 09-22-2023 End: 09-25-[address] Ada Alexander Work Phone: [facility] Work Phone: Start: 09-01-2023 End: 09-01-[address] Ada Alexander Work Phone: [facility] Work Phone: Start: 08-01-2023 End: 08-01-2023 Emergency department patient visit Dr. Ada Alexander Work Phone: [facility] Work Phone: Start: 07-11-2023 End: 07-11-[address] Ada Alexander Work Phone: [facility] Work Phone: Start: 07-11-2023 End: 07-11-[address] Ada Alexander Work Phone: [facility] Work Phone: Start: 06-14-2023 End: 06-14-[address] Ada [facility] Work Phone: [facility] [facility] Start: 06-14-2023 End: 06-14-[address] Ada Alexander Work Phone: [facility]-Ultrasound, [facility] Work Phone: Start: 06-01-2023 End: 06-01-[address] Ada Alexander Work Phone: [facility] Work Phone: Start: 06-01-[address] Ada Alexander Work Phone: [facility] Start: 03-22-2023 End: 03-22-[address] Ada Alexander Work Phone: [facility] Work Phone: Start: 03-22-2023 End: 03-22-[address] Ada Alexander Work Phone: [facility] Work Phone: Start: 03-22-2023 End: 03-22-[address] Ada Alexander Work Phone: [facility]-Laboratory Work Phone: Start: 03-09-2023 End: 03-09-2023 Admission to same day surgery center Dr. Ada Alexander Work Phone: [facility]-Cable Television Technician/Special Procedures Work Phone: Start: 03-09-2023 End: 03-09-[address] Ada Alexander Work Phone: [facility] Work Phone: Start: 02-13-2023 Non-patient / Non-visit Dr. Janae Alexander Work Phone: [facility] Start: 01-28-2023 Non-patient / Non-visit Dr. Janae Alexander Work Phone: [facility] Work Phone: Start: 01-28-2023 Non-patient / Non-visit Dr. Janae Alexander Work Phone: [facility] Start: 01-28-2023 End: 01-28-[address] Ada Alexander Work Phone: [facility] Work Phone: Start: 01-28-2023 End: 01-28-[address] [facility] Work [facility]: Start: 01-20-2023 End: 01-20-[address] Ada Alexander Work Phone: [facility] Work Phone: Start: 01-18-2023 End: 01-18-2023 Emergency department patient visit Dr. Ada Alexander Work Phone: [facility]Emergency Department Work Phone: Start: 12-08-[address] Ada Alexander Work Phone: [facility] Start: 12-08-2022 End: 12-08-[address] Ada Alexander Work Phone: [facility] Work Phone: Start: 10-28-2022 End: 10-28-[address] Ada Alexander Work Phone: [facility] Work Phone: Start: 12-15-2021 End: 12-15-[address] Ada Alexander Work Phone: [facility] Start: 12-09-2021 End: 12-09-[address] Ada lAexander Work Phone: [facility] Start: 12-09-[address] Ada Alexander Work Phone: [facility] Start: 09-16-2021 End: 09-16-2021 Emergency department patient visit [facility] 02 Start: 12-31-2020 End: 12-31-2020 Emergency department patient visit [facility] 02 Start: 06-19-2018 End: 09-15-2018 Patient encounter procedure Ray Eshenaur Facility:[facility] Procedures Date Procedure Procedure Detail Performing Clinician [...] medications Yamini Lim Start: 11-15-2016 End: 11-15-2016 LIGHT CLEANER Latoya Wadsworth PA-C Work Phone: Start: 11-15-2016 [...] Faustino Chin MD Start: 06-04-2016 End: 06-04-2016 LIGHT CLEANER Faustino Chin MD Start: 06-04-2016 End: 06-11-2016 Echocardiography Faustino Chin MD Start: 06-04-2016 End: 06-04-2016 Follow Up Appt 6 weeks Faustino Cihn MD Start: 04-27-2016 End: 04-27-2016 *CMP Complete Metabolic Panel Morgan Tomy Alam Work Phone: Start: 04-27-2016 End: 04-27-2016 Ferritin Eddie Huitron Alam Work Phone: Start: 04-27-2016 End: 04-27-2016 Iron Eddie Huitron Alam Work Phone: Start: 04-27-2016 End: 04-27-2016 Iron binding capacity [Mass/volume] in Serum or Plasma Eddie Huitron Alam Work Phone: Start: 04-27-2016 End: 04-27-2016 Lactate dehydrogenase (LDH) Morgan M A gonzáles Work Phone: Start: 04-27-2016 End: 04-27-2016 Urate Morgan Tomy Alam Work Phone: Start: 01-23-2016 End: 01-26-2016 *CBC with Differential Morgan Tomy Alam Work Phone: Start: 01-23-2016 End: 01-26-2016 *CMP Complete Metabolic Panel Morgan Tomy Alam Work Phone: Start: 01-23-2016 End: 01-26-2016 Ferritin Eddie Huitron Alam Work Phone: Start: 01-23-2016 End: 01-26-2016 Lactate dehydrogenase (LDH) Morgan M A gonzáles Work Phone: Start: 01-23-2016 [...] 04-16-2015 End: 04-16-2015 Lactate dehydrogenase (LDH) Eddie Clark gonzáles Work Phone: Start: 04-16-2015 End: 04-16-2015 [...] Care Activity Detail Author Start: 11-27-2024 Phlebotomy [facility] Start: 11-27-2024 [facility] Start: 05-30-2024 Phlebotomy [facility] Start: 08-01-2023 Incentive spirometry [facility] Start: 08-01-2023 [facility] Start: 06-01-2023 Phlebotomy [facility] Start: 06-09-2022 Phlebotomy [facility] Start: 12-09-2021 Phlebotomy [facility] Start: 06-02-2021 Phlebotomy [facility] Start: 05-02-2019 Flushing of Port-a-cath [facility] Work Phone: Start: 05-02-2019 Irrigation of vascular catheter [facility] Start: 05-11-2018 Ferritin [Mass/volume] in Serum or Plasma [facility] Start: 04-29-2017 End: 04-29-2017 Appointment Appointment [facility] Work Phone: Start: 04-29-2017 End: 04-29-2017 Appointment Appointment [facility] Work Phone: Start: 11-15-2016 End: 11-15-2016 Appointment [facility] Work Phone: Start: 11-15-2016 End: 11-15-2016 LIGHT CLEANER LIGHT CLEANER [facility] Work Phone: Start: 11-15-2016 End: 07-27-2016 Echo exam of abdomen US Abdomen, limited [facility] Work Phone: Start: 11-15-2016 End: 11-15-2016 Follow Up Appt 6 months Follow Up Appt 6 months [facility] Work Phone: Start: 10-25-2016 Ferritin [Mass/volume] in Serum or Plasma [facility] Start: 10-25-2016 Iron [Mass/mass] in Unspecified specimen [facility] Start: 10-18-2016 End: 07-27-2016 *CBC w/Diff - oncology ONLY *CBC w/Diff - oncology ONLY [facility] Work Phone: Start: 10-18-2016 End: 07-27-2016 *CMP Complete Metabolic Panel *CMP Complete Metabolic Panel [facility] Work Phone: Start: 10-18-2016 End: 07-27-2016 Cwcji-3-Gdwkmxywflo (AFP) tumor marker *AFPT - Alpha-Fetoprotein -Serum [facility] Work Phone: Start: 10-18-2016 End: 07-27-2016 Ferritin *Ferritin [facility] Work Phone: Start: 10-18-2016 End: 07-27-2016 Iron *Iron [facility] Work Phone: Start: 10-18-2016 End: 07-27-2016 Iron binding capacity [Mass/volume] in Serum or Plasma *TIBC [facility] Work Phone: Start: 07-27-2016 End: 01-27-2016 *CBC with Differential *CBC with Differential [facility] Work Phone: Start: 07-27-2016 End: 07-27-2016 *CMP Complete Metabolic Panel *CMP Complete Metabolic Panel [facility] Work Phone: Start: 07-27-2016 End: 07-27-2016 Ferritin *Ferritin [facility] Work Phone: Start: 07-27-2016 End: 07-27-2016 Iron *Iron [facility] Work Phone: Start: 07-27-2016 End: 07-27-2016 Iron binding capacity [Mass/volume] in Serum or Plasma *TIBC [facility] Work Phone: Start: 07-27-2016 End: 07-27-2016 Lactate dehydrogenase (LDH) *LDH -LDH (Lactate Dehydrogenase) [facility] Work Phone: Start: 07-27-2016 End: 07-27-2016 Urate *Uric Acid Blood [facility] Work Phone: Start: 07-07-2016 End: 07-07-2016 Electrocardiogram, complete EKG (In office) [facility] Work Phone: Start: 07-07-2016 End: 07-07-2016 Follow Up Appt 4 months Follow Up Appt 4 months [facility] Work Phone: Start: 07-07-2016 End: 07-07-2016 MMM MMM [facility] Work Phone: Start: 06-04-2016 End: 06-04-2016 LIGHT CLEANER LIGHT CLEANER [facility] Work Phone: Start: 06-04-2016 End: 06-04-2016 Echocardiography Echocardiogram (complete) [facility] Work Phone: Start: 06-04-2016 End: 06-04-2016 Follow Up Appt 6 weeks Follow Up Appt 6 weeks [facility] Work Phone: Start: 04-27-2016 End: 01-27-2016 *CBC with Differential *CBC with Differential [facility] Work Phone: Start: 04-27-2016 End: 04-27-2016 *CMP Complete Metabolic Panel *CMP Complete Metabolic Panel [facility] Work Phone: Start: 04-27-2016 End: 04-27-2016 Ferritin *Ferritin [facility] Work Phone: Start: 04-27-2016 End: 04-27-2016 Iron *Iron [facility] Work Phone: Start: 04-27-2016 End: 04-27-2016 Iron binding capacity [Mass/volume] in Serum or Plasma *TIBC [facility] Work Phone: Start: 04-27-2016 End: 04-27-2016 Lactate dehydrogenase (LDH) *LDH -LDH (Lactate Dehydrogenase) [facility] Work Phone: Start: 04-27-2016 End: 04-27-2016 Urate *Uric Acid Blood [facility] Work Phone: Start: 01-23-2016 End: 01-26-2016 *CBC with Differential *CBC with Differential [facility] Work Phone: Start: 01-23-2016 End: 01-26-2016 *CMP Complete Metabolic Panel *CMP Complete Metabolic Panel [facility] Work Phone: Start: 01-23-2016 End: [...] 11-25-2015 End: 11-26-2015 Urate *Uric Acid Blood [facility] Work Phone: Start: 10-15-2015 End: 04-16-2015 *CBC with Differential *CBC with Differential [facility] Work Phone: Start: 10-15-2015 End: 10-28-2015 *CMP Complete Metabolic Panel *CMP Complete Metabolic Panel [facility] Work Phone: Start: 10-15-2015 End: 10-28-2015 Ferritin *Ferritin [facility] Work Phone: Start: 10-15-2015 End: 10-28-2015 Lactate dehydrogenase (LDH) *LDH -LDH (Lactate Dehydrogenase) [facility] Work Phone: Start: 10-15-2015 End: 10-28-2015 Urate *Uric Acid Blood [facility] Work Phone: Start: 07-15-2015 End: 04-16-2015 *CBC with Differential *CBC with Differential [facility] Work Phone: Start: 07-15-2015 End: 07-15-2015 *CMP Complete Metabolic Panel *CMP Complete Metabolic Panel [facility] Work Phone: Start: 07-15-2015 End: 07-15-2015 Ferritin *Ferritin [facility] Work Phone: Start: 07-15-2015 End: 07-15-2015 Lactate dehydrogenase (LDH) *LDH -LDH (Lactate Dehydrogenase) [facility] Work Phone: Start: 07-15-2015 End: 07-15-2015 Urate *Uric Acid Blood [facility] Work Phone: Start: 04-16-2015 End: 01-01-2015 *CBC with Differential *CBC with Differential [facility] Work Phone: Start: 04-16-2015 End: 04-16-2015 *CMP Complete Metabolic Panel *CMP Complete Metabolic Panel [facility] Work Phone: Start: 04-16-2015 End: [...] Lactate dehydrogenase (LDH) *LDH -LDH (Lactate Dehydrogenase) [facility] Work Phone: Start: 01-15-2015 End: 01-15-2015 Urate *Uric Acid Blood [facility] Work Phone: Start: 10-16-2014 End: 10-10-2014 *CBC with Differential *CBC with Differential [facility] Work Phone: Start: 10-16-2014 End: 10-16-2014 *CMP Complete Metabolic Panel *CMP Complete Metabolic Panel [facility] Work Phone: Start: 10-16-2014 End: 10-16-2014 Ferritin *Ferritin [facility] Work Phone: Start: 10-16-2014 End: 10-16-2014 Lactate dehydrogenase (LDH) *LDH -LDH (Lactate Dehydrogenase) [facility] Work Phone: Start: 10-16-2014 End: 10-16-2014 Urate *Uric Acid Blood [facility] Work Phone: Start: 07-17-2014 End: 10-10-2014 *CBC with Differential *CBC with Differential [facility] Work Phone: Start: 07-17-2014 End: 10-10-2014 Ferritin *Ferritin [facility] Work Phone: CBC W Auto Different ial panel - Blood [facility] Work Phone: CBC W Auto Different ial panel - Blood [facility] CBC W Auto Different ial panel - Blood [facility] Comprehensive metabo lic 2000 panel - Serum or Plasma [facility] Ferritin [Mass/volum e] in Serum or Plasma [facility] Work Phone: Ferritin [Mass/volum e] in Serum or Plasma [facility] Ferritin [Mass/volum e] in Serum or Plasma [facility] Lactate dehydrogenas e measurement [facility] Patient Education [facility] Work Phone: Patient referral [facility] Work Phone: US Abdomen limited [facility] Immunizations Immunization Date Immunization Notes Care Provider Fa [facility] 05-16-[address] Ada Alexander Work Phone: [facility] 03-27-[address] Ada Alexander Work Phone: [facility] Payers Date Payer Category Payer Medicare 2018 Unknown 2017 Medicare [id number] [facility] [id number] 2017 Unknown [id number] 2016 Self-pay [id number] 2016 Unknown [id number] 1950 Unknown [id number] 2.16.84 [id number] 1950 Unknown [id number] 2.16.8 40.1.927544.3.579.2.1243 1952 Unknown [id number] 2.16.8 40.1.348285.3.579.2.1243 1950 Unknown [id number] 2.16.8 40.1.693565.3.579.2.1243 1952 Unknown [id number] 2.16.8 40.1.685610.3.579.2.1243 1950 Unknown [id number] 2.16.8 40.1.591147.3.579.2.1243 1950 Unknown [id number] 2.16.8 40.1.850891.3.579.2.1243 1950 Unknown [id number] 2.16.8 40.1.267302.3.579.2.1243 Unknown [id number] 2.16.8 40.1.390601.3.579.2.462 Unknown [id number] 2.16.8 40.1.951004.3.579.2.462 Unknown [id number] 2.16.8 40.1.592678.3.579.2.462 Unknown [id number] 2.16.8 40.1.990769.3.579.2.462 Unknown [id number] 2.16.8 40.1.282136.3.579.2.462 Unknown [id number] 2.16.8 40.1.717207.3.579.2.462 Unknown [id number] 2.16.8 40.1.353038.3.579.2.462 Unknown [id number] 2.16.8 40.1.035832.3.579.2.462 Unknown [id number] 2.16.8 40.1.769694.3.579.2.462 Unknown [id number] 2.16.8 40.1.469063.3.579.2.462 Unknown [id number] 2.16.8 40.1.692724.3.579.2.462 Unknown [id number] 2.16.8 40.1.030787.3.579.2.462 Unknown [id number] 2.16.8 40.1.963126.3.579.2.462 Unknown [id number] 2.16.8 40.1.466727.3.579.2.462 Unknown [id number] 2.16.8 40.1.428260.3.579.2.462 Social History Date Type Detail Facility [facility] Start: 05-26-2021 End: 09-01-2023 Tobacco smoking consumption unknown [facility] Start: 1950 Sex Assigned At Male [facility] Start: 09-01-2023 Tobacco smoking status NHIS Never smoked tobacco (finding) [facility] Medical Equipment Procedure Code Equipment Code [...] 06-14-2018 Primary uncemented total hip replacement trident trirandi hadley [facility] Start: 06-14-2018 Mental Status Date Assessment Result Facility 05-30-2024 Cognitive function Voice/Name [facility] Work Phone: 08-01-2023 Cognitive function Awake;Alert;A ppropriate;Elizao ws Commands [facility] Work Phone: 06-01-2023 Cognitive function Awake;Alert;A ppropriate;Follo ws Commands [facility] Work Phone: 01-18-2023 Cognitive function Level Of Cons ciousness Awake;Alert;Appropriate [facility] Work Phone: 12-09-2021 Cognitive function Level Of Cons ciousness Awake;Alert;Appropriate;Follo ws Commands [facility] Work Phone: 06-02-2021 Cognitive function Voice/Name [facility] Work Phone: Clinical Notes 02-14-2023 to 11-27-2024 Note Date & Type Note Facility 11-27-2024 Progress note [facility] 08-01-2023 Discharge summary Note Date/Time August 01, 2023 5:50pm [facility] Medical Records Department [address] [place] [address] Emergency Department Summary 08/01/23 MR#: [id number] Acct: [id number] Name: EDWIGE MAHMOOD Rep #:[id number] : 1950 72 From: Jose Luis Bell [...] in the urine. Not lightheaded or dizzy. [facility] Medical History Acute otitis externa of left ear Acute pharyngitis, unspecified Alcohol use Arthritis Back pain BiPAP (biphasic positive airway pressure) dependence Cirrhosis Depression Diverticulitis Essential (primary) hypertension Hemochromatosis Hyperlipidemia Hypertension Leg cramps Meniere disease Non-smoker Obesity MAURI (obstructive sleep apnea) Paroxysmal atrial flutter Personal history of colonic polyps Vertigo Wears dentures Wears hearing aid Wears partial dentures Home Medications zxdolhnk-cwo-vsrgz acid 0.4 mg-lycopene 300 mcg-lutein 250 mcg [...] Intermediate Pain in Verified 06/01/23 14:42 joints Qpdhfou-XVB-DwG Reductase AdvReac Unknown Verified 06/01/23 14:42 Inhibitor [Zqpwgwl-Boa-Uhu Reductase Inhibitor] Family History Mother COPD (chronic [...] We discussed that with the patient on Eliis We would often consider CT scan. But [...] 15 mg tablet 15 mg PO DAILY mwsdlvlh-vgj-HQ-lycopen-lutein 1 EACH tablet 1 ea PO DAILY [...] your Primary Care Provider. Call [facility] ([phone]) or report to the closest Emergency Room. Call 911 if necessary. 08/01/23 <Electronically signed by Jose Luis Bell MD> Cosigner Signature (if applicable): CC: Dr. Ada Alexander DO ~ Signed [facility] Work Phone: 1(661) 246-378708-21-2023 History and physical note Author Faustino Chin [facility] February 14, 2023 3:35pm Note Date/Time February 13, 2023 8: 52am [facility] Medical Records Department [address] [place] [address] History & Physical Exam 02/13/23 0846 MR#: [id number] Acct: [id number] Name: EDWIGE MAHMOOD Rep #:[id number] : 1950 72 From: Faustino Chin MD PCP: Dr. Ada Alexander, DO Status:PRE [facility] Location: [facility] History and Physical Date of Admission: 03/09/23 Edwige Mahmood is a 72 year-old gentleman that presents here today for cardioversion. He has a history of atrial flutter with a cardioversion in 2017 and 2018. 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 Faustino Chin MD; Dr. Ada Alexander, DO~ Signed [facility] Work Phone: Evaluation note* Diagnosis Onset Date Resolution Status Hemochromatosis chronic Hemochromatosis [facility] Work Phone: Evaluation note* Diagnosis Onset Date Resolution Status Acute otitis externa of left ear acute Acute pharyngitis, unspecified acute Hemochromatosis chronic Hemochromatosis chronic Fatigue acute Essential (primary) hypertension chronic Hyperlipidemia chronic Paroxysmal atrial flutter [facility] Work Phone: Evaluation note* Diagnosis Onset Date Resolution Status Hemochromatosis chronic Hemochromatosis chronic Fatigue acute Essential (primary) hypertension chronic Hyperlipidemia chronic Paroxysmal atrial flutter [facility] Work Phone: Evaluation note* Diagnosis Onset Date Resolution Status Hemochromatosis chronic Hemochromatosis chronic Fatigue acute Essential (primary) hypertension chronic Hyperlipidemia [facility] Ess[facility] (primary) hypertension chronic Hyperlipidemia chronic Paroxysmal atrial flutter [facility] Work Phone: Evaluation note* Diagnosis Onset Date Resolution Status Essential (primary) hypertension chronic Hyperlipidemia chronic Paroxysmal atrial flutter [facility]* Diagnosis Onset Date Resolution Status Hemochromatosis chronic Hemochromatosis chronic Essential (primary) hypertension chronic Hyperlipidemia chronic FCI (current) use of anticoagulants chronic Paroxysmal atrial flutter [facility] Work Phone: Evaluation note* Diagnosis Onset Date Resolution Status Essential (primary) hypertension chronic 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 Paroxysmal atrial flutter [facility] Work Phone: Evaluation note* Diagnosis Onset Date Resolution Status Admit Date Hemochromatosis chronic November 27, 2024 1:35pm Hemochromatosis chronic November 27, 2024 1:45pm [facility] Work Phone[facility] Work Phone: Hospital Discharge instructionsAmbulatory Orders* Iron Facility: [facility], Location: Laboratory * Ferritin Facility: [facility], Location: Laboratory * Ferritin Location: Laboratory [facility] Work Phone: Progress note Author Gabriela Crews [facility] Note Date/Time November 27, 2024 2:59p m [facility] [address] [address] OFFICE VISIT Date of Service: 11/27/24 1417 MR#: [id number] Acct: [id number] Name: EDWIGE MAHMOOD Rep #: [id number] : 1950 From: Gabriela Álvarez ch, NP VP PATIENT-C Age/Sex: 74/M Location[facility] Status: Signed HPI Subjective Date of [...] his bowelhabits, and swelling/pain of his extremities. [facility] Medical History Acute otitis externa of [...] (Intermediate, Verified 11/27/24 14:22) Pain in joints Ickeijj-AOS-EmT Reductase Inhibitor (Jasstei-Qrw-Rzn Reductase Inhibitor) Adverse Reaction (Verified 11/27/24 14:22) Unknown Medications ?Medication ?Instructions ?Recorded ?Confirmed ?Type qzzjundu-otm-xtblz acid 0.4 1 ea PO DAILY SUPPLEMENT [...] 11/27/24 1459 <Electronically signed by Gabriela warren VP PATIENT VP PATIENT-C> Date _ Gabriela Crews NP VP PATIENT-C Cosigner Signature: Date (if applicable) CC: ~ [facility] Work Phone: Reason for referral (narrative)No reason for referral [facility] Work Phone: Summary Purpose Family History No Family History Records Found Relationship Condition Age at Onset Recorded Date/T lynette mother Chronic obstructive pulmonary disease Unk nown father Cardiac disease Unknown Advance Directives No Advanced Directives Records Found Advance Directive Response Recorded Date/ Time Advance Directives Yes May 11:54am Living Will Yes May 26 4:42pm Power of Cooler Servicer Yes May 26, 2021 4:42pm Advance Directive Response Recorded Date/ Time Advance Directives Yes May 11:54am Living Will No January 18, 2023 3:06pm Power of Cooler Servicer No January 18 3:06pm Advance Directive Response Recorded Date/ Time Advance Directives on File No 2022 2:24pm Advance Directives No February 2:24pm Living Will No March 08, 2023 2:24pm Power of Cooler Servicer No February 2:24pm Advance Directive Response Recorded Date/ Time Advance Directives on File No 2022 1:24pm Advance Directives No February 1:24pm Living Will No March 08, 2023 1:24pm Power of Cooler Servicer No February 1:24pm Advance Directive Response Recorded Date/ Time Advance Directives No February 1:24pm Living Will No March 08, 2023 1:24pm Power of Cooler Servicer No February 1:24pm Advance Directive Response Recorded Date/ Time Advance Directives No February 1:24pm Living Will No August 01 5:45pm Power of Cooler Servicer No August 01, 2023 5:45pm Advance Directive Response Recorded Date/ Time Advance Directives No February 2:24pm Living Will No August 01 6:45pm Power of Cooler Servicer No August 01, 2023 6:45pm Advance Directive Response Recorded Date/ Time Living Will No April 27 11:50am Do you have a [facility] Power of Cooler Servicer? No April 27, 2016 11:50am Advance Directives No February 2:24pm Chief Complaint and Reason for Visit Chief Complaint ONC/HEM 6MO LABS PHLEBO? Hereditary hemochromatosis Reason for Visit Hemochromatosis Hemochromatosis Chief Complaint SORE THROAT 6MO LABS PHLEBO ONC/HEM FATIGUE S/P [facility] 01/18/23 [facility] Amb Documentation Reason for Visit Acute otitis externa of left ear Acute pharyngitis, unspecified Hemochromatosis Hemochromatosis Fatigue Essential (primary) hypertension Hyperlipidemia Paroxysmal atrial flutter Chief Complaint 6MO LABS PHLEBO ONC/HEM FATIGUE S/P [facility] 01/18/23 AFLUTTER AFIB Amb Documentation A FLUTTER A FLUTTER Reason for Visit Hemochromatosis Hemochromatosis Fatigue Essential (primary) hypertension Hyperlipidemia Paroxysmal atrial flutter Chief Complaint 6MO LABS PHLEBO ONC/HEM FATIGUE S/P 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 Ada Alexander , DO Primary Care Provider Active Team Status: Inactive Member Role Status Dates Dr. Ada Alexander , DO Primary Care Provider, Referrin g Provider Active Dr. Roque Kang MD Attending Provider Active Team Status: Inactive Member Role Status Dates Dr. Ada Alexander DO Primary Care Provider, Referrin g Provider Active Gloria Rdz PA, PA Attending Provider Active Team Status: Inactive Member Role Status Dates Dr. Ada Alexander , DO Primary Care Provider, Referrin g Provider Active Latoya Wadsworth PA, PA Attending Provider Active Team Status: Active Member Role Status Dates Dr. Ada Alexander DO Primary Care Provider Active Dr. Faustino Chin MD Attending Provider Active Team Status: Active Member Role Status Dates Dr. Ada Alexander DO Primary Care Provider Active Brandan Ma VP PATIENT, VP PATIENT-C Attending Provider Active Team Status: Active Member Role Status Dates Dr. Ada Alexander , DO Primary Care Prov ider, Family Provider, Referring Provider Active Gabriela Crews VP PATIENT, VP PATIENT-C Attending Provider Active Team Status: Inactive Member Role Status Dates Dr. Ada Francois , DO Primary Care Provider Active Dr. Grover [...] 2024 End: November 27, 2024 Gabriela Crews VP PATIENT, VP PATIENT-C Attending Provider Active Start: November 27, 2024 End: November 27, 2024 Team Status: Active Member Role Status Dates Dr. Ada Alexander DO Primary Care Provider Active Start: November 27, 2024 Dr. Ada Alexander DO Family Provider Active St art: November 27, 2024 Dr. Ada Alexander DO Referring Provider Active Start: November 27, 2024 Gabriela Crews VP PATIENT, VP PATIENT-C Attending Provider Active Start: November 27, 2024 [...] BE BASED ON THE PRIMARY CLINICAL RECORDS. [facility] provides no warranty or guarantee of the accuracy or completeness of information in this document.
== END | disposition home or self-care (01) ==
LOC: US 07:41
PROVIDERS: PCP Family Medicine; Referring Provider Nurse Practitioner Family; Visit Provider Nurse Practitioner Family
DX: E83.110 Hereditary hemochromatosis (principal)
CPT/HCPCS: 76705